=== PATIENT | male | born 1995 | race Hispanic/Latino ===

== ENCOUNTER 2017-12-13 07:13 | Emergency (ER) | payer SELFPAY ==
[2017-12-13] MEDS ORDERED: MEPERIDINE HCL 25 MG/0.5 ML ONE (08:32)
[2017-12-13] MEDS ORDERED: NA CHLORIDE 0.9% 1,000 ML ONE (08:33)
[2017-12-13] MEDS ORDERED: HYDROCODONE/APAP 10/325 TAB ONE (08:33)
--- NOTE | 2017-12-13 09:06 | EDPHYS ---
Physician Documentation [facility] Name: Jimenez Patrick Age: 22 yrs Sex: Male : 1995 Arrival Date: 12/13/2017 Time: 07:16 Bed 14 Private MD: ED Physician Dontrell Dunlap HPI: 12/13 07:51 This 22 yrs old Male presents to ER via Ambulatory with complaints of rn Abdominal Pain. 07:51 The patient presents with abdominal pain in the epigastric area. Onset: The rn symptoms/episode began/occurred last night. The symptoms do not radiate. Associated signs and symptoms: Pertinent negatives: anorexia, blood in stools, chest pain, constipation, diarrhea, dysuria, fever, headache, hematuria, nausea, palpitations, shortness of breath, vomiting, vomiting blood. Modifying factors: The symptoms are alleviated by nothing, the symptoms are aggravated by touching the area. Severity of pain: At its worst the pain was moderate in the emergency department the pain is unchanged. The patient has experienced similar episodes in the past. Reports hx of chronic pancreatitis, has had gallbladder removed in past, + epigastric abd pain since last night, identical to previous episodes. . Historical: - Allergies: 07:33 NKA; iw - Home Meds: 07:33 Humulin 70/30 100 unit/mL (70-30) Sub-Q susp [Active]; iw - PMHx: 07:33 Diabetes - IDDM; Pancreatitis; iw - PSHx: 07:33 Cholecystectomy; stents in pancreas; iw - Immunization history:: Adult Immunizations not up to date. - Social history:: Smoking status: Patient/guardian denies using tobacco. - Family history:: not pertinent. - Hospitalizations: : No recent hospitalization is reported. ROS: 07:51 Constitutional: Negative for fever, chills, and weight loss, Eyes: Negative for injury, rn pain, redness, and discharge, Cardiovascular: Negative for chest pain, palpitations, and edema, Respiratory: Negative for shortness of breath, cough, wheezing, and pleuritic chest pain, Abdomen/GI: Negative for nausea, vomiting, diarrhea, and constipation, MS/Extremity: Negative for injury and deformity, Skin: Negative for injury, rash, and discoloration, Neuro: Negative for headache, weakness, numbness, tingling, and seizure. Exam: 07:51 Constitutional: This is a well developed, well nourished patient who is awake, alert, rn and in no acute distress. Head/Face: Normocephalic, atraumatic. Eyes: Pupils equal round and reactive to light, extra-ocular motions intact. Lids and lashes normal. Conjunctiva and sclera are non-icteric and not injected. Cornea within normal limits. Periorbital areas with no swelling, redness, or edema. Cardiovascular: Regular rate and rhythm with a normal S1 and S2. No gallops, murmurs, or rubs. Normal PMI, no JVD. No pulse deficits. Respiratory: Lungs have equal breath sounds bilaterally, clear to auscultation and percussion. No rales, rhonchi or wheezes noted. No increased work of breathing, no retractions or nasal flaring. Abdomen/GI: soft, mild epigastric abd tenderness, no rebound, no masses, no peritoneal signs MS/ Extremity: Pulses equal, no cyanosis. Neurovascular intact. Full, normal range of motion. Equal circumference. Neuro: Awake and alert, GCS 15, oriented to person, place, time, and situation. Cranial nerves II-XII grossly intact. Motor strength 5/5 in all extremities. Sensory grossly intact. Cerebellar exam normal. Normal gait. Vital Signs: 07:33 BP 136 / 100; Pulse 85; Resp 16; Temp 98.2; Pulse Ox 99% on R/A; Weight 104.33 kg; iw Height 5 ft. 9 in. (175.26 cm); Pain 7/10; 08:52 BP 134 / 98; Pulse 61; Resp 16; Pulse Ox 98% on R/A; ae1 09:14 BP 134 / 76; Pulse 49; Resp 15; Pulse Ox 99% on R/A; mh5 10:00 BP 127 / 82; Pulse 70; Pulse Ox 99% on R/A; ap3 07:33 Body Mass Index 33.96 (104.33 kg, 175.26 cm) iw MDM: 07:29 Patient medically screened. rn 09:04 Differential diagnosis: pancreatitis. Data reviewed: vital signs, nurses notes, and as rn a result, I will discharge patient. Counseling: I had a detailed discussion with the patient and/or guardian regarding: the historical points, exam findings, and any diagnostic results supporting the discharge/admit diagnosis, the need for outpatient follow up, to return to the emergency department if symptoms worsen or persist or if there are any questions or concerns that arise at home. Response to treatment: the patient's symptoms have markedly improved after treatment, sleeping comfortably. Special discussion: I discussed with the patient/guardian in detail that at this point there is no indication for admission to the hospital. It is understood, however, that if the symptoms persist or worsen the patient needs to return immediately for re-evaluation. Based on the history and exam findings, there is no indication for further emergent testing or inpatient evaluation. I discussed with the patient/guardian the need to see the channeling machine runner for further evaluation of the symptoms. 12/13 07:35 Order name: IV Start; Complete Time: 08:39 rn Administered Medications: 08:36 Drug: [place] 10 mg-325 mg 1 tabs Route: PO; ae1 10:07 Follow up: Response: Pain is decreased ae1 08:36 Drug: NS 0.9% 1000 ml Route: IV; Rate: 1000 ml; Site: right antecubital; ae1 10:07 Follow up: IV Status: Completed infusion ae1 08:38 Drug: Demerol 25 mg Route: IVP; Site: right antecubital; ae1 10:07 Follow up: Response: Pain is decreased ae1 Disposition: 12/13/17 09:05 Discharged to Home. Impression: Other chronic pancreatitis. - Condition is Stable. - Discharge Instructions: Acute Pancreatitis. - Prescriptions for Zofran ODT 4 mg Oral tablet,disintegrating - place 1 tablet by TRANSLINGUAL route every 8-10 hours As needed; 20 tablet. Tylenol- Codeine #3 300-30 mg Oral Tablet - take 1 tablet by ORAL route every 6 hours As needed; 15 tablet. - Medication Reconciliation Form, Thank You Letter, Antibiotic Education, Prescription Opioid Use, Work release form form. - Follow up: Private Physician; When: As needed; Reason: Recheck today's complaints, Re-evaluation by your physician. - Problem is an acute exacerbation. - Symptoms have improved. Signatures: Renee Holly RN RN iw Nieto, Roman, MD MD rn Elliott, Andrea, RN RN ae1
--- NOTE | 2017-12-13 09:06 | ER ---
Nurse's Notes [facility] Name: Jimenez Patrick Age: 22 yrs Sex: Male : 1995 Arrival Date: 12/13/2017 Time: 07:16 Bed 14 Private MD: Diagnosis: Other chronic pancreatitis Presentation: 12/13 07:31 Presenting complaint: Patient states: has hx of pancreatitis, started having RUQ pain iw yesterday, denies n/v/d. Transition of care: patient was not received from another setting of care. Onset of symptoms was December 12, 2017. Care prior to arrival: None. 07:31 Method Of Arrival: Ambulatory iw 07:31 Acuity: MOSES 3 iw Historical: - Allergies: 07:33 NKA; iw - Home Meds: 07:33 Humulin 70/30 100 unit/mL (70-30) Sub-Q susp [Active]; iw - PMHx: 07:33 Diabetes - IDDM; Pancreatitis; iw - PSHx: 07:33 Cholecystectomy; stents in pancreas; iw - Immunization history:: Adult Immunizations not up to date. - Social history:: Smoking status: Patient/guardian denies using tobacco. - Family history:: not pertinent. - Hospitalizations: : No recent hospitalization is reported. Screenin:04 Abuse screen: Denies threats or abuse. Nutritional screening: No deficits noted. ap3 Tuberculosis screening: No symptoms or risk factors identified. Fall Risk None identified. Assessment: 08:02 General: Appears uncomfortable, Behavior is calm, cooperative. Pain: Complains of pain ap3 in right upper quadrant Pain currently is 7 out of 10 on a pain scale. Aggravated by lifting heavy objects at work. Neuro: Level of Consciousness is awake, alert, obeys commands, Oriented to person, place, time, situation. Cardiovascular: Heart tones S1 S2 present Patient's skin is warm and dry. Respiratory: Airway is patent Breath sounds are clear bilaterally. GI: Bowel sounds present X 4 quads. Abd is soft X 4 quads Abdomen is tender to palpation in right upper quadrant. : No signs and/or symptoms were reported regarding the genitourinary system. EENT: No signs and/or symptoms were reported regarding the EENT system. Derm: Skin is normal. Musculoskeletal: Reports pain in right upper quadrant. 08:55 Reassessment: Patient appears in no apparent distress at this time. Patient is resting ae1 with eyes closed, respirations even and unlabored, friend at bedside. Vital Signs: 07:33 BP 136 / 100; Pulse 85; Resp 16; Temp 98.2; Pulse Ox 99% on R/A; Weight 104.33 kg; iw Height 5 ft. 9 in. (175.26 cm); Pain 7/10; 08:52 BP 134 / 98; Pulse 61; Resp 16; Pulse Ox 98% on R/A; ae1 09:14 BP 134 / 76; Pulse 49; Resp 15; Pulse Ox 99% on R/A; mh5 10:00 BP 127 / 82; Pulse 70; Pulse Ox 99% on R/A; ap3 07:33 Body Mass Index 33.96 (104.33 kg, 175.26 cm) iw ED Course: 07:16 Patient arrived in ED. mr 07:29 Dontrell Dunlap MD is Attending Physician. rn 07:31 Dirk Hernandez RN is Primary Nurse. ae1 07:32 Triage completed. iw 07:33 Arm band placed on. iw 08:04 Patient has correct armband on for positive identification. Bed in low position. Call ap3 light in reach. Side rails up X 1. Adult w/ patient. 08:12 Inserted saline lock: 20 gauge in right antecubital area, using aseptic technique. ap3 10:01 No provider procedures requiring assistance completed. IV discontinued, intact, ap3 bleeding controlled, No redness/swelling at site. Pressure dressing applied. Administered Medications: 08:36 Drug: [place] 10 mg-325 mg 1 tabs Route: PO; ae1 10:07 Follow up: Response: Pain is decreased ae1 08:36 Drug: NS 0.9% 1000 ml Route: IV; Rate: 1000 ml; Site: right antecubital; ae1 10:07 Follow up: IV Status: Completed infusion ae1 08:38 Drug: Demerol 25 mg Route: IVP; Site: right antecubital; ae1 10:07 Follow up: Response: Pain is decreased ae1 Outcome: 09:05 Discharge ordered by . rn 10:01 Discharged to home ambulatory, with friend. ap3 10:01 Condition: stable 10:01 Discharge instructions given to patient, Instructed on discharge instructions, follow up and referral plans. medication usage, Demonstrated understanding of instructions, Prescriptions given X 2. 10:07 Attestation : I agree with the charting done by Dorie Cates, nursing resident. . ae1 10:08 Patient left the ED. ae1 Signatures: Flor Cherry Irene RN Dontrell Samuel MD MD rn Elliott, Andrea, RN RN ae1 Flor [facility] Dorie Cates3 Corrections: (The following items were deleted from the chart) 09:27 08:55 Reassessment: Patient appears in no apparent distress at this time. Patient is ae1 resting with eyes closed, respirations even and unlabored, friend at bedside. Patient states feeling better. ae1
[2017-12-13 10:13] VITALS: TEMP 98.2
[2017-12-13 10:19] VITALS: BP 127/82; O2SAT 99
== END 2017-12-13 10:08 | disposition home or self-care (01) ==
LOC: ER 07:13
DX: K86.1 Other chronic pancreatitis (principal); E11.8 Type 2 diabetes mellitus with unspecified complications
CPT/HCPCS: 96361; 96374; 99283; J2175; J7030

== ENCOUNTER 2018-12-02 11:10 | Emergency (ER) | payer SELFPAY ==
[2018-12-02] MEDS ORDERED: HYDROCODONE/APAP 5/325 MG TAB ONE (11:52)
[2018-12-02 11:55] LABS: Absolute Monocytes 0.5 K/uL (0.1-1.3); Absolute Neutrophil 6.5 K/uL (1.8-8.0); Eosinophils % 2.1 % (0-4.4); Hematocrit 45.8 % (39.6-49.0); Lymphocytes % 21.2 % (15.3-44.8); MPV 9.4 fL (7.6-11.3); Monocytes % 5.4 % (3.3-12.3)
[2018-12-02 12:08] LABS: BUN Blood Urea Nitrogen 12 mg/dL (7-18); Bicarbonate 26 mmol/L (21-32); Glucose Level 381 mg/dL (74-106); Potassium 4.2 mmol/L (3.5-5.1); Sodium Level 138 mmol/L (136-145)
--- NOTE | 2018-12-02 12:48 | RAD REPORT ---
EXAM DESCRIPTION: CT - Soft Tissue Neck W/Contr CLINICAL HISTORY: left submandibular swelling Pain and swelling COMPARISON: No comparisons TECHNIQUE All CT scans are performed using dose optimization technique as appropriate and may includ e automated exposure control or mA/KV adjustment according to patient size. FINDINGS: Cystic mass is identified along the lateral left aspect of the neck measuring 4.6 x 3.0 x 5.7 cm (T x AP x CC). This cyst seen to be located anterior to the left sternocleidomastoid muscle po sterior to the left submandibular gland. Few mildly prominent lymph nodes are present along the right jugular chain, largest measuring 12 mm. No additional neck mass seen. No prevertebral soft tissue swelling. IMPRESSION: Large cystic mass left neck is seen measuring 4.6 x 5.7 mm. Differential consideration i ncludes cystic metastatic lymph node from EBV related head and neck carcinoma and branchial cleft cys t.
--- NOTE | 2018-12-02 13:04 | EDPHYS ---
Physician Documentation [facility] Name: Jimenez Patrick Age: 23 yrs Sex: Male : 1995 Arrival Date: 12/02/2018 Time: 11:14 Bed 20 Private MD: Tayla Diaz H ED Physician Dontrell Dunlap HPI: 12/02 11:53 This 23 yrs old Male presents to ER via Ambulatory with complaints of Neck rn Swelling. 11:53 The patient or guardian complains of pain, swelling. The symptoms are located on the rn left submandibular neck. Onset: The symptoms/episode began/occurred 5 day(s) ago. Associated signs and symptoms: Pertinent negatives: fever. Modifying factors: The symptoms are alleviated by nothing. the symptoms are aggravated by pressure. Severity of symptoms: At their worst the symptoms were mild, in the emergency department the symptoms are unchanged. The patient has not experienced similar symptoms in the past. The patient has been recently seen by a physician:. Reports left neck swelling for 5 days, put on abx by pcp, not sure what abx, reports not worse but not better either, no trouble breathing or swallowing, no trauma. . Historical: - Allergies: 11:42 NKA; iw - PMHx: 11:42 Diabetes - IDDM; Pancreatitis; iw - PSHx: 11:42 Cholecystectomy; stents in pancreas; iw - Family history:: not pertinent. - Hospitalizations: : No recent hospitalization is reported. ROS: 11:53 Constitutional: Negative for fever, chills, and weight loss, Eyes: Negative for injury, rn pain, redness, and discharge, ENT: + left submandibular swelling Neck: Negative for injury Cardiovascular: Negative for chest pain, palpitations, and edema, Respiratory: Negative for shortness of breath, cough, wheezing, and pleuritic chest pain, Skin: Negative for injury, rash, and discoloration, Neuro: Negative for headache, weakness, numbness, tingling, and seizure. Exam: 11:53 Constitutional: This is a well developed, well nourished patient who is awake, alert, rn and in no acute distress. Head/Face: Normocephalic, atraumatic. Eyes: Pupils equal round and reactive to light, extra-ocular motions intact. Lids and lashes normal. Conjunctiva and sclera are non-icteric and not injected. Cornea within normal limits. Periorbital areas with no swelling, redness, or edema. ENT: MMM, no stridor Neck: Trachea midline, + left submandibular swelling, mobile, non-tender Vital Signs: 11:45 BP 133 / 91; Pulse 87; Resp 16 S; Temp 98.0(O); Pulse Ox 99% on R/A; Pain 5/10; em MDM: 11:31 Patient medically screened. rn 13:01 Differential diagnosis: lymphadenitis, cyst, head and neck cancer, salivary stone. Data rn reviewed: vital signs, nurses notes. 13:02 Counseling: I had a detailed discussion with the patient and/or guardian regarding: the rn historical points, exam findings, and any diagnostic results supporting the discharge/admit diagnosis, lab results, radiology results, the need for outpatient follow up, to return to the emergency department if symptoms worsen or persist or if there are any questions or concerns that arise at home. Special discussion: I discussed with the patient/guardian in detail that at this point there is no indication for admission to the hospital. It is understood, however, that if the symptoms persist or worsen the patient needs to return immediately for re-evaluation. 13:04 ED course: Advised patient to complete abx, and if does not improve with abx, to make rn appt with ENT for further diagnostic w/u. States already planning on making appt with Dr. Castro on Tuesday. Told him if does not improve, needs workup for head and neck cancer, also smokes and drinks ETOH.. 12/02 11:38 Order name: CBC with Diff; Complete Time: 12:16 rn 12/02 11:38 Order name: Basic Metabolic Panel; Complete Time: 12:16 rn 12/02 11:38 Order name: IV Start; Complete Time: 12:13 rn 12/02 11:38 Order name: CT Soft Tissue Neck W/contr; Complete Time: 12:55 rn Administered Medications: 12:15 Drug: [place] 5 mg-325 mg 1 tabs Route: PO; em 13:10 Follow up: Response: No adverse reaction; Pain is decreased em Disposition: 12/02/18 13:03 Discharged to Home. Impression: Cystic mass of neck, unspecified. - Condition is Stable. - Medication Reconciliation Form, Thank You Letter, Antibiotic Education, Prescription Opioid Use form. - Follow up: Brittani Castro MD; When: 5 - 6 days; Reason: Recheck today's complaints, Re-evaluation by your physician. - Problem is new. - Symptoms are unchanged. Signatures: Dispatcher [employer] EDGA Jules Lee, CYBER REVERSE ENGINEER CYBER REVERSE ENGINEER em Renee Holly RN RN iw Dontrell Dunlap MD MD open hearth furnace laborer: (The following items were deleted from the chart) 13:13 13:03 12/02/2018 13:03 Discharged to Home. Impression: Cystic mass of neck, em unspecified. Condition is Stable. Forms are Medication Reconciliation Form, Thank You Letter, Antibiotic Education, Prescription Opioid Use. Follow up: Brittani Castro; When: 5 - 6 days; Reason: Recheck today's complaints, Re-evaluation by your physician. Problem is new. Symptoms are unchanged. rn
--- NOTE | 2018-12-02 13:04 | ER ---
Nurse's Notes [facility] Name: Jimenez Patrick Age: 23 yrs Sex: Male : 1995 Arrival Date: 12/02/2018 Time: 11:14 Bed 20 Private MD: Tayla Diaz H Diagnosis: Cystic mass of neck, unspecified Presentation: 12/02 11:39 Presenting complaint: Patient states: enlarged lymph node on left side of neck, was iw seen by Dr. Diaz on Tuesday, was prescribed abx, states it's painful now, denies fever. Transition of care: patient was not received from another setting of care. Onset of symptoms was November 25, 2018. Risk Assessment: Do you want to hurt yourself or someone else? Patient reports no desire to harm self or others. Initial Sepsis Screen: Does the patient meet any 2 criteria? No. Patient's initial sepsis screen is negative. Does the patient have a suspected source of infection? No. Patient's initial sepsis screen is negative. Care prior to arrival: None. 11:39 Method Of Arrival: Ambulatory iw 11:39 Acuity: MOSES 3 iw Historical: - Allergies: 11:42 NKA; iw - PMHx: 11:42 Diabetes - IDDM; Pancreatitis; iw - PSHx: 11:42 Cholecystectomy; stents in pancreas; iw - Family history:: not pertinent. - Hospitalizations: : No recent hospitalization is reported. Screenin:53 Abuse screen: Denies threats or abuse. Nutritional screening: No deficits noted. em Tuberculosis screening: No symptoms or risk factors identified. Fall Risk None identified. Assessment: 12:01 General: Appears in no apparent distress. comfortable, Behavior is calm, cooperative, em Denies fever. Pain: Complains of pain in left sternocleidomastoid Pain currently is 5 out of 10 on a pain scale. Neuro: Level of Consciousness is awake, alert, obeys commands, Oriented to person, place, time, situation. Cardiovascular: Capillary refill < 3 seconds Patient's skin is warm and dry. Respiratory: Airway is patent Respiratory effort is even, unlabored, Respiratory pattern is regular, symmetrical. GI: Abdomen is flat. : No signs and/or symptoms were reported regarding the genitourinary system. EENT: Nares are clear Oral mucosa is moist. Throat is clear is pink Denies difficulty swallowing. Derm: Skin is intact, is healthy with good turgor, Skin is pink, warm \T\ dry. Musculoskeletal: Capillary refill < 3 seconds, Range of motion: intact in all extremities. Vital Signs: 11:45 BP 133 / 91; Pulse 87; Resp 16 S; Temp 98.0(O); Pulse Ox 99% on R/A; Pain 5/10; em ED Course: 11:14 Patient arrived in ED. mr 11:14 Tayla Diaz DO is Private Physician. mr 11:31 Dontrell Dunlap MD is Attending Physician. rn 11:33 Jules Lee LVN is Primary Nurse. em 11:42 Triage completed. iw 11:45 Arm band placed on. iw 11:50 Initial lab(s) drawn, by me, sent to lab. Inserted saline lock: 20 gauge in right em antecubital area, using aseptic technique. Blood collected. 11:53 Patient has correct armband on for positive identification. Bed in low position. Call em light in reach. Adult w/ patient. Pulse ox on. NIBP on. 12:07 Note: DIABETIC, CT PENDING LABS. vr 12:28 CT completed. Patient tolerated procedure well. Patient moved back from CT. vr 12:29 CT Soft Tissue Neck W/contr In Process Unspecified. EDOR 13:03 Brittani Castro MD is Referral Physician. rn 13:12 No provider procedures requiring assistance completed. IV discontinued, intact, em bleeding controlled, No redness/swelling at site. Pressure dressing applied. Administered Medications: 12:15 Drug: [place] 5 mg-325 mg 1 tabs Route: PO; em 13:10 Follow up: Response: No adverse reaction; Pain is decreased em Outcome: 13:03 Discharge ordered by MD. rn 13:12 Discharged to home ambulatory, with family. em 13:12 Condition: good 13:12 Discharge instructions given to patient, Instructed on discharge instructions, follow up and referral plans. Demonstrated understanding of instructions, follow-up care. 13:13 Patient left the ED. em Signatures: Dispatcher [employer] [facility] CherrySofía kyle mr Jules Lee LVN LVN em Renee Holly RN RN iw Dontrell Dunlap MD MD rn Davis, Victoria vr Corrections: (The following items were deleted from the chart) 11:52 11:45 BP 133 / 91; Pulse 87bpm; Resp 16bpm; Spontaneous; Pulse Ox 99% RA; iw em
[2018-12-02 15:15] VITALS: BP 133/91; TEMP 98; O2SAT 99
== END 2018-12-02 13:13 | disposition home or self-care (01) ==
LOC: ER 11:10
DX: R22.1 Localized swelling, mass and lump, neck (principal); E11.9 Type 2 diabetes mellitus without complications
CPT/HCPCS: 36415; 70491; 80048; 85025; 99284; Q9967

== ENCOUNTER 2019-03-05 03:20 | Emergency (ER) | payer SELFPAY ==
--- OUTSIDE RECORDS SUMMARY | 2019-03-05 03:22 | XMS REPORT ---
:1995 Author Organization [facility] Address [address] [place] [address] [address] [place] [id number] Care Team Providers Name Role Phone Unavailable Unavailable Unavailable Problems This patient has no known problems. Allergies, Adverse Reactions, Alerts This patient has no known allergies or adverse reactions. Medications This patient has no known medications.
[2019-03-05] MEDS ORDERED: FENTANYL CITR 100 MCG/2 ML ONE (04:29)
[2019-03-05] MEDS ORDERED: NA CHLORIDE 0.9% 1,000 ML ONE (04:29)
[2019-03-05 04:34] LABS: Absolute Lymphocytes (CBC) 3.4 K/uL (0.7-4.9); Basophils % 1.2 % (0-1.3); Eosinophils % 2.7 % (0-4.4); Lymphocytes % 33.6 % (15.3-44.8); Monocytes % 5.4 % (3.3-12.3); RBC Red Blood Cell Count 5.76 M/uL (4.33-5.43)
[2019-03-05 04:52] LABS: ALT/SGPT 88 U/L (12-78); AST/SGOT 47 U/L (15-37); Albumin 4.1 g/dL (3.4-5.0); Alkaline Phosphatase 150 U/L (45-117); BUN Blood Urea Nitrogen 12 mg/dL (7-18); Bicarbonate 25 mmol/L (21-32); Bilirubin Direct < 0.1 mg/dL (0-0.2); Bilirubin Total 0.8 mg/dL (0.2-1.0); Lipase 339 U/L (73-393); Potassium 4.1 mmol/L (3.5-5.1); Protein, Total 7.7 g/dL (6.4-8.2); Sodium Level 135 mmol/L (136-145)
[2019-03-05 04:53] LABS: Glucose Level 422 mg/dL (74-106)
--- NOTE | 2019-03-05 05:16 | EDPHYS ---
Physician Documentation [facility] Name: Jimenez Patrick Age: 23 yrs Sex: Male : 1995 Arrival Date: 03/05/2019 Time: 03:24 Bed 19 Private MD: Tayla Diaz H ED Physician Vincent Ahumada HPI: 03/05 05:09 This 23 yrs old Male presents to ER via Ambulatory with complaints of gs Abdominal Pain. 05:09 The patient presents with abdominal pain in the upper abdomen. Onset: The gs symptoms/episode began/occurred gradually. Associated signs and symptoms: Pertinent negatives: nausea and vomiting, chest pain, diarrhea. The symptoms are described as crampy. Modifying factors: The symptoms are alleviated by nothing, the symptoms are aggravated by nothing. Severity of pain: At its worst the pain was moderate in the emergency department the pain is unchanged. The patient has experienced similar episodes in the past, chronically. Historical: - Allergies: 03:42 NKA; jd3 - Home Meds: 03:42 Humulin 70/30 100 unit/mL (70-30) Sub-Q susp [Active]; jd3 - PMHx: 03:42 Pancreatitis; Diabetes - IDDM; jd3 - PSHx: 03:42 Cholecystectomy; stents in pancreas; jd3 - Immunization history:: Adult Immunizations up to date. - Social history:: Smoking status: Patient uses tobacco products, denies chronic smoking, but will smoke occasionally. - Ebola Screening: : Patient negative for fever greater than or equal to 101.5 degrees Fahrenheit, and additional compatible Ebola Virus Disease symptoms. ROS: 05:09 All other systems are negative. gs Exam: 05:09 Head/Face: Normocephalic, atraumatic. Eyes: Pupils equal round and reactive to light, gs extra-ocular motions intact. Lids and lashes normal. Conjunctiva and sclera are non-icteric and not injected. Cornea within normal limits. Periorbital areas with no swelling, redness, or edema. ENT: Nares patent. No nasal discharge, no septal abnormalities noted. Tympanic membranes are normal and external auditory canals are clear. Oropharynx with no redness, swelling, or masses, exudates, or evidence of obstruction, uvula midline. Mucous membranes moist. Neck: Trachea midline, no thyromegaly or masses palpated, and no cervical lymphadenopathy. Supple, full range of motion without nuchal rigidity, or vertebral point tenderness. No Meningismus. Chest/axilla: Normal chest wall appearance and motion. Nontender with no deformity. No lesions are appreciated. Cardiovascular: Regular rate and rhythm with a normal S1 and S2. No gallops, murmurs, or rubs. Normal PMI, no JVD. No pulse deficits. Respiratory: Lungs have equal breath sounds bilaterally, clear to auscultation and percussion. No rales, rhonchi or wheezes noted. No increased work of breathing, no retractions or nasal flaring. Back: No spinal tenderness. No costovertebral tenderness. Full range of motion. Skin: Warm, dry with normal turgor. Normal color with no rashes, no lesions, and no evidence of cellulitis. MS/ Extremity: Pulses equal, no cyanosis. Neurovascular intact. Full, normal range of motion. Neuro: Awake and alert, GCS 15, oriented to person, place, time, and situation. Cranial nerves II-XII grossly intact. Motor strength 5/5 in all extremities. Sensory grossly intact. Cerebellar exam normal. Normal gait. 05:09 Constitutional: The patient appears alert, awake. 05:09 Abdomen/GI: Palpation: mild abdominal tenderness, in all quadrants. Vital Signs: 03:42 BP 130 / 89; Pulse 85; Resp 17 S; Temp 98.2(O); Pulse Ox 97% on R/A; Weight 102.06 kg jd3 (R); Height 5 ft. 9 in. (175.26 cm) (R); Pain 6/10; 05:13 BP 134 / 89; Pulse 71; Resp 16 S; Pulse Ox 98% on R/A; Pain 2/10; jd3 03:42 Body Mass Index 33.23 (102.06 kg, 175.26 cm) jd3 MDM: 03:58 Patient medically screened. gs 05:09 Differential diagnosis: non-specific abd pain, pancreatitis. Data reviewed: vital gs signs, nurses notes, lab test result(s). Counseling: I had a detailed discussion with the patient and/or guardian regarding: the historical points, exam findings, and any diagnostic results supporting the discharge/admit diagnosis, lab results, the need for outpatient follow up. Response to treatment: the patient's symptoms have markedly improved after treatment, and as a result, I will discharge patient. 03/05 03:58 Order name: Basic Metabolic Panel 03/05 03:58 Order name: CBC with Diff; Complete Time: 04:47 03/05 03:58 Order name: Hepatic Function; Complete Time: 04:56 03/05 03:58 Order name: Lipase; Complete Time: 04:56 03/05 03:59 Order name: Basic Metabolic Panel; Complete Time: 04:56 EDMS 03/05 05:45 Order name: Glucose, Ancillary Testing EDMS 03/05 03:58 Order name: IV Saline Lock; Complete Time: 04:17 03/05 03:58 Order name: Labs collected and sent; Complete Time: 04:17 03/05 05:45 Order name: Glucose, Ancillary Testing EDMS Administered Medications: 04:16 Drug: NS 0.9% 1000 ml Route: IV; Rate: 1 bolus; Site: right forearm; jd3 05:20 Follow up: Response: No adverse reaction; IV Status: Completed infusion; IV Intake: jd3 1000ml 04:17 Drug: fentaNYL (PF) 25 mcg Route: IVP; Site: right forearm; jd3 05:15 Follow up: Response: No adverse reaction; Pain is decreased jd3 05:11 Drug: Insulin Regular Human 5 units {Co-Signature: [email or web address] (Zeynep Patrick RN).} Route: IVP; jd3 Site: right forearm; 05:44 Follow up: Response: No adverse reaction jd3 Point of Care Testing: Blood Glucose: 04:17 Blood Glucose: 400 mg/dL; jd3 05:46 Blood Glucose: 268 mg/dL; jd3 04:17 provider notified of blood sugar. jd3 Ranges: Critical Glucose Levels:Adult <50 mg/dl or >400 mg/dl <40 mg/dl or >180 mg/dl Disposition: 03/05/19 05:15 Discharged to Home. Impression: Abdominal and pelvic pain, Hyperglycemia, unspecified. - Condition is Stable. - Discharge Instructions: Hyperglycemia, Abdominal Pain, Adult, [id number]-[id number]. - Medication Reconciliation Form, Thank You Letter, Antibiotic Education, Prescription Opioid Use form. - Follow up: Private Physician; When: 2 - 3 days; Reason: Re-evaluation by your physician. Signatures: Dispatcher [employer] Vincent Virgen MD MD gs Davies, Jonathon RN RN jd3 Zeynep Patrick RN lp1 Corrections: (The following items were deleted from the chart) 05:47 05:15 03/05/2019 05:15 Discharged to Home. Impression: Abdominal and pelvic pain; jd3 Hyperglycemia, unspecified. Condition is Stable. Forms are Medication Reconciliation Form, Thank You Letter, Antibiotic Education, Prescription Opioid Use. Follow up: Private Physician; When: 2 - 3 days; Reason: Re-evaluation by your physician. gs
--- NOTE | 2019-03-05 05:16 | ER ---
Nurse's Notes [facility] Name: Jimenez Patrick Age: 23 yrs Sex: Male : 1995 Arrival Date: 03/05/2019 Time: 03:24 Bed 19 Private MD: Tayla Diaz H Diagnosis: Abdominal and pelvic pain;Hyperglycemia, unspecified Presentation: 03/05 03:39 Presenting complaint: Patient states: "I have chronic pancreatitis and I am having a jd3 similar pain today in my stomach. I also misplaced my insulin so my blood sugar is probably high.". Transition of care: patient was not received from another setting of care. Onset of symptoms was March 03, 2019. Risk Assessment: Do you want to hurt yourself or someone else? Patient reports no desire to harm self or others. Initial Sepsis Screen: Does the patient meet any 2 criteria? No. Patient's initial sepsis screen is negative. Does the patient have a suspected source of infection? No. Patient's initial sepsis screen is negative. Care prior to arrival: None. 03:39 Method Of Arrival: Ambulatory jd3 03:39 Acuity: MOSES 3 jd3 Historical: - Allergies: 03:42 NKA; jd3 - Home Meds: 03:42 Humulin 70/30 100 unit/mL (70-30) Sub-Q susp [Active]; jd3 - PMHx: 03:42 Pancreatitis; Diabetes - IDDM; jd3 - PSHx: 03:42 Cholecystectomy; stents in pancreas; jd3 - Immunization history:: Adult Immunizations up to date. - Social history:: Smoking status: Patient uses tobacco products, denies chronic smoking, but will smoke occasionally. - Ebola Screening: : Patient negative for fever greater than or equal to 101.5 degrees Fahrenheit, and additional compatible Ebola Virus Disease symptoms. Screenin:45 Abuse screen: Denies threats or abuse. Nutritional screening: No deficits noted. jd3 Tuberculosis screening: No symptoms or risk factors identified. Fall Risk Ambulatory Aid- None/Bed Rest/Nurse Assist (0 pts). Gait- Normal/Bed Rest/Wheelchair (0 pts) Mental Status- Oriented to own ability (0 pts). Total Dominguez Fall Scale indicates No Risk (0-24 pts). Assessment: 03:43 General: Appears in no apparent distress. uncomfortable, Behavior is calm, cooperative, jd3 appropriate for age. Pain: Complains of pain in right upper quadrant and left upper quadrant Pain does not radiate. Quality of pain is described as sharp, tender, Is continuous. Neuro: Level of Consciousness is awake, alert, obeys commands, Oriented to person, place, time, situation, Appropriate for age. Cardiovascular: Denies chest pain, Capillary refill < 3 seconds Patient's skin is warm and dry. Respiratory: Airway is patent Respiratory effort is even, unlabored, Respiratory pattern is regular, symmetrical, Denies cough, shortness of breath. GI: Abdomen is round non-distended, Bowel sounds present X 4 quads. Abd is soft X 4 quads Abdomen is tender to palpation in right upper quadrant and left upper quadrant Reports upper abdominal pain, Patient currently denies constipation, diarrhea, nausea, vomiting. : No signs and/or symptoms were reported regarding the genitourinary system. EENT: No signs and/or symptoms were reported regarding the EENT system. Derm: Skin is intact, Skin is dry, Skin is normal, Skin temperature is warm. Musculoskeletal: Circulation, motion, and sensation intact. Range of motion: intact in all extremities. 05:13 Reassessment: Patient appears in no apparent distress at this time. Patient and/or jd3 family updated on plan of care and expected duration. Pain level reassessed. Patient is alert, oriented x 3, equal unlabored respirations, skin warm/dry/pink. Patient states feeling better. 05:26 Reassessment: awaiting glucose recheck before discharge. jd3 Vital Signs: 03:42 BP 130 / 89; Pulse 85; Resp 17 S; Temp 98.2(O); Pulse Ox 97% on R/A; Weight 102.06 kg jd3 (R); Height 5 ft. 9 in. (175.26 cm) (R); Pain 6/10; 05:13 BP 134 / 89; Pulse 71; Resp 16 S; Pulse Ox 98% on R/A; Pain 2/10; jd3 03:42 Body Mass Index 33.23 (102.06 kg, 175.26 cm) jd3 ED Course: 03:24 Patient arrived in ED. do 03:24 Tayla Diaz, is Private Physician. do 03:38 Prosper Lowe, RN is Primary Nurse. jd3 03:41 Triage completed. jd3 03:43 Arm band placed on. jd3 03:45 Patient has correct armband on for positive identification. Bed in low position. Call jd3 light in reach. Side rails up X 1. Adult w/ patient. 03:58 Vincent Ahumada MD is Attending Physician. 04:12 Inserted saline lock: 20 gauge in right forearm, using aseptic technique. Blood jd3 collected. 05:32 No provider procedures requiring assistance completed. jd3 05:47 IV discontinued, intact, bleeding controlled, No redness/swelling at site. Pressure jd3 dressing applied. Administered Medications: 04:16 Drug: NS 0.9% 1000 ml Route: IV; Rate: 1 bolus; Site: right forearm; jd3 05:20 Follow up: Response: No adverse reaction; IV Status: Completed infusion; IV Intake: jd3 1000ml 04:17 Drug: fentaNYL (PF) 25 mcg Route: IVP; Site: right forearm; jd3 05:15 Follow up: Response: No adverse reaction; Pain is decreased jd3 05:11 Drug: Insulin Regular Human 5 units {Co-Signature: lp1 (Zeynep Patrick RN).} Route: IVP; jd3 Site: right forearm; 05:44 Follow up: Response: No adverse reaction jd3 Point of Care Testing: Blood Glucose: 04:17 Blood Glucose: 400 mg/dL; jd3 05:46 Blood Glucose: 268 mg/dL; jd3 04:17 provider notified of blood sugar. jd3 Ranges: Intake: 05:20 IV: 1000ml; Total: 1000ml. jd3 Outcome: 05:15 Discharge ordered by . 05:46 Discharged to home ambulatory, with family. jd3 05:46 Condition: stable 05:46 Discharge instructions given to patient, family, Instructed on discharge instructions, follow up and referral plans. Demonstrated understanding of instructions, follow-up care. 05:47 Patient left the ED. jd3 Signatures: Annmarie Fam Gregory, MD MD gs Davies, Jonathon, RN RN jd3 Zeynep Patrick RN lp1 Corrections: (The following items were deleted from the chart) 04:18 03:51 Blood Glucose: Blood Glucose Xxazfyu=540 mg/dL. jd3 jd3
[2019-03-05] MEDS ORDERED: INSULIN -REGULAR HUMAN 50 UNIT/0.5 ML ML ONE ×2 (05:22→05:24)
[2019-03-07 16:33] VITALS: BP 134/89; TEMP 98.2; O2SAT 98
== END 2019-03-05 05:47 | disposition home or self-care (01) ==
LOC: ER 03:20
DX: E11.65 Type 2 diabetes mellitus with hyperglycemia (principal); K85.90 Acute pancreatitis without necrosis or infection, unspecified; Z72.0 Tobacco use; Z79.4 Long term (current) use of insulin
CPT/HCPCS: 36415; 80048; 80076; 82962; 83690; 85025; 96361; 96374; 96375; 99284; J3010; J7030

== ENCOUNTER 2019-06-15 06:56 | Inpatient (IN) | payer SELFPAY ==
[2019-06-15] MEDS ORDERED: HALOPERIDOL LACT 5 MG/ML INJ ONE (07:27)
[2019-06-15] MEDS ORDERED: NA CHLORIDE 0.9% 1,000 ML ONE (07:27)
[2019-06-15 07:44] LABS: Absolute Lymphocytes (CBC) 2.7 K/uL (0.7-4.9); Basophils % 0.8 % (0-1.3); Hematocrit 53.7 % (39.6-49.0); Lymphocytes % 19.3 % (15.3-44.8); MPV 9.8 fL (7.6-11.3); RBC Red Blood Cell Count 6.19 M/uL (4.33-5.43)
[2019-06-15 08:38] LABS: Albumin 4.9 g/dL (3.4-5.0); Bilirubin Direct 0.3 mg/dL (0-0.2); Bilirubin Total 1.9 mg/dL (0.2-1.0); Potassium 4.1 mmol/L (3.5-5.1)
[2019-06-15] MEDS ORDERED: D5 0.9 NS 1,000 ML IV ONE (08:49)
[2019-06-15] MEDS ORDERED: INSULIN -REGULAR HUMAN 100 UNIT in NA CHLORIDE 0.9% 100 ML IV SCH (09:00)
--- NOTE | 2019-06-15 09:17 | ER ---
Nurse's Notes [facility] Name: Jimenez Patrick Age: 23 yrs Sex: Male : 1995 Arrival Date: 06/15/2019 Time: 06:58 Bed 13 Private MD: Diagnosis: Diabetes mellitus due to underlying condition with ketoacidosis without coma Presentation: 06/15 07:18 Presenting complaint: Patient states: upper abd pain, vomiting since 0300 today, hx of iw pancreatitis and diabetes. Transition of care: patient was not received from another setting of care. Onset of symptoms was June 15, 2019. Risk Assessment: Do you want to hurt yourself or someone else? Patient reports no desire to harm self or others. Initial Sepsis Screen: Does the patient meet any 2 criteria? No. Patient's initial sepsis screen is negative. Does the patient have a suspected source of infection? No. Patient's initial sepsis screen is negative. Care prior to arrival: None. 07:18 Method Of Arrival: Ambulatory 07:18 Acuity: MOSES 3 iw Historical: - Allergies: 07:17 NKA; iw - Home Meds: 07:17 Humulin 70/30 100 unit/mL (70-30) Sub-Q susp [Active]; iw - PMHx: 07:17 Diabetes - IDDM; Pancreatitis; iw - PSHx: 07:17 Cholecystectomy; pancreatic stents X 2; iw - Immunization history:: Adult Immunizations not up to date. - Social history:: Smoking status: Patient/guardian denies using tobacco, Patient uses alcohol, occasionally. Patient/guardian denies using street drugs. - Ebola Screening: : Patient negative for fever greater than or equal to 101.5 degrees Fahrenheit, and additional compatible Ebola Virus Disease symptoms Patient denies exposure to infectious person Patient denies travel to an Ebola-affected area in the 21 days before illness onset No symptoms or risks identified at this time. Screenin:30 Abuse screen: Denies threats or abuse. Nutritional screening: No deficits noted. em Tuberculosis screening: No symptoms or risk factors identified. Fall Risk None identified. Assessment: 07:31 General: Appears in no apparent distress. comfortable, Behavior is calm, cooperative, em Denies fever. Pain: Complains of pain in epigastric area Pain currently is 8 out of 10 on a pain scale. Quality of pain is described as burning, Pain began 0300 this morning. Neuro: Level of Consciousness is awake, alert, obeys commands, Oriented to person, place, time, situation, Appropriate for age. Cardiovascular: Capillary refill < 3 seconds Patient's skin is warm and dry. Respiratory: Airway is patent Respiratory effort is even, unlabored, Respiratory pattern is regular, symmetrical. GI: Abdomen is flat, Bowel sounds present X 4 quads. Abd is soft X 4 quads Abdomen is tender to palpation in right upper quadrant and left upper quadrant Reports upper abdominal pain, nausea, vomiting, Patient currently denies diarrhea. Derm: Skin is intact, is healthy with good turgor, Skin is pink, warm \T\ dry. Musculoskeletal: Capillary refill < 3 seconds, Range of motion: intact in all extremities. 07:38 Reassessment: I agree with the above assessment. tw2 08:30 Reassessment: Patient and/or family updated on plan of care and expected duration. Pain tw2 level reassessed. Patient is alert, oriented x 3, equal unlabored respirations, skin warm/dry/pink. 09:27 Reassessment: Patient appears in no apparent distress at this time. No changes from tw2 previously documented assessment. Patient and/or family updated on plan of care and expected duration. Pain level reassessed. Patient is alert, oriented x 3, equal unlabored respirations, skin warm/dry/pink. 10:28 Reassessment: Patient appears in no apparent distress at this time. No changes from tw2 previously documented assessment. Patient and/or family updated on plan of care and expected duration. Pain level reassessed. Patient is alert, oriented x 3, equal unlabored respirations, skin warm/dry/pink. Vital Signs: 07:16 BP 130 / 98; Pulse 109; Resp 18 S; Temp 97.0(TE); Pulse Ox 97% on R/A; Weight 98.88 kg; iw Height 5 ft. 9 in. (175.26 cm); Pain 8/10; 07:48 BP 120 / 83; Pulse 114; Resp 19; Pulse Ox 96% on R/A; tw2 08:30 BP 113 / 70; Pulse 83; Resp 17; Pulse Ox 96% on R/A; tw2 09:27 BP 100 / 68; Pulse 92; Resp 17; Pulse Ox 96% on R/A; tw2 10:20 BP 128 / 88; Pulse 83; Resp 17; Pulse Ox 98% on R/A; tw2 07:16 Body Mass Index 32.19 (98.88 kg, 175.26 cm) iw ED Course: 06:58 Patient arrived in ED. ds1 07:12 Vincent Ahumada MD is Attending Physician. gs 07:18 Triage completed. iw 07:18 Arm band placed on. iw 07:26 Stacy Li RN is Primary Nurse. tw2 07:30 Patient has correct armband on for positive identification. Placed in gown. Bed in low em position. Call light in reach. Pulse ox on. NIBP on. 07:30 Initial lab(s) drawn, by me, sent to lab. Inserted saline lock: 20 gauge in right em antecubital area, using aseptic technique. Blood collected. 09:01 Inserted saline lock: 22 gauge in right forearm, using aseptic technique. tw2 09:15 Rogelio Baca is Hospitalizing Provider. gs 11:35 No provider procedures requiring assistance completed. Patient admitted, IV remains in tw2 place. Administered Medications: 07:32 Drug: NS 0.9% 1000 ml Route: IV; Rate: 1 bolus; Site: right antecubital; tw2 08:45 Follow up: Response: No adverse reaction; IV Status: Completed infusion; IV Intake: tw2 1000ml 07:32 Drug: HALdol 2.5 mg Route: IVP; Site: right antecubital; tw2 09:26 Follow up: Response: No adverse reaction; Nausea is decreased tw2 09:23 Drug: Insulin Drip - (Insulin Regular Human 100 units, NS 0.9% 100 ml) {Co-Signature: tw2 em (Jules Lee [employer]YNAM[employer] AX DEVELOPER).} Route: IV; Rate: 0.05 units/kg; Site: right antecubital; 09:26 Drug: D5-NS 1000 ml Route: IV; Rate: 125 ml/hr; Site: right forearm; tw2 11:14 Follow up: IV Status: Infusion continued upon admission tw2 11:15 Follow up: IV Status: Infusion continued upon admission tw2 11:17 CANCELLED (Duplicate Order): morphine 2 mg IVP once; RASS on ADMIN: Combtv4, Very tw2 Agttd3, Agttd2, Rstlss1, AlertClm0, Drwsy-1, Lt Sdtn-2, Mod Sdtn-3, Dp Sdtn-4, UnArsble-5 11:20 Drug: morphine 2 mg Route: IVP; Site: right forearm; tw2 11:22 Follow up: Response: No adverse reaction; RASS: Alert and Calm (0) tw2 Point of Care Testing: Blood Glucose: 07:16 Blood Glucose: 371 mg/dL; iw 10:18 Blood Glucose: 285 mg/dL; tw2 11:13 Blood Glucose: 216 mg/dL; tw2 Ranges: Intake: 08:45 IV: 1000ml; Total: 1000ml. tw2 Outcome: 09:16 Decision to Hospitalize by Provider. 11:35 Patient left the ED. 11:35 Admitted to tw2 11:35 Admitted to ICU accompanied by nurse, via stretcher, room 8, on monitor, with chart, Report called to ERIC Smalls 11:35 Condition: stable 11:35 Instructed on the need for admit. Signatures: Jules Lee LVN LVN em [place], Demi ds1 Renee Holly, RN RN iw Stacy Li RN RN tw2 Vincent Ahumada MD MD Jules Lee LVN em
--- NOTE | 2019-06-15 09:17 | EDPHYS ---
Physician Documentation [facility] Name: Jimenez Patrick Age: 23 yrs Sex: Male : 1995 Arrival Date: 06/15/2019 Time: 06:58 Bed 13 Private MD: ED Physician Vincent Ahumada HPI: 06/15 09:04 This 23 yrs old Male presents to ER via Ambulatory with complaints of gs Abdominal Pain. 09:04 The patient presents with abdominal pain that is diffuse. Onset: The symptoms/episode gs began/occurred gradually. The symptoms do not radiate. Associated signs and symptoms: Pertinent positives: vomiting. The symptoms are described as crampy. Modifying factors: The symptoms are alleviated by nothing, the symptoms are aggravated by nothing. Severity of pain: At its worst the pain was severe in the emergency department the pain is unchanged. The patient has experienced similar episodes in the past, chronically. Historical: - Allergies: 07:17 NKA; iw - Home Meds: 07:17 Humulin 70/30 100 unit/mL (70-30) Sub-Q susp [Active]; iw - PMHx: 07:17 Diabetes - IDDM; Pancreatitis; iw - PSHx: 07:17 Cholecystectomy; pancreatic stents X 2; iw - Immunization history:: Adult Immunizations not up to date. - Social history:: Smoking status: Patient/guardian denies using tobacco, Patient uses alcohol, occasionally. Patient/guardian denies using street drugs. - Ebola Screening: : Patient negative for fever greater than or equal to 101.5 degrees Fahrenheit, and additional compatible Ebola Virus Disease symptoms Patient denies exposure to infectious person Patient denies travel to an Ebola-affected area in the 21 days before illness onset No symptoms or risks identified at this time. ROS: 09:13 All other systems are negative. gs Exam: 09:13 Head/Face: Normocephalic, atraumatic. Eyes: Pupils equal round and reactive to light, gs extra-ocular motions intact. Lids and lashes normal. Conjunctiva and sclera are non-icteric and not injected. Cornea within normal limits. Periorbital areas with no swelling, redness, or edema. ENT: Nares patent. No nasal discharge, no septal abnormalities noted. Tympanic membranes are normal and external auditory canals are clear. Oropharynx with no redness, swelling, or masses, exudates, or evidence of obstruction, uvula midline. Mucous membranes moist. Neck: Trachea midline, no thyromegaly or masses palpated, and no cervical lymphadenopathy. Supple, full range of motion without nuchal rigidity, or vertebral point tenderness. No Meningismus. Chest/axilla: Normal chest wall appearance and motion. Nontender with no deformity. No lesions are appreciated. Cardiovascular: Regular rate and rhythm with a normal S1 and S2. No gallops, murmurs, or rubs. Normal PMI, no JVD. No pulse deficits. Respiratory: Lungs have equal breath sounds bilaterally, clear to auscultation and percussion. No rales, rhonchi or wheezes noted. No increased work of breathing, no retractions or nasal flaring. Back: No spinal tenderness. No costovertebral tenderness. Full range of motion. Skin: Warm, dry with normal turgor. Normal color with no rashes, no lesions, and no evidence of cellulitis. MS/ Extremity: Pulses equal, no cyanosis. Neurovascular intact. Full, normal range of motion. Neuro: Awake and alert, GCS 15, oriented to person, place, time, and situation. Cranial nerves II-XII grossly intact. Motor strength 5/5 in all extremities. Sensory grossly intact. Cerebellar exam normal. Normal gait. 09:13 Constitutional: The patient appears alert, awake, uncomfortable. 09:13 Abdomen/GI: Palpation: mild abdominal tenderness, in all quadrants, rebound tenderness, is not appreciated. Vital Signs: 07:16 BP 130 / 98; Pulse 109; Resp 18 S; Temp 97.0(TE); Pulse Ox 97% on R/A; Weight 98.88 kg; iw Height 5 ft. 9 in. (175.26 cm); Pain 8/10; 07:48 BP 120 / 83; Pulse 114; Resp 19; Pulse Ox 96% on R/A; tw2 08:30 BP 113 / 70; Pulse 83; Resp 17; Pulse Ox 96% on R/A; tw2 09:27 BP 100 / 68; Pulse 92; Resp 17; Pulse Ox 96% on R/A; tw2 10:20 BP 128 / 88; Pulse 83; Resp 17; Pulse Ox 98% on R/A; tw2 07:16 Body Mass Index 32.19 (98.88 kg, 175.26 cm) MDM: 08:00 Patient medically screened. 09:13 Differential diagnosis: non-specific abd pain, pancreatitis, dka, dehydration. Data gs reviewed: vital signs, nurses notes, lab test result(s). Counseling: I had a detailed discussion with the patient and/or guardian regarding: the historical points, exam findings, and any diagnostic results supporting the discharge/admit diagnosis, the need for further work-up and treatment in the hospital. 06/15 07:19 Order name: NOVA; Complete Time: 08:40 iw 06/15 07:22 Order name: Basic Metabolic Panel; Complete Time: 08:42 06/15 07:22 Order name: CBC with Diff; Complete Time: 08:40 06/15 07:22 Order name: Hepatic Function; Complete Time: 08:42 06/15 07:22 Order name: Lipase; Complete Time: 08:42 06/15 08:42 Order name: Magnesium 06/15 08:42 Order name: Phosphorus 06/15 08:42 Order name: Urine Microscopic Only 06/15 08:44 Order name: ABG 06/15 09:23 Order name: Glucometer Result [facility] 06/15 10:20 [facility]: [facility] 06/[facility] 11:14 Order name: Glucometer Result [facility] 06/15 11:19 Order name: Glucose, Ancillary Testing EDME 06/15 11:23 Order name: Urine Dipstick--Ancillary (enter results) 06/15 07:22 Order name: IV Saline Lock; Complete Time: 07:30 06/15 07:22 Order name: Labs collected and sent; Complete Time: 07:29 gs Administered Medications: 07:32 Drug: NS 0.9% 1000 ml Route: IV; Rate: 1 bolus; Site: right antecubital; tw2 08:45 Follow up: Response: No adverse reaction; IV Status: Completed infusion; IV Intake: tw2 1000ml 07:32 Drug: HALdol 2.5 mg Route: IVP; Site: right antecubital; tw2 09:26 Follow up: Response: No adverse reaction; Nausea is decreased tw2 09:23 Drug: Insulin Drip - (Insulin Regular Human 100 units, NS 0.9% 100 ml) {Co-Signature: tw2 em (Jules Lee FORENSIC TOXICOLOGIST).} Route: IV; Rate: 0.05 units/kg; Site: right antecubital; 09:26 Drug: D5-NS 1000 ml Route: IV; Rate: 125 ml/hr; Site: right forearm; tw2 11:14 Follow up: IV Status: Infusion continued upon admission tw2 11:15 Follow up: IV Status: Infusion continued upon admission tw2 11:17 CANCELLED (Duplicate Order): morphine 2 mg IVP once; RASS on ADMIN: Combtv4, Very tw2 Agttd3, Agttd2, Rstlss1, AlertClm0, Drwsy-1, Lt Sdtn-2, Mod Sdtn-3, Dp Sdtn-4, UnArsble-5 11:20 Drug: morphine 2 mg Route: IVP; Site: right forearm; tw2 11:22 Follow up: Response: No adverse reaction; RASS: Alert and Calm (0) tw2 Point of Care Testing: Blood Glucose: 07:16 Blood Glucose: 371 mg/dL; iw 10:18 Blood Glucose: 285 mg/dL; tw2 11:13 Blood Glucose: 216 mg/dL; tw2 Ranges: Critical Glucose Levels:Adult <50 mg/dl or >400 mg/dl <40 mg/dl or >180 mg/dl Disposition: 06/15/19 09:16 Hospitalization ordered by Rogelio Baca for Inpatient Admission. Preliminary diagnosis is Diabetes mellitus due to underlying condition with ketoacidosis without coma. - Bed requested for Intensive Care Unit. - Status is Inpatient Admission. iw - Condition is Stable. - Problem is new. - Symptoms have improved. UTI on Admission? No Signatures: Dispatcher [employer] Renee Bradley RN RN iw Stacy Li RN RN tw2 Vincent Ahumada MD MD Kimmy Giles FORENSIC TOXICOLOGIST em Corrections: (The following items were deleted from the chart) 09:19 09:16 Hospitalization Ordered by Rogelio Baca for Inpatient Admission. Preliminary gs diagnosis is Diabetes mellitus due to underlying condition with ketoacidosis without coma. Bed requested for Telemetry/MedSurg (Inpatient). Status is Inpatient Admission. Condition is Stable. Problem is new. Symptoms have improved. UTI on Admission? No. gs 10:59 09:19 06/15/2019 09:16 Hospitalization Ordered by Rogelio Baca for Inpatient eb Admission. Preliminary diagnosis is Diabetes mellitus due to underlying condition with ketoacidosis without coma. Bed requested for Intensive Care Unit. Status is Inpatient Admission. Condition is Stable. Problem is new. Symptoms have improved. UTI on Admission? No. gs 11:17 11:16 morphine 2 mg IVP once; RASS on ADMIN: Combtv4, Very Agttd3, Agttd2, Rstlss1, tw2 AlertClm0, Drwsy-1, Lt Sdtn-2, Mod Sdtn-3, Dp Sdtn-4, UnArsble-5 ordered. tw2 11:35 10:59 06/15/2019 09:16 Hospitalization Ordered by Rogelio Baca for Inpatient iw Admission. Preliminary diagnosis is Diabetes mellitus due to underlying condition with ketoacidosis without coma. Bed requested for Intensive Care Unit. Status is Inpatient Admission. Condition is Stable. Problem is new. Symptoms have improved. UTI on Admission? No. eb
[2019-06-15 09:18] LABS: Arterial Blood Carboxyhemoglob 1.2 % (0-1.5); Blood Gas Oxyhemoglobin 95.5 % (94-97); Blood O2 Saturation 97.4 % (92-98.5)
[2019-06-15 09:24] LABS: Magnesium 2.1 mg/dL (1.8-2.4); Phosphorus 3.1 mg/dL (2.5-4.9)
--- NOTE | 2019-06-15 10:24 | P.HP ---
Certification for Inpatient With expected LOS: >2 Midnights Patient will require the following post-hospital care: None Practitioner: I am a practitioner with admitting privileges, knowledge of patient current condition, hospital course, and medical plan of care. Services: Services provided to patient in accordance with Admission requirements found in Title 42 Section 412.3 of the Code of Federal Regulations Patient History Date of Service: 06/15/19 Reason for admission: Nausea and vomiting and abdominal pain History of Present Illness: 23-year-old gentleman with a history of type 1 diabetes, history of chronic pancreatitis status post pancreatic stents presented to the emergency department with a complaint of nausea and vomiting of onset last night. He also developed abdominal pain after 3 bouts of vomiting. He denied any fever. He takes Novolin 70/34 diabetes and reports compliance with his insulin therapy. Patient was still nauseous in the ED. Blood work suggested metabolic acidosis and elevated glucose consistent with diabetic ketoacidosis. The pH 7.2, bicarb 13, glucose 321. Lipase was 34. Patient started on insulin drip and admitted for further management. Allergies No Known Drug Allergies Allergy (Verified 01/28/15 19:37) Unknown No Known Allergies Allergy (Uncoded 04/09/16 01:16) Unknown Home Medications: Esomeprazole Mag Trihydrate [Nexium] 40 mg PO DAILY 03/23/13 Insulin Lispro [Humalog*] 35 units SQ BID 11/17/13 Lisinopril 1 tab PO DAILY 11/17/13 Ondansetron HCl 1 tab PO Q6H PRN 11/17/13 Tramadol HCl [Ultram] 50 mg PO PRN PRN 01/28/15 Hydrocodone 10/APAP 325 [Hatch 10/325*] 1 tab PO Q6HP PRN #40 tab 01/30/15 Promethazine Tab [Phenergan -Tab] 25 mg PO Q6HP PRN #30 tab 01/30/15 Lipase/Protease/Amylase [Merry Wang 36,000 Units Capsule] 2 cap PO AC #90 capsule. 01/31/15 - Past Medical/Surgical History Diabetic: Yes -: IDDM -: CHRONIC PANCREATITIS -: GERD -: shaun -: stents in pancrease - Family History Mother -: Diabetes - Social History Smoking Status: Current some day smoker Alcohol use: No CD- Drugs: No Caffeine use: No Review of Systems Other: General: No fever, no malaise, no unintentional weight loss. Eyes: No eye discharge, Respiratory: No cough, no shortness of breath. CVS: No chest pain, no palpitation, no lightheadedness. GI: No constipation, no diarrhea. Genitourinary: No dysuria, no urinary frequency, no incontinence, no hematuria. Musculoskeletal: No joint pains, or joint swelling, no gait instability. Neurology: No headache, no asymmetric, weakness, no problem with swallowing. Except as documented, all other systems reviewed and negative. Physical Examination - Physical Exam General: Alert, In no apparent distress, Oriented x3 HEENT: Atraumatic, Normocephalic, Mucous membr. moist/pink Neck: Supple, JVD not distended, No Thyromegaly Respiratory: Clear to auscultation bilaterally, Normal air movement Cardiovascular: No edema, Normal pulses, Regular rate/rhythm, Normal S1 S2, No murmurs Capillary refill: <2 Seconds Gastrointestinal: Normal bowel sounds, Soft and benign, Non-distended, No tenderness Musculoskeletal: No swelling Integumentary: No rashes, No erythema Neurological: Normal gait, Normal speech, Normal strength at 5/5 x4 extr, Cranial nerves 3-12 intact - Studies Laboratory Data (last 24 hrs) 06/15/19 07:30: Phosphorus 3.1, Magnesium 2.1 06/15/19 07:30: WBC 14.0 H, Hgb 18.4 H, Hct 53.7 H, Plt Count 289 06/15/19 07:30: Sodium 135 L, Potassium 4.1, BUN 10, Creatinine 1.09, Glucose 321 H, Total Bilirubin 1.9 H, AST 31, ALT 63, Alkaline Phosphatase 134 H, Lipase 34 L Assessment and Plan - Problems (Diagnosis) (1) Diabetic ketoacidosis Current Visit: Yes Status: Acute Qualifiers: Diabetes mellitus complication detail: without coma (2) LFT elevation Current Visit: Yes Status: Acute (3) Chronic pancreatitis Onset Date: 01/28/15 Current Visit: No Status: Acute (4) GERD (gastroesophageal reflux disease) Current Visit: Yes Status: Acute - Plan Admit to ICU DKA protocol initiated with insulin drip and IV normal saline hydration. Accu-Cheks per DKA protocol Obtain liver ultrasound further evaluate elevated LFT. Protonix Monitor BMP per DKA protocol. Mild leukocytosis probably secondary. Follow UA result - Advance Directives Does patient have a Living Will: No Does patient have a Durable POA for Healthcare: No
[2019-06-15] MEDS ORDERED: ONDANSETRON 4 MG/2 ML VIAL IV PRN (11:02)
[2019-06-15] MEDS ORDERED: NACHLORIDE 0.45% 1,000 ML with POTASSIUM CL 20 MEQ IV SCH ×2 (11:02)
[2019-06-15] MEDS: D5.45NS W/KCL 20MEQ 1,000 ML IV SCH ×2 (11:02→13:43)
[2019-06-15] MEDS ORDERED: MORPHINE 2 MG/ML SYR ONE (11:20)
[2019-06-15 11:37] LABS: Urine Blood NEGATIVE (NEG); Urine Glucose 2+ (NEG); Urine Protein 1+ (NEG)
[2019-06-15] MEDS: NA CHLORIDE 0.9% 1,000 ML IV SCH ×2 (11:55→18:53)
[2019-06-15] MEDS: ENOXAPARIN 40 MG/0.4 ML SQ SCH (11:55)
[2019-06-15] MEDS ORDERED: NA CHLORIDE 0.9% 1,000 ML IV SCH (12:00)
[2019-06-15] MEDS ORDERED: SODIUM CHLORIDE 0.9% 10ML INJ IV PRN (12:02)
[2019-06-15] MEDS ORDERED: PANTOPRAZOLE 40 MG INJ ONE (12:07)
[2019-06-15 12:15] LABS: BUN Blood Urea Nitrogen 9 mg/dL (7-18); Bicarbonate 16 mmol/L (21-32); Glucose Level 238 mg/dL (74-106); Potassium 4.2 mmol/L (3.5-5.1); Sodium Level 139 mmol/L (136-145)
[2019-06-15 12:35] VITALS: O2SAT 100; BMI 29.1
[2019-06-15] MEDS: MORPHINE 2 MG/ML SYR IV PRN ×2 (13:43→18:31)
[2019-06-15 15:31] LABS: BUN Blood Urea Nitrogen 8 mg/dL (7-18); Bicarbonate 22 mmol/L (21-32); Glucose Level 118 mg/dL (74-106); Potassium 4.2 mmol/L (3.5-5.1); Sodium Level 140 mmol/L (136-145)
[2019-06-15] MEDS ORDERED: D50W 25 GM/50 ML SYRINGE IV PRN (15:45)
[2019-06-15] MEDS ORDERED: GLUCAGON 1 MG/VIAL IM PRN (15:45)
[2019-06-15] MEDS: INSULIN -REGULAR HUMAN 50 UNIT/0.5 ML ML SQ SCH ×2 (16:30→21:22)
--- NOTE | 2019-06-15 16:47 | RAD REPORT ---
EXAM DESCRIPTION: US - Liver Only - 06/15/2019 4:27 pm CLINICAL HISTORY: Abnormal liver function studies COMPARISON: CT imaging November 2016 TECHNIQUE: Sonographic evaluation of the right upper quadrant was performed as a dedicated liver ult rasound study. FINDINGS: Liver parenchyma shows a coarsened increased in echogenicity typical for fatty infiltratio n. This was present in 2017. Doppler evaluation shows no portal vein abnormality. Liver size is rahat l. Spleen is normal size. Pancreas is too obscured by bowel gas. Gallbladder is absent. No biliary tr ee dilatation. IMPRESSION: Fatty infiltration of the liver. No focal liver lesion. Pancreas is too obscured by bowel for assessment.
[2019-06-15 19:34] LABS: Potassium 5.3 mmol/L (3.5-5.1)
[2019-06-15] MEDS: PANTOPRAZOLE 40 MG INJ IVP SCH (21:22)
[2019-06-16] MEDS: NA CHLORIDE 0.9% 1,000 ML IV SCH (03:00)
[2019-06-16] MEDS: MORPHINE 2 MG/ML SYR IV PRN ×2 (03:00→07:38)
[2019-06-16 05:11] LABS: HDL Cholesterol 22 mg/dL (40-60); LDL Cholesterol, Calculated 56 (<130); Magnesium 1.8 mg/dL (1.8-2.4); Phosphorus 2.4 mg/dL (2.5-4.9)
[2019-06-16 05:12] LABS: Absolute Lymphocytes (CBC) 2.4 K/uL (0.7-4.9); Basophils % 0.7 % (0-1.3); Hematocrit 44.3 % (39.6-49.0); Lymphocytes % 27.4 % (15.3-44.8); MPV 9.8 fL (7.6-11.3); RBC Red Blood Cell Count 5.08 M/uL (4.33-5.43)
[2019-06-16 05:51] LABS: BUN Blood Urea Nitrogen 7 mg/dL (7-18); Bicarbonate 19 mmol/L (21-32); Glucose Level 215 mg/dL (74-106); Potassium 3.5 mmol/L (3.5-5.1); Sodium Level 142 mmol/L (136-145)
[2019-06-16] MEDS ORDERED: POTASSIUM 25 MEQ EFFERV TAB PO ONE (06:06)
[2019-06-16] MEDS: POTASS/SODIUM PHOSPHATE 1 PKT POWD.PACK PO SCH ×3 (06:19→08:17)
[2019-06-16] MEDS ORDERED: MAGNESIUM SULFATE 1 gm IVPB 1 GM/100 ML BAG IV ONE (06:32)
[2019-06-16] MEDS: PANTOPRAZOLE 40 MG INJ IVP SCH (07:37)
[2019-06-16] MEDS: ENOXAPARIN 40 MG/0.4 ML SQ SCH (07:37)
[2019-06-16] MEDS: INSULIN -REGULAR HUMAN 50 UNIT/0.5 ML ML SQ SCH ×2 (07:56→11:30)
--- NOTE | 2019-06-16 12:03 | P.DS ---
Admission Date: 06/15/19 Discharge Date: 06/19/19 Disposition: ROUTINE DISCHARGE Discharge Condition: GOOD Reason for Admission: Nausea and vomiting and abdominal pain Consultations: None Procedures: None - Problems (1) Diabetic ketoacidosis Status: Acute Qualifiers: Diabetes mellitus complication detail: without coma (2) LFT elevation Status: Acute (3) Chronic pancreatitis Onset Date: 01/28/15 Status: Acute (4) GERD (gastroesophageal reflux disease) Status: Acute Brief History of Present Illness: 23-year-old gentleman with a history of type 1 diabetes, history of chronic pancreatitis status post pancreatic stents presented to the emergency department with a complaint of nausea and vomiting of onset last night. He also developed abdominal pain after 3 bouts of vomiting. He denied any fever. He takes Novolin 70/34 diabetes and reported compliance with his insulin therapy. Patient was still nauseous in the ED. Blood work suggested metabolic acidosis and elevated glucose consistent with diabetic ketoacidosis. His pH was 7.2, bicarb 13, glucose 321. Lipase was 34. Patient was started on insulin drip and admitted for further management. Hospital Course: Patient was admitted to the ICU, treated with DKA protocol with insulin drip and IV normal saline. DKA resolved within 24 hrs, patient was transitioned to subcutaneous insulin. He also tolerated his meals without nausea vomiting. Abdominal ultrasound was performed to evaluate his abdominal pain and it reported fatty liver infiltrate, no focal lesions. He has DKA resolved. His blood sugar readings have improved. His blood sugar was 91 after 30 units of Novolin 70/30. Patient is advised to start Novolin 70/30, 30 units twice a day and titrate up to his usual home dose of 50 units twice a day according to his blood sugar readings. Vital Signs/Physical Exam: Temp Pulse Resp BP Pulse Ox 97.4 F 61 14 99/63 99 06/16/19 08:00 06/16/19 11:00 06/16/19 11:00 06/16/19 11:00 06/16/19 11:00 General: Alert, In no apparent distress, Oriented x3 HEENT: Mucous membr. moist/pink Neck: Supple, JVD not distended Respiratory: Clear to auscultation bilaterally, Normal air movement Cardiovascular: No edema, Regular rate/rhythm Gastrointestinal: Normal bowel sounds, Soft and benign, Non-distended, No tenderness Musculoskeletal: No swelling Integumentary: No rashes Laboratory Data at Discharge: WBC 8.6 K/uL (4.3-10.9) D 06/16/19 04:30 Hgb 15.4 g/dL (13.6-17.9) D 06/16/19 04:30 Hct 44.3 % (39.6-49.0) D 06/16/19 04:30 Plt Count 225 K/uL (152-406) D 06/16/19 04:30 Sodium 142 mmol/L (136-145) 06/16/19 04:30 Potassium 3.5 mmol/L (3.5-5.1) 06/16/19 04:30 BUN 7 mg/dL (7-18) 06/16/19 04:30 Creatinine 0.94 mg/dL (0.55-1.3) 06/16/19 04:30 Glucose 215 mg/dL (74-106) H 06/16/19 04:30 Phosphorus 2.4 mg/dL (2.5-4.9) L 06/16/19 04:30 Magnesium 1.8 mg/dL (1.8-2.4) 06/16/19 04:30 Total Bilirubin 1.9 mg/dL (0.2-1.0) H 06/15/19 07:30 AST 31 U/L (15-37) 06/15/19 07:30 ALT 63 U/L (12-78) 06/15/19 07:30 Alkaline Phosphatase 134 U/L (45-117) H 06/15/19 07:30 Triglycerides 113 mg/dL (<150) 06/16/19 04:30 Cholesterol 101 mg/dL (<200) 06/16/19 04:30 HDL Cholesterol 22 mg/dL (40-60) L 06/16/19 04:30 Cholesterol/HDL Ratio 4.59 06/16/19 04:30 Lipase 34 U/L (73-393) L 06/15/19 07:30 Home Medications: Insulin 70/30 NPH/Reg Human [Novolin 70/30*] 50 unit SQ BID 06/15/19 Pantoprazole [Protonix Tab] 40 mg PO DAILY 30 Days #30 tab 06/16/19 New Medications: Pantoprazole [Protonix Tab] 40 mg PO DAILY 30 Days #30 tab
[2019-06-16 12:33] LABS: BUN Blood Urea Nitrogen 8 mg/dL (7-18); Bicarbonate 21 mmol/L (21-32); Glucose Level 82 mg/dL (74-106); Magnesium 1.9 mg/dL (1.8-2.4); Phosphorus 2.9 mg/dL (2.5-4.9); Potassium 3.4 mmol/L (3.5-5.1); Sodium Level 145 mmol/L (136-145)
[2019-06-16 13:11] VITALS: BP 104/65
[2019-06-16 13:38] VITALS: TEMP 97.8
[2019-06-16] MEDS ORDERED: INSULIN 70/30 100 UNITS/ML SQ SCH (16:30)
== END 2019-06-16 13:07 | disposition home or self-care (01) | DRG 638 ==
LOC: ER 06:56 → ERHOLD 10:30 → 3RD-ICU 11:08
PROVIDERS: ADMIT Internal Medicine; ATTEND Internal Medicine
DX: E10.10 Type 1 diabetes mellitus with ketoacidosis without coma (principal); K86.1 Other chronic pancreatitis; K21.9 Gastro-esophageal reflux disease without esophagitis; R79.89 Other specified abnormal findings of blood chemistry
CPT/HCPCS: 36415; 76705; 80048; 80061; 80076; 81003; 82010; 82805; 82962; 83690; 83735; 84100; 85025; 96361; 96365; 96375; 99285; C9113; J1630; J1650; J1815; J2270; J3475; J7030; J7042

== ENCOUNTER 2019-08-04 07:29 | Emergency (ER) | payer SELFPAY ==
--- OUTSIDE RECORDS SUMMARY | 2019-08-04 07:31 | XMS REPORT ---
:1995 [facility] Address [address] [place] [address] [address] [place] [id number] Care Team Providers Name Role Phone Unavailable Unavailable Unavailable Problems This patient has no known problems. Allergies, Adverse Reactions, Alerts This patient has no known allergies or adverse reactions. Medications This patient has no known medications.
--- NOTE | 2019-08-04 07:49 | ER ---
Nurse's Notes [facility] Name: Jimenez Patrick Age: 24 yrs Sex: Male : 1995 Arrival Date: 08/04/2019 Time: 07:31 Bed 6 Private MD: Diagnosis: Unspecified sexually transmitted disease Presentation: 08/04 07:42 Presenting complaint: Patient states: bump to R groin x 2 weeks. Pt also reports ss discharge from penis x 1 month. Denies fever. Transition of care: patient was not received from another setting of care. Onset of symptoms was June 2019. Risk Assessment: Do you want to hurt yourself or someone else? Patient reports no desire to harm self or others. Initial Sepsis Screen: Does the patient meet any 2 criteria? No. Patient's initial sepsis screen is negative. Does the patient have a suspected source of infection? Yes: Other: possible STI. Care prior to arrival: None. 07:42 Method Of Arrival: Ambulatory ss 07:42 Acuity: MOSES 4 ss Triage Assessment: 07:45 General: Appears in no apparent distress. comfortable, Behavior is calm, cooperative, bp appropriate for age. Pain: Complains of pain in pelvis. EENT: No deficits noted. Neuro: No deficits noted. Cardiovascular: No deficits noted. Respiratory: No deficits noted. GI: No signs and/or symptoms were reported involving the gastrointestinal system. : Reports discharge, from penis that is. Derm: No deficits noted. Musculoskeletal: No deficits noted. Historical: - Allergies: 07:44 NKA; ss - Home Meds: 07:44 Humulin 70/30 100 unit/mL (70-30) Sub-Q susp [Active]; ss - PMHx: 07:44 Diabetes - IDDM; Chronic pancreatitis; ss - PSHx: 07:44 Cholecystectomy; pancreatic stent; ss - Immunization history:: Adult Immunizations unknown. - Social history:: Smoking status: Patient uses tobacco products, denies chronic smoking, but will smoke occasionally. - Family history:: not pertinent. - Ebola Screening: : Patient denies exposure to infectious person Patient denies travel to an Ebola-affected area in the 21 days before illness onset. - Hospitalizations: : No recent hospitalization is reported. Screenin:45 Abuse screen: Denies threats or abuse. Denies injuries from another. Nutritional bp screening: No deficits noted. Tuberculosis screening: No symptoms or risk factors identified. Fall Risk None identified. Assessment: 07:42 General: Appears in no apparent distress. comfortable, Behavior is calm, cooperative. ss Pain: Complains of pain in right femoral area Pain currently is 6 out of 10 on a pain scale. Quality of pain is described as tender, Pain began "2-3 weeks ago" Is continuous, Aggravated by palpation. Neuro: Level of Consciousness is awake, alert, obeys commands, Oriented to person, place, time, Speech is normal. Cardiovascular: Capillary refill < 3 seconds is brisk in bilateral fingers Patient's skin is warm and dry. Respiratory: Airway is patent Respiratory effort is even, unlabored, Respiratory pattern is regular, symmetrical. GI: Patient currently denies diarrhea, nausea, vomiting. GI: No signs and/or symptoms were reported involving the gastrointestinal system. : Reports discharge, white, since x 1 month Denies burning with urination. EENT: Nares are clear. Derm: Skin is intact, is healthy with good turgor, Skin is Skin is pink, warm \\T\\ dry. normal. Musculoskeletal: Circulation, motion, and sensation intact. Range of motion: intact in all extremities. 07:45 General: SEE TRIAGE NOTE. bp 08:00 GI: Bowel sounds present X 4 quads. Abd is soft X 4 quads. bp 08:13 Reassessment: PT DECLINED TO WAIT FOR SHOT TIME. PT D/C HOME AMBULATORY, DX WITH STD. bp Vital Signs: 07:44 BP 138 / 85; Pulse 77; Resp 16; Temp 98.4(TE); Pulse Ox 97% on R/A; Weight 97.52 kg; ss Height 5 ft. 9 in. (175.26 cm); Pain 6/10; 07:44 Body Mass Index 31.75 (97.52 kg, 175.26 cm) ED Course: 07:31 Patient arrived in ED. as 07:33 Dontrell Dunlap MD is Attending Physician. rn 07:44 Triage completed. ss 07:44 Arm band placed on right wrist. ss 07:45 Patient has correct armband on for positive identification. Bed in low position. Call bp light in reach. Side rails up X2. 07:57 Charlie Jonas, RN is Primary Nurse. bp 08:14 No provider procedures requiring assistance completed. Patient did not have IV access bp during this emergency room visit. Administered Medications: 08:00 Drug: Rocephin (cefTRIAXone) 250 mg Route: IM; Site: right gluteus; bp 08:13 Follow up: Response: No adverse reaction bp 08:00 Drug: Zithromax 1 grams Route: PO; bp 08:13 Follow up: Response: No adverse reaction bp Outcome: 07:49 Discharge ordered by . rn 08:14 Discharged to home ambulatory. bp 08:14 Condition: stable 08:14 Discharge instructions given to patient, Instructed on discharge instructions, follow up and referral plans. medication usage, Demonstrated understanding of instructions, follow-up care, medications, Prescriptions given X 1. 08:15 Patient left the ED. bp Signatures: Aminta Woodward Roman, MD MD rn Smirch, Shelby, RN RN ss Charlie Jonas RN RN bp
--- NOTE | 2019-08-04 07:49 | EDPHYS ---
Physician Documentation [facility] Name: Jimenez Patrick Age: 24 yrs Sex: Male : 1995 Arrival Date: 08/04/2019 Time: 07:31 Bed 6 Private MD: ED Physician Dontrell Dunlap HPI: 08/04 07:42 This 24 yrs old Male presents to ER via Unassigned with complaints of groin rn swelling/pain. 07:42 The patient presents with swelling, of the right inguinal area, tenderness. Onset: The rn symptoms/episode began/occurred 2 week(s) ago. Modifying factors: The symptoms are alleviated by nothing, the symptoms are aggravated by pressure. Severity of symptoms: At their worst the symptoms were mild, in the emergency department the symptoms are unchanged. The patient has not experienced similar symptoms in the past. Reports 2 weeks of swelling right groin, no recent procedure there or trauma, denies previous hernia, slowly getting larger and more painful, reports 4 weeks of "creamy" penile drainage. No fever. No rash.. Historical: - Allergies: 07:44 NKA; ss - Home Meds: 07:44 Humulin 70/30 100 unit/mL (70-30) Sub-Q susp [Active]; ss - PMHx: 07:44 Diabetes - IDDM; Chronic pancreatitis; ss - PSHx: 07:44 Cholecystectomy; pancreatic stent; ss - Immunization history:: Adult Immunizations unknown. - Social history:: Smoking status: Patient uses tobacco products, denies chronic smoking, but will smoke occasionally. - Family history:: not pertinent. - Ebola Screening: : Patient denies exposure to infectious person Patient denies travel to an Ebola-affected area in the 21 days before illness onset. - Hospitalizations: : No recent hospitalization is reported. ROS: 07:42 Constitutional: Negative for fever, chills, and weight loss, Cardiovascular: Negative rn for chest pain, palpitations, and edema, Respiratory: Negative for shortness of breath, cough, wheezing, and pleuritic chest pain, Abdomen/GI: Negative for abdominal pain, nausea, vomiting, diarrhea, and constipation, Back: Negative for injury and pain, : Negative for injury, bleeding MS/Extremity: Negative for injury and deformity, Skin: Negative for injury, rash, and discoloration, Neuro: Negative for headache, weakness, numbness, tingling, and seizure. Exam: 07:42 Constitutional: This is a well developed, well nourished patient who is awake, alert, rn and in no acute distress. Ambulatory to room without difficulty or assistance. ENT: MMM Cardiovascular: Regular rate and rhythm. No pulse deficits. Respiratory: No increased work of breathing, no retractions or nasal flaring. Abdomen/GI: Soft, non-tender, no guarding or rebound. Male : Normal genitalia with no discharge or lesions. + Bilateral inguinal lymphadenopathy, R>L with mild tenderness, mobile, no streaking. Skin: Warm, dry with normal turgor. Normal color with no rashes, no lesions, and no evidence of cellulitis. MS/ Extremity: Pulses equal, no cyanosis. Neurovascular intact. Full, normal range of motion. Equal circumference. Vital Signs: 07:44 BP 138 / 85; Pulse 77; Resp 16; Temp 98.4(TE); Pulse Ox 97% on R/A; Weight 97.52 kg; ss Height 5 ft. 9 in. (175.26 cm); Pain 6/10; 07:44 Body Mass Index 31.75 (97.52 kg, 175.26 cm) ss MDM: 07:34 Patient medically screened. rn 07:47 Differential diagnosis: STI, lymphadenopathy, hernia. Data reviewed: vital signs, rn nurses notes, and as a result, I will discharge patient. Counseling: I had a detailed discussion with the patient and/or guardian regarding: the historical points, exam findings, and any diagnostic results supporting the discharge/admit diagnosis, the need for outpatient follow up, to return to the emergency department if symptoms worsen or persist or if there are any questions or concerns that arise at home. Special discussion: I discussed with the patient/guardian in detail that at this point there is no indication for admission to the hospital. It is understood, however, that if the symptoms persist or worsen the patient needs to return immediately for re-evaluation. ED course: Will treat for suspected STI, given discharge, bilateral LAD, and exam consistent. No scrotal pain or tenderness. Return precautions given and understood. . Administered Medications: 08:00 Drug: Rocephin (cefTRIAXone) 250 mg Route: IM; Site: right gluteus; bp 08:13 Follow up: Response: No adverse reaction bp 08:00 Drug: Zithromax 1 grams Route: PO; bp 08:13 Follow up: Response: No adverse reaction bp Disposition: 08/04/19 07:49 Discharged to Home. Impression: Unspecified sexually transmitted disease. - Condition is Stable. - Discharge Instructions: Sexually Transmitted Disease, Lymphadenopathy. - Prescriptions for Doxycycline Monohydrate 100 mg Oral Tablet - take 1 tablet by ORAL route every 12 hours for 10 days; 20 tablet. - Medication Reconciliation Form, Thank You Letter, Antibiotic Education, Prescription Opioid Use form. - Follow up: Private Physician; When: As needed; Reason: Recheck today's complaints, Re-evaluation by your physician. - Problem is new. - Symptoms are unchanged. Signatures: Dontrell Dunlap MD MD rn Smirch, Shelby, RN RN Charlie Jonas RN RN bp Corrections: (The following items were deleted from the chart) 08:15 07:49 08/04/2019 07:49 Discharged to Home. Impression: Unspecified sexually transmitted bp disease. Condition is Stable. Forms are Medication Reconciliation Form, Thank You Letter, Antibiotic Education, Prescription Opioid Use. Follow up: Private Physician; When: As needed; Reason: Recheck today's complaints, Re-evaluation by your physician. Problem is new. Symptoms are unchanged. rn
[2019-08-04] MEDS ORDERED: CEFTRIAXONE 250 MG/VIAL ONE (08:02)
[2019-08-04] MEDS ORDERED: AZITHROMYCIN 250 MG TAB ONE (08:02)
[2019-08-04] MEDS ORDERED: WATER FOR INJ,STERILE 10 ML ONE (08:03)
[2019-08-04 12:12] VITALS: BP 138/85; TEMP 98.4; O2SAT 97
== END 2019-08-04 08:15 | disposition home or self-care (01) ==
LOC: ER 07:29
DX: A64 Unspecified sexually transmitted disease (principal); E11.9 Type 2 diabetes mellitus without complications; Z79.4 Long term (current) use of insulin; Z72.0 Tobacco use
CPT/HCPCS: 96372; 99283; J0696

== ENCOUNTER 2019-12-09 08:15 | Emergency (ER) | payer OTHER, SELFPAY ==
--- OUTSIDE RECORDS SUMMARY | 2019-12-09 08:18 | XMS REPORT ---
:1995 [facility] Address [address] [place] [address] [address] [place] [id number] Care Team Providers Name Role Phone Unavailable Unavailable Unavailable Problems This patient has no known problems. Allergies, Adverse Reactions, Alerts This patient has no known allergies or adverse reactions. Medications This patient has no known medications.
[2019-12-09] MEDS ORDERED: ONDANSETRON 4 MG/2 ML VIAL ONE (08:48)
[2019-12-09] MEDS ORDERED: NA CHLORIDE 0.9% 1,000 ML ONE (08:48)
[2019-12-09 08:52] LABS: Absolute Lymphocytes (CBC) 3.4 K/uL (0.7-4.9); Basophils % 1.3 % (0-1.3); Hematocrit 45.2 % (39.6-49.0); Lymphocytes % 39.6 % (15.3-44.8); MPV 9.6 fL (7.6-11.3); RBC Red Blood Cell Count 5.28 M/uL (4.33-5.43)
[2019-12-09] MEDS ORDERED: INSULIN -REGULAR HUMAN 50 UNIT/0.5 ML ML ONE (09:04)
[2019-12-09 09:08] LABS: BUN Blood Urea Nitrogen 11 mg/dL (7-18); Bicarbonate 25 mmol/L (21-32); Glucose Level 341 mg/dL (74-106); Lipase 45 U/L (73-393); Potassium 3.8 mmol/L (3.5-5.1); Sodium Level 137 mmol/L (136-145)
--- NOTE | 2019-12-09 09:14 | EDPHYS ---
Physician Documentation [facility] Name: Jimenez Patrick Age: 24 yrs Sex: Male : 1995 Arrival Date: 12/09/2019 Time: 08:17 Bed 13 Private MD: ED Physician Dontrell Dunlap HPI: 12/08 08:29 This 24 yrs old Male presents to ER via Unassigned with complaints of General rn Weakness, Nausea. 08:29 The patient presents to the emergency department with nausea. Onset: The rn symptoms/episode began/occurred yesterday. Possible causes: high blood sugar. The symptoms are aggravated by not taking insulin. Severity of symptoms: At their worst the symptoms were mild in the emergency department the symptoms are unchanged. The patient has experienced similar episodes in the past. The patient has not recently seen a physician. Stopped taking his insulin 1 week ago without good reason. No fever. + nausea. + polydipsia. . Historical: - Allergies: 08:45 NKA; iw - Home Meds: 08:45 Humulin 70/30 100 unit/mL (70-30) Sub-Q susp [Active]; iw - PMHx: 08:45 Chronic Pancreatitis; Diabetes - IDDM; Pancreatitis; iw - PSHx: 08:45 pancreatic stent; Cholecystectomy; iw - Immunization history:: Adult Immunizations not up to date. - Social history:: Smoking status: Patient reports the use of cigarette tobacco products, denies chronic smoking, but will smoke occasionally. - Family history:: not pertinent. - Hospitalizations: : No recent hospitalization is reported. ROS: 08:29 Constitutional: Negative for fever, chills, and weight loss, Eyes: Negative for injury, rn pain, redness, and discharge, Neck: Negative for injury, pain, and swelling, Cardiovascular: Negative for chest pain, palpitations, and edema, Respiratory: Negative for shortness of breath, cough, wheezing, and pleuritic chest pain, Abdomen/GI: Negative for abdominal pain, vomiting, and constipation, MS/Extremity: Negative for injury and deformity, Skin: Negative for injury, rash, and discoloration, Neuro: Negative for headache, numbness, tingling, and seizure. Exam: 08:29 Constitutional: This is a well developed, well nourished patient who is awake, alert, rn and in no acute distress. Head/Face: Normocephalic, atraumatic. ENT: dry MM Cardiovascular: Regular rate and rhythm. No pulse deficits. Respiratory: No increased work of breathing, no retractions or nasal flaring. Abdomen/GI: soft, mild epigastric tenderness Skin: Warm, dry MS/ Extremity: Pulses equal, no cyanosis. Neuro: Awake and alert, GCS 15, oriented to person, place, time, and situation. Cranial nerves II-XII grossly intact. Motor strength 5/5 in all extremities. Sensory grossly intact. Cerebellar exam normal. Normal gait. 09:09 ECG was reviewed by the Attending Physician. rn Vital Signs: 08:30 BP 123 / 80; Pulse 80; Resp 16 S; Temp 97.6; Pulse Ox 100% on R/A; iw 09:22 BP 105 / 69; Pulse 64; Resp 16; Pulse Ox 100% ; bp 09:47 BP 114 / 76; Pulse 60; Resp 16; Temp 97.5; Pulse Ox 100% ; bp MDM: 08:21 Patient medically screened. rn 09:12 Differential diagnosis: DKA, hyperglycemia, dehydration. Data reviewed: vital signs, rn nurses notes, lab test result(s), EKG, and as a result, I will discharge patient. Counseling: I had a detailed discussion with the patient and/or guardian regarding: the historical points, exam findings, and any diagnostic results supporting the discharge/admit diagnosis, lab results, the need for outpatient follow up, to return to the emergency department if symptoms worsen or persist or if there are any questions or concerns that arise at home. Special discussion: I discussed with the patient/guardian in detail that at this point there is no indication for admission to the hospital. It is understood, however, that if the symptoms persist or worsen the patient needs to return immediately for re-evaluation. ED course: Discussed need to take insulin, and just "not wanting to" is not a good excuse. . 12/08 08:29 Order name: CBC with Diff; Complete Time: 09:12 rn 12/08 08:29 Order name: Basic Metabolic Panel; Complete Time: 09:12 rn 12/08 08:29 Order name: Ketone, Serum; Complete Time: 09:12 rn 12/08 08:29 Order name: Lipase; Complete Time: 09:12 rn 12/08 08:46 Order name: Glucose, Ancillary Testing; Complete Time: 08:52 EDMS 12/08 08:29 Order name: IV Start; Complete Time: 08:46 rn 12/08 08:29 Order name: Glucose Level; Complete Time: 08:36 rn 12/08 08:29 Order name: EKG; Complete Time: 08:30 rn 12/08 08:29 Order name: EKG - Nurse/Tech; Complete Time: 08:52 rn EC:09 Rate is 65 beats/min. Rhythm is regular. QRS Hamilton is Normal. MA interval is normal. QRS rn interval is normal. QT interval is normal. No Q waves. T waves are Normal. No ST changes noted. Clinical impression: Normal ECG. Interpreted by me. Reviewed by me. Administered Medications: 08:45 Drug: NS 0.9% 1000 ml Route: IV; Rate: 1000 ml; Site: right antecubital; bp 09:56 Follow up: IV Status: Completed infusion; IV Intake: 1000ml bp 08:45 Drug: Zofran (Ondansetron) 4 mg Route: IVP; Site: right antecubital; bp 08:55 Follow up: Response: No adverse reaction bp 09:05 Drug: Insulin Regular Human 10 units {Co-Signature: jyothi (Renee Holly RN).} Route: bp Sub-Q; Site: right upper arm; 09:56 Follow up: Response: No adverse reaction bp Disposition: 12/09/19 09:13 Discharged to Home. Impression: Hyperglycemia, unspecified, Dehydration. - Condition is Stable. - Discharge Instructions: Dehydration, Adult, Hyperglycemia, Blood Glucose Monitoring, Adult. - Medication Reconciliation Form, Thank You Letter, Antibiotic Education, Prescription Opioid Use, Work release form form. - Follow up: Private Physician; When: As needed; Reason: Recheck today's complaints, Re-evaluation by your physician. - Problem is new. - Symptoms have improved. Signatures: Dispatcher [employer] Renee Bradley, Dontrell Samuel RN, MD MD rn Peltier, Brian, RN RN bp Irene Williams RN iw Corrections: (The following items were deleted from the chart) 09:57 09:13 12/09/2019 09:13 Discharged to Home. Impression: Hyperglycemia, unspecified; bp Dehydration. Condition is Stable. Forms are Medication Reconciliation Form, Thank You Letter, Antibiotic Education, Prescription Opioid Use. Follow up: Private Physician; When: As needed; Reason: Recheck today's complaints, Re-evaluation by your physician. Problem is new. Symptoms have improved. rn
--- NOTE | 2019-12-09 09:14 | ER ---
Nurse's Notes [facility] Name: Jimenez Patrick Age: 24 yrs Sex: Male : 1995 Arrival Date: 12/09/2019 Time: 08:17 Bed 13 Private MD: Diagnosis: Hyperglycemia, unspecified;Dehydration Presentation: 12/08 08:30 Chief complaint: Patient states: stopped taking his insulin one week ago, states he iw just didn't feel like taking it, has done this in the past, has not checked his blood sugar either, has felt weak, thirsty and has a dry mouth. Coronavirus screen: Proceed with normal triage. Ebola Screen: Patient negative for fever greater than or equal to 101.5 degrees Fahrenheit, and additional compatible Ebola Virus Disease symptoms Patient denies exposure to infectious person. Patient denies travel to an Ebola-affected area in the 21 days before illness onset. No symptoms or risks identified at this time. Initial Sepsis Screen: Does the patient meet any 2 criteria? No. Patient's initial sepsis screen is negative. Does the patient have a suspected source of infection? No. Patient's initial sepsis screen is negative. Risk Assessment: Do you want to hurt yourself or someone else? Patient reports no desire to harm self or others. Onset of symptoms was December 06, 2019. 08:30 Method Of Arrival: Ambulatory iw 08:30 Acuity: MOSES 3 iw Triage Assessment: 08:30 General: Appears in no apparent distress. comfortable, Behavior is calm, cooperative, bp appropriate for age. Pain: Denies pain. EENT: No deficits noted. Neuro: No deficits noted. Cardiovascular: No deficits noted. Respiratory: No deficits noted. GI: Reports nausea. : No signs and/or symptoms were reported regarding the genitourinary system. Derm: No deficits noted. Musculoskeletal: No deficits noted. Historical: - Allergies: 08:45 NKA; iw - Home Meds: 08:45 Humulin 70/30 100 unit/mL (70-30) Sub-Q susp [Active]; iw - PMHx: 08:45 Chronic Pancreatitis; Diabetes - IDDM; Pancreatitis; iw - PSHx: 08:45 pancreatic stent; Cholecystectomy; iw - Immunization history:: Adult Immunizations not up to date. - Social history:: Smoking status: Patient reports the use of cigarette tobacco products, denies chronic smoking, but will smoke occasionally. - Family history:: not pertinent. - Hospitalizations: : No recent hospitalization is reported. Screenin:30 Abuse screen: Denies threats or abuse. Denies injuries from another. Nutritional bp screening: No deficits noted. Tuberculosis screening: No symptoms or risk factors identified. Fall Risk None identified. Assessment: 08:30 General: SEE TRIAGE NOTE. GI: Abdomen is non-distended. bp 09:22 Reassessment: D/C ON HOLD FOR IVF COMPLETION. bp 09:54 Reassessment: IVF COMPLETE. PT D/C HOME AMBULATORY, DX WITH HYPERGLYCEMIA. bp Vital Signs: 08:30 BP 123 / 80; Pulse 80; Resp 16 S; Temp 97.6; Pulse Ox 100% on R/A; iw 09:22 BP 105 / 69; Pulse 64; Resp 16; Pulse Ox 100% ; bp 09:47 BP 114 / 76; Pulse 60; Resp 16; Temp 97.5; Pulse Ox 100% ; bp ED Course: 08:17 Patient arrived in ED. ag5 08:21 Dontrell Dunlap MD is Attending Physician. rn 08:24 Charlie Jonas RN is Primary Nurse. bp 08:30 Patient has correct armband on for positive identification. Bed in low position. Call bp light in reach. Side rails up X2. 08:40 Inserted saline lock: 20 gauge in right antecubital area, using aseptic technique. bp Blood collected. 08:45 Triage completed. iw 08:45 Arm band placed on. iw 09:55 No provider procedures requiring assistance completed. IV discontinued, intact, bp bleeding controlled, No redness/swelling at site. Pressure dressing applied. Administered Medications: 08:45 Drug: NS 0.9% 1000 ml Route: IV; Rate: 1000 ml; Site: right antecubital; bp 09:56 Follow up: IV Status: Completed infusion; IV Intake: 1000ml bp 08:45 Drug: Zofran (Ondansetron) 4 mg Route: IVP; Site: right antecubital; bp 08:55 Follow up: Response: No adverse reaction bp 09:05 Drug: Insulin Regular Human 10 units {Co-Signature: iw (Renee Holly RN).} Route: bp Sub-Q; Site: right upper arm; 09:56 Follow up: Response: No adverse reaction bp Intake: 09:56 IV: 1000ml; Total: 1000ml. bp Outcome: 09:13 Discharge ordered by . rn 09:55 Discharged to home ambulatory. bp 09:55 Condition: stable 09:55 Discharge instructions given to patient, Instructed on discharge instructions, follow up and referral plans. Demonstrated understanding of instructions, follow-up care. 09:57 Patient left the ED. bp Signatures: Renee Holyl RN RN iw Dontrell Dunlap MD MD rn Peltier, Brian, RN RN bp Noé Matthew ag5 Renee Holly RN iw
[2019-12-09 10:17] VITALS: O2SAT 100
[2019-12-09 10:31] VITALS: BP 114/76; TEMP 97.5
--- NOTE | 2019-12-10 16:51 | EKG ---
Test Date: 2019-12-09 Test Time: 08:52:43 Data Processing Clerk: VIN MEASUREMENT RESULTS: Intervals: Rate: 65 NC: 152 QRSD: 102 QT: 388 QTc: 403 [place]ton: P: 20 NC: 152 QRS: 46 T: 41 INTERPRETIVE STATEMENTS: Normal sinus rhythm Normal ECG Compared to ECG 06/10/2015 22:47:27 No significant changes Electronically Signed On 12-10-19 16:48:34 CDT by Jose Jesus
== END 2019-12-09 09:57 | disposition home or self-care (01) ==
LOC: ER 08:15
DX: E86.0 Dehydration (principal); E11.65 Type 2 diabetes mellitus with hyperglycemia; Z79.4 Long term (current) use of insulin; F17.210 Nicotine dependence, cigarettes, uncomplicated
CPT/HCPCS: 36415; 80048; 82010; 82947; 83690; 85025; 93005; 96361; 96372; 96374; 99283; J2405; J7030

== ENCOUNTER 2020-01-25 22:12 | Emergency (ER) | payer SELFPAY ==
--- OUTSIDE RECORDS SUMMARY | 2020-01-25 22:14 | XMS REPORT ---
:1995 Author Organization [facility] t Address [address] [place] [address] [address] [place] [id number] Care Team Providers Name Role Phone Unavailable Unavailable Unavailable Problems This patient has no known problems. Allergies, Adverse Reactions, Alerts This patient has no known allergies or adverse reactions. Medications This patient has no known medications. Procedures This patient has no known procedures. Results This patient has no known results.
[2020-01-25] MEDS ORDERED: NA CHLORIDE 0.9% 1,000 ML ONE (23:25)
[2020-01-25] MEDS ORDERED: MORPHINE 4 MG/ML SYR ONE (23:25)
[2020-01-25] MEDS ORDERED: ONDANSETRON 4 MG/2 ML VIAL ONE (23:25)
[2020-01-25 23:41] LABS: Absolute Lymphocytes (CBC) 3.4 K/uL (0.7-4.9); Basophils % 1.1 % (0-1.3); Hematocrit 45.3 % (39.6-49.0); Lymphocytes % 28.3 % (15.3-44.8); MPV 9.9 fL (7.6-11.3); RBC Red Blood Cell Count 5.32 M/uL (4.33-5.43)
[2020-01-25 23:48] LABS: ALT/SGPT 41 U/L (12-78); AST/SGOT 19 U/L (15-37); Alkaline Phosphatase 126 U/L (45-117); BUN Blood Urea Nitrogen 10 mg/dL (7-18); Bicarbonate 27 mmol/L (21-32); Bilirubin Direct < 0.1 mg/dL (0-0.2); Bilirubin Total 0.5 mg/dL (0.2-1.0); Glucose Level 318 mg/dL (74-106); Lipase 99 U/L (73-393); Potassium 3.7 mmol/L (3.5-5.1); Protein, Total 7.6 g/dL (6.4-8.2); Sodium Level 137 mmol/L (136-145)
--- NOTE | 2020-01-26 00:10 | EDPHYS ---
Physician Documentation [facility] Name: Jimenez Patrick Age: 24 yrs Sex: Male : 1995 Arrival Date: 01/25/2020 Time: 22:15 Bed 7 Private MD: ARMIDA Physician Luis Laura HPI: 01/24 23:26 This 24 yrs old Male presents to ER via Ambulatory with complaints of jr8 Abdominal Pain. 23:26 The patient presents with abdominal pain in the upper abdomen. Onset: The jr8 symptoms/episode began/occurred acutely, today. The symptoms do not radiate. Associated signs and symptoms: Pertinent positives: nausea. The symptoms are described as stabbing. Modifying factors: The symptoms are alleviated by nothing, the symptoms are aggravated by food. Severity of pain: At its worst the pain was moderate in the emergency department the pain is unchanged. The patient has experienced similar episodes in the past, several times. The patient has not recently seen a physician. Patient with history of chronic pancreatitis. Stated that he feels that he is having a flare up again. Pain same as he always has. Denies fevers, vomiting, diarrhea. Historical: - Allergies: 22:33 NKA; lp1 - Home Meds: 22:33 Humulin 70/30 100 unit/mL (70-30) Sub-Q susp [Active]; lp1 - PMHx: 22:33 Chronic Pancreatitis; Diabetes - IDDM; lp1 - PSHx: 22:33 Cholecystectomy; lp1 22:33 stents in pancreas; lp1 - Immunization history:: Adult Immunizations up to date. - Social history:: Smoking status: Patient reports the use of cigarette tobacco products, denies chronic smoking, but will smoke occasionally. ROS: 23:26 Eyes: Negative for injury, pain, redness, and discharge, ENT: Negative for injury, jr8 pain, and discharge, Neck: Negative for injury, pain, and swelling, Cardiovascular: Negative for chest pain, palpitations, and edema, Respiratory: Negative for shortness of breath, cough, wheezing, and pleuritic chest pain, Back: Negative for injury and pain, MS/Extremity: Negative for injury and deformity, Skin: Negative for injury, rash, and discoloration, Neuro: Negative for headache, weakness, numbness, tingling, and seizure. 23:26 Abdomen/GI: Positive for abdominal pain, nausea, Negative for vomiting, diarrhea, constipation, abdominal cramps, abdominal distension, anorexia, dysphagia, hematemesis, black/tarry stool, rectal pain, rectal bleeding, bowel incontinence, flatulence. Exam: 23:26 Eyes: Pupils equal round and reactive to light, extra-ocular motions intact. Lids and jr8 lashes normal. Conjunctiva and sclera are non-icteric and not injected. Cornea within normal limits. Periorbital areas with no swelling, redness, or edema. ENT: Nares patent. No nasal discharge, no septal abnormalities noted. Tympanic membranes are normal and external auditory canals are clear. Oropharynx with no redness, swelling, or masses, exudates, or evidence of obstruction, uvula midline. Mucous membranes moist. Neck: Trachea midline, no thyromegaly or masses palpated, and no cervical lymphadenopathy. Supple, full range of motion without nuchal rigidity, or vertebral point tenderness. No Meningismus. Cardiovascular: Regular rate and rhythm with a normal S1 and S2. No gallops, murmurs, or rubs. Normal PMI, no JVD. No pulse deficits. Respiratory: Lungs have equal breath sounds bilaterally, clear to auscultation and percussion. No rales, rhonchi or wheezes noted. No increased work of breathing, no retractions or nasal flaring. Back: No spinal tenderness. No costovertebral tenderness. Full range of motion. Skin: Warm, dry with normal turgor. Normal color with no rashes, no lesions, and no evidence of cellulitis. MS/ Extremity: Pulses equal, no cyanosis. Neurovascular intact. Full, normal range of motion. Neuro: Awake and alert, GCS 15, oriented to person, place, time, and situation. Cranial nerves II-XII grossly intact. Motor strength 5/5 in all extremities. Sensory grossly intact. Cerebellar exam normal. Normal gait. 23:26 Abdomen/GI: Inspection: obese Bowel sounds: active, all quadrants, Palpation: soft, in all quadrants, mild abdominal tenderness, in the epigastric area, right upper quadrant and left upper quadrant, mass, is not appreciated, rebound tenderness, is not appreciated, voluntary guarding, is not appreciated, involuntary guarding, is not appreciated, no appreciated organomegaly, Indicators: McBurney's point is not tender, Locke's sign is negative, Rovsing's sign is negative, Liver: tenderness, is not appreciated. Vital Signs: 22:34 BP 140 / 100; Pulse 110; Resp 18; Temp 98.2(O); Pulse Ox 98% on R/A; Weight 99.79 kg lp1 (R); Height 5 ft. 9 in. (175.26 cm); Pain 7/10; 01/25 00:15 BP 121 / 70; Pulse 95; Resp 16; Pulse Ox 99% ; rr5 01/24 22:34 Body Mass Index 32.49 (99.79 kg, 175.26 cm) lp1 MDM: 01/24 23:17 Patient medically screened. [facility] 01/25 00:08 Data reviewed: vital signs, nurses notes, lab test result(s). Data interpreted: Pulse jr8 oximetry: on room air is 98 %. Interpretation: normal. Counseling: I had a detailed discussion with the patient and/or guardian regarding: the historical points, exam findings, and any diagnostic results supporting the discharge/admit diagnosis, lab results, the need for outpatient follow up, a family practitioner, a chemical unit operator, to return to the emergency department if symptoms worsen or persist or if there are any questions or concerns that arise at home. Response to treatment: the patient's symptoms have markedly improved after treatment, patient is well hydrated. and as a result, I will discharge patient. 00:08 Special discussion: Based on the patient's Hx, exam, and Dx evaluation, there is no jr8 indication for emergent surgery or inpatient Tx. It is understood by the patient/guardian that if the Sx's persist or worsen they need to return immediately for re-evaluation. 01/24 23:00 Order name: Basic Metabolic Panel; Complete Time: 23:52 rv 01/24 23:00 Order name: CBC with Diff; Complete Time: 23:49 rv 01/24 23:00 Order name: Hepatic Function; Complete Time: 23:52 rv 01/24 23:00 Order name: Lipase; Complete Time: 23:52 rv 01/24 23:00 Order name: IV Saline Lock; Complete Time: 23:05 rv 01/24 23:00 Order name: Labs collected and sent; Complete Time: 23:05 rv 01/24 23:15 Order name: Glucose Level; Complete Time: 23:59 jr8 Administered Medications: 01/24 23:20 Drug: NS 0.9% 1000 ml Route: IV; Rate: 1000 ml; Site: right forearm; rv 01/25 00:10 Follow up: Response: No adverse reaction; IV Status: Completed infusion; IV Intake: rr5 1000ml 01/24 23:20 Drug: morphine 4 mg {Note: rass 0.} Route: IVP; Site: right forearm; rv 01/25 00:15 Follow up: Response: No adverse reaction; RASS: Alert and Calm (0) rr5 01/24 23:20 Drug: Zofran (Ondansetron) 4 mg Route: IVP; Site: right forearm; rv 01/25 00:15 Follow up: Response: No adverse reaction rr5 Disposition: 07:19 Co-signature as Attending Physician, Luis Laura MD I agree with the assessment and salbador plan of care. Disposition: 01/26/20 00:09 Discharged to Home. Impression: Other chronic pancreatitis. - Condition is Stable. - Discharge Instructions: Chronic Pancreatitis. - Medication Reconciliation Form, Thank You Letter, Antibiotic Education, Prescription Opioid Use, Work release form form. - Follow up: Private Physician; When: 5 - 6 days; Reason: Recheck today's complaints, Continuance of care, Re-evaluation by your physician. - Problem is new. - Symptoms have improved. Signatures: Dispatcher [employer] EDLuis Gonzales MD MD cha Pena, Laura, RN RN lp1 Jose Pugh PA PA jr8 Jairon Dennis RN RN rv Fabian Jordan RN RN rr5 Corrections: (The following items were deleted from the chart) 00:28 00:09 01/26/2020 00:09 Discharged to Home. Impression: Other chronic pancreatitis. rr5 Condition is Stable. Forms are Medication Reconciliation Form, Thank You Letter, Antibiotic Education, Prescription Opioid Use. Follow up: Private Physician; When: 5 - 6 days; Reason: Recheck today's complaints, Continuance of care, Re-evaluation by your physician. Problem is new. Symptoms have improved. jr8
--- NOTE | 2020-01-26 00:10 | ER ---
Nurse's Notes [facility] Name: Jimenez Patrick Age: 24 yrs Sex: Male : 1995 Arrival Date: 01/25/2020 Time: 22:15 Bed 7 Private MD: Diagnosis: Other chronic pancreatitis Presentation: 01/24 22:31 Chief complaint: Patient states: "I'm having a flare up, I have chronic pancreatitis"; lp1 States pain began yesterday with nausea; Denies fever. Coronavirus screen: Proceed with normal triage. Patient denies a cough. Patient denies shortness of breath or difficulty breathing. Patient denies measured and/or subjective temperature greater than 100.4F prior to today's visit. Patient denies travel on a cruise ship or to a country the [facility] currently lists as an affected area. Ebola Screen: No symptoms or risks identified at this time. Risk Assessment: Do you want to hurt yourself or someone else? Patient reports no desire to harm self or others. Onset of symptoms was January 24, 2020. 22:31 Method Of Arrival: Ambulatory lp1 22:31 Acuity: MOSES 3 lp1 22:34 Initial Sepsis Screen: Does the patient meet any 2 criteria? HR > 90 bpm. Does the lp1 patient have a suspected source of infection? No. Patient's initial sepsis screen is negative. Historical: - Allergies: 22:33 NKA; lp1 - Home Meds: 22:33 Humulin 70/30 100 unit/mL (70-30) Sub-Q susp [Active]; lp1 - PMHx: 22:33 Chronic Pancreatitis; Diabetes - IDDM; lp1 - PSHx: 22:33 Cholecystectomy; lp1 22:33 stents in pancreas; lp1 - Immunization history:: Adult Immunizations up to date. - Social history:: Smoking status: Patient reports the use of cigarette tobacco products, denies chronic smoking, but will smoke occasionally. Screenin:33 Abuse screen: Denies threats or abuse. Denies injuries from another. Nutritional lp1 screening: No deficits noted. Tuberculosis screening: No symptoms or risk factors identified. Fall Risk None identified. Assessment: 23:05 General: Appears comfortable, Behavior is calm, cooperative. Pain: Complains of pain in rv abdomen Pain currently is 7 out of 10 on a pain scale. Neuro: Level of Consciousness is awake, alert, obeys commands, Oriented to person, place, time, situation. Cardiovascular: Patient's skin is warm and dry. Respiratory: Airway is patent Breath sounds are clear bilaterally. GI: Abdomen is flat, non-distended, Bowel sounds present X 4 quads. Abd is soft and non tender X 4 quads. Reports upper abdominal pain, nausea. Derm: Skin is healthy with good turgor. 01/25 00:15 Reassessment: Patient appears in no apparent distress at this time. Patient is alert, rr5 oriented x 3, equal unlabored respirations, skin warm/dry/pink. discharge instruction given and explained without complaints made. Vital Signs: 01/24 22:34 BP 140 / 100; Pulse 110; Resp 18; Temp 98.2(O); Pulse Ox 98% on R/A; Weight 99.79 kg lp1 (R); Height 5 ft. 9 in. (175.26 cm); Pain 7/10; 01/25 00:15 BP 121 / 70; Pulse 95; Resp 16; Pulse Ox 99% ; rr5 01/24 22:34 Body Mass Index 32.49 (99.79 kg, 175.26 cm) lp1 ED Course: 01/24 22:15 Patient arrived in ED. cl3 22:32 Triage completed. lp1 22:32 Arm band placed on right wrist. lp1 22:54 Jairon Dennis, RN is Primary Nurse. rv 23:05 Initial lab(s) drawn, by mn, sent to lab. Inserted saline lock: 18 gauge in right rv forearm, using aseptic technique. Blood collected. 23:06 Patient has correct armband on for positive identification. Pulse ox on. NIBP on. rv 23:14 Jose Pugh PA is PHCP. jr8 23:14 Luis Laura MD is Attending Physician. jr8 01/25 00:15 No provider procedures requiring assistance completed. IV discontinued, intact, rr5 bleeding controlled, No redness/swelling at site. Pressure dressing applied. Administered Medications: 01/24 23:20 Drug: NS 0.9% 1000 ml Route: IV; Rate: 1000 ml; Site: right forearm; rv 01/25 00:10 Follow up: Response: No adverse reaction; IV Status: Completed infusion; IV Intake: rr5 1000ml 01/24 23:20 Drug: morphine 4 mg {Note: rass 0.} Route: IVP; Site: right forearm; rv 01/25 00:15 Follow up: Response: No adverse reaction; RASS: Alert and Calm (0) rr5 01/24 23:20 Drug: Zofran (Ondansetron) 4 mg Route: IVP; Site: right forearm; rv 01/25 00:15 Follow up: Response: No adverse reaction rr5 Intake: 00:10 IV: 1000ml; Total: 1000ml. rr5 Outcome: 00:09 Discharge ordered by MD. perdomo 00:15 Discharged to home ambulatory. rr5 00:15 Condition: stable 00:15 Discharge instructions given to patient, Instructed on discharge instructions, follow up and referral plans. Demonstrated understanding of instructions, follow-up care. 00:28 Patient left the ED. rr5 Signatures: Zeynep Patrick RN RN lp1 Jose Pugh PA PA jr8 Jairon Dennis RN RN rv Fabian Jordan RN RN rr5 Mckenna Gregory cl3
[2020-01-26 01:08] VITALS: TEMP 98.2
[2020-01-26 01:10] VITALS: BP 121/70; O2SAT 99
== END 2020-01-26 00:28 | disposition home or self-care (01) ==
LOC: ER 22:12
DX: K86.1 Other chronic pancreatitis (principal); E11.9 Type 2 diabetes mellitus without complications; Z79.4 Long term (current) use of insulin; F17.210 Nicotine dependence, cigarettes, uncomplicated
CPT/HCPCS: 36415; 80048; 80076; 83690; 85025; 96361; 96374; 96375; 99284; J2405; J7030

== ENCOUNTER 2020-01-27 08:05 | Emergency (ER) | payer SELFPAY ==
--- OUTSIDE RECORDS SUMMARY | 2020-01-27 08:08 | XMS REPORT ---
:1995 Author Organization [facility] t Address [address] [place] [address] [address] [place] [id number] Care Team Providers Name Role Phone Unavailable Unavailable Unavailable Problems This patient has no known problems. Allergies, Adverse Reactions, Alerts This patient has no known allergies or adverse reactions. Medications This patient has no known medications. Procedures This patient has no known procedures. Results This patient has no known results.
[2020-01-27] MEDS ORDERED: NA CHLORIDE 0.9% 1,000 ML ONE (08:28)
[2020-01-27] MEDS ORDERED: MORPHINE 4 MG/ML SYR ONE (08:28)
[2020-01-27] MEDS ORDERED: ONDANSETRON 4 MG/2 ML VIAL ONE (08:29)
[2020-01-27 08:47] LABS: Absolute Lymphocytes (CBC) 3.1 K/uL (0.7-4.9); Basophils % 0.5 % (0-1.3); Hematocrit 44.1 % (39.6-49.0); Lymphocytes % 36.2 % (15.3-44.8); MPV 9.7 fL (7.6-11.3); RBC Red Blood Cell Count 5.13 M/uL (4.33-5.43)
[2020-01-27 09:05] LABS: ALT/SGPT 40 U/L (12-78); AST/SGOT 22 U/L (15-37); Albumin 3.5 g/dL (3.4-5.0); Alkaline Phosphatase 133 U/L (45-117); BUN Blood Urea Nitrogen 9 mg/dL (7-18); Bicarbonate 27 mmol/L (21-32); Bilirubin Direct < 0.1 mg/dL (0-0.2); Bilirubin Total 0.4 mg/dL (0.2-1.0); Glucose Level 290 mg/dL (74-106); Lipase 60 U/L (73-393); Potassium 3.8 mmol/L (3.5-5.1); Sodium Level 139 mmol/L (136-145)
--- NOTE | 2020-01-27 09:37 | EDPHYS ---
Physician Documentation [facility] Name: Jimenez Patrick Age: 24 yrs Sex: Male : 1995 Arrival Date: 01/27/2020 Time: 08:06 Bed 5 Private MD: ED Physician Herve Mejia HPI: 01/26 08:18 This 24 yrs old Male presents to ER via Unassigned with complaints of pm1 Abdominal Pain. 08:18 The patient presents with abdominal pain in the upper abdomen. Onset: The pm1 symptoms/episode began/occurred 2 day(s) ago. The symptoms do not radiate. Associated signs and symptoms: Pertinent positives: nausea, Pertinent negatives: chest pain, diarrhea, fever, shortness of breath, vomiting. The symptoms are described as stabbing. Modifying factors: the symptoms are aggravated by food, Has been eating subway sandwiches for the past two days. Severity of pain: At its worst the pain was moderate in the emergency department the pain is unchanged. The patient has experienced similar episodes in the past, multiple times, and the symptoms today are exactly the same, Says pain is the same as his typical chronic pancreatitis flare ups. The patient has been recently seen at the [facility] Emergency Department, for similar complaints labs were performed. Historical: - Allergies: 08:22 NKA; hb - Home Meds: 08:22 Humulin 70/30 100 unit/mL (70-30) Sub-Q susp [Active]; hb - PMHx: 08:22 Chronic Pancreatitis; Diabetes - IDDM; hb - PSHx: 08:22 Cholecystectomy; stents in pancreas; hb - Immunization history:: Adult Immunizations up to date. - Social history:: Smoking status: Patient reports the use of cigarette tobacco products, denies chronic smoking, but will smoke occasionally. ROS: 08:29 Constitutional: Negative for fever, chills, and weight loss, Cardiovascular: Negative pm1 for chest pain, palpitations, and edema, Respiratory: Negative for shortness of breath, cough, wheezing, and pleuritic chest pain. 08:29 Back: Negative for injury and pain, : Negative for injury, bleeding, discharge, and swelling, MS/Extremity: Negative for injury and deformity, Skin: Negative for injury, rash, and discoloration, Neuro: Negative for headache, weakness, numbness, tingling, and seizure. 08:29 Abdomen/GI: Positive for abdominal pain, nausea, Negative for vomiting, diarrhea, constipation. Exam: 08:29 Constitutional: This is a well developed, well nourished patient who is awake, alert, pm1 and in no acute distress. Head/Face: Normocephalic, atraumatic. Chest/axilla: Normal chest wall appearance and motion. Nontender with no deformity. No lesions are appreciated. 08:29 Back: No spinal tenderness. No costovertebral tenderness. Full range of motion. Skin: Warm, dry with normal turgor. Normal color with no rashes, no lesions, and no evidence of cellulitis. MS/ Extremity: Pulses equal, no cyanosis. Neurovascular intact. Full, normal range of motion. 08:29 Cardiovascular: Exam negative for acute changes, Rate: normal, Rhythm: regular, Pulses: no pulse deficits are appreciated. 08:29 Respiratory: Exam negative for acute changes, respiratory distress, shortness of breath. 08:29 Abdomen/GI: Exam negative for acute changes, Inspection: abdomen appears normal, Palpation: abdomen is soft and non-tender, in all quadrants, mass, is not appreciated, rebound tenderness, is not appreciated, Indicators: McBurney's point is not tender, Locke's sign is negative, Rovsing's sign is negative. 08:29 Neuro: Exam negative for acute changes, Orientation: is normal, Mentation: is normal, Motor: moves all fours. 09:34 Abdomen/GI: Exam negative for acute changes, Inspection: abdomen appears normal, pm1 Palpation: abdomen is soft and non-tender, in all quadrants, mass, is not appreciated, rebound tenderness, is not appreciated. Vital Signs: 08:10 BP 142 / 92; Pulse 88; Resp 16; Temp 97.8; Pulse Ox 99% on R/A; Weight 99.79 kg; Height hb 5 ft. 9 in. (175.26 cm); Pain 7/10; 09:13 BP 129 / 86; Pulse 79; Resp 16; Pulse Ox 98% ; sv 08:10 Body Mass Index 32.49 (99.79 kg, 175.26 cm) hb MDM: 08:09 Patient medically screened. pm1 09:34 Data reviewed: vital signs. Data interpreted: Pulse oximetry: on room air is 98 %. pm1 Interpretation: normal. 09:35 Counseling: I had a detailed discussion with the patient and/or guardian regarding: the pm1 historical points, exam findings, and any diagnostic results supporting the discharge/admit diagnosis, lab results, the need for outpatient follow up, a family practitioner, a flight tower dispatcher, to return to the emergency department if symptoms worsen or persist or if there are any questions or concerns that arise at home. 09:35 Special discussion: Based on the patient's Hx, exam, and Dx evaluation, there is no pm1 indication for emergent surgery or inpatient Tx. It is understood by the patient/guardian that if the Sx's persist or worsen they need to return immediately for re-evaluation. 09:40 ED course: THERAPEUTIC ASSISTANT aware reviewed. pm1 01/26 08:14 Order name: Basic Metabolic Panel; Complete Time: 09:10 pm01/26 08:14 Order name: CBC with Diff; Complete Time: 09:10 pm01/26 08:14 Order name: Hepatic Function; Complete Time: 09:10 pm01/26 08:14 Order name: Lipase; Complete Time: 09:10 pm01/26 08:14 Order name: IV Saline Lock; Complete Time: 08:41 pm01/26 08:14 Order name: Labs collected and sent; Complete Time: 08:41 pm1 Administered Medications: 08:35 Drug: NS 0.9% 1000 ml Route: IV; Rate: 1000 ml; Site: right forearm; em 08:35 Drug: Zofran (Ondansetron) 4 mg Route: IVP; Site: right forearm; em 08:37 Drug: morphine 4 mg Route: IVP; Site: right forearm; em Disposition: 01/27/20 09:36 Discharged to Home. Impression: Other chronic pancreatitis. - Condition is Stable. - Discharge Instructions: Chronic Pancreatitis. - Prescriptions for Tylenol- Codeine #3 300-30 mg Oral Tablet - take 2 tablets by ORAL route every 6 hours As needed; 20 tablet. Zofran 4 mg Oral Tablet - take 1 tablet by ORAL route every 12 hours As needed; 20 tablet. - Medication Reconciliation Form, Thank You Letter, Antibiotic Education, Prescription Opioid Use form. - Follow up: Emergency Department; When: As needed; Reason: Worsening of condition. Follow up: Char Levi MD; When: 2 - 3 days; Reason: Recheck today's complaints, Continuance of care, Re-evaluation by your physician. - Problem is new. - Symptoms have improved. Signatures: Dispatcher [employer] Brittani Bonilla, RN Jules Stein RN Singh Fernando, ACCESS ASSOC ACCESS ASSOC pm1 Nivia Langford RN RN Corrections: (The following items were deleted from the chart) 09:51 09:36 01/27/2020 09:36 Discharged to Home. Impression: Other chronic pancreatitis. sv Condition is Stable. Forms are Medication Reconciliation Form, Thank You Letter, Antibiotic Education, Prescription Opioid Use. Follow up: Emergency Department; When: As needed; Reason: Worsening of condition. Follow up: Char Levi; When: 2 - 3 days; Reason: Recheck today's complaints, Continuance of care, Re-evaluation by your physician. Problem is new. Symptoms have improved. pm1
--- NOTE | 2020-01-27 09:37 | ER ---
Nurse's Notes [facility] Name: Jimenez Patrick Age: 24 yrs Sex: Male : 1995 Arrival Date: 01/27/2020 Time: 08:06 Bed 5 Private MD: Diagnosis: Other chronic pancreatitis Presentation: 01/26 08:10 Chief complaint: Patient states: RUQ pain x 2 days. Coronavirus screen: grandmother hb recently tested for COVID, test results pending, mask placed on patient, instructed to keep mask on during ED visit, pt verbalized understanding of instructions. Ebola Screen: No symptoms or risks identified at this time. Initial Sepsis Screen: Does the patient meet any 2 criteria? No. Patient's initial sepsis screen is negative. Does the patient have a suspected source of infection? No. Patient's initial sepsis screen is negative. Risk Assessment: Do you want to hurt yourself or someone else? Patient reports no desire to harm self or others. Onset of symptoms was January 26, 2020. 08:10 Method Of Arrival: Ambulatory hb 08:10 Acuity: MOSES 3 hb Historical: - Allergies: 08:22 NKA; hb - Home Meds: 08:22 Humulin 70/30 100 unit/mL (70-30) Sub-Q susp [Active]; hb - PMHx: 08:22 Chronic Pancreatitis; Diabetes - IDDM; hb - PSHx: 08:22 Cholecystectomy; stents in pancreas; hb - Immunization history:: Adult Immunizations up to date. - Social history:: Smoking status: Patient reports the use of cigarette tobacco products, denies chronic smoking, but will smoke occasionally. Screenin:25 Abuse screen: Denies threats or abuse. Nutritional screening: No deficits noted. em Tuberculosis screening: No symptoms or risk factors identified. Fall Risk None identified. Assessment: 09:11 Reassessment: Patient appears in no apparent distress at this time. Patient and/or em family updated on plan of care and expected duration. Pain level reassessed. Patient is alert, oriented x 3, equal unlabored respirations, skin warm/dry/pink. Patient states feeling better. Patient states symptoms have improved. 09:51 Reassessment: Patient appears in no apparent distress at this time. Patient and/or sv family updated on plan of care and expected duration. Pain level reassessed. Patient is alert, oriented x 3, equal unlabored respirations, skin warm/dry/pink. Patient states feeling better. Patient states symptoms have improved. Vital Signs: 08:10 BP 142 / 92; Pulse 88; Resp 16; Temp 97.8; Pulse Ox 99% on R/A; Weight 99.79 kg; Height hb 5 ft. 9 in. (175.26 cm); Pain 7/10; 09:13 BP 129 / 86; Pulse 79; Resp 16; Pulse Ox 98% ; sv 08:10 Body Mass Index 32.49 (99.79 kg, 175.26 cm) hb ED Course: 08:06 Patient arrived in ED. am2 08:08 [facility] pm1 08:08 Herve Mejia MD is Attending Physician. pm1 08:11 Jules Lee, RN is Primary Nurse. em 08:21 Triage completed. hb 08:22 Arm band placed on. hb 08:30 Patient has correct armband on for positive identification. Bed in low position. Call em light in reach. Pulse ox on. NIBP on. 09:36 Char Levi MD is Referral Physician. pm1 09:51 No provider procedures requiring assistance completed. IV discontinued, intact, sv bleeding controlled, No redness/swelling at site. Pressure dressing applied. Administered Medications: 08:35 Drug: NS 0.9% 1000 ml Route: IV; Rate: 1000 ml; Site: right forearm; em 08:35 Drug: Zofran (Ondansetron) 4 mg Route: IVP; Site: right forearm; em 08:37 Drug: morphine 4 mg Route: IVP; Site: right forearm; em Outcome: 09:36 Discharge ordered by . pm1 09:51 Discharged to home ambulatory, with family. sv 09:51 Condition: stable 09:51 Discharge instructions given to patient, Instructed on discharge instructions, follow up and referral plans. no drinking with medication, no driving heavy equipment, medication usage, Demonstrated understanding of instructions, follow-up care, medications, Prescriptions given X 2. 09:51 Patient left the ED. sv Signatures: Brittani Berkowitz RN RN sv Jules Lee RN RN em Singh Harris NP UNDERWRITING MANAGER pm1 Nivia Langford RN RN Zapata, Dorie am2
[2020-01-27 10:01] VITALS: TEMP 97.8
[2020-01-27 10:03] VITALS: BP 129/86; O2SAT 98
== END 2020-01-27 09:51 | disposition home or self-care (01) ==
LOC: ER 08:05
DX: K86.1 Other chronic pancreatitis (principal); E11.9 Type 2 diabetes mellitus without complications; Z79.4 Long term (current) use of insulin
CPT/HCPCS: 36415; 80048; 80076; 83690; 85025; 96374; 96375; 99283; J2405; J7030

== ENCOUNTER 2020-02-25 17:26 | Emergency (ER) | payer SELFPAY ==
--- OUTSIDE RECORDS SUMMARY | 2020-02-25 17:28 | XMS REPORT | Continuity of Care Document ---
:1995 Author Organization [facility] t Address [address] [place] [address] [address] [place] [id number] Care Team Providers Name Role Phone Unavailable Unavailable Unavailable Problems This patient has no known problems. Allergies, Adverse Reactions, Alerts This patient has no known allergies or adverse reactions. Medications This patient has no known medications. Procedures This patient has no known procedures. Results This patient has no known results.
[2020-02-25] MEDS ORDERED: IBUPROFEN 400 MG TAB ONE (18:55)
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
[2020-02-25 19:19] VITALS: BP 142/91; TEMP 97.6; O2SAT 100
== END 2020-02-25 19:13 | disposition home or self-care (01) ==
LOC: ER 17:26
DX: R07.1 Chest pain on breathing (principal); V49.9XXA Car occupant (driver) (passenger) injured in unspecified traffic accident, initial encounter; E11.9 Type 2 diabetes mellitus without complications; Z79.4 Long term (current) use of insulin
CPT/HCPCS: 71045; 99283

== ENCOUNTER 2020-06-09 11:57 | Emergency (ER) | payer SELFPAY ==
--- NOTE | 2020-06-09 12:19 | ER ---
Nurse's Notes [facility] Name: Jimenez Patrick Age: 24 yrs Sex: Male : 1995 Arrival Date: 06/09/2020 Time: 12:00 Bed 23 Private MD: Diagnosis: Localized swelling, mass and lump, neck Presentation: 06/09 12:07 Chief complaint: Patient states: Left sided neck pain and swelling for 3 weeks. ll1 Happened once before 1.5 years ago. No fever. Coronavirus screen: Client denies travel out of the [place] in the last 14 days. At this time, the client does not indicate any symptoms associated with coronavirus-19. Ebola Screen: Patient denies travel to an Ebola-affected area in the 21 days before illness onset. Acute neurological deficit: none identified. Initial Sepsis Screen: Does the patient meet any 2 criteria? No. Patient's initial sepsis screen is negative. Risk Assessment: Do you want to hurt yourself or someone else? Patient reports no desire to harm self or others. Onset of symptoms was May 15, 2020. 12:07 Method Of Arrival: Ambulatory ll1 12:07 Acuity: MOSES 3 ll1 12:14 Initial Sepsis Screen: Does the patient have a suspected source of infection? No. ca1 Patient's initial sepsis screen is negative. Historical: - Allergies: 12:09 NKA; ll1 - PMHx: 12:09 Diabetes - IDDM; Chronic Pancreatitis; ll1 - PSHx: 12:09 stents in pancreas; Cholecystectomy; ll1 - Immunization history:: Flu vaccine is not up to date. - Social history:: Smoking status: Patient reports the use of cigarette tobacco products, denies chronic smoking, but will smoke occasionally, cigars. - Family history:: not pertinent. - Hospitalizations: : No recent hospitalization is reported. Screenin:13 Abuse screen: Denies threats or abuse. Denies injuries from another. Nutritional ca1 screening: No deficits noted. Tuberculosis screening: No symptoms or risk factors identified. Fall Risk None identified. Assessment: 12:13 General: Appears in no apparent distress. comfortable, Behavior is calm, cooperative, ca1 appropriate for age. General: Denies fever. Pain: Complains of pain in left submandibular area and left sternocleidomastoid Pain began 3 weeks. Neuro: Level of Consciousness is awake, alert, obeys commands, Oriented to person, place, time, situation. EENT: Throat is clear. Derm: Skin is intact, is healthy with good turgor, Skin is pink, warm \T\ dry. Musculoskeletal: Circulation, motion, and sensation intact. Capillary refill < 3 seconds. Vital Signs: 12:07 BP 147 / 94; Pulse 68; Resp 17; Temp 98.3; Pulse Ox 96% ; Weight 99.79 kg; Height 5 ft. ll1 9 in. (175.26 cm); Pain 5/10; 12:07 Body Mass Index 32.49 (99.79 kg, 175.26 cm) ll1 ED Course: 12:00 Patient arrived in ED. mr 12:08 Triage completed. ll1 12:09 Dontrell Dunlap MD is Attending Physician. rn 12:09 Arm band placed on Patient placed in an exam room, on a stretcher. ll1 12:13 Kellee Bartlett RN is Primary Nurse. ca1 12:13 Patient has correct armband on for positive identification. Bed in low position. Call ca1 light in reach. Side rails up X 1. Pulse ox on. NIBP on. 12:13 No provider procedures requiring assistance completed. Patient did not have IV access ca1 during this emergency room visit. 12:19 Brittani Castro MD is Referral Physician. rn Administered Medications: No medications were administered Outcome: 12:19 Discharge ordered by . rn 12:24 Discharged to home ambulatory. hb 12:24 Condition: stable 12:24 Discharge instructions given to patient, Instructed on discharge instructions, follow up and referral plans. medication usage, Demonstrated understanding of instructions, follow-up care, medications, Prescriptions given X 2. 12:25 Patient left the ED. hb Signatures: Sofía Cherry Dontrell Dunlap MD MD rn Baxter, Heather, RN RN hb Kellee Bartlett RN RN ca1 Lewis, Lynsay, RN RN ll1
--- NOTE | 2020-06-09 12:20 | EDPHYS ---
Physician Documentation [facility] Name: Jimenez Patrick Age: 24 yrs Sex: Male : 1995 Arrival Date: 06/09/2020 Time: 12:00 Bed 23 Private MD: ED Physician Dontrell Dunlap HPI: 06/09 12:14 This 24 yrs old Male presents to ER via Ambulatory with complaints of Neck rn Problem. 12:14 The patient or guardian complains of swelling. The symptoms are located on the left rn submandibular area. Onset: The symptoms/episode began/occurred 3 week(s) ago. The pain does not radiate. Modifying factors: The symptoms are alleviated by nothing. the symptoms are aggravated by nothing. Severity of symptoms: At their worst the symptoms were mild, in the emergency department the symptoms are unchanged. The patient has experienced a previous episode. Reports left neck swelling for about 3 weeks, has had before, seen by ENT, drained with needle told to see if happens again he needs to return. No fever or trauma. No sore throat or infectious symptoms. No lymphoma in family. . Historical: - Allergies: 12:09 NKA; ll1 - PMHx: 12:09 Diabetes - IDDM; Chronic Pancreatitis; ll1 - PSHx: 12:09 stents in pancreas; Cholecystectomy; ll1 - Immunization history:: Flu vaccine is not up to date. - Social history:: Smoking status: Patient reports the use of cigarette tobacco products, denies chronic smoking, but will smoke occasionally, cigars. - Family history:: not pertinent. - Hospitalizations: : No recent hospitalization is reported. ROS: 12:14 Constitutional: Negative for fever, chills, and weight loss, Eyes: Negative for injury, rn pain, redness, and discharge, ENT: Negative for injury, pain, and discharge, Neck: + left neck swelling Cardiovascular: Negative for chest pain, palpitations, and edema, Respiratory: Negative for shortness of breath, cough, wheezing, and pleuritic chest pain, Abdomen/GI: Negative for abdominal pain, nausea, vomiting, diarrhea, and constipation, MS/Extremity: Negative for injury and deformity, Skin: Negative for injury, rash, and discoloration, Neuro: Negative for headache, weakness, numbness, tingling, and seizure. Exam: 12:14 Constitutional: This is a well developed, well nourished patient who is awake, alert, rn and in no acute distress. Head/Face: Normocephalic, atraumatic. Eyes: Pupils equal round and reactive to light, extra-ocular motions intact. Lids and lashes normal. Conjunctiva and sclera are non-icteric and not injected. Cornea within normal limits. Periorbital areas with no swelling, redness, or edema. ENT: MMM, no stridor Neck: Trachea midline, + left submandibular swelling at angle of mandible, soft, mobile, no overlying skin changes. Supple neck. Skin: Warm, dry with normal turgor. Normal color with no rashes, no lesions, and no evidence of cellulitis. MS/ Extremity: Pulses equal, no cyanosis. Neurovascular intact. Full, normal range of motion. Equal circumference. Neuro: Awake and alert, GCS 15, oriented to person, place, time, and situation. Cranial nerves II-XII grossly intact. Motor strength 5/5 in all extremities. Sensory grossly intact. Cerebellar exam normal. Normal gait. Vital Signs: 12:07 BP 147 / 94; Pulse 68; Resp 17; Temp 98.3; Pulse Ox 96% ; Weight 99.79 kg; Height 5 ft. ll1 9 in. (175.26 cm); Pain 5/10; 12:07 Body Mass Index 32.49 (99.79 kg, 175.26 cm) ll1 MDM: 12:09 Patient medically screened. rn 12:14 Differential diagnosis: lymphadenitis, cyst, lymphadenopathy. Data reviewed: vital rn signs, nurses notes, and as a result, I will discharge patient. Counseling: I had a detailed discussion with the patient and/or guardian regarding: the historical points, exam findings, and any diagnostic results supporting the discharge/admit diagnosis, the need for outpatient follow up, to return to the emergency department if symptoms worsen or persist or if there are any questions or concerns that arise at home. Special discussion: I discussed with the patient/guardian in detail that at this point there is no indication for admission to the hospital. It is understood, however, that if the symptoms persist or worsen the patient needs to return immediately for re-evaluation. Based on the history and exam findings, there is no indication for further emergent testing or inpatient evaluation. I discussed with the patient/guardian the need to see the ENT specialist for further evaluation of the symptoms. ED course: 3 weeks of symptoms, no fever, stable, no indication for emergent drainage, will refer to ENT for further care as that is how he took care of other time 1.5 years ago. Will cover with abx and steroids in case infectious/lymphadenitis, but most likely not. . Administered Medications: No medications were administered Disposition: 06/09/20 12:19 Discharged to Home. Impression: Localized swelling, mass and lump, neck. - Condition is Stable. - Prescriptions for Clindamycin HCl 300 mg Oral Capsule - take 1 capsule by ORAL route every 6 hours for 10 days; 40 capsule. Medrol (Toy) 4 mg Oral Tablets, Dose Pack - take 1 tablet by ORAL route as directed - follow package instructions; 1 packet. - Medication Reconciliation Form, Thank You Letter, Antibiotic Education, Prescription Opioid Use form. - Follow up: Brittani Castro MD; When: As needed; Reason: Recheck today's complaints, Re-evaluation by your physician. - Problem is new. - Symptoms are unchanged. Signatures: Dontrell Dunlap MD MD rn Baxter, Heather, RN RN hb Lewis, Lynsay, RN RN ll1 Corrections: (The following items were deleted from the chart) 12:25 12:19 06/09/2020 12:19 Discharged to Home. Impression: Localized swelling, mass and hb lump, neck. Condition is Stable. Forms are Medication Reconciliation Form, Thank You Letter, Antibiotic Education, Prescription Opioid Use. Follow up: Brittani Castro; When: As needed; Reason: Recheck today's complaints, Re-evaluation by your physician. Problem is new. Symptoms are unchanged. rn
[2020-06-09 12:40] VITALS: BP 147/94; TEMP 98.3; O2SAT 96
--- OUTSIDE RECORDS SUMMARY | 2020-06-12 06:47 | XMS REPORT | Continuity of Care Document ---
:1995 Author Organization [facility] Address [address] [place] [address] [address] [place] [id number] Care Team Providers Name Role Phone Unavailable Unavailable Unavailable Problems This patient has no known problems. Allergies, Adverse Reactions, Alerts This patient has no known allergies or adverse reactions. Medications This patient has no known medications. Procedures This patient has no known procedures. Results This patient has no known results.
== END 2020-06-09 12:25 | disposition home or self-care (01) ==
LOC: ER 11:57
DX: R22.1 Localized swelling, mass and lump, neck (principal); E11.9 Type 2 diabetes mellitus without complications; F17.290 Nicotine dependence, other tobacco product, uncomplicated
CPT/HCPCS: 99283

== ENCOUNTER 2020-06-23 06:54 | Emergency (ER) | payer OTHER, SELFPAY ==
--- OUTSIDE RECORDS SUMMARY | 2020-06-23 06:57 | XMS REPORT | Continuity of Care Document ---
:1995 Author Organization [facility] t Address [address] [place] [address] [address] [place] [id number] Care Team Providers Name Role Phone Unavailable Unavailable Unavailable Problems This patient has no known problems. Allergies, Adverse Reactions, Alerts This patient has no known allergies or adverse reactions. Medications This patient has no known medications. Procedures This patient has no known procedures. Results This patient has no known results.
[2020-06-23] MEDS ORDERED: MORPHINE 4 MG/ML SYR ONE (07:47)
[2020-06-23] MEDS ORDERED: ONDANSETRON 4 MG/2 ML VIAL ONE (07:47)
[2020-06-23] MEDS ORDERED: FAMOTIDINE 20 MG/2 ML VIAL IV ONE (07:47)
[2020-06-23] MEDS ORDERED: NA CHLORIDE 0.9% 1,000 ML ONE (07:47)
[2020-06-23 08:01] LABS: Absolute Lymphocytes (CBC) 3.1 K/uL (0.7-4.9); Basophils % 1.1 % (0-1.3); Hematocrit 46.5 % (39.6-49.0); Lymphocytes % 41.4 % (15.3-44.8); MPV 9.7 fL (7.6-11.3); RBC Red Blood Cell Count 5.49 M/uL (4.33-5.43)
[2020-06-23 08:19] LABS: ALT/SGPT 100 U/L (12-78); AST/SGOT 45 U/L (15-37); Albumin 3.7 g/dL (3.4-5.0); Alkaline Phosphatase 129 U/L (45-117); BUN Blood Urea Nitrogen 7 mg/dL (7-18); Bicarbonate 25 mmol/L (21-32); Bilirubin Direct 0.2 mg/dL (0-0.2); Bilirubin Total 0.8 mg/dL (0.2-1.0); Glucose Level 194 mg/dL (74-106); Lipase 53 U/L (73-393); Potassium 3.3 mmol/L (3.5-5.1); Protein, Total 7.1 g/dL (6.4-8.2); Sodium Level 138 mmol/L (136-145)
--- NOTE | 2020-06-23 09:19 | ER ---
Nurse's Notes [facility] Name: Jimenez Patrick Age: 24 yrs Sex: Male : 1995 Arrival Date: 06/23/2020 Time: 06:59 Bed 5 Private MD: Diagnosis: Abdominal and pelvic pain Presentation: 06/23 07:08 Chief complaint: Patient states: stabbing epigastric pain that began at 0300 this morning. Pt reports that he has chronic pancreatitis and is having a flare up. Coronavirus screen: Client denies travel out of the [place] in the last 14 days. Ebola Screen: Patient denies exposure to infectious person. Patient denies travel to an Ebola-affected area in the 21 days before illness onset. Initial Sepsis Screen: Does the patient meet any 2 criteria? No. Patient's initial sepsis screen is negative. Does the patient have a suspected source of infection? No. Patient's initial sepsis screen is negative. Risk Assessment: Do you want to hurt yourself or someone else? Patient reports no desire to harm self or others. Onset of symptoms was June 23, 2020. 07:08 Method Of Arrival: Ambulatory ss 07:08 Acuity: MOSES 3 ss Triage Assessment: 07:19 General: Behavior is calm, cooperative. vg1 Historical: - Allergies: 07:12 NKA; ss - PMHx: 07:12 Chronic Pancreatitis; Diabetes - IDDM; ss - PSHx: 07:12 pancreatic stents; Cholecystectomy; ss - Immunization history:: Adult Immunizations up to date. - Social history:: Smoking status: Patient reports the use of cigarette tobacco products, denies chronic smoking, but will smoke occasionally, Patient uses alcohol, occasionally. Last use was Tuesday. Screenin:13 Abuse screen: Denies threats or abuse. Denies injuries from another. Nutritional ss screening: No deficits noted. Tuberculosis screening: Never had TB. Fall Risk None identified. Assessment: 07:19 General: Appears in no apparent distress. comfortable. Pain: Complains of pain in right vg1 upper quadrant Pain currently is 6 out of 10 on a pain scale. Pain began 4 hours ago. Neuro: Level of Consciousness is awake, alert, obeys commands, confused, Oriented to person, place, time, situation. Cardiovascular: Patient's skin is warm and dry. Respiratory: Airway is patent Respiratory effort is even, unlabored, Respiratory pattern is regular, symmetrical. GI: patient guarding LUQ. : No signs and/or symptoms were reported regarding the genitourinary system. EENT: No signs and/or symptoms were reported regarding the EENT system. Derm: Skin is pink, warm \\T\\ dry. Musculoskeletal: Range of motion: intact in all extremities. 07:19 General: Denies nausea and vomiting. vg1 08:18 Reassessment: Patient appears in no apparent distress at this time. Patient and/or vg1 family updated on plan of care and expected duration. Pain level reassessed. Patient is alert, oriented x 3, equal unlabored respirations, skin warm/dry/pink. Patient states pain level is 4/10. 09:20 Reassessment: Patient appears in no apparent distress at this time. Patient and/or vg1 family updated on plan of care and expected duration. Pain level reassessed. Patient is alert, oriented x 3, equal unlabored respirations, skin warm/dry/pink. Patient states "feels better" and rates pain 2/10. Vital Signs: 07:08 BP 122 / 88; Pulse 83; Resp 15; Temp 97.5(TE); Pulse Ox 99% on R/A; Weight 99.79 kg; ss Height 5 ft. 9 in. (175.26 cm); Pain 6/10; 07:25 BP 117 / 86; Pulse 79; Resp 14; Pulse Ox 98% on R/A; Pain 6/10; vg1 07:45 BP 130 / 94; Pulse 72; Resp 14; Pulse Ox 98% on R/A; vg1 08:30 BP 136 / 86; Pulse 61; Resp 14; Pulse Ox 97% on R/A; vg1 09:00 BP 127 / 81; Pulse 58; Resp 12; Pulse Ox 99% on R/A; Pain 2/10; vg1 07:08 Body Mass Index 32.49 (99.79 kg, 175.26 cm) ED Course: 06:59 Patient arrived in ED. as 07:05 Jules Lee, ERIC is Primary Nurse. em 07:08 Raulito Thompson MD is Attending Physician. kdr 07:11 Triage completed. ss 07:12 Arm band placed on right wrist. ss 07:13 Patient has correct armband on for positive identification. Bed in low position. Call light in reach. 07:13 Patient maintains SpO2 saturation greater than 95% on room air. 07:14 Primary Nurse role handed off by Jules Lee RN vg1 07:14 Rosie Jordan, RN is Primary Nurse. vg1 07:26 Dr Thompson at bedside. vg1 07:40 Inserted saline lock: 20 gauge in right antecubital area, using aseptic technique. vg1 Blood collected. IV is patent, is intact, Flushed right antecubital with 5 ml normal saline. 09:21 Basic Metabolic Panel Sent. vg1 09:21 CBC with Diff Sent. vg1 09:25 No provider procedures requiring assistance completed. IV discontinued, intact, vg1 bleeding controlled, No redness/swelling at site. Pressure dressing applied. Administered Medications: 07:45 Drug: NS 0.9% 1000 ml Route: IV; Rate: 1 bolus; Site: right antecubital; vg1 08:22 Follow up: Response: No adverse reaction; Rate change 1000 bolus vg1 07:45 Drug: Pepcid 20 mg Route: IVP; Site: right antecubital; vg1 08:22 Follow up: Response: No adverse reaction vg1 07:45 Drug: morphine 4 mg {Note: RASS 0.} Route: IVP; Site: right antecubital; vg1 08:21 Follow up: Response: No adverse reaction; Pain is decreased vg1 08:23 Follow up: Response: RASS: Alert and Calm (0) vg1 07:45 Drug: Zofran (Ondansetron) 4 mg Route: IVP; Site: right antecubital; vg1 08:21 Follow up: Response: No adverse reaction; Nausea is decreased vg1 Outcome: 09:18 Discharge ordered by . kdr 09:27 Discharged to home ambulatory. vg1 09:27 Condition: stable 09:27 Discharge instructions given to patient, Instructed on discharge instructions, follow up and referral plans. medication usage, Demonstrated understanding of instructions, follow-up care, medications, Prescriptions given X 3. 09:30 Patient left the ED. vg1 Signatures: Raulito Thompson MD MD kdr Munoz, Edgar, RN RN Aminta Mayes Shelby, RN RN Rosie Jordan, ERIC RN vg1 Corrections: (The following items were deleted from the chart) 08:29 07:19 Pain: Complains of pain in left upper quadrant Pain currently is 6 out of 10 on a vg1 pain scale. Pain began 4 hours ago. vg1
--- NOTE | 2020-06-23 09:19 | EDPHYS ---
Physician Documentation [facility] Name: Jimenez Patrick Age: 24 yrs Sex: Male : 1995 Arrival Date: 06/23/2020 Time: 06:59 Bed 5 Private MD: ED Physician Raulito Thompson HPI: 06/23 07:38 This 24 yrs old Male presents to ER via Ambulatory with complaints of kdr Abdominal Pain. 07:38 The patient presents with abdominal pain in the epigastric area, in the upper abdomen. kdr Onset: The symptoms/episode began/occurred suddenly, this morning. The symptoms radiate to mid back area, left mid back, right mid back, right upper quadrant and left upper quadrant. Associated signs and symptoms: Pertinent positives: diarrhea, nausea, Pertinent negatives: anorexia, blood in stools, chest pain, constipation, dysuria, fever, headache, hematuria, palpitations, shortness of breath, testicular pain. The symptoms are described as achy, burning. Modifying factors: The symptoms are alleviated by nothing, the symptoms are aggravated by food, touching the area. Severity of pain: At its worst the pain was mild moderate just prior to arrival. The patient has experienced similar episodes in the past, multiple times, and the symptoms today are exactly the same. The patient has not recently seen a physician. Historical: - Allergies: 07:12 NKA; ss - PMHx: 07:12 Chronic Pancreatitis; Diabetes - IDDM; ss - PSHx: 07:12 pancreatic stents; Cholecystectomy; ss - Immunization history:: Adult Immunizations up to date. - Social history:: Smoking status: Patient reports the use of cigarette tobacco products, denies chronic smoking, but will smoke occasionally, Patient uses alcohol, occasionally. Last use was Tuesday. ROS: 07:38 Constitutional: Negative for fever, chills, and weight loss, Eyes: Negative for injury, kdr pain, redness, and discharge, ENT: Negative for injury, pain, and discharge, Neck: Negative for injury, pain, and swelling, Cardiovascular: Negative for chest pain, palpitations, and edema, Respiratory: Negative for shortness of breath, cough, wheezing, and pleuritic chest pain, Back: Negative for injury and pain, : Negative for injury, bleeding, discharge, and swelling, MS/Extremity: Negative for injury and deformity, Skin: Negative for injury, rash, and discoloration, Neuro: Negative for headache, weakness, numbness, tingling, and seizure activity. Psych: Negative for depression, anxiety, suicide ideation, homicidal ideation, and hallucinations, Allergy/Immunology: Negative for hives, rash, and allergies, Endocrine: Negative for neck swelling, polydipsia, polyuria, polyphagia, and marked weight changes, Hematologic/Lymphatic: Negative for swollen nodes, abnormal bleeding, and unusual bruising. 07:38 Abdomen/GI: Positive for abdominal pain, nausea, Negative for constipation, abdominal cramps, abdominal distension, anorexia, dysphagia, hematemesis, black/tarry stool, rectal pain, rectal bleeding, bowel incontinence. Exam: 07:38 Constitutional: This is a well developed, well nourished patient who is awake, alert, kdr and in no acute distress. Head/Face: Normocephalic, atraumatic. Eyes: Pupils equal round and reactive to light, extra-ocular motions intact. Lids and lashes normal. Conjunctiva and sclera are non-icteric and not injected. Cornea within normal limits. Periorbital areas with no swelling, redness, or edema. Neck: Trachea midline, no thyromegaly or masses palpated, and no cervical lymphadenopathy. Supple, full range of motion without nuchal rigidity, or vertebral point tenderness. No Meningismus. Chest/axilla: Normal chest wall appearance and motion. Nontender with no deformity. No lesions are appreciated. Cardiovascular: Regular rate and rhythm with a normal S1 and S2. No gallops, murmurs, or rubs. Normal PMI, no JVD. No pulse deficits. Respiratory: Lungs have equal breath sounds bilaterally, clear to auscultation and percussion. No rales, rhonchi or wheezes noted. No increased work of breathing, no retractions or nasal flaring. Back: No spinal tenderness. No costovertebral tenderness. Full range of motion. Skin: Warm, dry with normal turgor. Normal color with no rashes, no lesions, and no evidence of cellulitis. MS/ Extremity: Pulses equal, no cyanosis. Neurovascular intact. Full, normal range of motion. Neuro: Awake and alert, GCS 15, oriented to person, place, time, and situation. Cranial nerves II-XII grossly intact. Motor strength 5/5 in all extremities. Sensory grossly intact. Cerebellar exam normal. Normal gait. Psych: Awake, alert, with orientation to person, place and time. Behavior, mood, and affect are within normal limits. 07:38 Abdomen/GI: Inspection: abdomen appears normal, Bowel sounds: diminished, in all quadrants, Palpation: soft, mild abdominal tenderness, in the epigastric area and left upper quadrant, mass, is not appreciated, rebound tenderness, is not appreciated, voluntary guarding, is not appreciated. Vital Signs: 07:08 BP 122 / 88; Pulse 83; Resp 15; Temp 97.5(TE); Pulse Ox 99% on R/A; Weight 99.79 kg; ss Height 5 ft. 9 in. (175.26 cm); Pain 6/10; 07:25 BP 117 / 86; Pulse 79; Resp 14; Pulse Ox 98% on R/A; Pain 6/10; vg1 07:45 BP 130 / 94; Pulse 72; Resp 14; Pulse Ox 98% on R/A; vg1 08:30 BP 136 / 86; Pulse 61; Resp 14; Pulse Ox 97% on R/A; vg1 09:00 BP 127 / 81; Pulse 58; Resp 12; Pulse Ox 99% on R/A; Pain 2/10; vg1 07:08 Body Mass Index 32.49 (99.79 kg, 175.26 cm) ss MDM: 07:38 Data reviewed: vital signs, nurses notes, lab test result(s). Counseling: I had a kdr detailed discussion with the patient and/or guardian regarding: the historical points, exam findings, and any diagnostic results supporting the discharge/admit diagnosis, lab results, the need for outpatient follow up. 09:18 Patient medically screened. kdr 09:20 ED course: The patient was feeling much better with the interventions given and was kdr happy with the plan for discharge and follow-up. 06/23 07:27 Order name: Basic Metabolic Panel kdr 06/23 07:27 Order name: CBC with Diff kdr 06/23 07:27 Order name: Hepatic Function; Complete Time: 09:03 kdr 06/23 07:27 Order name: Lipase; Complete Time: 09:03 kdr 06/23 07:28 Order name: Basic Metabolic Panel; Complete Time: 09:03 EDMS 06/23 07:28 Order name: CBC with Automated Diff; Complete Time: 09:03 EDHI 06/23 07:27 Order name: IV Saline Lock; Complete Time: 07:59 kdr 06/23 07:27 Order name: Labs collected and sent; Complete Time: 07:59 kdr Administered Medications: 07:45 Drug: NS 0.9% 1000 ml Route: IV; Rate: 1 bolus; Site: right antecubital; vg1 08:22 Follow up: Response: No adverse reaction; Rate change 1000 bolus vg1 07:45 Drug: Pepcid 20 mg Route: IVP; Site: right antecubital; vg1 08:22 Follow up: Response: No adverse reaction vg1 07:45 Drug: morphine 4 mg {Note: RASS 0.} Route: IVP; Site: right antecubital; vg1 08:21 Follow up: Response: No adverse reaction; Pain is decreased vg1 08:23 Follow up: Response: RASS: Alert and Calm (0) vg1 07:45 Drug: Zofran (Ondansetron) 4 mg Route: IVP; Site: right antecubital; vg1 08:21 Follow up: Response: No adverse reaction; Nausea is decreased vg1 Disposition: 06/23/20 09:18 Discharged to Home. Impression: Abdominal and pelvic pain. - Condition is Stable. - Discharge Instructions: Abdominal Pain, Adult, [id number], Chronic Pancreatitis. - Prescriptions for Bentyl 20 mg Oral Tablet - take 1 tablet by ORAL route every 6 hours As needed; 20 tablet. Zofran 4 mg Oral Tablet - take 1 tablet by ORAL route every 4-6 hours As needed; 12 tablet. Tramadol 50 mg Oral Tablet - take 1 tablet by ORAL route every 8 hours as needed; 12 tablet. - Medication Reconciliation Form, Thank You Letter, Prescription Opioid Use, Work release form form. - Follow up: Private Physician; When: 2 - 3 days; Reason: If symptoms return, Further diagnostic work-up, Recheck today's complaints, Continuance of care, Re-evaluation by your physician. - Problem is an acute exacerbation. - Symptoms have improved. Signatures: Dispatcher [employer] [facility] Raulito Thompson MD MD kdr Smirch, Shelby, RN RN ss Garcia, Victoria, RN RN vg1 Corrections: (The following items were deleted from the chart) 09:30 09:18 06/23/2020 09:18 Discharged to Home. Impression: Abdominal and pelvic pain. vg1 Condition is Stable. Forms are Medication Reconciliation Form, Thank You Letter, Antibiotic Education, Prescription Opioid Use. Follow up: Private Physician; When: 2 - 3 days; Reason: If symptoms return, Further diagnostic work-up, Recheck today's complaints, Continuance of care, Re-evaluation by your physician. Problem is an acute exacerbation. Symptoms have improved. kdr
[2020-06-23 09:44] VITALS: TEMP 97.5
[2020-06-23 10:09] VITALS: BP 127/81; O2SAT 99
== END 2020-06-23 09:30 | disposition home or self-care (01) ==
LOC: ER 06:54
DX: R10.9 Unspecified abdominal pain (principal); R10.2 Pelvic and perineal pain
CPT/HCPCS: 85025; 80048; 36415; 80076; 83690; 96375; 96374; 99284; J7030; J2405

== ENCOUNTER 2020-10-04 23:18 | Emergency (ER) | payer OTHER ==
[2012-05-22 03:37] VITALS: BP 142/80
--- OUTSIDE RECORDS SUMMARY | 2020-10-04 23:20 | XMS REPORT | Continuity of Care Document ---
:1995 Author Organization [facility] Address [address] [place] [address] [address] [place] [id number] Care Team Providers Name Role Phone Unavailable Unavailable Unavailable Problems This patient has no known problems. Allergies, Adverse Reactions, Alerts This patient has no known allergies or adverse reactions. Medications This patient has no known medications. Procedures This patient has no known procedures. Results This patient has no known results.
--- NOTE | 2020-10-05 00:25 | ER ---
Nurse's Notes [facility] Name: Jimenez Patrick Age: 25 yrs Sex: Male : 1995 Arrival Date: 10/04/2020 Time: 23:37 Bed Waiting Private MD: Diagnosis: ED Course: 10/04 23:37 Patient arrived in ED. cf2 Administered Medications: No medications were administered Outcome: 10/05 00:23 Eloped from waiting room, before seeing physician Time discovered patient gone: September at 00:24 Reported left by Registration staff 00:24 Patient left the ED. lp1 Signatures: Zeynep Patrick RN RN lp1 Mera Gant cf2
== END 2020-10-05 00:24 | disposition left against medical advice (07) ==
LOC: ER 23:18
DX: Z53.21 Procedure and treatment not carried out due to patient leaving prior to being seen by health care provider (principal)

== ENCOUNTER 2020-10-05 11:15 | Emergency (ER) | payer OTHER ==
--- OUTSIDE RECORDS SUMMARY | 2020-10-05 11:16 | XMS REPORT | Continuity of Care Document ---
:1995 Author Organization [facility] t Address [address] [place] [address] [address] [place] [id number] Care Team Providers Name Role Phone Unavailable Unavailable Unavailable Problems This patient has no known problems. Allergies, Adverse Reactions, Alerts This patient has no known allergies or adverse reactions. Medications This patient has no known medications. Procedures This patient has no known procedures. Results This patient has no known results.
[2020-10-05] MEDS ORDERED: FAMOTIDINE 20 MG/2 ML VIAL IV ONE (12:21)
[2020-10-05] MEDS ORDERED: MORPHINE 4 MG/ML SYR ONE (12:21)
[2020-10-05] MEDS ORDERED: ONDANSETRON 4 MG/2 ML VIAL ONE (12:21)
[2020-10-05] MEDS ORDERED: NA CHLORIDE 0.9% 1,000 ML ONE (12:21)
[2020-10-05 12:45] LABS: Absolute Lymphocytes (CBC) 1.6 K/uL (0.7-4.9); Basophils % 1.1 % (0-1.3); Hematocrit 46.5 % (39.6-49.0); Lymphocytes % 18.1 % (15.3-44.8); MPV 9.9 fL (7.6-11.3); RBC Red Blood Cell Count 5.44 M/uL (4.33-5.43)
[2020-10-05 12:50] LABS: ALT/SGPT 46 U/L (12-78); AST/SGOT 22 U/L (15-37); Albumin 3.8 g/dL (3.4-5.0); Alkaline Phosphatase 129 U/L (45-117); BUN Blood Urea Nitrogen 9 mg/dL (7-18); Bicarbonate 27 mmol/L (21-32); Bilirubin Direct 0.3 mg/dL (0-0.2); Bilirubin Total 1.3 mg/dL (0.2-1.0); Glucose Level 331 mg/dL (74-106); Lipase 40 U/L (73-393); Potassium 3.9 mmol/L (3.5-5.1); Sodium Level 139 mmol/L (136-145)
--- NOTE | 2020-10-05 13:04 | EDPHYS ---
Physician Documentation [facility] Name: Jimenez Patrick Age: 25 yrs Sex: Male : 1995 Arrival Date: 10/05/2020 Time: 11:17 Bed 14 Private MD: ED Physician Juany Valle HPI: 10/05 12:03 This 25 yrs old Male presents to ER via Ambulatory with complaints of pm1 Abdominal Pain. 12:03 The patient presents with abdominal pain in the epigastric area. Onset: The pm1 symptoms/episode began/occurred 3 day(s) ago. The symptoms radiate to right upper quadrant. Associated signs and symptoms: none. Pertinent negatives: nausea, vomiting, and diarrhea, chest pain, fever, shortness of breath. The symptoms are described as crampy. Modifying factors: The symptoms are alleviated by NSAIDs, the symptoms are aggravated by Lifting heavy objects at work. Severity of pain: in the emergency department the pain is actually worse. The patient has experienced similar episodes in the past, multiple times, and the symptoms today are exactly the same, to previous chronic pancreatitis flare up. The patient has not recently seen a physician. 12:03 He has been taking ibuprofen prior to work and it has made the pain tolerable . pm1 Historical: - Allergies: 11:25 NKA; ss - PMHx: 11:25 Chronic Pancreatitis; Diabetes - IDDM; ss - PSHx: 11:25 Cholecystectomy; pancreatic stents x 2; ss - Immunization history:: Adult Immunizations up to date. - Social history:: Smoking status: Patient denies any tobacco usage or history of. ROS: 12:03 Constitutional: Negative for fever, chills, and weight loss, Cardiovascular: Negative pm1 for chest pain, palpitations, and edema, Respiratory: Negative for shortness of breath, cough, wheezing, and pleuritic chest pain. 12:03 Back: Negative for injury and pain, : Negative for injury, bleeding, discharge, and swelling, MS/Extremity: Negative for injury and deformity, Skin: Negative for injury, rash, and discoloration, Neuro: Negative for headache, weakness, numbness, tingling, and seizure. 12:03 Abdomen/GI: Positive for abdominal pain, of the epigastric area, Negative for nausea, vomiting, and diarrhea. Exam: 12:03 Constitutional: This is a well developed, well nourished patient who is awake, alert, pm1 and in no acute distress. Head/Face: Normocephalic, atraumatic. 12:03 Back: No spinal tenderness. No costovertebral tenderness. Full range of motion. Skin: Warm, dry with normal turgor. Normal color with no rashes, no lesions, and no evidence of cellulitis. MS/ Extremity: Pulses equal, no cyanosis. Neurovascular intact. Full, normal range of motion. 12:03 Cardiovascular: Exam negative for acute changes, Rate: normal, Rhythm: regular, Pulses: no pulse deficits are appreciated. 12:03 Respiratory: Exam negative for acute changes, respiratory distress, shortness of breath. 12:03 Abdomen/GI: Inspection: abdomen appears normal, Bowel sounds: normal, Palpation: abdomen is soft and non-tender, in all quadrants, mass, is not appreciated, rebound tenderness, is not appreciated. 12:03 Neuro: Exam negative for acute changes, Orientation: is normal, Mentation: is normal, Motor: is normal, moves all fours, Gait: is steady, at a normal pace, without difficulty. Vital Signs: 11:24 BP 129 / 80; Pulse 78; Resp 15; Temp 97.9(TE); Pulse Ox 100% on R/A; Weight 97.52 kg; ss Height 5 ft. 9 in. (175.26 cm); Pain 6/10; 12:31 BP 129 / 94; Pulse 76; Resp 14; Pulse Ox 99% on R/A; vg1 13:26 BP 144 / 88; Pulse 70; Resp 14; Pulse Ox 100% on R/A; vg1 11:24 Body Mass Index 31.75 (97.52 kg, 175.26 cm) ss MDM: 11:51 Patient medically screened. pm1 13:02 Data reviewed: vital signs. Counseling: I had a detailed discussion with the patient pm1 and/or guardian regarding: the historical points, exam findings, and any diagnostic results supporting the discharge/admit diagnosis, lab results, the need for outpatient follow up, to return to the emergency department if symptoms worsen or persist or if there are any questions or concerns that arise at home. 13:02 ED course: Patient's pain is improved with 2/10 pain after giving IV pain medications pm1 and he feels ready to go home. 10/05 11:56 Order name: Basic Metabolic Panel; Complete Time: 12:50 pm1 10/05 11:56 Order name: CBC with Diff; Complete Time: 12:50 pm1 10/05 11:56 Order name: Hepatic Function; Complete Time: 12:50 pm1 10/05 11:56 Order name: Lipase; Complete Time: 12:50 pm1 10/05 11:56 Order name: IV Saline Lock; Complete Time: 12:28 pm1 10/05 11:56 Order name: Labs collected and sent; Complete Time: 12:28 pm1 Administered Medications: 12:28 Drug: morphine 4 mg {Note: rass0.} Route: IVP; Site: right antecubital; vg1 13:27 Follow up: Response: Pain is decreased vg1 12:28 Drug: Pepcid 20 mg Route: IVP; Site: right antecubital; vg1 13:27 Follow up: Response: No adverse reaction vg1 12:28 Drug: Zofran (Ondansetron) 4 mg Route: IVP; Site: right antecubital; vg1 13:27 Follow up: Response: No adverse reaction vg1 12:28 Drug: NS 0.9% 1000 ml Route: IV; Rate: 1000 ml; Site: right antecubital; vg1 13:27 Follow up: IV Status: Completed infusion; IV Intake: 1000ml vg1 Disposition: 10/05/20 13:04 Discharged to Home. Impression: Other chronic pancreatitis. - Condition is Stable. - Discharge Instructions: Abdominal Pain, Adult, Chronic Pancreatitis. - Prescriptions for Zofran ODT 4 mg Oral tablet,disintegrating - place 1 tablet by TRANSLINGUAL route every 8 hours As needed; 20 tablet. Bentyl 20 mg Oral Tablet - take 1 tablet by ORAL route every 6 hours As needed; 20 tablet. Tramadol 50 mg Oral Tablet - take 1 tablet by ORAL route every 8 hours as needed; 12 tablet. - Medication Reconciliation Form, Thank You Letter, Antibiotic Education, Prescription Opioid Use form. - Follow up: Emergency Department; When: As needed; Reason: Worsening of condition. Follow up: Private Physician; When: 2 - 3 days; Reason: Recheck today's complaints, Continuance of care, Re-evaluation by your physician. - Problem is new. - Symptoms have improved. Addendum: 10/06/2020 18:28 Co-signature as Attending Physician, Juany Valle MD. m a2 Signatures: Dispatcher [employer] EDMS Mikaela Vasquez, RN RN ss Singh Harris, PRECISION DYER PRECISION DYER pm1 Juany Valle MD MD ma2 Rosie Jordan, RN RN vg1 Corrections: (The following items were deleted from the chart) 10/05 13:04 13:04 10/05/2020 13:04 Discharged to Home. Impression: Unspecified abdominal pain. pm1 Condition is Stable. Forms are Medication Reconciliation Form, Thank You Letter, Antibiotic Education, Prescription Opioid Use. Follow up: Emergency Department; When: As needed; Reason: Worsening of condition. Follow up: Private Physician; When: 2 - 3 days; Reason: Recheck today's complaints, Continuance of care, Re-evaluation by your physician. Problem is new. Symptoms have improved. pm1 13:05 13:04 10/05/2020 13:04 Discharged to Home. Impression: Unspecified abdominal pain. pm1 Condition is Stable. Forms are Medication Reconciliation Form, Thank You Letter, Antibiotic Education, Prescription Opioid Use. Follow up: Emergency Department; When: As needed; Reason: Worsening of condition. Follow up: Private Physician; When: 2 - 3 days; Reason: Recheck today's complaints, Continuance of care, Re-evaluation by your physician. Problem is new. Symptoms have improved. pm1 13:27 13:05 10/05/2020 13:04 Discharged to Home. Impression: Other chronic pancreatitis. vg1 Condition is Stable. Discharge Instructions: Abdominal Pain, Adult. Forms are Medication Reconciliation Form, Thank You Letter, Antibiotic Education, Prescription Opioid Use. Follow up: Emergency Department; When: As needed; Reason: Worsening of condition. Follow up: Private Physician; When: 2 - 3 days; Reason: Recheck today's complaints, Continuance of care, Re-evaluation by your physician. Problem is new. Symptoms have improved. pm1
--- NOTE | 2020-10-05 13:04 | ER ---
Nurse's Notes [facility] Name: Jimenez Patrick Age: 25 yrs Sex: Male : 1995 Arrival Date: 10/05/2020 Time: 11:17 Bed 14 Private MD: Diagnosis: Other chronic pancreatitis Presentation: 10/05 11:24 Chief complaint: Patient states: epigastric abd pain that radiates towards RUQ that ss began 3 days ago. Pt reports a hx of chronic pancreatitis and believes this is a flare up. Coronavirus screen: Client denies travel out of the [place] in the last 14 days. Ebola Screen: Patient denies exposure to infectious person. Patient denies travel to an Ebola-affected area in the 21 days before illness onset. Initial Sepsis Screen: Does the patient meet any 2 criteria? No. Patient's initial sepsis screen is negative. Does the patient have a suspected source of infection? No. Patient's initial sepsis screen is negative. Risk Assessment: Do you want to hurt yourself or someone else? Patient reports no desire to harm self or others. Onset of symptoms was October 02, 2020. 11:24 Method Of Arrival: Ambulatory ss 11:24 Acuity: MOSES 3 ss Historical: - Allergies: 11:25 NKA; ss - PMHx: 11:25 Chronic Pancreatitis; Diabetes - IDDM; ss - PSHx: 11:25 Cholecystectomy; pancreatic stents x 2; ss - Immunization history:: Adult Immunizations up to date. - Social history:: Smoking status: Patient denies any tobacco usage or history of. Screenin:30 Abuse screen: Denies threats or abuse. Nutritional screening: No deficits noted. vg1 Tuberculosis screening: No symptoms or risk factors identified. Fall Risk IV access (20 points). Ambulatory Aid- None/Bed Rest/Nurse Assist (0 pts). Gait- Normal/Bed Rest/Wheelchair (0 pts) Mental Status- Oriented to own ability (0 pts). Total Dominguez Fall Scale indicates No Risk (0-24 pts). Assessment: 12:10 General: Appears in no apparent distress. comfortable, Behavior is calm, cooperative. vg1 Pain: Complains of pain in epigastric area and right upper quadrant Pain currently is 6 out of 10 on a pain scale. Pain began 2-3 days ago. Neuro: Level of Consciousness is awake, alert, obeys commands, Oriented to person, place, time, situation. Cardiovascular: Patient's skin is warm and dry. Respiratory: Airway is patent Respiratory effort is even, unlabored, Respiratory pattern is regular, symmetrical. GI: Bowel sounds present X 4 quads. Abd is soft X 4 quads Abdomen is tender to palpation in epigastric area and right upper quadrant. : No signs and/or symptoms were reported regarding the genitourinary system. EENT: No signs and/or symptoms were reported regarding the EENT system. Derm: Skin is intact, is healthy with good turgor. Musculoskeletal: Circulation, motion, and sensation intact. 13:25 Reassessment: Patient appears in no apparent distress at this time. Patient and/or vg1 family updated on plan of care and expected duration. Pain level reassessed. Patient is alert, oriented x 3, equal unlabored respirations, skin warm/dry/pink. Stated pain level 3/10 Patient states feeling better. Vital Signs: 11:24 BP 129 / 80; Pulse 78; Resp 15; Temp 97.9(TE); Pulse Ox 100% on R/A; Weight 97.52 kg; ss Height 5 ft. 9 in. (175.26 cm); Pain 6/10; 12:31 BP 129 / 94; Pulse 76; Resp 14; Pulse Ox 99% on R/A; vg1 13:26 BP 144 / 88; Pulse 70; Resp 14; Pulse Ox 100% on R/A; vg1 11:24 Body Mass Index 31.75 (97.52 kg, 175.26 cm) ED Course: 11:17 Patient arrived in ED. mr 11:25 Triage completed. ss 11:25 Arm band placed on right wrist. ss 11:49 Singh Harris NP is PHCP. pm1 11:49 Juany Valle MD is Attending Physician. pm1 11:59 Rosie Jordan, ERIC is Primary Nurse. vg1 12:20 Initial lab(s) drawn, by tx, sent to lab. Inserted saline lock: 20 gauge in right vg1 antecubital area, using aseptic technique. Blood collected. 12:31 Patient has correct armband on for positive identification. Bed in low position. Call 1 light in reach. Side rails up X 1. 13:26 No provider procedures requiring assistance completed. IV discontinued, intact, vg1 bleeding controlled, No redness/swelling at site. Pressure dressing applied. Administered Medications: 12: Drug: morphine 4 mg {Note: rass0.} Route: IVP; Site: right antecubital; vg1 13:27 Follow up: Response: Pain is decreased vg1 12: Drug: Pepcid 20 mg Route: IVP; Site: right antecubital; vg1 13:27 Follow up: Response: No adverse reaction vg1 12: Drug: Zofran (Ondansetron) 4 mg Route: IVP; Site: right antecubital; vg1 13: Follow up: Response: No adverse reaction vg1 : Drug: NS 0.9% 1000 ml Route: IV; Rate: 1000 ml; Site: right antecubital; vg1 13: Follow up: IV Status: Completed infusion; IV Intake: 1000ml vg1 Intake: 13: IV: 1000ml; Total: 1000ml. vg1 Outcome: 13:04 Discharge ordered by . pm1 13: Discharged to home ambulatory. vg1 13: Condition: stable 13: Discharge instructions given to patient, Instructed on discharge instructions, follow up and referral plans. medication usage, Demonstrated understanding of instructions, follow-up care, medications, Prescriptions given X 3. 13:27 Patient left the ED. vg1 Signatures: Sofía Cherry Shelby, RN RN Singh Hernandez NP ADMINISTRATIVE TECHNICIAN pm1 Rosie Jordan RN RN vg1
[2020-10-05 13:33] VITALS: TEMP 97.9
[2020-10-05 13:36] VITALS: BP 144/88; O2SAT 100
== END 2020-10-05 13:27 | disposition home or self-care (01) ==
LOC: ER 11:15
DX: K86.1 Other chronic pancreatitis (principal)
CPT/HCPCS: 96361; 85025; 80048; 36415; 80076; 83690; 96375; 96374; 99284; J7030; J2405

== ENCOUNTER 2020-10-17 07:18 | Day surgery (SDC) | payer OTHER ==
[2020-10-17] MEDS ORDERED: NA CHLORIDE 0.9% 1,000 ML ONE (07:39)
[2020-10-17] MEDS ORDERED: CEFAZOLIN/SWI 1gm 1 GM/10 ML SYR ONE (07:39)
[2020-10-17] MEDS ORDERED: INSULIN -REGULAR HUMAN 50 UNIT/0.5 ML ML ONE ×3 (07:48→10:30)
[2020-10-17] MEDS ORDERED: SUCCINYLCHOLINE 20 MG/ML (10 ML) IV ONE (07:56)
[2020-10-17] MEDS ORDERED: LIDOCAINE 1% W/EPI 1:100,000 MDV 20 ML VIAL ONE (08:21)
[2020-10-17] MEDS ORDERED: BUPIVACA 0.25%/EPI 0.0005% MDV 50 ML VIAL ONE (08:21)
[2020-10-17] MEDS ORDERED: propofoL 200 MG/20 ML VIAL IV ONE (09:36)
[2020-10-17] MEDS ORDERED: FENTANYL CITR 100 MCG/2 ML ONE (09:36)
[2020-10-17] MEDS ORDERED: MIDAZOLAM HCL 2 MG/2 ML INJ ONE (09:36)
[2020-10-17] MEDS ORDERED: LIDOCAINE 1% MPF 30 ML VIAL ONE (09:36)
[2020-10-17] MEDS ORDERED: ROCURONIUM 50 MG/5 ML VIAL IV ONE (09:36)
[2020-10-17] MEDS ORDERED: ONDANSETRON 4 MG/2 ML VIAL ONE ×2 (09:36→10:49)
[2020-10-17] MEDS ORDERED: Phenylephrine HCl 10 MG/ML 1 ML VIAL ONE (09:37)
[2020-10-17] MEDS ORDERED: NS 0.9% VIAL 10 ML ONE ×2 (09:38→11:57)
[2020-10-17] MEDS: HYDROMORPHONE HCL 1 MG/ML INJ ONE ×2 (10:25→10:30)
[2020-10-17] MEDS ORDERED: MEPERIDINE HCL 25 MG/ML SYR ONE (10:49)
--- NOTE | 2020-10-17 11:02 | P.BOP ---
Preoperative diagnosis: left true vocal lesion, history tobacco use Postoperative diagnosis: same Primary procedure: direct laryngoscopy with telescope and biopsy Terrapin Fisher: NONE,NONE Estimated blood loss: <5ml Specimen: left True Vocal Fold lesion Findings: round, pink mass Anesthesia: General Implants: none Fluids & blood products: 550ml crystalloid Transferred to: Recovery Room Condition: Good
[2020-10-17 11:13] VITALS: TEMP 97
[2020-10-17] MEDS ORDERED: TRAMADOL HCL 50 MG TAB ONE (11:37)
[2020-10-17 12:45] VITALS: BP 131/78; O2SAT 98
--- NOTE | 2020-10-17 23:49 | OP ---
Date of Procedure: 10/17/2020 Surgeon: Brittani Castro MD Mineral Economist: None. 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 Postoperative Diagnosis: Left second branchial cleft cyst. Procedure: Open excision of branchial cleft cyst. Indication For Procedure: Mr. Patrick presented with a slowly enlarging left cystic anterior neck mass which was clinically consistent with a branchial cleft cyst. He underwent therapeutic and diagnostic aspiration which was benign and consistent with a cyst without any evidence for malignancy. The pat ient experienced early reaccumulation of the cyst fluid and we discussed surgical options and the pat ient finally elected for therapeutic excision. The risks, benefits, and alternatives to the procedur e were discussed with the patient who agreed to proceed. Description Of Procedure: The patient was brought to the operating room. He was placed under genera l anesthesia via oral endotracheal tube. His taveras and upper neck were shaved with clippers. A shou lder roll was placed. The neck was extended and supported. The neck was examined and findings were consistent with a second branchial cleft cyst, which was approximately 6 to 7 cm in diameter, soft, w ithout any evidence of associated infection. The skin was cleaned with alcohol and the planned incis ion was designed within an existing horizontal neck crease. The planned incision was injected with 4 mL of 0.25% bupivacaine with epinephrine. The neck was then prepped and draped in the standard ster ile fashion. A 5 cm incision was made through the skin and subcutaneous tissues using a 15-blade sca lpel. The Bovie electrocautery was then used to divide the subcutaneous tissues and provide hemostas is. The platysma muscle was encountered, and divided using the ligature. After elevating the platys ma, the cyst wall was easily identified. Blunt dissection was carried out along the cyst wall circum ferentially, elevating it away from the sternocleidomastoid muscle posteriorly, away from the submand ibular gland anteriorly. The cyst was elevated from an inferior to superior dissection and carefully dissected from the underlying tissues. The internal jugular vein was identified and the cyst was ca refully elevated using a blunt dissection and ligature in order to mobilize the mass. The superior a spect was then dissected again with blunt dissection and ligature. The cyst appeared to be tracking somewhat superiorly and posteriorly and tucked underneath the tail of the parotid. Final attachments were then divided and the cyst was removed intact from the surgical field. Photodocumentation of th e specimen was collected for the patient's outpatient medical chart. The surgical bed was then caref ully inspected and irrigated with sterile saline. Small areas of oozing were cauterized or treated w ith the LigaSure to ensure hemostasis. After further evaluation, decision was made to forego placeme nt of a drain and the incision was closed in a layered fashion as follows: The platysma was closed i n an interrupted fashion using 4-0 Vicryl. The skin was closed in a subcuticular fashion using Monoc ryl suture and Dermabond was applied following suture closure of the wound. The remainder of the ski n was cleaned and dried from Betadine. The patient was returned to care of anesthesia for awakening and extubation in the operating room, which proceeded without difficulty. Complications: None. Estimated Blood Loss: Less than 10 mL. Implants: None. Disposition: The patient will be discharged home later today in the care of his family and follow up with Dr. Castro's office in 10 days for evaluation of healing and for discussion of pathology. CATHERINE/YUDY Voice ID: [id number] Report ID: [id number]
== END 2020-10-17 12:10 | disposition home or self-care (01) ==
LOC: OR 07:18
PROVIDERS: ATTEND Otolaryngology
PROC: 0JB50ZZ Excision of Left Neck Subcutaneous Tissue and Fascia, Open Approach (ICD-10-PCS; principal; 2020-10-17 08:30)
DX: Q18.0 Sinus, fistula and cyst of branchial cleft (principal); E66.3 Overweight; Z72.0 Tobacco use; Z20.822 Contact with and (suspected) exposure to COVID-19
CPT/HCPCS: 82947; 88304; 88305; J0330; J0690; J1170; J2175; J2250; J2370; J2405; J2704; J3010; J7030; U0002

== ENCOUNTER 2020-10-22 07:50 | Emergency (ER) | payer SELFPAY ==
--- NOTE | 2020-10-22 12:05 | ER ---
Nurse's Notes [facility] Name: Jmienez Patrick Age: 25 yrs Sex: Male : 1995 Arrival Date: 10/22/2020 Time: 07:52 Bed External Waiting Private MD: Diagnosis: Presentation: 10/22 08:01 Chief complaint: Patient states: "I had neck surgery Tuesday and it still hurts so bad. ss I can't eat.". Coronavirus screen: Client denies travel out of the [place] in the last 14 days. Ebola Screen: Patient denies exposure to infectious person. Patient denies travel to an Ebola-affected area in the 21 days before illness onset. Initial Sepsis Screen: Does the patient meet any 2 criteria? No. Patient's initial sepsis screen is negative. Does the patient have a suspected source of infection? No. Patient's initial sepsis screen is negative. Risk Assessment: Do you want to hurt yourself or someone else? Patient reports no desire to harm self or others. Onset of symptoms was October 16, 2020. 08:01 Method Of Arrival: Ambulatory 08:01 Acuity: MOSES 3 ss Historical: - Allergies: 08:04 NKA; ss - PMHx: 08:04 Chronic Pancreatitis; Diabetes - IDDM; ss - PSHx: 08:04 Cholecystectomy; pancreatic stents x 2; ss - Immunization history:: Adult Immunizations unknown. - Social history:: Smoking status: Patient reports the use of cigarette tobacco products, smokes one-half pack cigarettes per day. Vital Signs: 08:01 BP 131 / 83; Pulse 107; Resp 15; Temp 98.1(TE); Pulse Ox 100% on R/A; Weight 97.52 kg; ss Height 5 ft. 9 in. (175.26 cm); Pain 6/10; 08:01 Body Mass Index 31.75 (97.52 kg, 175.26 cm) ED Course: 07:52 Patient arrived in ED. rg4 08:03 Triage completed. 08:04 Arm band placed on right wrist. Administered Medications: No medications were administered Outcome: 12:04 Eloped from waiting room. 12:06 Patient left the ED. Signatures: Mikaela Vasquez RN RN Nilda Jordan rg4
[2020-10-22 12:09] VITALS: BP 131/83; TEMP 98.1; O2SAT 100
== END 2020-10-22 12:06 | disposition left against medical advice (07) ==
LOC: ER 07:50
DX: M54.2 Cervicalgia (principal); Z98.890 Other specified postprocedural states; Z53.21 Procedure and treatment not carried out due to patient leaving prior to being seen by health care provider
CPT/HCPCS: 99281

== ENCOUNTER 2020-11-02 10:51 | Emergency (ER) | payer OTHER ==
--- OUTSIDE RECORDS SUMMARY | 2020-11-02 10:54 | XMS REPORT | Continuity of Care Document ---
:1995 Author Organization [facility] t Address [address] [place] [address] [address] [place] [id number] Care Team Providers Name Role Phone Unavailable Unavailable Unavailable Problems This patient has no known problems. Allergies, Adverse Reactions, Alerts This patient has no known allergies or adverse reactions. Medications This patient has no known medications. Procedures This patient has no known procedures. Results This patient has no known results.
[2020-11-02 12:12] LABS: Absolute Lymphocytes (CBC) 2.2 K/uL (0.7-4.9); Basophils % 0.9 % (0-1.3); Hematocrit 44.1 % (39.6-49.0); Lymphocytes % 29.3 % (15.3-44.8); MPV 9.3 fL (7.6-11.3); RBC Red Blood Cell Count 5.17 M/uL (4.33-5.43)
[2020-11-02] MEDS ORDERED: MORPHINE 4 MG/ML SYR ONE ×2 (12:23→13:43)
[2020-11-02] MEDS ORDERED: ONDANSETRON 4 MG/2 ML VIAL ONE (12:23)
[2020-11-02] MEDS ORDERED: FAMOTIDINE 20 MG/2 ML VIAL IV ONE (12:23)
[2020-11-02] MEDS ORDERED: NA CHLORIDE 0.9% 1,000 ML ONE ×2 (12:23→13:33)
[2020-11-02 12:31] LABS: ALT/SGPT 46 U/L (12-78); AST/SGOT 19 U/L (15-37); Albumin 3.5 g/dL (3.4-5.0); Alkaline Phosphatase 194 U/L (45-117); BUN Blood Urea Nitrogen 8 mg/dL (7-18); Bicarbonate 25 mmol/L (21-32); Bilirubin Direct 0.1 mg/dL (0-0.2); Bilirubin Total 0.3 mg/dL (0.2-1.0); Lipase 49 U/L (73-393); Potassium 4.5 mmol/L (3.5-5.1); Protein, Total 7.4 g/dL (6.4-8.2); Sodium Level 130 mmol/L (136-145)
[2020-11-02 12:34] LABS: Glucose Level 655 mg/dL (74-106)
[2020-11-02] MEDS ORDERED: INSULIN -REGULAR HUMAN 50 UNIT/0.5 ML ML ONE (13:36)
--- NOTE | 2020-11-02 14:51 | EDPHYS ---
Physician Documentation [facility] Name: Jimenez Patrick Age: 25 yrs Sex: Male : 1995 Arrival Date: 11/02/2020 Time: 10:57 Bed 16 Private MD: ED Physician Luis Laura HPI: 11/02 12:45 This 25 yrs old Male presents to ER via Ambulatory with complaints of pm1 Abdominal Pain - Chronic Pancreatitis Flare Up. 12:45 The patient presents with abdominal pain in the left upper quadrant. Onset: The pm1 symptoms/episode began/occurred today. The symptoms do not radiate. Associated signs and symptoms: Pertinent positives: nausea, Pertinent negatives: chest pain, diarrhea, dysuria, fever, shortness of breath, vomiting. The symptoms are described as achy, sharp. Modifying factors: The symptoms are alleviated by nothing, the symptoms are aggravated by nothing. Severity of pain: in the emergency department the pain is actually worse. The patient has experienced similar episodes in the past, chronically. It is unknown whether or not the patient has recently seen a physician. Historical: - Allergies: 11:08 NKA; sv - PMHx: 11:08 Chronic Pancreatitis; Diabetes - IDDM; sv - PSHx: 11:08 Cholecystectomy; pancreatic stents x 2; sv - Immunization history:: Adult Immunizations up to date. - Social history:: Smoking status: Patient denies any tobacco usage or history of. Patient/guardian denies using alcohol. ROS: 12:45 Constitutional: Negative for fever, chills, and weight loss, Cardiovascular: Negative pm1 for chest pain, palpitations, and edema, Respiratory: Negative for shortness of breath, cough, wheezing, and pleuritic chest pain. 12:45 Back: Negative for injury and pain, : Negative for injury, bleeding, discharge, and swelling, MS/Extremity: Negative for injury and deformity, Skin: Negative for injury, rash, and discoloration, Neuro: Negative for headache, weakness, numbness, tingling, and seizure. 12:45 Abdomen/GI: Positive for abdominal pain, nausea, Negative for vomiting, diarrhea. Exam: 12:45 Constitutional: This is a well developed, well nourished patient who is awake, alert, pm1 and in no acute distress. Head/Face: Normocephalic, atraumatic. 12:45 Back: No spinal tenderness. No costovertebral tenderness. Full range of motion. Skin: Warm, dry with normal turgor. Normal color with no rashes, no lesions, and no evidence of cellulitis. MS/ Extremity: Pulses equal, no cyanosis. Neurovascular intact. Full, normal range of motion. 12:45 Cardiovascular: Rate: normal, Rhythm: regular, Pulses: no pulse deficits are appreciated. 12:45 Respiratory: Exam negative for acute changes, respiratory distress, shortness of breath. 12:45 Abdomen/GI: Inspection: abdomen appears normal, Palpation: soft, in all quadrants, mild abdominal tenderness, in the suprapubic area. 12:45 Neuro: Exam negative for acute changes, Orientation: is normal, Mentation: is normal, Motor: is normal, moves all fours. Vital Signs: 11:08 BP 152 / 108; Pulse 90; Resp 16; Temp 98.2; Pulse Ox 100% ; Weight 97.52 kg; Height 5 sv ft. 9 in. (175.26 cm); Pain 6/10; 11:08 Body Mass Index 31.75 (97.52 kg, 175.26 cm) sv MDM: 11:41 Patient medically screened. [facility] 13:09 Data reviewed: vital signs. Data interpreted: Pulse oximetry: on room air is 100 %. pm1 Interpretation: normal. 13:44 ED course: Patient forgot to take his insulin this AM. pm1 14:50 Counseling: I had a detailed discussion with the patient and/or guardian regarding: the pm1 historical points, exam findings, and any diagnostic results supporting the discharge/admit diagnosis, lab results, radiology results, the need for outpatient follow up, to return to the emergency department if symptoms worsen or persist or if there are any questions or concerns that arise at home. 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 Tramadol prescriptions for 10/19, 10/23, and 10/27 pm1 prescribed with 18 pills each. Will not give the patient a Tramadol prescription. 11/02 11:34 Order name: Basic Metabolic Panel; Complete Time: 12:45 pm1 11/02 11:34 Order name: CBC with Diff; Complete Time: 12:17 pm1 11/02 11:34 Order name: Hepatic Function; Complete Time: 12:45 pm1 11/02 11:34 Order name: Lipase; Complete Time: 12:45 pm1 11/02 15:01 Order name: Glucose, Ancillary Testing; Complete Time: 15:12 EDMS 11/02 11:34 Order name: IV Saline Lock; Complete Time: 12:00 pm1 11/02 11:34 Order name: Labs collected and sent; Complete Time: 12:00 pm1 Administered Medications: 12:10 Drug: Zofran (Ondansetron) 4 mg Route: IVP; Site: right antecubital; dm14 14:57 Follow up: Response: No adverse reaction dm14 12:10 Drug: NS 0.9% 1000 ml Route: IV; Rate: 1000 ml; Site: right antecubital; dm14 14:57 Follow up: IV Status: Completed infusion; IV Intake: 1000ml dm14 12:14 Drug: morphine 4 mg Route: IVP; Site: right antecubital; dm14 14:56 Follow up: Response: No adverse reaction; Pain is decreased dm14 12:16 Drug: Pepcid 20 mg Route: IVP; Site: right antecubital; dm14 14:56 Follow up: Response: No adverse reaction dm14 13:25 Drug: NS 0.9% 1000 ml Route: IV; Rate: 1000 ml; Site: right antecubital; dm14 14:58 Follow up: IV Status: Completed infusion; IV Intake: 1000ml dm14 13:25 Drug: Insulin Regular Human 10 units {Co-Signature: hb (Nivia Langford RN).} Route: dm14 IVP; Site: right antecubital; 14:58 Follow up: Response: No adverse reaction dm14 13:26 Drug: morphine 4 mg Route: IVP; Site: right antecubital; dm14 14:54 Follow up: Response: No adverse reaction; Pain is decreased dm14 Disposition: 11/03 06:19 Co-signature as Attending Physician, Luis Laura MD I agree with the assessment and salbador plan of care. Disposition: 11/02/20 14:51 Discharged to Home. Impression: Other chronic pancreatitis, Hyperglycemia, unspecified. - Condition is Stable. - Discharge Instructions: Abdominal Pain, Adult, Hyperglycemia, Blood Glucose Monitoring, Adult. - Prescriptions for Zofran ODT 4 mg Oral tablet,disintegrating - place 1 tablet by TRANSLINGUAL route every 8 hours As needed; 12 tablet. Bentyl 20 mg Oral Tablet - take 1 tablet by ORAL route every 6 hours As needed; 20 tablet. Tramadol 50 mg Oral Tablet - take 1 tablet by ORAL route every 8 hours as needed; 12 tablet. - Medication Reconciliation Form, Thank You Letter, Antibiotic Education, Prescription Opioid Use form. - Follow up: Emergency Department; When: As needed; Reason: Worsening of condition. Follow up: Private Physician; When: 2 - 3 days; Reason: Recheck today's complaints, Continuance of care, Re-evaluation by your physician. - Problem is new. - Symptoms have improved. Signatures: Dispatcher [employer] EDMS Brittani Berkowitz RN RN Luis Kraus MD MD cha Smirch, Shelby, RN RN ss Singh Harris NP CAGE CASHIER pm1 Elizabeth Shen RN RN dm14 Nivia Langford RN Corrections: (The following items were deleted from the chart) 11/02 14:53 14:51 11/02/2020 14:51 Discharged to Home. Impression: Unspecified abdominal pain; pm1 Hyperglycemia, unspecified. Condition is Stable. Forms are Medication Reconciliation Form, Thank You Letter, Antibiotic Education, Prescription Opioid Use. Follow up: Emergency Department; When: As needed; Reason: Worsening of condition. Follow up: Private Physician; When: 2 - 3 days; Reason: Recheck today's complaints, Continuance of care, Re-evaluation by your physician. Problem is new. Symptoms have improved. pm1 15:24 14:53 11/02/2020 14:51 Discharged to Home. Impression: Other chronic pancreatitis; ss Hyperglycemia, unspecified. Condition is Stable. Discharge Instructions: Abdominal Pain, Adult, Hyperglycemia, Blood Glucose Monitoring, Adult. Prescriptions for Zofran ODT 4 mg Oral tablet,disintegrating - place 1 tablet by TRANSLINGUAL route every 8 hours As needed; 12 tablet, Bentyl 20 mg Oral Tablet - take 1 tablet by ORAL route every 6 hours As needed; 20 tablet, Tramadol 50 mg Oral Tablet - take 1 tablet by ORAL route every 8 hours as needed; 12 tablet. and Forms are Medication Reconciliation Form, Thank You Letter, Antibiotic Education, Prescription Opioid Use. Follow up: Emergency Department; When: As needed; Reason: Worsening of condition. Follow up: Private Physician; When: 2 - 3 days; Reason: Recheck today's complaints, Continuance of care, Re-evaluation by your physician. Problem is new. Symptoms have improved. pm1
--- NOTE | 2020-11-02 14:51 | ER ---
Nurse's Notes [facility] Name: Jimenez Patrick Age: 25 yrs Sex: Male : 1995 Arrival Date: 11/02/2020 Time: 10:57 Bed 16 Private MD: Diagnosis: Hyperglycemia, unspecified;Other chronic pancreatitis Presentation: 11/02 11:07 Chief complaint: Patient states: "I have chronic pancreatitis and I'm having a flare sv up. Started this morning." Ibuprofen taken this morning. Coronavirus screen: Client denies travel out of the [place] in the last 14 days. At this time, the client does not indicate any symptoms associated with coronavirus-19. Ebola Screen: No symptoms or risks identified at this time. Risk Assessment: Do you want to hurt yourself or someone else? Patient reports no desire to harm self or others. Onset of symptoms was November 02, 2020. 11:07 Method Of Arrival: Ambulatory sv 11:07 Acuity: MOSES 3 sv 11:08 Initial Sepsis Screen: Does the patient meet any 2 criteria? No. Patient's initial sv sepsis screen is negative. Does the patient have a suspected source of infection? No. Patient's initial sepsis screen is negative. Historical: - Allergies: 11:08 NKA; sv - PMHx: 11:08 Chronic Pancreatitis; Diabetes - IDDM; sv - PSHx: 11:08 Cholecystectomy; pancreatic stents x 2; sv - Immunization history:: Adult Immunizations up to date. - Social history:: Smoking status: Patient denies any tobacco usage or history of. Patient/guardian denies using alcohol. Screenin:54 Abuse screen: Denies threats or abuse. Denies injuries from another. Nutritional dm14 screening: No deficits noted. Tuberculosis screening: No symptoms or risk factors identified. Fall Risk None identified. Vital Signs: 11:08 BP 152 / 108; Pulse 90; Resp 16; Temp 98.2; Pulse Ox 100% ; Weight 97.52 kg; Height 5 sv ft. 9 in. (175.26 cm); Pain 6/10; 11:08 Body Mass Index 31.75 (97.52 kg, 175.26 cm) sv ED Course: 10:57 Patient arrived in ED. ds1 11:07 Arm band placed on. sv 11:08 Triage completed. sv 11:33 Marinas, Singh, MANAGEMENT TECH is PHCP. pm1 11:33 Luis Laura MD is Attending Physician. pm1 11:45 Elizabeth Shen RN is Primary Nurse. dm14 14:54 Patient has correct armband on for positive identification. Bed in low position. Call dm14 light in reach. 14:54 No provider procedures requiring assistance completed. dm14 Administered Medications: 12:10 Drug: Zofran (Ondansetron) 4 mg Route: IVP; Site: right antecubital; dm14 14:57 Follow up: Response: No adverse reaction dm14 12:10 Drug: NS 0.9% 1000 ml Route: IV; Rate: 1000 ml; Site: right antecubital; dm14 14:57 Follow up: IV Status: Completed infusion; IV Intake: 1000ml dm14 12:14 Drug: morphine 4 mg Route: IVP; Site: right antecubital; dm14 14:56 Follow up: Response: No adverse reaction; Pain is decreased dm14 12:16 Drug: Pepcid 20 mg Route: IVP; Site: right antecubital; dm14 14:56 Follow up: Response: No adverse reaction dm14 13:25 Drug: NS 0.9% 1000 ml Route: IV; Rate: 1000 ml; Site: right antecubital; dm14 14:58 Follow up: IV Status: Completed infusion; IV Intake: 1000ml dm14 13:25 Drug: Insulin Regular Human 10 units {Co-Signature: hb (Nivia Langford RN).} Route: dm14 IVP; Site: right antecubital; 14:58 Follow up: Response: No adverse reaction dm14 13:26 Drug: morphine 4 mg Route: IVP; Site: right antecubital; dm14 14:54 Follow up: Response: No adverse reaction; Pain is decreased dm14 Intake: 14:57 IV: 1000ml; Total: 1000ml. dm14 14:58 IV: 1000ml; Total: 2000ml. dm14 Outcome: 14:51 Discharge ordered by . pm1 15:24 Patient left the ED. Signatures: Brittani Berkowitz RN RN sv Sanford, Demi ds1 Mikaela Vasquez RN RN Singh Harris NP MANAGEMENT TECH pm1 Elizabeth Shen RN RN dm14 Nivia Langford RN hb Corrections: (The following items were deleted from the chart) 11:10 11:07 Chief complaint: Patient states: "I have chronic pancreatitis and I'm having a sv flare up. Started this morning." sv
[2020-11-02 15:37] VITALS: BP 152/108; TEMP 98.2; O2SAT 100
== END 2020-11-02 15:24 | disposition home or self-care (01) ==
LOC: ER 10:51
DX: K86.1 Other chronic pancreatitis (principal); E11.65 Type 2 diabetes mellitus with hyperglycemia
CPT/HCPCS: 96361; 85025; 80048; 36415; 82947; 80076; 83690; 96375; 96374; 99282; J7030 ×2; J2405

== ENCOUNTER 2021-06-01 19:11 | Emergency (ER) | payer OTHER ==
[2021-06-01 20:14] LABS: Basophils % 0.8 % (0-1.3); Hematocrit 42.4 % (39.6-49.0); Lymphocytes % 24.9 % (15.3-44.8); RBC Red Blood Cell Count 4.96 M/uL (4.33-5.43)
[2021-06-01 20:29] LABS: Urine Blood Negative (Negative); Urine Glucose 2+ (Negative); Urine Protein Negative (Negative); Urine Specific Gravity 1.025 (1.005-1.030)
[2021-06-01 20:32] LABS: Albumin 3.9 g/dL (3.4-5.0); Bilirubin Direct 0.2 mg/dL (0-0.2); Bilirubin Total 0.8 mg/dL (0.2-1.0); Potassium 3.5 mmol/L (3.5-5.1); Protein, Total 6.9 g/dL (6.4-8.2)
--- NOTE | 2021-06-01 20:38 | RAD REPORT ---
EXAM DESCRIPTION: CT - Stone Protocol - 06/01/2021 8:31 pm CLINICAL HISTORY: Flank pain. FLANK PAIN COMPARISON: <Comparisons> TECHNIQUE: Axial images were obtained without oral or IV contrast. Lack of contrast limits solid org an and vascular assessment. The [id number] spans the entirety of the system partially obscuring uppermost abdomen and lung bases. Coronal reformatted images were obtained and reviewed. All CT scans are performed using dose optimization technique as appropriate and may include automated exposure control or mA/KV adjustment according to patient size. FINDINGS: The lower lung rand are clear. Cholecystectomy clips. Imaged portions of the liver and spleen show no suspicious findings on non-contrast imaging. The panc reas demonstrates multiple calcifications compatible with chronic pancreatitis. The Adrenal glands ar e normal. No pathologic lymphadenopathy in the abdomen or pelvis. No urinary tract stones or obstructive uropathy. No bowel obstruction, free air, free fluid or abscess. Normal appendix noted. No significant bony abnormality. IMPRESSION: No urinary tract stones or obstructive uropathy. Chronic pancreatitis.
[2021-06-01] MEDS ORDERED: NA CHLORIDE 0.9% 1,000 ML ONE ×2 (20:52→21:13)
[2021-06-01 21:02] LABS: Urine Mucus 3+ /HPF (NONE SEEN)
[2021-06-01 21:03] LABS: Urine Bacteria <20 /HPF (NONE SEEN); Urine RBC <5 /HPF (NONE SEEN)
[2021-06-01] MEDS ORDERED: INSULIN -REGULAR HUMAN 50 UNIT/0.5 ML ML ONE (21:13)
[2021-06-01] MEDS ORDERED: KETOROLAC 30 MG/ML INJ ONE (21:13)
[2021-06-01] MEDS ORDERED: D50W 25 GM/50 ML SYRINGE IV ONE (22:54)
--- NOTE | 2021-06-02 00:22 | ER ---
Nurse's Notes [facility] Name: Jimenez Patrick Age: 25 yrs Sex: Male : 1995 Arrival Date: 06/01/2021 Time: 19:12 Bed 15 Private MD: Diagnosis: Low back pain;Diabetes mellitus due to underlying condition with hyperglycemia Presentation: 06/01 19:30 Chief complaint: Patient states: Pt states he has been having right flank pain for 2 wg weeks. States the pain hasn't changed and decided to come get checked out. Pt initially thought it was from drinking too much soda. Pt admits to having a hx of pancreatitis but states this doesn't feel like that. Pt states he occasionally gets SOB on exertion. Not SOB at this time. Pt denies any other symptoms. Coronavirus screen: Vaccine status: Patient reports being unvaccinated. Client denies travel out of the [place] in the last 14 days. At this time, the client does not indicate any symptoms associated with coronavirus-19. Ebola Screen: Patient negative for fever greater than or equal to 101.5 degrees Fahrenheit, and additional compatible Ebola Virus Disease symptoms Patient denies exposure to infectious person. Patient denies travel to an Ebola-affected area in the 21 days before illness onset. Initial Sepsis Screen: Does the patient meet any 2 criteria? No. Patient's initial sepsis screen is negative. Does the patient have a suspected source of infection? No. Patient's initial sepsis screen is negative. Risk Assessment: Do you want to hurt yourself or someone else? Patient reports no desire to harm self or others. 19:30 Method Of Arrival: Ambulatory 19:30 Acuity: MOSES 3 19:32 Onset of symptoms was May 10, 2021. wg 22:01 Note POC glucose 68. Pt denies any symptoms. Pt given sandwich and juice. df1 22:30 Note POC glucose 46. Pt states feeling jack. Provider notified. Orders received. Pt ate df1 entire sandwich and juice. 22:30 Note Pt states feeling better. Up to restroom with steady gait. df1 23:12 Note POC glucose 126. Pt given another sandwich and juice as per provider. Pt to be df1 observed in ER. 06/02 00:07 Note POC glucose 177. Pt states no pain/N/V. Provider notified. df1 Triage Assessment: 06/01 19:33 General: Appears comfortable, well groomed, well developed, Behavior is calm, wg cooperative, appropriate for age. Pain: Complains of pain in Right flank. Historical: - Allergies: 19:33 NKA; wg - Home Meds: 20:58 Insulin: Novolin R Sub-Q 60 units twice a day [Active]; df1 - PMHx: 19:33 Diabetes - IDDM; Chronic Pancreatitis; wg - PSHx: 20:58 Cholecystectomy; stents x 2 in pancreas; df1 - Immunization history:: Client reports having NOT received the Covid vaccine. - Social history:: Smoking status: Patient reports the use of cigarette tobacco products, denies chronic smoking, but will smoke occasionally, Patient uses alcohol, occasionally. Screenin:58 Abuse screen: Denies threats or abuse. Nutritional screening: No deficits noted. df1 Tuberculosis screening: No symptoms or risk factors identified. Fall Risk None identified. Vital Signs: 19:30 BP 137 / 85; Pulse 114; Resp 18; Temp 99.5; Pulse Ox 100% on R/A; Weight 88.45 kg; wg Height 5 ft. 9 in. (175.26 cm); Pain 6/10; 20:57 BP 133 / 88; Pulse 75; Resp 18; Pulse Ox 100% on R/A; df1 22:00 BP 135 / 82; Pulse 74; Resp 18; Pulse Ox 100% on R/A; df1 22:44 BP 137 / 83; Pulse 72; Resp 18; Pulse Ox 100% on R/A; df1 19:30 Body Mass Index 28.80 (88.45 kg, 175.26 cm) ED Course: 19:12 Patient arrived in ED. am2 19:32 Triage completed. wg 19:34 Arm band placed on left wrist. wg 19:44 Luis Ramirez PA is PHCP. cp 19:44 Juany Valle MD is Attending Physician. cp 19:57 Inserted saline lock: 20 gauge in right antecubital area, using aseptic technique. dh4 Blood collected. 20:30 Bri Bray is Primary Nurse. df1 20:32 CT Stone Protocol In Process Unspecified. EDMS 20:58 Patient has correct armband on for positive identification. Placed in gown. Bed in low df1 position. Call light in reach. Side rails up X 1. 20:58 No provider procedures requiring assistance completed. df1 06/02 00:32 IV discontinued, intact. df1 Administered Medications: 06/01 20:41 Drug: NS 0.9% 1000 ml Route: IV; Rate: 1 bolus; Site: right antecubital; df1 22:32 Follow up: IV Status: Completed infusion; IV Intake: 1000ml df1 22:33 Follow up: IV Status: Completed infusion; IV Intake: 1000ml df1 20:55 Drug: Insulin Regular Human 10 units {Co-Signature: ms4 (Jasmyne Samuel RN).} Route: df1 IVP; Site: right antecubital; 22:33 Follow up: Response: No adverse reaction df1 20:55 Drug: Ketorolac 15 mg Route: IVP; Site: right antecubital; df1 22:34 Follow up: Response: Pain is decreased df1 20:57 Drug: NS 0.9% 1000 ml Route: IV; Rate: 1 bolus; Site: right antecubital; df1 22:32 Drug: D50W 50 ml Route: IVP; Site: right antecubital; df1 22:34 Follow up: Response: No adverse reaction df1 Intake: 22:32 IV: 1000ml; Total: 1000ml. df1 22:33 IV: 1000ml; Total: 2000ml. df1 Outcome: 06/02 00:22 Discharge ordered by . juvenal 00:33 Patient left the ED. df1 00:37 Discharged to home ambulatory. df1 00:37 Condition: good 00:37 Condition: good 00:37 Discharge instructions given to patient, Instructed on discharge instructions, follow up and referral plans. medication usage, Demonstrated understanding of instructions, follow-up care, medications, Prescriptions given X 3. Signatures: Dispatcher [employer] EDMS Gerber Laguna PA PA jmm Page, Corey, PA PA cp Moreno, Amanda am2 Huhn, Donald 4 Jt Casarez RN wg Furlich, Dawn df1 Jasmyne Samuel RN ms4 Corrections: (The following items were deleted from the chart) 06/01 19:35 19:30 Chief complaint: Patient states: Pt states he has been having right flank pain wg for 2 weeks. States the pain hasn't changed and decided to come get checked out. Pt initially thought it was from drinking too much soda. Pt admits to having a hx of pancreatitis but states this doesn't feel like that. Pt denies any other symptoms. wg 19:38 19:30 BP 137 / 85; Pulse 114bpm; Resp 18bpm; Pulse Ox 100% RA; Temp 99.1F; 88.45 kg; wg Height 5 ft. 9 in.; BMI: 28.8; Pain 6/10; wg 21:01 19:33 Home Meds: Insulin: Humulin 70/30 Sub-Q; wg df1 06/02 00:37 00:32 Discharged to home via wheelchair, df1 df1 00:37 00:32 Condition: stable df1 df1 00:37 00:32 Discharge instructions given to patient, family, Instructed on discharge df1 instructions, follow up and referral plans. medication usage, Demonstrated understanding of instructions, follow-up care, medications, Prescriptions given X 1, df1
--- NOTE | 2021-06-02 00:23 | EDPHYS ---
Physician Documentation [facility] Name: Jimenez Patrick Age: 25 yrs Sex: Male : 1995 Arrival Date: 06/01/2021 Time: 19:12 Bed 15 Private MD: ED Physician Juany Valle HPI: 06/01 19:40 This 25 yrs old Male presents to ER via Ambulatory with complaints of Flank cp Pain. 19:40 The patient presents with pain that is acute, with no known mechanism of injury. cp 19:40 The symptoms are located in the right mid back. Onset: The symptoms/episode cp began/occurred 2 week(s) ago. The pain does not radiate. Associated signs and symptoms: Pertinent negatives: abdominal pain, constipation, dysuria, fever, hematuria, incontinence, numbness, urinary retention, weakness. The problem was sustained from unknown cause. Modifying factors: the patient symptoms are aggravated by movement. Severity of symptoms: in the emergency department the symptoms are unchanged, despite home interventions. Patient reports history of pancreatitis but reports this pain feels different. Historical: - Allergies: 19:33 NKA; wg - Home Meds: 20:58 Insulin: Novolin R Sub-Q 60 units twice a day [Active]; df1 - PMHx: 19:33 Diabetes - IDDM; Chronic Pancreatitis; wg - PSHx: 20:58 Cholecystectomy; stents x 2 in pancreas; df1 - Immunization history:: Client reports having NOT received the Covid vaccine. - Social history:: Smoking status: Patient reports the use of cigarette tobacco products, denies chronic smoking, but will smoke occasionally, Patient uses alcohol, occasionally. ROS: 19:50 Constitutional: Negative for body aches, chills, fever, poor PO intake. cp 19:50 Eyes: Negative for injury, pain, redness, and discharge. cp 19:50 Neck: Negative for pain with movement, pain at rest, stiffness. 19:50 Cardiovascular: Negative for chest pain, palpitations. 19:50 Respiratory: Negative for cough, shortness of breath, wheezing. 19:50 Abdomen/GI: Negative for abdominal pain, nausea, vomiting, and diarrhea, constipation, anorexia, bowel incontinence. 19:50 Back: Positive for pain at rest, pain with movement, of the right mid back, Negative for injury or acute deformity, decreased range of motion. 19:50 : Negative for urinary symptoms, burning with urination, difficulty urinating, testicular pain 19:50 Neuro: Negative for altered mental status, headache, numbness, tingling, weakness. 19:50 All other systems are negative. Exam: 19:55 Constitutional: The patient appears in no acute distress, alert, awake, non-toxic, well cp developed, well nourished. 19:55 Head/Face: Normocephalic, atraumatic. cp 19:55 Eyes: Periorbital structures: appear normal, Conjunctiva: normal, no exudate, no injection, Sclera: no appreciated abnormality, Lids and lashes: appear normal, bilaterally. 19:55 ENT: External ear(s): are unremarkable, Nose: is normal, Mouth: Lips: moist, Oral mucosa: moist, Posterior pharynx: Airway: no evidence of obstruction, patent. 19:55 Neck: ROM/movement: is normal, is supple, without pain, no range of motions limitations. 19:55 Chest/axilla: Inspection: normal. 19:55 Cardiovascular: Rate: tachycardic, Rhythm: regular. 19:55 Respiratory: the patient does not display signs of respiratory distress, Respirations: normal, no use of accessory muscles, no retractions, labored breathing, is not present, Breath sounds: are clear throughout, no decreased breath sounds, no stridor, no wheezing. 19:55 Abdomen/GI: Inspection: abdomen appears normal, Bowel sounds: active, all quadrants, Palpation: abdomen is soft and non-tender, in all quadrants. 19:55 Back: pain, that is mild, of the right mid back, ROM is painful, with flexion. 19:55 Skin: cellulitis, is not appreciated, no rash present. 19:55 Neuro: Orientation: to person, place \T\ time. Mentation: is normal, Motor: moves all fours, strength is normal, Sensation: is normal. Vital Signs: 19:30 BP 137 / 85; Pulse 114; Resp 18; Temp 99.5; Pulse Ox 100% on R/A; Weight 88.45 kg; wg Height 5 ft. 9 in. (175.26 cm); Pain 6/10; 20:57 BP 133 / 88; Pulse 75; Resp 18; Pulse Ox 100% on R/A; df1 22:00 BP 135 / 82; Pulse 74; Resp 18; Pulse Ox 100% on R/A; df1 22:44 BP 137 / 83; Pulse 72; Resp 18; Pulse Ox 100% on R/A; df1 19:30 Body Mass Index 28.80 (88.45 kg, 175.26 cm) wg MDM: 19:55 Patient medically screened. cp 20:00 Differential diagnosis: Basilar Pneumonia Cholelithiasis Pyelonephritis spinal injury, cp Ureterolithiasis vertebral fracture. 22:07 Data reviewed: vital signs, nurses notes, lab test result(s), radiologic studies, CT cp scan, and as a result, I will discharge patient. 06/01 19:37 Order name: Basic Metabolic Panel; Complete Time: 20:41 06/01 20:41 Interpretation: Normal except: GLUC 310; GFR 83. 06/01 19:37 Order name: CBC with Diff; Complete Time: 20:41 06/01 19:37 Order name: Hepatic Function; Complete Time: 20:41 06/01 19:37 Order name: Lipase; Complete Time: 20:41 06/01 20:41 Interpretation: LIP 43; Reviewed. 06/01 20:03 Order name: Urine Microscopic Only; Complete Time: 21:22 06/01 21:22 Interpretation: Normal except: MUCUS 3+. 06/01 20:03 Order name: CT Stone Protocol; Complete Time: 20:41 06/01 20:29 Order name: Urine Dipstick-Ancillary; Complete Time: 20:41 EDWY 06/01 20:42 Interpretation: Normal except: UGLUC 2+; UKET 1+. 06/01 21:10 Order name: SARS-COV-2 RT PCR; Complete Time: 21:22 EDWY 06/01 22:09 Order name: Glucose, Ancillary Testing; Complete Time: 22:10 EDWY 06/01 19:37 Order name: IV Saline Lock; Complete Time: 19:57 06/01 19:37 Order name: Labs collected and sent; Complete Time: 19:57 06/01 19:37 Order name: Urine Dipstick-Ancillary (obtain specimen); Complete Time: 20:32 06/01 21:43 Order name: Accucheck Blood Glucose; Complete Time: 22:29 cp Administered Medications: 20:41 Drug: NS 0.9% 1000 ml Route: IV; Rate: 1 bolus; Site: right antecubital; df1 22:32 Follow up: IV Status: Completed infusion; IV Intake: 1000ml df1 22:33 Follow up: IV Status: Completed infusion; IV Intake: 1000ml df1 20:55 Drug: Insulin Regular Human 10 units {Co-Signature: ms4 (Jasmyne Samuel RN).} Route: df1 IVP; Site: right antecubital; 22:33 Follow up: Response: No adverse reaction df1 20:55 Drug: Ketorolac 15 mg Route: IVP; Site: right antecubital; df1 22:34 Follow up: Response: Pain is decreased df1 20:57 Drug: NS 0.9% 1000 ml Route: IV; Rate: 1 bolus; Site: right antecubital; df1 22:32 Drug: D50W 50 ml Route: IVP; Site: right antecubital; df1 22:34 Follow up: Response: No adverse reaction df1 Disposition Summary: 06/02/21 00:22 Discharge Ordered Location: Home jm Problem: new jmm Symptoms: have improved jmm Condition: Stable jmm Diagnosis - Low back pain jmm - Diabetes mellitus due to underlying condition with hyperglycemia jmm Followup: cp - With: Private Physician - When: 2 - 3 days - Reason: Recheck today's complaints Discharge Instructions: - Discharge Summary Sheet cp - Acute Back Pain, Adult cp - Blood Glucose Monitoring, Adult cp - Diabetes Mellitus and Nutrition, Adult cp - Heat Therapy cp - Back Exercises cp Forms: - Medication Reconciliation Form [facility] - Thank You Letter [facility] - Antibiotic Education [facility] - Prescription Opioid Use [facility] Prescriptions: - Lidoderm 5 % Topical adhesive patch,medicated - apply 1 patch by TOPICAL route once daily As needed; 1 box; Refills: 0, Product cp Selection Permitted - Cyclobenzaprine 10 mg Oral Tablet - take 1 tablet by ORAL route every 8 hours As needed; 20 tablet; Refills: 0, cp Product Selection Permitted - Diclofenac Sodium 75 mg Oral tablet,delayed release (DR/EC) - take 1 tablet by ORAL route 2 times per day; 20 tablet; Refills: 0, Product cp Selection Permitted Addendum: 06/05/2021 04:34 Co-signature as Attending Physician, Juany garcia a2 Signatures: Dispatcher [employer] EDMS Gerber Laguna PA PA jmm Page, Corey, PA PA cp Alzahri, Mohammad, MD MD ma2 Jt Casarez RN wg Furlich, Dawn df1 Jasmyne Samuel RN ms4 Corrections: (The following items were deleted from the chart) 06/01 20:17 19:37 CORONAVIRUS+MR.LAB.BRZ ordered. EDMS EDMS 21:01 19:33 Home Meds: Insulin: Humulin 70/30 Sub-Q; debbie df1
[2021-06-02 10:41] VITALS: TEMP 99.5; O2SAT 100
[2021-06-02 10:52] VITALS: BP 137/83
== END 2021-06-02 00:33 | disposition home or self-care (01) ==
LOC: ER 19:11
DX: E11.65 Type 2 diabetes mellitus with hyperglycemia (principal); K86.1 Other chronic pancreatitis; F17.210 Nicotine dependence, cigarettes, uncomplicated; Z79.4 Long term (current) use of insulin; Z20.822 Contact with and (suspected) exposure to COVID-19
CPT/HCPCS: 96361; 85025; 80048; 36415; 82947 ×4; 80076; 83690; 76377; 74176; 96375; 96374; 99284; U0003; J7030 ×2; 81003; 81015

== ENCOUNTER 2021-09-14 14:43 | Emergency (ER) | payer OTHER ==
--- OUTSIDE RECORDS SUMMARY | 2021-09-14 14:46 | XMS REPORT | Continuity of Care Document ---
:1995 Author Organization [facility] t Address [address] [place] [address] Care Team Providers Name Role Phone Hung ANNP Attending Clinician HUNG Attending Clinician Unavailable Doctor Unassigned, Name Attending Clinician Unavailable Payers Payer Name Policy Type Policy Number Effective Date Expiration Date S ource Problems Condition Condition Condition Status Onset Resolution Last Treating Co mments Source Name Details Category Date Date Treatment Clinician Date Obesity Obesity Disease Active Univers (BMI (BMI 8-12 ity of 30-39.9) 30-39.9) 00:00: [place] 00 Medical Branch 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 U nivers adenitis adenitis 2-31 ity of 00:00: [place] 00 Medical Branch Pancreatit Pancreatit Disease Active 2009-09 U nivers is is 2-31 ity of 00:00: [place] 00 Medical Branch Abdominal Abdominal Disease Active 2009-09 Uni vers pain pain 2-30 ity of 00:00: [place] 00 Medical Branch Other acne Other acne Disease Active U nivers 8-09 ity of 00:00: [place] 00 Medical Branch Viral Viral Disease Active Overview: Univer s warts warts 8-09 Right ity of 00:00: [id number] [place] 00 Diagnosis 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 Smoking Status Start Date Stop Date Source Unknown if ever smoked Universit y [facility] Medications Ordered Filled Start Stop Current Ordering Indication Dosage Frequency Signature Comments Components Source Medication Medication Date Date Medication? Clinician (SIG) Name Name maalox:diph 2020- No 15mL 15 mL, Uni vers enhydrAMINE 11-08 Oral, ity of :lidocaine 20:45: 20:39 ONCE, 1 Stu as 2 % viscous 00 :00 dose, Sat Med ical 1:1:1 11/08/20 at [facility] (FIRST-MOUT 1445, MARITA HWASH BLM) oral suspension 15 mL insulin 2020- No 9U 9 Units, [facility] rs regular 11-08 Slow IV ity of human 20:30: 19:39 Push, [place] (HUMULIN R) 00 :00 ONCE, 1 Medic al injection 9 dose, Sat Bra [facility] Units 11/08/20 at 1430, STAT ondansetron 2020- No 4mg 4 mg, Slow Univers (ZOFRAN 11-08 IV Push, ity of (PF)) 19:45: 18:49 ONCE, 1 [place] injection 4 00 :00 dose, Sat Med ical mg 11/08/20 at [facility] 1345, MARITA morpHINE 2020- No 4mg 4 mg, Slow Un brendan injection 4 11-08 IV Push, ity of mg 19:45: 18:49 ONCE, 1 [place] 00 :00 dose, Sat Medical 11/08/20 at [facility] 1345, STAT NaCl 0.9% 2020- No 1000mL at 999 Uni vers (NS) bolus 11-08-06 mL/hr, ity of infusion 19:30: 20:37 1,000 mL, Stu as 1,000 mL 00 :00 IV Medical Infusion, [place] ONCE, 1 dose, 11/08/20 at 1330, MARITA NaCl 0.9% 2020- No 1000mL at 999 Uni vers (NS) bolus 11-08-06 mL/hr, ity of infusion 18:30: 19:39 1,000 mL, Stu as 1,000 mL 00 :00 IV Medical Infusion, [place] ONCE, 1 dose, 11/08/20 at 1230, MARITA ondansetron Yes [id number] 4mg Take 1 Univers (ZOFRAN 3-06 tablet by ity of ODT) 4 mg 00:00: mouth [place] disintegrat 00 every 8 Medic al ing tablet (eight) Branch hours as needed for Nausea and Vomiting (N/V). dicyclomine Yes [id number] 20mg Take 1 Univers 20 mg 3-06 tablet by ity of tablet 00:00: mouth 4 [place] 00 (four) Medical times Branch daily as needed for Abdominal pain. No known No Univers medications [facility] Vital Signs Vital Name Observation Time Observation Value Comments Source Systolic blood 2020-11-08 21:00:00 136 mm[Hg] [facility] Diastolic blood 2020-11-08 21:00:00 95 mm[Hg] [facility] Heart rate 2020-11-08 21:00:00 93 /min [facility] Respiratory rate 2020-11-08 21:00:00 16 /min [facility] Oxygen saturation in 2020-11-08 21:00:00 98 /min [facility] Arterial blood by [facility] Pulse oximetry [facility] Body temperature 2020-11-08 18:12:00 36.44 Zenaida [facility] Body height 2020-11-08 18:12:00 175.3 cm [facility] Body weight 2020-11-08 18:12:00 92.987 kg [facility] BMI 2020-11-08 18:12:00 30.27 kg/m2 [facility] Procedures Procedure Date / Time Performed Performing Clinician Sour e POCT GLUCOSE 2020-11-08 20:26:00 Pearce, Silvia [facility] (AUTOMATED) [facility] LIPASE 2020-11-08 18:29:00 [facility] HEPATIC FUNCTION PANEL 2020-11-08 18:29:00 PearceSilvia parsons [facility] ([id number]) [facility] (ALB,T.PRO,BILI T,BU/BC,ALT,AST,ALK PHOS) BASIC METABOLIC PANEL 2020-11-08 18:29:00 PearceSilvia parsons [facility] (NA, K, CL, CO2, Medical Branch GLUCOSE, BUN, CREATININE, CA) CBC WITH DIFF 2020-11-08 18:29:00 Silvia Pearce [facility] URINALYSIS 2020-11-08 18:29:00 Silvia Pearce [facility] NOTICE OF PRIVACY 2020-11-08 18:06:16 Doctor Unassigned, No Univ [facility] PRACTICES Name [facility] CONSENT/REFUSAL FOR 2020-11-08 18:06:04 Doctor Unassigned, No [facility] AND Name [facility] TREATMENT Encounters Start End Encounter Admission Attending Care Care Encounter Source Date/Time Date/Time Type Type Clinicians Facility Department ID 2020-11-08 2020-11-08 [id number] Univers 12:16:00 15:38:00 Silvia Laurent [id number] i [facility] [id number] [facility] [id number] [facility] 084 Branch 2020-11-08 2020-11-08 Emergency [facility] [id number] Univers 12:06:00 12:06:00 SILVIA ity [facility] 2020-11-08 2020-11-08 Orders Doctor GONZALEZ [id number] Univers 00:00:00 00:00:00 Only Unassigned, JOSE [id number] ity of [place] [facility] [id number] [facility] [id number] [facility] 009 Branch Results Test Description Test Time Test Comments Results Result Comments Source POCT GLUCOSE (AUTOMATED) 2020-11-08 20:30:00 Test Item Value Reference Range Interpretation Comme nts POCT GLU (test code = 5187707379) 181 mg/dL 70-110 H Lab Interpretation (test code = 81015-4) Abnormal [facility] (NA, K, CL, CO2, GLUCOSE, BUN, CREATININE, CA)2020-11-08 18:48:00 Test Item Value Reference Range Interpretation Comments NA (test code = 134 mmol/L 135-145 L 6793358688) K (test code = 4.0 mmol/L 3.5-5 5331873583) CL (test code = 96 mmol/L 98-108 L 7797162299) CO2 TOTAL (test code = 29 mmol/L 23-31 9308836560) AGAP (test code = 2-16 9772251104) BUN (test code = 10 mg/dL 7-23 6903305939) GLUCOSE (test code = 368 mg/dL 70-110 H 6106968309) CREATININE (test code = 0.58 mg/dL 0.6-1.25 L 8186845315) CALCIUM (test code = 9.1 mg/dL 8.6-10.6 2829255829) eGFR Calculation mL/min/1.73m2 (Non-) (test code = 2088933110) eGFR Calculation mL/min/1.73m2 () (test code = 8533128395) RAFAEL (test code = RAFAEL) Association of Glomerular Filtration Rate (GFR) and Staging of Kidney Disease* + --+ --+ ------+| GFR (mL/min/1.73 m2) ?| With Kidney Damage ?| ?Without Kidney Damage+ --------+ --------+ +| ?>90 ?| ?Stage one ?| ? Normal ?+ ---+ ---+ -------+| ?60-89 ?| ?Stage two ?| ? Decreased GFR ? + --+ --+ ------+| ?30-59 ?| ?Stage three ?| ? Stage three ? + --+ --+ ------+| ?15-29 ?| ?Stage four ? | ? Stage four ?+ ---+ ---+ -------+| ?<15 (or dialysis) ? ?| ?Stage five ? | ? Stage five ?+ ---+ ---+ -------+ *Each stage assumes the associated GFR level has been in effect for at least three months. ?Stages 1 to 5, with or without kidney disease, indicate chronic kidney disease. Notes: Determination of stages one and two (with eGFR >59mL/min/1.73 m2) requires estimation of kidney damage for at least three months as defined by structural or functional abnormalities of the kidney, manifested by either:Pathological abnormalities or Markers of kidney damage (including abnormalities in the composition of the blood or urine or abnormalities in imaging tests). Lab Interpretation Abnormal (test code = 57733-0) [facility] (ALB, T.PRO, BILI T, BU/BC, ALT, AST, ALK PHOS)2020-11-08 18:48:00 Test Item Value Reference Range Interpretation Comments TOTAL BILI (test code = 1202748414) 0.8 mg/dL 0.1-1.1 BILI UNCON (test code = 3817834665) 0.8 mg/dL 0.1-1.1 BILI CONJ (test code = 7188940863) 0.0 mg/dL 0-0.3 T PROTEIN (test code = 4773994773) 7.8 g/dL 6.3-8.2 ALBUMIN (test code = 9547338306) 4.7 g/dL 3.5-5 ALK PHOS (test code = 1620628285) 147 U/L 34-122 H ALTv (test code = 1742-6) 48 U/L 5-50 AST(SGOT) (test code = 1975227416) 42 U/L 13-40 H Lab Interpretation (test code = Abnormal 24370-9) [facility] Center[facility] [id number] 18:48:00 Test Item Value Reference Range Interpretation Comments LIPASE (test code = 8572862936) 27 U/L 0-220 Lab Interpretation (test code = Normal 85699-0) [facility]ysis2021-[facility]-06 18:39:00 Test Item Value Reference Range Interpretation Comments APPEARANCE (test code = Clear Clear 7808066682) COLOR (test code = Yellow Yellow 7796225158) PH (test code = 4.8-8.0 5964244886) SP GRAVITY (test code = 1.003-1.030 H 5111496925) GLU U QUAL (test code = 500 mg/dL Normal A 2788778929) BLOOD (test code = Negative Negative 4697988450) KETONES (test code = 5 mg/dL Negative A 7930675681) PROTEIN (test code = Negative Negative 2887-8) UROBILIN (test code = Normal Normal 0386638234) BILIRUBIN (test code = Negative Negative 9973426449) NITRITE (test code = Negative Negative 0818324022) LEUK ALYSHA (test code = Negative Negative 7533583019) RBC/HPF (test code = See_Comment [Autom ated message] 8317345684) The system [employer] generated this result transmit patricio reference range : 0 - 3 HPF. The refe rence range was not u sed to interpret th is result as normal/abnormal . WBC/HPF (test code = See_Comment [Autom ated message] 2406715542) The system [employer] h generated this result transmit patricio reference range : 0 - 5 HPF. The refe rence range was not u sed to interpret th is result as normal/abnormal . BACTERIA (test code = Negative Negative 2995394010) Lab Interpretation (test Abnormal code = 18637-3) [facility] with [id number] 18:36:00 Test Item Value Reference Range Interpretation Comments WBC (test code = See_Comment [Automated 7690-2) message] The sy stem which generated this result transmitted reference range : 4.20 - 10.70 10*3/?L. The reference range was not used to interpret this result as normal/abnormal . RBC (test code = See_Comment H [Automated 789-8) message] The sy stem which generated this result transmitted reference range : 4.26 - 5.52 10*6/?L. The reference range was not used to interpret this result as normal/abnormal . HGB (test code = 17.7 g/dL 12.2-16.4 H 718-7) HCT (test code = 49.1 % 38.4-49.3 4544-3) MCV (test code = 82.1 fL 81.7-95.6 787-2) MCH (test code = 29.6 pg 26.1-32.7 785-6) MCHC (test code = 36.0 g/dL 31.2-35 H 786-4) RDW-SD (test code = 33.7 fL 38.5-51.6 L 56565-1) RDW-CV (test code = 11.5 % 12.1-15.4 L 788-0) PLT (test code = See_Comment H [Automated 777-3) message] The sy stem which generated this result transmitted reference range : 150 - 328 10*3/ ?L. The reference r teresita was not used to interpret this result as normal/abnormal . MPV (test code = 10.2 fL 9.8-13 31385-3) NRBC/100 WBC (test See_Comment [Automat ed code = 6141570319) message] The system which generated this result transmitted reference range : 0.0 - 10.0 /100 WBCs. The refer ence range was not u sed to interpret th is result as normal/abnormal . NRBC x10^3 (test code <0.01 See_Comment [Auto mated = 2103223464) message] The s ystem which generated this result transmitted reference range : 10*3/?L. The reference range was not used to interpret this result as normal/abnormal . GRAN MAT (NEUT) % 60.3 % (test code = 770-8) IMM GRAN % (test code 0.70 % = 0276412527) LYMPH % (test code = 29.2 % 736-9) MONO % (test code = 4.7 % 5905-5) EOS % (test code = 3.9 % 713-8) BASO % (test code = 1.2 % 706-2) GRAN MAT x10^3(ANC) 6.44 10*3/uL 1.99-6.95 (test code = 9039639625) IMM GRAN x10^3 (test 0.07 10*3/uL 0-0.06 H code = 1433089364) LYMPH x10^3 (test code 3.12 10*3/uL 1.09-3.23 = 731-0) MONO x10^3 (test code 0.50 10*3/uL 0.36-1.02 = 742-7) EOS x10^3 (test code = 0.42 10*3/uL 0.06-0.53 711-2) BASO x10^3 (test code 0.13 10*3/uL 0.01-0.09 H = 704-7) Lab Interpretation Abnormal (test code = 14445-6) [facility]"
[2021-09-14] MEDS ORDERED: ONDANSETRON 4 MG/2 ML VIAL ONE (15:24)
[2021-09-14] MEDS ORDERED: MORPHINE 4 MG/ML SYR ONE (15:24)
[2021-09-14] MEDS ORDERED: NA CHLORIDE 0.9% 1,000 ML ONE (15:24)
[2021-09-14 15:30] LABS: Absolute Lymphocytes (CBC) 2.4 K/uL (0.7-4.9); Hematocrit 47.8 % (39.6-49.0); MPV 9.2 fL (7.6-11.3); RBC Red Blood Cell Count 5.65 M/uL (4.33-5.43)
[2021-09-14 15:49] LABS: ALT/SGPT 42 U/L (12-78); AST/SGOT 15 U/L (15-37); Albumin 3.7 g/dL (3.4-5.0); Alkaline Phosphatase 128 U/L (45-117); BUN Blood Urea Nitrogen 7 mg/dL (7-18); Bicarbonate 25 mmol/L (21-32); Bilirubin Direct 0.2 mg/dL (0-0.2); Bilirubin Total 0.7 mg/dL (0.2-1.0); Glucose Level 348 mg/dL (74-106); Lipase 36 U/L (73-393); Potassium 3.7 mmol/L (3.5-5.1); Protein, Total 7.3 g/dL (6.4-8.2); Sodium Level 137 mmol/L (136-145)
[2021-09-14] MEDS ORDERED: INSULIN -REGULAR HUMAN 50 UNIT/0.5 ML ML ONE (16:05)
--- NOTE | 2021-09-14 16:26 | ER ---
Nurse's Notes [facility] Name: Jimenez Patrick Age: 26 yrs Sex: Male : 1995 Arrival Date: 09/14/2021 Time: 14:45 Bed 12 Private MD: Diagnosis: Other chronic pancreatitis;Hyperglycemia, unspecified Presentation: 09/14 14:57 Chief complaint: Patient states: Abd pain for 1 day. Believes its another pancreatitis ll1 flare-up. Coronavirus screen: Vaccine status: Patient reports being unvaccinated. Client denies travel out of the [place] in the last 14 days. At this time, the client does not indicate any symptoms associated with coronavirus-19. Ebola Screen: Patient denies travel to an Ebola-affected area in the 21 days before illness onset. Initial Sepsis Screen: Does the patient meet any 2 criteria? HR > 90 bpm. No. Patient's initial sepsis screen is negative. Does the patient have a suspected source of infection? Yes: Acute abdominal pain. Risk Assessment: Do you want to hurt yourself or someone else? Patient reports no desire to harm self or others. Onset of symptoms was September 14, 2021. 14:57 Method Of Arrival: Ambulatory ll1 14:57 Acuity: MOSES 3 ll1 Historical: - Allergies: 14:58 NKA; ll1 - PMHx: 14:58 Chronic Pancreatitis; Diabetes - IDDM; ll1 - PSHx: 14:58 Cholecystectomy; stents x 2 in pancreas; I\T\D; ll1 - Immunization history:: Client reports having NOT received the Covid vaccine. - Social history:: Smoking status: Patient reports the use of cigarette tobacco products, denies chronic smoking, but will smoke occasionally. Screenin:35 Abuse screen: Denies threats or abuse. Nutritional screening: No deficits noted. ll3 Tuberculosis screening: No symptoms or risk factors identified. Fall Risk IV access (20 points). Total Dominguez Fall Scale indicates No Risk (0-24 pts). Assessment: 15:35 General: Appears in no apparent distress. uncomfortable, Behavior is calm, cooperative, ll3 appropriate for age. Pain: Complains of pain in epigastric area Pain radiates to back Pain currently is 6 out of 10 on a pain scale. Neuro: Level of Consciousness is awake, alert, obeys commands, Oriented to person, place, time, situation. Cardiovascular: Patient's skin is warm and dry. Respiratory: Respiratory effort is even, unlabored, Respiratory pattern is regular, symmetrical. GI: Bowel sounds present X 4 quads. Abd is soft X 4 quads Abdomen is tender to palpation in right upper quadrant and left upper quadrant. Derm: Skin is pink, warm \T\ dry. 16:17 Reassessment: Patient appears in no apparent distress at this time. No changes from ll3 previously documented assessment. Patient and/or family updated on plan of care and expected duration. Pain level reassessed. Patient is alert, oriented x 3, equal unlabored respirations, skin warm/dry/pink. Vital Signs: 14:57 Pulse 97; Resp 18; Temp 98.2; Pulse Ox 100% ; Weight 95.25 kg; Height 5 ft. 9 in. ll1 (175.26 cm); Pain 6/10; 16:18 BP 136 / 84; Pulse 81; Resp 17; Pulse Ox 100% on R/A; ll3 14:57 Body Mass Index 31.01 (95.25 kg, 175.26 cm) ll1 ED Course: 14:45 Patient arrived in ED. ds1 14:58 Triage completed. ll1 14:59 Arm band placed on. ll1 15:04 Marianela Moyer FNP-C is [facility]. kb 15:04 Dontrell Dunlap MD is Attending Physician. kb 15:14 Kike Hand, ERIC is Primary Nurse. ll3 15:35 Patient has correct armband on for positive identification. Bed in low position. Call ll3 light in reach. Side rails up X 1. 15:35 Inserted saline lock: 22 gauge in right antecubital area, using aseptic technique. ll3 16:33 No provider procedures requiring assistance completed. IV discontinued, intact, jh5 bleeding controlled, No redness/swelling at site. Pressure dressing applied. Administered Medications: 15:30 Drug: NS 0.9% 1000 ml Route: IV; Rate: 1000 ml; Site: right antecubital; ll3 15:32 Drug: Zofran (Ondansetron) 4 mg Route: IVP; Site: right antecubital; ll3 15:58 Follow up: Response: No adverse reaction ll3 15:35 Drug: morphine 4 mg Route: IVP; Site: right antecubital; ll3 15:58 Follow up: Response: No adverse reaction 3 16:10 Drug: Insulin Regular Human 5 units {Co-Signature: jose f5 (Cathy Mchugh RN).} Route: IVP; ll3 Site: right antecubital; Outcome: 16:26 Discharge ordered by . catrachito 16:33 Discharged to home ambulatory. [facility] 16:33 Condition: good 16:33 Discharge instructions given to patient, Instructed on discharge instructions, follow up and referral plans. safety practices, Demonstrated understanding of instructions, follow-up care. 16:36 Patient left the ED. [facility] Signatures: Marianela Moyer, DEXTERC MALA-Leslie Jimenze ds1 Ramiro Gregory RN RN 1 Cathy Mchugh RN RN 5 Kike Hand RN RN 3 Cathy Mchugh RN 5
--- NOTE | 2021-09-14 16:27 | EDPHYS ---
Physician Documentation [facility] Name: Jimenez Patrick Age: 26 yrs Sex: Male : 1995 Arrival Date: 09/14/2021 Time: 14:45 Bed 12 Private MD: ED Physician Dontrell Dunlap HPI: 09/14 15:43 This 26 yrs old Male presents to ER via Ambulatory with complaints of kb Abdominal Pain. 15:43 The patient presents with abdominal pain in the upper abdomen. Onset: The kb symptoms/episode began/occurred this morning. The symptoms do not radiate. Associated signs and symptoms: Pertinent positives: nausea, Pertinent negatives: fever, vomiting. The symptoms are described as constant. Modifying factors: The symptoms are alleviated by nothing, the symptoms are aggravated by nothing. Severity of pain: At its worst the pain was moderate in the emergency department the pain is unchanged. The patient has not experienced similar symptoms in the past. The patient has not recently seen a physician. Historical: - Allergies: 14:58 NKA; ll1 - PMHx: 14:58 Chronic Pancreatitis; Diabetes - IDDM; ll1 - PSHx: 14:58 Cholecystectomy; stents x 2 in pancreas; I\T\D; ll1 - Immunization history:: Client reports having NOT received the Covid vaccine. - Social history:: Smoking status: Patient reports the use of cigarette tobacco products, denies chronic smoking, but will smoke occasionally. ROS: 15:42 Constitutional: Negative for fever, chills, and weight loss. kb 15:42 Abdomen/GI: Positive for abdominal pain, nausea, Negative for vomiting, diarrhea. 15:42 All other systems are negative. Exam: 15:42 Constitutional: This is a well developed, well nourished patient who is awake, alert, kb and in no acute distress. Head/Face: Normocephalic, atraumatic. ENT: Moist Mucous membranes Cardiovascular: Regular rate and rhythm with a normal S1 and S2. No gallops, murmurs, or rubs. No pulse deficits. Respiratory: Respirations even and unlabored. No increased work of breathing. Talking in full sentences Skin: Warm, dry with normal turgor. Normal color. MS/ Extremity: Pulses equal, no cyanosis. Neurovascular intact. Full, normal range of motion. Neuro: Awake and alert, GCS 15, oriented to person, place, time, and situation. Moves all extremities. Normal gait. Psych: Awake, alert, with orientation to person, place and time. Behavior, mood, and affect are within normal limits. 15:42 Abdomen/GI: Inspection: abdomen appears normal, Bowel sounds: normal, Palpation: soft, in all quadrants, mild abdominal tenderness, in the right upper quadrant, moderate abdominal tenderness, in the left upper quadrant. Vital Signs: 14:57 Pulse 97; Resp 18; Temp 98.2; Pulse Ox 100% ; Weight 95.25 kg; Height 5 ft. 9 in. ll1 (175.26 cm); Pain 6/10; 16:18 BP 136 / 84; Pulse 81; Resp 17; Pulse Ox 100% on R/A; ll3 14:57 Body Mass Index 31.01 (95.25 kg, 175.26 cm) ll1 MDM: 15:04 Patient medically screened. kb 15:42 Data reviewed: vital signs, nurses notes. Data interpreted: Pulse oximetry: on room air kb is 100 %. Interpretation: normal. 16:22 Counseling: I had a detailed discussion with the patient and/or guardian regarding: the kb historical points, exam findings, and any diagnostic results supporting the discharge/admit diagnosis, lab results, the need for outpatient follow up, a family practitioner, a field cashier, to return to the emergency department if symptoms worsen or persist or if there are any questions or concerns that arise at home. 16:25 ED course: Pain has improved after treatment. . kb 09/14 15:04 Order name: Basic Metabolic Panel kb 09/14 15:04 Order name: CBC with Diff; Complete Time: 15:33 kb 09/14 15:04 Order name: Hepatic Function kb 09/14 15:04 Order name: Lipase; Complete Time: 15:56 kb 09/14 15:05 Order name: Basic Metabolic Panel; Complete Time: 15:56 EDMS 09/14 15:05 Order name: Liver (Hepatic) Function; Complete Time: 15:56 EDMS 09/14 15:04 Order name: IV Saline Lock; Complete Time: 15:37 kb 09/14 15:04 Order name: Labs collected and sent; Complete Time: 15:37 kb Administered Medications: 15:30 Drug: NS 0.9% 1000 ml Route: IV; Rate: 1000 ml; Site: right antecubital; ll3 15:32 Drug: Zofran (Ondansetron) 4 mg Route: IVP; Site: right antecubital; ll3 15:58 Follow up: Response: No adverse reaction ll3 15:35 Drug: morphine 4 mg Route: IVP; Site: right antecubital; ll3 15:58 Follow up: Response: No adverse reaction ll3 16:10 Drug: Insulin Regular Human 5 units {Co-Signature: 5 (Cathy Mchugh RN).} Route: IVP; ll3 Site: right antecubital; Disposition: 17:50 Co-signature as Attending Physician, Dontrell Dunlap MD I agree with the assessment and rn plan of care. Attestation: The patient's history, exam findings, diagnostics, and a summary of any interventions or procedures was reviewed in detail with Marianela TUBBS. Disposition Summary: 09/14/21 16:26 Discharge Ordered Location: Home kb Condition: Stable kb Diagnosis - Other chronic pancreatitis kb - Hyperglycemia, unspecified kb Followup: kb - With: Emergency Department - When: As needed - Reason: Worsening of condition Followup: kb - With: Private Physician - When: 2 - 3 days - Reason: Recheck today's complaints, Continuance of care, Re-evaluation by your physician Discharge Instructions: - Discharge Summary Sheet kb - Hyperglycemia, [id number] kb - Chronic Pancreatitis kb Forms: - Medication Reconciliation Form kb - Thank You Letter kb - Antibiotic Education kb - Prescription Opioid Use kb Prescriptions: - Zofran 4 mg Oral Tablet - take 1 tablet by ORAL route every 6 hours As needed; 20 tablet; Refills: 0, kb Product Selection Permitted - dicyclomine 20 mg Oral Tablet - take 1 tablet by ORAL route 4 times per day As needed; 20 tablet; Refills: 0, kb Product Selection Permitted Signatures: Dispatcher [employer] Marianela Bullock FNP-C FNP-Dontrell Fernández MD MD rn Lewis, Lynsay, RN RN ll1 Cathy Mchugh RN RN 5 Kike Hand RN RN 3 Cathy Mchugh RN 5
[2021-09-14 17:30] VITALS: TEMP 98.2; O2SAT 100
[2021-09-14 17:32] VITALS: BP 136/84
== END 2021-09-14 16:36 | disposition home or self-care (01) ==
LOC: ER 14:43
DX: K86.1 Other chronic pancreatitis (principal); E11.65 Type 2 diabetes mellitus with hyperglycemia
CPT/HCPCS: 85025; 80048; 36415; 82947; 80076; 83690; 96375; 96374; 99283; J7030; J2405

== ENCOUNTER 2021-10-30 15:35 | Emergency (ER) | payer SELFPAY ==
--- OUTSIDE RECORDS SUMMARY | 2021-10-30 15:39 | XMS REPORT | Continuity of Care Document ---
:1995 Author Organization [facility] t Address [address] [place] [address] Care Team Providers Name Role Phone Hung MEDEIROS Attending Clinician HUNG Attending Clinician Unavailable Doctor [...] Disease Active Overview: Univer s warts warts 8 Right ity of 00:00: [id number] [place] 00 Diagnosis Medical Term Branch Site Director Utility Allergies, Adverse Reactions, Alerts Allergy Allergy Status Severity Reaction(s) Onset Inactive Treating Comm ents Source Name Type Date Date Clinician NO KNOWN Drug Active Univers ALLERGIE Class ity of S [facility] Social History Social Habit Start Date Stop Date Quantity Comments Source Sex Assigned At Uni versity [facility] Exposure to SARS-CoV-2 Not sure [facility] Smoking Status Start Date Stop Date Source Unknown if ever smoked Universit y [facility] Medications Ordered Filled Start Stop Current Ordering Indication Dosage Frequency Signature Comments Components Source Medication Medication Date Date Medication? Clinician (SIG) Name Name maalox:diph 2020- No 15mL 15 mL, Uni vers enhydrAMINE 11-08 Oral, ity of :lidocaine 20:45: 20:39 ONCE, 1 Stu as 2 % viscous 00 :00 dose, Sat Med ical 1:1:1 11/08/20 at [place] (FIRST-MOUT 1445, MARITA HWASH BLM) oral suspension 15 mL insulin 2020- No 9U 9 Units, [facility] rs regular 11-08 Slow IV ity of human 20:30: 19:39 Push, [place] (HUMULIN R) 00 :00 ONCE, 1 Medic al injection 9 dose, Sat Bra community [facility] Units 11/08/20 at 1430, STAT ondansetron 2020- No 4mg 4 mg, Slow Univers (ZOFRAN 11-08 IV Push, ity of (PF)) 19:45: 18:49 ONCE, 1 [place] injection 4 00 :00 dose, Sat Med ical mg 11/08/20 at [place] 1345, MARITA morpHINE 2020- No 4mg 4 mg, Slow Un brendan injection 4 11-08 IV Push, ity of mg 19:45: 18:49 ONCE, 1 [place] 00 :00 dose, Sat Medical 11/08/20 at [place] 1345, STAT NaCl 0.9% 2020- No 1000mL at 999 Uni vers (NS) bolus 11-08-06 mL/hr, ity of infusion 19:30: 20:37 1,000 mL, Stu as 1,000 mL 00 :00 IV Medical Infusion, [place] ONCE, 1 dose, 11/08/20 at 1330, MARITA NaCl 0.9% 2020- No 1000mL at 999 Uni vers (NS) bolus 3 03-06 mL/hr, ity of infusion 18:30: 19:39 1,000 mL, Stu as 1,000 mL 00 :00 IV Medical Infusion, [place] ONCE, 1 dose, 11/08/20 at 1230, MARITA ondansetron Yes [id number] 4mg Take 1 Univers (ZOFRAN 3-06 tablet by ity of ODT) 4 mg 00:00: mouth [place] disintegrat 00 every 8 Medic al ing tablet (eight) Branch hours as needed for Nausea and Vomiting (N/V). dicyclomine Yes [id number] 20mg Take 1 Univers 20 mg 3-06 tablet by ity of tablet 00:00: mouth 4 [place] 00 (four) Medical times Branch daily as needed for Abdominal pain. No known No Univers medications [facility] Vital Signs Vital Name Observation Time Observation Value Comments Source Systolic blood 2020-11-08 21:00:00 136 mm[Hg] [facility] Diastolic blood 2020-11-08 21:00:00 95 mm[Hg] [facility] Heart rate 2020-11-08 21:00:00 93 /min [facility] Respiratory rate 2020-11-08 21:00:00 16 /min [facility] Oxygen saturation in 2020-11-08 21:00:00 98 /min [facility] Arterial blood by [facility] Pulse oximetry [place] Body temperature 2020-11-08 18:12:00 36.44 Zenaida [facility] Body height 2020-11-08 18:12:00 175.3 cm [facility] Body weight 2020-11-08 18:12:00 92.987 kg [facility] BMI 2020-11-08 18:12:00 30.27 kg/m2 [facility] Procedures Procedure Date / Time Performed Performing Clinician Sour e POCT GLUCOSE 2020-11-08 20:26:00 Pearce, [facility] (AUTOMATED) [facility] LIPASE 2020-11-08 18:29:00 [facility] HEPATIC FUNCTION PANEL 2020-11-08 18:29:00 PearceSilvia parsons [facility] ([id number]) [facility] (ALB,T.PRO,BILI T,BU/BC,ALT,AST,ALK PHOS) BASIC METABOLIC PANEL 2020-11-08 18:29:00 Silvia Pearce [facility] (NA, K, CL, CO2, Medical Branch GLUCOSE, BUN, CREATININE, CA) CBC WITH DIFF 2020-11-08 18:29:00 Silvia Pearce [facility] URINALYSIS 2020-11-08 18:29:00 Silvia Paerce [facility] NOTICE OF PRIVACY 2020-11-08 18:06:16 Doctor Unassigned, No Univ [facility] PRACTICES Name [facility] CONSENT/REFUSAL FOR 2020-11-08 18:06:04 Doctor Unassigned, No [facility] DIAGNOSIS AND Name [facility] TREATMENT Encounters Start End Encounter Admission Attending Care Care Encounter Source Date/Time Date/Time Type Type Clinicians Facility Department ID 2021-09-30 Outpatient STLMLC STLMLC [id number] [address] 12:34:38 [id number] Deisi siegel Outpat[facility] ent Clinics 2020-11-08 2020-11-08 [facility] [id number] Univers 12:16:00 15:38:00 Silvia Laurent [id number] i ty [facility] [id number] [facility] [id number] [facility] 084 Branch 2020-11-08 2020-11-08 Emergency X [facility] ERT [id number] Univers 12:06:00 12:06:[address] [facility] 2020-11-08 2020-11-08 Orders Doctor GONZALEZ [id number] Univers 00:00:00 00:00:00 Only Unassigned, JOSE [id number] ity of [place] [facility] [id number] [facility] [id number] [facility] 009 [place] Results Test Description Test Time Test Comments Results Result Comments Source POCT GLUCOSE (AUTOMATED) 2020-11-08 20:30:00 Test Item Value Reference Range Interpretation Comme nts POCT GLU (test code = 5590022955) 181 mg/dL 70-110 H Lab Interpretation (test code = 87819-4) [facility]normal [facility] (NA, K, CL, CO2, GLUCOSE, BUN, CREATININE, CA)2020-11-08 18:48:00 Test Item Value Reference Range Interpretation Comments NA (test code = 134 mmol/L 135-145 L 7561339255) K (test code = 4.0 mmol/L 3.5-5 3578832975) CL (test code = 96 mmol/L 98-108 L 0541230249) CO2 TOTAL (test code = 29 mmol/L 23-31 2934523661) AGAP (test code = 2-16 6874570900) BUN (test code = 10 mg/dL 7-23 4470558730) GLUCOSE (test code = 368 mg/dL 70-110 H 0768009792) CREATININE (test code = 0.58 mg/dL 0.6-1.25 L 6611626460) CALCIUM (test code = 9.1 mg/dL 8.6-10.6 0248616971) eGFR Calculation mL/min/1.73m2 (Non-) (test code = 7908241369) eGFR Calculation mL/min/1.73m2 () (test code = 5861697770) RAFAEL (test code = RAFAEL) Association of [...] tests). Lab Interpretation Abnormal (test code = 24461-5) [facility] (ALB, T.PRO, BILI T, BU/BC, ALT, AST, ALK PHOS)2020-11-08 18:48:00 Test Item Value Reference Range Interpretation Comments TOTAL BILI (test code = 9942293522) 0.8 mg/dL 0.1-1.1 BILI UNCON (test code = 8820885905) 0.8 mg/dL 0.1-1.1 BILI CONJ (test code = 4978820483) 0.0 mg/dL 0-0.3 T PROTEIN (test code = 3611403030) 7.8 g/dL 6.3-8.2 ALBUMIN (test code = 3773602253) 4.7 g/dL 3.5-5 ALK PHOS (test code = 4328812856) 147 U/L 34-122 H ALTv (test code = 1742-6) 48 U/L 5-50 AST(SGOT) (test code = 4020935413) 42 U/L 13-40 H Lab Interpretation (test code = Abnormal 96683-9) [facility] [id number] 18:48:00 Test Item Value Reference Range Interpretation Comments LIPASE (test code = 2991384084) 27 U/L 0-220 Lab Interpretation (test code = Normal 02081-9) [facility]2021-[facility]-06 18:39:00 Test Item Value Reference Range Interpretation Comments APPEARANCE (test code = Clear Clear 8638226982) COLOR (test code = Yellow Yellow 7643500909) PH (test code = 4.8-8.0 5275026658) SP GRAVITY (test code = 1.003-1.030 H 6197812794) GLU U QUAL (test code = 500 mg/dL Normal A 3781533799) BLOOD (test code = Negative Negative 6022982824) KETONES (test code = 5 mg/dL Negative A 8801089417) PROTEIN (test code = Negative Negative 2887-8) UROBILIN (test code = Normal Normal 1886817087) BILIRUBIN (test code = Negative Negative 8616450687) NITRITE (test code = Negative Negative 1761644879) LEUK ALYSHA (test code = Negative Negative 6406982532) RBC/HPF (test code = See_Comment [Autom ated message] 5059020839) The system W-21 generated this result transmit patricio reference range : 0 - 3 HPF. The refe rence range was not u sed to interpret th is result as normal/abnormal . WBC/HPF (test code = See_Comment [Autom ated message] 8971865259) The system W-21 generated this result transmit patricio reference range : 0 - 5 HPF. The refe rence range was not u sed to interpret th is result as normal/abnormal . BACTERIA (test code = Negative Negative 2764434651) Lab Interpretation (test Abnormal code = 57135-7) [facility] with [id number] 18:36:00 Test Item Value Reference Range Interpretation Comments WBC (test code = See_Comment [Automated 6690-2) message] The sy stem which generated this [...] (test code = 33.7 fL 38.5-51.6 L 57877-7) RDW-CV (test code = 11.5 % 12.1-15.4 L 788-0) PLT (test code = See_Comment H [Automated 777-3) message] The sy stem which generated this result transmitted reference range : 150 - 328 10*3/ ?L. The reference r teresita was not used to interpret this result as normal/abnormal . MPV (test code = 10.2 fL 9.8-13 47445-4) NRBC/100 WBC (test See_Comment [Automat ed code = 8552569604) message] The system which generated this result transmitted reference range : 0.0 - 10.0 /100 WBCs. The refer ence range was not u sed to interpret th is result as normal/abnormal . NRBC x10^3 (test code <0.01 See_Comment [Auto mated = 7165006526) message] The s ystem which generated this result transmitted reference range : 10*3/?L. The reference range was not used to interpret this result as normal/abnormal . GRAN MAT (NEUT) % 60.3 % (test code = 770-8) IMM GRAN % (test code 0.70 % = 1750809104) LYMPH % (test code = 29.2 % 736-9) MONO % (test code = 4.7 % 5905-5) EOS % (test code = 3.9 % 713-8) BASO % (test code = 1.2 % 706-2) GRAN MAT x10^3(ANC) 6.44 10*3/uL 1.99-6.95 (test code = 1692934352) IMM GRAN x10^3 (test 0.07 10*3/uL 0-0.06 H code = 4294153893) LYMPH x10^3 (test code 3.12 10*3/uL 1.09-3.23 = 731-0) MONO x10^3 (test code 0.50 10*3/uL 0.36-1.02 = 742-7) EOS x10^3 (test code = 0.42 10*3/uL 0.06-0.53 711-2) BASO x10^3 (test code 0.13 10*3/uL 0.01-0.09 H = 704-7) Lab Interpretation Abnormal (test code = 79874-4) [facility]"
[2021-10-30] MEDS ORDERED: NA CHLORIDE 0.9% 1,000 ML ONE (15:55)
[2021-10-30] MEDS ORDERED: ONDANSETRON 4 MG/2 ML VIAL ONE (15:55)
[2021-10-30] MEDS ORDERED: MORPHINE 4 MG/ML SYR ONE (15:55)
[2021-10-30 16:03] LABS: Absolute Lymphocytes (CBC) 2.2 K/uL (0.7-4.9); Hematocrit 50.9 % (39.6-49.0); Lymphocytes % 30.4 % (15.3-44.8); MPV 9.5 fL (7.6-11.3); RBC Red Blood Cell Count 5.93 M/uL (4.33-5.43)
[2021-10-30 16:21] LABS: ALT/SGPT 54 U/L (12-78); AST/SGOT 26 U/L (15-37); Albumin 4.1 g/dL (3.4-5.0); Alkaline Phosphatase 139 U/L (45-117); BUN Blood Urea Nitrogen 7 mg/dL (7-18); Bicarbonate 26 mmol/L (21-32); Bilirubin Direct 0.3 mg/dL (0-0.2); Bilirubin Total 1.6 mg/dL (0.2-1.0); Lipase 22 U/L (73-393); Potassium 3.5 mmol/L (3.5-5.1); Protein, Total 7.6 g/dL (6.4-8.2); Sodium Level 133 mmol/L (136-145)
[2021-10-30 16:22] LABS: Glucose Level 493 mg/dL (74-106)
[2021-10-30] MEDS ORDERED: INSULIN -REGULAR HUMAN 50 UNIT/0.5 ML ML ONE (16:36)
--- NOTE | 2021-10-30 17:47 | ER ---
Nurse's Notes [facility] Name: Jimenez Patrick Age: 26 yrs Sex: Male : 1995 Arrival Date: 10/30/2021 Time: 15:37 Bed 24 Private MD: Diagnosis: Other chronic pancreatitis;Diabetes mellitus due to underlying condition with hyperglycemia Presentation: 10/30 15:40 Chief complaint: Patient states: "Adrianna got chronic pancreatitis and I think im having a ab2 flare up. It hurts on the right side all the way to my back." Pt c/o n/d. Coronavirus screen: Vaccine status: Patient reports being unvaccinated. Client denies travel out of the [place] in the last 14 days. At this time, the client does not indicate any symptoms associated with coronavirus-19. Ebola Screen: Patient negative for fever greater than or equal to 101.5 degrees Fahrenheit, and additional compatible Ebola Virus Disease symptoms Patient denies exposure to infectious person. Patient denies travel to an Ebola-affected area in the 21 days before illness onset. No symptoms or risks identified at this time. Initial Sepsis Screen: Does the patient meet any 2 criteria? No. Patient's initial sepsis screen is negative. Does the patient have a suspected source of infection? No. Patient's initial sepsis screen is negative. Risk Assessment: Do you want to hurt yourself or someone else? Patient reports no desire to harm self or others. Onset of symptoms is unknown. 15:40 Method Of Arrival: Ambulatory ab2 15:40 Acuity: MOSES 3 ab2 Triage Assessment: 15:43 General: Appears in no apparent distress. uncomfortable, Behavior is calm, cooperative, ab2 appropriate for age. Pain: Complains of pain in right upper quadrant Pain currently is 7 out of 10 on a pain scale. Quality of pain is described as sharp. GI: Reports diarrhea, nausea. Historical: - Allergies: 15:42 NKA; ab2 - PMHx: 15:42 Chronic Pancreatitis; Diabetes - IDDM; ab2 - PSHx: 15:42 Cholecystectomy; I\\T\\D; stents x 2 in pancreas; ab2 - Immunization history:: Adult Immunizations up to date. - Social history:: Smoking status: Patient/guardian denies using tobacco, Stopped _ months ago 1. Screenin:59 Abuse screen: Denies threats or abuse. Nutritional screening: No deficits noted. lr4 Tuberculosis screening: No symptoms or risk factors identified. Fall Risk None identified. Assessment: 15:57 General: Appears in no apparent distress. comfortable, Behavior is calm, cooperative. lr4 Pain: Complains of pain in abdomen and right upper quadrant Pain radiates to back Pain currently is 7 out of 10 on a pain scale. Pain began 1 day ago. Neuro: No deficits noted. Cardiovascular: No deficits noted. Respiratory: No deficits noted. GI: Bowel sounds present X 4 quads. Abd is soft Abdomen has rebound tenderness in abdomen diffusely and right upper quadrant. 18:03 Reassessment: Patient states feeling better. Patient states symptoms have improved. Pt lr4 departed ed ambulatory with all personal effects. Vital Signs: 15:40 BP 147 / 101; Pulse 115; Resp 16; Temp 97.7(TE); Pulse Ox 100% on R/A; Weight 92.99 kg; ab2 Height 5 ft. 9 in. (175.26 cm); Pain 7/10; 15:57 BP 140 / 90; Pulse 99; Resp 16; Pulse Ox 100% ; lr4 17:42 BP 131 / 93; Pulse 89; Resp 18; Pulse Ox 100% on R/A; lr4 15:40 Body Mass Index 30.27 (92.99 kg, 175.26 cm) ab2 ED Course: 15:37 Patient arrived in ED. mr 15:42 Triage completed. ab2 15:43 [facility]oyer [facility]C [facility]. kb 15:43 Juany Valle MD is Attending Physician. kb 15:43 Arm band placed on right wrist. ab2 15:47 Angeline Hinds, ERIC is Primary Nurse. lr4 15:57 Basic Metabolic Panel Sent. lr4 15:57 CBC with Diff Sent. lr4 15:57 Hepatic Function Sent. lr4 15:57 Lipase Sent. lr4 15:59 Patient has correct armband on for positive identification. Bed in low position. Call lr4 light in reach. Side rails up X 1. Pulse ox on. NIBP on. Door closed. Warm blanket given. Head of bed. 15:59 No provider procedures requiring assistance completed. lr4 18:04 IV discontinued, intact, bleeding controlled, No redness/swelling at site. Pressure lr4 dressing applied. Administered Medications: 15:56 Drug: morphine 4 mg Route: IVP; Site: right antecubital; lr4 16:30 Follow up: Response: Pain is decreased lr4 15:56 Drug: Zofran (Ondansetron) 4 mg Route: IVP; Site: right antecubital; lr4 16:30 Follow up: Response: Nausea is decreased lr4 15:57 Drug: NS 0.9% 1000 ml Route: IV; Rate: 1000 ml; Site: right antecubital; lr4 16:29 Follow up: IV Status: Infusion continued lr4 16:33 Drug: Insulin Regular Human 10 units {Co-Signature: ss (Mikaela Vasquez RN).} Route: IVP; lr4 Site: left antecubital; 18:04 Follow up: Response: No adverse reaction; Marked relief of symptoms; RASS: Alert and lr4 Calm (0) Outcome: 17:42 Condition: stable lr4 17:46 Discharge ordered by . kb 18:03 Discharged to home ambulatory. lr4 18:03 Discharge instructions given to patient. 18:05 Patient left the ED. lr4 Signatures: Marianela Moyer, CLERICAL PRODUCTION WORKER-C CLERICAL PRODUCTION WORKER-Sofía Johnsondariana, Angeline Cummings, RN RN lr4 Mikaela Vasquez RN ss
--- NOTE | 2021-10-30 17:47 | EDPHYS ---
Physician Documentation [facility] Name: Jimenez Patrick Age: 26 yrs Sex: Male : 1995 Arrival Date: 10/30/2021 Time: 15:37 Bed 24 Private MD: ED Physician Juany Valle HPI: 10/30 15:56 This 26 yrs old Male presents to ER via Ambulatory with complaints of kb Abdominal Pain. 15:56 The patient presents with abdominal pain in the right upper quadrant. Onset: The kb symptoms/episode began/occurred 4 day(s) ago. The symptoms do not radiate. Associated signs and symptoms: Pertinent positives: nausea and vomiting, Pertinent negatives: fever. The symptoms are described as intermittent. Modifying factors: The symptoms are alleviated by nothing, the symptoms are aggravated by pressure. Severity of pain: At its worst the pain was moderate in the emergency department the pain is unchanged. The patient has experienced similar episodes in the past, chronically. The patient has not recently seen a physician. Pt states he has had upper abd pain that has been intermittent for the last 4 days. Today pain became constant. Feels exactly the same as previous pancreatitis flare up. Historical: - Allergies: 15:42 NKA; ab2 - PMHx: 15:42 Chronic Pancreatitis; Diabetes - IDDM; ab2 - PSHx: 15:42 Cholecystectomy; I\T\D; stents x 2 in pancreas; ab2 - Immunization history:: Adult Immunizations up to date. - Social history:: Smoking status: Patient/guardian denies using tobacco, Stopped _ months ago 1. ROS: 15:55 Constitutional: Negative for fever, chills, and weight loss. kb 15:55 Abdomen/GI: Positive for abdominal pain, nausea and vomiting, Negative for diarrhea, constipation. 15:55 All other systems are negative. Exam: 15:55 Constitutional: This is a well developed, well nourished patient who is awake, alert, kb and in no acute distress. Head/Face: Normocephalic, atraumatic. ENT: Moist Mucous membranes Cardiovascular: Regular rate and rhythm with a normal S1 and S2. No gallops, murmurs, or rubs. No pulse deficits. Respiratory: Respirations even and unlabored. No increased work of breathing. Talking in full sentences Skin: Warm, dry with normal turgor. Normal color. MS/ Extremity: Pulses equal, no cyanosis. Neurovascular intact. Full, normal range of motion. Neuro: Awake and alert, GCS 15, oriented to person, place, time, and situation. Moves all extremities. Normal gait. Psych: Awake, alert, with orientation to person, place and time. Behavior, mood, and affect are within normal limits. 15:55 Abdomen/GI: Inspection: abdomen appears normal, Bowel sounds: normal, Palpation: soft, in all quadrants, moderate abdominal tenderness, in the right upper quadrant. Vital Signs: 15:40 BP 147 / 101; Pulse 115; Resp 16; Temp 97.7(TE); Pulse Ox 100% on R/A; Weight 92.99 kg; ab2 Height 5 ft. 9 in. (175.26 cm); Pain 7/10; 15:57 BP 140 / 90; Pulse 99; Resp 16; Pulse Ox 100% ; lr4 17:42 BP 131 / 93; Pulse 89; Resp 18; Pulse Ox 100% on R/A; lr4 15:40 Body Mass Index 30.27 (92.99 kg, 175.26 cm) ab2 MDM: 15:44 Patient medically screened. kb 15:56 Data reviewed: vital signs, nurses notes. Data interpreted: Pulse oximetry: on room air kb is 100 %. Interpretation: normal. 17:45 Counseling: I had a detailed discussion with the patient and/or guardian regarding: the kb historical points, exam findings, and any diagnostic results supporting the discharge/admit diagnosis, lab results, the need for outpatient follow up, a caretaker resort, to return to the emergency department if symptoms worsen or persist or if there are any questions or concerns that arise at home. 10/30 15:44 Order name: Basic Metabolic Panel; Complete Time: 16:23 kb 10/30 15:44 Order name: CBC with Diff; Complete Time: 16:13 kb 10/30 15:44 Order name: Hepatic Function; Complete Time: 16:23 kb 10/30 15:44 Order name: Lipase; Complete Time: 16:23 kb 10/30 17:46 Order name: Glucose, Ancillary Testing; Complete Time: 17:56 EDMS 10/30 15:44 Order name: IV Saline Lock; Complete Time: 15:56 kb 10/30 15:44 Order name: Labs collected and sent; Complete Time: 15:56 kb 10/30 17:19 Order name: Blood Glucose Level; Complete Time: 17:42 kb Administered Medications: 15:56 Drug: morphine 4 mg Route: IVP; Site: right antecubital; lr4 16:30 Follow up: Response: Pain is decreased lr4 15:56 Drug: Zofran (Ondansetron) 4 mg Route: IVP; Site: right antecubital; lr4 16:30 Follow up: Response: Nausea is decreased lr4 15:57 Drug: NS 0.9% 1000 ml Route: IV; Rate: 1000 ml; Site: right antecubital; lr4 16:29 Follow up: IV Status: Infusion continued lr4 16:33 Drug: Insulin Regular Human 10 units {Co-Signature: ss (Mikaela Vasquez RN).} Route: IVP; lr4 Site: left antecubital; 18:04 Follow up: Response: No adverse reaction; Marked relief of symptoms; RASS: Alert and lr4 Calm (0) Disposition Summary: 10/30/21 17:46 Discharge Ordered Location: Home kb Condition: Stable kb Diagnosis - Other chronic pancreatitis kb - Diabetes mellitus due to underlying condition with hyperglycemia kb Followup: kb - With: Emergency Department - When: As needed - Reason: Worsening of condition Followup: kb - With: Private Physician - When: 2 - 3 days - Reason: Recheck today's complaints, Continuance of care, Re-evaluation by your physician Discharge Instructions: - Discharge Summary Sheet kb - Chronic Pancreatitis kb Forms: - Medication Reconciliation Form kb - Thank You Letter kb - Antibiotic Education kb - Prescription Opioid Use kb Prescriptions: - Zofran 4 mg Oral Tablet - take 1 tablet by ORAL route every 6 hours As needed; 20 tablet; Refills: 0, kb Product Selection Permitted Signatures: Dispatcher [employer] Marianela Bullock, Chava Lieberman Lashaunda, RN RN lr4 Mikaela Vasquez RN ss
[2021-10-30 18:09] VITALS: TEMP 97.7; O2SAT 100
[2021-10-30 18:12] VITALS: BP 131/93
== END 2021-10-30 18:05 | disposition home or self-care (01) ==
LOC: ER 15:35
DX: K86.1 Other chronic pancreatitis (principal); E11.65 Type 2 diabetes mellitus with hyperglycemia
CPT/HCPCS: 36415; 80048; 80076; 82947; 83690; 85025; 99284; J2405; J7030

== ENCOUNTER 2022-02-06 12:50 | Emergency (ER) | payer SELFPAY ==
--- OUTSIDE RECORDS SUMMARY | 2022-02-06 13:14 | XMS REPORT | Continuity of Care Document ---
:1995 Author Organization [facility] t Address [address] [place] [address] Care Team Providers Name Role Phone Hung [...] nivers adenitis adenitis 2-31 ity of 00:00: [place] 00 Medical Branch Pancreatit Pancreatit Disease Active 2009-09 U nivers is is 2-31 ity of 00:00: [place] 00 Medical Branch Abdominal Abdominal Disease Active 2009-09 Uni vers pain pain 2-30 ity of 00:00: [place] 00 Medical Branch Other acne Other acne Disease Active U nivers 8-09 ity of 00:00: [place] 00 Medical Branch Viral Viral Disease Active Overview: Univer s warts warts 8- Right ity of 00:00: [id number] [place] 00 Diagnosis 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 Allergies, Adverse Reactions, Alerts Allergy Allergy Status Severity Reaction(s) Onset Inactive Treating Comm ents Source Name Type Date Date Clinician NO KNOWN Drug Active Univers ALLERGIE Class ity of S [facility] Social History Social Habit Start Date Stop Date Quantity Comments Source Sex Assigned At Uni versity [facility] Exposure to SARS-CoV-2 Not sure Un iversity of [place] (event) Medical Branch Smoking Status Start Date Stop Date Source Unknown if ever smoked Universit y [facility] Medications Ordered Filled Start Stop Current Ordering Indication Dosage Frequency Signature Comments Components Source Medication Medication Date Date Medication? Clinician (SIG) Name Name maalox:diph 2020- No 15mL 15 mL, Uni vers enhydrAMINE 11-08 Oral, ity of :lidocaine 20:45: 20:39 ONCE, 1 Stu as 2 % viscous 00 :00 dose, Sat Med ical 1:1:1 11/08/20 at [place] (FIRST-MOUT 1445, MARITA HWASH BLM) oral suspension 15 mL insulin 2020- No 9U 9 Units, [facility] Areae rs regular 11-08 Slow IV ity of human 20:30: 19:39 Push, [place] (HUMULIN R) 00 :00 ONCE, 1 Medic al injection 9 dose, Sat [facility] Units 11/08/20 at 1430, STAT ondansetron 2020- No 4mg 4 mg, Slow Univers (ZOFRAN 11-08 IV Push, ity of (PF)) 19:45: 18:49 ONCE, 1 [place] injection 4 00 :00 dose, Sat Med ical mg 11/08/20 at [place] 1345, MARITA morpHINE 2020- No 4mg 4 mg, Slow Un brendan injection 4 11-08 IV Push, ity of mg 19:45: 18:49 ONCE, 1 [place] 00 :00 dose, Sat Medical 11/08/20 at [place] 1345, STAT NaCl 0.9% 2020- No 1000mL at 999 Uni vers (NS) bolus 11-08-06 mL/hr, ity of infusion 19:30: 20:37 1,000 mL, Stu as 1,000 mL 00 :00 IV Medical Infusion, [place] ONCE, 1 dose, 11/08/20 at 1330, MARITA NaCl 0.9% 2020- No 1000mL at 999 Uni vers (NS) bolus 3 03-06 mL/hr, ity of infusion 18:30: 19:39 1,000 mL, Stu as 1,000 mL 00 :00 IV Medical Infusion, [place] ONCE, 1 dose, 11/08/20 at 1230, MARITA ondansetron Yes [id number] 4mg Take 1 Univers (ZOFRAN 3-06 tablet by ity of ODT) 4 mg 00:00: mouth [place] disintegrat 00 every 8 Medic al ing tablet (eight) Branch hours as needed for Nausea and Vomiting (N/V). dicyclomine Yes [id number] 20mg Take 1 Univers 20 mg 3-06 tablet by ity of tablet 00:00: mouth 4 [place] 00 (four) Medical times Branch daily as needed for Abdominal pain. No known No [facility] medications [facility] Vital Signs Vital Name Observation Time Observation Value Comments Source Systolic blood 2020-11-08 21:00:00 136 mm[Hg] [facility] Diastolic blood 2020-11-08 21:00:00 95 mm[Hg] [facility] Heart rate 2020-11-08 21:00:00 93 /min [facility] Respiratory rate 2020-11-08 21:00:00 16 /min [facility] Oxygen saturation in 2020-11-08 21:00:00 98 /min [facility] Arterial blood by [facility] Pulse oximetry [place] Body temperature 2020-11-08 18:12:00 36.44 Zenaida [facility] Body height 2020-11-08 18:12:00 175.3 cm [facility] Body weight 2020-11-08 18:12:00 92.987 kg [facility] BMI 2020-11-08 18:12:00 30.27 kg/m2 [facility] Procedures Procedure Date / Time Performed Performing Clinician Sour e POCT GLUCOSE 2020-11-08 20:26:00 Pearce, Silvia [facility] (AUTOMATED) [facility] Branch LIPASE 2020-11-08 18:29:00 [facility] HEPATIC FUNCTION PANEL 2020-11-08 18:29:00 PearceSilvia parsons [facility] ([id number]) [facility] (ALB,T.PRO,BILI T,BU/BC,ALT,AST,ALK PHOS) BASIC METABOLIC PANEL 2020-11-08 18:29:00 PearceSilvia parsons [facility] (NA, K, CL, CO2, Medical Branch GLUCOSE, BUN, CREATININE, CA) CBC WITH DIFF 2020-11-08 18:29:00 Silvia Pearce [facility] URINALYSIS 2020-11-08 18:29:00 Silvia Pearce [facility] NOTICE OF PRIVACY 2020-11-08 18:06:16 Doctor Unassigned, No Univ [facility] PRACTICES Name [facility] CONSENT/REFUSAL FOR 2020-11-08 18:06:04 Doctor Unassigned, No [facility] DIAGNOSIS AND Name [facility] TREATMENT Encounters Start End Encounter Admission Attending Care Care Encounter Source Date/Time Date/Time Type Type Clinicians Facility Department ID 2021-09-30 Outpatient STLMLC [facility] [id number] Common 12:34:38 [id number] [facility] 2020-11-08 2020-11-08 [facility] [id number] Univers 12:16:00 15:38:00 Silvia Laurent [id number] i ty [facility] [id number] [facility] [id number] [facility] 084 Branch 2020-11-08 2020-11-08 Emergency X [facility] ERT [id number] Univers 12:06:00 12:06:00 SILVIA laurent [facility] 2020-11-08 2020-11-08 Orders Doctor GONZALEZ [id number] Univers 00:00:00 00:00:00 Only Unassigned, JOSE [id number] ity of [place] [facility] [id number] [facility] [id number] [facility] 009 Branch Results Test Description Test Time Test Comments Results Result Comments Source POCT GLUCOSE (AUTOMATED) 2020-11-08 20:30:00 Test Item Value Reference Range Interpretation Comme nts POCT GLU (test code = 1903209044) 181 mg/dL 70-110 H Lab Interpretation (test code = 74531-1) Abnormal [facility] (NA, K, CL, CO2, GLUCOSE, BUN, CREATININE, CA)2020-11-08 18:48:00 Test Item Value Reference Range Interpretation Comments NA (test code = 134 mmol/L 135-145 L 2500256473) K (test code = 4.0 mmol/L 3.5-5 8761718458) CL (test code = 96 mmol/L 98-108 L 0047946275) CO2 TOTAL (test code = 29 mmol/L 23-31 0631289944) AGAP (test code = 2-16 8046810962) BUN (test code = 10 mg/dL 7-23 9022217128) GLUCOSE (test code = 368 mg/dL 70-110 H 3066384600) CREATININE (test code = 0.58 mg/dL 0.6-1.25 L 6554948049) CALCIUM (test code = 9.1 mg/dL 8.6-10.6 8889465884) eGFR Calculation mL/min/1.73m2 (Non-) (test code = 6093886047) eGFR Calculation mL/min/1.73m2 () (test code = 6990648982) RAFAEL (test code = RAFAEL) Association of [...] tests). Lab Interpretation Abnormal (test code = 95568-3) [facility] (ALB, T.PRO, BILI T, BU/BC, ALT, AST, ALK PHOS)2020-11-08 18:48:00 Test Item Value Reference Range Interpretation Comments TOTAL BILI (test code = 1612476017) 0.8 mg/dL 0.1-1.1 BILI UNCON (test code = 3299381731) 0.8 mg/dL 0.1-1.1 BILI CONJ (test code = 9899908060) 0.0 mg/dL 0-0.3 T PROTEIN (test code = 8687942023) 7.8 g/dL 6.3-8.2 ALBUMIN (test code = 7206014849) 4.7 g/dL 3.5-5 ALK PHOS (test code = 5492699992) 147 U/L 34-122 H ALTv (test code = 1742-6) 48 U/L 5-50 AST(SGOT) (test code = 1907784408) 42 U/L 13-40 H Lab Interpretation (test code = Abnormal 22436-4) [facility] Center[facility] Orthf8716-46-30 18:48:00 Test Item Value Reference Range Interpretation Comments LIPASE (test code = 4940338241) 27 U/L 0-220 Lab Interpretation (test code = Normal 80679-0) [facility]2021-[facility]-06 18:39:00 Test Item Value Reference Range Interpretation Comments APPEARANCE (test code = Clear Clear 6719578591) COLOR (test code = Yellow Yellow 5797890725) PH (test code = 4.8-8.0 4724532223) SP GRAVITY (test code = 1.003-1.030 H 5573132369) GLU U QUAL (test code = 500 mg/dL Normal A 4894769141) BLOOD (test code = Negative Negative 5973803956) KETONES (test code = 5 mg/dL Negative A 7880578781) PROTEIN (test code = Negative Negative 2887-8) UROBILIN (test code = Normal Normal 1038652542) BILIRUBIN (test code = Negative Negative 9122775628) NITRITE (test code = Negative Negative 6461972521) LEUK ALYSHA (test code = Negative Negative 6658747570) RBC/HPF (test code = See_Comment [Autom ated message] 7407356512) The system [employer]) generated this result transmit patricio reference range : 0 - 3 HPF. The refe rence range was not u sed to interpret th is result as normal/abnormal . WBC/HPF (test code = See_Comment [Autom ated message] 2308732381) The system [employer] ([employer]) generated this result transmit patricio reference range : 0 - 5 HPF. The refe rence range was not u sed to interpret th is result as normal/abnormal . BACTERIA (test code = Negative Negative 0010728664) Lab Interpretation (test Abnormal code = 60370-8) [facility] with Hgrkmhjetjnj1331-06-99 18:36:00 Test Item Value Reference Range Interpretation [...] (test code = 33.7 fL 38.5-51.6 L 82829-7) RDW-CV (test code = 11.5 % 12.1-15.4 L 788-0) PLT (test code = See_Comment H [Automated 777-3) message] The sy stem which generated this result transmitted reference range : 150 - 328 10*3/ ?L. The reference r teresita was not used to interpret this result as normal/abnormal . MPV (test code = 10.2 fL 9.8-13 93289-6) NRBC/100 WBC (test See_Comment [Automat ed code = 3291916952) message] The system which generated this result transmitted reference range : 0.0 - 10.0 /100 WBCs. The refer ence range was not u sed to interpret th is result as normal/abnormal . NRBC x10^3 (test code <0.01 See_Comment [Auto mated = 2350523698) message] The s ystem which generated this result transmitted reference range : 10*3/?L. The reference range was not used to interpret this result as normal/abnormal . GRAN MAT (NEUT) % 60.3 % (test code = 770-8) IMM GRAN % (test code 0.70 % = 6610549655) LYMPH % (test code = 29.2 % 736-9) MONO % (test code = 4.7 % 5905-5) EOS % (test code = 3.9 % 713-8) BASO % (test code = 1.2 % 706-2) GRAN MAT x10^3(ANC) 6.44 10*3/uL 1.99-6.95 (test code = 2339778248) IMM GRAN x10^3 (test 0.07 10*3/uL 0-0.06 H code = 1015186877) LYMPH x10^3 (test code 3.12 10*3/uL 1.09-3.23 = 731-0) MONO x10^3 (test code 0.50 10*3/uL 0.36-1.02 = 742-7) EOS x10^3 (test code = 0.42 10*3/uL 0.06-0.53 711-2) BASO x10^3 (test code 0.13 10*3/uL 0.01-0.09 H = 704-7) Lab Interpretation Abnormal (test code = 18438-2) [facility]"
[2022-02-06 13:35] LABS: Absolute Lymphocytes (CBC) 2.9 K/uL (0.7-4.9); Hematocrit 49.3 % (39.6-49.0); MPV 8.7 fL (7.6-11.3); RBC Red Blood Cell Count 5.78 M/uL (4.33-5.43)
[2022-02-06 13:44] LABS: Albumin 4.1 g/dL (3.4-5.0); Bilirubin Total 0.9 mg/dL (0.2-1.0); Potassium 3.9 mmol/L (3.5-5.1); Protein, Total 7.6 g/dL (6.4-8.2)
[2022-02-06] MEDS ORDERED: PANTOPRAZOLE 40 MG INJ ONE (14:10)
[2022-02-06] MEDS ORDERED: MORPHINE 4 MG/ML SYR ONE (14:10)
[2022-02-06] MEDS ORDERED: NA CHLORIDE 0.9% 2,000 ML ONE (14:10)
[2022-02-06] MEDS ORDERED: ONDANSETRON 4 MG/2 ML VIAL ONE (14:10)
--- NOTE | 2022-02-06 14:53 | RAD REPORT ---
EXAM DESCRIPTION: CT - Abdomen Pelvis W Contrast - 02/06/2022 2:30 pm CLINICAL HISTORY: Abdominal pain COMPARISON: 2020 TECHNIQUE: Computed axial tomography of the abdomen pelvis was obtained. 100 cc Isovue-300 was admin istered intravenously. Oral contrast was not requested which limits evaluation of bowel and appendix All CT scans are performed using dose optimization technique as appropriate and may include automated exposure control or mA/KV adjustment according to patient size. FINDINGS: Coarse calcifications are present within the pancreas. The pancreas is atrophic. No pseudo cyst. These findings are compatible with chronic pancreatitis. Fatty liver. Spleen, adrenals kidneys unremarkable. There is no evidence of diverticulitis. Normal appendix Moderate amount of stool within the colon IMPRESSION: Chronic pancreatitis
--- NOTE | 2022-02-06 15:01 | RAD REPORT ---
EXAM DESCRIPTION: Rama Single View02/06/2022 2:42 pm CLINICAL HISTORY: Abdominal pain COMPARISON: 2019 FINDINGS: The lungs appear clear of acute infiltrate. The heart is normal size IMPRESSION: No acute abnormalities displayed
--- NOTE | 2022-02-06 15:02 | EDPHYS ---
Physician Documentation [facility] Name: Jimenez Patrick Age: 26 yrs Sex: Male : 1995 Arrival Date: 02/06/2022 Time: 12:52 Bed 17 Private MD: ARMIDA Physician Luis Laura HPI: 02/06 14:01 This 26 yrs old Male presents to ER via Ambulatory with complaints of salbador Abdominal Cramping. Historical: - Allergies: 12:58 NKA; ll1 - PMHx: 12:58 Chronic Pancreatitis; Diabetes - IDDM; ll1 - PSHx: 12:58 Cholecystectomy; I\T\D; stents x 2 in pancreas; ll1 - Immunization history:: Client reports receiving the 1st dose of the Covid vaccine. - Social history:: Smoking status: Patient denies any tobacco usage or history of. ROS: 14:02 Constitutional: Negative for fever, chills, and weight loss, Eyes: Negative for injury, salbador pain, redness, and discharge, ENT: Negative for injury, pain, and discharge, Neck: Negative for injury, pain, and swelling, Cardiovascular: Negative for chest pain, palpitations, and edema, Respiratory: Negative for shortness of breath, cough, wheezing, and pleuritic chest pain, Back: Negative for injury and pain, : Negative for injury, bleeding, discharge, and swelling, MS/Extremity: Negative for injury and deformity, Skin: Negative for injury, rash, and discoloration, Neuro: Negative for headache, weakness, numbness, tingling, and seizure, Psych: Negative for depression, anxiety, suicide ideation, homicidal ideation, and hallucinations, Allergy/Immunology: Negative for hives, rash, and allergies, Endocrine: Negative for neck swelling, polydipsia, polyuria, polyphagia, and marked weight changes, Hematologic/Lymphatic: Negative for swollen nodes, abnormal bleeding, and unusual bruising. 14:02 Abdomen/GI: Positive for abdominal pain, nausea and vomiting, of the right upper quadrant and left upper quadrant. Exam: 14:02 Constitutional: This is a well developed, well nourished patient who is awake, alert, salbador and in no acute distress. Head/Face: Normocephalic, atraumatic. Eyes: Pupils equal round and reactive to light, extra-ocular motions intact. Lids and lashes normal. Conjunctiva and sclera are non-icteric and not injected. Cornea within normal limits. Periorbital areas with no swelling, redness, or edema. ENT: Nares patent. No nasal discharge, no septal abnormalities noted. Tympanic membranes are normal and external auditory canals are clear. Oropharynx with no redness, swelling, or masses, exudates, or evidence of obstruction, uvula midline. Mucous membranes moist. Neck: Trachea midline, no thyromegaly or masses palpated, and no cervical lymphadenopathy. Supple, full range of motion without nuchal rigidity, or vertebral point tenderness. No Meningismus. Chest/axilla: Normal chest wall appearance and motion. Nontender with no deformity. No lesions are appreciated. Cardiovascular: Regular rate and rhythm with a normal S1 and S2. No gallops, murmurs, or rubs. Normal PMI, no JVD. No pulse deficits. Respiratory: Lungs have equal breath sounds bilaterally, clear to auscultation and percussion. No rales, rhonchi or wheezes noted. No increased work of breathing, no retractions or nasal flaring. Back: No spinal tenderness. No costovertebral tenderness. Full range of motion. Male : Normal genitalia with no discharge or lesions. Skin: Warm, dry with normal turgor. Normal color with no rashes, no lesions, and no evidence of cellulitis. MS/ Extremity: Pulses equal, no cyanosis. Neurovascular intact. Full, normal range of motion. Neuro: Awake and alert, GCS 15, oriented to person, place, time, and situation. Cranial nerves II-XII grossly intact. Motor strength 5/5 in all extremities. Sensory grossly intact. Cerebellar exam normal. Normal gait. Psych: Awake, alert, with orientation to person, place and time. Behavior, mood, and affect are within normal limits. 14:02 Abdomen/GI: Inspection: abdomen appears normal, Bowel sounds: normal, Palpation: mild abdominal tenderness, in the epigastric area, right upper quadrant and left upper quadrant, Liver: no appreciated palpable abnormalities, Hernia: not appreciated. Vital Signs: 12:58 BP 136 / 89; Pulse 69; Resp 16; Temp 98.6; Pulse Ox 99% ; Weight 90.72 kg; Height 5 ft. ll1 9 in. (175.26 cm); Pain 6/10; 13:45 BP 120 / 82; Pulse 88; Resp 20; Pulse Ox 99% ; ww 14:45 BP 127 / 91; Pulse 76; Resp 19; Pulse Ox 100% ; ww 15:45 BP 137 / 89; Pulse 70; Resp 16; Pulse Ox 100% ; ww 16:58 BP 134 / 91; Pulse 69; Resp 18; Pulse Ox 100% ; ww 12:58 Body Mass Index 29.54 (90.72 kg, 175.26 cm) ll1 MDM: 12:58 Patient medically screened. [facility] 14:04 Differential diagnosis: bowel obstruction, Cholelithiasis, gastritis, non-specific abd salbador pain, pancreatitis. Data reviewed: vital signs, nurses notes, lab test result(s), radiologic studies, CT scan. 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 Counseling: I had a detailed discussion with the patient and/or guardian regarding: the historical points, exam findings, and any diagnostic results supporting the discharge/admit diagnosis, lab results, radiology results. 02/06 13:31 Order name: Comprehensive Metabolic Panel; Complete Time: 13:52 [facility]NY 02/06 13:31 Order name: Lipase; Complete Time: 13:52 [facility] 02/06 13:31 Order name: CBC with Automated Diff; Complete Time: 13:52 [facility] 02/06 14:01 Order name: CT Abd/Pelvis - IV Contrast Only; Complete Time: 15:00 [facility] 02/06 14:06 Order name: Chest Single View XRAY [facility] 02/06 13:10 Order name: IV Saline Lock; Complete Time: 13:14 [facility] 02/06 13:10 Order name: Labs collected and sent; Complete Time: 13:14 [facility] Administered Medications: 14:05 Drug: Zofran (Ondansetron) 4 mg Route: IVP; Site: right forearm; ww 14:05 Drug: NS 0.9% 1000 ml Route: IV; Rate: 1 bolus; Site: right forearm; ww 14:06 Drug: ProTONIX (pantoprazole) 40 mg Route: IVP; Site: right forearm; ww 14:08 Drug: morphine 4 mg Route: IVP; Infused Over: 4 mins; Site: right forearm; ww 14:13 Not Given (Other Intervention Used): Pepcid (famotidine) 20 mg IVP once; dilute with 10 ww mL 0.9% NaCl; give over 2 minutes 15:04 CANCELLED (Duplicate Order): NS 0.9% 1000 ml IV at 1 bolus Per protocol; 1000 mL bolus salbador 15:04 CANCELLED (Duplicate Order): NS 0.9% 1000 ml IV at 1 bolus Per protocol; 1000 mL bolus salbador 15:24 Drug: Insulin Regular Human 8 units {Co-Signature: ph (Laine Alvarez RN).} Route: IVP; ww Site: right forearm; 15:39 Drug: NS 0.9% 1000 ml Route: IV; Rate: 1 bolus; Site: right forearm; ww Disposition Summary: 02/06/22 15:01 Discharge Ordered Location: Home salbador Problem: new salbador Symptoms: have improved salbador Condition: Stable salbador Diagnosis - Abdominal pain, unspecified salbador - Type 2 diabetes mellitus with hyperglycemia salbador - Other chronic pancreatitis salbador Followup: salbador - With: Private Physician - When: 2 - 3 days - Reason: Recheck today's complaints, Continuance of care, Re-evaluation by your physician Followup: salbador - With: Phil Jeffers MD - When: 2 - 3 days - Reason: Recheck today's complaints, Re-evaluation by your physician Discharge Instructions: - Discharge Summary Sheet salbador - Abdominal Pain, Adult salbador - Hyperglycemia salbador - Hyperglycemic Hyperosmolar State salbador - Chronic Pancreatitis salbador - Diabetes Mellitus and Nutrition, Adult salbador - Pancreatitis Eating Plan salbador Forms: - Medication Reconciliation Form salbador - Thank You Letter salbador - Antibiotic Education salbador - Prescription Opioid Use salbador Prescriptions: - Protonix 40 mg Oral Tablet - take 1 tablet by ORAL route once daily; 30 tablet; Refills: 0, Product salbador Selection Permitted - Zofran 4 mg Oral Tablet - take 1 tablet by ORAL route 3 times per day As needed; 20 tablet; Refills: 0, salbador Product Selection Permitted - dicyclomine 20 mg Oral Tablet - take 1 tablet by ORAL route 4 times per day; 26 tablet; Refills: 0, Product salbador Selection Permitted Signatures: Dispatcher [employer] Luis Reynoso MD MD cha Lewis, Lynsay, RN RN ll1 Elda Jaimes RN RN ww Laine Alvarez RN ph Corrections: (The following items were deleted from the chart) 15:04 14:01 NS 0.9% 1000 ml IV at 1 bolus Per protocol; 1000 mL bolus ordered. salbador salbador 15:04 15:01 NS 0.9% 1000 ml IV at 1 bolus Per protocol; 1000 mL bolus ordered. salbador siu
--- NOTE | 2022-02-06 15:02 | ER ---
Nurse's Notes [facility] Name: Jimenez Patrick Age: 26 yrs Sex: Male : 1995 Arrival Date: 02/06/2022 Time: 12:52 Bed 17 Private MD: Diagnosis: Abdominal pain, unspecified;Type 2 diabetes mellitus with hyperglycemia;Other chronic pancreatitis Presentation: 02/06 12:58 Chief complaint: Patient states: Upper abd pain started today with nausea. Coronavirus ll1 screen: Vaccine status: Patient reports receiving the 1st dose of the Covid vaccine. Client denies travel out of the [place] in the last 14 days. At this time, the client does not indicate any symptoms associated with coronavirus-19. Ebola Screen: Patient denies travel to an Ebola-affected area in the 21 days before illness onset. Initial Sepsis Screen: Does the patient meet any 2 criteria? No. Patient's initial sepsis screen is negative. Does the patient have a suspected source of infection? Yes: Acute abdominal pain. Risk Assessment: Do you want to hurt yourself or someone else? Patient reports no desire to harm self or others. Onset of symptoms was February 06, 2022. 12:58 Method Of Arrival: Ambulatory ll1 12:58 Acuity: MOSES 3 ll1 Triage Assessment: 13:00 General: Appears in no apparent distress. Behavior is calm, cooperative, appropriate ll1 for age. Pain: Complains of pain in abdomen Quality of pain is described as aching, crampy. GI: Reports upper abdominal pain, nausea. Historical: - Allergies: 12:58 NKA; ll1 - PMHx: 12:58 Chronic Pancreatitis; Diabetes - IDDM; ll1 - PSHx: 12:58 Cholecystectomy; I\T\D; stents x 2 in pancreas; ll1 - Immunization history:: Client reports receiving the 1st dose of the Covid vaccine. - Social history:: Smoking status: Patient denies any tobacco usage or history of. Screenin:08 Abuse screen: Denies threats or abuse. Denies injuries from another. Nutritional ww screening: No deficits noted. Tuberculosis screening: No symptoms or risk factors identified. Fall Risk None identified. Assessment: 13:30 General: Appears uncomfortable, Behavior is cooperative. Pain: Complains of pain in ww right upper quadrant and left upper quadrant. Neuro: Level of Consciousness is awake, alert, obeys commands, Oriented to person, place, time, situation, [employer] Consultant are equal bilaterally Moves all extremities. Gait is steady. Cardiovascular: Capillary refill < 3 seconds Patient's skin is warm and dry. Respiratory: Airway is patent Respiratory effort is even, unlabored, Respiratory pattern is regular, symmetrical. GI: Abdomen is non-distended, Abd is soft X 4 quads Abdomen is tender to palpation in right upper quadrant and left upper quadrant. Derm: Skin is intact, is healthy with good turgor. 15:53 Reassessment: Patient appears in no apparent distress at this time. No changes from previously documented assessment. Patient and/or family updated on plan of care and expected duration. Pain level reassessed. Patient is alert, oriented x 3, equal unlabored respirations, skin warm/dry/pink. Patient states feeling better. 16:25 Reassessment: Patient appears in no apparent distress at this time. No changes from ww previously documented assessment. Patient and/or family updated on plan of care and expected duration. Pain level reassessed. Patient is alert, oriented x 3, equal unlabored respirations, skin warm/dry/pink. Vital Signs: 12:58 BP 136 / 89; Pulse 69; Resp 16; Temp 98.6; Pulse Ox 99% ; Weight 90.72 kg; Height 5 ft. ll1 9 in. (175.26 cm); Pain 6/10; 13:45 BP 120 / 82; Pulse 88; Resp 20; Pulse Ox 99% ; ww 14:45 BP 127 / 91; Pulse 76; Resp 19; Pulse Ox 100% ; ww 15:45 BP 137 / 89; Pulse 70; Resp 16; Pulse Ox 100% ; ww 16:58 BP 134 / 91; Pulse 69; Resp 18; Pulse Ox 100% ; ww 12:58 Body Mass Index 29.54 (90.72 kg, 175.26 cm) ll1 ED Course: 12:52 Patient arrived in ED. jj6 12:54 Gerber Laguna PA is PHCP. jmm 12:54 Luis Laura MD is Attending Physician. jmm 12:58 Luis Laura MD is Attending Physician. salbador 12:59 Triage completed. ll1 12:59 Arm band placed on Patient placed in an exam room, on a stretcher. ll1 13:08 Elda Jaimes, RN is Primary Nurse. ww 13:08 Patient has correct armband on for positive identification. Bed in low position. Call ww light in reach. Side rails up X 1. Pulse ox on. NIBP on. Warm blanket given. 13:08 Inserted saline lock: 20 gauge in right forearm, using aseptic technique. Blood ww collected. 13:30 No provider procedures requiring assistance completed. ww 14:31 CT Abd/Pelvis - IV Contrast Only In Process Unspecified. EDMS 14:44 Chest Single View XRAY In Process Unspecified. EDMS 15:02 Phil Jeffers MD is Referral Physician. [facility] 17:00 IV discontinued, bleeding controlled, No redness/swelling at site. Pressure dressing ww applied. Administered Medications: 14:05 Drug: Zofran (Ondansetron) 4 mg Route: IVP; Site: right forearm; ww 14:05 Drug: NS 0.9% 1000 ml Route: IV; Rate: 1 bolus; Site: right forearm; ww 14:06 Drug: ProTONIX (pantoprazole) 40 mg Route: IVP; Site: right forearm; ww 14:08 Drug: morphine 4 mg Route: IVP; Infused Over: 4 mins; Site: right forearm; ww 14:13 Not Given (Other Intervention Used): Pepcid (famotidine) 20 mg IVP once; dilute with 10 ww mL 0.9% NaCl; give over 2 minutes 15:04 CANCELLED (Duplicate Order): NS 0.9% 1000 ml IV at 1 bolus Per protocol; 1000 mL bolus salbador 15:04 CANCELLED (Duplicate Order): NS 0.9% 1000 ml IV at 1 bolus Per protocol; 1000 mL bolus [facility] 15:24 Drug: Insulin Regular Human 8 units {Co-Signature: ph (Laine Alvarez RN).} Route: IVP; ww Site: right forearm; 15:39 Drug: NS 0.9% 1000 ml Route: IV; Rate: 1 bolus; Site: right forearm; ww Medication: 13:30 VIS not applicable for this client. ww Outcome: 15:01 Discharge ordered by . [facility] 17:00 Discharged to home ambulatory. ww 17:00 Condition: stable 17:00 Discharge instructions given to patient, Instructed on discharge instructions, follow up and referral plans. medication usage, safety practices, Demonstrated understanding of instructions, follow-up care, medications, Prescriptions given X 3. 17:00 Patient left the ED. ww Signatures: Dispatcher [employer] EDLuis Gonzales MD MD cha Mickail, Joel, PA PA jmm Lewis, Lynsay, RN RN ll1 Kaye Sanders Whitney, RN RN ww Laine Alvarez RN ph Corrections: (The following items were deleted from the chart) 13:00 12:58 BP 136 / 89; Pulse 69bpm; Resp 16bpm; Pulse Ox 99%; 90.72 kg; Height 5 ft. 9 in.; ll1 BMI: 29.5; Pain 6/10; ll1
[2022-02-06] MEDS ORDERED: INSULIN -REGULAR HUMAN 50 UNIT/0.5 ML ML ONE (15:27)
[2022-02-06 17:18] VITALS: TEMP 98.6
[2022-02-06 17:22] VITALS: O2SAT 100
[2022-02-06 17:30] VITALS: BP 134/91
== END 2022-02-06 17:00 | disposition home or self-care (01) ==
LOC: ER 12:50
DX: R10.10 Upper abdominal pain, unspecified (principal); E11.65 Type 2 diabetes mellitus with hyperglycemia; K86.1 Other chronic pancreatitis
CPT/HCPCS: 36415; 71045; 74177; 80053; 82947; 83690; 85025; 96374; 96375; 99284; C9113; J1815; J2405; J7030; Q9967

== ENCOUNTER 2022-02-08 13:03 | Emergency (ER) | payer SELFPAY ==
--- OUTSIDE RECORDS SUMMARY | 2022-02-08 13:05 | XMS REPORT | Continuity of Care Document ---
:[address] [facility] t Address [address] [place] [address] Care Team Providers Name Role Phone Hung [...] nivers adenitis adenitis 2-31 ity of 00:00: [place] 00 Medical Branch Pancreatit Pancreatit Disease Active 2009-09 U nivers is is 2-31 ity of 00:00: [place] 00 Medical Branch Abdominal Abdominal Disease Active 2009-09 Uni vers pain pain 2-30 ity of 00:00: [place] 00 Medical Branch Other acne Other acne Disease Active U nivers 8-09 ity of 00:00: [place] 00 Medical Branch Viral Viral Disease Active Overview: Univer s warts warts 8-09 Right ity of 00:00: [id number] [place] 00 Diagnosis Medical Term Branch [employer] Utility Allergies, Adverse Reactions, Alerts Allergy Allergy Status Severity Reaction(s) Onset Inactive Treating Comm ents Source Name Type Date Date Clinician NO KNOWN Drug Active Univers ALLERGIE Class ity of [facility] Social History Social Habit Start Date Stop Date Quantity Comments Source Sex Assigned At Uni versity [facility] Exposure to SARS-CoV-2 Not sure Un [facility]versity [facility] [place] (event) Medical Branch Smoking Status Start Date Stop Date Source Unknown if ever smoked Universit y [facility] Medications Ordered Filled Start Stop Current Ordering Indication Dosage Frequency Signature Comments Components Source Medication Medication Date Date Medication? Clinician (SIG) Name Name maalox:diph 2020- No 15mL 15 mL, Uni vers enhydrAMINE 11-08 Oral, ity of :lidocaine 20:45: 20:39 ONCE, 1 Stu as 2 % viscous 00 :00 dose, Sat Med ical 1:1:1 11/08/20 at [place] (FIRST-MOUT 1445, MARITA HWASH BLM) oral suspension 15 mL insulin 2020- No [facility]U [facility] Slow IV ity of human 20:30: 19:39 Push, [place] (HUMULIN R) 00 :00 ONCE, 1 Medic al injection 9 dose, Sat Bra [facility] Units 11/08/20 at 1430, STAT ondansetron 2020- No 4mg 4 mg, Slow Univers (ZOFRAN 11-08 IV Push, ity of (PF)) 19:45: 18:49 ONCE, 1 [place] injection 4 00 :00 dose, Sat Med ical mg 11/08/20 at [place] 1345, MARITA morpHINE 2020- No 4mg 4 mg, Slow Un brendan injection 4 11-08 IV Push, ity of mg 19:45: 18:49 ONCE, 1 [place] 00 :00 dose, Sat Medical 11/08/20 at [place] 1345, STAT NaCl 0.9% 2020- No 1000mL at 999 Uni vers (NS) bolus 11-08-06 mL/hr, ity of infusion 19:30: 20:37 1,000 mL, Stu as 1,000 mL 00 :00 IV Medical Infusion, [place] ONCE, 1 dose, 11/08/20 at 1330, MARITA NaCl 0.9% 2020- No 1000mL at 999 Uni vers (NS) bolus 3 03-06 mL/hr, ity of infusion 18:30: 19:39 1,000 mL, Stu as 1,000 mL 00 :00 IV Medical Infusion, [place] ONCE, 1 dose, 11/08/20 at 1230, MARITA ondansetron Yes [id number] 4mg Take 1 Univers (ZOFRAN 3-06 tablet by ity of ODT) 4 mg 00:00: mouth [place] disintegrat 00 every 8 Medic al ing tablet (eight) Branch hours as needed for Nausea and Vomiting (N/V). dicyclomine Yes [id number] 20mg Take 1 Univers 20 mg 3-06 tablet by ity of tablet 00:00: mouth 4 [place] 00 (four) Medical times Branch daily as needed for Abdominal pain. No known No [facility] medications [facility] Vital Signs Vital Name Observation Time Observation Value Comments Source Systolic blood 2020-11-08 21:00:00 136 mm[Hg] [facility] Diastolic blood 2020-11-08 21:00:00 95 mm[Hg] [facility] Heart rate 2020-11-08 21:00:00 93 /min [facility] Respiratory rate 2020-11-08 21:00:00 16 /min [facility] Oxygen saturation in 2020-11-08 21:00:00 98 /min [facility] Arterial blood by [facility] Pulse oximetry [place] Body temperature 2020-11-08 18:12:00 36.44 Zenaida [facility] Body height 2020-11-08 18:12:00 175.3 cm [facility] Body weight 2020-11-08 18:12:00 92.987 kg [facility] BMI 2020-11-08 18:12:00 30.27 kg/m2 [facility] Procedures Procedure Date / Time Performed Performing Clinician Sour e POCT GLUCOSE 2020-11-08 20:26:00 Pearce, Silvia [facility] (AUTOMATED) [facility] Branch LIPASE 2020-11-08 18:29:00 [facility] HEPATIC FUNCTION PANEL 2020-11-08 18:29:00 PearceSilvia parsons [facility] ([id number]) [facility] (ALB,T.PRO,BILI T,BU/BC,ALT,AST,ALK PHOS) BASIC METABOLIC PANEL 2020-11-08 18:29:00 PearceSilvia parsons [facility] (NA, K, CL, CO2, Medical Branch GLUCOSE, BUN, CREATININE, CA) CBC WITH DIFF 2020-11-08 18:29:00 Silvia Pearce [facility] URINALYSIS 2020-11-08 18:29:00 Silvia Pearce [facility] NOTICE OF PRIVACY 2020-11-08 18:06:16 Doctor Unassigned, No Univ [facility] PRACTICES Name [facility] CONSENT/REFUSAL FOR 2020-11-08 18:06:04 Doctor Unassigned, No [facility] DIAGNOSIS AND Name [facility] TREATMENT Encounters Start End Encounter Admission Attending Care Care Encounter Source Date/Time Date/Time Type Type Clinicians Facility Department ID 2021-09-30 Outpatient [facility] [id number] Common 12:34:38 [id number] [facility] 2020-11-08 2020-11-08 [facility] [id number] Univers 12:16:00 15:38:00 Silvia Laurent [id number] i ty [facility] [id number] [facility] [id number] [facility] 084 Branch 2020-11-08 2020-11-08 Emergency X [facility] ERT [id number] Univers 12:06:00 12:06:00 SILVIA laurent [facility] 2020-11-08 2020-11-08 Orders Doctor GONZALEZ [id number] Univers 00:00:00 00:00:00 Only Unassigned, JOSE [id number] [facility] [id number] [facility] [place] [facility] [id number] [facility] 009 Branch Results Test Description Test Time Test Comments Results Result Comments Source POCT GLUCOSE (AUTOMATED) 2020-11-08 20:30:00 Test Item Value Reference Range Interpretation Comme nts POCT GLU (test code = 0681524980) 181 mg/dL 70-110 H Lab Interpretation (test code = 49578-7) Abnormal [facility] (NA, K, CL, CO2, GLUCOSE, BUN, CREATININE, CA)2020-11-08 18:48:00 Test Item Value Reference Range Interpretation Comments NA (test code = 134 mmol/L 135-145 L 5735632750) K (test code = 4.0 mmol/L 3.5-5 7141405501) CL (test code = 96 mmol/L 98-108 L 4275326564) CO2 TOTAL (test code = 29 mmol/L 23-31 0545233657) AGAP (test code = 2-16 2144567366) BUN (test code = 10 mg/dL 7-23 7953840275) GLUCOSE (test code = 368 mg/dL 70-110 H 0002684488) CREATININE (test code = 0.58 mg/dL 0.6-1.25 L 4609352715) CALCIUM (test code = 9.1 mg/dL 8.6-10.6 1869524999) eGFR Calculation mL/min/1.73m2 (Non-) (test code = 8186307929) eGFR Calculation mL/min/1.73m2 () (test code = 3235574913) RAFAEL (test code = RAFAEL) Association of [...] tests). Lab Interpretation Abnormal (test code = 83151-9) [facility] (ALB, T.PRO, BILI T, BU/BC, ALT, AST, ALK PHOS)2020-11-08 18:48:00 Test Item Value Reference Range Interpretation Comments TOTAL BILI (test code = 3291431705) 0.8 mg/dL 0.1-1.1 BILI UNCON (test code = 8511704482) 0.8 mg/dL 0.1-1.1 BILI CONJ (test code = 0435616512) 0.0 mg/dL 0-0.3 T PROTEIN (test code = 6245453669) 7.8 g/dL 6.3-8.2 ALBUMIN (test code = 2567478135) 4.7 g/dL 3.5-5 ALK PHOS (test code = 2245492862) 147 U/L 34-122 H ALTv (test code = 1742-6) 48 U/L 5-50 AST(SGOT) (test code = 5541057675) 42 U/L 13-40 H Lab Interpretation (test code = Abnormal 98300-4) [facility] [id number] 18:48:00 Test Item Value Reference Range Interpretation Comments LIPASE (test code = 8956961322) 27 U/L 0-220 Lab Interpretation (test code = Normal 90223-4) [facility]21-[facility]-06 18:39:00 Test Item Value Reference Range Interpretation Comments APPEARANCE (test code = Clear Clear 0005986111) COLOR (test code = Yellow Yellow 0921521068) PH (test code = 4.8-8.0 8554963145) SP GRAVITY (test code = 1.003-1.030 H 1552484270) GLU U QUAL (test code = 500 mg/dL Normal A 3269760906) BLOOD (test code = Negative Negative 8443154253) KETONES (test code = 5 mg/dL Negative A 8057540604) PROTEIN (test code = Negative Negative 2887-8) UROBILIN (test code = Normal Normal 4915429823) BILIRUBIN (test code = Negative Negative 6170096561) NITRITE (test code = Negative Negative 3223266945) LEUK ALYSHA (test code = Negative Negative 7858657315) RBC/HPF (test code = See_Comment [Autom ated message] 9701595107) The system [employer] generated this result transmit patricio reference range : 0 - 3 HPF. The refe rence range was not u sed to interpret th is result as normal/abnormal . WBC/HPF (test code = See_Comment [Autom ated message] 2176223934) The system [employer] generated this result transmit patricio reference range : 0 - 5 HPF. The refe rence range was not u sed to interpret th is result as normal/abnormal . BACTERIA (test code = Negative Negative 6765599225) Lab Interpretation (test Abnormal code = 76273-1) [facility] with [id number] 18:36:00 Test Item Value Reference Range Interpretation [...] (test code = 33.7 fL 38.5-51.6 L 10198-3) RDW-CV (test code = 11.5 % 12.1-15.4 L 788-0) PLT (test code = See_Comment H [Automated 777-3) message] The sy stem which generated this result transmitted reference range : 150 - 328 10*3/ ?L. The reference r teresita was not used to interpret this result as normal/abnormal . MPV (test code = 10.2 fL 9.8-13 50314-2) NRBC/100 WBC (test See_Comment [Automat ed code = 2480074949) message] The system which generated this result transmitted reference range : 0.0 - 10.0 /100 WBCs. The refer ence range was not u sed to interpret th is result as normal/abnormal . NRBC x10^3 (test code <0.01 See_Comment [Auto mated = 8341450890) message] The s ystem which generated this result transmitted reference range : 10*3/?L. The reference range was not used to interpret this result as normal/abnormal . GRAN MAT (NEUT) % 60.3 % (test code = 770-8) IMM GRAN % (test code 0.70 % = 2030495502) LYMPH % (test code = 29.2 % 736-9) MONO % (test code = 4.7 % 5905-5) EOS % (test code = 3.9 % 713-8) BASO % (test code = 1.2 % 706-2) GRAN MAT x10^3(ANC) 6.44 10*3/uL 1.99-6.95 (test code = 8185960017) IMM GRAN x10^3 (test 0.07 10*3/uL 0-0.06 H code = 8512500517) LYMPH x10^3 (test code 3.12 10*3/uL 1.09-3.23 = 731-0) MONO x10^3 (test code 0.50 10*3/uL 0.36-1.02 = 742-7) EOS x10^3 (test code = 0.42 10*3/uL 0.06-0.53 711-2) BASO x10^3 (test code 0.13 10*3/uL 0.01-0.09 H = 704-7) Lab Interpretation Abnormal (test code = 78023-9) [facility]"
[2022-02-08 14:24] LABS: Absolute Lymphocytes (CBC) 1.7 K/uL (0.7-4.9); Hematocrit 52.5 % (39.6-49.0); Lymphocytes % 13.9 % (15.3-44.8); MPV 8.8 fL (7.6-11.3); RBC Red Blood Cell Count 6.18 M/uL (4.33-5.43)
[2022-02-08] MEDS ORDERED: ONDANSETRON 4 MG/2 ML VIAL ONE (14:35)
[2022-02-08] MEDS ORDERED: NA CHLORIDE 0.9% 1,000 ML ONE (14:35)
[2022-02-08 15:16] LABS: ALT/SGPT 69 U/L (12-78); AST/SGOT 36 U/L (15-37); Albumin 4.6 g/dL (3.4-5.0); Alkaline Phosphatase 133 U/L (45-117); BUN Blood Urea Nitrogen 9 mg/dL (7-18); Bicarbonate 23 mmol/L (21-32); Bilirubin Total 1.3 mg/dL (0.2-1.0); Glomerular Filtration Rate 120 ml/min (=/>90); Glucose Level 353 mg/dL (74-106); Lipase 25 U/L (73-393); Potassium 3.6 mmol/L (3.5-5.1); Protein, Total 8.6 g/dL (6.4-8.2); Sodium Level 134 mmol/L (136-145)
[2022-02-08] MEDS ORDERED: INSULIN -REGULAR HUMAN 50 UNIT/0.5 ML ML ONE (15:57)
[2022-02-08] MEDS ORDERED: MORPHINE 2 MG/ML SYR ONE (15:58)
[2022-02-08] MEDS ORDERED: ONDANSETRON 4 MG (ODT) TAB ONE (15:58)
--- NOTE | 2022-02-08 16:57 | EDPHYS ---
Physician Documentation [facility] Name: Jimenez Patrick Age: 26 yrs Sex: Male : 1995 Arrival Date: 02/08/2022 Time: 13:06 Bed 9 Private MD: ED Physician Dontrell Dunlap HPI: 02/08 13:31 This 26 yrs old Male presents to ER via Ambulatory with complaints of Vomiting.en 13:31 Male insulin-dependent diabetic presents to ED with nausea, vomiting, diarrhea onset 2 en hours ago after taking energy supplements. Patient did not take his insulin today has a previous history of DKA. Most recently seen in the ED over the weekend for hyperglycemia glucose in the 300s. Reports compliance over the weekend but increased nausea and vomiting today. He reports abdominal cramping with nonbloody nonbilious emesis and nonbloody diarrhea. No chest pain, shortness of breath, dyspnea exertion. No fevers, chills.. Historical: - Allergies: 13:24 NKA; ww - PMHx: 13:24 Chronic Pancreatitis; Diabetes - IDDM; ww - PSHx: 13:24 Cholecystectomy; stents x 2 in pancreas; I\T\D; ww - Immunization history:: Adult Immunizations Client reports receiving the 2nd dose of the Covid vaccine. - Social history:: Smoking status: Patient denies any tobacco usage or history of. ROS: 13:31 Constitutional: Negative for fever, chills, and weight loss. en 13:31 Cardiovascular: Negative for chest pain, edema, orthopnea. 13:31 Respiratory: Negative for cough, shortness of breath. 13:31 Abdomen/GI: Positive for nausea, vomiting, and diarrhea, abdominal cramps. 13:31 Back: 13:31 : Negative for urinary symptoms. 13:31 Skin: Negative for rash. 13:31 Neuro: Negative for dizziness, headache, tingling, weakness. 13:31 Endocrine: Negative for polydipsia, polyuria. 13:31 All other systems are negative. Exam: 13:31 Constitutional: This is a well developed, well nourished patient who is awake, alert, en and in no acute distress. 13:31 Eyes: Conjunctiva: normal, no exudate, no injection. 13:31 ENT: Mouth: Oral mucosa: pink and intact, moist, Posterior pharynx: Airway: patent. 13:31 Neck: ROM/movement: is normal. 13:31 Cardiovascular: Rate: tachycardic, actual rate is 129 bpm, Rhythm: regular, Pulses: no pulse deficits are appreciated, Heart sounds: normal, no murmur, no rub, no gallop. 13:31 Respiratory: the patient does not display signs of respiratory distress, Respirations: normal, Breath sounds: are clear throughout, no rales, rhonchi, no stridor, no acute changes. 13:31 Abdomen/GI: Inspection: abdomen appears normal, Bowel sounds: normal, in all quadrants, Palpation: abdomen is soft and non-tender, in all quadrants. 13:31 Back: CVA tenderness, is absent. 13:31 Musculoskeletal/extremity: ROM: intact in all extremities, full active range of motion, in all extremities. 13:31 Skin: no rash present. 13:31 Skin: Diaphoretic. 13:31 Neuro: Orientation: appropriate for stated age, no acute changes, to person, place \T\ time. 13:31 Psych: Behavior/mood is pleasant, cooperative, Affect is calm. Vital Signs: 13:23 BP 153 / 119; Pulse 129; Resp 20; Temp 96.9; Pulse Ox 97% on R/A; Weight 90.72 kg; ww Height 5 ft. 9 in. (175.26 cm); Pain 0/10; 15:06 BP 141 / 86; Pulse 107; Resp 16; Pulse Ox 100% on R/A; iw 16:05 BP 138 / 90; Pulse 88; Resp 16; Pulse Ox 100% on R/A; iw 13:23 Body Mass Index 29.53 (90.72 kg, 175.26 cm) ww MDM: 13:31 Differential diagnosis: gastritis, cholecystitis, pancreatitis, appendicitis, en diverticulitis, viral gastroenteritis, gastroenteritis, DKA, side effect of energy supplement. Data reviewed: vital signs, nurses notes, old medical records, lab test result(s), and as a result, I will administer IV fluids, Will check labs, place IV for hydration, give antiemetics.. 14:24 ED course: IV placed. Pending medications. No change in symptoms.. en 14:36 Patient medically screened. en 15:31 ED course: Patient with hyperglycemia, glucose of 353 without evidence of DKA. No en acidosis. Will give second liter of NS and 10 units insulin repeat glucose afterwards. 16:54 ED course: Feels better and is tolerating p.o. Glucose is 214 after insulin and IV en fluids. Will DC home with Zofran and ER return precautions.. 02/08 13:31 Order name: CBC with Diff; Complete Time: 14:52 en 02/08 13:31 Order name: CMP; Complete Time: 15:24 en 02/08 13:31 Order name: Lipase; Complete Time: 15:24 en 02/08 13:31 Order name: Ketone, Serum; Complete Time: 15:24 en 02/08 13:31 Order name: IV Saline Lock; Complete Time: 14:55 en 02/08 13:31 Order name: Labs collected and sent; Complete Time: 14:55 en 02/08 14:28 Order name: Labs - recollect needed: recollect green top; Complete Time: 14:55 bd Administered Medications: 14:30 Drug: NS 0.9% 1000 ml Route: IV; Rate: 1 bolus; Site: right antecubital; iw 15:30 Follow up: IV Status: Completed infusion iw 14:30 Drug: Zofran (Ondansetron) 4 mg Route: IVP; Site: right antecubital; iw 14:50 Follow up: Response: No adverse reaction iw 16:00 Drug: NS 0.45 % 1000 ml Route: IV; Rate: bolus; Site: right antecubital; iw 16:30 Follow up: IV Status: IV converted to saline lock iw 16:00 Drug: Ondansetron 4 mg Route: PO; iw 16:30 Follow up: Response: No adverse reaction iw 16:00 Drug: morphine 2 mg Route: IVP; Infused Over: 4 mins; Site: right antecubital; iw 16:30 Follow up: Response: No adverse reaction; Pain is decreased iw Disposition: 17:41 Co-signature as Attending Physician, Dontrell Dunlap MD. rn Disposition Summary: 02/08/22 16:56 Discharge Ordered Location: Home en Problem: an acute exacerbation en Symptoms: have improved en Condition: Stable en Diagnosis - Vomiting en - Diarrhea, unspecified en - Diabetes mellitus due to underlying condition with hyperglycemia en Followup: en - With: Omar Gallegos MD - When: 1 - 2 days - Reason: Discharge Instructions: - Discharge Summary Sheet en - Diarrhea, Adult en - Hyperglycemia, Inro-px-Onui en - Vomiting, Adult en Forms: - Medication Reconciliation Form en - Thank You Letter en - Antibiotic Education en - Prescription Opioid Use en Prescriptions: - Zofran 4 mg Oral Tablet - take 1 tablet by ORAL route every 12 hours As needed; 20 tablet; Refills: 0, en Product Selection Permitted Signatures: Dispatcher [employer] Sonja Earl Irene RN Dontrell Samuel MD MD rn Wood, Whitney, RN RN ww Newkirk, Elizabeth, PA PA en
--- NOTE | 2022-02-08 16:57 | ER ---
Nurse's Notes [facility] Name: Jimenez Patrick Age: 26 yrs Sex: Male : 1995 Arrival Date: 02/08/2022 Time: 13:06 Bed 9 Private MD: Diagnosis: Vomiting;Diarrhea, unspecified;Diabetes mellitus due to underlying condition with hyperglycemia Presentation: 02/08 13:23 Chief complaint: Patient states: Took 2 "Yellow Hornets" energy pills about 2 hours ago ww and has been vomiting ever since then. Coronavirus screen: Client denies travel out of the [place] in the last 14 days. Ebola Screen: Patient denies travel to an Ebola-affected area in the 21 days before illness onset. Initial Sepsis Screen: Does the patient meet any 2 criteria? No. Patient's initial sepsis screen is negative. Does the patient have a suspected source of infection? No. Patient's initial sepsis screen is negative. Risk Assessment: Do you want to hurt yourself or someone else? Patient reports no desire to harm self or others. Onset of symptoms was February 08, 2022. 13:23 Method Of Arrival: Ambulatory ww 13:23 Acuity: MOSES 3 ww Triage Assessment: 13:24 General: Appears uncomfortable, Behavior is cooperative. Pain: Denies pain. Neuro: ww Boyer Agitation-Sedation Scale (RASS): 0 - Alert and Calm Level of Consciousness is awake, alert, obeys commands, Oriented to person, place, time, situation, Speech is normal. Cardiovascular: Capillary refill < 3 seconds Patient's skin is warm and dry. Respiratory: Airway is patent Respiratory effort is even, unlabored, Respiratory pattern is regular, symmetrical. GI: Reports vomiting. Historical: - Allergies: 13:24 NKA; ww - PMHx: 13:24 Chronic Pancreatitis; Diabetes - IDDM; ww - PSHx: 13:24 Cholecystectomy; stents x 2 in pancreas; I\\T\\D; ww - Immunization history:: Adult Immunizations Client reports receiving the 2nd dose of the Covid vaccine. - Social history:: Smoking status: Patient denies any tobacco usage or history of. Screenin:37 Abuse screen: Denies threats or abuse. Denies injuries from another. Nutritional iw screening: No deficits noted. Tuberculosis screening: No symptoms or risk factors identified. Fall Risk None identified. Assessment: 14:00 General: Appears uncomfortable, Behavior is cooperative. Pain: Complains of pain in iw abdomen. Neuro: Level of Consciousness is awake, alert, obeys commands, Oriented to person, place, time, situation, Moves all extremities. Full function. Respiratory: Respiratory effort is even, labored, Respiratory pattern is regular, symmetrical. GI: Abdomen is non-distended, Reports upper abdominal pain, nausea, vomiting. Derm: Skin is intact, is healthy with good turgor. Musculoskeletal: Range of motion: intact in all extremities. 16:05 Reassessment: Patient appears in no apparent distress at this time. Patient and/or iw family updated on plan of care and expected duration. Pain level reassessed. Patient is alert, oriented x 3, equal unlabored respirations, skin warm/dry/pink. Patient states symptoms have improved. 17:06 Reassessment: Patient appears in no apparent distress at this time. Patient and/or iw family updated on plan of care and expected duration. Pain level reassessed. Patient is alert, oriented x 3, equal unlabored respirations, skin warm/dry/pink. BS down to 214, no more episodes of vomiting , nausea has improved Patient states feeling better. Patient states symptoms have improved. Vital Signs: 13:23 BP 153 / 119; Pulse 129; Resp 20; Temp 96.9; Pulse Ox 97% on R/A; Weight 90.72 kg; ww Height 5 ft. 9 in. (175.26 cm); Pain 0/10; 15:06 BP 141 / 86; Pulse 107; Resp 16; Pulse Ox 100% on R/A; iw 16:05 BP 138 / 90; Pulse 88; Resp 16; Pulse Ox 100% on R/A; iw 13:23 Body Mass Index 29.53 (90.72 kg, 175.26 cm) ww ED Course: 13:06 Patient arrived in ED. as 13:12 Kimmy Lerner PA is PHCP. en 13:12 Dontrell Dunlap MD is Attending Physician. en 13:24 Triage completed. ww 13:24 Arm band placed on. ww 13:27 Renee Holly, ERIC is Primary Nurse. iw 14:14 Initial lab(s) drawn, by me, sent to lab. Inserted saline lock: 20 gauge in right iw antecubital area, using aseptic technique. Blood collected. 16:55 Omar Gallegos MD is Referral Physician. en 17:06 No provider procedures requiring assistance completed. IV discontinued, intact, iw bleeding controlled, No redness/swelling at site. Pressure dressing applied. 17:07 Patient has correct armband on for positive identification. iw Administered Medications: 14:30 Drug: NS 0.9% 1000 ml Route: IV; Rate: 1 bolus; Site: right antecubital; iw 15:30 Follow up: IV Status: Completed infusion iw 14:30 Drug: Zofran (Ondansetron) 4 mg Route: IVP; Site: right antecubital; iw 14:50 Follow up: Response: No adverse reaction iw 16:00 Drug: NS 0.45 % 1000 ml Route: IV; Rate: bolus; Site: right antecubital; iw 16:30 Follow up: IV Status: IV converted to saline lock iw 16:00 Drug: Ondansetron 4 mg Route: PO; iw 16:30 Follow up: Response: No adverse reaction iw 16:00 Drug: morphine 2 mg Route: IVP; Infused Over: 4 mins; Site: right antecubital; iw 16:30 Follow up: Response: No adverse reaction; Pain is decreased iw Outcome: 16:56 Discharge ordered by . en 17:07 Discharged to home ambulatory, with friend. iw 17:07 Condition: good 17:07 Discharge instructions given to patient, Instructed on discharge instructions, follow up and referral plans. medication usage, Demonstrated understanding of instructions, follow-up care, medications, Prescriptions given X 1. 17:07 Patient left the ED. iw Signatures: Aminta Woodward Irene, RN RN iw Elda Jaimes RN RN ww [place], Elizabeth, PA PA en
[2022-02-08 17:12] VITALS: TEMP 96.9
[2022-02-08 17:14] VITALS: O2SAT 100
[2022-02-08 17:15] VITALS: BP 138/90
== END 2022-02-08 17:07 | disposition home or self-care (01) ==
LOC: ER 13:03
DX: E11.65 Type 2 diabetes mellitus with hyperglycemia (principal); R19.7 Diarrhea, unspecified; K86.1 Other chronic pancreatitis
CPT/HCPCS: 36415; 80053; 82010; 82947; 83690; 85025; 96361; 96374; 96375; 99284; J1815; J2270; J2405; J7030

== ENCOUNTER 2022-06-25 12:21 | Emergency (ER) | payer SELFPAY ==
--- OUTSIDE RECORDS SUMMARY | 2022-06-25 12:24 | XMS REPORT | Continuity of Care Document ---
:1995 Author Organization [facility] t Address [address] [place] [address] Care Team Providers Name Role Phone Syeda Alberts Attending Clinician SYEDA PERSAUD Attending Clinician Unavailable Doctor Unassigned, [place] Attending Clinician Unavailable Payers Payer Name Policy Type Policy Number Effective Date Expiration Date S ource Problems Condition Condition Condition Status Onset Resolution Last Treating Co mments Source Name Details Category Date Date Treatment Clinician Date Obesity Obesity Disease Active Univers (BMI (BMI 8-12 ity of 30-39.9) 30-39.9) 00:00: [place] 00 [facility] 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 U use adenitis adenitis 2-31 ity of 00:00: [address] Branch Pancreatit Pancreatit Disease Active 2009-09 U clinters is is 2-31 ity of 00:00: 00 [facility] Abdominal Abdominal Disease Active 2009-09 Uni vers pain pain 2-30 ity of 00:00: 00 Medical [place] Other acne Other acne Disease Active U nivers 8-09 ity of 00:00: [place] 00 [facility] Viral Viral Disease Active Overview: [facility] s warts warts 8 Right ity of 00:00: [id number] Diagnosis Medical Term Branch Balancer Utility Allergies, Adverse Reactions, Alerts Allergy Allergy Status Severity Reaction(s) Onset Inactive Treating Comm ents Source Name Type Date Date Clinician NO KNOWN Drug Active Univers ALLERGIE Class ity of S [facility] Social History Social Habit Start Date Stop Date Quantity Comments Source Sex Assigned At Uni versity [facility] Exposure to SARS-CoV-2 Not sure Un [facility] [place] (event) [facility] Smoking Status Start Date Stop Date Source Unknown if ever smoked Universit y of [facility] Medications Ordered Filled Start Stop Current Ordering Indication Dosage Frequency Signature Comments Components Source Medication Medication Date Date Medication? Clinician (SIG) Name Name maalox:diph 2020- No 15mL 15 mL, Uni vers enhydrAMINE 11-08 Oral, ity of :lidocaine 20:45: 20:39 ONCE, 1 Stu as 2 % viscous 00 :00 dose, Sat Med ical 1:1:1 11/08/20 at [place] (FIRST-MOUT 1445, MARITA HWASH BLM) oral suspension 15 mL insulin 2020- No 9U 9 Units, [facility] rs regular 11-08- Slow IV ity of human 20:30: 19:39 Push, [place] (HUMULIN R) 00 :00 ONCE, 1 Medic al injection 9 dose, Sat Bra nch Units 11/08/20 at 1430, STAT ondansetron 2020- No 4mg 4 mg, Slow Univers (ZOFRAN 11-08 IV Push, ity of (PF)) 19:45: 18:49 ONCE, 1 [place] injection 4 00 :00 dose, Sat Med ical mg 11/08/20 at [place] 1345, MARITA morpHINE 2020- No 4mg 4 mg, Slow Un brendan injection 4 11-08 IV Push, ity of mg 19:45: 18:49 ONCE, 1 [place] 00 :00 dose, Sat Medical 11/08/20 at [place] 1345, STAT NaCl 0.9% 2020- No 1000mL at 999 Uni vers (NS) bolus 11-08-06 mL/hr, ity of infusion 19:30: 20:37 1,000 mL, Stu as 1,000 mL 00 :00 IV Medical Infusion, [place] ONCE, 1 dose, 11/08/20 at 1330, MARITA NaCl 0.9% 2020- No 1000mL at 999 Uni vers (NS) bolus 3 03-06 mL/hr, ity of infusion 18:30: 19:39 1,000 mL, Stu as 1,000 mL 00 :00 IV Medical Infusion, [place] ONCE, 1 dose, 11/08/20 at 1230, MARITA ondansetron Yes [id number] 4mg Take 1 Univers (ZOFRAN 3-06 tablet by ity of ODT) 4 mg 00:00: mouth [place] disintegrat 00 every 8 Medic al ing tablet (eight) Branch hours as needed for Nausea and Vomiting (N/V). dicyclomine Yes [id number] 20mg Take 1 Univers 20 mg 3-06 tablet by ity of tablet 00:00: mouth 4 [place] 00 (four) Medical times Branch daily as needed for Abdominal pain. No known No [facility] medications [facility] Vital Signs Vital Name Observation Time Observation Value Comments Source Systolic blood 2020-11-08 21:00:00 136 mm[Hg] [facility] Diastolic blood 2020-11-08 21:00:00 95 mm[Hg] [facility] Heart rate 2020-11-08 21:00:00 93 /min [facility] Respiratory rate 2020-11-08 21:00:00 16 /min [facility] Oxygen saturation in 2020-11-08 21:00:00 98 /min [facility] Arterial blood by [facility] Pulse oximetry [place] Body temperature 2020-11-08 18:12:00 36.44 [facility] Body height 2020-11-08 18:12:00 175.3 cm [facility] Body weight 2020-11-08 18:12:00 92.987 kg [facility] BMI 2020-11-08 18:12:00 30.27 kg/m2 [facility] Procedures Procedure Date / Time Performed Performing Clinician Sourc e POCT GLUCOSE 2020-11-08 20:26:00 Persaud, Syeda [facility] (AUTOMATED) [facility] LIPASE 2020-11-08 18:29:00 [facility] HEPATIC FUNCTION PANEL 2020-11-08 18:29:00 PersaudSyeda parsons [facility] ([id number]) [facility] (ALB,T.PRO,BILI T,BU/BC,ALT,AST,ALK PHOS) BASIC METABOLIC PANEL 2020-11-08 18:29:00 PersaudSyeda parsons [facility] (NA, K, CL, CO2, Medical Branch GLUCOSE, BUN, CREATININE, CA) CBC WITH DIFF 2020-11-08 18:29:00 Syeda Persaud [facility] URINALYSIS 2020-11-08 18:29:00 Syeda Persaud [facility] NOTICE OF PRIVACY 2020-11-08 18:06:16 Doctor Unassigned, No Univ [facility] PRACTICES Name [facility] CONSENT/REFUSAL FOR 2020-11-08 18:06:04 Doctor Unassigned, No Un [facility] DIAGNOSIS AND Name [facility] TREATMENT Encounters Start End Encounter Admission Attending Care Care Encounter Source Date/Time Date/Time Type Type Clinicians Facility Department ID 2021-09-30 Outpatient [facility] [id number] Common 12:34:38 [id number] [facility] 2020-11-08 2020-11-08 [facility] [id number] Univers 12:16:00 15:38:00 Syeda Laurent [id number] i ty [facility] [id number] [facility] [id number] [facility] 084 Branch 2020-11-08 2020-11-08 Emergency X [facility] ERT [id number] Univers 12:06:00 12:06:00 SYEDA laurent [facility] 2020-11-08 2020-11-08 Orders Doctor GONZALEZ [id number] Univers 00:00:00 00:00:00 Only Unassigned, JOSE [id number] ity of [place] [facility] [id number] [facility] [id number] [facility] 009 Branch Results Test Description Test Time Test Comments Results Result Comments Source POCT GLUCOSE (AUTOMATED) 2020-11-08 20:30:00 Test Item Value Reference Range Interpretation Comme nts POCT GLU (test code = 7498926832) 181 mg/dL 70-110 H Lab Interpretation (test code = 79537-5) [facility]normal [facility] (NA, K, CL, CO2, GLUCOSE, BUN, CREATININE, CA)2020-11-08 18:48:00 Test Item Value Reference Range Interpretation Comments NA (test code = 134 mmol/L 135-145 L 8933009771) K (test code = 4.0 mmol/L 3.5-5 2029565464) CL (test code = 96 mmol/L 98-108 L 6608614520) CO2 TOTAL (test code = 29 mmol/L 23-31 0006791757) AGAP (test code = 2-16 5495877272) BUN (test code = 10 mg/dL 7-23 4999206180) GLUCOSE (test code = 368 mg/dL 70-110 H 0168689889) CREATININE (test code = 0.58 mg/dL 0.6-1.25 L 3077491484) CALCIUM (test code = 9.1 mg/dL 8.6-10.6 9075799564) eGFR Calculation mL/min/1.73m2 (Non-) (test code = 3655177976) eGFR Calculation mL/min/1.73m2 () (test code = 7442767272) RAFAEL (test code = RAFAEL) Association of [...] tests). Lab Interpretation Abnormal (test code = 62037-4) [facility] (ALB, T.PRO, BILI T, BU/BC, ALT, AST, ALK PHOS)2020-11-08 18:48:00 Test Item Value Reference Range Interpretation Comments TOTAL BILI (test code = 6897228523) 0.8 mg/dL 0.1-1.1 BILI UNCON (test code = 3427129292) 0.8 mg/dL 0.1-1.1 BILI CONJ (test code = 7938110975) 0.0 mg/dL 0-0.3 T PROTEIN (test code = 1911950217) 7.8 g/dL 6.3-8.2 ALBUMIN (test code = 0531962152) 4.7 g/dL 3.5-5 ALK PHOS (test code = 1871762337) 147 U/L 34-122 H ALTv (test code = 1742-6) 48 U/L 5-50 AST(SGOT) (test code = 3747023697) 42 U/L 13-40 H Lab Interpretation (test code = Abnormal 59217-6) [facility] [id number] 18:48:00 Test Item Value Reference Range Interpretation Comments LIPASE (test code = 2061506506) 27 U/L 0-220 Lab Interpretation (test code = Normal 60962-1) [facility]21-[facility] 18:39:00 Test Item Value Reference Range Interpretation Comments APPEARANCE (test code = Clear Clear 6850833524) COLOR (test code = Yellow Yellow 8465695609) PH (test code = 4.8-8.0 3398626125) SP GRAVITY (test code = 1.003-1.030 H 3328221467) GLU U QUAL (test code = 500 mg/dL Normal A 6528897059) BLOOD (test code = Negative Negative 5815561969) KETONES (test code = 5 mg/dL Negative A 8054493395) PROTEIN (test code = Negative Negative 2887-8) UROBILIN (test code = Normal Normal 8342317657) BILIRUBIN (test code = Negative Negative 6155380197) NITRITE (test code = Negative Negative 1663133483) LEUK ALYSHA (test code = Negative Negative 6801822276) RBC/HPF (test code = See_Comment [Autom ated message] 3835304399) The system [place] generated this result transmit patricio reference range : 0 - 3 HPF. The refe rence range was not u sed to interpret th is result as normal/abnormal . WBC/HPF (test code = See_Comment [Autom ated message] 9856922370) The system [employer] generated this result transmit patricio reference range : 0 - 5 HPF. The refe rence range was not u sed to interpret th is result as normal/abnormal . BACTERIA (test code = Negative Negative 8873664272) Lab Interpretation (test Abnormal code = 87427-1) [facility] with Qdikzopkrkfl1980-04-11 18:36:00 Test Item Value Reference Range Interpretation [...] (test code = 33.7 fL 38.5-51.6 L 08321-8) RDW-CV (test code = 11.5 % 12.1-15.4 L 788-0) PLT (test code = See_Comment H [Automated 777-3) message] The sy stem which generated this result transmitted reference range : 150 - 328 10*3/ ?L. The reference r teresita was not used to interpret this result as normal/abnormal . MPV (test code = 10.2 fL 9.8-13 73978-5) NRBC/100 WBC (test See_Comment [Automat ed code = 3373304242) message] The system which generated this result transmitted reference range : 0.0 - 10.0 /100 WBCs. The refer ence range was not u sed to interpret th is result as normal/abnormal . NRBC x10^3 (test code <0.01 See_Comment [Auto mated = 6276921660) message] The s ystem which generated this result transmitted reference range : 10*3/?L. The reference range was not used to interpret this result as normal/abnormal . GRAN MAT (NEUT) % 60.3 % (test code = 770-8) IMM GRAN % (test code 0.70 % = 6002805389) LYMPH % (test code = 29.2 % 736-9) MONO % (test code = 4.7 % 5905-5) EOS % (test code = 3.9 % 713-8) BASO % (test code = 1.2 % 706-2) GRAN MAT x10^3(ANC) 6.44 10*3/uL 1.99-6.95 (test code = 6245188361) IMM GRAN x10^3 (test 0.07 10*3/uL 0-0.06 H code = 6142444869) LYMPH x10^3 (test code 3.12 10*3/uL 1.09-3.23 = 731-0) MONO x10^3 (test code 0.50 10*3/uL 0.36-1.02 = 742-7) EOS x10^3 (test code = 0.42 10*3/uL 0.06-0.53 711-2) BASO x10^3 (test code 0.13 10*3/uL 0.01-0.09 H = 704-7) Lab Interpretation Abnormal (test code = 32775-4) [facility]"
[2022-06-25 12:54] LABS: Absolute Lymphocytes (CBC) 2.2 K/uL (0.7-4.9); Hematocrit 44.2 % (39.6-49.0); MCV 84.6 fL (80-100); MPV 8.4 fL (7.6-11.3); RBC Red Blood Cell Count 5.22 M/uL (4.33-5.43)
[2022-06-25] MEDS ORDERED: FAMOTIDINE 20 MG/2 ML VIAL IV ONE (13:02)
[2022-06-25] MEDS ORDERED: ONDANSETRON 4 MG/2 ML VIAL ONE (13:02)
[2022-06-25] MEDS ORDERED: MORPHINE 4 MG/ML SYR ONE (13:02)
[2022-06-25] MEDS ORDERED: NA CHLORIDE 0.9% 2,000 ML ONE (13:02)
[2022-06-25 13:12] LABS: Albumin 3.6 g/dL (3.4-5.0); Bilirubin Total 0.7 mg/dL (0.2-1.0); Potassium 3.6 mmol/L (3.5-5.1); Protein, Total 7.1 g/dL (6.4-8.2)
[2022-06-25 13:43] LABS: Urine Blood Negative (Negative); Urine Glucose 3+ (Negative); Urine Protein Negative (Negative); Urine pH 6.5 (5.0-7.0)
--- NOTE | 2022-06-25 13:45 | RAD REPORT ---
EXAM DESCRIPTION: CT - Abdomen Pelvis W Contrast - 06/25/2022 1:31 pm CLINICAL HISTORY: Abdominal pain, acute, nonlocalized, history of pancreatitis COMPARISON: <Comparisons>CT study 02/06/2022 TECHNIQUE: Biphasic, helical CT imaging of the abdomen and pelvis was performed following 100 ml non -ionic IV contrast. No oral contrast administered. All CT scans are performed using dose optimization technique as appropriate and may include automated exposure control or mA/KV adjustment according to patient size. FINDINGS: No suspicious findings in the lung bases. Liver and spleen show no suspicious findings. Cholecystectomy clips are present. No abnormal biliary tree dilatation. Numerous calcifications are present throughout the volume reduced pancreas. No peripancreatic fluid or stranding. No change to the pancreas identifiable since the February comparison study. Symmetric renal function is seen with no hydronephrosis or suspicious renal mass. No pyelonephritis o r acute parenchymal process. No bladder abnormalities. No adrenal abnormalities. No dilated bowel loops or bowel wall thickening. Appendix is normal. No free air, free fluid or infla mmatory stranding. No hernia, mass or bulky lymphadenopathy. No suspicious bony findings. IMPRESSION: Chronic pancreatitis findings. No acute pancreatitis. No acute abdominal or pelvic process identifiable. No significant change from February 2022 study.
[2022-06-25 13:54] LABS: Urine RBC <5 /HPF (None Seen)
[2022-06-25 14:04] LABS: Barbiturates NEGATIVE (NEGATIVE); Benzodiazepines NEGATIVE (NEGATIVE); Cocaine NEGATIVE (NEGATIVE); METHAMPHETAM NEGATIVE (NEGATIVE); Methadone NEGATIVE (NEGATIVE); Opiates POSITIVE (NEGATIVE); Phencyclidine NEGATIVE (NEGATIVE); THC Cannibis NEGATIVE (NEGATIVE)
--- NOTE | 2022-06-25 15:56 | EDPHYS ---
Physician Documentation [facility] Name: Jimenez Patrick Age: 26 yrs Sex: Male : 1995 Arrival Date: 06/25/2022 Time: 12:25 Bed 18 Private MD: ED Physician Luis Laura HPI: 06/25 15:50 This 26 yrs old Male presents to ER via Ambulatory with complaints of salbador Abdominal Pain. 15:50 The patient presents with abdominal pain in the epigastric area, in the upper abdomen. salbador Onset: The symptoms/episode began/occurred 1 day(s) ago. The symptoms do not radiate. Associated signs and symptoms: Pertinent positives: nausea and vomiting. The symptoms are described as crampy. Modifying factors: The symptoms are alleviated by nothing, the symptoms are aggravated by food, movement, nothing. pressure. Severity of pain: At its worst the pain was mild in the emergency department the pain is unchanged. The patient has experienced similar episodes in the past, multiple times. Historical: - Allergies: 12:32 NKA; kb3 - Home Meds: 12:32 Humulin 70/30 U-100 Insulin 100 unit/mL (70-30) Sub-Q crtg [Active]; kb3 - PMHx: 12:32 Chronic Pancreatitis; Diabetes - IDDM; kb3 - PSHx: 12:32 Cholecystectomy; I\T\D; stents x 2 in pancreas; kb3 - Immunization history:: Adult Immunizations up to date, Client reports receiving the 1st dose of the Covid vaccine, Last tetanus immunization: unknown. - Social history:: Smoking status: Patient/guardian denies using tobacco, Stopped _ months ago 1. - Family history:: not pertinent. ROS: 15:50 Constitutional: Negative for fever, chills, and weight loss, Eyes: Negative for injury, salbador pain, redness, and discharge, ENT: Negative for injury, pain, and discharge, Neck: Negative for injury, pain, and swelling, Cardiovascular: Negative for chest pain, palpitations, and edema, Respiratory: Negative for shortness of breath, cough, wheezing, and pleuritic chest pain, Back: Negative for injury and pain, : Negative for injury, bleeding, discharge, and swelling, MS/Extremity: Negative for injury and deformity, Skin: Negative for injury, rash, and discoloration, Neuro: Negative for headache, weakness, numbness, tingling, and seizure, Psych: Negative for depression, anxiety, suicide ideation, homicidal ideation, and hallucinations, Allergy/Immunology: Negative for hives, rash, and allergies, Endocrine: Negative for neck swelling, polydipsia, polyuria, polyphagia, and marked weight changes, Hematologic/Lymphatic: Negative for swollen nodes, abnormal bleeding, and unusual bruising. 15:50 Abdomen/GI: Positive for abdominal pain, nausea and vomiting. Exam: 15:50 Constitutional: This is a well developed, well nourished patient who is awake, alert, salbador and in no acute distress. Head/Face: Normocephalic, atraumatic. Eyes: Pupils equal round and reactive to light, extra-ocular motions intact. Lids and lashes normal. Conjunctiva and sclera are non-icteric and not injected. Cornea within normal limits. Periorbital areas with no swelling, redness, or edema. ENT: Nares patent. No nasal discharge, no septal abnormalities noted. Tympanic membranes are normal and external auditory canals are clear. Oropharynx with no redness, swelling, or masses, exudates, or evidence of obstruction, uvula midline. Mucous membranes moist. Neck: Trachea midline, no thyromegaly or masses palpated, and no cervical lymphadenopathy. Supple, full range of motion without nuchal rigidity, or vertebral point tenderness. No Meningismus. Chest/axilla: Normal chest wall appearance and motion. Nontender with no deformity. No lesions are appreciated. Cardiovascular: Regular rate and rhythm with a normal S1 and S2. No gallops, murmurs, or rubs. Normal PMI, no JVD. No pulse deficits. Respiratory: Lungs have equal breath sounds bilaterally, clear to auscultation and percussion. No rales, rhonchi or wheezes noted. No increased work of breathing, no retractions or nasal flaring. Back: No spinal tenderness. No costovertebral tenderness. Full range of motion. Male : Normal genitalia with no discharge or lesions. Skin: Warm, dry with normal turgor. Normal color with no rashes, no lesions, and no evidence of cellulitis. MS/ Extremity: Pulses equal, no cyanosis. Neurovascular intact. Full, normal range of motion. Neuro: Awake and alert, GCS 15, oriented to person, place, time, and situation. Cranial nerves II-XII grossly intact. Motor strength 5/5 in all extremities. Sensory grossly intact. Cerebellar exam normal. Normal gait. Psych: Awake, alert, with orientation to person, place and time. Behavior, mood, and affect are within normal limits. 15:50 Abdomen/GI: Inspection: abdomen appears normal, Bowel sounds: normal, Palpation: mild abdominal tenderness, moderate abdominal tenderness, in the epigastric area, right upper quadrant and left upper quadrant, Liver: no appreciated palpable abnormalities, Hernia: not appreciated. Vital Signs: 12:31 BP 127 / 86; Pulse 88; Resp 20; Temp 98.2; Pulse Ox 100% ; Weight 90.72 kg; Height 5 kb3 ft. 9 in. (175.26 cm); Pain 6/10; 13:15 BP 115 / 78; Pulse 74; Resp 16; Pulse Ox 100% ; Pain 8/10; mb8 13:59 BP 116 / 69; Pulse 58; Resp 14; Pulse Ox 98% on R/A; Pain 3/10; mb8 14:37 BP 119 / 77; Pulse 65; Resp 18; Temp 98.7; Pulse Ox 100% on R/A; Pain 1/10; mb8 15:44 BP 168 / 86; Pulse 70; Resp 18; Pulse Ox 99% ; Pain 2/10; mb8 12:31 Body Mass Index 29.53 (90.72 kg, 175.26 cm) kb3 MDM: 12:30 Patient medically screened. salbador 15:52 Differential diagnosis: bowel obstruction, Cholelithiasis, diverticulitis, gastritis, salbador gastroesophageal reflux disease, Hepatitis, sympomatic leaking abdominal aortic aneurysm, non-specific abd pain, pancreatitis, Peptic Ulcer Disease, Pyelonephritis, urinary tract infection. Data reviewed: vital signs, nurses notes, lab test result(s), radiologic studies, CT scan. Data interpreted: potline monitor: rate is 70 beats/min, rhythm is regular, Pulse oximetry: on room air is 99 %. Test interpretation: by ED physician or midlevel provider:. Counseling: I had a detailed discussion with the patient and/or guardian regarding: the historical points, exam findings, and any diagnostic results supporting the discharge/admit diagnosis, lab results, radiology results, the need for outpatient follow up, for definitive care, a family practitioner, a inspector materials and processes. 06/25 12:44 Order name: CBC with Diff [facility] 06/25 12:44 Order name: CMP [facility] 06/25 12:44 Order name: Lipase [facility] 06/25 12:44 Order name: UDS; Complete Time: 15:47 [facility] 06/25 12:56 Order name: CBC with Automated Diff; Complete Time: 13:51 EDMS 06/25 12:44 Order name: CT Abd/Pelvis - IV Contrast Only [facility] 06/25 13:12 Order name: Comprehensive Metabolic Panel; Complete Time: 13:51 EDMS 06/25 13:12 Order name: Lipase; Complete Time: 13:51 EDGA 06/25 13:43 Order name: Urine Dipstick-Ancillary; Complete Time: 13:51 EDGA 06/25 13:46 Order name: CT; Complete Time: 13:51 EDGA 06/25 12:44 Order name: IV Saline Lock; Complete Time: 13:14 [facility] 06/25 12:44 Order name: Labs collected and sent; Complete Time: 13:14 [facility] 06/25 12:44 Order name: Urine Dipstick-Ancillary (obtain specimen); Complete Time: 13:45 [facility] Administered Medications: 13:05 Drug: NS 0.9% 1000 ml Route: IV; Rate: 1 bolus; Site: right forearm; mb8 13:30 Follow up: IV Status: Completed infusion mb8 13:05 Drug: Pepcid (famotidine) 20 mg Route: IVP; Site: right forearm; mb8 13:57 Follow up: Response: No adverse reaction; Pain is decreased mb8 13:05 Drug: NS 0.9% 1000 ml Route: IV; Rate: 1 bolus; Site: right forearm; mb8 13:30 Follow up: IV Status: Completed infusion mb8 13:07 Drug: Zofran (Ondansetron) 4 mg Route: IVP; Site: right forearm; mb8 13:58 Follow up: Response: No adverse reaction; Nausea is decreased mb8 13:09 Drug: morphine 4 mg Route: IVP; Infused Over: 4 mins; Site: right forearm; mb8 13:58 Follow up: Response: No adverse reaction; Pain is decreased; RASS: Alert and Calm (0) mb8 16:04 Not Given (BG 167 MD barton): Insulin Regular Human 7 units IVP once mb8 16:04 Not Given (BG 1677): Semglee 100 unit/mL 25 units Sub-Q once mb8 Disposition Summary: 06/25/22 15:55 Discharge Ordered Location: Home salbador Problem: new salbador Symptoms: have improved salbador Condition: Stable salbador Diagnosis - Epigastric abdominal tenderness salbador - Type 1 diabetes mellitus with hyperglycemia salbador - Other chronic pancreatitis salbador Followup: salbador - With: Private Physician - When: 2 - 3 days - Reason: Recheck today's complaints, Re-evaluation by your physician Followup: salbador - With: Char Levi MD - When: 2 - 3 days - Reason: Recheck today's complaints, Re-evaluation by your physician Discharge Instructions: - Discharge Summary Sheet salbador - Abdominal Pain, Adult salbador - Hyperglycemia salbador - Abdominal Pain, Adult, [id number] salbador - Hyperglycemia, [id number] salbador - Chronic Pancreatitis salbador Forms: - Medication Reconciliation Form salbador - Thank You Letter salbador - Antibiotic Education salbador - Prescription Opioid Use salbador - Work release form mb8 Prescriptions: - Pepcid 20 mg Oral Tablet - take 1 tablet by ORAL route every 12 hours for 10 days; 20 tablet; Refills: 0, [facility] Product Selection Permitted - Zofran 4 mg Oral Tablet - take 1 tablet by ORAL route every 12 hours As needed; 20 tablet; Refills: 0, [facility] Product Selection Permitted - dicyclomine 20 mg Oral Tablet - take 1 tablet by ORAL route 4 times per day; 28 tablet; Refills: 0, Product [facility] Selection Permitted Signatures: Dispatcher [employer] Luis Reynoso MD MD cha Bradberry, Kelly RN RN kb3 Jono Montilla RN RN mb8 Corrections: (The following items were deleted from the chart) 14:53 12:45 UA MICROSCOPIC+U.LAB.BRZ ordered. EDMS EDMS
--- NOTE | 2022-06-25 15:56 | ER ---
Nurse's Notes [facility] Name: Jimenez Patrick Age: 26 yrs Sex: Male : 1995 Arrival Date: 06/25/2022 Time: 12:25 Bed 18 Private MD: Diagnosis: Epigastric abdominal tenderness;Type 1 diabetes mellitus with hyperglycemia;Other chronic pancreatitis Presentation: 06/25 12:31 Chief complaint: Patient states: Pt reports hx chronic pancreatitis, thinks he is kb3 having an acute flare up. Reports epigastric pain with N/V/D since last night. Coronavirus screen: Vaccine status: Patient reports receiving the 1st dose of the Covid vaccine. Client denies travel out of the [place] in the last 14 days. Ebola Screen: Patient negative for fever greater than or equal to 101.5 degrees Fahrenheit, and additional compatible Ebola Virus Disease symptoms Patient denies exposure to infectious person. Patient denies travel to an Ebola-affected area in the 21 days before illness onset. No symptoms or risks identified at this time. Initial Sepsis Screen: Does the patient meet any 2 criteria? No. Patient's initial sepsis screen is negative. Does the patient have a suspected source of infection? No. Patient's initial sepsis screen is negative. Risk Assessment: Do you want to hurt yourself or someone else? Patient reports no desire to harm self or others. Onset of symptoms was June 24, 2022 at 18:00. 12:31 Method Of Arrival: Ambulatory 3 12:31 Acuity: MOSES 3 kb3 Triage Assessment: 12:32 General: Appears in no apparent distress. Behavior is calm, cooperative. Pain: kb3 Complains of pain in epigastric area Pain does not radiate. Pain currently is 6 out of 10 on a pain scale. Quality of pain is described as burning, sharp. GI: Reports epigastric pain. Historical: - Allergies: 12:32 NKA; kb3 - Home Meds: 12:32 Humulin 70/30 U-100 Insulin 100 unit/mL (70-30) Sub-Q crtg [Active]; kb3 - PMHx: 12:32 Chronic Pancreatitis; Diabetes - IDDM; kb3 - PSHx: 12:32 Cholecystectomy; I\T\D; stents x 2 in pancreas; kb3 - Immunization history:: Adult Immunizations up to date, Client reports receiving the 1st dose of the Covid vaccine, Last tetanus immunization: unknown. - Social history:: Smoking status: Patient/guardian denies using tobacco, Stopped _ months ago 1. - Family history:: not pertinent. Screenin:45 Abuse screen: Denies threats or abuse. Denies injuries from another. Nutritional mb8 screening: No deficits noted. Tuberculosis screening: No symptoms or risk factors identified. Fall Risk None identified. Assessment: 12:40 GI: Bowel sounds present X 4 quads. Abd is soft Abdomen is tender to palpation in mb8 epigastric area Reports upper abdominal pain, Patient currently denies diarrhea, nausea, vomiting. : No deficits noted. 13:15 Reassessment: Patient and/or family updated on plan of care and expected duration. Pain mb8 level reassessed. Patient is alert, oriented x 3, equal unlabored respirations, skin warm/dry/pink. 13:59 Reassessment: Patient and/or family updated on plan of care and expected duration. Pain mb8 level reassessed. Patient is alert, oriented x 3, equal unlabored respirations, skin warm/dry/pink. Patient states feeling better. Patient states symptoms have improved. 15:44 Reassessment: Patient and/or family updated on plan of care and expected duration. Pain mb8 level reassessed. Patient is alert, oriented x 3, equal unlabored respirations, skin warm/dry/pink. Vital Signs: 12:31 BP 127 / 86; Pulse 88; Resp 20; Temp 98.2; Pulse Ox 100% ; Weight 90.72 kg; Height 5 kb3 ft. 9 in. (175.26 cm); Pain 6/10; 13:15 BP 115 / 78; Pulse 74; Resp 16; Pulse Ox 100% ; Pain 8/10; mb8 13:59 BP 116 / 69; Pulse 58; Resp 14; Pulse Ox 98% on R/A; Pain 3/10; mb8 14:37 BP 119 / 77; Pulse 65; Resp 18; Temp 98.7; Pulse Ox 100% on R/A; Pain 1/10; mb8 15:44 BP 168 / 86; Pulse 70; Resp 18; Pulse Ox 99% ; Pain 2/10; mb8 12:31 Body Mass Index 29.53 (90.72 kg, 175.26 cm) kb3 ED Course: 12:25 Patient arrived in ED. mr 12:30 Luis Laura MD is Attending Physician. salbador 12:32 Triage completed. kb3 12:32 Arm band placed on right wrist. kb3 12:37 Jono Montilla RN is Primary Nurse. mb8 12:40 Inserted saline lock: 18 gauge in right forearm, using aseptic technique. Blood mb8 collected. 12:45 Patient has correct armband on for positive identification. Placed in gown. Bed in low mb8 position. Side rails up X2. Client placed on continuous cardiac and pulse oximetry monitoring. NIBP monitoring applied. 12:45 No provider procedures requiring assistance completed. mb8 13:[address] via wheelchair. mb8 13:[address] from [address]. mb8 13:45 CT Abd/Pelvis - IV Contrast Only Sent. mb8 15:54 Char Levi MD is Referral Physician. salbador 16:04 IV discontinued, intact, bleeding controlled, No redness/swelling at site. Pressure mb8 dressing applied. Administered Medications: 13:05 Drug: NS 0.9% 1000 ml Route: IV; Rate: 1 bolus; Site: right forearm; mb8 13:30 Follow up: IV Status: Completed infusion mb8 13:05 Drug: Pepcid (famotidine) 20 mg Route: IVP; Site: right forearm; mb8 13:57 Follow up: Response: No adverse reaction; Pain is decreased mb8 13:05 Drug: NS 0.9% 1000 ml Route: IV; Rate: 1 bolus; Site: right forearm; mb8 13:30 Follow up: IV Status: Completed infusion mb8 13:07 Drug: Zofran (Ondansetron) 4 mg Route: IVP; Site: right forearm; mb8 13:58 Follow up: Response: No adverse reaction; Nausea is decreased mb8 13:09 Drug: morphine 4 mg Route: IVP; Infused Over: 4 mins; Site: right forearm; mb8 13:58 Follow up: Response: No adverse reaction; Pain is decreased; RASS: Alert and Calm (0) mb8 16:04 Not Given (BG 167 MD awaree): Insulin Regular Human 7 units IVP once mb8 16:04 Not Given (BG 1677): Semglee 100 unit/mL 25 units Sub-Q once mb8 Medication: 12:45 VIS not applicable for this client. mb8 Outcome: 15:55 Discharge ordered by . salbador 16:04 Discharged to home ambulatory, with friend. [email or web address] 16:04 Discharged to home ambulatory, with friend. 16:04 Condition: stable 16:04 Discharge instructions given to patient, Instructed on discharge instructions, follow up and referral plans. medication usage, Demonstrated understanding of instructions, follow-up care, medications, Prescriptions given X 3. 16:08 Patient left the ED. mb8 Signatures: Luis Laura MD MD cha Rivera, Mary mr Elina Hendrix, RN RN kb3 Jono Montilla, RN RN mb8 Corrections: (The following items were deleted from the chart) 12:45 12:44 GI: Bowel sounds present X 4 quads. Abd is soft Abdomen is tender to palpation in mb8 epigastric area Reports upper abdominal pain, Patient currently denies diarrhea, nausea, vomiting, mb8 12:45 12:44 : No deficits noted. mb8 mb8 13:13 01:05 NS 0.9% 1000 ml IV at 1 bolus in right forearm mb8 mb8
[2022-06-25 16:34] VITALS: TEMP 98.7
[2022-06-25 16:35] VITALS: BP 168/86; O2SAT 99
== END 2022-06-25 16:08 | disposition home or self-care (01) ==
LOC: ER 12:21
DX: R10.816 Epigastric abdominal tenderness (principal); E10.65 Type 1 diabetes mellitus with hyperglycemia; K86.1 Other chronic pancreatitis
CPT/HCPCS: 36415; 74177; 80053; 80307; 81003; 81015; 82947; 83690; 85025; 96374; 96375; 99284; J2405; J7030; Q9967

== ENCOUNTER 2022-09-15 13:35 | Emergency (ER) | payer SELFPAY ==
--- OUTSIDE RECORDS SUMMARY | 2022-09-15 13:41 | XMS REPORT | Continuity of Care Document ---
:1995 Author Organization [facility] t Address [address] [place] [address] [place] [address] Care Team Providers Name Role Phone Pcp, Patient Does Not Have A Primary Care Physician [id number] LAZARO HUNTER Attending Clinician Unavailable Augustin Kincaid Attending Clinician Esa Ko DO Attending Clinician Lazaro Hunter MD Attending Clinician Syeda Alberts Attending Clinician SYEDA PERSAUD Attending Clinician Unavailable Doctor Unassigned, [place] Attending Clinician Unavailable LAZARO HUNTER Admitting Clinician Unavailable Lazaro Hunter MD Admitting Clinician Payers Payer Name Policy Type Policy Number Effective Date Expiration Date S [employer] [id number] 2022 NON-CONTRACT 00:00:00 GENERIC Problems Condition Condition Condition Status Onset Resolution Last Treating Co mments Source Name Details Category Date Date Treatment Clinician Date Acute on Acute on Disease Active Unive rs chronic chronic 1-08 ity of pancreatit [place]it [place] [address] [place] [address] Branch Epigastric Epigastric Disease Active U nivers pain pain 1-07 ity of 00:00: [address] Branch Obesity Obesity Disease Active Univers (BMI (BMI 8-12 ity of 30-39.9) 30-39.9) 00:00: [place] 00 Medical Branch 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 U sue adenitis adenitis 2-31 ity of 00:00: [place] 00 Medical Branch Pancreatit Pancreatit Disease Active 2009-09 U sue is is 2-31 ity of 00:00: [place] 00 Medical Branch Abdominal Abdominal Disease Active 2009-09 Uni vers pain pain 2-30 ity of 00:00: [place] 00 Medical Branch Other acne Other acne Disease Active U sue 04-13 ity of 00:00: Medical Branch Viral Viral Disease Active Overview: Univer s warelvi warts 04-13 Formattin ity of 00:00: g of this [place] 00 note Medical might be Branch different from the original. 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 Allergies, Adverse Reactions, Alerts Allergy Allergy Status Severity Reaction(s) Onset Inactive Treating Comm ents Source Name Type Date Date Clinician NO KNOWN Drug Active Univers ALLERGIE Class ity of [facility] [place] [facility] Social History Social Habit Start Date Stop Date Quantity Comments Source History of tobacco Passive smoker Un iversity of use [place] [facility] History SDOH Social Unive rsity of [facility] Med ical Together Branch History SDOH Social Unive rsity of Connections [facility] History SDOH Social Unive rsity of [facility] Medical Membership Branch History SDIA Social Unive rsity of [facility] Medical Meetings Branch History SDOH 2022-09-13 2022-09-13 3 University o f Physical Activity 00:00:00 00:00:00 [place] M edical MPS Branch History SDOH 2022-09-13 2022-09-13 5 University o f Financial 00:00:00 00:00:00 [place] [facility] History SDOH Food 2022-09-13 2022-09-13 1 Univers ity of Worry 00:00:00 00:00:00 [place] [facility] History SDOH Food 2022-09-13 2022-09-13 1 Univers ity of Scarcity 00:00:00 00:00:00 [place] [facility] History SDOH 2022-09-13 2022-09-13 2 University o f Transport Med 00:00:00 00:00:00 [place] Medic al Branch History SDOH 2022-09-13 2022-09-13 2 University o f Transport Non-Med 00:00:00 00:00:00 [place] M edical Branch History SDOH 2022-09-13 2022-09-13 1 University o f Alcohol Frequency 00:00:00 00:00:00 [place] M edical Branch History SDOH 2022-09-13 2022-09-13 0 University o f Alcohol Std Drinks 00:00:00 00:00:00 [place] [facility] History SDIA 2022-09-13 2022-09-13 1 University o f Alcohol Binge 00:00:00 00:00:00 [place] [facility] History SDIA Social 2022-09-13 2022-09-13 5 Unive rsity of Connections Phone 00:00:00 00:00:00 [facility] edical Branch History [facility] Social 2022-09-13 2022-09-13 5 Unive rsity of Connections Living 00:00:00 00:00:00 [place] [facility] History [facility] 2022-09-13 2022-09-13 4 University o f Physical Activity 00:00:00 00:00:00 [facility] DPW Branch Tobacco use and 2022-09-12 2022-09-12 Smokeless Universit y of exposure 00:00:00 00:00:00 tobacco non-user [facility] dical Branch Alcohol intake 2022-09-12 2022-09-12 Ex-drinker [facility] 00:00:00 00:00:00 (finding) [facility] Exposure to 2022-09-01 2022-09-11 Not sure University SARS-CoV-2 (event) 00:00:00 13:58:00 [facility] Education 2022-09-11 2022-09-11 13 [facility] 00:00:00 00:00:00 [facility] Sex Assigned At [birth year] Universit y of 00:00:00 00:00:00 [facility] Smoking Status Start Date Stop Date Source Ex-smoker 2022-09-12 00:00:00 2022-09-12 00:00:00 Universi ty of [facility] Unknown if ever smoked [facility] Medications Ordered Filled Start Stop Current Ordering Indication Dosage Frequency Signature Comments Components Source Medication Medication Date Date Medication? Clinician (SIG) Name Name insulin NPH 2022- No 60U inject 60 Univers and regular 1-10 01-10 Units ity of human 70-30 12:13: 00:00 under the [place] (NOVOLIN 02 :00 skin 2 Medical 70/30 U-100 (two) Branch INSULIN) times 100 unit/mL daily (70-30) before injection breakfast and dinner. insulin NPH Yes [id number] 60U inject 60 Univers and regular 1-10 Units ity of human 70-30 00:00: under the [facility] (NOVOLIN 00 skin 2 Medical 70/30 U-100 (two) Branch INSULIN) times 100 unit/mL daily (70-30) before injection breakfast and dinner. atorvastati 2022- Yes [id number] 40mg Take 1 Univers n 40 mg -10 -10 tablet by ity of tablet 00:00: 05:59 mouth at [place] 00 :00 bedtime [facility] for 30 Branch days. lisinopriL 2022- Yes [id number] 10mg Take 1 Univers 10 mg -10 -10 tablet by ity of tablet 00:00: 05:59 mouth in [place] 00 :00 the Medical morning Branch and 1 tablet in the evening. Do all this for 30 days. morpHINE (4 Yes 4mg 4 mg, Slow Univers mg/mL) 1-09 IV Push, ity of injection 4 09:53: Q4HPRN, Stu as mg 10 Starting Medical on Tue Branch 09/13/22 at 0353, Until Discontinu ed, Routine, Pain (scale 7-10) atorvastati Yes 40mg 40 mg, Univ ers n (LIPITOR) 1-09 Oral, QHS, it y of tablet 40 03:00: [place] dose [place] mg 00 on [place] Medical 09/12/22 at Branch 2100, Until Discontinu ed, Routine lisinopriL Yes 10mg 10 mg, Unive rs (PRINIVIL,Z -08 Oral, BID, it y of ESTRIL) 14:45: First dose [place] tablet 10 00 (after Medical mg last Branch modificati on) on Merna 09/12/22 at 0845, Until Discontinu ed, Routine KCL 2022- No 40meq 40 mEq, Univers (KLOR-CON 09-12 01-08 Oral, ity of M20) tablet 13:45: 14:15 ONCE, 1 [place] 40 mEq 00 :00 dose, On Medical 09/12/22 Branch at 0745, Routine potassium 3-0 2022- No 10meq 10 mEq, IV Univers chloride in 09-12 Piggyback, i ty of water 10 13:00: 16:20 Q1H, 2 [place] mEq/100 mL 00 :00 doses, Medical RTU 10 mEq First dose Bra nch on 09/12/22 at 0700, Last dose on 09/12/22 at 0800, Administer over 60 Minutes, 100 mL lisinopriL 2022-0 2022- No 5mg 5 mg, Unive rs (PRINIVIL,Z 09-12 Oral, BID, i ty of ESTRIL) 05:00: 14:35 First dose Stu as tablet 5 mg 00 :46 on Sat Medica l 09/11/22 at Branch 2300, Until Discontinu ed, Routine lactated 2022-0 Yes 1000mL at 150 Unive rs ringers IV 1-08 mL/hr, ity of infusion 03:15: 1,000 mL, [place] 1,000 mL 00 IV Medical Infusion, Branch CONTINUOUS , Starting on 09/11/22 at 2115, Until Discontinu ed, Routine Sliding 2022-0 Yes Subcutaneo Univ ers Scale 1-07 us, TID ity of Insulin - 23:00: MEALS+HS, Stu as Lispro 00 First dose Medical (HumaLOG) + on Sat Branch Fsbg 09/11/22 at Testing 1700, Until Discontinu ed, Routine enoxaparin 2022-0 Yes 40mg 40 mg, Unive rs (LOVENOX) - Subcutaneo ity of injection 23:00: us, DAILY, [place] 40 mg 00 First dose Medical on Sat Branch 09/11/22 at 1700, Until Discontinu ed, Routine lactated 2022-0 2022- No 1000mL at 125 Univ ers ringers IV 09-11 01-08 mL/hr, ity of infusion 19:15: 03:05 1,000 mL, Stu as 1,000 mL 00 :27 IV Medical Infusion, Branch CONTINUOUS , Starting on 09/11/22 at 1315, Until 09/11/22 at 2105, Routine lactated 2023-0 2023- No 1000mL at 999 Univ ers ringers IV 09-11 mL/hr, ity of infusion 19:00: 19:56 1,000 mL, Stu as 1,000 mL 00 :58 Intravenou Medic al s, ONCE, 1 Branch dose, On 09/11/22 at 1300, Routine NaCl 0.9% 2022- No 1000mL at 999 Uni vers (NS) IV 09-11 mL/hr, ity of infusion 18:15: 19:00 Intravenou [place] 1,000 mL 00 :00 s, ONCE, 1 Medic al dose, On Branch 09/11/22 at 1215, MARITA FENTanyl PF 2022- No 50ug 50 mcg, Un brendan (SUBLIMAZE 09-11 Slow IV ity o f (PF)) 18:05: 18:10 Push, [place] injection 00 :00 ONCE, 1 Medical 50 mcg dose, On Branch 09/11/22 at 1215, MARITA ondansetron 2022- No 4mg 4 mg, Slow Univers (ZOFRAN 09-11 IV Push, ity of (PF)) 18:05: 18:09 ONCE, 1 [place] injection 4 00 :00 dose, On Medi meenu mg 09/11/22 Branch at 1215, MARITA glucagon Yes 1mg 1 mg, Univers (GLUCAGEN 09-11 Intramuscu ity of DIAGNOSTIC 18:04: lar, PRN, [place] KIT) 12 Starting Medical injection 1 on Sat Branch mg 09/11/22 at 1204, Until Discontinu ed, MARITA, Blood Glucose < or = 70 mg/dL and patient is unable to swallow or has mental changes. dextrose 50 2022-0 Yes 25mL 25 mL, Univ ers % in water 09-11 Slow IV ity of (D50W) 18:04: Push, PRN, [place] injection 12 Starting Medica l 25 mL on Sat Branch 09/11/22 at 1204, Until Discontinu ed, MARITA, Blood Glucose < or = 70 mg/dL and patient is unable to swallow or has mental status changes. ondansetron 2022-0 Yes 4mg 4 mg, Slow Univers (ZOFRAN 09-11 IV Push, ity of (PF)) 18:04: Q6HPRN, [place] injection 4 03 Starting Medi meenu mg on [facility] Branch 09/11/22 at 1204, Until Discontinu ed, Routine, Nausea and Vomiting (N/V) morpHINE (2 2022- No 2mg 2 mg, Slow Univers mg/mL) 09-11 IV Push, ity of injection 2 18:03: 18:02 Q4HPRN, [place] mg 52 :52 Starting Medical on [facility] Branch 09/11/22 at 1203, Until 09/12/22 at 1202, Routine, Pain (scale 7-10) HYDROcodone 2022- No 1{tbl} 1 tablet, Univers -acetaminop 09-11 Oral, ity of hen (NORCO 18:03: 18:02 Q6HPRN, Stu as 5) 5-325 mg 48 :48 Starting Medi meenu tablet 1 on [facility] tablet 09/11/22 at 1203, Until 09/13/22 at 1202, Routine, Pain (scale 4-6) acetaminoph Yes 650mg 650 mg, Un brendan en 09-11 Oral, ity of (TYLENOL) 18:03: Q6HPRN, [place] tablet 650 39 Starting Medic al mg on [facility] Branch 09/11/22 at 1203, Until Discontinu ed, Routine, Pain (scale 1-3) insulin NPH 2022- No 60U 60 Units, Univers and regular 09-11 Subcutaneo i ty of human 70-30 18:03: 18:54 us, ONCE, [place] (70-30 00 :00 1 dose, On Medical U-100 [facility] 09/11/22 Branch INSULIN) at 1215, 100 unit/mL MARITA (70-30) injection 60 Units FENTanyl PF 2022- No 50ug 50 mcg, Un brendan (SUBLIMAZE 09-11 Slow IV ity o f (PF)) 16:38: 16:41 Push, [place] injection 00 :00 ONCE, 1 Medical 50 mcg dose, On Branch 09/11/22 at 1045, MARITA iopamidol 2022- No [id number] 78mL 78 mL, U nivers (ISOVUE 09-11 Intravenou ity o f 370-500 mL) 16:35: 16:45 s, ONCE, 1 [place] injection 00 :00 dose, On Medica l 78 mL 09/11/22 Branch at 1045, Routine ondansetron 2022- No [id number] 4mg 4 mg, Slow Univers (ZOFRAN 09-11 IV Push, ity of (PF)) 15:45: 15:50 ONCE, 1 [place] injection 4 00 :00 dose, On Medi meenu mg 09/11/22 Branch at 0945, MARITA famotidine 2022- No [id number] 20mg 20 mg, Univers (PEPCID 09-11 Slow IV ity of (PF)) 15:45: 15:50 Push, [place] injection 00 :00 ONCE, 1 Medical 20 mg dose, On Branch 09/11/22 at 0945, MARITA NaCl 0.9% No [id number] 1000mL at 999 Univers (NS) IV 09-11 mL/hr, ity of infusion 15:33: 17:00 Intravenou [place] 1,000 mL 00 :00 s, ONCE, 1 Medic al dose, On Branch 09/11/22 at 0945, MARITA sodium Yes [id number] 5mL 5 mL, Univer s chloride 09-11 Intravenou ity o f (NS) 15:32: s, PRN, [place] injection 5 59 Starting Medi meenu mL on Sat Branch 09/11/22 at 0932, Until Discontinu ed, Routine, IV line flushing maalox:diph 2020- No 15mL 15 mL, Uni vers enhydrAMINE 11-08 Oral, ity of :lidocaine 20:45: 20:39 ONCE, 1 Stu as 2 % viscous 00 :00 dose, Sat Med ical 1:1:1 11/08/20 at Branch (FIRST-MOUT 1445, MARITA HWASH BLM) oral suspension 15 mL insulin 2020- No 9U 9 Units, Unive rs regular 11-08 Slow IV ity of human 20:30: 19:39 Push, [place] (HUMULIN R) 00 :00 ONCE, 1 Medic al injection 9 dose, Sat Bra [facility] Units 11/08/20 at 1430, STAT ondansetron 2020- No 4mg 4 mg, Slow Univers (ZOFRAN -02 05-06 IV Push, ity of (PF)) 19:45: 18:49 ONCE, 1 [place] injection 4 00 :00 dose, Sat Med ical mg 11/08/20 at Branch 1345, MARITA morpHINE 2020- No 4mg 4 mg, Slow Un brendan injection 4 11-08-06 IV Push, ity of mg 19:45: 18:49 ONCE, 1 [place] 00 :00 dose, Sat Medical 11/08/20 at Branch 1345, STAT NaCl 0.9% 2020- No 1000mL at 999 Uni vers (NS) bolus 3-06 03-06 mL/hr, ity of infusion 19:30: 20:37 1,000 mL, Stu as 1,000 mL 00 :00 IV Medical Infusion, Branch ONCE, 1 dose, 11/08/20 at 1330, MARITA NaCl 0.9% 2020- No 1000mL at 999 Uni vers (NS) bolus 3-06 03-06 mL/hr, ity of infusion 18:30: 19:39 1,000 mL, Stu as 1,000 mL 00 :00 IV Medical Infusion, Branch ONCE, 1 dose, 11/08/20 at 1230, MARITA ondansetron Yes [id number] 4mg Take 1 Univers (ZOFRAN 3-06 tablet by ity of ODT) 4 mg 00:00: mouth [place] disintegrat 00 every 8 Medic al ing tablet (eight) Branch hours as needed for Nausea and Vomiting (N/V). dicyclomine Yes [id number] 20mg Take 1 Univers 20 mg 3-06 tablet by ity of tablet 00:00: mouth 4 [place] 00 (four) Medical times Branch daily as needed for Abdominal pain. ondansetron 2020-0 2022- No [id number] 4mg Take 1 Univers (ZOFRAN 3-06 -07 tablet by ity of ODT) 4 mg 00:00: 00:00 mouth [place] disintegrat 00 :00 every 8 Medic al ing tablet (eight) Branch hours as needed for Nausea and Vomiting (N/V). dicyclomine 2022- No [id number] 20mg Take 1 Univers 20 mg 11-08 tablet by ity of tablet 00:00: 00:00 mouth 4 [place] 00 :00 (four) Medical times Branch daily as needed for Abdominal pain. No known No Univers medications ity of [facility] Vital Signs Vital Name Observation Time Observation Value Comments Source Systolic blood 2022-09-14 17:21:00 130 mm[Hg] Univer sity of [facility] Diastolic blood 2022-09-14 17:21:00 93 mm[Hg] [facility] Heart rate 2022-09-14 17:21:00 87 /min [facility] Body temperature 2022-09-14 17:21:00 35.56 [facility] rate 2022-09-14 17:21:00 18 /min [facility] Oxygen saturation in 2022-09-14 17:21:00 98 /min University of Arterial blood by [place] [employer] Pulse oximetry Branch Body weight 2022-09-14 09:02:00 98.476 kg [facility] BMI 2022-09-14 09:02:00 32.06 kg/m2 [facility] Body height 2022-09-11 19:14:00 175.3 cm [facility] Systolic blood 2020-11-08 21:00:00 136 mm[Hg] Univer sity of [facility] Diastolic blood 2020-11-08 21:00:00 95 mm[Hg] Unive rsity of [facility] Heart rate 2020-11-08 21:00:00 93 /min [facility] Respiratory rate 2020-11-08 21:00:00 16 /min Univ ersity [facility] Oxygen saturation in 2020-11-08 21:00:00 98 /min University of Arterial blood by [facility] Pulse oximetry Branch Body temperature 2020-11-08 18:12:00 36.44 Zenaida [facility] Body height 2020-11-08 18:12:00 175.3 cm [facility] Body weight 2020-11-08 18:12:00 92.987 kg [facility] BMI 2020-11-08 18:12:00 30.27 kg/m2 [facility] Procedures Procedure Date / Time Performing Clinician Source Performed POCT GLUCOSE 2022-09-14 17:22:00 Elsa [facility] (AUTOMATED) Medical Branch LIPASE 2022-09-14 11:57:00 Erich [facility] BASIC METABOLIC PANEL 2022-09-14 11:57:00 [facility] (NA, K, CL, CO2, Medical Branch GLUCOSE, BUN, CREATININE, CA) LIPID PANEL 2022-09-14 11:57:00 neela [facility] ([id number])(TOTAL Medical [place] CHOLESTEROL, TRIGLYCERIDES, HDL) CBC WITH DIFF 2022-09-14 11:57:00 Erich [facility] POCT GLUCOSE 2022-09-14 02:35:00 Elsa [facility] (AUTOMATED) Medical Branch POCT GLUCOSE 2022-09-13 22:59:00 Elsa [facility] (AUTOMATED) Medical Branch POCT GLUCOSE 2022-09-13 17:43:00 Elsa [facility] (AUTOMATED) Medical Branch POCT GLUCOSE 2022-09-13 13:30:00 Elsa [facility] (AUTOMATED) Medical Branch BASIC METABOLIC PANEL 2022-09-13 09:26:00 Emy Hyde [facility] (NA, K, CL, CO2, Medical Branch GLUCOSE, BUN, CREATININE, CA) POCT GLUCOSE 2022-09-12 22:34:00 Elsa [facility] (AUTOMATED) Medical Branch POCT GLUCOSE 2022-09-12 17:15:00 Elsa [facility] (AUTOMATED) Medical Branch POCT GLUCOSE 2022-09-12 13:44:00 Elsa [facility] (AUTOMATED) Medical Branch MAGNESIUM 2022-09-12 09:07:00 [facility] 2022-09-12 09:07:00 [id number] (ALB,T.PRO,BILI Medical Branch T,BU/BC,ALT,AST,ALK PHOS) BASIC METABOLIC PANEL 2022-09-12 09:07:00 Emy Hyde [facility] (NA, K, CL, CO2, Medical Branch GLUCOSE, BUN, CREATININE, CA) LIPID PANEL 2022-09-12 09:07:[address] [facility] ([id number])(TOTAL Medical Branch CHOLESTEROL, TRIGLYCERIDES, HDL) CBC WITH DIFF 2022-09-12 09:07:00 Barrett Emy Cris [facility] POCT GLUCOSE 2022-09-12 09:01:00 Maikel [facility] (AUTOMATED) Medical Branch POCT GLUCOSE 2022-09-12 02:38:00 Maikel [facility] (AUTOMATED) Medical Branch POCT GLUCOSE 2022-09-11 22:42:00 Maikel [facility] (AUTOMATED) Medical Branch POCT GLUCOSE 2022-09-11 18:57:00 Mateus [facility] (AUTOMATED) [facility] Branch POCT GLUCOSE(AGE 2022-09-11 17:22:00 Mateus [facility] >30DAYS) Medical Branch POCT GLUCOSE 2022-09-11 17:21:00 Mateus [facility] (AUTOMATED) [facility] Branch CT ABDOMEN PELVIS W 2022-09-11 16:38:00 Mateus [facility] CONTRAST [facility] Branch POCT GLUCOSE 2022-09-11 15:59:00 Mateus [facility] (AUTOMATED) Medical Branch LIPASE 2022-09-11 15:48:00 Mateus [facility] COMP. METABOLIC PANEL 2022-09-11 15:48:00 Mateus [facility] ([id number]) Medical Branch CBC WITH DIFF 2022-09-11 15:48:00 Mateus [facility] GLYCOSYLATED HEMOGLOBIN 2022-09-11 15:48:00 Esa Ko [facility] (A1C) Medical Branch URINALYSIS 2022-09-11 15:46:00 [facility] [place] [facility] f [facility] CONSENT/REFUSAL FOR 2022-09-11 15:16:37 Doctor Unassigned, No [facility] Name [facility] Branch POCT GLUCOSE 2020-11-08 20:26:00 [facility] (AUTOMATED) Medical Branch LIPASE 2020-11-08 18:29:00 [facility] HEPATIC FUNCTION PANEL 2020-11-08 18:29:00 [facility] ([id number]) (ALB,T.PRO,BILI Medical Branch T,BU/BC,ALT,AST,ALK PHOS) BASIC METABOLIC PANEL 2020-11-08 18:29:00 [facility] (NA, K, CL, CO2, Medical Branch GLUCOSE, BUN, CREATININE, CA) CBC WITH DIFF 2020-11-08 18:29:00 [facility] URINALYSIS 2020-11-08 18:29:00 [facility] NOTICE OF PRIVACY 2020-11-08 18:06:16 Doctor Unassigned, No [facility] PRACTICES Name [facility] CONSENT/REFUSAL FOR 2020-11-08 18:06:04 Doctor Unassigned, No [facility] Name [facility] Encounters Start End Encounter Admission Attending Care Care Encounter Source Date/Time Date/Time Type Type Clinicians Facility Department ID 2021-09-30 [facility] [id number] Common 12:34:38 [id number] [facility] 2022-09-11 2022-09-14 Inpatient X ELSA [facility] [id number] Univers 09:26:00 13:00:00 LAZARO laurent [facility] 2022-09-11 2022-09-14 [facility] Libiabrittany Frankvenita [facility] [id number] Univers 09:26:00 13:00:00 Encounter Esa Ko [id number] mehran Lazaro Hunter [id number] [facility] [id number] [facility] 081 Branch 2020-11-08 2020-11-08 Emergency [facility] [id number] Univers 12:16:00 15:38:00 Syeda Laurent [id number] i ty of [place] 4.2.7.2.686 [facility] [id number] [facility] 084 Branch 2020-11-08 2020-11-08 Emergency X [facility] ERT [id number] Univers 12:06:00 12:06:00 SYEDA itissac of [facility] 2020-11-08 2020-11-08 Orders Doctor CARLOS [id number] Univers 00:00:00 00:00:00 Only Unassigned, JOSE [id number] ity of [place] [facility] [id number] [facility] [id number] [facility] 009 Branch Results Test Description Test Time Test Comments Results Result Comments Source POCT GLUCOSE (AUTOMATED) 2022-09-14 18:35:20 Test Item Value Reference Range Interpretation Comme nts POCT GLU (test code = 3731338807) 283 mg/dL 70-110 H Lab Interpretation (test code = 84785-5) Abnormal [facility] GLUCOSE (AUTOMATED)2022-09-14 02:40:24 Test Item Value Reference Range Interpretation Comments POCT GLU (test code = 8202370952) 191 mg/dL 70-110 H Lab Interpretation (test code = Abnormal 70822-7) [facility] GLUCOSE (AUTOMATED)2022-09-13 23:13:20 Test Item Value Reference Range Interpretation Comments POCT GLU (test code = 9868642329) 126 mg/dL 70-110 H Lab Interpretation (test code = Abnormal 77292-3) [facility] GLUCOSE (AUTOMATED)2022-09-13 17:51:10 Test Item Value Reference Range Interpretation Comments POCT GLU (test code = 9350192585) 270 mg/dL 70-110 H Lab Interpretation (test code = Abnormal 47563-6) [facility] GLUCOSE (AUTOMATED)2022-09-13 14:08:01 Test Item Value Reference Range Interpretation Comments POCT GLU (test code = 7757078428) 177 mg/dL 70-110 H Lab Interpretation (test code = Abnormal 83158-1) [facility] GLUCOSE (AUTOMATED)2022-09-12 22:53:55 Test Item Value Reference Range Interpretation Comments POCT GLU (test code = 6990764104) 207 mg/dL 70-110 H Lab Interpretation (test code = Abnormal 27649-6) [facility] GLUCOSE (AUTOMATED)2022-09-12 18:09:02 Test Item Value Reference Range Interpretation Comments POCT GLU (test code = 8675994624) 92 mg/dL 70-110 Lab Interpretation (test code = Normal 91039-3) [id number]TOTAL CHOLESTEROL, TRIGLYCERIDES, HDL)2022-09-12 14:58:08 Test Item Value Reference Range Interpretation Comments CHOL (test code = 138 mg/dL 120-200 [id number]) HDL (test code = 23 mg/dL See_Comment L [Automated message] [id number]) The system [employer] generated this result transmit patricio reference range : >=40. The refer ence range was not u sed to interpret th is result as normal/abnormal . HDLC RATIO (test code = See_Comment H [Au tomated message] [id number]) The system [employer] generated this result transmit patricio reference range : <=5.0. The refe rence range was not u sed to interpret th is result as normal/abnormal . TRIG (test code = 171 mg/dL 30-170 H [id number]) LDL CHOL (test code = 81 mg/dL See_Comment [Auto mated message] 70488-1) The system [employer]gen[employer] generated this result transmit patricio reference range : <=160. The refe rence range was not u sed to interpret th is result as normal/abnormal . VLDL (test code = 34 mg/dL 5-60 1638529024) Lab Interpretation (test Abnormal code = 81103-3) [facility] GLUCOSE (AUTOMATED)2022-09-12 13:54:38 Test Item Value Reference Range Interpretation Comments POCT GLU (test code = 4081924355) 84 mg/dL 70-110 Lab Interpretation (test code = Normal 07037-7) [facility] (ALB,T.PRO,BILI T,BU/BC,ALT,AST,ALK PHOS)2022-09-12 13:03:03 Test Item Value Reference Range Interpretation Comments TOTAL BILI (test code = 0961258020) 1.0 mg/dL 0.1-1.1 BILI UNCON (test code = 8503973699) 0.8 mg/dL 0.1-1.1 BILI CONJ (test code = 4660151372) 0.0 mg/dL 0.0-0.3 T PROTEIN (test code = 2041593826) 6.7 g/dL 6.3-8.2 ALBUMIN (test code = 7041847234) 4.0 g/dL 3.5-5.0 ALK PHOS (test code = 9801663470) 106 U/L 34-122 ALTv (test code = 1742-6) 146 U/L 5-50 H AST(SGOT) (test code = 6373198075) 81 U/L 13-40 H Lab Interpretation (test code = Abnormal 57003-4) [facility] 13:02:43 Test Item Value Reference Range Interpretation Comments MAGNESIUM (test code = 2740241464) 1.8 mg/dL 1.7-2.4 Lab Interpretation (test code = Normal 96278-9) [facility] (NA, K, CL, CO2, GLUCOSE, BUN, CREATININE, CA)2022-09-12 12:10:26 Test Item Value Reference Range Interpretation Comments NA (test code = 142 mmol/L 135-145 2531703904) K (test code = 3.1 mmol/L 3.5-5.0 L 6810102724) CL (test code = 106 mmol/L 98-108 2854261791) CO2 TOTAL (test code = 24 mmol/L 23-31 3252220653) AGAP (test code = 2-16 0682978411) BUN (test code = 8 mg/dL 7-23 9448733721) GLUCOSE (test code = 73 mg/dL 70-110 2056523215) CREATININE (test code = 0.72 mg/dL 0.60-1.25 4532035374) CALCIUM (test code = 8.1 mg/dL 8.6-10.6 L 3028730521) eGFR (test code = mL/min/1.73m2 3474681060) RAFAEL (test code = RAFAEL) Association of [...] tests). Lab Interpretation Abnormal (test code = 17262-7) [facility] WITH [id number] 11:46:12 Test Item Value Reference Range Interpretation Comments WBC (test code = See_Comment [Automated 6267-2) message] The sy stem which generated this result transmitted reference range : 4.20 - 10.70 10*3/?L. The reference range was not used to interpret this result as normal/abnormal . RBC (test code = See_Comment [Automated 309-5) message] The sy stem which generated this result transmitted reference range : 4.26 - 5.52 10*6/?L. The reference range was not used to interpret this result as normal/abnormal . HGB (test code = 14.6 g/dL 12.2-16.4 718-7) HCT (test code = 41.7 % 38.4-49.3 4544-3) MCV (test code = 85.1 fL 81.7-95.6 787-2) MCH (test code = 29.8 pg 26.1-32.7 785-6) MCHC (test code = 35.0 g/dL 31.2-35.0 786-4) RDW-SD (test code = 36.0 fL 38.5-51.6 L 52589-1) RDW-CV (test code = 11.9 % 12.1-15.4 L 788-0) PLT (test code = See_Comment [Automated 777-3) message] The sy stem which generated this result transmitted reference range : 150 - 328 10*3/ ?L. The reference r teresita was not used to interpret this result as normal/abnormal . MPV (test code = 10.7 fL 9.8-13.0 19646-5) NRBC/100 WBC (test See_Comment [Automat ed code = 9776618969) message] The system which generated this result transmitted reference range : 0.0 - 10.0 /100 WBCs. The refer ence range was not u sed to interpret th is result as normal/abnormal . NRBC x10^3 (test code See_Comment [Auto mated = 9652348910) message] The s ystem which generated this result transmitted reference range : 10*3/?L. The reference range was not used to interpret this result as normal/abnormal . GRAN MAT (NEUT) % 50.2 % (test code = 770-8) IMM GRAN % (test code 0.40 % = 4792459183) LYMPH % (test code = 37.0 % 736-9) MONO % (test code = 8.3 % 5905-5) EOS % (test code = 3.6 % 713-8) BASO % (test code = 0.5 % 706-2) GRAN MAT x10^3(ANC) 4.81 10*3/uL 1.99-6.95 (test code = 2581235415) IMM GRAN x10^3 (test 0.04 10*3/uL 0.00-0.06 code = 1295392068) LYMPH x10^3 (test code 3.56 10*3/uL 1.09-3.23 H = 731-0) MONO x10^3 (test code 0.80 10*3/uL 0.36-1.02 = 742-7) EOS x10^3 (test code = 0.35 10*3/uL 0.06-0.53 711-2) BASO x10^3 (test code 0.05 10*3/uL 0.01-0.09 = 704-7) Lab Interpretation Abnormal (test code = 19789-9) [facility] GLUCOSE (AUTOMATED)2022-09-12 11:19:34 Test Item Value Reference Range Interpretation Comments POCT GLU (test code = 5917712735) 70 mg/dL 70-110 Lab Interpretation (test code = Normal 41489-2) [facility] GLUCOSE (AUTOMATED)2022-09-12 02:46:59 Test Item Value Reference Range Interpretation Comments POCT GLU (test code = 1511335054) 90 mg/dL 70-110 Lab Interpretation (test code = Normal 69386-5) [facility] GLUCOSE (AUTOMATED)2022-09-11 23:13:35 Test Item Value Reference Range Interpretation Comments POCT GLU (test code = 4194569122) 120 mg/dL 70-110 H Lab Interpretation (test code = Abnormal 66581-9) [facility] (A1C)2022-09-11 20:41:39 Test Item Value Reference Range Interpretation Comments HGB A1C (test code = 10.1 % 4.0-5.7 H 4548-4) RAFAEL (test code = RAFAEL) Reference RangesNormal: <5.7%Prediabetes: 5.7 - 6.4%Diabetes: > 6.5% Lab Interpretation (test Abnormal code = 85191-0) [facility] GLUCOSE (AUTOMATED)2022-09-11 19:01:23 Test Item Value Reference Range Interpretation Comments POCT GLU (test code = 7004688819) 302 mg/dL 70-110 H Lab Interpretation (test code = Abnormal 29541-3) [facility] GLUCOSE (AUTOMATED)2022-09-11 19:01:23 Test Item Value Reference Range Interpretation Comments POCT GLU (test code = 9702425605) 277 mg/dL 70-110 H Lab Interpretation (test code = Abnormal 17807-0) [facility] GLUCOSE (AUTOMATED)2022-09-11 19:01:23 Test Item Value Reference Range Interpretation Comments POCT GLU (test code = 3648499803) 283 mg/dL 70-110 H Lab Interpretation (test code = Abnormal 22812-1) [facility] GLUCOSE(AGE >30DAYS)2022-09-11 17:22:00 Test Item Value Reference Range Interpretation Comments POCT Glu (age>30days) (test code = 277 mg/dL 70-110 A 3342) Lab Interpretation (test code = Abnormal 16108-5) [facility] Met[facility] [id number] 16:11:48 Test Item Value Reference Range Interpretation Comments NA (test code = 137 mmol/L 135-145 0798073214) K (test code = 4.5 mmol/L 3.5-5.0 5460720248) CL (test code = 102 mmol/L 98-108 7406276160) CO2 TOTAL (test code = 22 mmol/L 23-31 L 8188882357) AGAP (test code = 2-16 5265548401) BUN (test code = 15 mg/dL 7-23 2044900548) GLUCOSE (test code = 318 mg/dL 70-110 H 2548618837) CREATININE (test code = 0.76 mg/dL 0.60-1.25 3382031107) TOTAL BILI (test code = 1.5 mg/dL 0.1-1.1 H 8955864387) CALCIUM (test code = 9.1 mg/dL 8.6-10.6 7545365365) T PROTEIN (test code = 7.7 g/dL 6.3-8.2 4654632482) ALBUMIN (test code = 5.0 g/dL 3.5-5.0 9176109416) ALK PHOS (test code = 124 U/L 34-122 H 9056321764) ALTv (test code = 173 U/L 5-50 H 1742-6) AST(SGOT) (test code = 76 U/L 13-40 H 1656170781) eGFR (test code = mL/min/1.73m2 6497332177) RAFAEL (test code = RAFAEL) Association of [...] tests). Lab Interpretation Abnormal (test code = 64945-1) [facility]enton[facility], [id number] 16:11:22 Test Item Value Reference Range Interpretation Comments LIPASE (test code = 9777029279) 22 U/L 0-220 Lab Interpretation (test code = Normal 95114-3) [facility] with [id number] 15:57:05 Test Item Value Reference Range Interpretation Comments WBC (test code = See_Comment H [Automated 3932-2) message] The sy stem which generated this result transmitted reference range : 4.20 - 10.70 10*3/?L. The reference range was not used to interpret this result as normal/abnormal . RBC (test code = See_Comment [Automated 699-8) message] The sy stem which generated this result transmitted reference range : 4.26 - 5.52 10*6/?L. The reference range was not used to interpret this result as normal/abnormal . HGB (test code = 16.2 g/dL 12.2-16.4 718-7) HCT (test code = 46.2 % 38.4-49.3 4544-3) MCV (test code = 83.8 fL 81.7-95.6 787-2) MCH (test code = 29.4 pg 26.1-32.7 785-6) MCHC (test code = 35.1 g/dL 31.2-35.0 H 786-4) RDW-SD (test code = 35.5 fL 38.5-51.6 L 76027-2) RDW-CV (test code = 11.8 % 12.1-15.4 L 788-0) PLT (test code = See_Comment [Automated 777-3) message] The sy stem which generated this result transmitted reference range : 150 - 328 10*3/ ?L. The reference r teresita was not used to interpret this result as normal/abnormal . MPV (test code = 10.3 fL 9.8-13.0 72259-5) NRBC/100 WBC (test See_Comment [Automat ed code = 5226503463) message] The system which generated this result transmitted reference range : 0.0 - 10.0 /100 WBCs. The refer ence range was not u sed to interpret th is result as normal/abnormal . NRBC x10^3 (test code See_Comment [Auto mated = 9718902370) message] The s ystem which generated this result transmitted reference range : 10*3/?L. The reference range was not used to interpret this result as normal/abnormal . GRAN MAT (NEUT) % 64.6 % (test code = 770-8) IMM GRAN % (test code 0.50 % = 7668685054) LYMPH % (test code = 25.3 % 736-9) MONO % (test code = 7.3 % 5905-5) EOS % (test code = 1.9 % 713-8) BASO % (test code = 0.4 % 706-2) GRAN MAT x10^3(ANC) 7.62 10*3/uL 1.99-6.95 H (test code = 8354018572) IMM GRAN x10^3 (test 0.06 10*3/uL 0.00-0.06 code = 1504175303) LYMPH x10^3 (test code 2.98 10*3/uL 1.09-3.23 = 731-0) MONO x10^3 (test code 0.86 10*3/uL 0.36-1.02 = 742-7) EOS x10^3 (test code = 0.22 10*3/uL 0.06-0.53 711-2) BASO x10^3 (test code 0.05 10*3/uL 0.01-0.09 = 704-7) Lab Interpretation Abnormal (test code = 32110-0) [facility]2020-[facility] 20:30:00 Test Item Value Reference Range Interpretation Comments POCT GLU (test code = 6903785276) 181 mg/dL 70-110 H Lab Interpretation (test code = Abnormal 33164-4) [facility] (ALB, T.PRO, BILI T, BU/BC, ALT, AST, ALK PHOS)2020-11-08 18:48:00 Test Item Value Reference Range Interpretation Comments TOTAL BILI (test code = 8580566309) 0.8 mg/dL 0.1-1.1 BILI UNCON (test code = 5486222418) 0.8 mg/dL 0.1-1.1 BILI CONJ (test code = 2429027929) 0.0 mg/dL 0-0.3 T PROTEIN (test code = 6811193424) 7.8 g/dL 6.3-8.2 ALBUMIN (test code = 6332150837) 4.7 g/dL 3.5-5 ALK PHOS (test code = 6542866815) 147 U/L 34-122 H ALTv (test code = 1742-6) 48 U/L 5-50 AST(SGOT) (test code = 4657212439) 42 U/L 13-40 H Lab Interpretation (test code = Abnormal 87105-6) [facility]entonLip[facility] [id number] 18:48:00 Test Item Value Reference Range Interpretation Comments LIPASE (test code = 2053423263) 27 U/L 0-220 Lab Interpretation (test code = Normal 59900-5) [facility] Metabolic Panel (NA, K, CL, CO2, GLUCOSE, BUN, CREATININE, CA)2020-11-08 18:48:00 Test Item Value Reference Range Interpretation Comments NA (test code = 134 mmol/L 135-145 L 1738891878) K (test code = 4.0 mmol/L 3.5-5 4280674460) CL (test code = 96 mmol/L 98-108 L 7815746907) CO2 TOTAL (test code = 29 mmol/L 23-31 2984208210) AGAP (test code = 2-16 7203998039) BUN (test code = 10 mg/dL 7-23 3543850022) GLUCOSE (test code = 368 mg/dL 70-110 H 6156646615) CREATININE (test code = 0.58 mg/dL 0.6-1.25 L 0343297749) CALCIUM (test code = 9.1 mg/dL 8.6-10.6 1614595367) eGFR Calculation mL/min/1.73m2 (Non-) (test code = 0175334377) eGFR Calculation mL/min/1.73m2 () (test code = 1753755489) RAFAEL (test code = RAFAEL) Association of [...] tests). Lab Interpretation Abnormal (test code = 74123-1) [facility]inalysis20[facility] 18:39:00 Test Item Value Reference Range Interpretation Comments APPEARANCE (test code = Clear Clear 2432176005) COLOR (test code = Yellow Yellow 7694884977) PH (test code = 4.8-8.0 4178534731) SP GRAVITY (test code = 1.003-1.030 H 9623965159) GLU U QUAL (test code = 500 mg/dL Normal A 2302095218) BLOOD (test code = Negative Negative 5295633050) KETONES (test code = 5 mg/dL Negative A 4771483263) PROTEIN (test code = Negative Negative 2887-8) UROBILIN (test code = Normal Normal 7755630324) BILIRUBIN (test code = Negative Negative 1593265328) NITRITE (test code = Negative Negative 7611115624) LEUK ALYSHA (test code = Negative Negative 2307663007) RBC/HPF (test code = See_Comment [Autom ated message] 5669753473) The system [employer] generated this result transmit patricio reference range : 0 - 3 HPF. The refe rence range was not u sed to interpret th is result as normal/abnormal . WBC/HPF (test code = See_Comment [Autom ated message] 8937492757) The system [employer] generated this result transmit patricio reference range : 0 - 5 HPF. The refe rence range was not u sed to interpret th is result as normal/abnormal . BACTERIA (test code = Negative Negative 7442053194) Lab Interpretation (test Abnormal code = 36434-7) [facility] with [id number] 18:36:00 Test Item Value Reference Range Interpretation [...] (test code = 33.7 fL 38.5-51.6 L 22414-9) RDW-CV (test code = 11.5 % 12.1-15.4 L 788-0) PLT (test code = See_Comment H [Automated 777-3) message] The sy stem which generated this result transmitted reference range : 150 - 328 10*3/ ?L. The reference r teresita was not used to interpret this result as normal/abnormal . MPV (test code = 10.2 fL 9.8-13 89518-6) NRBC/100 WBC (test See_Comment [Automat ed code = 9463806279) message] The system which generated this result transmitted reference range : 0.0 - 10.0 /100 WBCs. The refer ence range was not u sed to interpret th is result as normal/abnormal . NRBC x10^3 (test code <0.01 See_Comment [Auto mated = 3887818423) message] The s ystem which generated this result transmitted reference range : 10*3/?L. The reference range was not used to interpret this result as normal/abnormal . GRAN MAT (NEUT) % 60.3 % (test code = 770-8) IMM GRAN % (test code 0.70 % = 5510045867) LYMPH % (test code = 29.2 % 736-9) MONO % (test code = 4.7 % 5905-5) EOS % (test code = 3.9 % 713-8) BASO % (test code = 1.2 % 706-2) GRAN MAT x10^3(ANC) 6.44 10*3/uL 1.99-6.95 (test code = 6071809974) IMM GRAN x10^3 (test 0.07 10*3/uL 0-0.06 H code = 2153625255) LYMPH x10^3 (test code 3.12 10*3/uL 1.09-3.23 = 731-0) MONO x10^3 (test code 0.50 10*3/uL 0.36-1.02 = 742-7) EOS x10^3 (test code = 0.42 10*3/uL 0.06-0.53 711-2) BASO x10^3 (test code 0.13 10*3/uL 0.01-0.09 H = 704-7) Lab Interpretation Abnormal (test code = 56444-9) [facility]"
[2022-09-15 14:12] LABS: Absolute Lymphocytes (CBC) 2.3 K/uL (0.7-4.9); Hematocrit 43.7 % (39.6-49.0); Lymphocytes % 27.8 % (15.3-44.8); MCV 83.4 fL (80-100); MPV 8.4 fL (7.6-11.3); RBC Red Blood Cell Count 5.24 M/uL (4.33-5.43)
[2022-09-15] MEDS ORDERED: FAMOTIDINE 20 MG/2 ML VIAL IV ONE (14:25)
[2022-09-15 15:05] LABS: Albumin 4.2 g/dL (3.4-5.0); Potassium 3.3 mmol/L (3.5-5.1); Protein, Total 7.7 g/dL (6.4-8.2)
[2022-09-15] MEDS ORDERED: POTASSIUM CL SA 10 MEQ TAB PO ONE (15:25)
--- NOTE | 2022-09-15 16:51 | ER ---
Nurse's Notes [facility] Name: Jimenez Patrick Age: 27 yrs Sex: Male : 1995 Arrival Date: 09/15/2022 Time: 13:36 Bed 11 Private MD: Diagnosis: Other chronic pancreatitis Presentation: 09/15 13:39 Chief complaint: Patient states: "I was admitted to [facility] for chronic pancreatitis and I aa5 was released yesterday but the pain hasn't gone away". pt also reports nausea/vomiting. Coronavirus screen: nausea, vomiting. Ebola Screen: Patient denies travel to an Ebola-affected area in the 21 days before illness onset. Initial Sepsis Screen: Does the patient meet any 2 criteria? HR > 90 bpm. Does the patient have a suspected source of infection? No. Patient's initial sepsis screen is negative. Risk Assessment: Do you want to hurt yourself or someone else? Patient reports no desire to harm self or others. Onset of symptoms was 2022. 13:39 Method Of Arrival: Ambulatory aa5 13:39 Acuity: MOSES 3 aa5 Historical: - Allergies: 13:39 NKA; aa5 - Home Meds: 13:39 Humulin 70/30 U-100 Insulin 100 unit/mL (70-30) Sub-Q crtg [Active]; aa5 - PMHx: 13:39 Chronic Pancreatitis; Diabetes - IDDM; aa5 - PSHx: 13:39 Cholecystectomy; I\\T\\D; stents x 2 in pancreas; aa5 - Immunization history:: Adult Immunizations unknown. - Social history:: Smoking status: Patient denies any tobacco usage or history of. Vital Signs: 13:39 BP 138 / 108; Pulse 102; Resp 18 S; Temp 98.0(TE); Pulse Ox 99% on R/A; Weight 92.99 kg aa5 (R); Height 5 ft. 9 in. (175.26 cm) (R); 13:39 Body Mass Index 30.27 (92.99 kg, 175.26 cm) aa5 ED Course: 13:36 Patient arrived in ED. am2 13:38 Marian[facility] Moyer FNP-C [facility]. kb 13:38 Belinda Jackson MD is Attending Physician. kb 13:39 Arm band placed on. aa5 13:40 Triage completed. aa5 13:58 Initial lab(s) drawn, by ny, sent to lab. Inserted saline lock: 20 gauge in right aa5 antecubital area, using aseptic technique. Blood collected. 17:00 IV discontinued, intact, bleeding controlled, No redness/swelling at site. Pressure 5 dressing applied. Administered Medications: 14:32 Drug: NS 0.9% 1000 ml Route: IV; Rate: 1 bolus; Site: right antecubital; 5 14:32 Drug: Pepcid (famotidine) 20 mg Route: IVP; Site: right antecubital; 5 14:32 Drug: TORadol - (ketorolac) 15 mg Route: IVP; Site: right antecubital; 5 14:32 Drug: morphine 4 mg Route: IVP; Infused Over: 4 mins; Site: right antecubital; [facility] 15:24 Drug: Potassium Chloride 20 mEq Route: PO; [facility] Outcome: 16:51 Discharge ordered by . catrachito 17:00 Discharged to home ambulatory. [facility] 17:00 Condition: good 17:00 Discharge instructions given to patient, Instructed on discharge instructions, follow up and referral plans. medication usage, safety practices, Demonstrated understanding of instructions, follow-up care, medications. 17:01 Patient left the ED. [facility] Signatures: Marianela Moyer, SULY MEDEIROS-Tamara Carlson, RN RN 5 Dorie Zapata Jessica RN RN 5
--- NOTE | 2022-09-15 16:51 | EDPHYS ---
Physician Documentation [facility] Name: Jimenez Patrick Age: 27 yrs Sex: Male : 1995 Arrival Date: 09/15/2022 Time: 13:36 Bed 11 Private MD: ED Physician Belinda Jackson HPI: 09/15 13:57 This 27 yrs old Male presents to ER via Ambulatory with complaints of kb Abdominal Pain. 13:55 Patient reports upper abdominal pain since Tuesday that is the same as his normal kb pancreatitis. Was admitted to [facility] on Tuesday and discharged yesterday but symptoms are still the same as when they started.. 13:57 The patient presents with abdominal pain in the upper abdomen. Onset: The kb symptoms/episode began/occurred 6 day(s) ago. The symptoms do not radiate. Associated signs and symptoms: Pertinent positives: nausea and vomiting. The symptoms are described as constant. Modifying factors: The symptoms are alleviated by nothing, the symptoms are aggravated by nothing. Severity of pain: At its worst the pain was moderate in the emergency department the pain is unchanged. The patient has experienced similar episodes in the past, chronically. The patient has been recently seen by a physician:. Historical: - Allergies: 13:39 NKA; aa5 - Home Meds: 13:39 Humulin 70/30 U-100 Insulin 100 unit/mL (70-30) Sub-Q crtg [Active]; aa5 - PMHx: 13:39 Chronic Pancreatitis; Diabetes - IDDM; aa5 - PSHx: 13:39 Cholecystectomy; I\T\D; stents x 2 in pancreas; aa5 - Immunization history:: Adult Immunizations unknown. - Social history:: Smoking status: Patient denies any tobacco usage or history of. ROS: 13:57 Constitutional: Negative for fever, chills, and weight loss. kb 13:57 Abdomen/GI: Positive for abdominal pain, nausea and vomiting, Negative for diarrhea, constipation. 13:57 All other systems are negative. Exam: 13:57 Constitutional: This is a well developed, well nourished patient who is awake, alert, kb and in no acute distress. Head/Face: Normocephalic, atraumatic. ENT: Moist Mucous membranes Cardiovascular: Regular rate and rhythm with a normal S1 and S2. No gallops, murmurs, or rubs. No pulse deficits. Respiratory: Respirations even and unlabored. No increased work of breathing. Talking in full sentences Skin: Warm, dry with normal turgor. Normal color. MS/ Extremity: Pulses equal, no cyanosis. Neurovascular intact. Full, normal range of motion. Neuro: Awake and alert, GCS 15, oriented to person, place, time, and situation. Moves all extremities. Normal gait. Psych: Awake, alert, with orientation to person, place and time. Behavior, mood, and affect are within normal limits. 13:57 Abdomen/GI: Inspection: abdomen appears normal, Bowel sounds: normal, Palpation: soft, in all quadrants, mild abdominal tenderness, in the right upper quadrant and left upper quadrant, moderate abdominal tenderness, in the epigastric area. Vital Signs: 13:39 BP 138 / 108; Pulse 102; Resp 18 S; Temp 98.0(TE); Pulse Ox 99% on R/A; Weight 92.99 kg aa5 (R); Height 5 ft. 9 in. (175.26 cm) (R); 13:39 Body Mass Index 30.27 (92.99 kg, 175.26 cm) aa5 MDM: 13:50 Patient medically screened. kb 13:57 Data reviewed: vital signs, nurses notes. kb 13:58 Differential diagnosis: gastritis, gastroesophageal reflux disease, pancreatitis, kb Peptic Ulcer Disease. 16:44 Consideration of Admission/Observation Escalation of care including kb admission/observation considered. I considered the following discharge prescriptions or medication management in the emergency department Antibiotics: At this time antibiotics are not recommended, Pain Medications: At this time, prescription pain medications are not recommended. Test considered but Not performed: Other Details CT abd/pelvis considered, but pain is chronic and symptoms have improved after treatment. . 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 09/15 13:50 Order name: CBC with Diff; Complete Time: 14:18 kb 09/15 13:50 Order name: CMP; Complete Time: 15:07 kb 01/11 13:50 Order name: Lipase; Complete Time: 15:07 kb 09/15 13:50 Order name: IV Saline Lock; Complete Time: 14:01 kb 09/15 13:50 Order name: Labs collected and sent; Complete Time: 14:01 kb 09/15 14:17 Order name: Labs - recollect needed: recollect green top; Complete Time: 14:32 bd 09/15 16:12 Order name: PO challenge; Complete Time: 16:40 kb Administered Medications: 14:32 Drug: NS 0.9% 1000 ml Route: IV; Rate: 1 bolus; Site: right antecubital; [facility] 14:32 Drug: Pepcid (famotidine) 20 mg Route: IVP; Site: right antecubital; 5 14:32 Drug: TORadol - (ketorolac) 15 mg Route: IVP; Site: right antecubital; 5 14:32 Drug: morphine 4 mg Route: IVP; Infused Over: 4 mins; Site: right antecubital; [facility] 15:24 Drug: Potassium Chloride 20 mEq Route: PO; 5 Disposition Summary: 09/15/22 16:51 Discharge Ordered Location: Home kb Condition: Stable kb Diagnosis - Other chronic pancreatitis kb Followup: kb - With: Emergency Department - When: As needed - Reason: Worsening of condition Followup: kb - With: Private Physician - When: 2 - 3 days - Reason: Recheck today's complaints, Continuance of care, Re-evaluation by your physician Discharge Instructions: - Discharge Summary Sheet kb - Chronic Pancreatitis kb Forms: - Medication Reconciliation Form kb - Thank You Letter kb - Antibiotic Education kb - Prescription Opioid Use kb Prescriptions: - ondansetron 4 mg Oral - take 4 milligrams by SUBLINGUAL route every 8 hours As needed; 15 tablet; Refills: 0, Product Selection Permitted Signatures: Dispatcher [employer] Marianela Bullock FNP-C FNP-Ckb Dirrim, Barbara bd Calderon, Audri, RN RN aa5 Cathy Mchugh RN RN jh5
[2022-09-15 17:16] VITALS: BP 138/108; TEMP 98; O2SAT 99
== END 2022-09-15 17:01 | disposition home or self-care (01) ==
LOC: ER 13:35
DX: K86.1 Other chronic pancreatitis (principal)
CPT/HCPCS: 36415; 80053; 83690; 85025; 96374; 96375; 99283

== ENCOUNTER 2023-04-22 21:24 | Emergency (ER) | payer SELFPAY ==
--- OUTSIDE RECORDS SUMMARY | 2023-04-22 21:27 | XMS REPORT | Continuity of Care Document ---
:1995 Author Organization [facility] t Address [address] [place] [address] [place] [id number] Care Team Providers Name Role Phone PCP, PATIENT DOES NOT HAVE A Primary Care Physician Lesvia Almanzar RN, Nabil Basurto Attending Clinician Unavailable LAZARO HUNTER Attending Clinician Unavailable Augustin Kincaid Attending Clinician Esa Ko DO Attending Clinician Lazaro Hunter MD Attending Clinician Syeda Alberts Attending Clinician SYEDA PERSAUD Attending Clinician Unavailable Doctor Unassigned, [place] Attending Clinician Unavailable LAZARO HUNTER Admitting Clinician [...] pancreatit pancreatit [place] Epigastric Epigastric Disease Active U nivers pain pain 1-07 ity of 00:00: [address] Branch Obesity Obesity Disease Active Univers (BMI (BMI 8-12 ity of 30-39.9) 30-39.9) 00:00: [address] Branch 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 U nivers adenitis adenitis 2-31 ity of 00:00: [place] 00 Medical Branch Pancreatit Pancreatit Disease Active 2009-09 U sue is is 2-31 ity of 00:00: [place] 00 Medical Branch Abdominal Abdominal Disease Active 2009-09 Uni vers pain pain 2-30 ity of 00:00: [place] 00 Medical Branch Other acne Other acne Disease Active U sue 8 ity of 00:00: [place] 00 Medical Branch Viral Viral Disease Active Overview: Univer s warts warts 04-13 Formattin ity of 00:00: g of this [place] 00 note Medical might be Branch different from the original. 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 Allergies, Adverse Reactions, Alerts Allergy Allergy Status Severity Reaction(s) Onset Inactive Treating Comm ents Source Name Type Date Date Clinician NO KNOWN Drug Active Univers ALLERGIE Class ity of S [place] [facility] Social History Social Habit Start Date Stop Date Quantity Comments Source History of tobacco Passive smoker Un iversity of use [place] [facility] History SDOH Social Unive rsity of [facility] Med ical Together Branch History SDOH Social Unive rsity of Connections [facility] History SDOH Social Unive rsity of miradio.fm [place] [facility] Membership Branch History SDOH Social Unive rsity of Connections [place] Medical Meetings Branch History SDOH 2022-09-13 2022-09-13 3 University o f Physical Activity 00:00:00 00:00:00 [place] M edical MPS Branch History SDOH 2022-09-13 2022-09-13 5 University o f Financial 00:00:00 00:00:00 [place] [facility] History SDOH Food 2022-09-13 2022-09-13 1 Univers ity of Worry 00:00:00 00:00:00 [place] [facility] History SDOH Food 2022-09-13 2022-09-13 1 Univers ity of Scarcity 00:00:00 00:00:00 [place] [facility] History SDOH 2022-09-13 2022-09-13 2 University o f Transport Med 00:00:00 00:00:00 [place] Medic al Branch History SDOH 2022-09-13 2022-09-13 2 University o f Transport Non-Med 00:00:00 00:00:00 [place] M edical Branch History SDOH 2022-09-13 2022-09-13 1 University o f Alcohol Frequency 00:00:00 00:00:00 [facility] edical Branch History SDOH 2022-09-13 2022-09-13 0 University o f Alcohol Std Drinks 00:00:00 00:00:00 [place] [facility] History SDOH 2022-09-13 2022-09-13 1 University o f Alcohol Binge 00:00:00 00:00:00 [place] Medic al Branch History SDOH Social 2022-09-13 2022-09-13 5 Unive rsity of Connections Phone 00:00:00 00:00:00 [facility] edical Branch History SDND Social 2022-09-13 2022-09-13 5 Unive rsity of Connections Living 00:00:00 00:00:00 [place] [facility] History SDOH 2022-09-13 2022-09-13 4 University o f Physical Activity 00:00:00 00:00:00 [facility] DPW Branch Tobacco use and 2022-09-12 2022-09-12 Smokeless Universit y of exposure 00:00:00 00:00:00 tobacco non-user [facility] dical Branch Alcohol intake 2022-09-12 2022-09-12 Ex-drinker [facility] 00:00:00 00:00:00 (finding) [facility] Exposure to 2022-09-01 2022-09-11 Not sure University SARS-CoV-2 (event) 00:00:00 13:58:00 [facility] Education 2022-09-11 2022-09-11 13 University 00:00:00 00:00:00 [facility] Sex [birth year] At [birth year] Universit y of 00:00:00 00:00:00 [facility] Smoking Status Start Date Stop Date Source Ex-smoker 2022-09-12 00:00:00 2022-09-12 00:00:00 Universi ty [facility] Unknown if ever smoked [facility] y [facility] Medications Ordered Filled Start Stop Current Ordering Indication Dosage Frequency Signature Comments Components Source Medication Medication Date Date Medication? Clinician (SIG) Name Name insulin NPH 2022- No 60U inject 60 Univers and regular 1-10 01-10 Units ity of human 70-30 12:13: 00:00 under the [place] (NOVOLIN 02 :00 skin 2 Medical 70/30 U-100 (two) Branch INSULIN) times 100 unit/mL daily (70-30) before injection breakfast and dinner. insulin NPH Yes [id number] 60U inject 60 Univers and regular 1-10 Units ity of human 70-30 00:00: [place] the [place] (NOVOLIN 00 skin 2 Medical 70/30 U-100 (two) Branch INSULIN) times 100 unit/mL daily (70-30) before injection breakfast and dinner. insulin NPH Yes [id number] 60U inject 60 Univers and regular 1-10 Units ity of human 70-30 00:00: [place] the [place] (NOVOLIN 00 skin 2 Medical 70/30 U-100 (two) Branch INSULIN) times 100 unit/mL daily (70-30) before injection breakfast and dinner. atorvastati 2022- No [id number] 40mg Take 1 Univers n 40 mg 1-10 02-10 tablet by ity of tablet 00:00: 05:59 mouth at [place] 00 :00 bedtime Medical for 30 Branch days. lisinopriL No [id number] 10mg Take 1 Univers 10 mg 1-10 02-10 tablet by ity of tablet 00:00: 05:59 mouth in [place] 00 :00 the Medical morning Branch and 1 tablet in the evening. Do all this for 30 days. atorvastati No [id number] 40mg Take 1 Univers n 40 mg 1-10 02-10 tablet by ity of tablet 00:00: 05:59 mouth at [place] 00 :00 bedtime Medical for 30 Branch days. lisinopriL No [id number] 10mg Take 1 Univers 10 mg 1-10 02-10 tablet by ity of tablet 00:00: 05:59 mouth in [place] 00 :00 the Medical morning Branch and 1 tablet in the evening. Do all this for 30 days. morpHINE (4 Yes 4mg 4 mg, Slow Univers mg/mL) 1-09 IV Push, ity of injection 4 09:53: Q4HPRN, Stu as mg 10 Starting Medical on Tue Branch 09/13/22 at 0353, Until Discontinu ed, Routine, Pain (scale 7-10) atorvastati 2022-0 Yes 40mg 40 mg, Univ ers n (LIPITOR) 1-09 Oral, QHS, it y of tablet 40 03:00: [place] mg 00 on Sun Medical 09/12/22 at Branch 2100, Until Discontinu ed, Routine lisinopriL 2023-0 Yes 10mg 10 mg, Unive rs (PRINIVIL,Z 09-12 Oral, BID, it y of ESTRIL) 14:45: [place] tablet 10 00 (after Medical mg last Branch modificati on) on 09/12/22 at 0845, Until Discontinu ed, Routine KCL 3-0 202- No 40meq 40 mEq, Univers (KLOR-CON 09-12 Oral, ity of M20) tablet 13:45: 14:15 [...] Administer over 60 Minutes, 100 mL lisinopriL 3-0 3- No 5mg 5 mg, Unive rs (PRINIVIL,Z 09-12 Oral, BID, i ty of ESTRIL) 05:00: 14:35 First dose Stu as tablet 5 mg 00 :46 on Sat Medica l 09/11/22 at Branch 2300, Until Discontinu ed, Routine lactated 2023-0 Yes 1000mL at 150 Unive rs ringers IV 1-08 mL/hr, ity of infusion 03:15: 1,000 mL, [place] 1,000 mL 00 IV Medical Infusion, Branch CONTINUOUS , Starting on 09/11/22 at 2115, Until Discontinu ed, Routine Sliding 2023-0 Yes Subcutaneo Univ ers Scale 1-07 us, TID ity of Insulin - 23:00: MEALS+HS, Stu as Lispro 00 First dose Medical (HumaLOG) + on Sat Branch Fsbg 09/11/22 at Testing 1700, Until Discontinu ed, Routine enoxaparin Yes 40mg 40 mg, Unive rs (LOVENOX) 09-11 Subcutaneo ity of injection 23:00: [place], DAILY, [place] 40 mg 00 First dose Medical on Sat Branch 09/11/22 at 1700, Until Discontinu ed, Routine lactated 2022- No 1000mL at 125 Univ ers ringers IV 09-1108 mL/hr, ity of infusion 19:15: 03:05 1,000 mL, Stu as 1,000 mL 00 :27 IV Medical Infusion, Branch CONTINUOUS , Starting on 09/11/22 at 1315, Until 09/11/22 at 2105, Routine lactated 2022- No 1000mL at 999 Univ ers ringers [...] swallow or has mental status changes. ondansetron 0 Yes 4mg 4 mg, Slow Univers (ZOFRAN 09-11 IV Push, ity of (PF)) 18:04: Q6HPRN, [place] injection 4 03 Starting Medi meenu mg on Sat Branch 09/11/22 at 1204, Until Discontinu ed, Routine, Nausea and Vomiting (N/V) morpHINE (2 2022-0 2022- No 2mg 2 mg, Slow Univers mg/mL) 09-11 IV Push, ity of injection 2 18:03: 18:02 Q4HPRN, [place] mg 52 :52 Starting Medical on Sat Branch 09/11/22 at 1203, Until 09/12/22 at 1202, Routine, Pain (scale 7-10) HYDROcodone 2022-0 2022- No 1{tbl} 1 tablet, Univers -acetaminop 09-11 Oral, ity of hen (NORCO 18:03: 18:02 Q6HPRN, Stu as 5) 5-325 mg 48 :48 Starting Medi meenu tablet 1 on [facility] Branch tablet 09/11/22 at 1203, Until 09/13/22 at 1202, Routine, Pain (scale 4-6) acetaminoph 2022-0 Yes 650mg 650 mg, Un brendan en 09-11 Oral, ity of (TYLENOL) 18:03: Q6HPRN, [place] tablet 650 39 Starting Medic al mg on Sat Branch 09/11/22 at 1203, Until Discontinu ed, Routine, Pain (scale 1-3) insulin NPH 2022- No 60U 60 Units, Univers and regular 09-11 Subcutaneo i ty of human 70-30 18:03: 18:54 us, ONCE, [place] (70-30 00 :00 1 dose, On Medical U-100 09/11/22 Branch INSULIN) at 1215, 100 unit/mL MARITA (70-30) injection 60 Units FENTanyl PF 2022- No 50ug 50 mcg, Un brendan (SUBLIMAZE 09-11 Slow IV ity o f (PF)) 16:38: 16:41 Push, [place] injection 00 :00 ONCE, 1 Medical 50 mcg dose, On Branch 09/11/22 at 1045, MARITA iopamidol 2022- No [id number] 78mL 78 mL, U nivers (ISOVUE 09-11 Intravenou ity o f 370-500 mL) 16:35: 16:45 s, ONCE, 1 [place] injection 00 :00 dose, On Medica l 78 mL 09/11/22 Branch at 1045, Routine ondansetron 2022- No [id number] 4mg 4 mg, Slow Univers (ZOFRAN 09-11 IV Push, ity of (PF)) 15:45: 15:50 ONCE, 1 [place] injection 4 00 :00 dose, On Medi meenu mg 09/11/22 Branch at 0945, MARITA famotidine 2022- No [id number] 20mg 20 mg, Univers (PEPCID 09-11 Slow IV ity of (PF)) 15:45: 15:50 Push, [place] injection 00 :00 ONCE, 1 Medical 20 mg dose, On Branch 09/11/22 at 0945, MARITA NaCl 0.9% 2022- No [id number] 1000mL at 999 Univers (NS) IV 09-11 mL/hr, ity of infusion 15:33: 17:00 Intravenou [place] 1,000 mL 00 :00 s, ONCE, 1 Medic al dose, On Branch 09/11/22 at 0945, MARITA sodium Yes [id number] 5mL 5 mL, Univer s chloride 1-07 Intravenou ity o f (NS) 15:32: s, PRN, [place] injection 5 59 Starting Medi meenu mL on Sat Branch 09/11/22 at 0932, Until Discontinu ed, Routine, IV line flushing maalox:diph 2020- No 15mL 15 mL, Uni vers enhydrAMINE 11-08- Oral, ity of :lidocaine 20:45: 20:39 ONCE, 1 Stu as 2 % viscous 00 :00 dose, Sat Med ical 1:1:1 11/08/20 at [place] (FIRST-MOUT 1445, MARITA HWASH BLM) oral suspension 15 mL insulin 2020- No 9U 9 Units[facility] regular 11-08 Slow IV ity of human 20:30: 19:39 Push, [place] (HUMULIN R) 00 :00 ONCE, 1 Medic [...] 4 mg, Slow Un brendan injection 4 11-0806 IV Push, ity of mg 19:45: 18:49 ONCE, 1 [place] 00 :00 dose, Sat Medical 11/08/20 at Branch 1345, STAT NaCl 0.9% 2020- No 1000mL at 999 Uni vers (NS) bolus 3 03-06 mL/hr, ity of infusion 19:30: 20:37 1,000 mL, Stu as 1,000 mL 00 :00 IV Medical Infusion, [place] ONCE, 1 dose, 11/08/20 at 1330, MARITA NaCl 0.9% 2020- No 1000mL at 999 Uni vers (NS) bolus 3-06 03-06 mL/hr, ity of infusion 18:30: 19:39 1,000 mL, Stu as 1,000 mL 00 :00 IV Medical Infusion, Branch ONCE, 1 dose, 11/08/20 at 1230, MARITA ondansetron Yes [id number] 4mg Take 1 Univers (ZOFRAN 3-06 tablet by ity of ODT) 4 mg 00:00: mouth [place] disintegrat 00 every 8 Medic al ing tablet (eight) Branch hours as needed for Nausea and Vomiting (N/V). dicyclomine Yes [id number] 20mg Take 1 Univers 20 mg 3-06 tablet by ity of tablet 00:00: mouth 4 [place] 00 (four) Medical times Branch daily as needed for Abdominal pain. ondansetron 2022- No [id number] 4mg Take 1 Univers (ZOFRAN 3-06 01-07 tablet by ity of ODT) 4 mg 00:00: 00:00 mouth [place] disintegrat 00 :00 every 8 Medic al ing tablet (eight) Branch hours as needed for Nausea and Vomiting (N/V). dicyclomine 2022- No [id number] 20mg Take 1 Univers 20 mg 3-06 -07 tablet by ity of tablet 00:00: 00:00 mouth 4 [place] 00 :00 (four) Medical times [place] daily as needed for Abdominal pain. No known No Univers medications [facility] Vital Signs Vital Name Observation Time Observation Value Comments Source Systolic blood 2022-09-14 17:21:00 130 mm[Hg] Univer [facility] Diastolic blood 2022-09-14 17:21:00 93 mm[facility]Hg[facility] rate 2022-09-14 17:21:00 87 /min [facility] Body temperature 2022-09-14 17:21:00 35.56 Zenaida [facility] Respiratory rate 2022-09-14 17:21:00 18 /min [facility] Oxygen saturation in 2022-09-14 17:21:00 98 /min [facility] Arterial blood by [facility] Pulse oximetry [place] Body weight 2022-09-14 09:02:00 98.476 kg [facility] BMI 2022-09-14 09:02:00 32.06 kg/m2 [facility] Body height 2022-09-11 19:14:00 175.3 cm [facility] Systolic blood 2020-11-08 21:00:00 136 mm[Hg] Univer sity of pressure [facility] Diastolic blood 2020-11-08 21:00:00 95 mm[Hg] Unive rsity of [facility] Heart rate 2020-11-08 21:00:00 93 /min [facility] Respiratory rate 2020-11-08 21:00:00 16 /min [facility] Oxygen saturation in 2020-11-08 21:00:00 98 /min [facility] Arterial blood by [facility] Pulse oximetry [place] Body temperature 2020-11-08 18:12:00 36.44 Zenaida [facility] Body height 2020-11-08 18:12:00 175.3 cm [facility] Body weight 2020-11-08 18:12:00 92.987 kg [facility] BMI 2020-11-08 18:12:00 30.27 kg/m2 [facility] Procedures Procedure Date / Time Performing Clinician Source Performed POCT GLUCOSE 2022-09-14 17:22:00 Elsa [facility] (AUTOMATED) [facility] LIPASE 2022-09-14 11:57:00 [facility] BASIC METABOLIC PANEL 2022-09-14 11:57:00 [facility] (NA, K, CL, CO2, Medical Branch GLUCOSE, BUN, CREATININE, CA) LIPID PANEL 2022-09-14 11:57:00 neela [facility] ([id number])(TOTAL [facility] CHOLESTEROL, TRIGLYCERIDES, HDL) CBC WITH DIFF 2022-09-14 11:57:00 neela [facility] POCT GLUCOSE 2022-09-14 02:35:00 Elsa [facility] (AUTOMATED) Medical [place] POCT GLUCOSE 2022-09-13 22:59:00 Elsa [facility] (AUTOMATED) [facility] POCT GLUCOSE 2022-09-13 17:43:00 Elsa [facility] (AUTOMATED) Medical Branch POCT GLUCOSE 2022-09-13 13:30:00 [facility] (AUTOMATED) Medical Branch BASIC METABOLIC PANEL 2022-09-13 09:26:00 Emy Hyde [facility] (NA, K, CL, CO2, Medical Branch GLUCOSE, BUN, CREATININE, CA) POCT GLUCOSE 2022-09-12 22:34:00 Elsa [facility] (AUTOMATED) Medical Branch POCT GLUCOSE 2022-09-12 17:15:00 Elsa [facility] (AUTOMATED) Medical Branch POCT GLUCOSE 2022-09-12 13:44:00 [facility] (AUTOMATED) Medical Branch MAGNESIUM 2022-09-12 09:07:00 [facility] [place] [facility] HEPATIC FUNCTION PANEL 2022-09-12 09:07:00 [id number] (ALB,T.PRO,BILI Medical Branch T,BU/BC,ALT,AST,ALK PHOS) BASIC METABOLIC PANEL 2022-09-12 09:07:00 Emy Hyde [facility] (NA, K, CL, CO2, Medical Branch GLUCOSE, BUN, CREATININE, CA) LIPID PANEL 2022-09-12 09:07:00 [facility] ([id number])(TOTAL Medical Branch CHOLESTEROL, TRIGLYCERIDES, HDL) CBC WITH DIFF 2022-09-12 09:07:00 Emy Hyde [facility] Medical Branch POCT GLUCOSE 2022-09-12 09:01:00 Esa Ko [facility] (AUTOMATED) Medical Branch POCT GLUCOSE 2022-09-12 02:38:00 Esa Ko [facility] (AUTOMATED) Medical Branch POCT GLUCOSE 2022-09-11 22:42:00 Esa Ko [facility] (AUTOMATED) Medical Branch POCT GLUCOSE 2022-09-11 18:57:00 Mateus [facility] (AUTOMATED) Medical Branch POCT GLUCOSE(AGE 2022-09-11 17:22:[address] [facility] >30DAYS) Medical Branch POCT GLUCOSE 2022-09-11 17:21:00 Mateus [facility] (AUTOMATED) Medical Branch CT ABDOMEN PELVIS W 2022-09-11 16:38:00 Augustin Ignacio [facility] CONTRAST Medical Branch POCT GLUCOSE 2022-09-11 15:59:00 Mateus [facility] (AUTOMATED) Medical Branch LIPASE 2022-09-11 15:48:00 Mateus [facility] COMP. METABOLIC PANEL 2022-09-11 15:48:00 Mateus [facility] ([id number]) Medical Branch CBC WITH DIFF 2022-09-11 15:48:00 Mateus [facility] GLYCOSYLATED HEMOGLOBIN 2022-09-11 15:48:00 Esa Ko [facility] (A1C) [facility] Branch URINALYSIS 2022-09-11 15:46:00 Mateus [facility] CONSENT/REFUSAL FOR 2022-09-11 15:16:37 Doctor Unassigned, No [facility] DIAGNOSIS AND TREATMENT Name Medical Branch POCT GLUCOSE 2020-11-08 20:26:00 [facility] (AUTOMATED) Medical Branch LIPASE 2020-11-08 18:29:00 [facility] HEPATIC FUNCTION PANEL 2020-11-08 18:29:00 [facility] ([id number]) (ALB,T.PRO,BILI Medical Branch T,BU/BC,ALT,AST,ALK PHOS) BASIC METABOLIC PANEL 2020-11-08 18:29:00 [facility] (NA, K, CL, CO2, Medical Branch GLUCOSE, BUN, CREATININE, CA) CBC WITH DIFF 2020-11-08 18:29:00 [facility] URINALYSIS 2020-11-08 18:29:00 [facility] NOTICE OF PRIVACY 2020-11-08 18:06:16 Doctor Unassigned, No [facility] PRACTICES Name Medical Branch CONSENT/REFUSAL FOR 2020-11-08 18:06:04 [facility] Name Medical Branch Encounters Start End Encounter Admission Attending Care Care Encounter Source Date/Time Date/Time Type Type Clinicians Facility Department ID 2021-09-30 [facility] [id number] Common 12:34:38 [id number] [facility] 2022-09-15 2022-09-15 Transition LOR Almanzar [id number] Univers 00:00:00 00:00:00 of Care Nabil COUCHY [id number] ity of [place] [id number] [facility] 403 Branch 2022-09-11 2022-09-14 Inpatient X ELSA [facility] [id number] Univers 09:26:00 13:00:00 LAZARO ity [facility] 2022-09-11 2022-09-14 [facility] LibiabrittanyAugustin [facility] [id number] Univers 09:26:00 13:00:00 Encounter Esa Ko 350.1.13.10 ity of Lazaro Hunter 4.2.7.2.686 [facility] [id number] [facility] 081 Branch 2020-11-08 2020-11-08 Emergency [facility] [id number] Univers 12:16:00 15:38:00 Syedagregg Laurent 350.1.13.10 i ty of [place] 4[place]2.7.2.686 [place] [id number] [facility] 084 Branch 2020-11-08 2020-11-08 Emergency X [facility] ERT [id number] Univers 12:06:00 12:06:00 SYEDA ity [facility] 2020-11-08 2020-11-08 Orders Doctor CARLOS [id number] Univers 00:00:00 00:00:00 Only Unassigned, JOSE 350.1.13.10 ity of [place] [facility] 4.2.7.2.686 Stu as [id number] [facility] 009 Branch Results Test Description Test Time Test Comments Results Result Comments Source POCT GLUCOSE (AUTOMATED) 2022-09-14 18:35:20 Test Item Value Reference Range Interpretation Comme nts POCT GLU (test code = 1318158949) 283 mg/dL 70-110 H Lab Interpretation (test code = 83850-7) Abnormal [facility] GLUCOSE (AUTOMATED)2022-09-14 02:40:24 Test Item Value Reference Range Interpretation Comments POCT GLU (test code = 8386442075) 191 mg/dL 70-110 H Lab Interpretation (test code = Abnormal 84672-0) [facility] GLUCOSE (AUTOMATED)2022-09-13 23:13:20 Test Item Value Reference Range Interpretation Comments POCT GLU (test code = 6285129311) 126 mg/dL 70-110 H Lab Interpretation (test code = Abnormal 19420-3) [facility] GLUCOSE (AUTOMATED)2022-09-13 17:51:10 Test Item Value Reference Range Interpretation Comments POCT GLU (test code = 5454163835) 270 mg/dL 70-110 H Lab Interpretation (test code = Abnormal 91516-2) [facility] GLUCOSE (AUTOMATED)2022-09-13 14:08:01 Test Item Value Reference Range Interpretation Comments POCT GLU (test code = 5523921053) 177 mg/dL 70-110 H Lab Interpretation (test code = Abnormal 68852-3) [facility] GLUCOSE (AUTOMATED)2022-09-12 22:53:55 Test Item Value Reference Range Interpretation Comments POCT GLU (test code = 3830524670) 207 mg/dL 70-110 H Lab Interpretation (test code = Abnormal 55925-8) [facility] GLUCOSE (AUTOMATED)2022-09-12 18:09:02 Test Item Value Reference Range Interpretation Comments POCT GLU (test code = 5173375678) 92 mg/dL 70-110 Lab Interpretation (test code = Normal 88863-5) [id number])(TOTAL CHOLESTEROL, TRIGLYCERIDES, HDL)2022-09-12 14:58:08 Test Item Value Reference Range Interpretation Comments CHOL (test code = 138 mg/dL 120-200 1430572825) HDL (test code = 23 mg/dL See_Comment L [Automated message] 1672045931) The system [employer] generated this result transmit patricio reference range : >=40. The refer ence range was not u sed to interpret th is result as normal/abnormal . HDLC RATIO (test code = See_Comment H [Au tomated message] 6297605568) The system [employer] generated this result transmit patricio reference range : <=5.0. The refe rence range was not u sed to interpret th is result as normal/abnormal . TRIG (test code = 171 mg/dL 30-170 H 8560838295) LDL CHOL (test code = 81 mg/dL See_Comment [Auto mated message] 36201-4) The system [employer] generated this result transmit patricio reference range : <=160. The refe rence range was not u sed to interpret th is result as normal/abnormal . VLDL (test code = 34 mg/dL 5-60 2048617140) Lab Interpretation (test Abnormal code = 56816-8) [facility]2022-09-12 13:54:38 Test Item Value Reference Range Interpretation Comments POCT GLU (test code = 0782853262) 84 mg/dL 70-110 Lab Interpretation (test code = Normal 26907-2) [facility] (27413) (ALB,T.PRO,BILI T,BU/BC,ALT,AST,ALK PHOS)2022-09-12 13:03:03 Test Item Value Reference Range Interpretation Comments TOTAL BILI (test code = 9758930998) 1.0 mg/dL 0.1-1.1 BILI UNCON (test code = 0146194377) 0.8 mg/dL 0.1-1.1 BILI CONJ (test code = 6441580472) 0.0 mg/dL 0.0-0.3 T PROTEIN (test code = 7366651610) 6.7 g/dL 6.3-8.2 ALBUMIN (test code = 9329369669) 4.0 g/dL 3.5-5.0 ALK PHOS (test code = 7437509096) 106 U/L 34-122 ALTv (test code = 1742-6) 146 U/L 5-50 H AST(SGOT) (test code = 8585702086) 81 U/L 13-40 H Lab Interpretation (test code = Abnormal 93148-5) [facility] 13:02:43 Test Item Value Reference Range Interpretation Comments MAGNESIUM (test code = 9874022490) 1.8 mg/dL 1.7-2.4 Lab Interpretation (test code = Normal 26340-1) [facility] (NA, K, CL, CO2, GLUCOSE, BUN, CREATININE, [place])2022-09-12 12:10:26 Test Item Value Reference Range Interpretation Comments NA (test code = 142 mmol/L 135-145 7136876507) K (test code = 3.1 mmol/L 3.5-5.0 L 0606622732) CL (test code = 106 mmol/L 98-108 6931189951) CO2 TOTAL (test code = 24 mmol/L 23-31 5594442481) AGAP (test code = 2-16 0396984268) BUN (test code = 8 mg/dL 7-23 8775314641) GLUCOSE (test code = 73 mg/dL 70-110 4417679030) CREATININE (test code = 0.72 mg/dL 0.60-1.25 8644428757) CALCIUM (test code = 8.1 mg/dL 8.6-10.6 L 7131244018) eGFR (test code = mL/min/1.73m2 1418790563) RAFAEL (test code = RAFAEL) Association of [...] tests). Lab Interpretation Abnormal (test code = 84117-2) [facility] WITH [id number] 11:46:12 Test Item Value Reference Range Interpretation Comments WBC (test code = See_Comment [Automated 6690-2) message] The sy stem which generated this result transmitted reference range : 4.20 - 10.70 10*3/?L. The reference range was not used to interpret this result as normal/abnormal . RBC (test code = See_Comment [Automated 789-8) message] The sy stem which [...] (test code = 36.0 fL 38.5-51.6 L 70029-9) RDW-CV (test code = 11.9 % 12.1-15.4 L 788-0) PLT (test code = See_Comment [Automated 777-3) message] The sy stem which generated this result transmitted reference range : 150 - 328 10*3/ ?L. The reference r teresita was not used to interpret this result as normal/abnormal . MPV (test code = 10.7 fL 9.8-13.0 38695-9) NRBC/100 WBC (test See_Comment [Automat ed code = 0043757268) message] The system which generated this result transmitted reference range : 0.0 - 10.0 /100 WBCs. The refer ence range was not u sed to interpret th is result as normal/abnormal . NRBC x10^3 (test code See_Comment [Auto mated = 8292903972) message] The s ystem which generated this result transmitted reference range : 10*3/?L. The reference range was not used to interpret this result as normal/abnormal . GRAN MAT (NEUT) % 50.2 % (test code = 770-8) IMM GRAN % (test code 0.40 % = 9349298119) LYMPH % (test code = 37.0 % 736-9) MONO % (test code = 8.3 % 5905-5) EOS % (test code = 3.6 % 713-8) BASO % (test code = 0.5 % 706-2) GRAN MAT x10^3(ANC) 4.81 10*3/uL 1.99-6.95 (test code = 0632669311) IMM GRAN x10^3 (test 0.04 10*3/uL 0.00-0.06 code = 4870946847) LYMPH x10^3 (test code 3.56 10*3/uL 1.09-3.23 H = 731-0) MONO x10^3 (test code 0.80 10*3/uL 0.36-1.02 = 742-7) EOS x10^3 (test code = 0.35 10*3/uL 0.06-0.53 711-2) BASO x10^3 (test code 0.05 10*3/uL 0.01-0.09 = 704-7) Lab Interpretation Abnormal (test code = 95300-8) [facility] GLUCOSE (AUTOMATED)2022-09-12 11:19:34 Test Item Value Reference Range Interpretation Comments POCT GLU (test code = 8439087861) 70 mg/dL 70-110 Lab Interpretation (test code = Normal 01031-6) [facility] GLUCOSE (AUTOMATED)2022-09-12 02:46:59 Test Item Value Reference Range Interpretation Comments POCT GLU (test code = 5538292846) 90 mg/dL 70-110 Lab Interpretation (test code = Normal 12290-7) [facility] GLUCOSE (AUTOMATED)2022-09-11 23:13:35 Test Item Value Reference Range Interpretation Comments POCT GLU (test code = 9555735594) 120 mg/dL 70-110 H Lab Interpretation (test code = Abnormal 35462-1) [facility]-11 20:41:39 Test Item Value Reference Range Interpretation Comments HGB A1C (test code = 10.1 % 4.0-5.7 H 4548-4) RAFAEL (test code = RAFAEL) Reference RangesNormal: <5.7%Prediabetes: 5.7 - 6.4%Diabetes: > 6.5% Lab Interpretation (test Abnormal code = 89938-1) [facility] GLUCOSE (AUTOMATED)2022-09-11 19:01:23 Test Item Value Reference Range Interpretation Comments POCT GLU (test code = 4426943896) 302 mg/dL 70-110 H Lab Interpretation (test code = Abnormal 04108-1) [facility] GLUCOSE (AUTOMATED)2022-09-11 19:01:23 Test Item Value Reference Range Interpretation Comments POCT GLU (test code = 2258085110) 277 mg/dL 70-110 H Lab Interpretation (test code = Abnormal 32076-6) [facility] GLUCOSE (AUTOMATED)2022-09-11 19:01:23 Test Item Value Reference Range Interpretation Comments POCT GLU (test code = 8635894452) 283 mg/dL 70-110 H Lab Interpretation (test code = Abnormal 79866-0) [facility] GLUCOSE(AGE >30DAYS)2022-09-11 17:22:00 Test Item Value Reference Range Interpretation Comments POCT Glu (age>30days) (test code = 277 mg/dL 70-110 A 3342) Lab Interpretation (test code = Abnormal 77911-5) [facility] Metabolic [id number] 16:11:48 Test Item Value Reference Range Interpretation Comments NA (test code = 137 mmol/L 135-145 6373344057) K (test code = 4.5 mmol/L 3.5-5.0 8050506135) CL (test code = 102 mmol/L 98-108 5806911009) CO2 TOTAL (test code = 22 mmol/L 23-31 L 0105135207) AGAP (test code = 2-16 0986190586) BUN (test code = 15 mg/dL 7-23 1437845604) GLUCOSE (test code = 318 mg/dL 70-110 H 1774341933) CREATININE (test code = 0.76 mg/dL 0.60-1.25 8220369030) TOTAL BILI (test code = 1.5 mg/dL 0.1-1.1 H 8178555170) CALCIUM (test code = 9.1 mg/dL 8.6-10.6 2313398022) T PROTEIN (test code = 7.7 g/dL 6.3-8.2 6708094983) ALBUMIN (test code = 5.0 g/dL 3.5-5.0 8317677331) ALK PHOS (test code = 124 U/L 34-122 H 4998781109) ALTv (test code = 173 U/L 5-50 H 1742-6) AST(SGOT) (test code = 76 U/L 13-40 H 5542802161) eGFR (test code = mL/min/1.73m2 4286135220) RAFAEL (test code = RAFAEL) Association of [...] tests). Lab Interpretation Abnormal (test code = 66221-8) [facility] Center[facility], [id number] 16:11:22 Test Item Value Reference Range Interpretation Comments LIPASE (test code = 1739397151) 22 U/L 0-220 Lab Interpretation (test code = Normal 19908-0) [facility] CenterCBC with [id number] 15:57:05 Test Item Value Reference Range Interpretation Comments WBC (test code = See_Comment H [Automated 6790-2) message] The sy stem which generated this result transmitted reference range : 4.20 - 10.70 10*3/?L. The reference range was not used to interpret this result as normal/abnormal . RBC (test code = See_Comment [Automated 589-8) message] The sy stem which generated this [...] (test code = 35.5 fL 38.5-51.6 L 73338-6) RDW-CV (test code = 11.8 % 12.1-15.4 L 788-0) PLT (test code = See_Comment [Automated 777-3) message] The sy stem which generated this result transmitted reference range : 150 - 328 10*3/ ?L. The reference r teresita was not used to interpret this result as normal/abnormal . MPV (test code = 10.3 fL 9.8-13.0 81138-8) NRBC/100 WBC (test See_Comment [Automat ed code = 4274434326) message] The system which generated this result transmitted reference range : 0.0 - 10.0 /100 WBCs. The refer ence range was not u sed to interpret th is result as normal/abnormal . NRBC x10^3 (test code See_Comment [Auto mated = 9188303487) message] The s ystem which generated this result transmitted reference range : 10*3/?L. The reference range was not used to interpret this result as normal/abnormal . GRAN MAT (NEUT) % 64.6 % (test code = 770-8) IMM GRAN % (test code 0.50 % = 9081346140) LYMPH % (test code = 25.3 % 736-9) MONO % (test code = 7.3 % 5905-5) EOS % (test code = 1.9 % 713-8) BASO % (test code = 0.4 % 706-2) GRAN MAT x10^3(ANC) 7.62 10*3/uL 1.99-6.95 H (test code = 0740579683) IMM GRAN x10^3 (test 0.06 10*3/uL 0.00-0.06 code = 5061415930) LYMPH x10^3 (test code 2.98 10*3/uL 1.09-3.23 = 731-0) MONO x10^3 (test code 0.86 10*3/uL 0.36-1.02 = 742-7) EOS x10^3 (test code = 0.22 10*3/uL 0.06-0.53 711-2) BASO x10^3 (test code 0.05 10*3/uL 0.01-0.09 = 704-7) Lab Interpretation Abnormal (test code = 75223-0) [facility] GLUCOSE (AUTOMATED)2020-11-08 20:30:00 Test Item Value Reference Range Interpretation Comments POCT GLU (test code = 8530934559) 181 mg/dL 70-110 H Lab Interpretation (test code = Abnormal 24038-9) [facility] (NA, K, CL, CO2, GLUCOSE, BUN, CREATININE, CA)2020-11-08 18:48:00 Test Item Value Reference Range Interpretation Comments NA (test code = 134 mmol/L 135-145 L 0955303940) K (test code = 4.0 mmol/L 3.5-5 0742788274) CL (test code = 96 mmol/L 98-108 L 9564543290) CO2 TOTAL (test code = 29 mmol/L 23-31 6761939453) AGAP (test code = 2-16 5922628681) BUN (test code = 10 mg/dL 7-23 1711335163) GLUCOSE (test code = 368 mg/dL 70-110 H 8801216269) CREATININE (test code = 0.58 mg/dL 0.6-1.25 L 6273568108) CALCIUM (test code = 9.1 mg/dL 8.6-10.6 3815287988) eGFR Calculation mL/min/1.73m2 (Non-) (test code = 7794286380) eGFR Calculation mL/min/1.73m2 () (test code = 1375816075) RAFAEL (test code = ARFAEL) Association of Glomerular Filtration Rate (GFR) and [...] tests). Lab Interpretation Abnormal (test code = 86371-3) [facility] Center[facility] Function Panel (ALB, T.PRO, BILI T, BU/BC, ALT, AST, ALK PHOS)2020-11-08 18:48:00 Test Item Value Reference Range Interpretation Comments TOTAL BILI (test code = 2117142392) 0.8 mg/dL 0.1-1.1 BILI UNCON (test code = 8967817761) 0.8 mg/dL 0.1-1.1 BILI CONJ (test code = 3192464459) 0.0 mg/dL 0-0.3 T PROTEIN (test code = 4029191082) 7.8 g/dL 6.3-8.2 ALBUMIN (test code = 4447573014) 4.7 g/dL 3.5-5 ALK PHOS (test code = 9080280210) 147 U/L 34-122 H ALTv (test code = 1742-6) 48 U/L 5-50 AST(SGOT) (test code = 1517148549) 42 U/L 13-40 H Lab Interpretation (test code = Abnormal 28704-2) [facility] CenterLipase [id number] 18:48:00 Test Item Value Reference Range Interpretation Comments LIPASE (test code = 8284243831) 27 U/L 0-220 Lab Interpretation (test code = Normal 37861-4) [facility] CenterUrinalysis2021-03-06 18:39:00 Test Item Value Reference Range Interpretation Comments APPEARANCE (test code = Clear Clear 9080245839) COLOR (test code = Yellow Yellow 7227075036) PH (test code = 4.8-8.0 3027451499) SP GRAVITY (test code = 1.003-1.030 H 3003142410) GLU U QUAL (test code = 500 mg/dL Normal A 6648729569) BLOOD (test code = Negative Negative 5618305499) KETONES (test code = 5 mg/dL Negative A 8462092180) PROTEIN (test code = Negative Negative 2887-8) UROBILIN (test code = Normal Normal 3599085591) BILIRUBIN (test code = Negative Negative 8820942579) NITRITE (test code = Negative Negative 6130359999) LEUK ALYSHA (test code = Negative Negative 2685326752) RBC/HPF (test code = See_Comment [Autom ated message] 1058196255) The system [employer] generated this result transmit patricio reference range : 0 - 3 HPF. The refe rence range was not u sed to interpret th is result as normal/abnormal . WBC/HPF (test code = See_Comment [Autom ated message] 0500474548) The system [employer] generated this result transmit patricio reference range : 0 - 5 HPF. The refe rence range was not u sed to interpret th is result as normal/abnormal . BACTERIA (test code = Negative Negative 5917065657) Lab Interpretation (test Abnormal code = 74225-6) [facility] with [id number] 18:36:00 Test Item Value Reference Range Interpretation [...] (test code = 33.7 fL 38.5-51.6 L 45248-9) RDW-CV (test code = 11.5 % 12.1-15.4 L 788-0) PLT (test code = See_Comment H [Automated 777-3) message] The sy stem which generated this result transmitted reference range : 150 - 328 10*3/ ?L. The reference r teresita was not used to interpret this result as normal/abnormal . MPV (test code = 10.2 fL 9.8-13 44266-1) NRBC/100 WBC (test See_Comment [Automat ed code = 7701573907) message] The system which generated this result transmitted reference range : 0.0 - 10.0 /100 WBCs. The refer ence range was not u sed to interpret th is result as normal/abnormal . NRBC x10^3 (test code <0.01 See_Comment [Auto mated = 8263640886) message] The s ystem which generated this result transmitted reference range : 10*3/?L. The reference range was not used to interpret this result as normal/abnormal . GRAN MAT (NEUT) % 60.3 % (test code = 770-8) IMM GRAN % (test code 0.70 % = 6822627420) LYMPH % (test code = 29.2 % 736-9) MONO % (test code = 4.7 % 5905-5) EOS % (test code = 3.9 % 713-8) BASO % (test code = 1.2 % 706-2) GRAN MAT x10^3(ANC) 6.44 10*3/uL 1.99-6.95 (test code = 4543233701) IMM GRAN x10^3 (test 0.07 10*3/uL 0-0.06 H code = 8400917448) LYMPH x10^3 (test code 3.12 10*3/uL 1.09-3.23 = 731-0) MONO x10^3 (test code 0.50 10*3/uL 0.36-1.02 = 742-7) EOS x10^3 (test code = 0.42 10*3/uL 0.06-0.53 711-2) BASO x10^3 (test code 0.13 10*3/uL 0.01-0.09 H = 704-7) Lab Interpretation Abnormal (test code = 69318-1) [facility]"
[2023-04-22 22:35] LABS: Absolute Lymphocytes (CBC) 2.8 K/uL (0.7-4.9); Hematocrit 47.7 % (39.6-49.0); MCV 85.6 fL (80-100); MPV 9.1 fL (7.6-11.3); Platelets 294 thou/uL (152-406); RBC Red Blood Cell Count 5.57 M/uL (4.33-5.43)
[2023-04-22 22:59] LABS: Albumin 3.9 g/dL (3.4-5.0); Bilirubin Total 0.9 mg/dL (0.2-1.0); Potassium 4.2 mEq/L (3.5-5.1); Protein, Total 7.7 g/dL (6.4-8.2)
[2023-04-22] MEDS ORDERED: ONDANSETRON 4 MG/2 ML VIAL ONE (23:05)
[2023-04-22] MEDS ORDERED: NA CHLORIDE 0.9% 1,000 ML ONE (23:05)
[2023-04-22] MEDS ORDERED: MORPHINE 4 MG/ML SYR ONE (23:05)
[2023-04-23] MEDS ORDERED: INSULIN -REGULAR HUMAN 50 UNIT/0.5 ML ML ONE (00:31)
[2023-04-23] MEDS ORDERED: MORPHINE 4 MG/ML SYR ONE (00:45)
[2023-04-23] MEDS ORDERED: ONDANSETRON 4 MG/2 ML VIAL ONE (00:45)
[2023-04-23] MEDS ORDERED: NA CHLORIDE 0.9% 1,000 ML ONE (01:02)
--- NOTE | 2023-04-23 01:04 | ER ---
Nurse's Notes [facility] Name: Jimenez Patrick Age: 27 yrs Sex: Male : 1995 Arrival Date: 04/22/2023 Time: 21:24 Bed 19 Private MD: Diagnosis: Other chronic pancreatitis;Diabetes mellitus due to underlying condition with hyperglycemia Presentation: 04/22 21:38 Chief complaint: Patient states: epigastric pain that radiates to his right back. Pt cm10 states that he feels like he has pancreatitis again. No nausea or vomiting. Coronavirus screen: Vaccine status: Patient reports being unvaccinated. Client denies travel out of the [place] in the last 14 days. Ebola Screen: Patient denies travel to an Ebola-affected area in the 21 days before illness onset. No symptoms or risks identified at this time. Initial Sepsis Screen: Does the patient meet any 2 criteria? No. Patient's initial sepsis screen is negative. Does the patient have a suspected source of infection? No. Patient's initial sepsis screen is negative. Risk Assessment: Do you want to hurt yourself or someone else? Patient reports no desire to harm self or others. Onset of symptoms was April 22, 2023. 21:38 Method Of Arrival: Ambulatory cm10 21:38 Acuity: MOSES 3 cm10 Triage Assessment: 21:40 General: Appears in no apparent distress. comfortable, Behavior is calm, cooperative. cm10 Historical: - Allergies: 21:40 NKA; cm10 - PMHx: 21:40 Chronic Pancreatitis; Diabetes - IDDM; cm10 - PSHx: 21:40 Cholecystectomy; I\T\D; stents x 2 in pancreas; cm10 - Immunization history:: Adult Immunizations unknown. - Social history:: Smoking status: Patient reports the use of cigarette tobacco products, denies chronic smoking, but will smoke occasionally. Screenin:30 [facility] ED Fall Risk Assessment (Adult) History of falling in the last 3 months, vc1 including since admission No falls in past 3 months (0 pts) Confusion or Disorientation No (0 pts) Intoxicated or Sedated No (0 pts) Impaired Gait No (0 pts) Mobility Assist Device Used No (0 pt) Altered Elimination No (0 pt) Score/Fall Risk Level 0 - 2 = Low Risk Oriented to surroundings, Maintained a safe environment, Educated pt \T\ family on fall prevention, incl call for assistance when getting out of bed. 23:01 Abuse screen: Denies threats or abuse. Nutritional screening: No deficits noted. vc1 Tuberculosis screening: No symptoms or risk factors identified. Assessment: 23:01 Reassessment: Patient and/or family updated on plan of care and expected duration. Pain vc1 level reassessed. Patient is alert, oriented x 3, equal unlabored respirations, skin warm/dry/pink. Pain: Complains of pain in abdomen. GI: Bowel sounds present X 4 quads. Abd is soft Abdomen is tender to palpation. 04/23 01:12 Reassessment: Patient and/or family updated on plan of care and expected duration. Pain vc1 level reassessed. Patient is alert, oriented x 3, equal unlabored respirations, skin warm/dry/pink. Patient states symptoms have improved. Vital Signs: 04/22 21:38 BP 146 / 105; Pulse 99; Resp 18; Temp 97.4; Pulse Ox 99% ; Weight 95.25 kg; Height 5 cm10 ft. 9 in. ; Pain 6/10; 23:01 BP 153 / 103; Pulse 89; Resp 18; Pulse Ox 99% ; vc1 04/23 00:21 BP 139 / 84; Pulse 76; Resp 18; Pulse Ox 100% ; vc1 04/22 21:38 Body Mass Index 31.01 (95.25 kg, 175.26 cm) cm10 04/22 21:38 Pain Scale: Adult cm10 ED Course: 04/22 21:27 Patient arrived in ED. im 21:31 Luis Ramirez PA is PHCP. cp 21:31 Brittani Medellin MD is Attending Physician. cp 21:40 Triage completed. cm10 21:40 Arm band placed on Patient placed in an exam room. cm10 22:48 CMP Sent. vc1 22:48 Lipase Sent. vc1 23:00 Fadia Syed, ERIC is Primary Nurse. vc1 23:01 Patient has correct armband on for positive identification. Bed in low position. Call vc1 light in reach. Pulse ox on. NIBP on. 23:56 CT Abd/Pelvis - IV Contrast Only In Process Unspecified. EDMS 04/23 01:11 No provider procedures requiring assistance completed. IV discontinued, intact, No vc1 redness/swelling at site. Pressure dressing applied. Administered Medications: 04/22 23:02 Drug: Ondansetron IVP 4 mg Route: IVP; Site: left antecubital; vc1 23:30 Follow up: Response: No adverse reaction; Marked relief of symptoms vc1 23:02 Drug: morphine IVP or IV 4 mg Route: IVP; Infused Over: 4 mins; Site: left antecubital; vc1 23:30 Follow up: Response: Marked relief of symptoms vc1 23:02 Drug: NS 0.9% IV 1000 ml Route: IV; Rate: 1 bolus; Site: left antecubital; vc1 23:50 Follow up: IV Status: Completed infusion; IV Intake: 1000ml vc1 04/23 00:26 Drug: Insulin Regular Human IVP 10 units {Co-Signature: vc1 (Fadia Syed RN).} cm10 Route: IVP; Site: left antecubital; 01:13 Follow up: Response: Blood sugar is lowered vc1 00:39 Drug: morphine IVP or IV 4 mg Route: IVP; Infused Over: 4 mins; Site: left antecubital; vc1 01:13 Follow up: Response: No adverse reaction; Marked relief of symptoms; Pain is decreased vc1 00:39 Drug: Ondansetron IVP 4 mg Route: IVP; Site: left antecubital; vc1 01:14 Follow up: Response: No adverse reaction; Marked relief of symptoms vc1 00:53 Drug: NS 0.9% IV 1000 ml Route: IV; Rate: 1 bolus; Site: left antecubital; vc1 01:13 Follow up: IV Status: Completed infusion; IV Intake: 500ml vc1 Medication: 04/22 23:01 VIS not applicable for this client. vc1 Intake: 23:50 IV: 1000ml; Total: 1000ml. vc1 04/23 01:13 IV: 500ml; Total: 1500ml. vc1 Outcome: 01:04 Discharge ordered by . cp 01:11 Discharged to home ambulatory. vc1 01:11 Condition: good 01:11 Discharge instructions given to patient, Instructed on discharge instructions, follow up and referral plans. medication usage, Demonstrated understanding of instructions, follow-up care, medications, Prescriptions given X 2. 01:14 Patient left the ED. vc1 Signatures: Dispatcher [employer] Luis Sifuentes PA PA cp Calcote, Vanessa, RN RN vc1 Sangeetha Pollack Clarissa, RN RN cm10 Fadia Syed RN vc1
--- NOTE | 2023-04-23 01:04 | EDPHYS ---
Physician Documentation [facility] Name: Jimenez Patrick Age: 27 yrs Sex: Male : 1995 Arrival Date: 04/22/2023 Time: 21:24 Bed 19 Private MD: ED Physician Brittani Medellin HPI: 04/22 22:00 This 27 yrs old Male presents to ER via Ambulatory with complaints of cp Abdominal Pain. 22:00 The patient presents with abdominal pain in the epigastric area. cp 22:00 Onset: The symptoms/episode began/occurred this morning. cp 22:00 The symptoms radiate to back. Associated signs and symptoms: Pertinent negatives: cp constipation, diarrhea, vomiting. The symptoms are described as constant. Severity of pain: in the emergency department the pain is unchanged despite home interventions. Historical: - Allergies: 21:40 NKA; cm10 - PMHx: 21:40 Chronic Pancreatitis; Diabetes - IDDM; cm10 - PSHx: 21:40 Cholecystectomy; I\T\D; stents x 2 in pancreas; cm10 - Immunization history:: Adult Immunizations unknown. - Social history:: Smoking status: Patient reports the use of cigarette tobacco products, denies chronic smoking, but will smoke occasionally. ROS: 22:05 Constitutional: Negative for body aches, chills, fever, poor PO intake. cp 22:05 Eyes: Negative for injury, pain, redness, and discharge. cp 22:05 ENT: Negative for drainage from ear(s), ear pain, sore throat, difficulty swallowing, difficulty handling secretions. 22:05 Cardiovascular: Negative for chest pain, edema, palpitations. 22:05 Respiratory: Negative for cough, shortness of breath, wheezing. 22:05 Abdomen/GI: Positive for abdominal pain, nausea, of the epigastric area, Negative for diarrhea, constipation, active vomiting. 22:05 Neuro: Negative for altered mental status, dizziness, headache, numbness, weakness. 22:05 All other systems are negative. Exam: 22:05 Head/Face: Normocephalic, atraumatic. cp 22:05 Constitutional: The patient appears in no acute distress, alert, awake, non-diaphoretic, non-toxic, well developed, well nourished. 22:05 Eyes: Periorbital structures: appear normal, Conjunctiva: normal, no exudate, no injection, Sclera: no appreciated abnormality, Lids and lashes: appear normal, bilaterally. 22:05 ENT: External ear(s): are unremarkable, Nose: is normal, Mouth: Lips: moist, Oral mucosa: pink and intact, moist, Posterior pharynx: is normal, airway is patent, no erythema, no exudate. 22:05 Chest/axilla: Inspection: normal, Palpation: is normal, no crepitus, no tenderness. 22:05 Cardiovascular: Rate: normal, Rhythm: regular. 22:05 Respiratory: the patient does not display signs of respiratory distress, Respirations: normal, no use of accessory muscles, no retractions, labored breathing, is not present, Breath sounds: are clear throughout, no decreased breath sounds, no stridor, no wheezing. 22:05 Abdomen/GI: Inspection: abdomen appears normal, Bowel sounds: active, all quadrants, Palpation: soft, in all quadrants, moderate abdominal tenderness, in the epigastric area, rebound tenderness, is not appreciated, involuntary guarding, is not appreciated. 22:05 Back: CVA tenderness, is absent. 22:05 Neuro: Orientation: to person, place \T\ time. Mentation: is normal, Motor: moves all fours, strength is normal. Vital Signs: 21:38 BP 146 / 105; Pulse 99; Resp 18; Temp 97.4; Pulse Ox 99% ; Weight 95.25 kg; Height 5 cm10 ft. 9 in. ; Pain 6/10; 23:01 BP 153 / 103; Pulse 89; Resp 18; Pulse Ox 99% ; vc1 04/23 00:21 BP 139 / 84; Pulse 76; Resp 18; Pulse Ox 100% ; vc1 04/22 21:38 Body Mass Index 31.01 (95.25 kg, 175.26 cm) cm10 04/22 21:38 Pain Scale: Adult cm10 MDM: 04/22 21:43 Patient medically screened. cp 22:00 Differential diagnosis: appendicitis, bowel obstruction, non-specific abd pain, cp pancreatitis, Peptic Ulcer Disease, Perf. Duodenal Ulcer, Perf. Gastric Ulcer. 04/23 01:02 Data reviewed: vital signs, nurses notes, lab test result(s), radiologic studies, CT cp scan. 01:02 Consideration of Admission/Observation Escalation of care including cp admission/observation considered. I considered the following discharge prescriptions or medication management in the emergency department Medications were administered in the Emergency Department. See MAR. Counseling: I had a detailed discussion with the patient and/or guardian regarding the historical points, exam findings, and any diagnostic results supporting the discharge/admit diagnosis, lab results, radiology results, to return to the emergency department if symptoms worsen or persist or if there are any questions or concerns that arise at home. Response to treatment: the patient's symptoms have markedly improved after treatment, and as a result, I will discharge patient. Special discussion: Based on the patient's Hx, exam, and Dx evaluation, there is no indication for emergent surgery or inpatient Tx. It is understood by the patient/guardian that if the Sx's persist or worsen they need to return immediately for re-evaluation. 04/22 21:46 Order name: CBC with Diff; Complete Time: 22:47 cp 04/22 21:46 Order name: CMP; Complete Time: 00:11 cp 04/22 21:46 Order name: Lipase; Complete Time: 00:11 cp 04/23 01:13 Order name: Glucose, Ancillary Testing EDMS 04/22 22:48 Order name: CT Abd/Pelvis - IV Contrast Only cp 04/22 21:46 Order name: IV Saline Lock; Complete Time: 22:48 cp 04/22 21:46 Order name: Labs collected and sent; Complete Time: 22:48 cp 04/23 00:56 Order name: PO challenge; Complete Time: 01:01 cp 04/23 00:57 Order name: Accucheck Blood Glucose; Complete Time: 01:01 cp Administered Medications: 04/22 23:02 Drug: Ondansetron IVP 4 mg Route: IVP; Site: left antecubital; vc1 23:30 Follow up: Response: No adverse reaction; Marked relief of symptoms vc1 23:02 Drug: morphine IVP or IV 4 mg Route: IVP; Infused Over: 4 mins; Site: left antecubital; vc1 23:30 Follow up: Response: Marked relief of symptoms vc1 23:02 Drug: NS 0.9% IV 1000 ml Route: IV; Rate: 1 bolus; Site: left antecubital; vc1 23:50 Follow up: IV Status: Completed infusion; IV Intake: 1000ml vc1 04/23 00:26 Drug: Insulin Regular Human IVP 10 units {Co-Signature: vc1 (Fadia Syed RN).} cm10 Route: IVP; Site: left antecubital; 01:13 Follow up: Response: Blood sugar is lowered vc1 00:39 Drug: morphine IVP or IV 4 mg Route: IVP; Infused Over: 4 mins; Site: left antecubital; vc1 01:13 Follow up: Response: No adverse reaction; Marked relief of symptoms; Pain is decreased vc1 00:39 Drug: Ondansetron IVP 4 mg Route: IVP; Site: left antecubital; vc1 01:14 Follow up: Response: No adverse reaction; Marked relief of symptoms vc1 00:53 Drug: NS 0.9% IV 1000 ml Route: IV; Rate: 1 bolus; Site: left antecubital; vc1 01:13 Follow up: IV Status: Completed infusion; IV Intake: 500ml vc1 Disposition Summary: 04/23/23 01:04 Discharge Ordered Location: Home cp Problem: chronic cp Symptoms: have improved cp Condition: Stable cp Diagnosis - Other chronic pancreatitis cp - Diabetes mellitus due to underlying condition with hyperglycemia cp Followup: cp - With: Private Physician - When: 2 - 3 days - Reason: Recheck today's complaints Discharge Instructions: - Discharge Summary Sheet cp - Hyperglycemia cp - Blood Glucose Monitoring, Adult cp - Diabetes Mellitus and Nutrition, Adult cp - Chronic Pancreatitis cp Forms: - Medication Reconciliation Form cp - Thank You Letter cp - Antibiotic Education cp - Prescription Opioid Use cp - Patient Portal Instructions cp - Leadership Thank You Letter cp Prescriptions: - Zofran 4 mg Oral Tablet - take 1 tablet by ORAL route every 12 hours As needed; 20 tablet; Refills: 0, cp Product Selection Permitted - dicyclomine 20 mg Oral Tablet - take 1 tablet by ORAL route 4 times per day; 20 tablet; Refills: 0, Product cp Selection Permitted Addendum: 04/24/2023 06:41 STAFF ATTESTATION STATEMENT: I was immediately available onsite in the emergency s d2 department for consultation in the care of this patient. I did not see or examine this patient. Brittani Medellin MD. Signatures: Dispatcher [employer] EDMS Luis Ramirez PA PA cp Fadia Syed RN RN vc1 Brittani Medellin MD MD sd2 Rachel Woodward, RN RN cm10 Fadia Syed RN vc1
[2023-04-23 01:33] VITALS: TEMP 97.4
[2023-04-23 01:36] VITALS: BP 139/84; O2SAT 100
--- NOTE | 2023-04-23 11:06 | RAD REPORT ---
EXAM DESCRIPTION: CT - Abdomen Pelvis W Contrast - 04/23/2023 6:11 am CLINICAL HISTORY: EPIGASTRIC PAIN. COMPARISON: CT of the abdomen and pelvis from December 16, 2022. TECHNIQUE: CT of the abdomen and pelvis was performed following intravenous administration of iodina patricio contrast. Oral contrast was not administered. Axial, coronal, and sagittal soft tissue window rec onstructions were created and sent to PACS. This exam was performed according to our departmental dose-optimization program, which includes autom ated exposure control, adjustment of the mA and/or kV according to patient size and/or use of iterati ve reconstruction technique. FINDINGS: Thoracic: No significant abnormality. Hepatobiliary: Diffuse hepatic steatosis. Hepatomegaly, measuring 20.2 cm in length. No concerning he patic lesion identified. The portal veins are patent. The gallbladder is unremarkable. No biliary cat lynda dilatation. Pancreas: Sequela of chronic pancreatitis, with severe pancreatic atrophy and multifocal coarse calci fications as well as prominence of the main pancreatic duct. No peripancreatic inflammatory changes o r fluid collections.. Spleen: Unremarkable. Gastrointestinal: No evidence of bowel obstruction or perienteric inflammation. The appendix is rahat l. Moderate amount of fecal material throughout the colon and rectum. Nondilated scattered fluid-fill ed loops of small bowel in a nonobstructive pattern. Adrenals: No abnormality identified in either adrenal gland. Renal: No concerning parenchymal abnormality in either kidney. No hydronephrosis or urolithiasis. Bladder/Reproductive: Unremarkable appearance of the urinary bladder by CT technique. Vascular/Lymphatics: No lymphadenopathy identified by CT size criteria. Abdominal aorta is normal in caliber. Musculoskeletal: No concerning osseous lesion identified. Fluid / peritoneum: No significant free fluid. No free intraperitoneal air identified. IMPRESSION 1. Nonobstructive fluid-filled small bowel loops, nonspecific. Differential includes en teritis versus physiologic appearance. 2. Moderate stool burden. Correlate for potential mild constipation. 3. Sequela of chronic pancreatitis. 4. Diffuse hepatic steatosis and hepatomegaly. Electronically signed by: Alma Lugo MD 04/23/2023 12:30 AM CDT Due to temporary technical issues with the PACS/Fluency reporting system, reports are being signed by the in house radiologists without review as a courtesy to insure prompt reporting. The interpreting radiologist is fully responsible for the content of the report.
== END 2023-04-23 01:14 | disposition home or self-care (01) ==
LOC: ER 21:24
DX: K86.1 Other chronic pancreatitis (principal); E11.65 Type 2 diabetes mellitus with hyperglycemia; F17.210 Nicotine dependence, cigarettes, uncomplicated
CPT/HCPCS: 36415; 74177; 80053; 82947; 83690; 85025; 96361; 96374; 96375; 99284; J1815; J2405; J7030; Q9967

== ENCOUNTER 2023-06-21 21:36 | Emergency (ER) | payer SELFPAY ==
--- OUTSIDE RECORDS SUMMARY | 2023-06-21 21:40 | XMS REPORT | Continuity of Care Document ---
:1995 Author Organization [facility] t Address [address] [place] [address] [place] [id number] Care Team Providers Name Role Phone PCP, PATIENT DOES NOT HAVE A Primary Care Physician Lesvia Almanzar RN, Nabil Basurto Attending Clinician Unavailable LAZARO HUNTER Attending Clinician Unavailable Augustin Kincaid Attending Clinician Esa Ko DO Attending Clinician Lazaro Hunter MD Attending Clinician Syeda Alberts Attending Clinician SYEDA PERSAUD Attending Clinician Unavailable Doctor Unassigned, [place] Attending Clinician Unavailable LAZARO HUNTER Admitting Clinician [...] nivers pain pain 1-07 ity of 00:00: [address] Branch Obesity Obesity Disease Active Univers (BMI (BMI 8-12 ity of 30-39.9) 30-39.9) 00:00: [address] Branch 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 [...] be Branch different from the original. 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 Utility Allergies, Adverse Reactions, Alerts Allergy Allergy Status Severity Reaction(s) Onset Inactive Treating Comm ents Source Name Type Date Date Clinician NO KNOWN Drug Active Univers ALLERGIE Class ity of S [place] [facility] Social History Social Habit Start Date Stop Date Quantity Comments Source History of tobacco Passive smoker Un iversity of use [place] [facility] History SDOH Social Unive rsity of [facility] Med ical Together Branch History SDOH Social Unive rsity of Connections [facility] Medical Branch History SDOH Social Unive rsity of [place] [facility] Membership Branch History SDOH Social Unive rsity of Connections [place] [facility] Meetings Branch History SDOH 2022-09-13 2022-09-13 3 University o f Physical Activity 00:00:00 00:00:00 [place] [facility] MPS Branch History SDOH 2022-09-13 2022-09-13 5 University o f Financial 00:00:00 00:00:00 [place] [facility] History SDOH Food 2022-09-13 2022-09-13 1 Univers ity of Worry 00:00:00 00:00:00 [place] [facility] History SDOH Food 2022-09-13 2022-09-13 1 Univers ity of Scarcity 00:00:00 00:00:00 [place] [facility] History SDOH 2022-09-13 2022-09-13 2 University o f Transport Med 00:00:00 00:00:00 [place] [facility] History SDOH 2022-09-13 2022-09-13 2 University o f Transport Non-Med 00:00:00 00:00:00 [place] [facility] History SDOH 2022-09-13 2022-09-13 1 University o f Alcohol Frequency 00:00:00 00:00:00 [facility] edical Branch History SDOH 2022-09-13 2022-09-13 0 University o f Alcohol Std Drinks 00:00:00 00:00:00 [place] [facility] History SDOH 2022-09-13 2022-09-13 1 University o f Alcohol Binge 00:00:00 00:00:00 [place] [facility] History SDOH Social 2022-09-13 2022-09-13 5 Unive rsity of Connections Phone 00:00:00 00:00:00 [facility] edical Branch History SDNC Social 2022-09-13 2022-09-13 5 Unive rsity of Connections Living 00:00:00 00:00:00 [place] [facility] History SDOH 2022-09-13 2022-09-13 4 University o f Physical Activity 00:00:00 00:00:00 [facility] Branch Tobacco use and 2022-09-12 2022-09-12 Smokeless Universit y of exposure 00:00:00 00:00:00 tobacco non-user [facility] dical Branch Alcohol intake 2022-09-12 2022-09-12 Ex-drinker [facility] 00:00:00 00:00:00 (finding) [facility] Exposure to 2022-09-01 2022-09-11 Not sure University SARS-CoV-2 (event) 00:00:00 13:58:00 [facility] Education 2022-09-11 2022-09-11 13 University 00:00:00 00:00:00 [facility] Sex Ass[birth year] At [birth year] Universit y of 00:00:00 00:00:00 [facility] Smoking Status Start Date Stop Date Source Ex-smoker 2022-09-12 00:00:00 2022-09-12 00:00:00 Universi ty [facility] Unknown if ever smoked [facility] Medications Ordered Filled Start Stop [...] injection breakfast and dinner. insulin NPH Yes [id number] 60U inject 60 Univers and regular 1-10 Units ity of human 70-30 00:00: [place] (NOVOLIN 00 skin 2 Medical 70/30 U-100 (two) Branch INSULIN) times 100 unit/mL daily (70-30) before injection breakfast and dinner. insulin NPH Yes [id number] 60U inject 60 Univers and regular 1-10 Units ity of human 70-30 00:00: [place] (NOVOLIN 00 skin 2 Medical 70/30 U-100 (two) Branch INSULIN) times 100 unit/mL daily (70-30) before injection breakfast and dinner. atorvastati 2022- No [id number] 40mg Take 1 Univers n 40 mg 1-10 02-10 tablet by ity of tablet 00:00: 05:59 mouth at [place] 00 :00 bedtime Medical for 30 Branch days. lisinopriL No [id number] 10mg Take 1 Univers 10 mg 1-10 02-10 tablet by ity of tablet 00:00: 05:59 mouth in [place] 00 :00 the Medical morning Branch and 1 tablet in the evening. Do all this for 30 days. atorvastati No [id number] 40mg Take 1 Univers n 40 mg 1-10 02-10 tablet by ity of tablet 00:00: 05:59 mouth at [place] 00 :00 bedtime Medical for 30 Branch days. lisinopriL No [id number] 10mg Take 1 Univers 10 mg 1-10 02-10 tablet by ity of tablet 00:00: 05:59 mouth in [place] 00 :00 the Medical morning Branch and [...] IV Push, ity of (PF)) 18:04: Q6HPRN, [place] injection 4 03 Starting Medi meenu mg [...] :48 Starting Medi meenu tablet 1 on [facility] Branch tablet 09/11/22 at 1203, Until 09/13/22 at 1202, Routine, Pain (scale 4-6) acetaminoph 2022-0 Yes 650mg 650 mg, Un brendan en 09-11 Oral, ity of (TYLENOL) 18:03: Q6HPRN, [place] tablet 650 39 Starting Medic al mg on Sat Branch 09/11/22 at 1203, Until Discontinu ed, Routine, Pain (scale 1-3) insulin NPH 2022- No 60U 60 Units, Univers and regular 09-11 Subcutaneo i ty of human 70-30 18:03: 18:54 us, ONCE, [place] (70-30 00 :00 1 dose, On Medical U-100 09/11/22 Branch INSULIN) at 1215, 100 unit/mL MARITA (70-30) injection 60 Units FENTanyl PF 2022- No 50ug 50 mcg, Un brendan (SUBLIMAZE 09-11 Slow IV ity o f (PF)) 16:38: 16:41 Push, [place] injection 00 :00 ONCE, 1 Medical 50 mcg dose, On Branch 09/11/22 at 1045, MARITA iopamidol 2022- No [id number] 78mL 78 mL, U nivers (ISOVUE 09-11 Intravenou ity o f 370-500 mL) 16:35: 16:45 s, ONCE, 1 [place] injection 00 :00 dose, On Medica l 78 mL 09/11/22 Branch at 1045, Routine ondansetron 2022- No [id number] 4mg 4 mg, Slow Univers (ZOFRAN 09-11 IV Push, ity of (PF)) 15:45: 15:50 ONCE, 1 [place] injection 4 00 :00 dose, On Medi meenu mg 09/11/22 Branch at 0945, MARITA famotidine 2022- No [id number] 20mg 20 mg, Univers (PEPCID 09-11 Slow IV ity of (PF)) 15:45: 15:50 Push, [place] injection 00 :00 ONCE, 1 Medical 20 mg dose, On Branch 09/11/22 at 0945, MARITA NaCl 0.9% 2022- No [id number] 1000mL at 999 Univers (NS) IV 09-11 mL/hr, ity of infusion 15:33: 17:00 Intravenou [place] 1,000 mL 00 :00 s, ONCE, 1 Medic al dose, On Branch 09/11/22 at 0945, MARITA sodium Yes [id number] 5mL 5 mL, Univer s chloride 1-07 Intravenou ity o f (NS) 15:32: s, PRN, [place] injection 5 59 Starting Medi meenu mL on Sat Branch 09/11/22 at 0932, Until Discontinu ed, Routine, IV line flushing maalox:diph 2020- No 15mL 15 mL, Uni vers enhydrAMINE 11-08- Oral, ity of :lidocaine 20:45: 20:39 ONCE, 1 Stu as 2 % viscous 00 :00 dose, Sat Med ical 1:1:1 11/08/20 at [place] (FIRST-MOUT 1445, MARITA HWASH BLM) oral suspension 15 mL insulin 2020- No 9U 9 Units, [facility] 11-08 Slow IV ity of human 20:30: 19:39 Push, [place] (HUMULIN R) 00 :00 ONCE, 1 Medic [...] 1,000 mL 00 :00 IV Medical Infusion, [place] ONCE, 1 dose, 11/08/20 at 1330, MARITA NaCl 0.9% 2020- No 1000mL at 999 Uni vers (NS) bolus 3-06 03-06 mL/hr, ity of infusion 18:30: 19:39 1,000 mL, Stu as 1,000 mL 00 :00 IV Medical Infusion, Branch ONCE, 1 dose, 11/08/20 at 1230, MARITA ondansetron Yes [id number] 4mg Take 1 Univers (ZOFRAN 3-06 tablet by ity of ODT) 4 mg 00:00: mouth [place] disintegrat 00 every 8 Medic al ing tablet (eight) Branch hours as needed for Nausea and Vomiting (N/V). dicyclomine Yes [id number] 20mg Take 1 Univers 20 mg 3-06 tablet by ity of tablet 00:00: mouth 4 [place] 00 (four) Medical times Branch daily as needed for Abdominal pain. ondansetron 2022- No [id number] 4mg Take 1 Univers (ZOFRAN 3-06 01-07 tablet by ity of ODT) 4 mg 00:00: 00:00 mouth [place] disintegrat 00 :00 every 8 Medic al ing tablet (eight) Branch hours as needed for Nausea and Vomiting (N/V). dicyclomine 2022- No [id number] 20mg Take 1 Univers 20 mg 3-06 -07 tablet by ity of tablet 00:00: 00:00 mouth 4 [place] 00 :00 (four) Medical times [place] daily as needed for Abdominal pain. No known No Univers medications [facility] Vital Signs Vital Name Observation Time Observation Value Comments Source Systolic blood 2022-09-14 17:21:00 130 mm[Hg] Univer [facility] Diastolic blood 2022-09-14 17:21:00 93 [facility]Hg[facility] 2022-09-14 17:21:00 87 /min [facility] Body temperature 2022-09-14 17:21:00 35.56 [facility] Respiratory rate 2022-09-14 17:21:00 18 /min [facility] Oxygen saturation in 2022-09-14 17:21:00 98 /min [facility] Arterial blood by [facility] Pulse oximetry [place] Body weight 2022-09-14 09:02:00 98.476 kg [facility] BMI 2022-09-14 09:02:00 32.06 kg/m2 [facility] Body height 2022-09-11 19:14:00 175.3 cm [facility] Systolic blood 2020-11-08 21:00:00 136 mm[Hg] Univer sity of pressure [facility] Diastolic blood 2020-11-08 21:00:00 95 mm[Hg] Unive rsity of [facility] Heart rate 2020-11-08 21:00:00 93 /min [facility] Respiratory rate 2020-11-08 21:00:00 16 /min [facility] Oxygen saturation in 2020-11-08 21:00:00 98 /min [facility] Arterial blood by [facility] Pulse oximetry [place] Body temperature 2020-11-08 18:12:00 36.44 [facility]enaida [facility] Body height 2020-11-08 18:12:00 175.3 cm [facility] Body weight 2020-11-08 18:12:00 92.987 kg [facility] BMI 2020-11-08 18:12:00 30.27 kg/m2 [facility] Procedures Procedure Date / Time Performing Clinician Source Performed POCT GLUCOSE 2022-09-14 17:22:00 Elsa [facility] (AUTOMATED) [facility] LIPASE 2022-09-14 11:57[facility] BASIC METABOLIC PANEL 2022-09-14 11:57:[facility] (NA, K, CL, CO2, Medical Branch GLUCOSE, BUN, CREATININE, CA) LIPID PANEL 2022-09-14 11:57:00 neela [facility] ([id number])(TOTAL [facility] CHOLESTEROL, TRIGLYCERIDES, HDL) CBC WITH DIFF 2022-09-14 11:57:00 neela [facility] POCT GLUCOSE 2022-09-14 02:35:00 Elsa [facility] (AUTOMATED) Medical [place] POCT GLUCOSE 2022-09-13 22:59:00 Elsa [facility] (AUTOMATED) [facility] POCT GLUCOSE 2022-09-13 17:43:00 Elsa [facility] (AUTOMATED) Medical Branch POCT GLUCOSE 2022-09-13 13:30:00 [facility] (AUTOMATED) Medical Branch BASIC METABOLIC PANEL 2022-09-13 09:26:00 Emy Hyde [facility] (NA, K, CL, CO2, Medical Branch GLUCOSE, BUN, CREATININE, CA) POCT GLUCOSE 2022-09-12 22:34:00 Elsa [facility] (AUTOMATED) Medical Branch POCT GLUCOSE 2022-09-12 17:15:00 Elsa [facility] (AUTOMATED) Medical Branch POCT GLUCOSE 2022-09-12 13:44:00 [facility] (AUTOMATED) Medical Branch MAGNESIUM 2022-09-12 09:07:00 [facility] HEPATIC FUNCTION PANEL 2022-09-12 09:07:00 [id number] (ALB,T.PRO,BILI Medical Branch T,BU/BC,ALT,AST,ALK PHOS) BASIC METABOLIC PANEL 2022-09-12 09:07:00 Emy Hyde [facility] (NA, K, CL, CO2, Medical Branch GLUCOSE, BUN, CREATININE, CA) LIPID PANEL 2022-09-12 09:07:00 [facility] ([id number])(TOTAL Medical Branch CHOLESTEROL, TRIGLYCERIDES, HDL) CBC WITH DIFF 2022-09-12 09:07:00 Emy Hyde [facility] Medical Branch POCT GLUCOSE 2022-09-12 09:01:00 Esa Ko [facility] (AUTOMATED) Medical Branch POCT GLUCOSE 2022-09-12 02:38:00 Esa Ko [facility] (AUTOMATED) Medical Branch POCT GLUCOSE 2022-09-11 22:42:00 Esa Ko [facility] (AUTOMATED) Medical Branch POCT GLUCOSE 2022-09-11 18:57:00 Mateus [facility] (AUTOMATED) Medical Branch POCT GLUCOSE(AGE 2022-09-11 17:22:00 Mateus [facility] >30DAYS) Medical Branch POCT GLUCOSE 2022-09-11 17:21:00 Mateus [facility] (AUTOMATED) Medical Branch CT ABDOMEN PELVIS W 2022-09-11 16:38:00 Augustin Ignacio [facility] CONTRAST Medical Branch POCT GLUCOSE 2022-09-11 15:59:00 Mateus [facility] (AUTOMATED) Medical Branch LIPASE 2022-09-11 15:48:00 Mateus [facility] COMP. METABOLIC PANEL 2022-09-11 15:48:00 Mateus [facility] ([id number]) Medical Branch CBC WITH DIFF 2022-09-11 15:48:00 Mateus [facility] GLYCOSYLATED HEMOGLOBIN 2022-09-11 15:48:00 Esa Ko [facility] (A1C) [facility] Branch URINALYSIS 2022-09-11 15:46:00 Mateus [facility] CONSENT/REFUSAL FOR 2022-09-11 15:16:37 Doctor Unassigned, No [facility] DIAGNOSIS AND TREATMENT Name Medical Branch POCT GLUCOSE 2020-11-08 20:26:00 [facility] (AUTOMATED) Medical Branch LIPASE 2020-11-08 18:29:00 [facility] HEPATIC FUNCTION PANEL 2020-11-08 18:29:00 [facility] ([id number]) (ALB,T.PRO,BILI Medical Branch T,BU/BC,ALT,AST,ALK PHOS) BASIC METABOLIC PANEL 2020-11-08 18:29:00 [facility] (NA, K, CL, CO2, Medical Branch GLUCOSE, BUN, CREATININE, CA) CBC WITH DIFF 2020-11-08 18:29:00 [facility] URINALYSIS 2020-11-08 18:29:[facility]ACY 2020-11-08 18:06:16 Doctor Unassigned, No [facility] PRACTICES Name Medical Branch CONSENT/REFUSAL FOR 2020-11-08 18:06:04 [facility] Name Medical Branch Encounters Start End Encounter Admission Attending Care Care Encounter Source Date/Time Date/Time Type Type Clinicians Facility Department ID 2021-09-30 [id number] Common 12:34:38 [id number] [facility] 2022-09-15 2022-09-15 Transition LOR Almanzar [id number] Univers 00:00:00 00:00:00 of Care Nabil COUCHY [id number] ity of [place] [id number] [facility] 403 Branch 2022-09-11 2022-09-14 Inpatient X ELSA [facility] [id number] Univers 09:26:00 13:00:00 LAZARO ity [facility] 2022-09-11 2022-09-14 [facility] LibiabrittanyAugustin [facility] [id number] Univers 09:26:00 13:00:00 Encounter Esa Ko 350.1.13.10 ity of Lazaro Hunter 4.2.7.2.686 [facility] [id number] [facility] 081 Branch 2020-11-08 2020-11-08 Emergency [facility] [id number] Univers 12:16:00 15:38:00 Syedagregg Laurent 350.1.13.10 i [place] [id number] [facility] 084 Branch 2020-11-08 2020-11-08 Emergency X [facility] ERT [id number] Univers 12:06:00 12:06:00 SYEDA ity [facility] 2020-11-08 2020-11-08 Orders Doctor CARLOS [id number] Univers 00:00:00 00:00:00 Only Unassigned, JOSE 350.1.13.10 ity of [place] [facility] 4.2.7.2.686 Stu as [id number] [facility] 009 Branch Results Test Description Test Time Test Comments Results Result Comments Source POCT GLUCOSE (AUTOMATED) 2022-09-14 18:35:20 Test Item Value Reference Range Interpretation Comme nts POCT GLU (test code = 3409064483) 283 mg/dL 70-110 H Lab Interpretation (test code = 19455-5) Abnormal [facility] GLUCOSE (AUTOMATED)2022-09-14 02:40:24 Test Item Value Reference Range Interpretation Comments POCT GLU (test code = 8418688206) 191 mg/dL 70-110 H Lab Interpretation (test code = Abnormal 23311-8) [facility] GLUCOSE (AUTOMATED)2022-09-13 23:13:20 Test Item Value Reference Range Interpretation Comments POCT GLU (test code = 2575211549) 126 mg/dL 70-110 H Lab Interpretation (test code = Abnormal 16374-1) [facility] GLUCOSE (AUTOMATED)2022-09-13 17:51:10 Test Item Value Reference Range Interpretation Comments POCT GLU (test code = 4390373524) 270 mg/dL 70-110 H Lab Interpretation (test code = Abnormal 37194-8) [facility] GLUCOSE (AUTOMATED)2022-09-13 14:08:01 Test Item Value Reference Range Interpretation Comments POCT GLU (test code = 4926213750) 177 mg/dL 70-110 H Lab Interpretation (test code = Abnormal 50248-7) [facility] GLUCOSE (AUTOMATED)2022-09-12 22:53:55 Test Item Value Reference Range Interpretation Comments POCT GLU (test code = 6209691955) 207 mg/dL 70-110 H Lab Interpretation (test code = Abnormal 52458-5) [facility] GLUCOSE (AUTOMATED)2022-09-12 18:09:02 Test Item Value Reference Range Interpretation Comments POCT GLU (test code = 2980426734) 92 mg/dL 70-110 Lab Interpretation (test code = Normal 85608-5) [id number]TOTAL CHOLESTEROL, TRIGLYCERIDES, HDL)2022-09-12 14:58:08 Test Item Value Reference Range Interpretation Comments CHOL (test code = 138 mg/dL 120-200 3056356026) HDL (test code = 23 mg/dL See_Comment L [Automated message] 1675040525) The system [employer] generated this result transmit patricio reference range : >=40. The refer ence range was not u sed to interpret th is result as normal/abnormal . HDLC RATIO (test code = See_Comment H [Au tomated message] 6576770399) The system [employer] generated this result transmit patricio reference range : <=5.0. The refe rence range was not u sed to interpret th is result as normal/abnormal . TRIG (test code = 171 mg/dL 30-170 H 7594156395) LDL CHOL (test code = 81 mg/dL See_Comment [Auto mated message] 11182-9) The system [employer] generated this result transmit patricio reference range : <=160. The refe rence range was not u sed to interpret th is result as normal/abnormal . VLDL (test code = 34 mg/dL 5-60 1149613692) Lab Interpretation (test Abnormal code = 69826-2) [facility]2022-09-12 13:54:38 Test Item Value Reference Range Interpretation Comments POCT GLU (test code = 2781830793) 84 mg/dL 70-110 Lab Interpretation (test code = Normal 39933-2) [facility] (74833[facility] (ALB,T.PRO,BILI T,BU/BC,ALT,AST,ALK PHOS)2022-09-12 13:03:03 Test Item Value Reference Range Interpretation Comments TOTAL BILI (test code = 3007225053) 1.0 mg/dL 0.1-1.1 BILI UNCON (test code = 8627832252) 0.8 mg/dL 0.1-1.1 BILI CONJ (test code = 7148067920) 0.0 mg/dL 0.0-0.3 T PROTEIN (test code = 4120678157) 6.7 g/dL 6.3-8.2 ALBUMIN (test code = 7425624966) 4.0 g/dL 3.5-5.0 ALK PHOS (test code = 4334794067) 106 U/L 34-122 ALTv (test code = 1742-6) 146 U/L 5-50 H AST(SGOT) (test code = 5445200253) 81 U/L 13-40 H Lab Interpretation (test code = Abnormal 43369-4) [facility] 13:02:43 Test Item Value Reference Range Interpretation Comments MAGNESIUM (test code = 8923973664) 1.8 mg/dL 1.7-2.4 Lab Interpretation (test code = Normal 76545-8) [facility] (NA, K, CL, CO2, GLUCOSE, BUN, CREATININE, CA)2022-09-12 12:10:26 Test Item Value Reference Range Interpretation Comments NA (test code = 142 mmol/L 135-145 4584853083) K (test code = 3.1 mmol/L 3.5-5.0 L 8856291756) CL (test code = 106 mmol/L 98-108 0924110937) CO2 TOTAL (test code = 24 mmol/L 23-31 2299849121) AGAP (test code = 2-16 9550961643) BUN (test code = 8 mg/dL 7-23 9330069914) GLUCOSE (test code = 73 mg/dL 70-110 7978427562) CREATININE (test code = 0.72 mg/dL 0.60-1.25 1570155976) CALCIUM (test code = 8.1 mg/dL 8.6-10.6 L 4817710111) eGFR (test code = mL/min/1.73m2 7096519120) RAFAEL (test code = RAFAEL) Association of [...] tests). Lab Interpretation Abnormal (test code = 41397-2) General acute hospital WITH LVUF1221-02-05 11:46:12 Test Item Value Reference Range Interpretation [...] (test code = 36.0 fL 38.5-51.6 L 58598-1) RDW-CV (test code = 11.9 % 12.1-15.4 L 788-0) PLT (test code = See_Comment [Automated 777-3) message] The sy stem which generated this result transmitted reference range : 150 - 328 10*3/ ?L. The reference r teresita was not used to interpret this result as normal/abnormal . MPV (test code = 10.7 fL 9.8-13.0 32209-0) NRBC/100 WBC (test See_Comment [Automat ed code = 8353970075) message] The system which generated this result transmitted reference range : 0.0 - 10.0 /100 WBCs. The refer ence range was not u sed to interpret th is result as normal/abnormal . NRBC x10^3 (test code See_Comment [Auto mated = 2234120846) message] The s ystem which generated this result transmitted reference range : 10*3/?L. The reference range was not used to interpret this result as normal/abnormal . GRAN MAT (NEUT) % 50.2 % (test code = 770-8) IMM GRAN % (test code 0.40 % = 9928177866) LYMPH % (test code = 37.0 % 736-9) MONO % (test code = 8.3 % 5905-5) EOS % (test code = 3.6 % 713-8) BASO % (test code = 0.5 % 706-2) GRAN MAT x10^3(ANC) 4.81 10*3/uL 1.99-6.95 (test code = 7792976454) IMM GRAN x10^3 (test 0.04 10*3/uL 0.00-0.06 code = 7471430284) LYMPH x10^3 (test code 3.56 10*3/uL 1.09-3.23 H = 731-0) MONO x10^3 (test code 0.80 10*3/uL 0.36-1.02 = 742-7) EOS x10^3 (test code = 0.35 10*3/uL 0.06-0.53 711-2) BASO x10^3 (test code 0.05 10*3/uL 0.01-0.09 = 704-7) Lab Interpretation Abnormal (test code = 79383-1) [facility] GLUCOSE (AUTOMATED)2022-09-12 11:19:34 Test Item Value Reference Range Interpretation Comments POCT GLU (test code = 7704569150) 70 mg/dL 70-110 Lab Interpretation (test code = Normal 00898-6) [facility] GLUCOSE (AUTOMATED)2022-09-12 02:46:59 Test Item Value Reference Range Interpretation Comments POCT GLU (test code = 7350522405) 90 mg/dL 70-110 Lab Interpretation (test code = Normal 36788-7) [facility] GLUCOSE (AUTOMATED)2022-09-11 23:13:35 Test Item Value Reference Range Interpretation Comments POCT GLU (test code = 7193750465) 120 mg/dL 70-110 H Lab Interpretation (test code = Abnormal 41960-2) [facility] Hem[facility] (A1C)2022-09-11 20:41:39 Test Item Value Reference Range Interpretation Comments HGB A1C (test code = 10.1 % 4.0-5.7 H 4548-4) RAFAEL (test code = RAFAEL) Reference RangesNormal: <5.7%Prediabetes: 5.7 - 6.4%Diabetes: > 6.5% Lab Interpretation (test Abnormal code = 81986-2) [facility] GLUCOSE (AUTOMATED)2022-09-11 19:01:23 Test Item Value Reference Range Interpretation Comments POCT GLU (test code = 8611469598) 302 mg/dL 70-110 H Lab Interpretation (test code = Abnormal 83921-2) [facility] GLUCOSE (AUTOMATED)2022-09-11 19:01:23 Test Item Value Reference Range Interpretation Comments POCT GLU (test code = 3419003334) 277 mg/dL 70-110 H Lab Interpretation (test code = Abnormal 71995-5) [facility] GLUCOSE (AUTOMATED)2022-09-11 19:01:23 Test Item Value Reference Range Interpretation Comments POCT GLU (test code = 3053075197) 283 mg/dL 70-110 H Lab Interpretation (test code = Abnormal 23095-3) [facility] GLUCOSE(AGE >30DAYS)2022-09-11 17:22:00 Test Item Value Reference Range Interpretation Comments POCT Glu (age>30days) (test code = 277 mg/dL 70-110 A 3342) Lab Interpretation (test code = Abnormal 79648-5) [facility] [id number] 16:11:48 Test Item Value Reference Range Interpretation Comments NA (test code = 137 mmol/L 135-145 4941832159) K (test code = 4.5 mmol/L 3.5-5.0 4757625442) CL (test code = 102 mmol/L 98-108 1234789317) CO2 TOTAL (test code = 22 mmol/L 23-31 L 6865799459) AGAP (test code = 2-16 4615448371) BUN (test code = 15 mg/dL 7-23 4595053406) GLUCOSE (test code = 318 mg/dL 70-110 H 6934570874) CREATININE (test code = 0.76 mg/dL 0.60-1.25 8015658508) TOTAL BILI (test code = 1.5 mg/dL 0.1-1.1 H 1968824248) CALCIUM (test code = 9.1 mg/dL 8.6-10.6 0521236398) T PROTEIN (test code = 7.7 g/dL 6.3-8.2 3116022117) ALBUMIN (test code = 5.0 g/dL 3.5-5.0 8769470000) ALK PHOS (test code = 124 U/L 34-122 H 8913939132) ALTv (test code = 173 U/L 5-50 H 1742-6) AST(SGOT) (test code = 76 U/L 13-40 H 0703083421) eGFR (test code = mL/min/1.73m2 7771168694) RAFAEL (test code = RAFAEL) Association of [...] tests). Lab Interpretation Abnormal (test code = 27799-0) [facility], [id number] 16:11:22 Test Item Value Reference Range Interpretation Comments LIPASE (test code = 0497259833) 22 U/L 0-220 Lab Interpretation (test code = Normal 19340-3) [facility] with [id number] 15:57:05 Test Item Value Reference Range Interpretation Comments WBC (test code = See_Comment H [Automated 4490-2) message] The sy stem which generated this result transmitted reference range : 4.20 - 10.70 10*3/?L. The reference range was not used to interpret this result as normal/abnormal . RBC (test code = See_Comment [Automated 769-8) message] The sy stem which generated this [...] (test code = 35.5 fL 38.5-51.6 L 90230-2) RDW-CV (test code = 11.8 % 12.1-15.4 L 788-0) PLT (test code = See_Comment [Automated 777-3) message] The sy stem which generated this result transmitted reference range : 150 - 328 10*3/ ?L. The reference r teresita was not used to interpret this result as normal/abnormal . MPV (test code = 10.3 fL 9.8-13.0 29461-9) NRBC/100 WBC (test See_Comment [Automat ed code = 3603181037) message] The system which generated this result transmitted reference range : 0.0 - 10.0 /100 WBCs. The refer ence range was not u sed to interpret th is result as normal/abnormal . NRBC x10^3 (test code See_Comment [Auto mated = 9741308808) message] The s ystem which generated this result transmitted reference range : 10*3/?L. The reference range was not used to interpret this result as normal/abnormal . GRAN MAT (NEUT) % 64.6 % (test code = 770-8) IMM GRAN % (test code 0.50 % = 9944131342) LYMPH % (test code = 25.3 % 736-9) MONO % (test code = 7.3 % 5905-5) EOS % (test code = 1.9 % 713-8) BASO % (test code = 0.4 % 706-2) GRAN MAT x10^3(ANC) 7.62 10*3/uL 1.99-6.95 H (test code = 4020565650) IMM GRAN x10^3 (test 0.06 10*3/uL 0.00-0.06 code = 2807324516) LYMPH x10^3 (test code 2.98 10*3/uL 1.09-3.23 = 731-0) MONO x10^3 (test code 0.86 10*3/uL 0.36-1.02 = 742-7) EOS x10^3 (test code = 0.22 10*3/uL 0.06-0.53 711-2) BASO x10^3 (test code 0.05 10*3/uL 0.01-0.09 = 704-7) Lab Interpretation Abnormal (test code = 66699-6) [facility] GLUCOSE (AUTOMATED)2020-11-08 20:30:00 Test Item Value Reference Range Interpretation Comments POCT GLU (test code = 2234709091) 181 mg/dL 70-110 H Lab Interpretation (test code = Abnormal 23924-9) [facility] (NA, K, CL, CO2, GLUCOSE, BUN, CREATININE, CA)2020-11-08 18:48:00 Test Item Value Reference Range Interpretation Comments NA (test code = 134 mmol/L 135-145 L 3160734218) K (test code = 4.0 mmol/L 3.5-5 6348294114) CL (test code = 96 mmol/L 98-108 L 6521125547) CO2 TOTAL (test code = 29 mmol/L 23-31 1817207890) AGAP (test code = 2-16 0027693846) BUN (test code = 10 mg/dL 7-23 7159699021) GLUCOSE (test code = 368 mg/dL 70-110 H 4833900045) CREATININE (test code = 0.58 mg/dL 0.6-1.25 L 9294307952) CALCIUM (test code = 9.1 mg/dL 8.6-10.6 7543007876) eGFR Calculation mL/min/1.73m2 (Non-) (test code = 3423373078) eGFR Calculation mL/min/1.73m2 () (test code = 4159368756) RAFAEL (test code = RAFAEL) Association of [...] tests). Lab Interpretation Abnormal (test code = 89645-1) [facility] (ALB, T.PRO, BILI T, BU/BC, ALT, AST, ALK PHOS)2020-11-08 18:48:00 Test Item Value Reference Range Interpretation Comments TOTAL BILI (test code = 7604883215) 0.8 mg/dL 0.1-1.1 BILI UNCON (test code = 9674253449) 0.8 mg/dL 0.1-1.1 BILI CONJ (test code = 9415226712) 0.0 mg/dL 0-0.3 T PROTEIN (test code = 5612786186) 7.8 g/dL 6.3-8.2 ALBUMIN (test code = 0575544831) 4.7 g/dL 3.5-5 ALK PHOS (test code = 0455975604) 147 U/L 34-122 H ALTv (test code = 1742-6) 48 U/L 5-50 AST(SGOT) (test code = 8934291396) 42 U/L 13-40 H Lab Interpretation (test code = Abnormal 71752-0) [facility] [id number] 18:48:00 Test Item Value Reference Range Interpretation Comments LIPASE (test code = 8663930470) 27 U/L 0-220 Lab Interpretation (test code = Normal 19034-1) [facility]21[facility]06 18:39:00 Test Item Value Reference Range Interpretation Comments APPEARANCE (test code = Clear Clear 8547154889) COLOR (test code = Yellow Yellow 3551349885) PH (test code = 4.8-8.0 1583254419) SP GRAVITY (test code = 1.003-1.030 H 0387075021) GLU U QUAL (test code = 500 mg/dL Normal A 8588185676) BLOOD (test code = Negative Negative 9304285301) KETONES (test code = 5 mg/dL Negative A 1097050854) PROTEIN (test code = Negative Negative 2887-8) UROBILIN (test code = Normal Normal 0624767480) BILIRUBIN (test code = Negative Negative 3283118456) NITRITE (test code = Negative Negative 7559625776) LEUK ALYSHA (test code = Negative Negative 2341294861) RBC/HPF (test code = See_Comment [Autom ated message] 6706614500) The system [employer] generated this result transmit patricio reference range : 0 - 3 HPF. The refe rence range was not u sed to interpret th is result as normal/abnormal . WBC/HPF (test code = See_Comment [Autom ated message] 8290837092) The system [employer] generated this result transmit patricio reference range : 0 - 5 HPF. The refe rence range was not u sed to interpret th is result as normal/abnormal . BACTERIA (test code = Negative Negative 7056868093) Lab Interpretation (test Abnormal code = 16846-1) [facility] [id number] 18:36:00 Test Item Value Reference Range Interpretation [...] (test code = 33.7 fL 38.5-51.6 L 88458-3) RDW-CV (test code = 11.5 % 12.1-15.4 L 788-0) PLT (test code = See_Comment H [Automated 777-3) message] The sy stem which generated this result transmitted reference range : 150 - 328 10*3/ ?L. The reference r teresita was not used to interpret this result as normal/abnormal . MPV (test code = 10.2 fL 9.8-13 23380-2) NRBC/100 WBC (test See_Comment [Automat ed code = 4149980092) message] The system which generated this result transmitted reference range : 0.0 - 10.0 /100 WBCs. The refer ence range was not u sed to interpret th is result as normal/abnormal . NRBC x10^3 (test code <0.01 See_Comment [Auto mated = 5691004346) message] The s ystem which generated this result transmitted reference range : 10*3/?L. The reference range was not used to interpret this result as normal/abnormal . GRAN MAT (NEUT) % 60.3 % (test code = 770-8) IMM GRAN % (test code 0.70 % = 8197401597) LYMPH % (test code = 29.2 % 736-9) MONO % (test code = 4.7 % 5905-5) EOS % (test code = 3.9 % 713-8) BASO % (test code = 1.2 % 706-2) GRAN MAT x10^3(ANC) 6.44 10*3/uL 1.99-6.95 (test code = 5752485324) IMM GRAN x10^3 (test 0.07 10*3/uL 0-0.06 H code = 0795128026) LYMPH x10^3 (test code 3.12 10*3/uL 1.09-3.23 = 731-0) MONO x10^3 (test code 0.50 10*3/uL 0.36-1.02 = 742-7) EOS x10^3 (test code = 0.42 10*3/uL 0.06-0.53 711-2) BASO x10^3 (test code 0.13 10*3/uL 0.01-0.09 H = 704-7) Lab Interpretation Abnormal (test code = 99570-6) [facility]"
[2023-06-21 22:06] LABS: Absolute Lymphocytes (CBC) 2.4 K/uL (0.7-4.9); Hematocrit 47.8 % (39.6-49.0); Lymphocytes % 25.3 % (15.3-44.8); MCV 86.1 fL (80-100); MPV 9.5 fL (7.6-11.3); Platelets 306 thou/uL (152-406); RBC Red Blood Cell Count 5.55 M/uL (4.33-5.43)
[2023-06-21] MEDS ORDERED: NA CHLORIDE 0.9% 1,000 ML ONE ×2 (22:15→23:14)
[2023-06-21] MEDS ORDERED: FAMOTIDINE 20 MG/2 ML VIAL IV ONE (22:15)
[2023-06-21] MEDS ORDERED: ONDANSETRON 4 MG/2 ML VIAL ONE (22:15)
[2023-06-21] MEDS ORDERED: KETOROLAC 30 MG/ML INJ ONE (22:15)
[2023-06-21 22:24] LABS: Specific Gravity > 1.030 (1.005-1.030); Urine Bilirubin NEGATIVE (Negative); Urine Blood Negative (Negative); Urine Clarity Clear (Clear); Urine Color Colorless (Yellow); Urine Glucose 4+ (Over) (Negative); Urine Protein NEGATIVE (Negative); Urine Urobilinogen Normal (Normal); Urine pH 5.5 (5.0-7.0)
[2023-06-21 22:25] LABS: Albumin 3.9 g/dL (3.4-5.0); Bilirubin Total 1.3 mg/dL (0.2-1.0); Potassium 4.3 mEq/L (3.5-5.1); Protein, Total 7.9 g/dL (6.4-8.2)
[2023-06-21] MEDS ORDERED: INSULIN REGULAR (HUMAN) 100 UNIT/ML ONE (23:14)
[2023-06-21] MEDS ORDERED: DICYCLOMINE HCL 20 MG/2 ML AMP IM ONE (23:14)
[2023-06-21] MEDS ORDERED: METOCLOPRAMIDE 10 MG/2mL INJ ONE (23:14)
[2023-06-22] MEDS ORDERED: NA CHLORIDE 0.9% 1,000 ML ONE (00:51)
[2023-06-22] MEDS ORDERED: INSULIN REGULAR (HUMAN) 100 UNIT/ML ONE (00:51)
--- NOTE | 2023-06-22 02:32 | ER ---
Nurse's Notes [facility] Name: Jimenez Patrick Age: 27 yrs Sex: Male : 1995 Arrival Date: 06/21/2023 Time: 21:36 Bed 12 Private MD: Diagnosis: Other chronic pancreatitis;Diabetes mellitus due to underlying condition with hyperglycemia Presentation: 06/21 21:53 Chief complaint: Patient states: he has been out of insulin for approx one week. ap3 patient also complains of abdominal pain 02/12. patient denies nausea and vomiting at this time. Coronavirus screen: At this time, the client does not indicate any symptoms associated with coronavirus-19. Ebola Screen: No symptoms or risks identified at this time. Initial Sepsis Screen: Does the patient meet any 2 criteria? Yes Does the patient have a suspected source of infection? Yes: Acute abdominal pain. Risk Assessment: Do you want to hurt yourself or someone else? Patient reports no desire to harm self or others. Onset of symptoms was June 14, 2023. 21:53 Method Of Arrival: Ambulatory ap3 21:53 Acuity: MOSES 3 ap3 Triage Assessment: 21:55 General: Appears in no apparent distress. Behavior is calm, cooperative, appropriate ap3 for age. Pain: Complains of pain in abdomen Pain currently is 5 out of 10 on a pain scale. Neuro: Level of Consciousness is awake, alert, obeys commands. Cardiovascular: Patient's skin is warm and dry. Respiratory: Airway is patent Respiratory effort is even, unlabored, Respiratory pattern is regular, symmetrical. GI: Reports lower abdominal pain, upper abdominal pain. Historical: - Allergies: 21:55 NKA; ap3 - PMHx: 21:55 Chronic Pancreatitis; Diabetes - IDDM; ap3 - PSHx: 21:55 Cholecystectomy; stents x 2 in pancreas; I\T\D; ap3 - Immunization history:: Client reports receiving the 2nd dose of the Covid vaccine. - Social history:: Smoking status: Patient denies any tobacco usage or history of. Screenin:55 [facility] ED Fall Risk Assessment (Adult) History of falling in the last 3 months, ap3 including since admission No falls in past 3 months (0 pts). Abuse screen: Denies threats or abuse. Nutritional screening: No deficits noted. Tuberculosis screening: No symptoms or risk factors identified. Assessment: 06/22 00:42 Reassessment: Patient appears in no apparent distress at this time. Patient and/or as6 family updated on plan of care and expected duration. Pain level reassessed. Patient is alert, oriented x 3, equal unlabored respirations, skin warm/dry/pink. no complaints or concerns at this time. 02:06 Reassessment: Patient appears in no apparent distress at this time. Patient and/or as6 family updated on plan of care and expected duration. Pain level reassessed. Patient is alert, oriented x 3, equal unlabored respirations, skin warm/dry/pink. Vital Signs: 06/21 21:53 BP 128 / 93; Pulse 113; Resp 18; Temp 98.4(O); Pulse Ox 99% ; Weight 95.25 kg; Pain ap3 02/12; 06/22 00:41 BP 117 / 89; Pulse 79; Resp 16 S; Pulse Ox 100% on R/A; as6 02:05 BP 113 / 85; Pulse 72; Resp 18 S; Pulse Ox 100% on R/A; as6 06/21 21:53 Pain Scale: Adult ap3 ED Course: 06/21 21:40 Patient arrived in ED. jj6 21:41 Luis Ramirez PA is PHCP. cp 21:41 Nas Tovar MD is Attending Physician. cp 21:55 Triage completed. ap3 21:56 Arm band placed on right wrist. ap3 21:56 Patient has correct armband on for positive identification. Placed in gown. Bed in low ap3 position. Call light in reach. Side rails up X2. Pulse ox on. NIBP on. 21:56 Initial lab(s) drawn, by me, sent to lab. Inserted saline lock: 20 gauge in left cm10 forearm, using aseptic technique. Blood collected. 22:10 Urinalysis w/ reflexes Sent. cm10 23:[address] back [address]. cm10 23:25 Abdomen In Process Unspecified. EDMS 06/22 02:36 No provider procedures requiring assistance completed. IV discontinued, intact, as6 bleeding controlled, No redness/swelling at site. Pressure dressing applied. 02:37 Provided Education on: follow up. as6 Administered Medications: 06/21 22:09 Drug: Ondansetron IVP 4 mg IVP once; over 2 minutes Route: IVP; Site: left forearm; cm10 23:11 Follow up: Response: No adverse reaction cm10 22:09 Drug: Famotidine IVP 20 mg IVP once; dilute with 10 mL 0.9% NaCl; give over 2 minutes cm10 Route: IVP; Site: left forearm; 23:11 Follow up: Response: No adverse reaction cm10 22:09 Drug: NS 0.9% IV 1000 ml IV at 1 bolus Per protocol; 1000 mL bolus Route: IV; Rate: 1 cm10 bolus; Site: left forearm; 23:11 Follow up: Response: No adverse reaction; IV Status: Completed infusion; IV Intake: cm10 1000ml 22:09 Drug: Ketorolac IVP 15 mg IVP once Route: IVP; Site: left forearm; cm10 23:11 Follow up: Response: No adverse reaction cm10 23:10 Drug: Insulin Regular Human IVP 10 units IVP once {Co-Signature: ap3 (Dorie Cates cm10 RN).} Route: IVP; Site: left forearm; 06/22 00:12 Follow up: Response: No adverse reaction; Blood sugar is lowered cm10 06/21 23:11 Drug: NS 0.9% IV 1000 ml IV at 1 bolus Per protocol; 1000 mL bolus Route: IV; Rate: 1 cm10 bolus; Site: left forearm; 06/22 02:32 Follow up: Response: No adverse reaction; IV Status: Completed infusion; IV Intake: as6 1000ml 06/21 23:11 Drug: Dicyclomine IM 20 mg IM once Route: IM; Site: left vastus lateralis; cm10 06/22 00:12 Follow up: Response: No adverse reaction cm10 06/21 23:12 Drug: metoCLOPramide IVP 10 mg IVP once; over 1 to 2 minutes Route: IVP; Site: left cm10 forearm; 06/22 00:12 Follow up: Response: No adverse reaction cm10 00:42 Drug: Insulin Regular Human IVP 10 units IVP once {Co-Signature: rv (Jairon Dennis as6 RN).} Route: IVP; Site: left antecubital; 02:32 Follow up: Response: No adverse reaction; Blood sugar is lowered as6 00:42 Drug: NS 0.9% IV 1000 ml IV at 1 bolus Per protocol; 1000 mL bolus Route: IV; Rate: 1 as6 bolus; Site: left antecubital; 02:32 Follow up: Response: No adverse reaction; IV Status: Completed infusion; IV Intake: as6 1000ml Medication: 00:42 VIS not applicable for this client. as6 Point of Care Testing: Blood Glucose: 02:05 Blood Glucose: 171 mg/dL; as6 Ranges: Intake: 06/21 23:11 IV: 1000ml; Total: 1000ml. cm10 06/22 02:32 IV: 1000ml; Total: 2000ml. as6 02:32 IV: 1000ml; Total: 3000ml. as6 Outcome: 02:31 Discharge ordered by MD. cp 02:37 Discharged to home ambulatory, with significant other, as6 02:37 Condition: stable 02:37 Discharge instructions given to patient, Instructed on discharge instructions, follow up and referral plans. medication usage, Demonstrated understanding of instructions, follow-up care, medications, Prescriptions given X 1, 02:37 Patient left the ED. as6 Signatures: Dispatcher [employer] EDMS Luis Ramirez PA PA cp Prokisch, Amanda, RN RN ap3 Kaye Sanders6 Po Frazier RN RN as6 Rachel Woodward RN RN cm10 Dorie Cates RN ap3 Jairon Dennis RN rv
--- NOTE | 2023-06-22 02:32 | EDPHYS ---
Physician Documentation [facility] Name: Jimenez Patrick Age: 27 yrs Sex: Male : 1995 Arrival Date: 06/21/2023 Time: 21:36 Bed 12 Private MD: ED Physician Nas Tovar HPI: 06/21 22:00 This 27 yrs old Male presents to ER via Ambulatory with complaints of cp Abdominal Pain, H/O Pancreatitis. 22:00 The patient presents with abdominal pain. Associated signs and symptoms: Pertinent cp positives: abdominal pain, Pertinent negatives: blood in stools, chest pain, constipation, diarrhea, fever, vomiting blood. Severity of pain: in the emergency department the pain is unchanged despite home interventions. The patient has experienced similar episodes in the past, chronically, patient with PMHX significant for chronic pancreatitis. 22:00 Patient reports running out of prescribed insulin about 1 week ago. cp Historical: - Allergies: 21:55 NKA; ap3 - PMHx: 21:55 Chronic Pancreatitis; Diabetes - IDDM; ap3 - PSHx: 21:55 Cholecystectomy; stents x 2 in pancreas; I\T\D; ap3 - Immunization history:: Client reports receiving the 2nd dose of the Covid vaccine. - Social history:: Smoking status: Patient denies any tobacco usage or history of. ROS: 22:05 Constitutional: Negative for body aches, chills, fever, poor PO intake, cp 22:05 Eyes: Negative for injury, pain, redness, and discharge, cp 22:05 ENT: Negative for drainage from ear(s), ear pain, sore throat, difficulty swallowing, difficulty handling secretions, 22:05 Cardiovascular: Negative for chest pain, edema, palpitations, 22:05 Respiratory: Negative for cough, shortness of breath, wheezing, 22:05 Abdomen/GI: Positive for abdominal pain, nausea and vomiting, Negative for hematemesis, black/tarry stool, rectal bleeding, 22:05 Neuro: Negative for altered mental status, dizziness, headache, syncope, weakness, 22:05 All other systems are negative, Exam: 22:10 Constitutional: The patient appears in no acute distress, alert, awake, cp non-diaphoretic, non-toxic, well developed, well nourished, uncomfortable, 22:10 Head/Face: Normocephalic, atraumatic. cp 22:10 Eyes: Periorbital structures: appear normal, Conjunctiva: normal, no exudate, no injection, Sclera: no appreciated abnormality, Lids and lashes: appear normal, bilaterally, 22:10 ENT: External ear(s): are unremarkable, Nose: is normal, Mouth: Lips: moist, Oral mucosa: pink and intact, moist, Posterior pharynx: is normal, airway is patent, no erythema, no exudate, 22:10 Chest/axilla: Inspection: normal, 22:10 Cardiovascular: Rate: tachycardic, Rhythm: regular, 22:10 Respiratory: the patient does not display signs of respiratory distress, Respirations: normal, no use of accessory muscles, no retractions, labored breathing, is not present, Breath sounds: are clear throughout, no decreased breath sounds, no stridor, no wheezing, 22:10 Abdomen/GI: Inspection: abdomen appears normal, Bowel sounds: active, all quadrants, Palpation: soft, in all quadrants, moderate abdominal tenderness, in the epigastric area, right upper quadrant and left upper quadrant, rebound tenderness, is not appreciated, 22:10 Back: CVA tenderness, is absent, 22:10 Neuro: Orientation: to person, place \T\ time. Mentation: is normal, Motor: moves all fours, strength is normal, Sensation: is normal, Vital Signs: 21:53 BP 128 / 93; Pulse 113; Resp 18; Temp 98.4(O); Pulse Ox 99% ; Weight 95.25 kg; Pain ap3 02/12; 06/22 00:41 BP 117 / 89; Pulse 79; Resp 16 S; Pulse Ox 100% on R/A; as6 02:05 BP 113 / 85; Pulse 72; Resp 18 S; Pulse Ox 100% on R/A; as6 06/21 21:53 Pain Scale: Adult ap3 MDM: 06/21 21:49 Patient medically screened. cp 22:00 Differential diagnosis: appendicitis, gastritis, Peptic Ulcer Disease, Perf. Duodenal cp Ulcer, Ureterolithiasis, urinary tract infection, acute on chronic pancreatitis, sepsis, DKA. 06/22 02:30 Data reviewed: vital signs, nurses notes, lab test result(s), radiologic studies, CT cp scan. 02:30 Consideration of Admission/Observation Escalation of care including cp admission/observation considered. I considered the following discharge prescriptions or medication management in the emergency department Medications were administered in the Emergency Department. See MAR. Care significantly affected by the following chronic conditions: Diabetes. Care significantly affected by the following Social Determinants of Health: Poor access to healthcare and/or lack of insurance. Counseling: I had a detailed discussion with the patient and/or guardian regarding the historical points, exam findings, and any diagnostic results supporting the discharge/admit diagnosis, lab results, radiology results, to return to the emergency department if symptoms worsen or persist or if there are any questions or concerns that arise at home. Response to treatment: the patient's symptoms have markedly improved after treatment, and as a result, I will discharge patient. Special discussion: Based on the patient's Hx, exam, and Dx evaluation, there is no indication for emergent surgery or inpatient Tx. It is understood by the patient/guardian that if the Sx's persist or worsen they need to return immediately for re-evaluation. 06/21 21:54 Order name: CBC with Diff; Complete Time: 22:26 06/21 22:31 Interpretation: Normal except: RBC 5.55. 06/21 21:54 Order name: CMP; Complete Time: 22:29 cp 06/21 22:29 Interpretation: Normal except: NA 121; CL 86; ANION GAP 15.3; GLUC 940; BUN 19; CRE cp 1.54; GFR 63; ALK 192; BILIT 1.3; GLOB 4.0; A/G 1.0. 06/21 21:54 Order name: Lipase; Complete Time: 22:29 cp 06/21 21:54 Order name: Urinalysis w/ reflexes; Complete Time: 22:26 06/21 22:36 Interpretation: Normal except: Urine SG > 1.030; UGLUC 4+ (Over); UKET 1+. 06/21 22:06 Order name: Glucose, Ancillary Testing; Complete Time: 22:26 EDMS 06/21 23:18 Order name: Glucose, Ancillary Testing; Complete Time: 23:25 EDMS 06/22 00:23 Order name: Glucose, Ancillary Testing; Complete Time: 00:29 EDMS 06/22 00:29 Interpretation: Reviewed. 06/22 02:14 Order name: Glucose, Ancillary Testing EDMS 06/21 22:58 Order name: Abdomen EDMS 06/21 21:54 Order name: IV Saline Lock; Complete Time: 21:57 cp 06/21 21:54 Order name: Labs collected and sent; Complete Time: 21:57 cp Administered Medications: 06/21 22:09 Drug: Ondansetron IVP 4 mg IVP once; over 2 minutes Route: IVP; Site: left forearm; cm10 23:11 Follow up: Response: No adverse reaction cm10 22:09 Drug: Famotidine IVP 20 mg IVP once; dilute with 10 mL 0.9% NaCl; give over 2 minutes cm10 Route: IVP; Site: left forearm; 23:11 Follow up: Response: No adverse reaction cm10 22:09 Drug: NS 0.9% IV 1000 ml IV at 1 bolus Per protocol; 1000 mL bolus Route: IV; Rate: 1 cm10 bolus; Site: left forearm; 23:11 Follow up: Response: No adverse reaction; IV Status: Completed infusion; IV Intake: cm10 1000ml 22:09 Drug: Ketorolac IVP 15 mg IVP once Route: IVP; Site: left forearm; cm10 23:11 Follow up: Response: No adverse reaction cm10 23:10 Drug: Insulin Regular Human IVP 10 units IVP once {Co-Signature: [email or web address] (Dorie Cates cm10 RN).} Route: IVP; Site: left forearm; 06/22 00:12 Follow up: Response: No adverse reaction; Blood sugar is lowered cm10 06/21 23:11 Drug: NS 0.9% IV 1000 ml IV at 1 bolus Per protocol; 1000 mL bolus Route: IV; Rate: 1 cm10 bolus; Site: left forearm; 06/22 02:32 Follow up: Response: No adverse reaction; IV Status: Completed infusion; IV Intake: as6 1000ml 06/21 23:11 Drug: Dicyclomine IM 20 mg IM once Route: IM; Site: left vastus lateralis; cm10 06/22 00:12 Follow up: Response: No adverse reaction cm10 06/21 23:12 Drug: metoCLOPramide IVP 10 mg IVP once; over 1 to 2 minutes Route: IVP; Site: left cm10 forearm; 06/22 00:12 Follow up: Response: No adverse reaction cm10 00:42 Drug: Insulin Regular Human IVP 10 units IVP once {Co-Signature: rv (Jairon Dennis as6 RN).} Route: IVP; Site: left antecubital; 02:32 Follow up: Response: No adverse reaction; Blood sugar is lowered as6 00:42 Drug: NS 0.9% IV 1000 ml IV at 1 bolus Per protocol; 1000 mL bolus Route: IV; Rate: 1 as6 bolus; Site: left antecubital; 02:32 Follow up: Response: No adverse reaction; IV Status: Completed infusion; IV Intake: as6 1000ml Point of Care Testing: Blood Glucose: 02:05 Blood Glucose: 171 mg/dL; as6 Ranges: Critical Glucose Levels:Adult <50 mg/dl or >400 mg/dl <40 mg/dl or >180 mg/dl Disposition Summary: 06/22/23 02:31 Discharge Ordered Notes: Location: Home cp Problem: chronic cp Symptoms: have improved cp Condition: Stable cp Diagnosis - Other chronic pancreatitis cp - Diabetes mellitus due to underlying condition with hyperglycemia cp Followup: cp - With: Private Physician - When: 1 - 2 days - Reason: Recheck today's complaints Discharge Instructions: - Discharge Summary Sheet cp - Hyperglycemia cp - Daily Diabetes Mellitus Record cp - Blood Glucose Monitoring, Adult cp - Diabetes Mellitus and Nutrition, Adult cp - Chronic Pancreatitis cp Forms: - Medication Reconciliation Form cp - Thank You Letter cp - Antibiotic Education cp - Prescription Opioid Use cp - Patient Portal Instructions cp - Leadership Thank You Letter cp Prescriptions: - Reglan 10 mg Oral Tablet - take 1 tablet ORAL route every 6 hours take 30 minutes before meals and at cp bedtime; 20 tablet; Refills: 0, Product Selection Permitted Addendum: 06/23/2023 03:03 Co-signature as Attending Physician, Nas Tovar MD. e c2 Signatures: Dispatcher [employer] EDMS Luis Ramirez PA PA cp Dorie Cates RN RN ap3 Po Frazier RN RN as6 Rachel Woodward RN RN cm10 Nas Tovar MD MD ec2 Dorie Cates RN ap3 Jairon Dennis RN rv Corrections: (The following items were deleted from the chart) 06/21 22:58 22:31 Abdomen Pelvis W Con+[id number].[email or web address] ordered. EDIA EDMS 06/22 17:22 06/21 22:00 Associated signs and symptoms: Pertinent positives: nausea and vomiting, cp Pertinent negatives: constipation, diarrhea, fever, vomiting blood, cp
[2023-06-22 03:58] LABS: Potassium 3.9 mEq/L (3.5-5.1)
[2023-06-22 05:36] VITALS: TEMP 98.4
[2023-06-22 06:23] VITALS: BP 113/85; O2SAT 100
--- NOTE | 2023-06-22 14:43 | RAD REPORT ---
EXAM DESCRIPTION: CT Abdomen and Pelvis Without Intravenous Contrast CLINICAL HISTORY: The patient is 27 years old and is Male; ABD PAIN TECHNIQUE: Axial computed tomography images of the abdomen and pelvis without intravenous contrast. Sagittal and coronal reformatted images were created and reviewed. This CT exam was performed usi ng one or more of the following dose reduction techniques: automated exposure control, adjustment o f the mA and/or kV according to patient size, and/or use of iterative reconstruction technique. COMPARISON: No relevant prior studies available. FINDINGS: Lung bases: Unremarkable. No mass. No consolidation. ABDOMEN: Liver: Hepatomegaly with diffuse hepatic steatosis. Gallbladder and bile ducts: Gallbladder is surgically absent. No ductal dilation. Pancreas: Coarse calcification in the pancreas suggestive of chronic pancreatitis. No ductal dilation. Spleen: Unremarkable. No splenomegaly. Adrenals: Unremarkable. No mass. Kidneys and ureters: Unremarkable. No obstructing stones. No hydronephrosis. Stomach and bowel: Unremarkable. No obstruction. No mucosal thickening. PELVIS: Appendix: No findings to suggest acute appendicitis. Bladder: Bladder is distended. Reproductive: Unremarkable as visualized. ABDOMEN and PELVIS: Intraperitoneal space: Unremarkable. No free air. No significant fluid collection. Bones/joints: No acute fracture. No dislocation. Soft tissues: Unremarkable. Vasculature: Unremarkable. No abdominal aortic aneurysm. Lymph nodes: Unremarkable. No enlarged lymph nodes. IMPRESSION: 1. Coarse calcification in the pancreas suggestive of chronic pancreatitis. 2. Gallbladder is surgically absent. 3. Hepatomegaly with diffuse hepatic steatosis. Electronically signed by: Jono Ashley MD 06/22/2023 12:35 AM CDT Due to temporary technical issues with the PACS/Fluency reporting system, reports are being signed by the in house radiologists without review as a courtesy to insure prompt reporting. The interpreting radiologist is fully responsible for the content of the report.
== END 2023-06-22 02:37 | disposition home or self-care (01) ==
LOC: ER 21:36
DX: K86.1 Other chronic pancreatitis (principal); E08.65 Diabetes mellitus due to underlying condition with hyperglycemia
CPT/HCPCS: 36415; 74176; 80048; 80053; 81003; 82947; 83690; 85025; J0500; J1815; J2405; J2765; J7030

== ENCOUNTER → 2023-09-14 | Emergency (ER) | payer OTHER, SELFPAY ==
[~2023-09-14] MED LIST: FAMOTIDINE 20 MG/2 ML VIAL IV ONE; MORPHINE 4 MG/ML SYR ONE; NA CHLORIDE 0.9% 1,000 ML ONE; ONDANSETRON 4 MG/2 ML VIAL ONE
--- OUTSIDE RECORDS SUMMARY | 2023-09-14 23:48 | XMS REPORT | Continuity of Care Document ---
Author Name Unknown Address [address] 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 Name Role Phone PCP, PATIENT DOES NOT HAVE A Primary Care Physic adry Unavailable MICHAEL BRAVO Attending Clinician Unavailable Nabil Almanzar RN Attending Clinician Unavail able LAZARO HUNTER Attending Clinician Unavailable Augustin Kincaid Attending Clinician [phone] Esa Ko DO Attending Clinician [phone] Lazaro Hunter MD Attending Clinician [phone] Syeda Alberts Attending Clinician [phone] SYEDA PEARCE Attending Clinician Unavailable Doctor Unassigned, [place] Attending Clinician U navailable LAZARO HUNTER Admitting Clinician Unavailable Lazaro Hunter MD Admitting Clinician [phone] Payers Payer Name Policy Type Policy Number Effective Date Expirati on Date Source MICHELET SAENZ [employer]: [employer] 94 ON STAND 9 [id number] 2023 00:00:00 Problems Condition Name Condition Details Condition Category Status Onset Date Resolution Date Last Treatment Date Treating Clinician Comments Source Acute on chronic pancreatit is Acute on chronic pancreatit is Disease Active 09-12 00:00: 00 [facility] Epigastric pain Epigastric pain Disease Active 09-11 00:00: 00 [facility] Obesity (BMI 30-39.9) Obesity (BMI 30-39.9) Disease Active 04-16 00:00: 00 [facility] Mesenteric adenitis Mesenteric adenitis Disease Active 2009-09 00:00: 00 [facility] Pancreatit is Pancreatit is Disease Active 2009-09 00:00: 00 [facility] Abdominal pain Abdominal pain Disease Active 2009-09 00:00: 00 [facility] Other acne Other acne Disease Active 04-13 00:00: 00 [facility] Viral warts Viral warts Disease Active 04-13 00:00: 00 Overview: Formattin g of this note might be different from the original. 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 [facility] Allergies, Adverse Reactions, Alerts Allergy Name Allergy Type Status Severity Reaction(s) Onset Date Inactive Date Treating Clinician Comments Source NO KNOWN ALLERGIE S Drug Class Active [facility] Social History Social Habit Start Date Stop Date Quantity Comments Source History of tobacco use Passive smoker [facility] History SDOH Social Connections Get Together [facility] History SDOH Social Connections [facility] History SDOH Social Connections Membership [facility] History SDOH Social Connections Meetings [facility] History SDOH Physical Activity MPS 2022-09-13 00:00:00 2022-09-13 00:00:00 3 [facility] History SDOH Financial 2022-09-13 00:00:00 2022-09-13 00:00:00 5 [facility] History SDOH Food Worry 2022-09-13 00:00:00 2022-09-13 00:00:00 1 [facility] History SDOH Food Scarcity 2022-09-13 00:00:00 2022-09-13 00:00:00 1 [facility] History SDOH Transport Med 2022-09-13 00:00:00 2022-09-13 00:00:00 2 [facility] History SDOH Transport Non-Med 2022-09-13 00:00:00 2022-09-13 00:00:00 2 [facility] History SDOH Alcohol Frequency 2022-09-13 00:00:00 2022-09-13 00:00:00 1 [facility] History SDOH Alcohol Std Drinks 2022-09-13 00:00:00 2022-09-13 00:00:00 0 [facility] History SDOH Alcohol Binge 2022-09-13 00:00:00 2022-09-13 00:00:00 1 [facility] History SDOH Social Connections Phone 2022-09-13 00:00:00 2022-09-13 00:00:00 5 [facility] History SDOH Social Connections Living 2022-09-13 00:00:00 2022-09-13 00:00:00 5 [facility] History SDOH Physical Activity DPW 2022-09-13 00:00:00 2022-09-13 00:00:00 4 [facility] Tobacco use and exposure 2022-09-12 00:00:00 2022-09-12 00:00:00 Smokeless tobacco non-user [facility] Alcohol intake 2022-09-12 00:00:00 2022-09-12 00:00:00 Ex-drinker (finding) [facility] Exposure to SARS-CoV-2 (event) 2022-09-01 00:00:00 2022-09-11 13:58:00 Not sure [facility] Education 2022-09-11 00:00:00 2022-09-11 00:00:00 13 [facility] Sex Assigned At 1995 00:00:00 1995 00:00:00 [facility] Smoking Status Start Date Stop Date Source Ex-smoker 2022-09-12 00:00:00 2022-09-12 [facility] Medications Ordered Medication Name Filled Medication Name Start Date Stop Date Current Medication? Ordering Clinician Indication Dosage Frequency Signature (SIG) Comments Components Source insulin NPH and regular human 70-30 (NOVOLIN 70/30 U-100 INSULIN) 100 unit/mL (70-30) injection - 12:13: 02 09-14 00:00 :00 No 60U inject 60 Units under the skin 2 (two) times daily before breakfast and dinner. [facility] insulin NPH and regular human 70-30 (NOVOLIN 70/30 U-100 INSULIN) 100 unit/mL (70-30) injection 09-14 00:00: 00 Yes [id number] 60U inject 60 Units under the skin 2 (two) times daily before breakfast and dinner. [facility] insulin NPH and regular human 70-30 (NOVOLIN 70/30 U-100 INSULIN) 100 unit/mL (70-30) injection 09-14 00:00: 00 Yes [id number] 60U inject 60 Units under the skin 2 (two) times daily before breakfast and dinner. [facility] atorvastati n 40 mg tablet 09-14 00:00: 00 10-15 05:59 :00 No [id number] 40mg Take 1 tablet by mouth at bedtime for 30 days. [facility] lisinopriL 10 mg tablet 09-14 00:00: 00 10-15 05:59 :00 No [id number] 10mg Take 1 tablet by mouth in the morning and 1 tablet in the evening. Do all this for 30 days. [facility] atorvastati n 40 mg tablet 09-14 00:00: 00 10-15 05:59 :00 No [id number] 40mg Take 1 tablet by mouth at bedtime for 30 days. [facility] lisinopriL 10 mg tablet 09-14 00:00: 00 10-15 05:59 :00 No [id number] 10mg Take 1 tablet by mouth in the morning and 1 tablet in the evening. Do all this for 30 days. [facility] morpHINE (4 mg/mL) injection 4 mg 09-13 09:53: 10 Yes 4mg 4 mg, Slow IV Push, Q4HPRN, Starting on Tue09/13/22 at 0353, Until Discontinu ed, Routine, Pain (scale 7-10) [facility] atorvastati n (LIPITOR) tablet 40 mg 09-13 03:00: 00 Yes 40mg 40 mg, Oral, QHS, First dose on 09/12/22 at 2100, Until Discontinu ed, Routine [facility] lisinopriL (PRINIVIL,Z ESTRIL) tablet 10 mg 09-12 14:45: 00 Yes 10mg 10 mg, Oral, BID, First dose (after last modificati on) on 09/12/22 at 0845, Until Discontinu ed, Routine [facility] KCL (KLOR-CON M20) tablet 40 mEq 09-12 13:45: 00 09-12 14:15 :00 No 40meq 40 mEq, Oral, ONCE, 1 dose, On 09/12/22 at 0745, Routine [facility] potassium chloride in water 10 mEq/100 mL RTU 10 mEq 09-12 13:00: 00 09-12 16:20 :00 No 10meq 10 mEq, IV Piggyback, Q1H, 2 doses, First dose on 09/12/22 at 0700, Last dose on 09/12/22 at 0800, Administer over 60 Minutes, [facility] (PRINIVIL,Z ESTRIL) tablet 5 mg 09-12 05:00: 00 09-12 14:35 :46 No 5mg 5 mg, Oral, BID, First dose on 09/11/22 at 2300, Until Discontinu ed, [facility] lact[facility] 1,000 mL 09-12 03:15: 00 Yes 1000mL at 150 mL/hr, 1,000 mL, IV Infusion, CONTINUOUS , Starting on 09/11/22 at 2115, Until Discontinu ed, Routine [facility] Sliding Scale Insulin - Lispro (HumaLOG) + Fsbg Testing 09-11 23:00: 00 Yes Subcutaneo us, TID MEALS+HS, First dose on 09/11/22 at 1700, Until Discontinu ed, Routine [facility] enoxaparin (LOVENOX) injection 40 mg 09-11 23:00: 00 Yes 40mg 40 mg, Subcutaneo us, DAILY, First dose on 09/11/22 at 1700, Until Discontinu ed, Routine [facility] lactated ringers IV infusion 1,000 mL 09-11 19:15: 00 09-12 03:05 :27 No 1000mL at 125 mL/hr, 1,000 mL, IV Infusion, CONTINUOUS , Starting on 09/11/22 at 1315, Until 09/11/22 at 2105, [facility] lactated ringers IV infusion 1,000 mL 09-11 19:00: 00 09-11 19:56 :58 No 1000mL at 999 mL/hr, 1,000 mL, Intravenou s, ONCE, 1 dose, On 09/11/22 at 1300, [facility] NaCl 0.9% (NS) IV infusion 1,000 mL 09-11 18:15: 00 09-11 19:00 :00 No 1000mL at 999 mL/hr, Intravenou s, ONCE, 1 dose, On 09/11/22 at 1215, [facility] FENTanyl PF (SUBLIMAZE (PF)) injection 50 mcg 09-11 18:05: 00 09-11 18:10 :00 No 50ug 50 mcg, Slow IV Push, ONCE, 1 dose, On 09/11/22 at 1215, [facility] ondansetron (ZOFRAN (PF)) injection 4 mg 09-11 18:05: 00 09-11 18:09 :00 No 4mg 4 mg, Slow IV Push, ONCE, 1 dose, On 09/11/22 at 1215, [facility] glucagon (GLUCAGEN DIAGNOSTIC KIT) injection 1 mg 09-11 18:04: 12 Yes 1mg 1 mg, Intramuscu lar, PRN, Starting on 09/11/22 at 1204, Until Discontinu ed, MARITA, Blood Glucose < or = 70 mg/dL and patient is unable to swallow or has mental changes. [facility] dextrose 50 % in water (D50W) injection 25 mL 09-11 18:04: 12 Yes 25mL 25 mL, Slow IV Push, PRN, Starting on 09/11/22 at 1204, Until Discontinu ed, MARITA, Blood Glucose < or = 70 mg/dL and patient is unable to swallow or has mental status changes. [facility] ondansetron (ZOFRAN (PF)) injection 4 mg 09-11 18:04: 03 Yes 4mg 4 mg, Slow IV Push, Q6HPRN, Starting on 09/11/22 at 1204, Until Discontinu ed, Routine, Nausea and Vomiting (N/V) [facility] morpHINE (2 mg/mL) injection 2 mg 09-11 18:03: 52 09-12 18:02 :52 No 2mg 2 mg, Slow IV Push, Q4HPRN, Starting on 09/11/22 at 1203, Until 09/12/22 at 1202, Routine, Pain (scale 7-10) [facility] HYDROcodone -acetaminop hen (NORCO 5) 5-325 mg tablet 1 tablet 09-11 18:03: 48 09-13 18:02 :48 No 1{tbl} 1 tablet, Oral, Q6HPRN, Starting on 09/11/22 at 1203, Until 09/13/22 at 1202, Routine, Pain (scale 4-6) [facility] acetaminoph en (TYLENOL) tablet 650 mg 09-11 18:03: 39 Yes 650mg 650 mg, Oral, Q6HPRN, Starting on 09/11/22 at 1203, Until Discontinu ed, Routine, Pain (scale 1-3) [facility] insulin NPH and regular human 70-30 (70-30 U-100 INSULIN) 100 unit/mL (70-30) injection 60 Units 09-11 18:03: 00 09-11 18:54 :00 No 60U 60 Units, Subcutaneo us, ONCE, 1 dose, On 09/11/22 at 1215, [facility] FENTanyl PF (SUBLIMAZE (PF)) injection 50 mcg 09-11 16:38: 00 09-11 16:41 :00 No 50ug 50 mcg, Slow IV Push, ONCE, 1 dose, On 09/11/22 at 1045, [facility] iopamidol (ISOVUE 370-500 mL) injection 78 mL 09-11 16:35: 00 09-11 16:45 :00 No [id number] 78mL 78 mL, Intravenou s, ONCE, 1 dose, On 09/11/22 at 1045, Routine [facility] ondansetron (ZOFRAN (PF)) injection 4 mg 09-11 15:45: 00 09-11 15:50 :00 No [id number] 4mg 4 mg, Slow IV Push, ONCE, 1 dose, On 09/11/22 at 0945, [facility] famotidine (PEPCID (PF)) injection 20 mg 09-11 15:45: 00 09-11 15:50 :00 No [id number] 20mg 20 mg, Slow IV Push, ONCE, 1 dose, On 09/11/22 at 0945, [facility] NaCl 0.9% (NS) IV infusion 1,000 mL 09-11 15:33: 00 09-11 17:00 :00 No [id number] 1000mL at 999 mL/hr, Intravenou s, ONCE, 1 dose, On 09/11/22 at 0945, [facility] sodium chloride (NS) injection 5 mL 09-11 15:32: 59 Yes [id number] 5mL 5 mL, Intravenou s, PRN, Starting on 09/11/22 at 0932, Until Discontinu ed, Routine, IV line flushing [facility] maalox:diph enhydrAMINE :lidocaine 2 % viscous 1:1:1 (FIRST-MOUT HWASH BLM) oral suspension 15 mL 11-08 20:45: 00 11-08 20:39 :00 No 15mL 15 mL, Oral, ONCE, 1 dose, 11/08/20 at 1445, [facility] insulin regular human (HUMULIN R) injection 9 Units 11-08 20:30: 00 11-08 19:39 :00 No 9U 9 Units, Slow IV Push, ONCE, 1 dose, 11/08/20 at 1430, STAT [facility] ondansetron (ZOFRAN (PF)) injection 4 mg 11-08 19:45: 00 11-08 18:49 :00 No 4mg 4 mg, Slow IV Push, ONCE, 1 dose, 11/08/20 at 1345, [facility] morpHINE injection 4 mg 11-08 19:45: 00 11-08 18:49 :00 No 4mg 4 mg, Slow IV Push, ONCE, 1 dose, 11/08/20 at 1345, [facility] NaCl 0.9% (NS) bolus infusion 1,000 mL 11-08 19:30: 00 11-08 20:37 :00 No 1000mL at 999 mL/hr, 1,000 mL, IV Infusion, ONCE, 1 dose, 11/08/20 at 1330, [facility] NaCl 0.9% (NS) bolus infusion 1,000 mL 11-08 18:30: 00 11-08 19:39 :00 No 1000mL at 999 mL/hr, 1,000 mL, IV Infusion, ONCE, 1 dose, 11/08/20 at 1230, [facility] ondansetron (ZOFRAN ODT) 4 mg disintegrat ing tablet 11-08 00:00: 00 Yes [id number] 4mg Take 1 tablet by mouth every 8 (eight) hours as needed for Nausea and Vomiting (N/V). [facility] dicyclomine 20 mg tablet 11-08 00:00: 00 Yes [id number] 20mg Take 1 tablet by mouth 4 (four) times daily as needed for Abdominal pain. [facility] ondansetron (ZOFRAN ODT) 4 mg disintegrat ing tablet 11-08 00:00: 00 09-11 00:00 :00 No [id number] 4mg Take 1 tablet by mouth every 8 (eight) hours as needed for Nausea and Vomiting (N/V). [facility] dicyclomine 20 mg tablet 11-08 00:00: 00 09-11 00:00 :00 No [id number] 20mg Take 1 tablet by mouth 4 (four) times daily as needed for Abdominal pain. [facility] No known medications No Un brendan [facility] Vital Signs Vital Name Observation Time Observation Value Comments S ource Systolic blood pressure 2022-09-14 17:21:00 130 mm[Hg] [facility] Diastolic blood pressure 2022-09-14 17:21:00 93 mm[Hg] [facility] Heart rate 2022-09-14 17:21:00 87 /min [facility] Body temperature 2022-09-14 17:21:00 35.56 Zenaida [facility] Respiratory rate 2022-09-14 17:21:00 18 /min [facility] Oxygen saturation in Arterial blood by Pulse oximetry 2022-09-14 17:21:00 98 /min [facility] Body weight 2022-09-14 09:02:00 98.476 kg [facility] BMI 2022-09-14 09:02:00 32.06 kg/m2 [facility] Body height 2022-09-11 19:14:00 175.3 cm [facility] Systolic blood pressure 2020-11-08 21:00:00 136 mm[Hg] [facility] Diastolic blood pressure 2020-11-08 21:00:00 95 mm[Hg] [facility] Heart rate 2020-11-08 21:00:00 93 /min [facility] Respiratory rate 2020-11-08 21:00:00 16 /min [facility] Oxygen saturation in Arterial blood by Pulse oximetry 2020-11-08 21:00:00 98 /min [place] [facility] Body temperature 2020-11-08 18:12:00 36.44 Zenaida [facility] Body height 2020-11-08 18:12:00 175.3 cm [facility] Body weight 2020-11-08 18:12:00 92.987 kg [facility] BMI 2020-11-08 18:12:00 30.27 kg/m2 [facility] Procedures Procedure Date / Time Performed Performing Clinician Source POCT GLUCOSE (AUTOMATED) 2022-09-14 17:22:00 Lazaro Hunter [facility] LIPASE 2022-09-14 11:57:00 Michael Jung [facility] BASIC METABOLIC PANEL (NA, K, CL, CO2, GLUCOSE, BUN, CREATININE, CA) 2022-09-14 11:57:00 Michael Jung [facility] LIPID PANEL ([id number])(TOTAL CHOLESTEROL, TRIGLYCERIDES, HDL) 2022-09-14 11:57:00 Michael Jung [facility] CBC WITH DIFF 2022-09-14 11:57:00 Michael Jung [facility] POCT GLUCOSE (AUTOMATED) 2022-09-14 02:35:00 [facility] 2022-09-13 22:59:00 [facility] 2022-09-13 17:43[facility] 2022-09-13 13:30:00 Elsa [facility] BASIC METABOLIC PANEL (NA, K, CL, CO2, GLUCOSE, BUN, CREATININE, CA) 2022-09-13 09:26:00 Emy Hyde [facility] POCT GLUCOSE (AUTOMATED) 2022-09-12 22:34:00 [facility]) 2022-09-12 17:15:00 Elsa [facility] POCT GLUCOSE (AUTOMATED) 2022-09-12 13:44:00 Elsa [facility] MAGNESIUM 2022-09-12 09:07:00 [facility] HEPATIC FUNCTION PANEL ([id number]) (ALB,T.PRO,BILI T,BU/BC,ALT,AST,ALK PHOS) 2022-09-12 09:07:00 Elsa [facility] BASIC METABOLIC PANEL (NA, K, CL, CO2, GLUCOSE, BUN, CREATININE, CA) 2022-09-12 09:07:00 Emy Hyde [facility] LIPID PANEL ([id number])(TOTAL CHOLESTEROL, TRIGLYCERIDES, HDL) 2022-09-12 09:07:00 Elsa [facility] CBC WITH DIFF 2022-09-12 09:07:00 Emy Hyde [facility] POCT GLUCOSE (AUTOMATED) 2022-09-12 09:01:00 Eas Ko [facility] POCT GLUCOSE (AUTOMATED) 2022-09-12 02:38:00 Esa Ko [facility] POCT GLUCOSE (AUTOMATED) 2022-09-11 22:42:00 Esa Ko [facility] POCT GLUCOSE (AUTOMATED) 2022-09-11 18:57:00 Mateus [facility] POCT GLUCOSE(AGE >30DAYS) 2022-09-11 17:22:00 Mateus [facility] POCT GLUCOSE (AUTOMATED) 2022-09-11 17:21:[address] [facility] CT ABDOMEN PELVIS W CONTRAST 2022-09-11 16:38:00 Mateus [facility] POCT GLUCOSE (AUTOMATED) 2022-09-11 15:59:00 Mateus [facility] LIPASE 2022-09-11 15:48:00 Augustin Ignacio [facility] COMP. METABOLIC PANEL ([id number]) 2022-09-11 15:48:00 Mateus [facility] CBC WITH DIFF 2022-09-11 15:48:00 Augustin Ignacio [facility] GLYCOSYLATED HEMOGLOBIN (A1C) 2022-09-11 15:48:00 Esa Ko [facility] URINALYSIS 2022-09-11 15:46:00 Augustin Ignacio [facility] CONSENT/REFUSAL FOR DIAGNOSIS AND TREATMENT 2022-09-11 15:16:37 Doctor Unassigned, [place] [facility] POCT GLUCOSE (AUTOMATED) 2020-11-08 20:26:00 [facility] 2020-11-08 18:29:00 [facility] HEPATIC FUNCTION PANEL ([id number]) (ALB,T.PRO,BILI T,BU/BC,ALT,AST,ALK PHOS) 2020-11-08 18:29:00 [facility] BASIC METABOLIC PANEL (NA, K, CL, CO2, GLUCOSE, BUN, CREATININE, CA) 2020-11-08 18:29:00 [facility] CBC WITH DIFF 2020-11-08 18:29:00 [facility] 2020-11-08 18:29:00 [facility] NOTICE OF PRIVACY PRACTICES 2020-11-08 18:06:16 Doctor Unassigned, [place] [facility] CONSENT/REFUSAL FOR DIAGNOSIS AND TREATMENT 2020-11-08 18:06:04 Doctor Unassigned, [place] [facility] Encounters Start Date/Time End Date/Time Encounter Type Admission Type Attending [facility] Care Facility Care Department Encounter ID Source 2021-09-30 12:34:38 Outpatient [facility] [id number] [facility] 2023-10-06 09:30:00 2023-10-06 09:30:00 Outpatient MICHAEL BRAVO [id number] Parvin Knowles 2023-08-24 10:15:00 2023-08-24 10:15:00 Outpatient MICHAEL BRAVO [id number] Parvin Knowles 2022-09-15 00:00:00 2022-09-15 00:00:00 Transition of Care Ant Almanzarele Sherine CAYDENCarlito LISA ROUSE [id number] [facility] 2022-09-11 09:26:00 2022-09-14 13:00:00 Inpatient X TYREEMELINDA LAZARO [facility] ROMEO [id number] [facility] 2022-09-11 09:26:00 2022-09-14 13:00:00 Hospital En[facility] Ignacio [facility] [id number] [facility] 2020-11-08 12:16:00 2020-11-08 15:38:00 Emergency [facility] [id number] [facility] 2020-11-08 12:06:00 2020-11-08 12:06:00 [facility] [id number] [facility] 2020-11-08 00:00:00 2020-11-08 00:00:00 Orders Only Doctor Unassigned, [place] [facility] [id number] [facility] Results Test Description Test Time Test Comments Results Result Co mments Source [facility] GLUCOSE (AUTOMATED)2022-09-14 02:40:24* Test Item Value Reference Range Interpretation Comme nts POCT GLU (test code = 5930637966) 191 mg/dL 70-110 H Lab Interpretation (test cod e = 94127-1) Abnormal [facility] GLUCOSE (AUTOMATED)2022-09-13 23:13:20* Test Item Value Reference Range Interpretation Comme nts POCT GLU (test code = 9571479589) 126 mg/dL 70-110 H Lab Interpretation (test cod e = 47323-8) Abnormal [facility] GLUCOSE (AUTOMATED)2022-09-13 17:51:10* Test Item Value Reference Range Interpretation Comme nts POCT GLU (test code = 1251199409) 270 mg/dL 70-110 H Lab Interpretation (test cod e = 44997-1) Abnormal [facility] GLUCOSE (AUTOMATED)2022-09-13 14:08:01* Test Item Value Reference Range Interpretation Comme nts POCT GLU (test code = 1641410566) 177 mg/dL 70-110 H Lab Interpretation (test cod e = 86601-0) Abnormal [facility] GLUCOSE (AUTOMATED)2022-09-12 22:53:55* Test Item Value Reference Range Interpretation Comme nts POCT GLU (test code = 0517384167) 207 mg/dL 70-110 H Lab Interpretation (test cod e = 75476-6) Abnormal [facility] GLUCOSE (AUTOMATED)2022-09-12 18:09:02* Test Item Value Reference Range Interpretation Comme nts POCT GLU (test code = 7622687538) 92 mg/dL 70-110 Lab Interpretation (test cod e = 23051-4) Normal [facility] (71239)(TOTAL CHOLESTEROL, TRIGLYCERIDES, HDL)2022-09-12 14:58:08* Test Item Value Reference Range Interpretation Comme nts CHOL (test code = 8893211149) 138 mg/dL 120-200 HDL (test code = 6820920580) 23 mg/dL See_Comment L [Automated messa ge] The system which generated this result transmitted reference range: >=40. The reference range was not used to interpret this result as normal/abnormal. HDLC RATIO (test code = 2735827191) See_Comment H [Automated messa ge] The system which generated this result transmitted reference range: <=5.0. The reference range was not used to interpret this result as normal/abnormal. TRIG (test code = 4204115850) 171 mg/dL 30-170 H LDL CHOL (test code = 82179-7) 81 mg/dL See_Comment [Automated [employer] ge] The system which generated this result transmitted reference range: <=160. The reference range was not used to interpret this result as normal/abnormal. VLDL (test code = 2602619463) 34 mg/dL 5-60 Lab Interpretation (test code = 01776-4) [facility]normal [facility]2022-09-12 13:54:38* Test Item Value Reference Range Interpretation Comme nts POCT GLU (test code = 8644697735) 84 mg/dL 70-110 Lab Interpretation (test cod e = 68713-3) Normal [facility] ([id number]) (ALB,T.PRO,BILI T,BU/BC,ALT,AST,ALK PHOS)2022-09-12 13:03:03* Test Item Value Reference Range Interpretation Comme nts TOTAL BILI (test code = 6674453675) 1.0 mg/dL 0.1-1.1 BILI UNCON (test code = 6326205466) 0.8 mg/dL 0.1-1.1 BILI CONJ (test code = 4717952963) 0.0 mg/dL 0.0-0.3 T PROTEIN (test code = 1733556448) 6.7 g/dL 6.3-8.2 ALBUMIN (test code = 9351497002) 4.0 g/dL 3.5-5.0 ALK PHOS (test code = 5430073766) 106 U/L 34-122 ALTv (test code = 1742-6) 146 U/L 5-50 H AST(SGOT) (test code = 9147049082) 81 U/L 13-40 H Lab Interpretation (test cod e = 40669-5) [facility] 13:02:43* Test Item Value Reference Range Interpretation Comme nts MAGNESIUM (test code = 7347496569) 1.8 mg/dL 1.7-2.4 Lab Interpretation (test cod e = 86441-7) Normal [facility] (NA, K, CL, CO2, GLUCOSE, BUN, CREATININE, CA)2022-09-12 12:10:26* Test Item Value Reference Range Interpretation Comme nts NA (test code = 0341337004) 142 mmol/L 135-145 K (test code = 7410979313) 3.1 mmol/L 3.5-5.0 L CL (test code = 0094984899) 106 mmol/L 98-108 CO2 TOTAL (test code = 5169760941) 24 mmol/L 23-31 AGAP (test code = 7819144952) 2-16 BUN (test code = 8409855239) 8 mg/dL 7-23 GLUCOSE (test code = 6111002884) 73 mg/dL 70-110 CREATININE (test code = 0044309054) 0.72 mg/dL 0.60-1.25 CALCIUM (test code = 3577935906) 8.1 mg/dL 8.6-10.6 L eGFR (test code = 8443818180) mL/min/1.73m2 RAFAEL (test code = RAFAEL) Association of [...] or abnormalities in imaging tests). Lab Interpretation (test code = 11228-2) Abnormal [facility] WITH [id number] 11:46:12* Test Item Value Reference Range Interpretation Comme nts WBC (test code = 6690-2) See_Comment [Automated messa ge] The system which generated this result transmitted reference range: 4.20 - 10.70 10*3/?L. The reference range was not used to interpret this result as normal/abnormal. RBC (test code = 789-8) See_Comment [Automated messa ge] The system which generated this result transmitted reference range: 4.26 - 5.52 10*6/?L. The reference range was not used to interpret this result as normal/abnormal. HGB (test code = 718-7) 14.6 g/dL 12.2-16.4 HCT (test code = 4544-3) 41.7 % 38.4-49.3 MCV (test code = 787-2) 85.1 fL 81.7-95.6 MCH (test code = 785-6) 29.8 pg 26.1-32.7 MCHC (test code = 786-4) 35.0 g/dL 31.2-35.0 RDW-SD (test code = 70124-1) 36.0 fL 38.5-51.6 L RDW-CV (test code = 788-0) 11.9 % 12.1-15.4 L PLT (test code = 777-3) See_Comment [Automated messa ge] The system which generated this result transmitted reference range: 150 - 328 10*3/?L. The reference range was not used to interpret this result as normal/abnormal. MPV (test code = 08279-3) 10.7 fL 9.8-13.0 NRBC/100 WBC (test code = 0611952636) See_Comment [Automated [employer] ssage] The system which generated this result transmitted reference range: 0.0 - 10.0 /100 WBCs. The reference range was not used to interpret this result as normal/abnormal. NRBC x10^3 (test code = 8200787798) See_Comment [Automated messa ge] The system which generated this result transmitted reference range: 10*3/?L. The reference range was not used to interpret this result as normal/abnormal. GRAN MAT (NEUT) % (test code = 770-8) 50.2 % IMM GRAN % (test code = 2600635844) 0.40 % LYMPH % (test code = 736-9) 37.0 % MONO % (test code = 5905-5) 8.3 % EOS % (test code = 713-8) 3.6 % BASO % (test code = 706-2) 0.5 % GRAN MAT x10^3(ANC) (test code = 5919814821) 4.81 10*3/uL 1.99-6.95 IMM GRAN x10^3 (test code = 6335401269) 0.04 10*3/uL 0.00-0.06 LYMPH x10^3 (test code = 731-0) 3.56 10*3/uL 1.09-3.23 H MONO x10^3 (test code = 742-7) 0.80 10*3/uL 0.36-1.02 EOS x10^3 (test code = 711-2) 0.35 10*3/uL 0.06-0.53 BASO x10^3 (test code = 704-7) 0.05 10*3/uL 0.01-0.09 Lab Interpretation (test code = 67716-1) Abnormal [facility] GLUCOSE (AUTOMATED)2022-09-12 11:19:34* Test Item Value Reference Range Interpretation Comme nts POCT GLU (test code = 5193133068) 70 mg/dL 70-110 Lab Interpretation (test cod e = 82464-7) Normal [facility] GLUCOSE (AUTOMATED)2022-09-12 02:46:59* Test Item Value Reference Range Interpretation Comme nts POCT GLU (test code = 6862214367) 90 mg/dL 70-110 Lab Interpretation (test cod e = 11853-1) Normal [facility] GLUCOSE (AUTOMATED)2022-09-11 23:13:35* Test Item Value Reference Range Interpretation Comme nts POCT GLU (test code = 9598021636) 120 mg/dL 70-110 H Lab Interpretation (test cod e = 21614-4) [facility]normal [facility] HospitalGlycosylated Hemoglobin (A1C)2022-09-11 20:41:39* Test Item Value Reference Range Interpretation Comme nts HGB A1C (test code = 4548-4) 10.1 % 4.0-5.7 H RAFAEL (test code = RAFAEL) Reference RangesNormal: <5.7%Prediabetes: 5.7 - 6.4%Diabetes: > 6.5% Lab Interpretation (test code = 44732-9) Abnormal [facility] GLUCOSE (AUTOMATED)2022-09-11 19:01:23* Test Item Value Reference Range Interpretation Comme nts POCT GLU (test code = 8853156725) 283 mg/dL 70-110 H Lab Interpretation (test cod e = 57900-0) Abnormal [facility] GLUCOSE (AUTOMATED)2022-09-11 19:01:23* Test Item Value Reference Range Interpretation Comme nts POCT GLU (test code = 6487350273) 302 mg/dL 70-110 H Lab Interpretation (test cod e = 22771-8) Abnormal [facility] GLUCOSE (AUTOMATED)2022-09-11 19:01:23* Test Item Value Reference Range Interpretation Comme nts POCT GLU (test code = 0335317536) 277 mg/dL 70-110 H Lab Interpretation (test cod e = 19672-4) Abnormal [facility] GLUCOSE(AGE >30DAYS)2022-09-11 17:22:00* Test Item Value Reference Range Interpretation Comme nts POCT Glu (age>30days) (test code = 3342) 277 mg/dL 70-110 A Lab Interpretation (test cod e = 73545-5) [facility]normal [facility] HospitalComplete Metabolic [id number] 16:11:48* Test Item Value Reference Range Interpretation Comme nts NA (test code = 2013305749) 137 mmol/L 135-145 K (test code = 2113087762) 4.5 mmol/L 3.5-5.0 CL (test code = 1092765689) 102 mmol/L 98-108 CO2 TOTAL (test code = 9065530538) 22 mmol/L 23-31 L AGAP (test code = 4287799739) 2-16 BUN (test code = 9849590548) 15 mg/dL 7-23 GLUCOSE (test code = 7680272445) 318 mg/dL 70-110 H CREATININE (test code = 3921070820) 0.76 mg/dL 0.60-1.25 TOTAL BILI (test code = 3043357303) 1.5 mg/dL 0.1-1.1 H CALCIUM (test code = 0455342544) 9.1 mg/dL 8.6-10.6 T PROTEIN (test code = 2300392310) 7.7 g/dL 6.3-8.2 ALBUMIN (test code = 2594016784) 5.0 g/dL 3.5-5.0 ALK PHOS (test code = 0319533595) 124 U/L 34-122 H ALTv (test code = 1742-6) 173 U/L 5-50 H AST(SGOT) (test code = 2355285750) 76 U/L 13-40 H eGFR (test code = 1465026079) mL/min/1.73m2 RAFAEL (test code = RAFAEL) Association of [...] or abnormalities in imaging tests). Lab Interpretation (test code = 36118-3) [facility]normal [facility] HospitalLipase, [id number] 16:11:22* Test Item Value Reference Range Interpretation Comme nts LIPASE (test code = 5593704045) 22 U/L 0-220 Lab Interpretation (test cod e = 57022-1) Normal [facility] HospitalCB with Dwkltopqjpoh1578-58-56 15:57:05* Test Item Value Reference Range Interpretation Comme nts WBC (test code = 6690-2) See_Comment H [Automated messa ge] The system which generated this result transmitted reference range: 4.20 - 10.70 10*3/?L. The reference range was not used to interpret this result as normal/abnormal. RBC (test code = 789-8) See_Comment [Automated messa ge] The system which generated this result transmitted reference range: 4.26 - 5.52 10*6/?L. The reference range was not used to interpret this result as normal/abnormal. HGB (test code = 718-7) 16.2 g/dL 12.2-16.4 HCT (test code = 4544-3) 46.2 % 38.4-49.3 MCV (test code = 787-2) 83.8 fL 81.7-95.6 MCH (test code = 785-6) 29.4 pg 26.1-32.7 MCHC (test code = 786-4) 35.1 g/dL 31.2-35.0 H RDW-SD (test code = 23114-2) 35.5 fL 38.5-51.6 L RDW-CV (test code = 788-0) 11.8 % 12.1-15.4 L PLT (test code = 777-3) See_Comment [Automated messa ge] The system which generated this result transmitted reference range: 150 - 328 10*3/?L. The reference range was not used to interpret this result as normal/abnormal. MPV (test code = 97234-7) 10.3 fL 9.8-13.0 NRBC/100 WBC (test code = 6345269550) See_Comment [Automated [employer] ssage] The system which generated this result transmitted reference range: 0.0 - 10.0 /100 WBCs. The reference range was not used to interpret this result as normal/abnormal. NRBC x10^3 (test code = 0259478257) See_Comment [Automated messa ge] The system which generated this result transmitted reference range: 10*3/?L. The reference range was not used to interpret this result as normal/abnormal. GRAN MAT (NEUT) % (test code = 770-8) 64.6 % IMM GRAN % (test code = 8416761748) 0.50 % LYMPH % (test code = 736-9) 25.3 % MONO % (test code = 5905-5) 7.3 % EOS % (test code = 713-8) 1.9 % BASO % (test code = 706-2) 0.4 % GRAN MAT x10^3(ANC) (test code = 0852539003) 7.62 10*3/uL 1.99-6.95 H IMM GRAN x10^3 (test code = 6022059266) 0.06 10*3/uL 0.00-0.06 LYMPH x10^3 (test code = 731-0) 2.98 10*3/uL 1.09-3.23 MONO x10^3 (test code = 742-7) 0.86 10*3/uL 0.36-1.02 EOS x10^3 (test code = 711-2) 0.22 10*3/uL 0.06-0.53 BASO x10^3 (test code = 704-7) 0.05 10*3/uL 0.01-0.09 Lab Interpretation (test code = 81754-4) Abnormal [facility] GLUCOSE (AUTOMATED)2020-11-08 20:30:00* Test Item Value Reference Range Interpretation Comme nts POCT GLU (test code = 5452039139) 181 mg/dL 70-110 H Lab Interpretation (test cod e = 25712-6) Abnormal [facility] Metabolic Panel (NA, K, CL, CO2, GLUCOSE, BUN, CREATININE, CA)2020-11-08 18:48:00* Test Item Value Reference Range Interpretation Comme nts NA (test code = 0415122809) 134 mmol/L 135-145 L K (test code = 5951627055) 4.0 mmol/L 3.5-5 CL (test code = 3464691498) 96 mmol/L 98-108 L CO2 TOTAL (test code = 7643610718) 29 mmol/L 23-31 AGAP (test code = 1356672632) 2-16 BUN (test code = 2350066188) 10 mg/dL 7-23 GLUCOSE (test code = 7986698092) 368 mg/dL 70-110 H CREATININE (test code = 7367364249) 0.58 mg/dL 0.6-1.25 L CALCIUM (test code = 1066683605) 9.1 mg/dL 8.6-10.6 eGFR Calculation (Non-) (test code = 9741258056) mL/min/1.73m2 eGFR Calculation () (test code = 0864785646) mL/min/1.73m2 RAFAEL (test code = RAFAEL) Association of [...] or abnormalities in imaging tests). Lab Interpretation (test code = 13518-3) [facility]normal [facility] HospitalHepatic Function Panel (ALB, T.PRO, BILI T, BU/BC, ALT, AST, ALK PHOS)2020-11-08 18:48:00* Test Item Value Reference Range Interpretation Comme nts TOTAL BILI (test code = 8273849143) 0.8 mg/dL 0.1-1.1 BILI UNCON (test code = 4427969595) 0.8 mg/dL 0.1-1.1 BILI CONJ (test code = 2961679672) 0.0 mg/dL 0-0.3 T PROTEIN (test code = 4505493827) 7.8 g/dL 6.3-8.2 ALBUMIN (test code = 8766088286) 4.7 g/dL 3.5-5 ALK PHOS (test code = 8870857571) 147 U/L 34-122 H ALTv (test code = 1742-6) 48 U/L 5-50 AST(SGOT) (test code = 7427360335) 42 U/L 13-40 H Lab Interpretation (test cod e = 72425-3) [facility]normal [facility] HospitalLipase [id number] 18:48:00* Test Item Value Reference Range Interpretation Comme nts LIPASE (test code = 1885461423) 27 U/L 0-220 Lab Interpretation (test cod e = 73426-8) Normal [facility] HospitalUrinalysis2021-03-06 18:39:00* Test Item Value Reference Range Interpretation Comme nts APPEARANCE (test code = 0315759281) Clear Clear COLOR (test code = 9569449305) Yellow Yellow PH (test code = 1445007685) 4.8-8.0 SP GRAVITY (test code = 1711412803) 1.003-1.030 H GLU U QUAL (test code = 2734533139) 500 mg/dL Normal A BLOOD (test code = 4214797596) Negative Negative KETONES (test code = 6121575787) 5 mg/dL Negative A PROTEIN (test code = 2887-8) Negative Negative UROBILIN (test code = 3054074196) Normal Normal BILIRUBIN (test code = 6083077400) Negative Negative NITRITE (test code = 7722138714) Negative Negative LEUK ALYSHA (test code = 2492640420) Negative Negative RBC/HPF (test code = 3592628417) See_Comment [Automated messa ge] The system which generated this result transmitted reference range: 0 - 3 HPF. The reference range was not used to interpret this result as normal/abnormal. WBC/HPF (test code = 0899244744) See_Comment [Automated messa ge] The system which generated this result transmitted reference range: 0 - 5 HPF. The reference range was not used to interpret this result as normal/abnormal. BACTERIA (test code = 3966851395) Negative Negative Lab Interpretation (test code = 60744-5) Abnormal [facility] with Ssthuppdbdwc3587-15-77 18:36:00* Test Item Value Reference Range Interpretation Comme nts WBC (test code = 6690-2) See_Comment [Automated messa ge] The system which generated this result transmitted reference range: 4.20 - 10.70 10*3/?L. The reference range was not used to interpret this result as normal/abnormal. RBC (test code = 789-8) See_Comment H [Automated messa ge] The system which generated this result transmitted reference range: 4.26 - 5.52 10*6/?L. The reference range was not used to interpret this result as normal/abnormal. HGB (test code = 718-7) 17.7 g/dL 12.2-16.4 H HCT (test code = 4544-3) 49.1 % 38.4-49.3 MCV (test code = 787-2) 82.1 fL 81.7-95.6 MCH (test code = 785-6) 29.6 pg 26.1-32.7 MCHC (test code = 786-4) 36.0 g/dL 31.2-35 H RDW-SD (test code = 79194-1) 33.7 fL 38.5-51.6 L RDW-CV (test code = 788-0) 11.5 % 12.1-15.4 L PLT (test code = 777-3) See_Comment H [Automated messa ge] The system which generated this result transmitted reference range: 150 - 328 10*3/?L. The reference range was not used to interpret this result as normal/abnormal. MPV (test code = 19858-5) 10.2 fL 9.8-13 NRBC/100 WBC (test code = 1211919596) See_Comment [Automated me ssage] The system which generated this result transmitted reference range: 0.0 - 10.0 /100 WBCs. The reference range was not used to interpret this result as normal/abnormal. NRBC x10^3 (test code = 7167155152) <0.01 See_Comment [Automated messa ge] The system which generated this result transmitted reference range: 10*3/?L. The reference range was not used to interpret this result as normal/abnormal. GRAN MAT (NEUT) % (test code = 770-8) 60.3 % IMM GRAN % (test code = 5778495464) 0.70 % LYMPH % (test code = 736-9) 29.2 % MONO % (test code = 5905-5) 4.7 % EOS % (test code = 713-8) 3.9 % BASO % (test code = 706-2) 1.2 % GRAN MAT x10^3(ANC) (test code = 8381915765) 6.44 10*3/uL 1.99-6.95 IMM GRAN x10^3 (test code = 2226699304) 0.07 10*3/uL 0-0.06 H LYMPH x10^3 (test code = 731-0) 3.12 10*3/uL 1.09-3.23 MONO x10^3 (test code = 742-7) 0.50 10*3/uL 0.36-1.02 EOS x10^3 (test code = 711-2) 0.42 10*3/uL 0.06-0.53 BASO x10^3 (test code = 704-7) 0.13 10*3/uL 0.01-0.09 H Lab Interpretation (test code = 62306-9) Abnormal [facility]"
[2023-09-15 00:43] LABS: Absolute Lymphocytes (CBC) 2.5 K/uL (0.7-4.9); Hematocrit 44.5 % (39.6-49.0); Lymphocytes % 20.7 % (15.3-44.8); MCV 85.1 fL (80-100); MPV 8.9 fL (7.6-11.3); Platelets 252 thou/uL (152-406); RBC Red Blood Cell Count 5.23 M/uL (4.33-5.43)
[2023-09-15 00:52] LABS: Albumin 3.5 g/dL (3.4-5.0); Bilirubin Total 0.6 mg/dL (0.2-1.0); Potassium 4.1 mEq/L (3.5-5.1)
--- NOTE | 2023-09-15 01:42 | EDPHYS ---
Physician Documentation [facility] Name: Jimenez Patrick Age: 28 yrs Sex: Male : 1995 Arrival Date: 09/14/2023 Time: 23:43 Bed 19 Private MD: ED Physician Millie Chaudhry HPI: 09/15 00:18 This 28 yrs old Male presents to ER via Ambulatory with complaints of kb Abdominal Pain. 00:18 Pt is a 28 year old male with a history of chronic pancreatitis and diabetes who gb1 presents for upper abd pain for 3 days. States he has been taking ibuprofen but it hasn't been relieving the pain. Denies n/v/d, fever. Feels similar to previous episodes of pancreatitis. Historical: - Allergies: 00:08 NKA; jj7 - PMHx: 00:08 Chronic Pancreatitis; Diabetes - IDDM; jj7 - PSHx: 00:08 Cholecystectomy; stents x 2 in pancreas; I\T\D; jj7 - Immunization history:: Adult Immunizations not immunized. - Social history:: Smoking status: Patient denies any tobacco usage or history of. Patient/guardian denies using alcohol, street drugs. ROS: 00:16 Constitutional: Negative for fever, chills, and weight loss, kb 00:16 Abdomen/GI: Positive for abdominal pain, Negative for nausea and vomiting, 00:16 All other systems are negative, Exam: 00:16 Constitutional: This is a well developed, well nourished patient who is awake, alert, kb and in no acute distress. Head/Face: Normocephalic, atraumatic. ENT: Moist Mucous membranes Cardiovascular: Regular rate Respiratory: Respirations even and unlabored. No increased work of breathing. Talking in full sentences Skin: Warm, dry with normal turgor. Normal color. MS/ Extremity: Pulses equal, no cyanosis. Neurovascular intact. Full, normal range of motion. Neuro: Awake and alert, GCS 15, oriented to person, place, time, and situation. Moves all extremities. Normal gait. 00:16 Abdomen/GI: Inspection: abdomen appears normal, Bowel sounds: normal, in all quadrants, Palpation: soft, in all quadrants, mild abdominal tenderness, in the right upper quadrant and left upper quadrant, Vital Signs: 00:06 Pulse 98; Resp 19; Temp 97.7; Pulse Ox 100% ; Weight 96.16 kg; Height 5 ft. 9 in. ; jj7 Pain 02/12; 00:44 BP 143 / 94; Pulse 84; Pulse Ox 100% on R/A; ap3 01:25 BP 137 / 88; Pulse 73; Pulse Ox 99% on R/A; ap3 00:06 Body Mass Index 31.31 (96.16 kg, 175.26 cm) jj7 00:06 Pain Scale: Adult jj7 MDM: 09/14 23:58 Patient medically screened. kb 09/15 00:16 Differential diagnosis: gastroesophageal reflux disease, non-specific abd pain, kb pancreatitis. Data reviewed: vital signs, nurses notes. 00:20 Care significantly affected by the following chronic conditions: Diabetes. kb 00:37 Transition of care: After a detail discussion of the patient's case, care is kb transferred to Millie Chaudhry MD. 09/14 23:58 Order name: CBC with Diff; Complete Time: 01:01 kb 09/14 23:58 Order name: CMP; Complete Time: 01: kb 09/14 23:58 Order name: Lipase; Complete Time: 01: kb 09/14 23:58 Order name: IV Saline Lock; Complete Time: 00:14 kb 09/14 23:58 Order name: Labs collected and sent; Complete Time: 00:14 kb Administered Medications: 00:28 Drug: NS 0.9% IV 1000 ml IV at 1000 ml once Route: IV; Rate: 1000 ml; Site: right as6 antecubital; 01:55 Follow up: IV Status: Completed infusion; IV Intake: 1000ml ap3 00:28 Drug: Famotidine IVP 20 mg IVP once; dilute with 10 mL 0.9% NaCl; give over 2 minutes as6 Route: IVP; Site: right antecubital; 00:43 Follow up: Response: No adverse reaction ap3 00:28 Drug: morphine IVP or IV 4 mg IVP once over 4 mins Route: IVP; Infused Over: 4 mins; as6 Site: right antecubital; 00:43 Follow up: Response: No adverse reaction; Pain is decreased ap3 00:43 Follow up: Response: No adverse reaction ap3 00:28 Drug: Ondansetron IVP 4 mg IVP once; over 2 minutes Route: IVP; Site: right antecubital;as6 01:54 Follow up: Response: No adverse reaction ap3 Disposition: 01:40 Co-signature as Attending Physician, Millie Chaudhry MD I agree with the assessment and gb1 plan of care. I reviewed the patient's care provided by Advanced Practice Provider \T\ agree w/ the diagnosis \T\ care plan. I personally saw the pt \T\ performed a substantive portion of the visit, incldng all aspects of the (History/Exam/Medical Decision Making). 01:42 28-year-old male with history of chronic pancreatitis has normal blood work today. gb1 Lipase is not elevated. Patient is clinically improved and given this was a return precautions which is compliant with prior discharge home today. I doubt acute appendicitis, small bowel obstruction or acute pyelonephritis.. Disposition Summary: 09/15/23 01:41 Discharge Ordered Notes: Location: Home gb1 Problem: new gb1 Symptoms: have improved gb1 Condition: Stable gb1 Diagnosis - Abdominal pain, Generalized gb1 Followup: gb1 - With: Private Physician - When: As needed - Reason: Recheck today's complaints Discharge Instructions: - Discharge Summary Sheet gb1 - Abdominal Pain, Adult, Ybck-rg-Buun gb1 Forms: - Medication Reconciliation Form gb1 - Thank You Letter gb1 - Antibiotic Education gb1 - Prescription Opioid Use gb1 - Patient Portal Instructions gb1 - Leadership Thank You Letter gb1 Signatures: Dispatcher [employer] Marianela Bullock, SOLE TIER-C SOLE TIER-Po Saunders RN RN as6 Dagmar Deleon RN RN jj7 Millie Chaudhry MD MD gb1 Dorie Cates RN ap3 Corrections: (The following items were deleted from the chart) 01:39 00:18 Pt is a 28 year old male with a history of chronic pancreatitis and diabetes who gb1 presents for upper abd pain for 3 days. States he has been taking ibuprofen but it hasn't been relieving the pain. Denies n/v/d, fever. Feels similar to previous episodes of pancreatitis. kb
--- NOTE | 2023-09-15 01:42 | ER ---
Nurse's Notes [facility] Name: Jimenez Patrick Age: 28 yrs Sex: Male : 1995 Arrival Date: 09/14/2023 Time: 23:43 Bed 19 Private MD: Diagnosis: Abdominal pain, Generalized Presentation: 09/15 00:06 Chief complaint: Patient states: PANCREATITIS FLARE UP. ABD PAIN X3 DAYS. NO N/V/D. jj7 Coronavirus screen: At this time, the client does not indicate any symptoms associated with coronavirus-19. Ebola Screen: No symptoms or risks identified at this time. Initial Sepsis Screen: Does the patient meet any 2 criteria? No. Patient's initial sepsis screen is negative. Does the patient have a suspected source of infection? No. Patient's initial sepsis screen is negative. Risk Assessment: Do you want to hurt yourself or someone else? Patient reports no desire to harm self or others. Onset of symptoms was September 11, 2023. 00:06 Method Of Arrival: Ambulatory [facility] 00:06 Acuity: MOSES 3 jj7 Triage Assessment: 00:08 General: Appears in no apparent distress. uncomfortable, Behavior is calm, cooperative, jj7 appropriate for age. Pain: Complains of pain in epigastric area Pain radiates to right upper quadrant. GI: Reports upper abdominal pain, epigastric pain. Historical: - Allergies: 00:08 NKA; jj7 - PMHx: 00:08 Chronic Pancreatitis; Diabetes - IDDM; jj7 - PSHx: 00:08 Cholecystectomy; stents x 2 in pancreas; I\T\D; jj7 - Immunization history:: Adult Immunizations not immunized. - Social history:: Smoking status: Patient denies any tobacco usage or history of. Patient/guardian denies using alcohol, street drugs. Screenin:10 [facility] ED Fall Risk Assessment (Adult) History of falling in the last 3 months, jj7 including since admission No falls in past 3 months (0 pts) Confusion or Disorientation No (0 pts) Intoxicated or Sedated No (0 pts) Impaired Gait No (0 pts) Mobility Assist Device Used No (0 pt) Altered Elimination No (0 pt) Score/Fall Risk Level 0 - 2 = Low Risk Oriented to surroundings, Maintained a safe environment, Educated pt \T\ family on fall prevention, incl call for assistance when getting out of bed. Abuse screen: Denies threats or abuse. Nutritional screening: No deficits noted. Tuberculosis screening: No symptoms or risk factors identified. Assessment: 00:43 General: Appears in no apparent distress. Behavior is calm, cooperative, appropriate ap3 for age. Pain: Complains of pain in abdomen Pain began 2-3 days ago. Neuro: Level of Consciousness is awake, alert, obeys commands, Oriented to person, place, time, situation. Cardiovascular: Patient's skin is warm and dry. Respiratory: Airway is patent Respiratory effort is even, unlabored, Respiratory pattern is regular, symmetrical. GI: Bowel sounds present X 4 quads. Abd is soft Reports lower abdominal pain, upper abdominal pain. Vital Signs: 00:06 Pulse 98; Resp 19; Temp 97.7; Pulse Ox 100% ; Weight 96.16 kg; Height 5 ft. 9 in. ; jj7 Pain 6/10; 00:44 BP 143 / 94; Pulse 84; Pulse Ox 100% on R/A; ap3 01:25 BP 137 / 88; Pulse 73; Pulse Ox 99% on R/A; ap3 00:06 Body Mass Index 31.31 (96.16 kg, 175.26 cm) jj7 00:06 Pain Scale: Adult jj7 ED Course: 09/14 23:48 Patient arrived in ED. gm2 23:58 [facility]C [facility] kb 23:58 Millie Chaudhry MD is Attending Physician. kb 09/15 00:08 Triage completed. jj7 00:08 Arm band placed on right wrist. jj7 00:10 No provider procedures requiring assistance completed. jj7 00:15 CBC with Diff Sent. bc6 00:15 CMP Sent. bc6 00:15 Lipase Sent. bc6 00:15 Inserted saline lock: 20 gauge in right antecubital area, using aseptic technique. bc6 Blood collected. 00:41 Dorie Cates, RN is Primary Nurse. ap3 00:44 Patient has correct armband on for positive identification. Bed in low position. Call ap3 light in reach. Side rails up X2. Pulse ox on. NIBP on. 01:54 Provided Education on: discharge instructions. ap3 01:54 IV discontinued, intact, bleeding controlled, No redness/swelling at site. Pressure ap3 dressing applied. Administered Medications: 00:28 Drug: NS 0.9% IV 1000 ml IV at 1000 ml once Route: IV; Rate: 1000 ml; Site: right as6 antecubital; 01:55 Follow up: IV Status: Completed infusion; IV Intake: 1000ml ap3 00:28 Drug: Famotidine IVP 20 mg IVP once; dilute with 10 mL 0.9% NaCl; give over 2 minutes as6 Route: IVP; Site: right antecubital; 00:43 Follow up: Response: No adverse reaction ap3 00:28 Drug: morphine IVP or IV 4 mg IVP once over 4 mins Route: IVP; Infused Over: 4 mins; as6 Site: right antecubital; 00:43 Follow up: Response: No adverse reaction; Pain is decreased ap3 00:43 Follow up: Response: No adverse reaction ap3 00:28 Drug: Ondansetron IVP 4 mg IVP once; over 2 minutes Route: IVP; Site: right antecubital;as6 01:54 Follow up: Response: No adverse reaction ap3 Medication: 00:44 VIS not applicable for this client. ap3 Intake: 01:55 IV: 1000ml; Total: 1000ml. ap3 Outcome: 01:41 Discharge ordered by gb1 01:54 Discharged to home ambulatory, ap3 01:54 Condition: good 01:54 Discharge instructions given to patient, Instructed on discharge instructions, follow up and referral plans. Demonstrated understanding of instructions, follow-up care, 01:54 Patient left the ED. ap3 Signatures: Marianela Moyer, SULY ANNP-Dorie Carmichael RN RN ap3 Po Frazier RN RN as6 Dagmar Deleon RN RN jj7 Melanie Montesinos Gina, MD MD gb1 Kat Ortega gm2
[2023-09-15 08:40] VITALS: TEMP 97.7
[2023-09-15 08:52] VITALS: BP 137/88
[2023-09-15 08:53] VITALS: O2SAT 99
== END ==
LOC: ER 23:43
DX: R10.84 Generalized abdominal pain (principal); E11.9 Type 2 diabetes mellitus without complications
CPT/HCPCS: 36415; 96361; 96374; 96375; 99284

== ENCOUNTER → 2023-09-16 | Emergency (ER) | payer OTHER ==
[~2023-09-16] MED LIST changes: -FAMOTIDINE 20 MG/2 ML VIAL IV ONE; +MAGNES/ALUMIN/SIMET 30ML UCUP ONE
--- OUTSIDE RECORDS SUMMARY | 2023-09-16 01:19 | XMS REPORT | Continuity of Care Document ---
Author Name Unknown Address [address] 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 Name Role Phone PCP, PATIENT DOES NOT HAVE A Primary Care Physic adry Unavailable MICHAEL BRAVO Attending Clinician Unavailable Nabil Almanzar RN Attending Clinician Unavail able LAZARO HUNTER Attending Clinician Unavailable Augustin Kincaid Attending Clinician [phone] Esa Ko DO Attending Clinician [phone] Lazaro Hunter MD Attending Clinician [phone] Syeda Alberts Attending Clinician [phone] SYEDA PEARCE Attending Clinician Unavailable Doctor Unassigned, [place] Attending Clinician U navailable LAZARO HUNTER Admitting Clinician Unavailable Lazaro Hunter MD Admitting Clinician [phone] Payers Payer Name Policy Type Policy Number Effective Date Expirati on Date Source MICHELET SAENZ [employer]: 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 94 ON STAND 9 [id number] 2023-07-06 00:00:00 Problems Condition Name Condition Details Condition Category Status Onset Date Resolution Date Last Treatment Date Treating Clinician Comments Source Acute on chronic pancreatit is Acute on chronic pancreatit is Disease Active 09-12 00:00: 00 [facility] Epigastric pain Epigastric pain Disease Active 09-11 00:00: 00 [facility] Obesity (BMI 30-39.9) Obesity (BMI 30-39.9) Disease Active 04-16 00:00: 00 [facility] Mesenteric adenitis Mesenteric adenitis Disease Active 2009-09 00:00: 00 [facility] Pancreatit is Pancreatit is Disease Active 2009-09 00:00: 00 [facility] Abdominal pain Abdominal pain Disease Active 2009-09 00:00: 00 [facility] Other acne Other acne Disease Active 04-13 00:00: 00 [facility] Viral warts Viral warts Disease Active 04-13 00:00: 00 Overview: Formattin g of this note might be different from the original. Right [id number] Diagnosis Term Diabetes Territory Manager Utility [facility] Allergies, Adverse Reactions, Alerts Allergy Name Allergy Type Status Severity Reaction(s) Onset Date Inactive Date Treating Clinician Comments Source NO KNOWN ALLERGIE S Drug Class Active [facility] Social History Social Habit Start Date Stop Date Quantity Comments Source History of tobacco use Passive smoker [facility] History SDOH Social Connections Get Together [facility] History SDOH Social Connections [facility] History SDOH Social Connections Membership [facility] History SDOH Social Connections Meetings [facility] History SDOH Physical Activity MPS 2022-09-13 00:00:00 2022-09-13 00:00:00 3 [facility] History SDOH Financial 2022-09-13 00:00:00 2022-09-13 00:00:00 5 [facility] History SDOH Food Worry 2022-09-13 00:00:00 2022-09-13 00:00:00 1 [facility] History SDOH Food Scarcity 2022-09-13 00:00:00 2022-09-13 00:00:00 1 [facility] History SDOH Transport Med 2022-09-13 00:00:00 2022-09-13 00:00:00 2 [facility] History SDOH Transport Non-Med 2022-09-13 00:00:00 2022-09-13 00:00:00 2 [facility] History SDOH Alcohol Frequency 2022-09-13 00:00:00 2022-09-13 00:00:00 1 [facility] History SDOH Alcohol Std Drinks 2022-09-13 00:00:00 2022-09-13 00:00:00 0 [facility] History SDOH Alcohol Binge 2022-09-13 00:00:00 2022-09-13 00:00:00 1 [facility] History SDOH Social Connections Phone 2022-09-13 00:00:00 2022-09-13 00:00:00 5 [facility] History SDOH Social Connections Living 2022-09-13 00:00:00 2022-09-13 00:00:00 5 [facility] History SDOH Physical Activity DPW 2022-09-13 00:00:00 2022-09-13 00:00:00 4 [facility] Tobacco use and exposure 2022-09-12 00:00:00 2022-09-12 00:00:00 Smokeless tobacco non-user [facility] Alcohol intake 2022-09-12 00:00:00 2022-09-12 00:00:00 Ex-drinker (finding) [facility] Exposure to SARS-CoV-2 (event) 2022-09-01 00:00:00 2022-09-11 13:58:00 Not sure [facility] Education 2022-09-11 00:00:00 2022-09-11 00:00:00 13 [facility] Sex Assigned At 1995 00:00:00 1995 00:00:00 [facility] Smoking Status Start Date Stop Date Source Ex-smoker 2022-09-12 00:00:00 2022-09-12 [facility] Medications Ordered Medication Name Filled Medication Name Start Date Stop Date Current Medication? Ordering Clinician Indication Dosage Frequency Signature (SIG) Comments Components Source insulin NPH and regular human 70-30 (NOVOLIN 70/30 U-100 INSULIN) 100 unit/mL (70-30) injection - 12:13: 02 09-14 00:00 :00 No 60U inject 60 Units under the skin 2 (two) times daily before breakfast and dinner. [facility] insulin NPH and regular human 70-30 (NOVOLIN 70/30 U-100 INSULIN) 100 unit/mL (70-30) injection 09-14 00:00: 00 Yes [id number] 60U inject 60 Units under the skin 2 (two) times daily before breakfast and dinner. [facility] insulin NPH and regular human 70-30 (NOVOLIN 70/30 U-100 INSULIN) 100 unit/mL (70-30) injection 09-14 00:00: 00 Yes [id number] 60U inject 60 Units under the skin 2 (two) times daily before breakfast and dinner. [facility] atorvastati n 40 mg tablet 09-14 00:00: 00 10-15 05:59 :00 No [id number] 40mg Take 1 tablet by mouth at bedtime for 30 days. [facility] lisinopriL 10 mg tablet 09-14 00:00: 00 10-15 05:59 :00 No [id number] 10mg Take 1 tablet by mouth in the morning and 1 tablet in the evening. Do all this for 30 days. [facility] atorvastati n 40 mg tablet 09-14 00:00: 00 10-15 05:59 :00 No [id number] 40mg Take 1 tablet by mouth at bedtime for 30 days. [facility] lisinopriL 10 mg tablet 09-14 00:00: 00 10-15 05:59 :00 No [id number] 10mg Take 1 tablet by mouth in the morning and 1 tablet in the evening. Do all this for 30 days. [facility] morpHINE (4 mg/mL) injection 4 mg 09-13 09:53: 10 Yes 4mg 4 mg, Slow IV Push, Q4HPRN, Starting on Tue09/13/22 at 0353, Until Discontinu ed, Routine, Pain (scale 7-10) [facility] atorvastati n (LIPITOR) tablet 40 mg 09-13 03:00: 00 Yes 40mg 40 mg, Oral, QHS, First dose on 09/12/22 at 2100, Until Discontinu ed, Routine [facility] lisinopriL (PRINIVIL,Z ESTRIL) tablet 10 mg 09-12 14:45: 00 Yes 10mg 10 mg, Oral, BID, First dose (after last modificati on) on 09/12/22 at 0845, Until Discontinu ed, Routine [facility] KCL (KLOR-CON M20) tablet 40 mEq 09-12 13:45: 00 09-12 14:15 :00 No 40meq 40 mEq, Oral, ONCE, 1 dose, On 09/12/22 at 0745, Routine [facility] potassium chloride in water 10 mEq/100 mL RTU 10 mEq 09-12 13:00: 00 09-12 16:20 :00 No 10meq 10 mEq, IV Piggyback, Q1H, 2 doses, First dose on 09/12/22 at 0700, Last dose on 09/12/22 at 0800, Administer over 60 Minutes, 100 mL [facility] lisin[facility] (PRINIVIL,Z ESTRIL) tablet 5 mg 09-12 05:00: 00 09-12 14:35 :46 No 5mg 5 mg, Oral, BID, First dose on 09/11/22 at 2300, Until Discontinu ed, [facility] lactated ringers [facility] 1,000 mL 09-12 03:15: 00 Yes 1000mL at 150 mL/hr, 1,000 mL, IV Infusion, CONTINUOUS , Starting on 09/11/22 at 2115, Until Discontinu ed, Routine [facility] Sliding Scale Insulin - Lispro (HumaLOG) + Fsbg Testing 09-11 23:00: 00 Yes Subcutaneo us, TID MEALS+HS, First dose on 09/11/22 at 1700, Until Discontinu ed, Routine [facility] enoxaparin (LOVENOX) injection 40 mg 09-11 23:00: 00 Yes 40mg 40 mg, Subcutaneo us, DAILY, First dose on 09/11/22 at 1700, Until Discontinu ed, Routine [facility] lactated ringers IV infusion 1,000 mL 09-11 19:15: 00 09-12 03:05 :27 No 1000mL at 125 mL/hr, 1,000 mL, IV Infusion, CONTINUOUS , Starting on 09/11/22 at 1315, Until 09/11/22 at 2105, [facility] lactated ringers IV infusion 1,000 mL 09-11 19:00: 00 09-11 19:56 :58 No 1000mL at 999 mL/hr, 1,000 mL, Intravenou s, ONCE, 1 dose, On 09/11/22 at 1300, [facility] NaCl 0.9% (NS) IV infusion 1,000 mL 09-11 18:15: 00 09-11 19:00 :00 No 1000mL at 999 mL/hr, Intravenou s, ONCE, 1 dose, On 09/11/22 at 1215, [facility] FENTanyl PF (SUBLIMAZE (PF)) injection 50 mcg 09-11 18:05: 00 09-11 18:10 :00 No 50ug 50 mcg, Slow IV Push, ONCE, 1 dose, On 09/11/22 at 1215, [facility] ondansetron (ZOFRAN (PF)) injection 4 mg 09-11 18:05: 00 09-11 18:09 :00 No 4mg 4 mg, Slow IV Push, ONCE, 1 dose, On 09/11/22 at 1215, [facility] glucagon (GLUCAGEN DIAGNOSTIC KIT) injection 1 mg 09-11 18:04: 12 Yes 1mg 1 mg, Intramuscu lar, PRN, Starting on 09/11/22 at 1204, Until Discontinu ed, MARITA, Blood Glucose < or = 70 mg/dL and patient is unable to swallow or has mental changes. [facility] dextrose 50 % in water (D50W) injection 25 mL 09-11 18:04: 12 Yes 25mL 25 mL, Slow IV Push, PRN, Starting on 09/11/22 at 1204, Until Discontinu ed, MARITA, Blood Glucose < or = 70 mg/dL and patient is unable to swallow or has mental status changes. [facility] ondansetron (ZOFRAN (PF)) injection 4 mg 09-11 18:04: 03 Yes 4mg 4 mg, Slow IV Push, Q6HPRN, Starting on 09/11/22 at 1204, Until Discontinu ed, Routine, Nausea and Vomiting (N/V) [facility] morpHINE (2 mg/mL) injection 2 mg 09-11 18:03: 52 09-12 18:02 :52 No 2mg 2 mg, Slow IV Push, Q4HPRN, Starting on 09/11/22 at 1203, Until 09/12/22 at 1202, Routine, Pain (scale 7-10) [facility] HYDROcodone -acetaminop hen (NORCO 5) 5-325 mg tablet 1 tablet 09-11 18:03: 48 09-13 18:02 :48 No 1{tbl} 1 tablet, Oral, Q6HPRN, Starting on 09/11/22 at 1203, Until 09/13/22 at 1202, Routine, Pain (scale 4-6) [facility] acetaminoph en (TYLENOL) tablet 650 mg 09-11 18:03: 39 Yes 650mg 650 mg, Oral, Q6HPRN, Starting on 09/11/22 at 1203, Until Discontinu ed, Routine, Pain (scale 1-3) [facility] insulin NPH and regular human 70-30 (70-30 U-100 INSULIN) 100 unit/mL (70-30) injection 60 Units 09-11 18:03: 00 09-11 18:54 :00 No 60U 60 Units, Subcutaneo us, ONCE, 1 dose, On 09/11/22 at 1215, [facility] FENTanyl PF (SUBLIMAZE (PF)) injection 50 mcg 09-11 16:38: 00 09-11 16:41 :00 No 50ug 50 mcg, Slow IV Push, ONCE, 1 dose, On 09/11/22 at 1045, [facility] iopamidol (ISOVUE 370-500 mL) injection 78 mL 09-11 16:35: 00 09-11 16:45 :00 No [id number] 78mL 78 mL, Intravenou s, ONCE, 1 dose, On 09/11/22 at 1045, Routine [facility] ondansetron (ZOFRAN (PF)) injection 4 mg 09-11 15:45: 00 09-11 15:50 :00 No [id number] 4mg 4 mg, Slow IV Push, ONCE, 1 dose, On 09/11/22 at 0945, [facility] famotidine (PEPCID (PF)) injection 20 mg 09-11 15:45: 00 09-11 15:50 :00 No [id number] 20mg 20 mg, Slow IV Push, ONCE, 1 dose, On 09/11/22 at 0945, [facility] NaCl 0.9% (NS) IV infusion 1,000 mL 09-11 15:33: 00 09-11 17:00 :00 No [id number] 1000mL at 999 mL/hr, Intravenou s, ONCE, 1 dose, On 09/11/22 at 0945, [facility] sodium chloride (NS) injection 5 mL 09-11 15:32: 59 Yes [id number] 5mL 5 mL, Intravenou s, PRN, Starting on 09/11/22 at 0932, Until Discontinu ed, Routine, IV line flushing [facility] maalox:diph enhydrAMINE :lidocaine 2 % viscous 1:1:1 (FIRST-MOUT HWASH BLM) oral suspension 15 mL 11-08 20:45: 00 11-08 20:39 :00 No 15mL 15 mL, Oral, ONCE, 1 dose, 11/08/20 at 1445, [facility] insulin regular human (HUMULIN R) injection 9 Units 11-08 20:30: 00 11-08 19:39 :00 No 9U 9 Units, Slow IV Push, ONCE, 1 dose, 11/08/20 at 1430, STAT [facility] ondansetron (ZOFRAN (PF)) injection 4 mg 11-08 19:45: 00 11-08 18:49 :00 No 4mg 4 mg, Slow IV Push, ONCE, 1 dose, 11/08/20 at 1345, [facility] morpHINE injection 4 mg 11-08 19:45: 00 11-08 18:49 :00 No 4mg 4 mg, Slow IV Push, ONCE, 1 dose, 11/08/20 at 1345, [facility] NaCl 0.9% (NS) bolus infusion 1,000 mL 11-08 19:30: 00 11-08 20:37 :00 No 1000mL at 999 mL/hr, 1,000 mL, IV Infusion, ONCE, 1 dose, 11/08/20 at 1330, [facility] NaCl 0.9% (NS) bolus infusion 1,000 mL 11-08 18:30: 00 11-08 19:39 :00 No 1000mL at 999 mL/hr, 1,000 mL, IV Infusion, ONCE, 1 dose, 11/08/20 at 1230, [facility] ondansetron (ZOFRAN ODT) 4 mg disintegrat ing tablet 11-08 00:00: 00 Yes [id number] 4mg Take 1 tablet by mouth every 8 (eight) hours as needed for Nausea and Vomiting (N/V). [facility] dicyclomine 20 mg tablet 11-08 00:00: 00 Yes [id number] 20mg Take 1 tablet by mouth 4 (four) times daily as needed for Abdominal pain. [facility] ondansetron (ZOFRAN ODT) 4 mg disintegrat ing tablet 11-08 00:00: 00 09-11 00:00 :00 No [id number] 4mg Take 1 tablet by mouth every 8 (eight) hours as needed for Nausea and Vomiting (N/V). [facility] dicyclomine 20 mg tablet 11-08 00:00: 00 09-11 00:00 :00 No [id number] 20mg Take 1 tablet by mouth 4 (four) times daily as needed for Abdominal pain. [facility] No known medications No Un brendan [facility] Vital Signs Vital Name Observation Time Observation Value Comments S ource Systolic blood pressure 2022-09-14 17:21:00 130 mm[Hg] [facility] Diastolic blood pressure 2022-09-14 17:21:00 93 mm[Hg] [facility] Heart rate 2022-09-14 17:21:00 87 /min [facility] Body temperature 2022-09-14 17:21:00 35.56 Zenaida [facility] Respiratory rate 2022-09-14 17:21:00 18 /min [facility] Oxygen saturation in Arterial blood by Pulse oximetry 2022-09-14 17:21:00 98 /min [facility] Body weight 2022-09-14 09:02:00 98.476 kg [facility] BMI 2022-09-14 09:02:00 32.06 kg/m2 [facility] Body height 2022-09-11 19:14:00 175.3 cm [facility] Systolic blood pressure 2020-11-08 21:00:00 136 mm[Hg] [facility] Diastolic blood pressure 2020-11-08 21:00:00 95 mm[Hg] [facility] Heart rate 2020-11-08 21:00:00 93 /min [facility] Respiratory rate 2020-11-08 21:00:00 16 /min [facility] Oxygen saturation in Arterial blood by Pulse oximetry 2020-11-08 21:00:00 98 /min [facility] Body temperature 2020-11-08 18:12:00 36.44 Zenaida [facility] Body height 2020-11-08 18:12:00 175.3 cm [facility] Body weight 2020-11-08 18:12:00 92.987 kg [facility] BMI 2020-11-08 18:12:00 30.27 kg/m2 [facility] Procedures Procedure Date / Time Performed Performing Clinician Source POCT GLUCOSE (AUTOMATED) 2022-09-14 17:22:00 Lazaro Hunter [facility] LIPASE 2022-09-14 11:57:00 Michael Jung [facility] BASIC METABOLIC PANEL (NA, K, CL, CO2, GLUCOSE, BUN, CREATININE, CA) 2022-09-14 11:57:00 Michael Jung [facility] LIPID PANEL ([id number])(TOTAL CHOLESTEROL, TRIGLYCERIDES, HDL) 2022-09-14 11:57:00 Michael Jung [facility] CBC WITH DIFF 2022-09-14 11:57:00 Michael Jung [facility] POCT GLUCOSE (AUTOMATED) 2022-09-14 02:35[facility] 2022-09-13 22:59[facility] 2022-09-13 17:43[facility] 2022-09-13 13:30:00 Elsa [facility] BASIC METABOLIC PANEL (NA, K, CL, CO2, GLUCOSE, BUN, CREATININE, CA) 2022-09-13 09:26:00 Emy Hyde [facility] POCT GLUCOSE (AUTOMATED) 2022-09-12 22:34:00 [facility]) 2022-09-12 17:15:00 Elsa [facility] POCT GLUCOSE (AUTOMATED) 2022-09-12 13:44:00 Elsa [facility] MAGNESIUM 2022-09-12 09:07:00 [facility] HEPATIC FUNCTION PANEL ([id number]) (ALB,T.PRO,BILI T,BU/BC,ALT,AST,ALK PHOS) 2022-09-12 09:07:00 Elsa [facility] BASIC METABOLIC PANEL (NA, K, CL, CO2, GLUCOSE, BUN, CREATININE, CA) 2022-09-12 09:07:00 Emy Hyde [facility] LIPID PANEL ([id number])(TOTAL CHOLESTEROL, TRIGLYCERIDES, HDL) 2022-09-12 09:07:00 Elsa [facility] CBC WITH DIFF 2022-09-12 09:07:00 Emy Hyde [facility] POCT GLUCOSE (AUTOMATED) 2022-09-12 09:01:00 Esa Ko [facility] POCT GLUCOSE (AUTOMATED) 2022-09-12 02:38:00 Esa Ko [facility] POCT GLUCOSE (AUTOMATED) 2022-09-11 22:42:00 Esa Ko [facility] POCT GLUCOSE (AUTOMATED) 2022-09-11 18:57:00 [facility] POCT GLUCOSE(AGE >30DAYS) 2022-09-11 17:22:00 [facility] POCT GLUCOSE (AUTOMATED) 2022-09-11 17:21:[address] [facility] [address] ABDOMEN PELVIS W CONTRAST 2022-09-11 16:38:00 [facility] POCT GLUCOSE (AUTOMATED) 2022-09-11 15:59:00 [facility] LIPASE 2022-09-11 15:48:00 Augustin Ignacio [facility] COMP. METABOLIC PANEL ([id number]) 2022-09-11 15:48:00 [facility] CBC WITH DIFF 2022-09-11 15:48:00 Augustin Ignacio [facility] GLYCOSYLATED HEMOGLOBIN (A1C) 2022-09-11 15:48:00 Esa Ko [facility] URINALYSIS 2022-09-11 15:46:00 Augustin Ignacio [facility] CONSENT/REFUSAL FOR DIAGNOSIS AND TREATMENT 2022-09-11 15:16:37 Doctor Unassigned, [place] [facility] POCT GLUCOSE (AUTOMATED) 2020-11-08 20:26:00 [facility] 2020-11-[facility] 18:29:00 [facility] HEPATIC FUNCTION PANEL ([id number]) (ALB,T.PRO,BILI T,BU/BC,ALT,AST,ALK PHOS) 2020-11-08 18:29:00 [facility] BASIC METABOLIC PANEL (NA, K, CL, CO2, GLUCOSE, BUN, CREATININE, CA) 2020-11-08 18:29:00 [facility] CBC WITH DIFF 2020-11-08 18:29:00 [facility] URINALYSIS 2020-11-08 18:29:00 [facility] NOTICE OF PRIVACY PRACTICES 2020-11-08 18:06:16 Doctor Unassigned, [place] [facility] CONSENT/REFUSAL FOR DIAGNOSIS AND TREATMENT 2020-11-08 18:06:04 Doctor Unassigned, [place] [facility] Encounters Start Date/Time End Date/Time Encounter Type Admission Type Attending [facility] Care Facility Care Department Encounter ID Source 2021-09-30 12:34:38 Outpatient [facility] [id number] [facility] 2023-10-06 09:30:00 2023-10-06 09:30:00 Outpatient MICHAEL BRAVO [id number] Parvin Knowles 2023-08-24 10:15:00 2023-08-24 10:15:00 Outpatient MICHAEL BRAVO [id number] Parvin Knowles 2022-09-15 00:00:00 2022-09-15 00:00:00 Transition of Care Ant Almanzarele Sherine CAYDENCarlito LISA ROUSE [id number] [facility] 2022-09-11 09:26:00 2022-09-14 13:00:00 Inpatient X TYREEMELINDA LAZARO [facility] [id number] [facility] 2022-09-11 09:26:00 2022-09-14 13:00:00 Hospital Encounter [facility] [place] [id number] [facility] 2020-11-08 12:16:00 2020-11-08 15:38:00 Emergency [facility] [id number] [facility] 2020-11-08 12:06:00 2020-11-08 12:06:00 [facility] [id number] [facility] 2020-11-08 00:00:00 2020-11-08 00:00:00 Orders Only Doctor Unassigned, [place] [facility] [id number] [facility] Results Test Description Test Time Test Comments Results Result Co mments Source [facility] GLUCOSE (AUTOMATED)2022-09-14 02:40:24* Test Item Value Reference Range Interpretation Comme nts POCT GLU (test code = 9384428205) 191 mg/dL 70-110 H Lab Interpretation (test cod e = 12244-0) Abnormal [facility] GLUCOSE (AUTOMATED)2022-09-13 23:13:20* Test Item Value Reference Range Interpretation Comme nts POCT GLU (test code = 1360975954) 126 mg/dL 70-110 H Lab Interpretation (test cod e = 67404-6) Abnormal [facility] GLUCOSE (AUTOMATED)2022-09-13 17:51:10* Test Item Value Reference Range Interpretation Comme nts POCT GLU (test code = 3924015432) 270 mg/dL 70-110 H Lab Interpretation (test cod e = 70474-2) Abnormal [facility] GLUCOSE (AUTOMATED)2022-09-13 14:08:01* Test Item Value Reference Range Interpretation Comme nts POCT GLU (test code = 6687406524) 177 mg/dL 70-110 H Lab Interpretation (test cod e = 66611-0) Abnormal [facility] GLUCOSE (AUTOMATED)2022-09-12 22:53:55* Test Item Value Reference Range Interpretation Comme nts POCT GLU (test code = 4055405002) 207 mg/dL 70-110 H Lab Interpretation (test cod e = 27142-3) Abnormal [facility] GLUCOSE (AUTOMATED)2022-09-12 18:09:02* Test Item Value Reference Range Interpretation Comme nts POCT GLU (test code = 0562675662) 92 mg/dL 70-110 Lab Interpretation (test cod e = 87776-2) Normal [facility]89068[facility]TOTAL CHOLESTEROL, TRIGLYCERIDES, HDL)2022-09-12 14:58:08* Test Item Value Reference Range Interpretation Comme nts CHOL (test code = 0233020800) 138 mg/dL 120-200 HDL (test code = 1545735371) 23 mg/dL See_Comment L [Automated messa ge] The system which generated this result transmitted reference range: >=40. The reference range was not used to interpret this result as normal/abnormal. HDLC RATIO (test code = 7827160795) See_Comment H [Automated messa ge] The system which generated this result transmitted reference range: <=5.0. The reference range was not used to interpret this result as normal/abnormal. TRIG (test code = 6649022706) 171 mg/dL 30-170 H LDL CHOL (test code = 79043-4) 81 mg/dL See_Comment [Automated [employer] ge] The system which generated this result transmitted reference range: <=160. The reference range was not used to interpret this result as normal/abnormal. VLDL (test code = 9982996311) 34 mg/dL 5-60 Lab Interpretation (test code = 66409-3) [facility]2022-09-12 13:54:38* Test Item Value Reference Range Interpretation Comme nts POCT GLU (test code = 6750593848) 84 mg/dL 70-110 Lab Interpretation (test cod e = 87794-9) Normal [facility] (44067[facility] (ALB,T.PRO,BILI T,BU/BC,ALT,AST,ALK PHOS)2022-09-12 13:03:03* Test Item Value Reference Range Interpretation Comme nts TOTAL BILI (test code = 8471948240) 1.0 mg/dL 0.1-1.1 BILI UNCON (test code = 9083523351) 0.8 mg/dL 0.1-1.1 BILI CONJ (test code = 8624103036) 0.0 mg/dL 0.0-0.3 T PROTEIN (test code = 8773738353) 6.7 g/dL 6.3-8.2 ALBUMIN (test code = 9650549623) 4.0 g/dL 3.5-5.0 ALK PHOS (test code = 7763392617) 106 U/L 34-122 ALTv (test code = 1742-6) 146 U/L 5-50 H AST(SGOT) (test code = 9493916930) 81 U/L 13-40 H Lab Interpretation (test cod e = 43222-9) [facility] 13:02:43* Test Item Value Reference Range Interpretation Comme nts MAGNESIUM (test code = 4514831764) 1.8 mg/dL 1.7-2.4 Lab Interpretation (test cod e = 26352-0) Normal [facility] (NA, K, CL, CO2, GLUCOSE, BUN, CREATININE, CA)2022-09-12 12:10:26* Test Item Value Reference Range Interpretation Comme nts NA (test code = 4493498902) 142 mmol/L 135-145 K (test code = 3795702263) 3.1 mmol/L 3.5-5.0 L CL (test code = 3032491839) 106 mmol/L 98-108 CO2 TOTAL (test code = 8890522021) 24 mmol/L 23-31 AGAP (test code = 9839623655) 2-16 BUN (test code = 1291543544) 8 mg/dL 7-23 GLUCOSE (test code = 1030348995) 73 mg/dL 70-110 CREATININE (test code = 3599774213) 0.72 mg/dL 0.60-1.25 CALCIUM (test code = 2286720621) 8.1 mg/dL 8.6-10.6 L eGFR (test code = 6450416013) mL/min/1.73m2 RAFAEL (test code = RAFAEL) Association [...] imaging tests). Lab Interpretation (test code = 22813-7) Abnormal [facility] WITH [id number] 11:46:12* Test Item Value Reference Range Interpretation [...] 35.0 g/dL 31.2-35.0 RDW-SD (test code = 19340-0) 36.0 fL 38.5-51.6 L RDW-CV (test code = 788-0) 11.9 % 12.1-15.4 L PLT (test code = 777-3) See_Comment [Automated messa ge] The system which generated this result transmitted reference range: 150 - 328 10*3/?L. The reference range was not used to interpret this result as normal/abnormal. MPV (test code = 50247-3) 10.7 fL 9.8-13.0 NRBC/100 WBC (test code = 0774004011) See_Comment [Automated uBeam ssage] The system which generated this result transmitted reference range: 0.0 - 10.0 /100 WBCs. The reference range was not used to interpret this result as normal/abnormal. NRBC x10^3 (test code = 2703009480) See_Comment [Automated messa ge] The system which generated this result transmitted reference range: 10*3/?L. The reference range was not used to interpret this result as normal/abnormal. GRAN MAT (NEUT) % (test code = 770-8) 50.2 % IMM GRAN % (test code = 5753479982) 0.40 % LYMPH % (test code = 736-9) 37.0 % MONO % (test code = 5905-5) 8.3 % EOS % (test code = 713-8) 3.6 % BASO % (test code = 706-2) 0.5 % GRAN MAT x10^3(ANC) (test code = 1645838997) 4.81 10*3/uL 1.99-6.95 IMM GRAN x10^3 (test code = 3261599177) 0.04 10*3/uL 0.00-0.06 LYMPH x10^3 (test code = 731-0) 3.56 10*3/uL 1.09-3.23 H MONO x10^3 (test code = 742-7) 0.80 10*3/uL 0.36-1.02 EOS x10^3 (test code = 711-2) 0.35 10*3/uL 0.06-0.53 BASO x10^3 (test code = 704-7) 0.05 10*3/uL 0.01-0.09 Lab Interpretation (test code = 86483-6) Abnormal [facility] GLUCOSE (AUTOMATED)2022-09-12 11:19:34* Test Item Value Reference Range Interpretation Comme nts POCT GLU (test code = 9780898680) 70 mg/dL 70-110 Lab Interpretation (test cod e = 91482-9) Normal [facility] GLUCOSE (AUTOMATED)2022-09-12 02:46:59* Test Item Value Reference Range Interpretation Comme nts POCT GLU (test code = 1491181068) 90 mg/dL 70-110 Lab Interpretation (test cod e = 67281-6) Normal [facility] GLUCOSE (AUTOMATED)2022-09-11 23:13:35* Test Item Value Reference Range Interpretation Comme nts POCT GLU (test code = 8455798366) 120 mg/dL 70-110 H Lab Interpretation (test cod e = 51617-5) [facility] 20:41:39* Test Item Value Reference Range Interpretation Comme nts HGB A1C (test code = 4548-4) 10.1 % 4.0-5.7 H RAFAEL (test code = RAFAEL) Reference RangesNormal: <5.7%Prediabetes: 5.7 - 6.4%Diabetes: > 6.5% Lab Interpretation (test code = 53369-0) Abnormal [facility] GLUCOSE (AUTOMATED)2022-09-11 19:01:23* Test Item Value Reference Range Interpretation Comme nts POCT GLU (test code = 4509289591) 283 mg/dL 70-110 H Lab Interpretation (test cod e = 05327-9) Abnormal [facility] GLUCOSE (AUTOMATED)2022-09-11 19:01:23* Test Item Value Reference Range Interpretation Comme nts POCT GLU (test code = 1714881497) 302 mg/dL 70-110 H Lab Interpretation (test cod e = 49211-3) Abnormal [facility] GLUCOSE (AUTOMATED)2022-09-11 19:01:23* Test Item Value Reference Range Interpretation Comme nts POCT GLU (test code = 8978910406) 277 mg/dL 70-110 H Lab Interpretation (test cod e = 05388-0) Abnormal [facility] GLUCOSE(AGE >30DAYS)2022-09-11 17:22:00* Test Item Value Reference Range Interpretation Comme nts POCT Glu (age>30days) (test code = 3342) 277 mg/dL 70-110 A Lab Interpretation (test cod e = 30604-0) [facility] [id number] 16:11:48* Test Item Value Reference Range Interpretation Comme nts NA (test code = 3195035925) 137 mmol/L 135-145 K (test code = 3197847874) 4.5 mmol/L 3.5-5.0 CL (test code = 1414812127) 102 mmol/L 98-108 CO2 TOTAL (test code = 2009339500) 22 mmol/L 23-31 L AGAP (test code = 9355470068) 2-16 BUN (test code = 8100825362) 15 mg/dL 7-23 GLUCOSE (test code = 6724491493) 318 mg/dL 70-110 H CREATININE (test code = 4796120838) 0.76 mg/dL 0.60-1.25 TOTAL BILI (test code = 6676740748) 1.5 mg/dL 0.1-1.1 H CALCIUM (test code = 9367710899) 9.1 mg/dL 8.6-10.6 T PROTEIN (test code = 3360184674) 7.7 g/dL 6.3-8.2 ALBUMIN (test code = 9505631253) 5.0 g/dL 3.5-5.0 ALK PHOS (test code = 5904527023) 124 U/L 34-122 H ALTv (test code = 1742-6) 173 U/L 5-50 H AST(SGOT) (test code = 0709340037) 76 U/L 13-40 H eGFR (test code = 0240439213) mL/min/1.73m2 RAFAEL (test code = RAFAEL) Association [...] imaging tests). Lab Interpretation (test code = 42721-1) [facility] [id number] 16:11:22* Test Item Value Reference Range Interpretation Comme nts LIPASE (test code = 6790622401) 22 U/L 0-220 Lab Interpretation (test cod e = 22952-0) [facility] Huhrmgvchiva1136-10-05 15:57:05* Test Item Value Reference Range Interpretation [...] g/dL 31.2-35.0 H RDW-SD (test code = 09986-5) 35.5 fL 38.5-51.6 L RDW-CV (test code = 788-0) 11.8 % 12.1-15.4 L PLT (test code = 777-3) See_Comment [Automated messa ge] The system which generated this result transmitted reference range: 150 - 328 10*3/?L. The reference range was not used to interpret this result as normal/abnormal. MPV (test code = 69669-8) 10.3 fL 9.8-13.0 NRBC/100 WBC (test code = 3790282229) See_Comment [Automated uBeam ssage] The system which generated this result transmitted reference range: 0.0 - 10.0 /100 WBCs. The reference range was not used to interpret this result as normal/abnormal. NRBC x10^3 (test code = 7724198888) See_Comment [Automated messa ge] The system which generated this result transmitted reference range: 10*3/?L. The reference range was not used to interpret this result as normal/abnormal. GRAN MAT (NEUT) % (test code = 770-8) 64.6 % IMM GRAN % (test code = 6026887610) 0.50 % LYMPH % (test code = 736-9) 25.3 % MONO % (test code = 5905-5) 7.3 % EOS % (test code = 713-8) 1.9 % BASO % (test code = 706-2) 0.4 % GRAN MAT x10^3(ANC) (test code = 7308187395) 7.62 10*3/uL 1.99-6.95 H IMM GRAN x10^3 (test code = 6738034225) 0.06 10*3/uL 0.00-0.06 LYMPH x10^3 (test code = 731-0) 2.98 10*3/uL 1.09-3.23 MONO x10^3 (test code = 742-7) 0.86 10*3/uL 0.36-1.02 EOS x10^3 (test code = 711-2) 0.22 10*3/uL 0.06-0.53 BASO x10^3 (test code = 704-7) 0.05 10*3/uL 0.01-0.09 Lab Interpretation (test code = 34336-2) Abnormal [facility] GLUCOSE (AUTOMATED)2020-11-08 20:30:00* Test Item Value Reference Range Interpretation Comme nts POCT GLU (test code = 1390707812) 181 mg/dL 70-110 H Lab Interpretation (test cod e = 90166-1) Abnormal [facility] Metabolic Panel (NA, K, CL, CO2, GLUCOSE, BUN, CREATININE, CA)2020-11-08 18:48:00* Test Item Value Reference Range Interpretation Comme nts NA (test code = 9597654734) 134 mmol/L 135-145 L K (test code = 0408744124) 4.0 mmol/L 3.5-5 CL (test code = 7406971618) 96 mmol/L 98-108 L CO2 TOTAL (test code = 1429409263) 29 mmol/L 23-31 AGAP (test code = 4002889325) 2-16 BUN (test code = 8055405225) 10 mg/dL 7-23 GLUCOSE (test code = 4117127207) 368 mg/dL 70-110 H CREATININE (test code = 1474780103) 0.58 mg/dL 0.6-1.25 L CALCIUM (test code = 4975629296) 9.1 mg/dL 8.6-10.6 eGFR Calculation (Non-) (test code = 5532698649) mL/min/1.73m2 eGFR Calculation () (test code = 2055423918) mL/min/1.73m2 RAFAEL (test code = RAFAEL) Association [...] imaging tests). Lab Interpretation (test code = 83854-1) [facility] (ALB, T.PRO, BILI T, BU/BC, ALT, AST, ALK PHOS)2020-11-08 18:48:00* Test Item Value Reference Range Interpretation Comme nts TOTAL BILI (test code = 5877953060) 0.8 mg/dL 0.1-1.1 BILI UNCON (test code = 5090101798) 0.8 mg/dL 0.1-1.1 BILI CONJ (test code = 6425240532) 0.0 mg/dL 0-0.3 T PROTEIN (test code = 1841448023) 7.8 g/dL 6.3-8.2 ALBUMIN (test code = 1041129111) 4.7 g/dL 3.5-5 ALK PHOS (test code = 5190727184) 147 U/L 34-122 H ALTv (test code = 1742-6) 48 U/L 5-50 AST(SGOT) (test code = 0780001014) 42 U/L 13-40 H Lab Interpretation (test cod e = 10597-6) [facility] [id number] 18:48:00* Test Item Value Reference Range Interpretation Comme nts LIPASE (test code = 0083745763) 27 U/L 0-220 Lab Interpretation (test cod e = 03055-4) [facility] 18:39:00* Test Item Value Reference Range Interpretation Comme nts APPEARANCE (test code = 0735180927) Clear Clear COLOR (test code = 8128867064) Yellow Yellow PH (test code = 8371057763) 4.8-8.0 SP GRAVITY (test code = 4211355264) 1.003-1.030 H GLU U QUAL (test code = 3613063043) 500 mg/dL Normal A BLOOD (test code = 9607198029) Negative Negative KETONES (test code = 0022020550) 5 mg/dL Negative A PROTEIN (test code = 2887-8) Negative Negative UROBILIN (test code = 9382451671) Normal Normal BILIRUBIN (test code = 3806326652) Negative Negative NITRITE (test code = 8609434195) Negative Negative LEUK ALYSHA (test code = 8558968393) Negative Negative RBC/HPF (test code = 4960536188) See_Comment [Automated messa ge] The system which generated this result transmitted reference range: 0 - 3 HPF. The reference range was not used to interpret this result as normal/abnormal. WBC/HPF (test code = 8631409627) See_Comment [Automated messa ge] The system which generated this result transmitted reference range: 0 - 5 HPF. The reference range was not used to interpret this result as normal/abnormal. BACTERIA (test code = 5044206619) Negative Negative Lab Interpretation (test code = 70899-9) Abnormal [facility] with Pimgdtwkgwvd1662-16-01 18:36:00* Test Item Value Reference Range Interpretation [...] g/dL 31.2-35 H RDW-SD (test code = 45453-8) 33.7 fL 38.5-51.6 L RDW-CV (test code = 788-0) 11.5 % 12.1-15.4 L PLT (test code = 777-3) See_Comment H [Automated messa ge] The system which generated this result transmitted reference range: 150 - 328 10*3/?L. The reference range was not used to interpret this result as normal/abnormal. MPV (test code = 78961-6) 10.2 fL 9.8-13 NRBC/100 WBC (test code = 5560696494) See_Comment [Automated me ssage] The system which generated this result transmitted reference range: 0.0 - 10.0 /100 WBCs. The reference range was not used to interpret this result as normal/abnormal. NRBC x10^3 (test code = 4051300933) <0.01 See_Comment [Automated messa ge] The system which generated this result transmitted reference range: 10*3/?L. The reference range was not used to interpret this result as normal/abnormal. GRAN MAT (NEUT) % (test code = 770-8) 60.3 % IMM GRAN % (test code = 5872173842) 0.70 % LYMPH % (test code = 736-9) 29.2 % MONO % (test code = 5905-5) 4.7 % EOS % (test code = 713-8) 3.9 % BASO % (test code = 706-2) 1.2 % GRAN MAT x10^3(ANC) (test code = 6661328499) 6.44 10*3/uL 1.99-6.95 IMM GRAN x10^3 (test code = 4527328742) 0.07 10*3/uL 0-0.06 H LYMPH x10^3 (test code = 731-0) 3.12 10*3/uL 1.09-3.23 MONO x10^3 (test code = 742-7) 0.50 10*3/uL 0.36-1.02 EOS x10^3 (test code = 711-2) 0.42 10*3/uL 0.06-0.53 BASO x10^3 (test code = 704-7) 0.13 10*3/uL 0.01-0.09 H Lab Interpretation (test code = 99769-7) [facility]"
[2023-09-16 02:08] LABS: Absolute Lymphocytes (CBC) 2.8 K/uL (0.7-4.9); Lymphocytes % 30.7 % (15.3-44.8); MCV 84.3 fL (80-100); MPV 8.8 fL (7.6-11.3); Platelets 244 thou/uL (152-406); RBC Red Blood Cell Count 5.46 M/uL (4.33-5.43)
[2023-09-16 02:24] LABS: Albumin 3.5 g/dL (3.4-5.0); Bilirubin Total 0.7 mg/dL (0.2-1.0); Potassium 3.8 mEq/L (3.5-5.1)
--- NOTE | 2023-09-16 02:59 | EDPHYS ---
Physician Documentation [facility] Name: Jimenez Patrick Age: 28 yrs Sex: Male : 1995 Arrival Date: 09/16/2023 Time: 01:15 Bed 14 Private MD: ED Physician Vinyaak Sterling HPI: 09/16 04:31 This 28 yrs old Male presents to ER via Ambulatory with complaints of rt Abdominal Pain. 04:31 Patient with history of chronic pancreatitis presents to the ED with epigastric pain, rt nonradiating. Associated nausea without vomiting. Denies diarrhea. Denies other acute complaints at this time, symptoms are moderate severity, no other aggravating elevating factors.. Historical: - Allergies: 01:35 NKA; 8 - Home Meds: 01:35 Humulin 70/30 U-100 Insulin 100 unit/mL (70-30) Sub-Q crtg [Active]; - PMHx: 01:35 Chronic Pancreatitis; Diabetes - IDDM; - PSHx: 01:35 Cholecystectomy; I\T\D; stents x 2 in pancreas; - Immunization history:: Client reports having NOT received the Covid vaccine. Flu vaccine is not up to date. - Social history:: Smoking status: Patient denies any tobacco usage or history of. Patient/guardian denies using alcohol, street drugs. - Family history:: not pertinent. - Code Status:: Full code. ROS: 04:31 Constitutional: Negative for fever, chills, and weight loss, Cardiovascular: Negative rt for chest pain, palpitations, and edema, Respiratory: Negative for shortness of breath, cough, wheezing, and pleuritic chest pain, MS/Extremity: Negative for injury and deformity, Skin: Negative for injury, rash, and discoloration, Neuro: Negative for headache, weakness, numbness, tingling, and seizure, Psych: Negative for depression, anxiety, suicide ideation, homicidal ideation, and hallucinations, 04:31 Abdomen/GI: Positive for abdominal pain, nausea, Exam: 04:31 Constitutional: This is a well developed, well nourished patient who is awake, alert, rt and in no acute distress. Head/Face: Normocephalic, atraumatic. Chest/axilla: Normal chest wall appearance and motion. Nontender with no deformity. No lesions are appreciated. Cardiovascular: Regular rate and rhythm with a normal S1 and S2. No gallops, murmurs, or rubs. Normal PMI, no JVD. No pulse deficits. Respiratory: Lungs have equal breath sounds bilaterally, clear to auscultation and percussion. No rales, rhonchi or wheezes noted. No increased work of breathing, no retractions or nasal flaring. Skin: Warm, dry with normal turgor. Normal color with no rashes, no lesions, and no evidence of cellulitis. MS/ Extremity: Pulses equal, no cyanosis. Neurovascular intact. Full, normal range of motion. Neuro: Awake and alert, GCS 15, oriented to person, place, time, and situation. Cranial nerves II-XII grossly intact. Motor strength 5/5 in all extremities. Sensory grossly intact. Cerebellar exam normal. Normal gait. Psych: Awake, alert, with orientation to person, place and time. Behavior, mood, and affect are within normal limits. 04:31 Abdomen/GI: No focal abdominal tenderness, no distention, rebound, Vital Signs: 01:33 BP 152 / 97; Pulse 81; Resp 18; Temp 98.5(O); Pulse Ox 100% on R/A; Weight 96.16 kg km8 (R); Height 5 ft. 9 in. (R); Pain 6/10; 01:47 BP 152 / 103; Pulse 76; Resp 20; Pulse Ox 100% ; Pain 9/10; la4 03:47 BP 142 / 98; Pulse 71; Resp 18; Temp 98.2(O); Pulse Ox 100% on R/A; la4 01:33 Body Mass Index 31.31 (96.16 kg, 175.26 cm) [facility] 01:33 Pain Scale: Adult km8 01:47 Pain Scale: Adult la4 01:47 epigastric pain la4 [place] Coma Score: 01:47 Eye Response: spontaneous(4). Motor Response: obeys commands(6). Verbal Response: la4 oriented(5). Total: 15. 03:47 Eye Response: spontaneous(4). Motor Response: obeys commands(6). Verbal Response: la4 oriented(5). Total: 15. MDM: 01:47 Patient medically screened. rt 04:31 Differential diagnosis: Pancreatitis, gastritis, acid reflux. Data reviewed: vital rt signs, nurses notes, lab test result(s). I considered the following discharge prescriptions or medication management in the emergency department Medications were administered in the Emergency Department. See MAR. Test considered but Not performed: CT: Patient with any previous abdominal CT scans. He has benign labs, benign abdominal examination. Believe that risk of radiation is greater than risk of missed pathology. I discussed this with the patient is in agreement this plan.. Care significantly affected by the following chronic conditions: Pancreatitis. Counseling: I had a detailed discussion with the patient and/or guardian regarding the historical points, exam findings, and any diagnostic results supporting the discharge/admit diagnosis, lab results, the need for outpatient follow up, to return to the emergency department if symptoms worsen or persist or if there are any questions or concerns that arise at home. Response to treatment: the patient's symptoms have markedly improved after treatment. 09/16 01:51 Order name: CBC with Diff; Complete Time: 02:25 rt 09/16 01:51 Order name: CMP; Complete Time: 02:25 rt 09/16 01:51 Order name: Lipase; Complete Time: 02:25 rt Administered Medications: 02:09 Drug: NS 0.9% IV 1000 ml IV at 1 bolus Per protocol; 1000 mL bolus Route: IV; Rate: 1 la4 bolus; Site: right forearm; 03:36 Follow up: IV Status: Completed infusion; IV Intake: 1000ml la4 02:10 Drug: morphine IVP or IV 4 mg IVP once over 4 mins Route: IVP; Infused Over: 4 mins; la4 Site: right forearm; 03:37 Follow up: Response: No adverse reaction; Pain is decreased la4 02:10 Drug: Ondansetron IVP 4 mg IVP once; over 2 minutes Route: IVP; Site: right forearm; la4 03:37 Follow up: Response: No adverse reaction la4 03:47 Drug: Alum-Mag Hydroxide-Simeth PO Suspension (200 mg-200 mg-20 mg/5 mL) 30 ml PO once la4 Route: PO; Disposition Summary: 09/16/23 02:58 Discharge Ordered Notes: Location: Home rt Problem: an acute exacerbation rt Symptoms: have improved rt Condition: Stable rt Diagnosis - Epigastric pain rt Followup: rt - With: Private Physician - When: 2 - 3 days - Reason: Discharge Instructions: - Discharge Summary Sheet rt - Abdominal Pain, Adult rt Forms: - Medication Reconciliation Form rt - Thank You Letter rt - Antibiotic Education rt - Prescription Opioid Use rt - Patient Portal Instructions rt - Leadership Thank You Letter rt Prescriptions: - acetaminophen-codeine 300-30 mg Oral tablet - take 1 tablet ORAL route every 6 hours as needed for pain; 12 tablet; Refills: rt 0, Product Selection Permitted - Protonix 40 mg Oral Tablet - take 1 tablet ORAL route once daily; 30 tablet; Refills: 0, Product Selection rt Permitted Signatures: Dispatcher [employer] Vinayak Oliveros MD MD rt Alysha Lira RN RN km8 Pancho Tidwell RN RN la4
--- NOTE | 2023-09-16 02:59 | ER ---
Nurse's Notes [facility] Name: Jimenez Patrick Age: 28 yrs Sex: Male : 1995 Arrival Date: 09/16/2023 Time: 01:15 Bed 14 Private MD: Diagnosis: Epigastric pain Presentation: 09/16 01:33 Chief complaint: Patient states: epigastric pain for 5 days; was seen Tuesday for km8 same complaint, no relief since visit; hx of Pancreatitis ; no n/v/d or fever/chills. Coronavirus screen: Client denies travel out of the [place] in the last 14 days. Ebola Screen: No symptoms or risks identified at this time. Initial Sepsis Screen: Does the patient meet any 2 criteria? No. Patient's initial sepsis screen is negative. Does the patient have a suspected source of infection? No. Patient's initial sepsis screen is negative. Risk Assessment: Do you want to hurt yourself or someone else? Patient reports no desire to harm self or others. Onset of symptoms was September 12, 2023. 01:33 Method Of Arrival: Ambulatory km8 01:33 Acuity: MOSES 3 km8 Triage Assessment: 01:35 General: Appears in no apparent distress. comfortable, Behavior is calm, cooperative, km8 appropriate for age. Pain: Complains of pain in epigastric area Pain currently is 6 out of 10 on a pain scale. Quality of pain is described as sharp, stabbing, Is continuous. EENT: No signs and/or symptoms were reported regarding the EENT system. Neuro: Level of Consciousness is awake, alert, obeys commands, Oriented to person, place, time, situation. Cardiovascular: Denies chest pain, shortness of breath, Capillary refill < 3 seconds Patient's skin is warm and dry. Respiratory: Airway is patent Respiratory effort is even, unlabored, Respiratory pattern is regular, symmetrical. GI: Abdomen is flat, Reports upper abdominal pain. : No signs and/or symptoms were reported regarding the genitourinary system. Derm: Skin is intact, is healthy with good turgor, Skin is dry, Skin is pink, warm \T\ dry. normal, Skin temperature is warm. Musculoskeletal: No signs and/or symptoms reported regarding the musculoskeletal system. Circulation, motion, and sensation intact. Range of motion: intact in all extremities. Historical: - Allergies: 01:35 NKA; 8 - Home Meds: 01:35 Humulin 70/30 U-100 Insulin 100 unit/mL (70-30) Sub-Q crtg [Active]; - PMHx: 01:35 Chronic Pancreatitis; Diabetes - IDDM; - PSHx: 01:35 Cholecystectomy; I\T\D; stents x 2 in pancreas; - Immunization history:: Client reports having NOT received the Covid vaccine. Flu vaccine is not up to date. - Social history:: Smoking status: Patient denies any tobacco usage or history of. Patient/guardian denies using alcohol, street drugs. - Family history:: not pertinent. - Code Status:: Full code. Screenin:50 [facility] ED Fall Risk Assessment (Adult) History of falling in the last 3 months, la4 including since admission No falls in past 3 months (0 pts) Confusion or Disorientation No (0 pts) Intoxicated or Sedated No (0 pts) Impaired Gait No (0 pts) Mobility Assist Device Used No (0 pt) Altered Elimination No (0 pt) Score/Fall Risk Level 0 - 2 = Low Risk Maintained a safe environment, Hourly rounding (assess needs \T\ fall precautionary measures) done. Abuse screen: Denies threats or abuse. Denies injuries from another. Abuse screen: Denies threats or abuse. Denies injuries from another. Nutritional screening: No deficits noted. Tuberculosis screening: No symptoms or risk factors identified. Assessment: 01:47 General: Appears in no apparent distress. Behavior is calm, cooperative, appropriate la4 for age. Pain: Complains of pain in epigastric area Pain does not radiate. Pain currently is 9 out of 10 on a pain scale. Quality of pain is described as stabbing, Pain began 7 days. Neuro: No deficits noted. Boyer Agitation-Sedation Scale (RASS): 0 - Alert and Calm Level of Consciousness is awake, alert, confused, Oriented to person, place, time, situation. Cardiovascular: No deficits noted. Respiratory: No deficits noted. Airway is patent Respiratory effort is even, unlabored, Respiratory pattern is regular, symmetrical, Breath sounds are clear bilaterally. GI: Bowel sounds present X 4 quads. Abd is soft Abdomen is tender to palpation in epigastric area. : No deficits noted. No signs and/or symptoms were reported regarding the genitourinary system. Vital Signs: 01:33 BP 152 / 97; Pulse 81; Resp 18; Temp 98.5(O); Pulse Ox 100% on R/A; Weight 96.16 kg km8 (R); Height 5 ft. 9 in. (R); Pain 6/10; 01:47 BP 152 / 103; Pulse 76; Resp 20; Pulse Ox 100% ; Pain 9/10; la4 03:47 BP 142 / 98; Pulse 71; Resp 18; Temp 98.2(O); Pulse Ox 100% on R/A; la4 01:33 Body Mass Index 31.31 (96.16 kg, 175.26 cm) km8 01:33 Pain Scale: Adult km8 01:47 Pain Scale: Adult la4 01:47 epigastric pain la4 Vitals: 01:47 Cardiac Rhythm Assessment. la4 Sadi Coma Score: 01:47 Eye Response: spontaneous(4). Motor Response: obeys commands(6). Verbal Response: la4 oriented(5). Total: 15. 03:47 Eye Response: spontaneous(4). Motor Response: obeys commands(6). Verbal Response: la4 oriented(5). Total: 15. ED Course: 01:28 Patient arrived in ED. gm2 01:35 Triage completed. km8 01:35 Arm band placed on right wrist. km8 01:39 Pancho Tidwell RN is Primary Nurse. la4 01:44 Vinayak Sterling MD is Attending Physician. rt 01:50 No apparent distress. Awaiting ED provider evaluation. la4 01:50 Patient has correct armband on for positive identification. Placed in gown. Bed in low la4 position. Call light in reach. Side rails up X2. Provided Education on: plan of care. 01:50 No provider procedures requiring assistance completed. Initial lab(s) drawn, by me, la4 sent to lab. Inserted saline lock: 18 gauge in right forearm, using aseptic technique. Blood collected. 02:01 Lipase Sent. la4 02:01 CMP Sent. la4 02:01 CBC with Diff Sent. la4 03:47 IV discontinued, intact, bleeding controlled, No redness/swelling at site. Pressure la4 dressing applied. Administered Medications: 02:09 Drug: NS 0.9% IV 1000 ml IV at 1 bolus Per protocol; 1000 mL bolus Route: IV; Rate: 1 la4 bolus; Site: right forearm; 03:36 Follow up: IV Status: Completed infusion; IV Intake: 1000ml la4 02:10 Drug: morphine IVP or IV 4 mg IVP once over 4 mins Route: IVP; Infused Over: 4 mins; la4 Site: right forearm; 03:37 Follow up: Response: No adverse reaction; Pain is decreased la4 02:10 Drug: Ondansetron IVP 4 mg IVP once; over 2 minutes Route: IVP; Site: right forearm; la4 03:37 Follow up: Response: No adverse reaction la4 03:47 Drug: Alum-Mag Hydroxide-Simeth PO Suspension (200 mg-200 mg-20 mg/5 mL) 30 ml PO once la4 Route: PO; Medication: 01:50 VIS not applicable for this client. la4 Intake: 03:36 IV: 1000ml; Total: 1000ml. la4 Outcome: 02:58 Discharge ordered by . rt 03:47 Discharged to home ambulatory, la4 03:47 Condition: stable 03:47 Discharge instructions given to patient, Instructed on discharge instructions, follow up and referral plans. no drinking with medication, medication usage, Demonstrated understanding of instructions, follow-up care, medications, Prescriptions given X 2, 03:48 Patient left the ED. la4 Signatures: Vinayak Sterling MD MD rt Kat Ortega gm2 Alysha Lira RN RN km8 Pancho Tidwell RN RN la4
[2023-09-16 10:42] VITALS: BP 142/98; TEMP 98.2; O2SAT 100
== END ==
LOC: ER 01:15
DX: R10.13 Epigastric pain (principal); E11.9 Type 2 diabetes mellitus without complications; Z79.4 Long term (current) use of insulin; Z28.310 Unvaccinated for COVID-19
CPT/HCPCS: 96361; 85025; 36415; 83690; 80053; 96375; 96374; 99284; J2405; J7030

== ENCOUNTER → 2023-11-10 | Emergency (ER) | payer OTHER ==
[~2023-11-10] MED LIST changes: +DIAZEPAM 10 MG/2 ML INJ SYRINGE ONE; +LORazepam 2 MG/ML VIAL ONE; -MAGNES/ALUMIN/SIMET 30ML UCUP ONE; -MORPHINE 4 MG/ML SYR ONE; -ONDANSETRON 4 MG/2 ML VIAL ONE
--- OUTSIDE RECORDS SUMMARY | 2023-11-10 07:48 | XMS REPORT | Continuity of Care Document ---
Author Name Unknown Address [address] [facility]. 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 Name Role Phone PCP, PATIENT DOES NOT HAVE A Primary Care Physic adry Unavailable BROOKLYNN AGUILAR Attending Clinician Unavailable NANCY WEST Attending Clinician Unavailabl MICHAEL Lopez Attending Clinician Unavailable [id number] Attending Clinician Unavailable Nabil Almanzar RN Attending Clinician Unavail able LAZARO HUNTER Attending Clinician Unavailable Augustin Kincaid Attending Clinician [phone] Esa Ko DO Attending Clinician [phone] Lazaro Hunter MD Attending Clinician [phone] Syeda Alberts Attending Clinician [phone] SYEDA PERSAUD Attending Clinician Unavailable Doctor Unassigned, Chaplin Attending Clinician U navailable LAZARO HUNTER Admitting Clinician Unavailable Lazaro Hunter MD Admitting Clinician [phone] Payers Payer Name Policy Type Policy Number Effective Date Expirati on Date Source AECRESENCIO SAENZ [facility] 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 ON 9 [id number] 2023 00:00:00 Problems Condition Name Condition Details Condition Category Status Onset Date Resolution Date Last Treatment Date Treating Clinician Comments Source DM (diabetes mellitus) (multi HCC) DM (diabetes mellitus) (multi HCC) Disease Active 10-06 00:00: 00 Parvin Seybold - Externa l Type 1 diabetes mellitus with hyperglyce tess (multi HCC) Type 1 diabetes mellitus with hyperglyce tess (multi HCC) Disease Active 10-06 00:00: 00 Parvin Seybold - Externa l Chronic pancreatit is (multi HCC) Chronic pancreatit is (multi HCC) Disease Active 10-06 00:00: 00 Parvin Seybold - Externa l HTN (hypertens ion) HTN (hypertens ion) Disease Active 10-06 00:00: 00 Parvin Seybold - Externa l Elevated liver function tests Elevated liver function tests Disease Active 10-06 00:00: 00 Parvin Seybold - Externa l Acute on chronic pancreatit is Acute on chronic pancreatit is Disease Active 09-12 00:00: 00 [facility] Epigastric pain Epigastric pain Disease Active 09-11 00:00: 00 [facility] Obesity (BMI 30-39.9) Obesity (BMI 30-39.9) Disease Active 04-16 00:00: 00 [facility] Mesenteric adenitis Mesenteric adenitis Disease Active 2009-09 00:00: 00 [facility] Pancreatit is Pancreatit is Disease Active 2009-09 00:00: 00 [facility] Abdominal pain Abdominal pain Disease Active 2009-09 00:00: 00 [facility] Other acne Other acne Disease Active 04-13 00:00: 00 [facility] Viral warts Viral warts Disease Active 04-13 00:00: 00 Overview: Formattin g of this note might be different from the original. 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 [facility] Allergies, Adverse Reactions, Alerts Allergy Name Allergy Type Status Severity Reaction(s) Onset Date Inactive Date Treating Clinician Comments Source NO KNOWN ALLERGIE S Drug Class Active [facility] Social History Social Habit Start Date Stop Date Quantity Comments Source History SDOH Social Connections Get Together [facility] History SDOH Social Connections Cheondoism [facility] History SDOH Social Connections Membership [facility] History SDOH Social Connections Meetings [facility] Sexual orientation Nicolasa Knowles - External History of tobacco use Cigarette Smoker Parvin maravilla - External History of Social function 2023-10-06 00:00:00 2023-10-06 00:00:00 Parvin Knowles - External Education - What is the highest level of school you have completed or the highest degree you have received? 2023-10-06 00:00:00 2023-10-06 00:00:00 High school graduate Parvin Knowles - External Alcohol Comment 2023-10-06 00:00:00 2023-10-06 00:00:00 occasionally Parvin Knowles - External Cigarettes smoked current (pack per day) - Reported 2023-10-06 00:00:00 2023-10-06 00:00:00 Parvin Knowles - External Cigarette pack-years 2023-10-06 00:00:00 2023-10-06 00:00:00 Parvin Knowles - External Tobacco use and exposure 2023-10-06 00:00:00 2023-10-06 00:00:00 Smokeless tobacco non-user Parvin Knowles - External Alcohol intake 2023-10-06 00:00:00 2023-10-06 00:00:00 Current drinker of alcohol (finding) Parvin Knowles - External History SDOH Physical Activity MPS 2022-09-13 00:00:00 2022-09-13 00:00:00 3 [facility] History SDOH Financial 2022-09-13 00:00:00 2022-09-13 00:00:00 5 [facility] History SDOH Food Worry 2022-09-13 00:00:00 2022-09-13 00:00:00 1 [facility] History SDOH Food Scarcity 2022-09-13 00:00:00 2022-09-13 00:00:00 1 [facility] History SDOH Transport Med 2022-09-13 00:00:00 2022-09-13 00:00:00 2 [facility] History SDOH Transport Non-Med 2022-09-13 00:00:00 2022-09-13 00:00:00 2 [facility] History SDOH Alcohol Frequency 2022-09-13 00:00:00 2022-09-13 00:00:00 1 [facility] History SDOH Alcohol Std Drinks 2022-09-13 00:00:00 2022-09-13 00:00:00 0 [facility] History SDOH Alcohol Binge 2022-09-13 00:00:00 2022-09-13 00:00:00 1 [facility] History SDOH Social Connections Phone 2022-09-13 00:00:00 2022-09-13 00:00:00 5 [facility] History SDOH Social Connections Living 2022-09-13 00:00:00 2022-09-13 00:00:00 5 [facility] History SDOH Physical Activity DPW 2022-09-13 00:00:00 2022-09-13 00:00:00 4 [facility] Exposure to SARS-CoV-2 (event) 2022-09-01 00:00:00 2022-09-11 13:58:00 Not sure [facility] Sex Assigned At 1995 00:00:00 1995 00:00:00 Parvin Knowles - External Smoking Status Start Date Stop Date Source Occasional tobacco smoker 2023-10-06 00:00:00 Parvin Knowles - External Ex-smoker 2022-09-12 00:00:00 2022-09-12 00:00:00 [facility] Unknown if ever smoked [facility] Medications Ordered Medication Name Filled Medication Name Start Date Stop Date Current Medication? Ordering Clinician Indication Dosage Frequency Signature (SIG) Comments Components Source Insulin NPH Isophane & Regular (NOVOLIN 70/30 SC) 10-06 10:25: 45 10-06 00:00 :00 No 60U Inject 60 units into the skin daily. Parvin Lee Externa l Metoprolol Tartrate (LOPRESSOR) 25 MG oral Tablet 10-06 00:00: 00 Yes [id number] 25mg Take 1 tablet (25 mg total) by mouth daily. Parvin siegel Insulin Glargine (Basaglar KwikPen) 100 UNIT/ML subcutaneou s Solution Pen-injecto r 10-06 00:00: 00 Yes [id number] 9101 40 units sc daily. Parvin siegel Continuous Blood Gluc Professor Of Geology (Dexcom G6 Professor Of Geology) does not apply Device 10-06 00:00: 00 Yes [id number] Check BS continuous ly. Parvin Gonsales l Continuous Blood Gluc Sensor (Dexcom G6 Sensor) does not apply Misc 10-06 00:00: 00 Yes [id number] Check BS continuous ly. Parvin siegel Continuous Blood Gluc Transmit (Dexcom G6 Transmitter ) does not apply Misc 10-06 00:00: 00 Yes [id number] Check BS continousl y. Parvin siegel Gabapentin 100 MG oral Capsule 10-06 00:00: 00 Yes [id number] 100mg Q.[id number] 3D Take 1 capsule (100 mg total) by mouth 3 times daily as needed (pain). Parvin siegel Acetaminoph en-Codeine 300-30 MG oral Tablet 09-16 00:00: 00 10-06 00:00 :00 No 1{tbl} Q.25D Take 1 tablet by mouth every 6 hours as needed for pain FOR PAIN. Parvin siegel insulin NPH and regular human 70-30 (NOVOLIN 70/30 U-100 INSULIN) 100 unit/mL (70-30) injection 09-14 12:13: 02 09-14 00:00 :00 No 60U inject 60 Units under the skin 2 (two) times daily before breakfast and dinner. [facility] insulin NPH and regular human 70-30 (NOVOLIN 70/30 U-100 INSULIN) 100 unit/mL (70-30) injection 09-14 00:00: 00 Yes [id number] 60U inject 60 Units under the skin 2 (two) times daily before breakfast and dinner. [facility] insulin NPH and regular human 70-30 (NOVOLIN 70/30 U-100 INSULIN) 100 unit/mL (70-30) injection 09-14 00:00: 00 Yes [id number] 60U inject 60 Units under the skin 2 (two) times daily before breakfast and dinner. [facility] atorvastati n 40 mg tablet 09-14 00:00: 00 10-15 05:59 :00 No [id number] 40mg Take 1 tablet by mouth at bedtime for 30 days. [facility] lisinopriL 10 mg tablet 09-14 00:00: 00 10-15 05:59 :00 No [id number] 10mg Take 1 tablet by mouth in the morning and 1 tablet in the evening. Do all this for 30 days. [facility] atorvastati n 40 mg tablet 09-14 00:00: 00 10-15 05:59 :00 No [id number] 40mg Take 1 tablet by mouth at bedtime for 30 days. [facility] lisinopriL 10 mg tablet 09-14 00:00: 00 10-15 05:59 :00 No [id number] 10mg Take 1 tablet by mouth in the morning and 1 tablet in the evening. Do all this for 30 days. [facility] morpHINE (4 mg/mL) injection 4 mg 09-13 09:53: 10 Yes 4mg 4 mg, Slow IV Push, Q4HPRN, Starting on Tue09/13/22 at 0353, Until Discontinu ed, Routine, Pain (scale 7-10) [facility] atorvastati n (LIPITOR) tablet 40 mg 09-13 03:00: 00 Yes 40mg 40 mg, Oral, QHS, First dose on 09/12/22 at 2100, Until Discontinu ed, Routine [facility] lisinopriL (PRINIVIL,Z ESTRIL) tablet 10 mg 09-12 14:45: 00 Yes 10mg 10 mg, Oral, BID, First dose (after last modificati on) on 09/12/22 at 0845, Until Discontinu ed, Routine [facility] KCL (KLOR-CON M20) tablet 40 mEq 09-12 13:45: 00 09-12 14:15 :00 No 40meq 40 mEq, Oral, ONCE, 1 dose, On 09/12/22 at 0745, Routine [facility] potassium chloride in water 10 mEq/100 mL RTU 10 mEq 09-12 13:00: 00 09-12 16:20 :00 No 10meq 10 mEq, IV Piggyback, Q1H, 2 doses, First dose on Tue09/12/22 at 0700, Last dose on Tue09/12/22 at 0800, Administer over 60 Minutes, 100 mL [facility] lisinopriL (PRINIVIL,Z ESTRIL) tablet 5 mg 09-12 05:00: 00 09-12 14:35 :46 No 5mg 5 mg, Oral, BID, First dose on 09/11/22 at 2300, Until Discontinu ed, Routine [facility] lactated ringers IV infusion 1,000 mL 09-12 03:15: 00 Yes 1000mL at 150 mL/hr, 1,000 mL, IV Infusion, CONTINUOUS , Starting on 09/11/22 at 2115, Until Discontinu ed, Routine [facility] Sliding Scale Insulin - Lispro (HumaLOG) + Fsbg Testing 09-11 23:00: 00 Yes Subcutaneo us, TID MEALS+HS, First dose on 09/11/22 at 1700, Until Discontinu ed, Routine [facility] enoxaparin (LOVENOX) injection 40 mg 09-11 23:00: 00 Yes 40mg 40 mg, Subcutaneo us, DAILY, First dose on 09/11/22 at 1700, Until Discontinu ed, Routine [facility] lactated ringers IV infusion 1,000 mL 09-11 19:15: 00 09-12 03:05 :27 No 1000mL at 125 mL/hr, 1,000 mL, IV Infusion, CONTINUOUS , Starting on 09/11/22 at 1315, Until 09/11/22 at 2105, Routine [facility] lactated ringers IV infusion 1,000 mL 09-11 19:00: 00 09-11 19:56 :58 No 1000mL at 999 mL/hr, 1,000 mL, Intravenou s, ONCE, 1 dose, On 09/11/22 at 1300, Routine [facility] NaCl 0.9% (NS) IV infusion 1,000 mL 09-11 18:15: 00 09-11 19:00 :00 No 1000mL at 999 mL/hr, Intravenou s, ONCE, 1 dose, On 09/11/22 at 1215, MARITA [facility] FENTanyl PF (SUBLIMAZE (PF)) injection 50 mcg 09-11 18:05: 00 09-11 18:10 :00 No 50ug 50 mcg, Slow IV Push, ONCE, 1 dose, On 09/11/22 at 1215, MARITA [facility] ondansetron (ZOFRAN (PF)) injection 4 mg 09-11 18:05: 00 09-11 18:09 :00 No 4mg 4 mg, Slow IV Push, ONCE, 1 dose, On 09/11/22 at 1215, MARITA [facility] glucagon (GLUCAGEN DIAGNOSTIC KIT) injection 1 mg 09-11 18:04: 12 Yes 1mg 1 mg, Intramuscu lar, PRN, Starting on 09/11/22 at 1204, Until Discontinu ed, MARITA, Blood Glucose < or = 70 mg/dL and patient is unable to swallow or has mental changes. [facility] dextrose 50 % in water (D50W) injection 25 mL 09-11 18:04: 12 Yes 25mL 25 mL, Slow IV Push, PRN, Starting on 09/11/22 at 1204, Until Discontinu ed, MARITA, Blood Glucose < or = 70 mg/dL and patient is unable to swallow or has mental status changes. [facility] ondansetron (ZOFRAN (PF)) injection 4 mg 09-11 18:04: 03 Yes 4mg 4 mg, Slow IV Push, Q6HPRN, Starting on 09/11/22 at 1204, Until Discontinu ed, Routine, Nausea and Vomiting (N/V) [facility] morpHINE (2 mg/mL) injection 2 mg 09-11 18:03: 52 09-12 18:02 :52 No 2mg 2 mg, Slow IV Push, Q4HPRN, Starting on 09/11/22 at 1203, Until 09/12/22 at 1202, Routine, Pain (scale 7-10) [facility] HYDROcodone -acetaminop hen (NORCO 5) 5-325 mg tablet 1 tablet 09-11 18:03: 48 09-13 18:02 :48 No 1{tbl} 1 tablet, Oral, Q6HPRN, Starting on 09/11/22 at 1203, Until 09/13/22 at 1202, Routine, Pain (scale 4-6) [facility] acetaminoph en (TYLENOL) tablet 650 mg 09-11 18:03: 39 Yes 650mg 650 mg, Oral, Q6HPRN, Starting on 09/11/22 at 1203, Until Discontinu ed, Routine, Pain (scale 1-3) [facility] insulin NPH and regular human 70-30 (70-30 U-100 INSULIN) 100 unit/mL (70-30) injection 60 Units 09-11 18:03: 00 09-11 18:54 :00 No 60U 60 Units, Subcutaneo us, ONCE, 1 dose, On 09/11/22 at 1215, MARITA [facility] FENTanyl PF (SUBLIMAZE (PF)) injection 50 mcg 09-11 16:38: 00 09-11 16:41 :00 No 50ug 50 mcg, Slow IV Push, ONCE, 1 dose, On 09/11/22 at 1045, MARITA [facility] iopamidol (ISOVUE 370-500 mL) injection 78 mL 09-11 16:35: 00 09-11 16:45 :00 No [id number] 78mL 78 mL, Intravenou s, ONCE, 1 dose, On 09/11/22 at 1045, Routine [facility] ondansetron (ZOFRAN (PF)) injection 4 mg 09-11 15:45: 00 09-11 15:50 :00 No [id number] 4mg 4 mg, Slow IV Push, ONCE, 1 dose, On 09/11/22 at 0945, [facility] famotidine (PEPCID (PF)) injection 20 mg 09-11 15:45: 00 09-11 15:50 :00 No [id number] 20mg 20 mg, Slow IV Push, ONCE, 1 dose, On 09/11/22 at 0945, [facility] NaCl 0.9% (NS) IV infusion 1,000 mL 09-11 15:33: 00 09-11 17:00 :00 No [id number] 1000mL at 999 mL/hr, Intravenou s, ONCE, 1 dose, On 09/11/22 at 0945, [facility] sodium chloride (NS) injection 5 mL 09-11 15:32: 59 Yes [id number] 5mL 5 mL, Intravenou s, PRN, Starting on 09/11/22 at 0932, Until Discontinu ed, Routine, IV line flushing [facility] maalox:diph enhydrAMINE :lidocaine 2 % viscous 1:1:1 (FIRST-MOUT HWASH BLM) oral suspension 15 mL 11-08 20:45: 00 11-08 20:39 :00 No 15mL 15 mL, Oral, ONCE, 1 dose, 11/08/20 at 1445, [facility] insulin regular human (HUMULIN R) injection 9 Units 11-08 20:30: 00 11-08 19:39 :00 No 9U 9 Units, Slow IV Push, ONCE, 1 dose, 11/08/20 at 1430, STAT [facility] ondansetron (ZOFRAN (PF)) injection 4 mg 11-08 19:45: 00 11-08 18:49 :00 No 4mg 4 mg, Slow IV Push, ONCE, 1 dose, 11/08/20 at 1345, [facility] morpHINE injection 4 mg 11-08 19:45: 00 11-08 18:49 :00 No 4mg 4 mg, Slow IV Push, ONCE, 1 dose, 11/08/20 at 1345, [facility] NaCl 0.9% (NS) bolus infusion 1,000 mL 11-08 19:30: 00 11-08 20:37 :00 No 1000mL at 999 mL/hr, 1,000 mL, IV Infusion, ONCE, 1 dose, 11/08/20 at 1330, [facility] NaCl 0.9% (NS) bolus infusion 1,000 mL 11-08 18:30: 00 11-08 19:39 :00 No 1000mL at 999 mL/hr, 1,000 mL, IV Infusion, ONCE, 1 dose, 11/08/20 at 1230, [facility] ondansetron (ZOFRAN ODT) 4 mg disintegrat ing tablet 11-08 00:00: 00 Yes [id number] 4mg Take 1 tablet by mouth every 8 (eight) hours as needed for Nausea and Vomiting (N/V). [facility] dicyclomine 20 mg tablet 11-08 00:00: 00 Yes [id number] 20mg Take 1 tablet by mouth 4 (four) times daily as needed for Abdominal pain. [facility] ondansetron (ZOFRAN ODT) 4 mg disintegrat ing tablet 11-08 00:00: 00 09-11 00:00 :00 No [id number] 4mg Take 1 tablet by mouth every 8 (eight) hours as needed for Nausea and Vomiting (N/V). [facility] dicyclomine 20 mg tablet 3-06 00:00: 00 09-11 00:00 :00 No [id number] 20mg Take 1 tablet by mouth 4 (four) times daily as needed for Abdominal pain. [facility] No known medications No Un brendan [facility] Vital Signs Vital Name Observation Time Observation Value Comments S ource Systolic blood pressure 2023-10-06 16:21:00 135 mm[Hg] Parvin Greenybo ld - External Diastolic blood pressure 2023-10-06 16:21:00 90 mm[Hg] Parvin Greenybo ld - External Heart rate 2023-10-06 15:48:00 123 /min Jennifer davenport Seybrenita - External Body temperature 2023-10-06 15:48:00 36.61 Zenaida Parvin Greenybold - External Respiratory rate 2023-10-06 15:48:00 20 /min Parvin Greenybold - External Body height 2023-10-06 15:48:00 177.8 cm Emma gallardo Seybold - External Body weight 2023-10-06 15:48:00 95.255 kg Emma gallardo Seybold - External BMI 2023-10-06 15:48:00 30.13 kg/m2 Emma gallardo Seybold - External Oxygen saturation in Arterial blood by Pulse oximetry 2023-10-06 15:48:00 100 /min Parvin Brunsono ld - External Systolic blood pressure 2022-09-14 17:21:00 130 mm[Hg] [facility] acute hospital Diastolic blood pressure 2022-09-14 17:21:00 93 mm[Hg] [facility] acute hospital Heart rate 2022-09-14 17:21:00 87 /min [facility] Body temperature 2022-09-14 17:21:00 35.56 Zenaida [facility] Respiratory rate 2022-09-14 17:21:00 18 /min [facility] Oxygen saturation in Arterial blood by Pulse oximetry 2022-09-14 17:21:00 98 /min [facility] acute hospital Body weight 2022-09-14 09:02:00 98.476 kg [facility] BMI 2022-09-14 09:02:00 32.06 kg/m2 [facility] Body height 2022-09-11 19:14:00 175.3 cm [facility] Systolic blood pressure 2020-11-08 21:00:00 136 mm[Hg] [facility] acute hospital Diastolic blood pressure 2020-11-08 21:00:00 95 mm[Hg] General acute hospital Heart rate 2020-11-08 21:00:00 93 /min [facility] Respiratory rate 2020-11-08 21:00:00 16 /min [facility] Oxygen saturation in Arterial blood by Pulse oximetry 2020-11-08 21:00:00 98 /min [facility] acute [facility] Body temperature 2020-11-08 18:12:00 36.44 Zenaida [facility] Body height 2020-11-08 18:12:00 175.3 cm [facility] Body weight 2020-11-08 18:12:00 92.987 kg [facility] BMI 2020-11-08 18:12:00 30.27 kg/m2 [facility] Procedures Procedure Date / Time Performed Performing Clinician Source POCT GLUCOSE (AUTOMATED) 2022-09-14 17:22:00 Lazaro Hunter [facility] LIPASE 2022-09-14 11:57:00 Michael Jung [facility] BASIC METABOLIC PANEL (NA, K, CL, CO2, GLUCOSE, BUN, CREATININE, CA) 2022-09-14 11:57:00 Michael Jung [facility] LIPID PANEL ([id number])(TOTAL CHOLESTEROL, TRIGLYCERIDES, HDL) 2022-09-14 11:57:00 Michael Jung [facility] CBC WITH DIFF 2022-09-14 11:57:00 Michael Jung [facility] POCT GLUCOSE (AUTOMATED) 2022-09-14 02:35:00 Lazaro Hunter [facility] POCT GLUCOSE (AUTOMATED) 2022-09-13 22:59:[facility] 2022-09-13 17:43:00 Elsa [facility] POCT GLUCOSE (AUTOMATED) 2022-09-13 13:30:00 Elsa [facility] BASIC METABOLIC PANEL (NA, K, CL, CO2, GLUCOSE, BUN, CREATININE, CA) 2022-09-13 09:26:00 Emy Hyde [facility] POCT GLUCOSE (AUTOMATED) 2022-09-12 22:34:00 Elsa [facility] POCT GLUCOSE (AUTOMATED) 2022-09-12 17:15:00 Elsa [facility] POCT GLUCOSE (AUTOMATED) 2022-09-12 13:44:00 Elsa [facility] MAGNESIUM 2022-09-12 09:07:00 Elsa [facility] HEPATIC FUNCTION PANEL ([id number]) (ALB,T.PRO,BILI T,BU/BC,ALT,AST,ALK PHOS) 2022-09-12 09:07:00 Elsa [facility] BASIC METABOLIC PANEL (NA, K, CL, CO2, GLUCOSE, BUN, CREATININE, CA) 2022-09-12 09:07:00 Emy Hyde [facility] LIPID PANEL ([id number])(TOTAL CHOLESTEROL, TRIGLYCERIDES, HDL) 2022-09-12 09:07:00 Elsa [facility] CBC WITH DIFF 2022-09-12 09:07:00 Emy Hyde [facility] POCT GLUCOSE (AUTOMATED) 2022-09-12 09:01:00 Maikel [facility] POCT GLUCOSE (AUTOMATED) 2022-09-12 02:38:00 Esa Ko [facility] POCT GLUCOSE (AUTOMATED) 2022-09-11 22:42:00 Esa Ko [facility] POCT GLUCOSE (AUTOMATED) 2022-09-11 18:57:00 Augustin Ignacio [facility] POCT GLUCOSE(AGE >30DAYS) 2022-09-11 17:22:00 Augustin Ignacio [facility] POCT GLUCOSE (AUTOMATED) 2022-09-11 17:21:00 Mateus [facility] CT ABDOMEN PELVIS W CONTRAST 2022-09-11 16:38:00 Mateus [facility] POCT GLUCOSE (AUTOMATED) 2022-09-11 15:59:00 Mateus [facility] LIPASE 2022-09-11 15:48:00 Mateus [facility] COMP. METABOLIC PANEL ([id number]) 2022-09-11 15:48:00 Mateus [facility] CBC WITH DIFF 2022-09-11 15:48:00 Mateus [facility] GLYCOSYLATED HEMOGLOBIN (A1C) 2022-09-11 15:48:00 Esa Ko [facility] URINALYSIS 2022-09-11 15:46:00 Mateus [facility] CONSENT/REFUSAL FOR DIAGNOSIS AND TREATMENT 2022-09-11 15:16:37 Doctor Unassigned, Chaplin [facility] POCT GLUCOSE (AUTOMATED) 2020-11-08 20:26:00 [facility] LIPASE 2020-11-08 18:29[facility] ([id number]) (ALB,T.PRO,BILI T,BU/BC,ALT,AST,ALK PHOS) 2020-11-08 18:29[facility]IC [facility] (NA, K, CL, CO2, GLUCOSE, BUN, CREATININE, CA) 2020-11-08 18:29:00 [facility] CBC WITH DIFF 2020-11-08 18:29:00 Syeda Persaud [facility] URINALYSIS 2020-11-08 18:29:00 Ramses [facility] NOTICE OF PRIVACY PRACTICES 2020-11-08 18:06:16 Doctor Unassigned, [place] [facility] CONSENT/REFUSAL FOR DIAGNOSIS AND TREATMENT 2020-11-08 18:06:04 Doctor Unassigned, [place] [facility] Encounters Start Date/Time End Date/Time Encounter Type Admission Type Attending [facility] Care Department Encounter ID Source 2021-09-30 12:34:38 Outpatient [facility] [id number] [facility] 2024-02-21 15:30:00 2024-02-21 15:30:00 Outpatient BROOKLYNN AGUILAR PARVIN HERN[facility]NDEZ [id number] [facility]24-[facility]-23 14:15:00 2024-01-23 14:15:00 Outpatient ERICNANCY Esteban PARVIN HERNÁNDEZ [id number] [facility] 2023-11-29 10:45:00 2023-11-29 10:45:00 Outpatient PREZAS MICHAEL HERNÁNDEZ [id number] [facility] 2023-11-07 00:00:00 2023-11-07 00:00:00 Outpatient PREZAS MICHAEL HERNÁNDEZ [id number] [facility] 2023-10-27 00:00:00 2023-10-27 00:00:00 Outpatient PREZAS MICHAEL HERNÁNDEZ [id number] [facility] 2023-10-26 00:00:00 2023-10-26 00:00:00 Outpatient PREZAS, MICHAEL HERNÁNDEZ [id number] [facility] 2023-10-26 00:00:00 2023-10-26 00:00:00 Outpatient PREZAS MICHAEL HERNÁNDEZ [id number] [facility] 2023-10-19 16:45:00 2023-10-19 16:45:00 Outpatient PREZAS MICHAEL HERNÁNDEZ [id number] [facility] 2023-10-18 14:30:00 2023-10-18 14:30:00 Outpatient PARVIN HERNÁNDEZ [id number] [facility] 2023-10-10 00:00:00 2023-10-10 00:00:00 Outpatient PREZAS, MICHAEL HERNÁNDEZ [id number] [facility] 2023-10-07 00:00:00 2023-10-07 00:00:00 Outpatient PREZAS, MICHAEL HERNÁNDEZ [id number] [facility] 2023-10-06 10:45:00 2023-10-06 10:45:00 Outpatient LAB90 PARVIN HERNÁNDEZ [id number] Parvin [facility] 2023-10-06 09:30:00 2023-10-06 09:30:00 Outpatient MICHAEL BRAVO [id number] [facility] 2023-08-24 10:15:00 2023-08-24 10:15:00 Outpatient MICHAEL BRAVO [id number] Parvin [facility] 2022-09-15 00:00:00 2022-09-15 00:00:00 Transition of Care Nabil Almanzar 1..840.114 350.1.13.10 4.2.7.2.686 [id number] [facility] 2022-09-11 09:26:00 2022-09-14 13:00:00 Inpatient X LAZARO HUNTER [facility] [id number] [facility] 2022-09-11 09:26:00 2022-09-14 13:00:00 Hospital Encounter [facility] [place] 1.840.114 350.1.13.10 4.2.7.2.686 [id number] [facility] 2020-11-08 12:16:00 2020-11-08 15:38:00 Emergency Ramses Syeda [facility] 1..840.114 350.1.13.10 4.2.7.2.686 [id number] [facility] 2020-11-08 12:06:00 2020-11-08 12:06:00 Emergency X PERSAUD SYEDA [facility] ERT [id number] [facility] 2020-11-08 00:00:00 2020-11-08 00:00:00 Orders Only Doctor Unassigned, [place] [facility] 1.840.114 350.1.13.10 4.2.7.2.686 [id number] [facility] Results Test Description Test Time Test Comments Results Result Co mments Source [facility] GLUCOSE (AUTOMATED)2022-09-14 02:40:24* Test Item Value Reference Range Interpretation Comme nts POCT GLU (test code = 8195402926) 191 mg/dL 70-110 H Lab Interpretation (test cod e = 96166-3) Abnormal [facility] GLUCOSE (AUTOMATED)2022-09-13 23:13:20* Test Item Value Reference Range Interpretation Comme nts POCT GLU (test code = 2724991332) 126 mg/dL 70-110 H Lab Interpretation (test cod e = 16339-5) Abnormal [facility] GLUCOSE (AUTOMATED)2022-09-13 17:51:10* Test Item Value Reference Range Interpretation Comme nts POCT GLU (test code = 2439293650) 270 mg/dL 70-110 H Lab Interpretation (test cod e = 30930-7) Abnormal [facility] GLUCOSE (AUTOMATED)2022-09-13 14:08:01* Test Item Value Reference Range Interpretation Comme nts POCT GLU (test code = 4429677348) 177 mg/dL 70-110 H Lab Interpretation (test cod e = 42571-6) Abnormal [facility] GLUCOSE (AUTOMATED)2022-09-12 22:53:55* Test Item Value Reference Range Interpretation Comme nts POCT GLU (test code = 7750981403) 207 mg/dL 70-110 H Lab Interpretation (test cod e = 47261-3) Abnormal [facility] GLUCOSE (AUTOMATED)2022-09-12 18:09:02* Test Item Value Reference Range Interpretation Comme nts POCT GLU (test code = 7892481858) 92 mg/dL 70-110 Lab Interpretation (test cod e = 77819-9) [facility] (22723)(TOTAL CHOLESTEROL, TRIGLYCERIDES, HDL)2022-09-12 14:58:08* Test Item Value Reference Range Interpretation Comme nts CHOL (test code = 7999129581) 138 mg/dL 120-200 HDL (test code = 8793404817) 23 mg/dL See_Comment L [Automated messa ge] The system which generated this result transmitted reference range: >=40. The reference range was not used to interpret this result as normal/abnormal. HDLC RATIO (test code = 5395398859) See_Comment H [Automated messa ge] The system which generated this result transmitted reference range: <=5.0. The reference range was not used to interpret this result as normal/abnormal. TRIG (test code = 1651219499) 171 mg/dL 30-170 H LDL CHOL (test code = 99759-8) 81 mg/dL See_Comment [Automated messa ge] The system which generated this result transmitted reference range: <=160. The reference range was not used to interpret this result as normal/abnormal. VLDL (test code = 8743561461) 34 mg/dL 5-60 Lab Interpretation (test code = 71734-5) [facility]normal [facility]2022-09-12 13:54:38* Test Item Value Reference Range Interpretation Comme [facility] POCT GLU (test code = 5732449691) 84 mg/dL 70-110 Lab Interpretation (test cod e = 91574-3) Normal [facility]AT[facility] FUNCTION PANEL (60568) (ALB,T.PRO,BILI T,BU/BC,ALT,AST,ALK PHOS)2022-09-12 13:03:03* Test Item Value Reference Range Interpretation Comme [facility] TOTAL BILI (test code = 4956917562) 1.0 mg/dL 0.1-1.1 BILI UNCON (test code = 9170365355) 0.8 mg/dL 0.1-1.1 BILI CONJ (test code = 9923518760) 0.0 mg/dL 0.0-0.3 T PROTEIN (test code = 5950870724) 6.7 g/dL 6.3-8.2 ALBUMIN (test code = 8752430247) 4.0 g/dL 3.5-5.0 ALK PHOS (test code = 5436512252) 106 U/L 34-122 ALTv (test code = 1742-6) 146 U/L 5-50 H AST(SGOT) (test code = 0549901348) 81 U/L 13-40 H Lab Interpretation (test cod e = 03036-7) Abnormal [facility]2023-01-08 13:02:43* Test Item Value Reference Range Interpretation Comme nts MAGNESIUM (test code = 6545320683) 1.8 mg/dL 1.7-2.4 Lab Interpretation (test cod e = 66619-0) Normal [facility] (NA, K, CL, CO2, GLUCOSE, BUN, CREATININE, CA)2022-09-12 12:10:26* Test Item Value Reference Range Interpretation Comme nts NA (test code = 0104554266) 142 mmol/L 135-145 K (test code = 9348891058) 3.1 mmol/L 3.5-5.0 L CL (test code = 3395508078) 106 mmol/L 98-108 CO2 TOTAL (test code = 5898798340) 24 mmol/L 23-31 AGAP (test code = 6129862209) 2-16 BUN (test code = 1518136320) 8 mg/dL 7-23 GLUCOSE (test code = 3780522079) 73 mg/dL 70-110 CREATININE (test code = 8553355065) 0.72 mg/dL 0.60-1.25 CALCIUM (test code = 9446855947) 8.1 mg/dL 8.6-10.6 L eGFR (test code = 2898324736) mL/min/1.73m2 RAFAEL (test code = RAFAEL) Association [...] imaging tests). Lab Interpretation (test code = 63615-4) Abnormal [facility] WITH [id number] 11:46:12* Test Item Value Reference Range Interpretation Comme nts WBC (test code = 6690-2) See_Comment [Automated [employer]] The system which generated this result transmitted reference range: 4.20 - 10.70 10*3/?L. The reference range was not used to interpret this result as normal/abnormal. RBC (test code = 789-8) See_Comment [Automated [employer]] The system which generated this result transmitted [...] 35.0 g/dL 31.2-35.0 RDW-SD (test code = 75969-9) 36.0 fL 38.5-51.6 L RDW-CV (test code = 788-0) 11.9 % 12.1-15.4 L PLT (test code = 777-3) See_Comment [Automated [employer]] The system which generated this result transmitted reference range: 150 - 328 10*3/?L. The reference range was not used to interpret this result as normal/abnormal. MPV (test code = 03554-1) 10.7 fL 9.8-13.0 NRBC/100 WBC (test code = 2326445064) See_Comment [Automated me ssage] The system which generated this result transmitted reference range: 0.0 - 10.0 /100 WBCs. The reference range was not used to interpret this result as normal/abnormal. NRBC x10^3 (test code = 6613830938) See_Comment [Automated messa ge] The system which generated this result transmitted reference range: 10*3/?L. The reference range was not used to interpret this result as normal/abnormal. GRAN MAT (NEUT) % (test code = 770-8) 50.2 % IMM GRAN % (test code = 3660403497) 0.40 % LYMPH % (test code = 736-9) 37.0 % MONO % (test code = 5905-5) 8.3 % EOS % (test code = 713-8) 3.6 % BASO % (test code = 706-2) 0.5 % GRAN MAT x10^3(ANC) (test code = 3582025808) 4.81 10*3/uL 1.99-6.95 IMM GRAN x10^3 (test code = 1251902045) 0.04 10*3/uL 0.00-0.06 LYMPH x10^3 (test code = 731-0) 3.56 10*3/uL 1.09-3.23 H MONO x10^3 (test code = 742-7) 0.80 10*3/uL 0.36-1.02 EOS x10^3 (test code = 711-2) 0.35 10*3/uL 0.06-0.53 BASO x10^3 (test code = 704-7) 0.05 10*3/uL 0.01-0.09 Lab Interpretation (test code = 08058-3) Abnormal [facility] GLUCOSE (AUTOMATED)2022-09-12 11:19:34* Test Item Value Reference Range Interpretation Comme nts POCT GLU (test code = 3989117303) 70 mg/dL 70-110 Lab Interpretation (test cod e = 71985-3) Normal [facility] GLUCOSE (AUTOMATED)2022-09-12 02:46:59* Test Item Value Reference Range Interpretation Comme nts POCT GLU (test code = 7882850556) 90 mg/dL 70-110 Lab Interpretation (test cod e = 46168-8) Normal [facility] GLUCOSE (AUTOMATED)2022-09-11 23:13:35* Test Item Value Reference Range Interpretation Comme nts POCT GLU (test code = 9873044284) 120 mg/dL 70-110 H Lab Interpretation (test cod e = 63516-2) Abnormal [facility] ClubGlycosylated Hemoglobin (A1C)2022-09-11 20:41:39* Test Item Value Reference Range Interpretation Comme nts HGB A1C (test code = 4548-4) 10.1 % 4.0-5.7 H RAFAEL (test code = RAFAEL) Reference RangesNormal: <5.7%Prediabetes: 5.7 - 6.4%Diabetes: > 6.5% Lab Interpretation (test code = 68548-9) Abnormal [facility] GLUCOSE (AUTOMATED)2022-09-11 19:01:23* Test Item Value Reference Range Interpretation Comme nts POCT GLU (test code = 0872624705) 302 mg/dL 70-110 H Lab Interpretation (test cod e = 78358-8) Abnormal [facility] GLUCOSE (AUTOMATED)2022-09-11 19:01:23* Test Item Value Reference Range Interpretation Comme nts POCT GLU (test code = 6674954703) 277 mg/dL 70-110 H Lab Interpretation (test cod e = 52992-0) Abnormal [facility] GLUCOSE (AUTOMATED)2022-09-11 19:01:23* Test Item Value Reference Range Interpretation Comme nts POCT GLU (test code = 4777851760) 283 mg/dL 70-110 H Lab Interpretation (test cod e = 75990-1) Abnormal [facility] GLUCOSE(AGE >30DAYS)2022-09-11 17:22:00* Test Item Value Reference Range Interpretation Comme nts POCT Glu (age>30days) (test code = 3342) 277 mg/dL 70-110 A Lab Interpretation (test cod e = 26869-1) Abnormal [facility] ClubComplete Metabolic [id number] 16:11:48* Test Item Value Reference Range Interpretation Comme nts NA (test code = 3588526304) 137 mmol/L 135-145 K (test code = 5486406449) 4.5 mmol/L 3.5-5.0 CL (test code = 1163622241) 102 mmol/L 98-108 CO2 TOTAL (test code = 5615780769) 22 mmol/L 23-31 L AGAP (test code = 6754764885) 2-16 BUN (test code = 1791191045) 15 mg/dL 7-23 GLUCOSE (test code = 5142394876) 318 mg/dL 70-110 H CREATININE (test code = 5182984902) 0.76 mg/dL 0.60-1.25 TOTAL BILI (test code = 1154591256) 1.5 mg/dL 0.1-1.1 H CALCIUM (test code = 3619235084) 9.1 mg/dL 8.6-10.6 T PROTEIN (test code = 5156853364) 7.7 g/dL 6.3-8.2 ALBUMIN (test code = 0578412222) 5.0 g/dL 3.5-5.0 ALK PHOS (test code = 8768387402) 124 U/L 34-122 H ALTv (test code = 1742-6) 173 U/L 5-50 H AST(SGOT) (test code = 8773017761) 76 U/L 13-40 H eGFR (test code = 7088169571) mL/min/1.73m2 RAFAEL (test code = RAFAEL) Association [...] imaging tests). Lab Interpretation (test code = 88710-7) Abnormal [facility] ClubLipase, [id number] 16:11:22* Test Item Value Reference Range Interpretation Comme nts LIPASE (test code = 3984821138) 22 U/L 0-220 Lab Interpretation (test cod e = 12762-7) Normal [facility] ClubCB with [id number] 15:57:05* Test Item Value Reference Range Interpretation Comme nts WBC (test code = 6690-2) See_Comment H [Automated [employer]] The system which generated this result transmitted reference range: 4.20 - 10.70 10*3/?L. The reference range was not used to interpret this result as normal/abnormal. RBC (test code = 789-8) See_Comment [Automated [employer]] The system which generated this result transmitted [...] g/dL 31.2-35.0 H RDW-SD (test code = 47881-6) 35.5 fL 38.5-51.6 L RDW-CV (test code = 788-0) 11.8 % 12.1-15.4 L PLT (test code = 777-3) See_Comment [Automated messa ge] The system which generated this result transmitted reference range: 150 - 328 10*3/?L. The reference range was not used to interpret this result as normal/abnormal. MPV (test code = 12928-3) 10.3 fL 9.8-13.0 NRBC/100 WBC (test code = 2588472602) See_Comment [Automated [employer]] The system which generated this result transmitted reference range: 0.0 - 10.0 /100 WBCs. The reference range was not used to interpret this result as normal/abnormal. NRBC x10^3 (test code = 6468930317) See_Comment [Automated messa ge] The system which generated this result transmitted reference range: 10*3/?L. The reference range was not used to interpret this result as normal/abnormal. GRAN MAT (NEUT) % (test code = 770-8) 64.6 % IMM GRAN % (test code = 6389806332) 0.50 % LYMPH % (test code = 736-9) 25.3 % MONO % (test code = 5905-5) 7.3 % EOS % (test code = 713-8) 1.9 % BASO % (test code = 706-2) 0.4 % GRAN MAT x10^3(ANC) (test code = 5926482654) 7.62 10*3/uL 1.99-6.95 H IMM GRAN x10^3 (test code = 2423626221) 0.06 10*3/uL 0.00-0.06 LYMPH x10^3 (test code = 731-0) 2.98 10*3/uL 1.09-3.23 MONO x10^3 (test code = 742-7) 0.86 10*3/uL 0.36-1.02 EOS x10^3 (test code = 711-2) 0.22 10*3/uL 0.06-0.53 BASO x10^3 (test code = 704-7) 0.05 10*3/uL 0.01-0.09 Lab Interpretation (test code = 89215-2) Abnormal [facility] GLUCOSE (AUTOMATED)2020-11-08 20:30:00* Test Item Value Reference Range Interpretation Comme [facility] POCT GLU (test code = 1430992867) 181 mg/dL 70-110 H Lab Interpretation (test cod e = 80180-7) Abnormal [facility] Metabolic Panel (NA, K, CL, CO2, GLUCOSE, BUN, CREATININE, CA)2020-11-08 18:48:00* Test Item Value Reference Range Interpretation Comme [facility] NA (test code = 4535628075) 134 mmol/L 135-145 L K (test code = 8542567655) 4.0 mmol/L 3.5-5 CL (test code = 2061120488) 96 mmol/L 98-108 L CO2 TOTAL (test code = 4760293165) 29 mmol/L 23-31 AGAP (test code = 7417936132) 2-16 BUN (test code = 5689529395) 10 mg/dL 7-23 GLUCOSE (test code = 7625136226) 368 mg/dL 70-110 H CREATININE (test code = 2953851494) 0.58 mg/dL 0.6-1.25 L CALCIUM (test code = 1918982901) 9.1 mg/dL 8.6-10.6 eGFR Calculation (Non-) (test code = 8819830184) mL/min/1.73m2 eGFR Calculation () (test code = 0801567048) mL/min/1.73m2 RAFAEL (test code = RAFAEL) Association [...] imaging tests). Lab Interpretation (test code = 93117-7) Abnormal [facility] ClubHepatic Function Panel (ALB, T.PRO, BILI T, BU/BC, ALT, AST, ALK PHOS)2020-11-08 18:48:00* Test Item Value Reference Range Interpretation Comme nts TOTAL BILI (test code = 5348239258) 0.8 mg/dL 0.1-1.1 BILI UNCON (test code = 4891277172) 0.8 mg/dL 0.1-1.1 BILI CONJ (test code = 2452725152) 0.0 mg/dL 0-0.3 T PROTEIN (test code = 4174469136) 7.8 g/dL 6.3-8.2 ALBUMIN (test code = 6130545927) 4.7 g/dL 3.5-5 ALK PHOS (test code = 3682107689) 147 U/L 34-122 H ALTv (test code = 1742-6) 48 U/L 5-50 AST(SGOT) (test code = 6912799545) 42 U/L 13-40 H Lab Interpretation (test cod e = 16071-0) Abnormal [facility] ClubLipase [id number] 18:48:00* Test Item Value Reference Range Interpretation Comme nts LIPASE (test code = 3460942250) 27 U/L 0-220 Lab Interpretation (test cod e = 02244-9) Normal [facility] ClubUrinalysis2021-03-06 18:39:00* Test Item Value Reference Range Interpretation Comme nts APPEARANCE (test code = 7274242377) Clear Clear COLOR (test code = 2435183032) Yellow Yellow PH (test code = 4972449795) 4.8-8.0 SP GRAVITY (test code = 2790091046) 1.003-1.030 H GLU U QUAL (test code = 1359735138) 500 mg/dL Normal A BLOOD (test code = 0716550055) Negative Negative KETONES (test code = 7572704572) 5 mg/dL Negative A PROTEIN (test code = 2887-8) Negative Negative UROBILIN (test code = 6061581552) Normal Normal BILIRUBIN (test code = 0319752556) Negative Negative NITRITE (test code = 6199480248) Negative Negative LEUK ALYSHA (test code = 7088241895) Negative Negative RBC/HPF (test code = 0528035974) See_Comment [Automated messa ge] The system which generated this result transmitted reference range: 0 - 3 HPF. The reference range was not used to interpret this result as normal/abnormal. WBC/HPF (test code = 0306418560) See_Comment [Automated messa ge] The system which generated this result transmitted reference range: 0 - 5 HPF. The reference range was not used to interpret this result as normal/abnormal. BACTERIA (test code = 1712232504) Negative Negative Lab Interpretation (test code = 01689-2) Abnormal [facility] with [id number] 18:36:00* Test Item Value Reference Range Interpretation [...] g/dL 31.2-35 H RDW-SD (test code = 52976-2) 33.7 fL 38.5-51.6 L RDW-CV (test code = 788-0) 11.5 % 12.1-15.4 L PLT (test code = 777-3) See_Comment H [Automated [employer]] The system which generated this result transmitted reference range: 150 - 328 10*3/?L. The reference range was not used to interpret this result as normal/abnormal. MPV (test code = 13258-0) 10.2 fL 9.8-13 NRBC/100 WBC (test code = 4873956922) See_Comment [Automated [employer]] The system which generated this result transmitted reference range: 0.0 - 10.0 /100 WBCs. The reference range was not used to interpret this result as normal/abnormal. NRBC x10^3 (test code = 9043328428) <0.01 See_Comment [Automated [employer]] The system which generated this result transmitted reference range: 10*3/?L. The reference range was not used to interpret this result as normal/abnormal. GRAN MAT (NEUT) % (test code = 770-8) 60.3 % IMM GRAN % (test code = 1108054767) 0.70 % LYMPH % (test code = 736-9) 29.2 % MONO % (test code = 5905-5) 4.7 % EOS % (test code = 713-8) 3.9 % BASO % (test code = 706-2) 1.2 % GRAN MAT x10^3(ANC) (test code = 1288083160) 6.44 10*3/uL 1.99-6.95 IMM GRAN x10^3 (test code = 6077093359) 0.07 10*3/uL 0-0.06 H LYMPH x10^3 (test code = 731-0) 3.12 10*3/uL 1.09-3.23 MONO x10^3 (test code = 742-7) 0.50 10*3/uL 0.36-1.02 EOS x10^3 (test code = 711-2) 0.42 10*3/uL 0.06-0.53 BASO x10^3 (test code = 704-7) 0.13 10*3/uL 0.01-0.09 H Lab Interpretation (test code = 60780-0) Abnormal [facility]"
[2023-11-10 08:33] LABS: Absolute Basophils 0.1 K/uL (0-0.5); Absolute Lymphocytes (CBC) 2.4 K/uL (0.7-4.9); Basophils % 0.8 % (0-1.3); Lymphocytes % 22.9 % (15.3-44.8); MCV 82.8 fL (80-100); MPV 8.7 fL (7.6-11.3); Platelets 345 thou/uL (152-406); RBC Red Blood Cell Count 5.68 M/uL (4.33-5.43)
[2023-11-10 08:39] LABS: Protime INR 1.18
[2023-11-10 08:49] LABS: ALT/SGPT 38 U/L (16-61); AST/SGOT 20 U/L (15-37); Albumin 3.9 g/dL (3.4-5.0); Alkaline Phosphatase 139 U/L (45-117); BUN Blood Urea Nitrogen 11 mg/dL (7-18); Bicarbonate 28 mEq/L (21-32); Bilirubin Direct 0.3 mg/dL (0-0.2); Bilirubin Indirect, Calculated 0.7 mg/dL (0.2-0.8); Glomerular Filtration Rate 108 ml/min (=/>90); Glucose Level 336 mg/dL (74-106); Protein, Total 7.9 g/dL (6.4-8.2); Sodium Level 136 mEq/L (136-145)
[2023-11-10 09:01] LABS: Anion Gap 9.7 mEq/L (5.0-15.0); Potassium 2.7 mEq/L (3.5-5.1)
[2023-11-10 09:24] LABS: Platelet Estimate ADEQ; White Blood Cell Scan OK (OK)
[2023-11-10 09:25] LABS: Blood Morphology Comment NOT SEEN (NOT SEEN)
[2023-11-10 09:28] LABS: Barbiturates NEGATIVE (NEGATIVE); Benzodiazepines NEGATIVE (NEGATIVE); Cocaine POSITIVE (NEGATIVE); METHAMPHETAM POSITIVE (NEGATIVE); Methadone NEGATIVE (NEGATIVE); Opiates NEGATIVE (NEGATIVE); Phencyclidine NEGATIVE (NEGATIVE); THC Cannibis NEGATIVE (NEGATIVE)
--- NOTE | 2023-11-10 10:40 | ER ---
Nurse's Notes [facility] Name: Jimenez Patrcik Age: 28 yrs Sex: Male : 1995 Arrival Date: 11/10/2023 Time: 07:45 Bed 6 Private MD: Diagnosis: Methylphenidate ingestion Presentation: 11/09 08:00 Chief complaint: Patient states: he took 10-12 36mg tablets of Concerta this morning at kc6 0300. pt states, "it was just a spur of the moment thing." pt states it was not his medication and denies SI or HI at this time. pts only complaint is nausea. Coronavirus screen: At this time, the client does not indicate any symptoms associated with coronavirus-19. Ebola Screen: No symptoms or risks identified at this time. Initial Sepsis Screen: Does the patient meet any 2 criteria? No. Patient's initial sepsis screen is negative. Does the patient have a suspected source of infection? No. Patient's initial sepsis screen is negative. Risk Assessment: Do you want to hurt yourself or someone else? Patient reports no desire to harm self or others. Onset of symptoms was November 10, 2023. 08:00 Method Of Arrival: Ambulatory 6 08:00 Acuity: MOSES 2 kc6 Triage Assessment: 08:02 General: Appears in no apparent distress. comfortable, well groomed, well developed, kc6 Behavior is calm, cooperative, appropriate for age. Pain: Denies pain. EENT: No signs and/or symptoms were reported regarding the EENT system. Neuro: Level of Consciousness is awake, alert, obeys commands, Oriented to person, place, time, situation, Appropriate for age. Cardiovascular: Denies chest pain, Heart tones S1 S2 present Capillary refill is > 3 seconds Rhythm is sinus tachycardia. Respiratory: Airway is patent Trachea midline Respiratory effort is even, unlabored, Respiratory pattern is regular, symmetrical. GI: Reports nausea, Patient currently denies abdominal pain, diarrhea, vomiting. : No signs and/or symptoms were reported regarding the genitourinary system. Derm: No signs and/or symptoms reported regarding the dermatologic system. Skin is intact, is healthy with good turgor, Skin is pink, warm \\T\\ dry. Musculoskeletal: No signs and/or symptoms reported regarding the musculoskeletal system. Circulation, motion, and sensation intact. Capillary refill < 3 seconds, Range of motion: intact in all extremities. Historical: - Allergies: 08:02 NKA; kc6 - PMHx: 08:02 Chronic Pancreatitis; Diabetes - IDDM; Hypertensive disorder; kc6 - PSHx: 08:02 Cholecystectomy; I\\T\\D; stents x 2 in pancreas; kc6 - Immunization history:: Adult Immunizations not up to date. - Social history:: Smoking status: Patient denies any tobacco usage or history of. Screenin:04 [facility] ED Fall Risk Assessment (Adult) History of falling in the last 3 months, kc6 including since admission No falls in past 3 months (0 pts) Confusion or Disorientation No (0 pts) Intoxicated or Sedated No (0 pts) Impaired Gait No (0 pts) Mobility Assist Device Used No (0 pt) Altered Elimination No (0 pt) Score/Fall Risk Level 0 - 2 = Low Risk. Abuse screen: Denies threats or abuse. Denies injuries from another. Nutritional screening: No deficits noted. Tuberculosis screening: No symptoms or risk factors identified. Assessment: 08:04 Reassessment: please see triage assesment. kc6 08:05 Reassessment: girlfriend remains at bedside. kc6 08:53 Reassessment: Patient appears in no apparent distress at this time. No changes from 6 previously documented assessment. Patient and/or family updated on plan of care and expected duration. Pain level reassessed. Patient is alert, oriented x 3, equal unlabored respirations, skin warm/dry/pink. girlfriend remains at bedside. 09:53 Reassessment: Patient appears in no apparent distress at this time. No changes from kc6 previously documented assessment. Patient and/or family updated on plan of care and expected duration. Pain level reassessed. Patient is alert, oriented x 3, equal unlabored respirations, skin warm/dry/pink. girlfriend remains at bedside. 10:55 Reassessment: Patient appears in no apparent distress at this time. No changes from kc6 previously documented assessment. Patient and/or family updated on plan of care and expected duration. Pain level reassessed. Patient is alert, oriented x 3, equal unlabored respirations, skin warm/dry/pink. girlfriend remains at bedside. Vital Signs: 08:00 BP 148 / 109; Pulse 121; Resp 16 S; Temp 97.4(O); Pulse Ox 100% ; Weight 87.09 kg (R); kc6 Height 5 ft. 9 in. (R); 08:53 BP 128 / 107; Pulse 119; Resp 16 S; Pulse Ox 99% on R/A; kc6 09:42 BP 151 / 107; Pulse 117; ec2 10:34 BP 141 / 93; Pulse 106; ec2 10:56 BP 140 / 99; Pulse 106; Resp 16 S; Pulse Ox 100% on R/A; Pain 0/10; kc6 08:00 Body Mass Index 28.35 (87.09 kg, 175.26 cm) kc6 10:56 Pain Scale: Adult kc6 ED Course: 07:48 Patient arrived in ED. mg5 07:49 Nas Tovar MD is Attending Physician. ec2 08:00 Mariola Farooq RN is Primary Nurse. kc6 08:02 Triage completed. kc6 08:02 Arm band placed on. kc6 08:04 Patient maintains SpO2 saturation greater than 95% on room air. kc6 08:05 Patient has correct armband on for positive identification. Placed in gown. Bed in low kc6 position. Call light in reach. Side rails up X 1. Adult w/ patient. Client placed on continuous cardiac and pulse oximetry monitoring. NIBP monitoring applied. quilt maker on. 08:15 Inserted saline lock: 20 gauge in right antecubital area, using aseptic technique. kc6 Blood collected. 10:57 No provider procedures requiring assistance completed. IV discontinued, intact, kc6 bleeding controlled, No redness/swelling at site. Pressure dressing applied. Administered Medications: 08:21 Drug: NS 0.9% IV 1000 ml IV at 1 bolus Per protocol; 1000 mL bolus Route: IV; Rate: 1 kc6 bolus; Site: right antecubital; 10:56 Follow up: Response: No adverse reaction; IV Status: Completed infusion; IV Intake: kc6 1000ml 08:22 Drug: Ativan IVP 2 mg IVP once Route: IVP; Site: right antecubital; kc6 10:56 Follow up: Response: No adverse reaction; RASS: Alert and Calm (0) kc6 09:52 Drug: Diazepam IVP 10 mg IVP once Route: IVP; Site: right antecubital; nj1 10:57 Follow up: Response: No adverse reaction; RASS: Alert and Calm (0) kc6 09:53 Drug: NS 0.9% IV 1000 ml IV at 1 bolus Per protocol; 1000 mL bolus Route: IV; Rate: 1 nj1 bolus; Site: right antecubital; 10:56 Follow up: Response: No adverse reaction; IV Status: Completed infusion; IV Intake: kc6 1000ml Medication: 10:57 VIS not applicable for this client. kc6 Intake: 10:56 IV: 1000ml; Total: 1000ml. kc6 10:56 IV: 1000ml; Total: 2000ml. kc6 Outcome: 10:39 Discharge ordered by MD. ec2 10:57 Discharged to home ambulatory, with significant other, kc6 10:57 Condition: improved 10:57 Discharge instructions given to patient, significant other, Instructed on discharge instructions, follow up and referral plans. Demonstrated understanding of instructions, follow-up care, 10:57 Patient left the ED. kc6 Signatures: Mariola Farooq RN RN [facility] Kiki Galloway RN RN nj1 Alba Torres 5 Nas Tovar MD MD ec2 Corrections: (The following items were deleted from the chart) 10:56 08:53 Reassessment: Patient appears in no apparent distress at this time. No changes kc6 from previously documented assessment. Patient and/or family updated on plan of care and expected duration. Pain level reassessed. Patient is alert, oriented x 3, equal unlabored respirations, skin warm/dry/pink. kc6
--- NOTE | 2023-11-10 10:40 | EDPHYS ---
Physician Documentation [facility] Name: Jimenez Patrick Age: 28 yrs Sex: Male : 1995 Arrival Date: 11/10/2023 Time: 07:45 Bed 6 Private MD: ED Physician Nas Tovar HPI: 11/09 08:07 This 28 yrs old Male presents to ER via Ambulatory with complaints of Took ec2 10-12 Pills. 08:07 Patient arrives today d/t concern for ingestion for methylphenidate. Patient reportedly ec2 took 10 to 12 tablets of 36 mg of methylphenidate. Patient reports that he was impulsive, states pacifically that he does not have suicidal ideations or thoughts of self-harm. Patient reports no chest pain or difficulty breathing, does report the palpitations. Patient reports otherwise history of diabetes and hypertension.. Historical: - Allergies: 08:02 NKA; kc6 - PMHx: 08:02 Chronic Pancreatitis; Diabetes - IDDM; Hypertensive disorder; kc6 - PSHx: 08:02 Cholecystectomy; I\T\D; stents x 2 in pancreas; kc6 - Immunization history:: Adult Immunizations not up to date. - Social history:: Smoking status: Patient denies any tobacco usage or history of. ROS: 08:07 Constitutional: as per hpi ec2 Exam: 08:07 Constitutional: GEN: NAD Head: atraumatic Eyes: EOMI Ears: External ears are ec2 normal. CV: Tachycardia. LUNGS: no respiratory distress ABD: non-distended SKIN: no evidence of rashes MSK: no evidence of trauma NEURO: moves all extremities equally. Psych: Denies suicidal ideation. Vital Signs: 08:00 BP 148 / 109; Pulse 121; Resp 16 S; Temp 97.4(O); Pulse Ox 100% ; Weight 87.09 kg (R); kc6 Height 5 ft. 9 in. (R); 08:53 BP 128 / 107; Pulse 119; Resp 16 S; Pulse Ox 99% on R/A; kc6 09:42 BP 151 / 107; Pulse 117; ec2 10:34 BP 141 / 93; Pulse 106; ec2 10:56 BP 140 / 99; Pulse 106; Resp 16 S; Pulse Ox 100% on R/A; Pain 0/10; kc6 08:00 Body Mass Index 28.35 (87.09 kg, 175.26 cm) 6 10:56 Pain Scale: Adult kc6 MDM: 07:56 Patient medically screened. ec2 08:07 Data reviewed: vital signs. ED course: Patient arrives today for evaluation of ec2 ingestion of multiple tablets of methylphenidate. Examination will be tachycardic individual is otherwise cooperative with no thoughts of SI. Will obtain lab work, EKG, treat the patient with benzodiazepine and reassess. Evaluating for cardiac disease, electrolyte disturbances, coingestants.. 08:24 ED course: EKG independently reviewed and interpreted by me, shows sinus tachycardia, ec2 rate 120, no acute ST segment elevations, nonconcerning intervals.. 08:39 ED course: CBC reassuring, coagulation profile is unremarkable. . ec2 09:39 ED course: Metabolic profile is pertinent for slight hypokalemia. CBC reassuring. ec2 Hepatic profile unremarkable. Salicylate and Tylenol levels negative. Cocaine and methamphetamine levels positive. Alcohol undetectable. . 10:34 ED course: Patient with improving hemodynamics after benzodiazepine administration. On ec2 reassessment patient is well-appearing in no acute distress, no SI or HI identified. Duration of action for methylphenidate approximately 6 to 12 hours, patient had approximately 10 hours postinjection. Patient without any hyperreflexia or confusion to indicate significant toxicity. Patient with improving hemodynamics. Will discharge home. Return precautions given.. 03 08:05 Order name: Acetaminophen; Complete Time: 09:39 ec2 11/09 08:05 Order name: Basic Metabolic Panel; Complete Time: 09:39 ec2 11/09 08:05 Order name: CBC with Diff; Complete Time: 09:39 ec2 11/09 08:05 Order name: ETOH Level; Complete Time: 09:39 ec2 11/09 08:05 Order name: Hepatic Function; Complete Time: 09:39 ec2 11/09 08:05 Order name: PT-INR; Complete Time: 08:39 ec2 11/09 08:05 Order name: Ptt, Activated; Complete Time: 08:39 ec2 11/09 08:05 Order name: Salicylate; Complete Time: 09:39 ec2 11/09 08:05 Order name: Urine Drug Screen; Complete Time: 09:39 ec2 11/09 08:10 Order name: Troponin HS; Complete Time: 09:39 ec2 11/09 09:25 Order name: CBC Smear Scan; Complete Time: 09:39 EDMS 11/09 09:32 Order name: Glucose, Ancillary Testing; Complete Time: 09:39 EDMS 11/09 08:05 Order name: EKG; Complete Time: 08:06 ec2 11/09 08:05 Order name: EKG - Nurse/Tech; Complete Time: 08:14 ec2 11/09 08:05 Order name: IV Saline Lock; Complete Time: 08:14 ec2 11/09 08:05 Order name: Labs collected and sent; Complete Time: 08:14 ec2 11/09 08:05 Order name: Suicide Screening ([place]); Complete Time: 08:14 ec2 Administered Medications: 08:21 Drug: NS 0.9% IV 1000 ml IV at 1 bolus Per protocol; 1000 mL bolus Route: IV; Rate: 1 kc6 bolus; Site: right antecubital; 10:56 Follow up: Response: No adverse reaction; IV Status: Completed infusion; IV Intake: kc6 1000ml 08:22 Drug: Ativan IVP 2 mg IVP once Route: IVP; Site: right antecubital; kc6 10:56 Follow up: Response: No adverse reaction; RASS: Alert and Calm (0) kc6 09:52 Drug: Diazepam IVP 10 mg IVP once Route: IVP; Site: right antecubital; nj1 10:57 Follow up: Response: No adverse reaction; RASS: Alert and Calm (0) kc6 09:53 Drug: NS 0.9% IV 1000 ml IV at 1 bolus Per protocol; 1000 mL bolus Route: IV; Rate: 1 nj1 bolus; Site: right antecubital; 10:56 Follow up: Response: No adverse reaction; IV Status: Completed infusion; IV Intake: kc6 1000ml Disposition Summary: 11/10/23 10:39 Discharge Ordered Notes: Location: Home ec2 Condition: Stable ec2 Diagnosis - Methylphenidate ingestion ec2 Followup: ec2 - With: Private Physician - When: - Reason: Re-evaluation by your physician Discharge Instructions: - Discharge Summary Sheet ec2 - Nontoxic Ingestion, Adult ec2 Forms: - Work release form eb - Medication Reconciliation Form ec2 - Thank You Letter ec2 - Antibiotic Education ec2 - Prescription Opioid Use ec2 - Patient Portal Instructions ec2 - Leadership Thank You Letter ec2 Signatures: Dispatcher [employer] Mariola Arriaga RN RN kc6 Kiki Galloway RN RN nj1 Nas Tovar MD MD ec2
[2023-11-10 11:24] VITALS: BP 140/99; TEMP 97.4; O2SAT 100
== END ==
LOC: ER 07:45
DX: R00.2 Palpitations (principal); T43.635A Adverse effect of methylphenidate, initial encounter; I10 Essential (primary) hypertension; E11.9 Type 2 diabetes mellitus without complications
CPT/HCPCS: 96361; 93005; 85025; 80048; 36415; 85610; 82947; 80076; 85730; 84484; 80307; 96375; 96374; 99285; 80143; 80179; 82077; J3360; J7030 ×2

== ENCOUNTER → 2023-11-11 | Emergency (ER) | payer OTHER ==
[~2023-11-11] MED LIST changes: +ACTIVATED CHARCOAL 50 GM/240 ML ONE; -DIAZEPAM 10 MG/2 ML INJ SYRINGE ONE; -LORazepam 2 MG/ML VIAL ONE; +POTASSIUM 25 MEQ EFFERV TAB ONE; +activated charcoaL 25 GM/120 ML TUBE ONE
--- OUTSIDE RECORDS SUMMARY | 2023-11-11 15:00 | XMS REPORT | Continuity of Care Document ---
Author Name Unknown Address [address] [facility] [place] [address] [facility] thconnect Address [address] [facility] [place] [address] Care Team Providers Care Education Department Chair Name Role Phone PCP, PATIENT DOES NOT HAVE A Primary Care Physic adry Unavailable BROOKLYNN AGUILAR Attending Clinician Unavailable NANCY WEST Attending Clinician Unavailabl MICHAEL Lopez Attending Clinician Unavailable LAB90 Attending Clinician Unavailable Nabil Almanzar RN Attending Clinician Unavail able LAZARO HUNTER Attending Clinician Unavailable Augustin Kincaid Attending Clinician [phone] Esa Ko DO Attending Clinician [phone] Lazaro Huntre MD Attending Clinician [phone] Syeda Alberts Attending Clinician [phone] SYEDA PERSAUD Attending Clinician Unavailable Doctor Unassigned, [place] Attending Clinician U navailable LAZARO HUNTER Admitting Clinician Unavailable Lazaro Hunter MD Admitting Clinician [phone] Payers Payer Name Policy Type Policy Number Effective Date Expirati on Date Source MICHELET SAENZ [employer] O [employer] 94 ON 9 [id number] 2023 00:00:00 Problems Condition Name Condition Details Condition Category Status Onset Date Resolution Date Last Treatment Date Treating Clinician Comments Source HAZEL (diabetes mellitus) (multi HCC) DM (diabetes mellitus) [...] pancreatit is Disease Active 09-12 00:00: 00 [facility] Epigastric pain Epigastric pain Disease Active 09-11 00:00: 00 [facility] Obesity (BMI 30-39.9) Obesity (BMI 30-39.9) Disease Active 04-16 00:00: 00 [facility] Mesenteric adenitis Mesenteric adenitis Disease Active 2009-09 00:00: 00 [facility] Pancreatit is Pancreatit is Disease Active 2009-09 00:00: 00 [facility] Abdominal pain Abdominal pain Disease Active 2009-09 00:00: 00 [facility] Other acne Other acne Disease Active 04-13 00:00: 00 [facility] Viral warts Viral warts Disease Active 04-13 00:00: 00 Overview: Formattin g of this note might be different from the original. 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 [facility] Allergies, Adverse Reactions, Alerts Allergy Name Allergy Type Status Severity Reaction(s) Onset Date Inactive Date Treating Clinician Comments Source NO KNOWN ALLERGIE S Drug Class Active [facility] Social History Social Habit Start Date Stop Date Quantity Comments Source History SDOH Social Connections Get Together [facility] History SDOH Social Connections Restoration [facility] History SDOH Social Connections Membership [facility] History SDOH Social Connections Meetings [facility] Sexual orientation Nicolasa Knowles - External History [...] Activity MPS 2022-09-13 00:00:00 2022-09-13 00:00:00 3 [facility] History SDOH Financial 2022-09-13 00:00:00 2022-09-13 00:00:00 5 [facility] History SDOH Food Worry 2022-09-13 00:00:00 2022-09-13 00:00:00 1 [facility] History SDOH Food Scarcity 2022-09-13 00:00:00 2022-09-13 00:00:00 1 [facility] History SDOH Transport Med 2022-09-13 00:00:00 2022-09-13 00:00:00 2 [facility] History SDOH Transport Non-Med 2022-09-13 00:00:00 2022-09-13 00:00:00 2 [facility] History SDOH Alcohol Frequency 2022-09-13 00:00:00 2022-09-13 00:00:00 1 [facility] History SDOH Alcohol Std Drinks 2022-09-13 00:00:00 2022-09-13 00:00:00 0 [facility] History SDOH Alcohol Binge 2022-09-13 00:00:00 2022-09-13 00:00:00 1 [facility] History SDOH Social Connections Phone 2022-09-13 00:00:00 2022-09-13 00:00:00 5 [facility] History SDOH Social Connections Living 2022-09-13 00:00:00 2022-09-13 00:00:00 5 [facility] History SDOH Physical Activity DPW 2022-09-13 00:00:00 2022-09-13 00:00:00 4 [facility] Exposure to SARS-CoV-2 (event) 2022-09-01 00:00:00 2022-09-11 13:58:00 Not sure [facility] Sex Assigned At 1995 00:00:00 1995 00:00:00 Parvin Knowles - External Smoking Status Start Date Stop Date Source Occasional tobacco smoker 2023-10-06 00:00:00 Parvin Knowles - External Ex-smoker 2022-09-12 00:00:00 2022-09-12 00:00:00 [facility] Unknown if ever smoked [facility] acute hospital Medications Ordered Medication Name Filled Medication Name Start Date Stop Date Current Medication? Ordering Clinician Indication Dosage Frequency Signature (SIG) Comments Components Source Insulin NPH Isophane & Regular (NOVOLIN 70/30 SC) 10-06 10:25: 45 10-06 00:00 :00 No 60U Inject 60 units into the skin daily. Parvin Knowles - Externa l Metoprolol Tartrate (LOPRESSOR) 25 MG oral Tablet 10-06 00:00: 00 Yes [id number] 25mg Take 1 tablet (25 mg total) by mouth daily. Parvin siegel Insulin Glargine (Basaglar KwikPen) 100 UNIT/ML subcutaneou s Solution Pen-injecto r 10-06 00:00: 00 Yes [id number] 9101 40 units sc daily. Parvin siegel Continuous Blood Gluc Financial Operations Consultant (Dexcom G6 Financial Operations Consultant) does not apply Device 10-06 00:00: 00 Yes [id number] Check BS continuous ly. Parvin Gonsales l Continuous Blood Gluc Sensor (Dexcom G6 Sensor) does not apply Misc 10-06 00:00: 00 Yes [id number] Check BS continuous ly. Parvin siegel Continuous Blood Gluc Transmit (Dexcom G6 Transmitter ) does not apply Misc 10-06 00:00: 00 Yes [id number] Check BS continousl y. Parvin siegel Gabapentin 100 MG oral Capsule 10-06 00:00: 00 Yes [id number] 100mg Q.[id number] 3D Take 1 capsule (100 mg total) [...] (two) times daily before breakfast and dinner. [facility] insulin NPH and regular human 70-30 (NOVOLIN 70/30 U-100 INSULIN) 100 unit/mL (70-30) injection 09-14 00:00: 00 Yes [id number] 60U inject 60 Units under the skin 2 (two) times daily before breakfast and dinner. [facility] insulin NPH and regular human 70-30 (NOVOLIN 70/30 U-100 INSULIN) 100 unit/mL (70-30) injection 09-14 00:00: 00 Yes [id number] 60U inject 60 Units under the skin 2 (two) times daily before breakfast and dinner. [facility] atorvastati n 40 mg tablet 09-14 00:00: 00 10-15 05:59 :00 No [id number] 40mg Take 1 tablet by mouth at bedtime for 30 days. [facility] lisinopriL 10 mg tablet 09-14 00:00: 00 10-15 05:59 :00 No [id number] 10mg Take 1 tablet by mouth in the morning and 1 tablet in the evening. Do all this for 30 days. [facility] atorvastati n 40 mg tablet 09-14 00:00: 00 10-15 05:59 :00 No [id number] 40mg Take 1 tablet by mouth at bedtime for 30 days. [facility] lisinopriL 10 mg tablet 09-14 00:00: 00 10-15 05:59 :00 No [id number] 10mg Take 1 tablet by mouth in the morning and 1 tablet in the evening. Do all this for 30 days. [facility] morpHINE (4 mg/mL) injection 4 mg 09-13 09:53: 10 Yes 4mg 4 mg, Slow IV Push, Q4HPRN, Starting on Tue09/13/22 at 0353, Until Discontinu ed, Routine, Pain (scale 7-10) [facility] atorvastati n (LIPITOR) tablet 40 mg 09-13 03:00: 00 Yes 40mg 40 mg, Oral, QHS, First dose on 09/12/22 at 2100, Until Discontinu ed, Routine [facility] lisinopriL (PRINIVIL,Z ESTRIL) tablet 10 mg 09-12 14:45: 00 Yes 10mg 10 mg, Oral, BID, First dose (after last modificati on) on 09/12/22 at 0845, Until Discontinu ed, Routine [facility] KCL (KLOR-CON M20) tablet 40 mEq 09-12 13:45: 00 09-12 14:15 :00 No 40meq 40 mEq, Oral, ONCE, 1 dose, On 09/12/22 at 0745, Routine [facility] potassium chloride in water 10 mEq/100 mL RTU 10 mEq 09-12 13:00: 00 09-12 16:20 :00 No 10meq 10 mEq, IV Piggyback, Q1H, 2 doses, First dose on 09/12/22 at 0700, Last dose on Tue09/12/22 at 0800, Administer over 60 Minutes, 100 mL [facility] lisinopriL (PRINIVIL,Z ESTRIL) tablet 5 mg 09-12 05:00: 00 09-12 14:35 :46 No 5mg 5 mg, Oral, BID, First dose on [facility] 09/11/22 at 2300, Until Discontinu ed, [facility] lactated [facility]ers [facility] 1,000 mL 09-12 03:15: 00 Yes 1000mL at 150 mL/hr, 1,000 mL, IV Infusion, CONTINUOUS , Starting on 09/11/22 at 2115, Until Discontinu ed, Routine [facility] Sliding Scale Insulin - Lispro (HumaLOG) + Fsbg Testing 09-11 23:00: 00 Yes Subcutaneo us, TID MEALS+HS, First dose on 09/11/22 at 1700, Until Discontinu ed, Routine [facility] enoxaparin (LOVENOX) injection 40 mg 09-11 23:00: 00 Yes 40mg 40 mg, Subcutaneo us, DAILY, First dose on 09/11/22 at 1700, Until Discontinu ed, Routine [facility] lactated ringers IV infusion 1,000 mL 09-11 19:15: 00 09-12 03:05 :27 No 1000mL at 125 mL/hr, 1,000 mL, IV Infusion, CONTINUOUS , Starting on 09/11/22 at 1315, Until 09/11/22 at 2105, Routine [facility] lactated ringers IV infusion 1,000 mL 09-11 19:00: 00 09-11 19:56 :58 No 1000mL at 999 mL/hr, 1,000 mL, Intravenou s, ONCE, 1 dose, On 09/11/22 at 1300, Routine [facility] NaCl 0.9% (NS) IV infusion 1,000 mL 09-11 18:15: 00 09-11 19:00 :00 No 1000mL at 999 mL/hr, Intravenou s, ONCE, 1 dose, On 09/11/22 at 1215, MARITA [facility] FENTanyl PF (SUBLIMAZE (PF)) injection 50 mcg 09-11 18:05: 00 09-11 18:10 :00 No 50ug 50 mcg, Slow IV Push, ONCE, 1 dose, On 09/11/22 at 1215, MARITA [facility] ondansetron (ZOFRAN (PF)) injection 4 mg 09-11 18:05: 00 09-11 18:09 :00 No 4mg 4 mg, Slow IV Push, ONCE, 1 dose, On 09/11/22 at 1215, MARITA [facility] glucagon (GLUCAGEN DIAGNOSTIC KIT) injection 1 mg 09-11 18:04: 12 Yes 1mg 1 mg, Intramuscu lar, PRN, Starting on 09/11/22 at 1204, Until Discontinu ed, MARITA, Blood Glucose < or = 70 mg/dL and patient is unable to swallow or has mental changes. [facility] dextrose 50 % in water (D50W) injection 25 mL 09-11 18:04: 12 Yes 25mL 25 mL, Slow IV Push, PRN, Starting on 09/11/22 at 1204, Until Discontinu ed, MARITA, Blood Glucose < or = 70 mg/dL and patient is unable to swallow or has mental status changes. [facility] ondansetron (ZOFRAN (PF)) injection 4 mg 09-11 18:04: 03 Yes 4mg 4 mg, Slow IV Push, Q6HPRN, Starting on 09/11/22 at 1204, Until Discontinu ed, Routine, Nausea and Vomiting (N/V) [facility] morpHINE (2 mg/mL) injection 2 mg 09-11 18:03: 52 09-12 18:02 :52 No 2mg 2 mg, Slow IV Push, Q4HPRN, Starting on 09/11/22 at 1203, Until 09/12/22 at 1202, Routine, Pain (scale 7-10) [facility] HYDROcodone -acetaminop hen (NORCO 5) 5-325 mg tablet 1 tablet 09-11 18:03: 48 09-13 18:02 :48 No 1{tbl} 1 tablet, Oral, Q6HPRN, Starting on 09/11/22 at 1203, Until 09/13/22 at 1202, Routine, Pain (scale 4-6) [facility] acetaminoph en (TYLENOL) tablet 650 mg 09-11 18:03: 39 Yes 650mg 650 mg, Oral, Q6HPRN, Starting on 09/11/22 at 1203, Until Discontinu ed, Routine, Pain (scale 1-3) [facility] insulin NPH and regular human 70-30 (70-30 U-100 INSULIN) 100 unit/mL (70-30) injection 60 Units 09-11 18:03: 00 09-11 18:54 :00 No 60U 60 Units, Subcutaneo us, ONCE, 1 dose, On 09/11/22 at 1215, MARITA [facility] FENTanyl PF (SUBLIMAZE (PF)) injection 50 mcg 09-11 16:38: 00 09-11 16:41 :00 No 50ug 50 mcg, Slow IV Push, ONCE, 1 dose, On 09/11/22 at 1045, MARITA [facility] iopamidol (ISOVUE 370-500 mL) injection 78 mL 09-11 16:35: 00 09-11 16:45 :00 No [id number] 78mL 78 mL, Intravenou s, ONCE, 1 dose, On 09/11/22 at 1045, Routine [facility] ondansetron (ZOFRAN (PF)) injection 4 mg 09-11 15:45: 00 09-11 15:50 :00 No [id number] 4mg 4 mg, Slow IV Push, ONCE, 1 dose, On 09/11/22 at 0945, [facility] famotidine (PEPCID (PF)) injection 20 mg 09-11 15:45: 00 09-11 15:50 :00 No [id number] 20mg 20 mg, Slow IV Push, ONCE, 1 dose, On 09/11/22 at 0945, [facility] NaCl 0.9% (NS) IV infusion 1,000 mL 09-11 15:33: 00 09-11 17:00 :00 No [id number] 1000mL at 999 mL/hr, Intravenou s, ONCE, 1 dose, On 09/11/22 at 0945, [facility] sodium chloride (NS) injection 5 mL 09-11 15:32: 59 Yes [id number] 5mL 5 mL, Intravenou s, PRN, Starting on 09/11/22 at 0932, Until Discontinu ed, Routine, IV line flushing [facility] maalox:diph enhydrAMINE :lidocaine 2 % viscous 1:1:1 (FIRST-MOUT HWASH BLM) oral suspension 15 mL 11-08 20:45: 00 11-08 20:39 :00 No 15mL 15 mL, Oral, ONCE, 1 dose, 11/08/20 at 1445, [facility] insulin regular human (HUMULIN R) injection 9 Units 11-08 20:30: 00 11-08 19:39 :00 No 9U 9 Units, Slow IV Push, ONCE, 1 dose, 11/08/20 at 1430, STAT [facility] ondansetron (ZOFRAN (PF)) injection 4 mg 11-08 19:45: 00 11-08 18:49 :00 No 4mg 4 mg, Slow IV Push, ONCE, 1 dose, 11/08/20 at 1345, [facility] morpHINE injection 4 mg 11-08 19:45: 00 11-08 18:49 :00 No 4mg 4 mg, Slow IV Push, ONCE, 1 dose, 11/08/20 at 1345, STAT [facility] NaCl 0.9% (NS) bolus infusion 1,000 mL 11-08 19:30: 00 11-08 20:37 :00 No 1000mL at 999 mL/hr, 1,000 mL, IV Infusion, ONCE, 1 dose, 11/08/20 at 1330, [facility] NaCl 0.9% (NS) bolus infusion 1,000 mL 11-08 18:30: 00 11-08 19:39 :00 No 1000mL at 999 mL/hr, 1,000 mL, IV Infusion, ONCE, 1 dose, 11/08/20 at 1230, [facility] ondansetron (ZOFRAN ODT) 4 mg disintegrat ing tablet 11-08 00:00: 00 Yes [id number] 4mg Take 1 tablet by mouth every 8 (eight) hours as needed for Nausea and Vomiting (N/V). [facility] dicyclomine 20 mg tablet 11-08 00:00: 00 Yes [id number] 20mg Take 1 tablet by mouth 4 (four) times daily as needed for Abdominal pain. [facility] ondansetron (ZOFRAN ODT) 4 mg disintegrat ing tablet 11-08 00:00: 00 09-11 00:00 :00 No [id number] 4mg Take 1 tablet by mouth every 8 (eight) hours as needed for Nausea and Vomiting (N/V). [facility] dicyclomine 20 mg tablet 306 00:00: 00 09-11 00:00 :00 No [id number] 20mg Take 1 tablet by mouth 4 (four) times daily as needed for Abdominal pain. [facility] No known medications No Un brendan [facility] Vital Signs Vital Name Observation Time Observation Value Comments S ource Systolic blood pressure 2023-10-06 16:21:00 135 mm[Hg] Parvin Greenybo ld - External Diastolic blood pressure 2023-10-06 16:21:00 90 mm[Hg] Parvin Brunsono ld - External Heart rate 2023-10-06 15:48:00 123 /min Jennifer davenport Seybrenita - External Body temperature 2023-10-06 15:48:00 36.61 Zenaida Parvin Brunsonold - External Respiratory rate 2023-10-06 15:48:00 20 /min Parvin Brunsonold - External Body height 2023-10-06 15:48:00 177.8 cm Emma gallardo Seybold - External Body weight 2023-10-06 15:48:00 95.255 kg Emma gallardo Seybold - External BMI 2023-10-06 15:48:00 30.13 kg/m2 Emma gallardo Seybold - External Oxygen saturation in Arterial blood by Pulse oximetry 2023-10-06 15:48:00 100 /min Parvin Franco ld - External Systolic blood pressure 2022-09-14 17:21:00 130 mm[Hg] [facility] Diastolic blood pressure 2022-09-14 17:21:00 93 mm[Hg] [facility] Heart rate 2022-09-14 17:21:00 87 /min [facility] Body temperature 2022-09-14 17:21:00 35.56 Zenaida [facility] Respiratory rate 2022-09-14 17:21:00 18 /min [facility] Oxygen saturation in Arterial blood by Pulse oximetry 2022-09-14 17:21:00 98 /min [facility] Body weight 2022-09-14 09:02:00 98.476 kg [facility] BMI 2022-09-14 09:02:00 32.06 kg/m2 [facility] Body height 2022-09-11 19:14:00 175.3 cm [facility] Systolic blood pressure 2020-11-08 21:00:00 136 mm[Hg] [facility] Diastolic blood pressure 2020-11-08 21:00:00 95 mm[Hg] [facility] Heart rate 2020-11-08 21:00:00 93 /min [facility] Respiratory rate 2020-11-08 21:00:00 16 /min [facility] Oxygen saturation in Arterial blood by Pulse oximetry 2020-11-08 21:00:00 98 /min [facility] Body temperature 2020-11-08 18:12:00 36.44 Zenaida [facility] Body height 2020-11-08 18:12:00 175.3 cm [facility] Body weight 2020-11-08 18:12:00 92.987 kg [facility] BMI 2020-11-08 18:12:00 30.27 kg/m2 [facility] Procedures Procedure Date / Time Performed Performing Clinician Source POCT GLUCOSE (AUTOMATED) 2022-09-14 17:22:00 Lazaro Hunter [facility] LIPASE 2022-09-14 11:57:00 Michael Jung [facility] BASIC METABOLIC PANEL (NA, K, CL, CO2, GLUCOSE, BUN, CREATININE, CA) 2022-09-14 11:57:00 Michael Jung [facility] LIPID PANEL (25532)(TOTAL CHOLESTEROL, TRIGLYCERIDES, HDL) 2022-09-14 11:57:00 Michael Jung [facility] CBC WITH DIFF 2022-09-14 11:57:00 Michael Jung [facility] POCT GLUCOSE (AUTOMATED) 2022-09-14 02:35:00 Lazaro Hunter [facility] POCT GLUCOSE (AUTOMATED) 2022-09-13 22:59:00 Lazaro Hunter [facility] POCT GLUCOSE (AUTOMATED) 2022-09-13 17:43:00 Elsa [facility] POCT GLUCOSE (AUTOMATED) 2022-09-13 13:30:00 Elsa [facility] BASIC METABOLIC PANEL (NA, K, CL, CO2, GLUCOSE, BUN, CREATININE, CA) 2022-09-13 09:26:00 Emy Hyde [facility] POCT GLUCOSE (AUTOMATED) 2022-09-12 22:34:00 Elsa [facility] POCT GLUCOSE (AUTOMATED) 2022-09-12 17:15:00 Elsa [facility] POCT GLUCOSE (AUTOMATED) 2022-09-12 13:44:00 Elsa [facility] MAGNESIUM 2022-09-12 09:07:00 Elsa [facility] HEPATIC FUNCTION PANEL ([id number]) (ALB,T.PRO,BILI T,BU/BC,ALT,AST,ALK PHOS) 2022-09-12 09:07:00 Elsa [facility] BASIC METABOLIC PANEL (NA, K, CL, CO2, GLUCOSE, BUN, CREATININE, CA) 2022-09-12 09:07:00 Emy Hyde [facility] LIPID PANEL ([id number])(TOTAL CHOLESTEROL, TRIGLYCERIDES, HDL) 2022-09-12 09:07:00 Elsa [facility] CBC WITH DIFF 2022-09-12 09:07:00 Emy Hyde [facility] POCT GLUCOSE (AUTOMATED) 2022-09-12 09:01:00 Esa Ko [facility] POCT GLUCOSE (AUTOMATED) 2022-09-12 02:38:00 Esa Ko [facility] POCT GLUCOSE (AUTOMATED) 2022-09-11 22:42:00 Esa Ko [facility] POCT GLUCOSE (AUTOMATED) 2022-09-11 18:57:00 Augustin Ignacio [facility] POCT GLUCOSE(AGE >30DAYS) 2022-09-11 17:22:00 Augustin Ignacio [facility] POCT GLUCOSE (AUTOMATED) 2022-09-11 17:21:00 Mateus [facility] CT ABDOMEN PELVIS W CONTRAST 2022-09-11 16:38:00 Mateus [facility] POCT GLUCOSE (AUTOMATED) 2022-09-11 15:59:00 [facility] 2022-09-11 15:48:00 [facility] COMP. METABOLIC PANEL (71251) 2022-09-11 15:48:00 Mtaeus [facility] CBC WITH DIFF 2022-09-11 15:48:00 Mateus [facility] GLYCOSYLATED HEMOGLOBIN (A1C) 2022-09-11 15:48:00 Esa oK [facility] URINALYSIS 2022-09-11 15:46:00 Mateus [facility] CONSENT/REFUSAL FOR DIAGNOSIS AND TREATMENT 2022-09-11 15:16:37 Doctor Unassigned, [place] [facility] POCT GLUCOSE (AUTOMATED) 2020-11-08 20:26:00 Ramses [facility] LIPASE 2020-11-08 18:29[facility] ([id number][facility] (ALB,T.PRO,BILI T,BU/BC,ALT,AST,ALK PHOS) 2020-11-08 18:29:00 [facility] (NA, K, CL, CO2, GLUCOSE, BUN, CREATININE, CA) 2020-11-08 18:29:00 Ramses [facility] CBC WITH DIFF 2020-11-08 18:29:00 Syeda Persaud [facility] URINALYSIS 2020-11-08 18:29:00 Ramses [facility] NOTICE OF PRIVACY PRACTICES 2020-11-08 18:06:16 Doctor Unassigned, [place] [facility] CONSENT/REFUSAL FOR DIAGNOSIS AND TREATMENT 2020-11-08 18:06:04 Doctor Unassigned, [place] [facility] Encounters Start Date/Time End Date/Time Encounter Type Admission Type Attending Clinicians Care Facility Care Department Encounter ID Source 2021-09-30 12:34:38 Outpatient [facility] [id number] [facility] 2024-02-21 15:30:00 2024-02-21 15:30:00 Outpatient BROOKLYNN AGUILAR [facility] [id number] [facility] 2024-01-23 14:15:00 2024-01-23 14:15:00 Outpatient ANNCY WEST PARVIN HERNÁNDEZ [id number] [facility] 2023-11-29 10:45:00 2023-11-29 10:45:00 Outpatient PREZAS MICHAEL HERNÁNDEZ [id number] [facility] 2023-11-07 00:00:00 2023-11-07 00:00:00 Outpatient PREZAS MICHAEL HERNÁNDEZ [id number] [facility] 2023-10-27 00:00:00 2023-10-27 00:00:00 Outpatient PREZAS MICHAEL HERNÁNDEZ [id number] [facility] 2023-10-26 00:00:00 2023-10-26 00:00:00 Outpatient PREZAS MICHAEL HERNÁNDEZ [id number] [facility] 2023-10-26 00:00:00 2023-10-26 00:00:00 Outpatient PREZAS MICHAEL HERNÁNDEZ [id number] [facility] 2023-10-19 16:45:00 2023-10-19 16:45:00 Outpatient PREZAS MICHAEL HERNÁNDEZ [id number] [facility] 2023-10-18 14:30:00 2023-10-18 14:30:00 Outpatient PARVIN HERNÁNDEZ [id number] [facility] 2023-10-10 00:00:00 2023-10-10 00:00:00 Outpatient PREZAS MICHAEL HERNÁNDEZ [id number] [facility] 2023-10-07 00:00:00 2023-10-07 00:00:00 Outpatient PREZAS MICHAEL HERNÁNDEZ [id number] Parvin Benson 2023-10-06 10:45:00 2023-10-06 10:45:00 Outpatient LAB90 PARVIN HERNÁNDEZ [id number] Parvin Knowles 2023-10-06 09:30:00 2023-10-06 09:30:00 Outpatient MICHAEL BRAVO [id number] Parvin Knowles 2023-08-24 10:15:00 2023-08-24 10:15:00 Outpatient MICHAEL BRAVO [id number] Parvin Greenrenita 2022-09-15 00:00:00 2022-09-15 00:00:00 Transition of Care Nabil Almanzar [id number] [facility] 2022-09-11 09:26:00 2022-09-14 13:00:00 Inpatient X LAZARO HUNTER [facility] [id number] [facility] 2022-09-11 09:26:00 2022-09-14 13:00:00 Hospital Encounter Augustin Ignacio [place], Jelani [facility] [id number] [facility] 2020-11-08 12:16:00 2020-11-08 15:38:00 Emergency Ramses Syeda [facility] [id number] [facility] 2020-11-08 12:06:00 2020-11-08 12:06:00 Emergency X PERSAUD SYEDA [facility] ERT [id number] [facility] 2020-11-08 00:00:00 2020-11-08 00:00:00 Orders Only Doctor Unassigned, [place] [facility] [id number] [facility] Results Test Description Test Time Test Comments Results Result Co mments Source [facility] GLUCOSE (AUTOMATED)2022-09-14 02:40:24* Test Item Value Reference Range Interpretation Comme nts POCT GLU (test code = 4582763349) 191 mg/dL 70-110 H Lab Interpretation (test cod e = 63136-0) Abnormal [facility] GLUCOSE (AUTOMATED)2022-09-13 23:13:20* Test Item Value Reference Range Interpretation Comme nts POCT GLU (test code = 4043886135) 126 mg/dL 70-110 H Lab Interpretation (test cod e = 70718-9) Abnormal [facility] GLUCOSE (AUTOMATED)2022-09-13 17:51:10* Test Item Value Reference Range Interpretation Comme nts POCT GLU (test code = [id number]) 270 mg/dL 70-110 H Lab Interpretation (test cod e = 57866-9) Abnormal [facility] GLUCOSE (AUTOMATED)2022-09-13 14:08:01* Test Item Value Reference Range Interpretation Comme nts POCT GLU (test code = 1745394414) 177 mg/dL 70-110 H Lab Interpretation (test cod e = 30579-7) Abnormal [facility] GLUCOSE (AUTOMATED)2022-09-12 22:53:55* Test Item Value Reference Range Interpretation Comme nts POCT GLU (test code = 3407639197) 207 mg/dL 70-110 H Lab Interpretation (test cod e = 13311-8) Abnormal [facility] GLUCOSE (AUTOMATED)2022-09-12 18:09:02* Test Item Value Reference Range Interpretation Comme nts POCT GLU (test code = 6212499649) 92 mg/dL 70-110 Lab Interpretation (test cod e = 83438-3) [facility]TOTAL CHOLESTEROL, TRIGLYCERIDES, HDL)2022-09-12 14:58:08* Test Item Value Reference Range Interpretation Comme nts CHOL (test code = 2184035545) 138 mg/dL 120-200 HDL (test code = 2410053130) 23 mg/dL See_Comment L [Automated messa ge] The system which generated this result transmitted reference range: >=40. The reference range was not used to interpret this result as normal/abnormal. HDLC RATIO (test code = 2397877650) See_Comment H [Automated messa ge] The system which generated this result transmitted reference range: <=5.0. The reference range was not used to interpret this result as normal/abnormal. TRIG (test code = 5974607556) 171 mg/dL 30-170 H LDL CHOL (test code = 77353-0) 81 mg/dL See_Comment [Automated messa ge] The system which generated this result transmitted reference range: <=160. The reference range was not used to interpret this result as normal/abnormal. VLDL (test code = 7304403107) 34 mg/dL 5-60 Lab Interpretation (test code = 08561-7) [facility] 13:54:38* Test Item Value Reference Range Interpretation Comme [facility] POCT GLU (test code = 4149537639) 84 mg/dL 70-110 Lab Interpretation (test cod e = 80049-1) [facility]40766[facility] (ALB,T.PRO,BILI T,BU/BC,ALT,AST,ALK PHOS)2022-09-12 13:03:03* Test Item Value Reference Range Interpretation Comme [facility] TOTAL BILI (test code = 7086127783) 1.0 mg/dL 0.1-1.1 BILI UNCON (test code = 3973514734) 0.8 mg/dL 0.1-1.1 BILI CONJ (test code = 1791222322) 0.0 mg/dL 0.0-0.3 T PROTEIN (test code = 0498378478) 6.7 g/dL 6.3-8.2 ALBUMIN (test code = 6492792078) 4.0 g/dL 3.5-5.0 ALK PHOS (test code = 7125257423) 106 U/L 34-122 ALTv (test code = 1742-6) 146 U/L 5-50 H AST(SGOT) (test code = 5892936834) 81 U/L 13-40 H Lab Interpretation (test cod e = 09394-0) [facility] 13:02:43* Test Item Value Reference Range Interpretation Comme nts MAGNESIUM (test code = 6495586035) 1.8 mg/dL 1.7-2.4 Lab Interpretation (test cod e = 44460-9) [facility] (NA, K, CL, CO2, GLUCOSE, BUN, CREATININE, CA)2022-09-12 12:10:26* Test Item Value Reference Range Interpretation Comme nts NA (test code = 9411729110) 142 mmol/L 135-145 K (test code = 5325467731) 3.1 mmol/L 3.5-5.0 L CL (test code = 9209255942) 106 mmol/L 98-108 CO2 TOTAL (test code = 3194063205) 24 mmol/L 23-31 AGAP (test code = 8439146765) 2-16 BUN (test code = 5614798067) 8 mg/dL 7-23 GLUCOSE (test code = 2230824253) 73 mg/dL 70-110 CREATININE (test code = 8921825103) 0.72 mg/dL 0.60-1.25 CALCIUM (test code = 5031620750) 8.1 mg/dL 8.6-10.6 L eGFR (test code = 7585149403) mL/min/1.73m2 RAFAEL (test code = RAFAEL) Association [...] imaging tests). Lab Interpretation (test code = 73884-8) Abnormal [facility] WITH [id number] 11:46:12* Test Item Value Reference Range Interpretation Comme nts WBC (test code = 6690-2) See_Comment [Automated [employer]] The system which generated this result transmitted reference range: 4.20 - 10.70 10*3/?L. The reference range was not used to interpret this result as normal/abnormal. RBC (test code = 789-8) See_Comment [Automated [employer]] The system which generated this result transmitted [...] 35.0 g/dL 31.2-35.0 RDW-SD (test code = 52705-3) 36.0 fL 38.5-51.6 L RDW-CV (test code = 788-0) 11.9 % 12.1-15.4 L PLT (test code = 777-3) See_Comment [Automated [employer]] The system which generated this result transmitted reference range: 150 - 328 10*3/?L. The reference range was not used to interpret this result as normal/abnormal. MPV (test code = 04388-7) 10.7 fL 9.8-13.0 NRBC/100 WBC (test code = 6464061561) See_Comment [Automated me ssage] The system which generated this result transmitted reference range: 0.0 - 10.0 /100 WBCs. The reference range was not used to interpret this result as normal/abnormal. NRBC x10^3 (test code = 2574418711) See_Comment [Automated messa ge] The system which generated this result transmitted reference range: 10*3/?L. The reference range was not used to interpret this result as normal/abnormal. GRAN MAT (NEUT) % (test code = 770-8) 50.2 % IMM GRAN % (test code = 7912489681) 0.40 % LYMPH % (test code = 736-9) 37.0 % MONO % (test code = 5905-5) 8.3 % EOS % (test code = 713-8) 3.6 % BASO % (test code = 706-2) 0.5 % GRAN MAT x10^3(ANC) (test code = 9353147835) 4.81 10*3/uL 1.99-6.95 IMM GRAN x10^3 (test code = 3978661977) 0.04 10*3/uL 0.00-0.06 LYMPH x10^3 (test code = 731-0) 3.56 10*3/uL 1.09-3.23 H MONO x10^3 (test code = 742-7) 0.80 10*3/uL 0.36-1.02 EOS x10^3 (test code = 711-2) 0.35 10*3/uL 0.06-0.53 BASO x10^3 (test code = 704-7) 0.05 10*3/uL 0.01-0.09 Lab Interpretation (test code = 33521-5) Abnormal [facility] GLUCOSE (AUTOMATED)2022-09-12 11:19:34* Test Item Value Reference Range Interpretation Comme nts POCT GLU (test code = 4567878869) 70 mg/dL 70-110 Lab Interpretation (test cod e = 36560-9) Normal [facility] GLUCOSE (AUTOMATED)2022-09-12 02:46:59* Test Item Value Reference Range Interpretation Comme nts POCT GLU (test code = 2198247399) 90 mg/dL 70-110 Lab Interpretation (test cod e = 02188-1) Normal [facility] GLUCOSE (AUTOMATED)2022-09-11 23:13:35* Test Item Value Reference Range Interpretation Comme nts POCT GLU (test code = 0893982244) 120 mg/dL 70-110 H Lab Interpretation (test cod e = 31336-5) [facility] Hem[facility] (A1C)2022-09-11 20:41:39* Test Item Value Reference Range Interpretation Comme nts HGB A1C (test code = 4548-4) 10.1 % 4.0-5.7 H RAFAEL (test code = RAFAEL) Reference RangesNormal: <5.7%Prediabetes: 5.7 - 6.4%Diabetes: > 6.5% Lab Interpretation (test code = 49917-5) Abnormal [facility] GLUCOSE (AUTOMATED)2022-09-11 19:01:23* Test Item Value Reference Range Interpretation Comme nts POCT GLU (test code = 8524479142) 302 mg/dL 70-110 H Lab Interpretation (test cod e = 89886-6) Abnormal [facility] GLUCOSE (AUTOMATED)2022-09-11 19:01:23* Test Item Value Reference Range Interpretation Comme nts POCT GLU (test code = 7004740800) 277 mg/dL 70-110 H Lab Interpretation (test cod e = 43459-4) Abnormal [facility] GLUCOSE (AUTOMATED)2022-09-11 19:01:23* Test Item Value Reference Range Interpretation Comme nts POCT GLU (test code = 7738240516) 283 mg/dL 70-110 H Lab Interpretation (test cod e = 37130-8) Abnormal [facility] GLUCOSE(AGE >30DAYS)2022-09-11 17:22:00* Test Item Value Reference Range Interpretation Comme nts POCT Glu (age>30days) (test code = 3342) 277 mg/dL 70-110 A Lab Interpretation (test cod e = 92182-1) [facility] Metabolic [id number] 16:11:48* Test Item Value Reference Range Interpretation Comme nts NA (test code = 1762328826) 137 mmol/L 135-145 K (test code = 8260079367) 4.5 mmol/L 3.5-5.0 CL (test code = 7206463185) 102 mmol/L 98-108 CO2 TOTAL (test code = 5222153317) 22 mmol/L 23-31 L AGAP (test code = 8852797799) 2-16 BUN (test code = 1367946872) 15 mg/dL 7-23 GLUCOSE (test code = 7239294361) 318 mg/dL 70-110 H CREATININE (test code = 9637057743) 0.76 mg/dL 0.60-1.25 TOTAL BILI (test code = 6173794458) 1.5 mg/dL 0.1-1.1 H CALCIUM (test code = 4472056117) 9.1 mg/dL 8.6-10.6 T PROTEIN (test code = 1437570037) 7.7 g/dL 6.3-8.2 ALBUMIN (test code = 3878601452) 5.0 g/dL 3.5-5.0 ALK PHOS (test code = 9112351369) 124 U/L 34-122 H ALTv (test code = 1742-6) 173 U/L 5-50 H AST(SGOT) (test code = 5165874967) 76 U/L 13-40 H eGFR (test code = 6088276968) mL/min/1.73m2 RAFAEL (test code = RAFAEL) Association [...] imaging tests). Lab Interpretation (test code = 57770-3) [facility]view[facility], [id number] 16:11:22* Test Item Value Reference Range Interpretation Comme nts LIPASE (test code = 2004360660) 22 U/L 0-220 Lab Interpretation (test cod e = 57439-2) [facility] with Dctnmqcekuts0500-15-70 15:57:05* Test Item Value Reference Range Interpretation Comme nts WBC (test code = 6690-2) See_Comment H [Automated [employer]] The system which generated this result transmitted reference range: 4.20 - 10.70 10*3/?L. The reference range was not used to interpret this result as normal/abnormal. RBC (test code = 789-8) See_Comment [Automated [employer]] The system which generated this result transmitted [...] g/dL 31.2-35.0 H RDW-SD (test code = 66387-7) 35.5 fL 38.5-51.6 L RDW-CV (test code = 788-0) 11.8 % 12.1-15.4 L PLT (test code = 777-3) See_Comment [Automated messa ge] The system which generated this result transmitted reference range: 150 - 328 10*3/?L. The reference range was not used to interpret this result as normal/abnormal. MPV (test code = 85503-0) 10.3 fL 9.8-13.0 NRBC/100 WBC (test code = 0376875937) See_Comment [Automated me ssage] The system which generated this result transmitted reference range: 0.0 - 10.0 /100 WBCs. The reference range was not used to interpret this result as normal/abnormal. NRBC x10^3 (test code = 3131162115) See_Comment [Automated messa ge] The system which generated this result transmitted reference range: 10*3/?L. The reference range was not used to interpret this result as normal/abnormal. GRAN MAT (NEUT) % (test code = 770-8) 64.6 % IMM GRAN % (test code = 5640816224) 0.50 % LYMPH % (test code = 736-9) 25.3 % MONO % (test code = 5905-5) 7.3 % EOS % (test code = 713-8) 1.9 % BASO % (test code = 706-2) 0.4 % GRAN MAT x10^3(ANC) (test code = 9609472872) 7.62 10*3/uL 1.99-6.95 H IMM GRAN x10^3 (test code = 9520049271) 0.06 10*3/uL 0.00-0.06 LYMPH x10^3 (test code = 731-0) 2.98 10*3/uL 1.09-3.23 MONO x10^3 (test code = 742-7) 0.86 10*3/uL 0.36-1.02 EOS x10^3 (test code = 711-2) 0.22 10*3/uL 0.06-0.53 BASO x10^3 (test code = 704-7) 0.05 10*3/uL 0.01-0.09 Lab Interpretation (test code = 94337-9) Abnormal [facility] GLUCOSE (AUTOMATED)2020-11-08 20:30:00* Test Item Value Reference Range Interpretation Comme [facility] POCT GLU (test code = 3477117908) 181 mg/dL 70-110 H Lab Interpretation (test cod e = 93204-6) Abnormal [facility] Metabolic Panel (NA, K, CL, CO2, GLUCOSE, BUN, CREATININE, CA)2020-11-08 18:48:00* Test Item Value Reference Range Interpretation Comme [facility] NA (test code = 4519508863) 134 mmol/L 135-145 L K (test code = 6369532450) 4.0 mmol/L 3.5-5 CL (test code = 9365589365) 96 mmol/L 98-108 L CO2 TOTAL (test code = 7228435698) 29 mmol/L 23-31 AGAP (test code = 4884752472) 2-16 BUN (test code = 5795494846) 10 mg/dL 7-23 GLUCOSE (test code = 5153206016) 368 mg/dL 70-110 H CREATININE (test code = 3000605663) 0.58 mg/dL 0.6-1.25 L CALCIUM (test code = 3844231410) 9.1 mg/dL 8.6-10.6 eGFR Calculation (Non-) (test code = 0573390217) mL/min/1.73m2 eGFR Calculation () (test code = 4688816243) mL/min/1.73m2 RAFAEL (test code = RAFAEL) Association [...] imaging tests). Lab Interpretation (test code = 25589-3) [facility] (ALB, T.PRO, BILI T, BU/BC, ALT, AST, ALK PHOS)2020-11-08 18:48:00* Test Item Value Reference Range Interpretation Comme nts TOTAL BILI (test code = 0015984148) 0.8 mg/dL 0.1-1.1 BILI UNCON (test code = 9797453037) 0.8 mg/dL 0.1-1.1 BILI CONJ (test code = 9430946539) 0.0 mg/dL 0-0.3 T PROTEIN (test code = 8033683473) 7.8 g/dL 6.3-8.2 ALBUMIN (test code = 1067817264) 4.7 g/dL 3.5-5 ALK PHOS (test code = 0529397530) 147 U/L 34-122 H ALTv (test code = 1742-6) 48 U/L 5-50 AST(SGOT) (test code = 5436165881) 42 U/L 13-40 H Lab Interpretation (test cod e = 69087-7) [facility]view[facility] Qejfw4903-84-26 18:48:00* Test Item Value Reference Range Interpretation Comme nts LIPASE (test code = 2647913106) 27 U/L 0-220 Lab Interpretation (test cod e = 17095-1) [facility]view[facility]inalysis[facility] 18:39:00* Test Item Value Reference Range Interpretation Comme nts APPEARANCE (test code = 8632316828) Clear Clear COLOR (test code = 8165662105) Yellow Yellow PH (test code = 0059391744) 4.8-8.0 SP GRAVITY (test code = 2102824045) 1.003-1.030 H GLU U QUAL (test code = 7656206163) 500 mg/dL Normal A BLOOD (test code = 1029905553) Negative Negative KETONES (test code = 9131440746) 5 mg/dL Negative A PROTEIN (test code = 2887-8) Negative Negative UROBILIN (test code = 3621661278) Normal Normal BILIRUBIN (test code = 2279791201) Negative Negative NITRITE (test code = 5364856467) Negative Negative LEUK ALYSHA (test code = 1741120092) Negative Negative RBC/HPF (test code = 4081968930) See_Comment [Automated messa ge] The system which generated this result transmitted reference range: 0 - 3 HPF. The reference range was not used to interpret this result as normal/abnormal. WBC/HPF (test code = 6265140210) See_Comment [Automated messa ge] The system which generated this result transmitted reference range: 0 - 5 HPF. The reference range was not used to interpret this result as normal/abnormal. BACTERIA (test code = 1919743736) Negative Negative Lab Interpretation (test code = 36573-7) Abnormal [facility] with Lxuttjvquzuy8576-01-23 18:36:00* Test Item Value Reference Range Interpretation [...] g/dL 31.2-35 H RDW-SD (test code = 37857-9) 33.7 fL 38.5-51.6 L RDW-CV (test code = 788-0) 11.5 % 12.1-15.4 L PLT (test code = 777-3) See_Comment H [Automated [employer]] The system which generated this result transmitted reference range: 150 - 328 10*3/?L. The reference range was not used to interpret this result as normal/abnormal. MPV (test code = 34648-1) 10.2 fL 9.8-13 NRBC/100 WBC (test code = 3042482574) See_Comment [Automated [employer] ssage] The system which generated this result transmitted reference range: 0.0 - 10.0 /100 WBCs. The reference range was not used to interpret this result as normal/abnormal. NRBC x10^3 (test code = 9113763747) <0.01 See_Comment [Automated [employer] ge] The system which generated this result transmitted reference range: 10*3/?L. The reference range was not used to interpret this result as normal/abnormal. GRAN MAT (NEUT) % (test code = 770-8) 60.3 % IMM GRAN % (test code = 7834177947) 0.70 % LYMPH % (test code = 736-9) 29.2 % MONO % (test code = 5905-5) 4.7 % EOS % (test code = 713-8) 3.9 % BASO % (test code = 706-2) 1.2 % GRAN MAT x10^3(ANC) (test code = 8603889030) 6.44 10*3/uL 1.99-6.95 IMM GRAN x10^3 (test code = 8966103518) 0.07 10*3/uL 0-0.06 H LYMPH x10^3 (test code = 731-0) 3.12 10*3/uL 1.09-3.23 MONO x10^3 (test code = 742-7) 0.50 10*3/uL 0.36-1.02 EOS x10^3 (test code = 711-2) 0.42 10*3/uL 0.06-0.53 BASO x10^3 (test code = 704-7) 0.13 10*3/uL 0.01-0.09 H Lab Interpretation (test code = 06557-1) [facility]normal [facility]"
[2023-11-11 15:36] LABS: Absolute Basophils 0.1 K/uL (0-0.5); Absolute Lymphocytes (CBC) 2.5 K/uL (0.7-4.9); Basophils % 1.7 % (0-1.3); Hematocrit 45.1 % (39.6-49.0); Lymphocytes % 31.7 % (15.3-44.8); MCV 83.3 fL (80-100); MPV 8.9 fL (7.6-11.3); Platelets 307 thou/uL (152-406); RBC Red Blood Cell Count 5.42 M/uL (4.33-5.43)
[2023-11-11 15:55] LABS: Protime INR 1.07
[2023-11-11 16:01] LABS: Troponin High Sensitivity 8.4 pg/mL (<58.9)
[2023-11-11 16:12] LABS: ALT/SGPT 36 U/L (16-61); AST/SGOT 18 U/L (15-37); Albumin 3.4 g/dL (3.4-5.0); Alkaline Phosphatase 126 U/L (45-117); Anion Gap 6.2 mEq/L (5.0-15.0); BUN Blood Urea Nitrogen 9 mg/dL (7-18); Bicarbonate 29 mEq/L (21-32); Bilirubin Direct 0.2 mg/dL (0-0.2); Bilirubin Indirect, Calculated 0.4 mg/dL (0.2-0.8); Bilirubin Total 0.6 mg/dL (0.2-1.0); Glomerular Filtration Rate 119 ml/min (=/>90); Glucose Level 205 mg/dL (74-106); Potassium 3.2 mEq/L (3.5-5.1); Protein, Total 6.7 g/dL (6.4-8.2); Sodium Level 140 mEq/L (136-145)
--- NOTE | 2023-11-11 16:15 | ER ---
Nurse's Notes [facility] Name: Jimenez Patrick Age: 28 yrs Sex: Male : 1995 Arrival Date: 11/11/2023 Time: 14:57 Bed 3 Private MD: Diagnosis: Major depressive disorder, single episode, moderate;Suicidal ideations;Suicide attempt Presentation: 11/10 15:00 Chief complaint: Chief complaint: Patient states: reports taking approximately 20 tabs aa5 of Metoprolol Tartrate 25 mg and 10 tabs of Gabapentin 100 mg, ingestion time was 30 minutes [employer]. Pt awake and alert, clear speech noted, accompanied by father. 15:00 Risk Assessment: Do you want to hurt yourself or someone else? Patient reports aa5 desire/thoughts of hurting themselves or someone else. Provider notified. 15:00 Acuity: MOSES 2 aa5 15:00 Method Of Arrival: Ambulatory aa5 15:06 Coronavirus screen: Vaccine status: Patient reports being unvaccinated. Ebola Screen: mb9 No symptoms or risks identified at this time. Initial Sepsis Screen: Does the patient meet any 2 criteria? No. Patient's initial sepsis screen is negative. Does the patient have a suspected source of infection? No. Patient's initial sepsis screen is negative. Onset of symptoms was November 11, 2023. Historical: - Allergies: 15:06 NKA; aa5 - Home Meds: 15:50 Humulin 70/30 U-100 Insulin 100 unit/mL (70-30) Sub-Q crtg [Active]; mb9 - PMHx: 15:06 Chronic Pancreatitis; Diabetes - IDDM; Hypertensive disorder; aa5 - PSHx: 15:06 Cholecystectomy; I\\T\\D; stents x 2 in pancreas; aa5 - Immunization history:: Adult Immunizations up to date. - Social history:: Smoking status: Patient reports the use of cigarette tobacco products. Screenin:24 [facility] ED Fall Risk Assessment (Adult) History of falling in the last 3 months, mb9 including since admission No falls in past 3 months (0 pts) Confusion or Disorientation No (0 pts) Intoxicated or Sedated No (0 pts) Impaired Gait No (0 pts) Mobility Assist Device Used No (0 pt) Altered Elimination No (0 pt) Score/Fall Risk Level 0 - 2 = Low Risk Oriented to surroundings, Maintained a safe environment, Educated pt \\T\\ family on fall prevention, incl call for assistance when getting out of bed. Abuse screen: Denies threats or abuse. Nutritional screening: No deficits noted. Tuberculosis screening: No symptoms or risk factors identified. Assessment: 15:14 Reassessment: Spoke to [employer], case # [id number], spoke to domenica Thomas recommendations are as follow: EKG, cardiac monitoring, obtain OD panel, administer activated charcoal MARITA if pt's airway is protected and if positive bowel sounds in all quadrants, premedicate with Zofran prior to charcoal administration, dose recommended is 1 gram/kg. Beta trey may cause hypotension, bradycardia, hypoglycemia, monitor frequently. Treatment for hypotension is IV fluids, vasopressors, calcium, glucagon, and high dose insulin therapy if hypotension is persistent, contact poison control again for guidance with high dose insulin therapy due to patient being diabetic. Treat bradycardia with atropine as needed for persistent bradycardia. Gabapentin may cause sedation, ataxia, nystagmus, slurred speech, and GI upset. MD was notified of recommendations. . 15:23 General: Appears in no apparent distress. Behavior is calm, cooperative. Pain: Denies mb9 pain. Neuro: Boyer Agitation-Sedation Scale (RASS): 0 - Alert and Calm Level of Consciousness is awake, alert, obeys commands, Oriented to person, place, time, situation, Appropriate for age. Cardiovascular: Heart tones S1 S2 present Patient's skin is warm and dry. Pulses are all present. Rhythm is regular. Respiratory: Airway is patent Respiratory effort is even, unlabored, Respiratory pattern is regular, symmetrical, Breath sounds are clear bilaterally. GI: Abdomen is flat, non-distended, Bowel sounds present X 4 quads. Abd is soft and non tender X 4 quads. : No signs and/or symptoms were reported regarding the genitourinary system. EENT: No signs and/or symptoms were reported regarding the EENT system. Derm: Skin is pink, warm \\T\\ dry. Musculoskeletal: Range of motion: intact in all extremities. 16:01 Reassessment: Dr. Laura at bedside speaking to pt. vamshi 16:08 Reassessment: No changes from previously documented assessment. Patient is alert, mb9 oriented x 3, equal unlabored respirations, skin warm/dry/pink. Sitter at bedside. 16:47 Reassessment: Gave nurse to nurse to Car[facility] at [facility]. mb9 17:08 Reassessment: No changes from previously documented assessment. Patient is alert, mb9 oriented x 3, equal unlabored respirations, skin warm/dry/pink. sitter at bedside. 18:08 Reassessment: No changes from previously documented assessment. Patient is alert, mb9 oriented x 3, equal unlabored respirations, skin warm/dry/pink. sitter at bedside. Overdose: 15:06 [place] Suicide Severity Screening: "In the past month, have you wished you were mb9 or wished you could go to sleep and not wake up?" Patient responds "yes." Based off client's responses, additional C-SSRS screening questions required. "In the past month, have you actually had any thoughts of killing yourself?" Patient responds "yes." Based off client's responses, additional C-SSRS screening questions required. "In your lifetime, have you ever done anything, started to do anything, or prepared to do anything to end your life?" Patient responds "yes." Patient reports suicidal intent within 3 past months. Vital Signs: 15:00 BP 140 / 98; Pulse 65; Resp 18 S; Temp 97.3(TE); Pulse Ox 98% on R/A; aa5 15:14 Weight 87.09 kg; Height 5 ft. 9 in. ; aa5 15:40 BP 136 / 98; Pulse 60; Resp 16; Pulse Ox 100% on R/A; mb9 16:06 BP 129 / 86; Pulse 58; Resp 16; Pulse Ox 100% on R/A; mb9 16:46 BP 129 / 84; Pulse 67; Resp 18; Pulse Ox 100% on R/A; mb9 17:08 BP 128 / 78; Pulse 62; Resp 18; Pulse Ox 100% ; mb9 18:20 BP 132 / 88; Pulse 62; Resp 16; Pulse Ox 100% ; mb9 15:14 Body Mass Index 28.35 (87.09 kg, 175.26 cm) aa5 ED Course: 14:57 Patient arrived in ED. rg4 14:58 Luis Laura MD is Attending Physician. salbador 15:00 Arm band placed on. aa5 15:06 Breneman, Dariela, RN is Primary Nurse. mb9 15:06 Placed in gown. Bed in low position. Call light in reach. Side rails up X 1. Client mb9 placed on continuous cardiac and pulse oximetry monitoring. NIBP monitoring applied. classroom monitor on. Sitter at bedside. 15:08 Safety Checks: Personal items have been removed. The door is open or patient has been mb9 placed in a hallway bed/chair. A family member and/or friend is present and encouraged to stay. Sitter present at this time. 15:08 Warm blanket given. One-on-one care X 15 minutes. mb9 15:10 EKG done, by ED staff, reviewed by Luis Laura MD. aa5 15:12 Inserted saline lock: 18 gauge in left antecubital area, using aseptic technique. aa5 15:20 Initial lab(s) drawn, by ED staff, sent to lab. hb 15:21 Inserted saline lock: 16 gauge in right antecubital area, using aseptic technique. aa5 15:23 Triage completed. mb9 15:50 No provider procedures requiring assistance completed. mb9 16:13 Diet: Patient given snack. Patient given juice. Tolerated well. Assisted with urinal. mb9 Oral care given. 16:13 faxed patient clinical's to [facility] and [facility] as eb requested by the provider. 16:39 connected the nurse from [facility] with Tata for nurse to nurse report. eb 17:04 connected the nurse from [facility] with Tata Rn for patient transfer eb consultation. 17:22 administrative approval given by Jerry Adams / [place] [facility] [place] 18:20 IV discontinued, intact, bleeding controlled, No redness/swelling at site. Pressure mb9 dressing applied. Administered Medications: 15:21 Drug: NS 0.9% IV 1000 ml IV at 1 bolus Per protocol; 1000 mL bolus Route: IV; Rate: 1 aa5 bolus; Site: left antecubital; 16:09 Follow up: Response: No adverse reaction; IV Status: Completed infusion mb9 15:37 Drug: Actidose-Sorbitol PO Suspension 90 grams PO once Route: PO; mb9 16:09 Follow up: Response: No adverse reaction mb9 16:22 Drug: Potassium PO Effervescent Tablet 50 mEq PO once; dissolve in 4 ounces of water or mb9 juice Route: PO; 16:47 Follow up: Response: No adverse reaction mb9 Medication: 15:24 VIS not applicable for this client. 9 Outcome: 16:15 ER care complete, transfer ordered by . salbador 18:20 Transferred by helicopter Transfer form completed. mb9 18:20 Condition: stable 18:20 Instructed on the need for transfer, 18:21 Patient left the ED. mb9 Signatures: Luis Laura MD MD cha Calderon, Audri RN RN aa5 Nivia Langford RN RN Nilda Suazo 4 Kimmy Giles, Sofía Potter, RN RN mb9 Corrections: (The following items were deleted from the chart) 15: 15:00 Chief complaint: aa5 aa5 15: 15:14 Acuity: MOSES 2 mb9 aa 15: 15:06 Risk Assessment: Do you want to hurt yourself or someone else? Patient reports aa5 desire/thoughts of hurting themselves or someone else. Provider notified. 9 15: 15:06 Method Of Arrival: Wheelchair 9 aa5 15:30 15:00 Chief complaint: aa5 aa5
--- NOTE | 2023-11-11 16:15 | EDPHYS ---
Physician Documentation [facility] Name: Jimenez Patrick Age: 28 yrs Sex: Male : 1995 Arrival Date: 11/11/2023 Time: 14:57 Bed 3 Private MD: ED Physician Luis Laura HPI: 11/10 16:07 This 28 yrs old Male presents to ER via Ambulatory with complaints of Overdose.salbador 16:07 The patient presents to the emergency department after a known overdose, that was salbador intentional. Context: Time: this morning, Extent: gabapentin and metroprolol. Associated signs and symptoms: The patient has no apparent associated signs or symptoms. Severity of symptoms: At their worst the symptoms were very mild in the emergency department the symptoms are unchanged. The patient has experienced similar episodes in the past, a few times. Historical: - Allergies: 15:06 NKA; aa5 - Home Meds: 15:50 Humulin 70/30 U-100 Insulin 100 unit/mL (70-30) Sub-Q crtg [Active]; mb9 - PMHx: 15:06 Chronic Pancreatitis; Diabetes - IDDM; Hypertensive disorder; aa5 - PSHx: 15:06 Cholecystectomy; I\T\D; stents x 2 in pancreas; aa5 - Immunization history:: Adult Immunizations up to date. - Social history:: Smoking status: Patient reports the use of cigarette tobacco products. ROS: 16:08 Constitutional: Negative for fever, chills, and weight loss, Eyes: Negative for injury, salbador pain, redness, and discharge, ENT: Negative for injury, pain, and discharge, Neck: Negative for injury, pain, and swelling, Cardiovascular: Negative for chest pain, palpitations, and edema, Respiratory: Negative for shortness of breath, cough, wheezing, and pleuritic chest pain, Abdomen/GI: Negative for abdominal pain, nausea, vomiting, diarrhea, and constipation, Back: Negative for injury and pain, : Negative for injury, bleeding, discharge, and swelling, MS/Extremity: Negative for injury and deformity, Skin: Negative for injury, rash, and discoloration, Neuro: Negative for headache, weakness, numbness, tingling, and seizure, Allergy/Immunology: Negative for hives, rash, and allergies, Endocrine: Negative for neck swelling, polydipsia, polyuria, polyphagia, and marked weight changes, Hematologic/Lymphatic: Negative for swollen nodes, abnormal bleeding, and unusual bruising, 16:08 Psych: Positive for anxiety, depression, suicide gesture, suicidal ideation, Exam: 16:08 Constitutional: This is a well developed, well nourished patient who is awake, alert, salbador and in no acute distress. Head/Face: Normocephalic, atraumatic. Eyes: Pupils equal round and reactive to light, extra-ocular motions intact. Lids and lashes normal. Conjunctiva and sclera are non-icteric and not injected. Cornea within normal limits. Periorbital areas with no swelling, redness, or edema. ENT: Nares patent. No nasal discharge, no septal abnormalities noted. Tympanic membranes are normal and external auditory canals are clear. Oropharynx with no redness, swelling, or masses, exudates, or evidence of obstruction, uvula midline. Mucous membranes moist. Neck: Trachea midline, no thyromegaly or masses palpated, and no cervical lymphadenopathy. Supple, full range of motion without nuchal rigidity, or vertebral point tenderness. No Meningismus. Chest/axilla: Normal chest wall appearance and motion. Nontender with no deformity. No lesions are appreciated. Cardiovascular: Regular rate and rhythm with a normal S1 and S2. No gallops, murmurs, or rubs. Normal PMI, no JVD. No pulse deficits. Respiratory: Lungs have equal breath sounds bilaterally, clear to auscultation and percussion. No rales, rhonchi or wheezes noted. No increased work of breathing, no retractions or nasal flaring. Abdomen/GI: Soft, non-tender, with normal bowel sounds. No distension or tympany. No guarding or rebound. No evidence of tenderness throughout. Back: No spinal tenderness. No costovertebral tenderness. Full range of motion. Male : Normal genitalia with no discharge or lesions. Skin: Warm, dry with normal turgor. Normal color with no rashes, no lesions, and no evidence of cellulitis. MS/ Extremity: Pulses equal, no cyanosis. Neurovascular intact. Full, normal range of motion. Neuro: Awake and alert, GCS 15, oriented to person, place, time, and situation. Cranial nerves II-XII grossly intact. Motor strength 5/5 in all extremities. Sensory grossly intact. Cerebellar exam normal. Normal gait. Psych: Awake, alert, with orientation to person, place and time. Behavior, mood, and affect are within normal limits. 16:08 ECG was reviewed by the Attending Physician. Vital Signs: 15:00 BP 140 / 98; Pulse 65; Resp 18 S; Temp 97.3(TE); Pulse Ox 98% on R/A; aa5 15:14 Weight 87.09 kg; Height 5 ft. 9 in. ; aa5 15:40 BP 136 / 98; Pulse 60; Resp 16; Pulse Ox 100% on R/A; mb9 16:06 BP 129 / 86; Pulse 58; Resp 16; Pulse Ox 100% on R/A; mb9 16:46 BP 129 / 84; Pulse 67; Resp 18; Pulse Ox 100% on R/A; mb9 17:08 BP 128 / 78; Pulse 62; Resp 18; Pulse Ox 100% ; mb9 18:20 BP 132 / 88; Pulse 62; Resp 16; Pulse Ox 100% ; mb9 15:14 Body Mass Index 28.35 (87.09 kg, 175.26 cm) aa5 MDM: 14:58 Patient medically screened. [facility] 16:10 Differential diagnosis: over medication, depression. Data reviewed: vital signs, nurses [facility] notes, lab test result(s), EKG. Consideration of Admission/Observation Escalation of care including admission/observation considered. I considered the following discharge prescriptions or medication management in the emergency department Medications were administered in the Emergency Department. See MAR. Independent interpretation of the following test(s) in the Emergency Department EKG: See my EKG interpretation above. Test considered but Not performed: Ultrasound no 2 d echo. Historians other than the Patient: Family Member: , dad and brother. Care significantly affected by the following chronic conditions: Hypertension, chronic pancreatitis, iddm. Counseling: I had a detailed discussion with the patient and/or guardian regarding the historical points, exam findings, and any diagnostic results supporting the discharge/admit diagnosis, lab results, the need to transfer to another facility, for higher level of care, [facility] does not immediately have the required specialist. 11/10 14:59 Order name: Acetaminophen; Complete Time: 16:15 [facility] 11/10 14:59 Order name: Basic Metabolic Panel; Complete Time: 16:15 [facility] 11/10 14:59 Order name: CBC with Diff; Complete Time: 15:57 [facility] 11/10 14:59 Order name: ETOH Level; Complete Time: 15:57 [facility] 11/10 14:59 Order name: Hepatic Function; Complete Time: 16:15 [facility] 11/10 14:59 Order name: PT-INR; Complete Time: 15:57 [facility] 11/10 14:59 Order name: Ptt, Activated; Complete Time: 15:57 [facility] 11/10 14:59 Order name: Salicylate; Complete Time: 16:15 [facility] 11/10 15:11 Order name: Troponin High Sensitivity; Complete Time: 16:05 [facility] 11/10 15:11 Order name: BNP; Complete Time: 16:05 [facility] 11/10 14:59 Order name: EKG; Complete Time: 15:00 [facility] 11/10 14:59 Order name: EKG - Nurse/Tech; Complete Time: 15:21 [facility] 11/10 14:59 Order name: IV Saline Lock; Complete Time: 15:21 [facility] 11/10 14:59 Order name: Labs collected and sent; Complete Time: 15:21 [facility] 11/10 14:59 Order name: Suicide Screening ([place]); Complete Time: 15:21 [facility] EC:08 Rate is 58 beats/min. Rhythm is regular. QRS [place] is Normal. [place] interval is normal. QRS salb[place] interval is normal. QT interval is normal. No Q waves. T waves are Normal. No ST changes noted. Clinical impression: Sinus bradycardia and No evidence of ischemia. Administered Medications: 15:21 Drug: NS 0.9% IV 1000 ml IV at 1 bolus Per protocol; 1000 mL bolus Route: IV; Rate: 1 aa5 bolus; Site: left antecubital; 16:09 Follow up: Response: No adverse reaction; IV Status: Completed infusion mb9 15:37 Drug: Actidose-Sorbitol PO Suspension 90 grams PO once Route: PO; mb9 16:09 Follow up: Response: No adverse reaction mb9 16:22 Drug: Potassium PO Effervescent Tablet 50 mEq PO once; dissolve in 4 ounces of water or mb9 juice Route: PO; 16:47 Follow up: Response: No adverse reaction mb9 Disposition Summary: 11/11/23 16:15 Transfer Ordered Notes: Transfer Location: [facility] salbador Reason: Higher level of care salbador Condition: Stable salbador Problem: new salbador Symptoms: have improved salbador Accepting Physician: to PSYCH(11/11/23 18:21) mb9 Diagnosis - Major depressive disorder, single episode, moderate salbador - Suicidal ideations salbador - Suicide attempt salbador Forms: - Medication Reconciliation Form salbador - SBAR form salbador Signatures: Dispatcher [employer] EDLuis Gonzales MD MD cha Calderon, Audri, RN RN aa5 Sofía Michelle RN RN mb9 Corrections: (The following items were deleted from the chart) 18:21 16:15 to PSYCH salbador mb9
[2023-11-11 18:48] VITALS: BP 132/88; TEMP 97.3; O2SAT 100
== END ==
LOC: ER 14:57
DX: T42.6X2A Poisoning by other antiepileptic and sedative-hypnotic drugs, intentional self-harm, initial encounter (principal); F32.1 Major depressive disorder, single episode, moderate; E11.9 Type 2 diabetes mellitus without complications; I10 Essential (primary) hypertension; Z79.4 Long term (current) use of insulin; Z72.0 Tobacco use
CPT/HCPCS: 85025; 80048; 36415; 85610; 80076; 85730; 84484; 83880; 96360; 99285; 80143; 80179; 82077; J7030

== ENCOUNTER 2023-12-05 09:52 | Emergency (ER) | payer OTHER ==
--- OUTSIDE RECORDS SUMMARY | 2023-12-05 09:56 | XMS REPORT | Continuity of Care Document ---
Author Name Unknown Address [address] [facility] [id number] [facility] Address [address] [facility] [place] [address] Care Team Providers Care Analytical Tech Name Role Phone PCP, PATIENT DOES NOT HAVE A Primary Care Physic adry Unavailable BROOKLYNN AGUILAR Attending Clinician Unavailable NANCY WEST Attending Clinician UnavailMICHAEL Nogueira Attending Clinician Unavailable GENESIS MONTGOMERY Attending Clinician Unavailab barbara [id number] Attending Clinician Unavailable Jenelle REYES, Nabil Basurto Attending Clinician Unavail able LAZARO HUNTER Attending Clinician Unavailable Augustin Kincaid Attending Clinician [phone] Esa Ko DO Attending Clinician [phone] Lazaro Hunter MD Attending Clinician [phone] Syeda Alberts Attending Clinician [phone] SYEDA PERSAUD Attending Clinician Unavailable Doctor Unassigned, Maeser Attending Clinician U LAZARO Jolly Admitting Clinician Unavailable Lazaro Hunter MD Admitting Clinician [phone] Payers Payer Name Policy Type Policy Number Effective Date Expirati on Date Source AETNA MP [facility] SILVER 5 [facility] LOOP TENDER 94 ON 9 [id number] 2023 00:00:00 Problems Condition Name Condition Details Condition Category Status Onset Date Resolution Date Last Treatment Date Treating Clinician Comments Source Current moderate episode of major depressive disorder Current moderate episode of major depressive disorder Disease Active 3- 00:00: 00 Parvin Brunsonold - Externa l DM (diabetes mellitus) (multi HCC) DM (diabetes mellitus) (multi HCC) Disease Active 10-06 00:00: 00 Parvin Brunsonold - Externa l Type 1 diabetes mellitus with hyperglyce tess (multi HCC) Type 1 diabetes mellitus with hyperglyce tess (multi HCC) Disease Active 10-06 00:00: 00 Parvin Brunsonold - Externa l Chronic pancreatit is (multi HCC) Chronic pancreatit is (multi HCC) Disease Active 10-06 00:00: 00 Parvin Brunsonold - Externa l HTN (hypertens ion) HTN (hypertens ion) Disease Active 10-06 00:00: 00 Parvin Brunsonold - Externa l Elevated liver function tests Elevated liver function tests Disease Active 10-06 00:00: 00 Parvin Brunsonold - Externa l Acute on chronic pancreatit is Acute on chronic pancreatit is Disease Active 09-12 00:00: 00 [facility] Epigastric pain Epigastric pain Disease Active 09-11 00:00: 00 [facility] Obesity (BMI 30-39.9) Obesity (BMI 30-39.9) Disease Active 04-16 00:00: 00 [facility] Mesenteric adenitis Mesenteric adenitis Disease Active 2009-09 00:00: 00 [facility] Pancreatit is Pancreatit is Disease Active 2009-09 00:00: 00 [facility] Abdominal pain Abdominal pain Disease Active 2009-09 00:00: 00 [facility] Other acne Other acne Disease Active 04-13 00:00: 00 [facility] Viral warts Viral warts Disease Active 04-13 00:00: 00 Overview: Formattin g of this note might be different from the original. 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 [facility] Allergies, Adverse Reactions, Alerts Allergy Name Allergy Type Status Severity Reaction(s) Onset Date Inactive Date Treating Clinician Comments Source NO KNOWN ALLERGIE S Drug Class Active [facility] Social History Social Habit Start Date Stop Date Quantity Comments Source History SDOH Social Connections Get Together [facility] History SDOH Social Connections Yazidism [facility] History SDOH Social Connections Membership [facility] History SDOH Social Connections Meetings [facility] Sexual orientation Nicolasa Knowles - External History of tobacco use Cigarette Smoker Parvin maravilla - External Alcohol intake 2023-11-29 00:00:00 2023-11-29 00:00:00 Current drinker of alcohol (finding) Parvin Knowles - External History of Social function 2023-10-06 [...] Smokeless tobacco non-user Parvin Knowles - External History SDOH Physical Activity MPS 2022-09-13 00:00:00 2022-09-13 00:00:00 3 [facility] History SDOH Financial 2022-09-13 00:00:00 2022-09-13 00:00:00 5 [facility] History SDOH Food Worry 2022-09-13 00:00:00 2022-09-13 00:00:00 1 [facility] History SDOH Food Scarcity 2022-09-13 00:00:00 2022-09-13 00:00:00 1 [facility] History SDOH Transport Med 2022-09-13 00:00:00 2022-09-13 00:00:00 2 [facility] History SDOH Transport Non-Med 2022-09-13 00:00:00 2022-09-13 00:00:00 2 [facility] History SDOH Alcohol Frequency 2022-09-13 00:00:00 2022-09-13 00:00:00 1 [facility] History SDOH Alcohol Std Drinks 2022-09-13 00:00:00 2022-09-13 00:00:00 0 [facility] History SDOH Alcohol Binge 2022-09-13 00:00:00 2022-09-13 00:00:00 1 [facility] History SDOH Social Connections Phone 2022-09-13 00:00:00 2022-09-13 00:00:00 5 [facility] History SDOH Social Connections Living 2022-09-13 00:00:00 2022-09-13 00:00:00 5 [facility] History SDOH Physical Activity DPW 2022-09-13 00:00:00 2022-09-13 00:00:00 4 [facility] Exposure to SARS-CoV-2 (event) 2022-09-01 00:00:00 2022-09-11 13:58:00 Not sure [facility] Sex Assigned At 1995 00:00:00 1995 00:00:00 Parvin Chowdhury Smoking Status Start Date Stop Date Source Occasional tobacco smoker 2023-10-06 00:00:00 Parvin Knowles - External Ex-smoker 2022-09-12 00:00:00 2022-09-12 00:00:00 [facility] Unknown if ever smoked Unive [facility] Medications Ordered Medication Name Filled Medication Name Start Date Stop Date Current Medication? Ordering Clinician Indication Dosage Frequency Signature (SIG) Comments Components Source Sertraline HCl 25 MG oral Tablet 11-28 00:00: 00 Yes [id number] 25mg Take 1 tablet (25 mg total) by mouth daily. Parvin Llanosa l Insulin Glargine (Basaglar KwikPen) 100 UNIT/ML subcutaneou s Solution Pen-injecto r 11-28 00:00: 00 Yes [id number] 9101 42U Inject 42 units into the skin daily (with breakfast) 40 units sc daily. Parvin Boyrenita Rosa siegel Continuous Blood Gluc Sensor (Dexcom G6 Sensor) does not apply Misc 11-28 00:00: 00 Yes [id number] Check BS continuous ly. Parvin Greenmichaelrenita Lee Vieta l Continuous Blood Gluc Transmit (Dexcom G6 Transmitter ) does not apply Misc 11-28 00:00: 00 Yes [id number] Check BS continousl y. Parvin Greenmichaelrenita Lee Vieta christal Continuous Blood Gluc Medical Aides Teacher (Dexcom G6 Medical Aides Teacher) does not apply Device 11-28 00:00: 00 Yes [id number] Check BS continuous ly. Parvin siegel Mirtazapine 15 MG oral Tablet 11-17 00:00: 00 11-28 00:00 :00 No 15mg Take 1 tablet (15 mg total) by mouth nightly. Parvin theodore Llanosa christal Insulin Pen Needle (BD Pen Needle Connie 2nd Gen) 32G X 4 MM does not apply Misc 10-28 00:00: 00 Yes [id number] 9101 Use as directed. Parvin Greenmichaelrenita Rosa Llanosa l Insulin Pen Needle (BD Pen Needle Connie 2nd Gen) 32G X 4 MM does not apply Misc 10-28 00:00: 00 Yes [id number] 9101 Use as directed. Parvin Llanosa christal Metoprolol Tartrate (LOPRESSOR) 25 MG oral Tablet 10-27 00:00: 00 Yes [id number] 25mg Take 1 tablet (25 mg total) by mouth daily. Parvin siegel Insulin Glargine (Basaglar KwikPen) 100 UNIT/ML subcutaneou s Solution Pen-injecto r 10-27 00:00: 00 Yes [id number] 9101 40 units sc daily. Parvin Llanosa christal Metoprolol Tartrate (LOPRESSOR) 25 MG oral Tablet 10-27 00:00: 00 11-28 00:00 :00 No [id number] 25mg Take 1 tablet (25 mg total) by mouth daily. Parvin siegel Insulin Glargine (Basaglar KwikPen) 100 UNIT/ML subcutaneou s Solution Pen-injecto r 10-27 00:00: 00 11-28 00:00 :00 No [id number] 9101 40 units sc daily. Parvin siegel Insulin NPH Isophane & Regular (NOVOLIN 70/30 SC) 10-06 10:25: 45 10-06 00:00 :00 No 60U Inject 60 units into the skin daily. Parvin siegel Metoprolol Tartrate (LOPRESSOR) 25 MG oral Tablet 10-06 00:00: 00 Yes [id number] 25mg Take 1 tablet (25 mg total) by mouth daily. Parvin siegel Insulin Glargine (Basaglar KwikPen) 100 UNIT/ML subcutaneou s Solution Pen-injecto r 10-06 00:00: 00 Yes [id number] 9101 40 units sc daily. Parvin siegel Continuous Blood Gluc Medical Aides Teacher (Dexcom G6 Medical Aides Teacher) does not apply Device 10-06 00:00: 00 Yes [id number] Check BS continuous ly. Parvin siegel Continuous Blood Gluc Sensor (Dexcom G6 Sensor) does not apply Misc 10-06 00:00: 00 Yes [id number] Check BS continuous ly. Parvin Llanosa christal Continuous Blood Gluc Transmit (Dexcom G6 Transmitter ) does not apply Misc 10-06 00:00: 00 Yes [id number] Check BS continousl y. Parvin siegel Gabapentin 100 MG oral Capsule 10-06 00:00: 00 Yes [id number] 100mg Q.[id number] 3D Take 1 capsule (100 mg total) by mouth 3 times daily as needed (pain). Parvin Llanosa christal Continuous Blood Gluc Medical Aides Teacher (Dexcom G6 Medical Aides Teacher) does not apply Device 0 2- 00:00: 00 Yes [id number] Check BS continuous ly. Parvin Lee Externa l Continuous Blood Gluc Sensor (Dexcom G6 Sensor) does not apply Misc 0 2- 00:00: 00 Yes [id number] Check BS continuous ly. Parvin Knowles - Externa l Continuous Blood Gluc Transmit (Dexcom G6 Transmitter ) does not apply Misc 0 2- 00:00: 00 Yes [id number] Check BS continousl y. Parvin Greenmichaelrenita Llanosa l Gabapentin 100 MG oral Capsule 2- 00:00: 00 Yes [id number] 100mg Q.[id number] 3D Take 1 capsule (100 mg total) by mouth 3 times daily as needed (pain). Parvin Llanosa christal Continuous Blood Gluc Medical Aides Teacher (Dexcom G6 Medical Aides Teacher) does not apply Device 10-06 00:00: 00 11-28 00:00 :00 No [id number] Check BS continuous ly. Parvin Llanosa l Continuous Blood Gluc Sensor (Dexcom G6 Sensor) does not apply Misc 2 00:00: 00 11-28 00:00 :00 No [id number] Check BS continuous ly. Parvin Lee Externa l Continuous Blood Gluc Transmit (Dexcom G6 Transmitter ) does not apply Misc 2 00:00: 00 11-28 00:00 :00 No [id number] Check BS continousl y. Parvin Llanosa christal Gabapentin 100 MG oral Capsule 2- 00:00: 00 11-28 00:00 :00 No [id number] 100mg Q.[id number] 3D Take 1 capsule (100 mg total) by mouth 3 times daily as needed (pain). Parvin Lee Externa christal Acetaminoph en-Codeine 300-30 MG oral Tablet 1-12 00:00: 00 10-06 00:00 :00 No 1{tbl} Q.25D Take 1 tablet by mouth every 6 hours as needed for pain FOR PAIN. Parvin Knowles - Externsaroj siegel insulin NPH and regular human 70-30 (NOVOLIN 70/30 U-100 INSULIN) 100 unit/mL (70-30) injection 09-14 12:13: 02 09-14 00:00 :00 No 60U inject 60 Units under the skin 2 (two) times daily before breakfast and dinner. [facility] insulin NPH and regular human 70-30 (NOVOLIN 70/30 U-100 INSULIN) 100 unit/mL (70-30) injection 09-14 00:00: 00 Yes [id number] 60U inject 60 Units under the skin 2 (two) times daily before breakfast and dinner. [facility] insulin NPH and regular human 70-30 (NOVOLIN 70/30 U-100 INSULIN) 100 unit/mL (70-30) injection 09-14 00:00: 00 Yes [id number] 60U inject 60 Units under the skin 2 (two) times daily before breakfast and dinner. [facility] atorvastati n 40 mg tablet 09-14 00:00: 00 10-15 05:59 :00 No [id number] 40mg Take 1 tablet by mouth at bedtime for 30 days. [facility] lisinopriL 10 mg tablet 09-14 00:00: 00 10-15 05:59 :00 No [id number] 10mg Take 1 tablet by mouth in the morning and 1 tablet in the evening. Do all this for 30 days. [facility] atorvastati n 40 mg tablet 09-14 00:00: 00 10-15 05:59 :00 No [id number] 40mg Take 1 tablet by mouth at bedtime for 30 days. [facility] lisinopriL 10 mg tablet 09-14 00:00: 00 10-15 05:59 :00 No [id number] 10mg Take 1 tablet by mouth in the morning and 1 tablet in the evening. Do all this for 30 days. [facility] morpHINE (4 mg/mL) injection 4 mg 09-13 09:53: 10 Yes 4mg 4 mg, Slow IV Push, Q4HPRN, Starting on 09/13/22 at 0353, Until Discontinu ed, Routine, Pain (scale 7-10) [facility] atorvastati n (LIPITOR) tablet 40 mg 09-13 03:00: 00 Yes 40mg 40 mg, Oral, QHS, First dose on 09/12/22 at 2100, Until Discontinu ed, Routine [facility] lisinopriL (PRINIVIL,Z ESTRIL) tablet 10 mg 09-12 14:45: 00 Yes 10mg 10 mg, Oral, BID, First dose (after last modificati on) on 09/12/22 at 0845, Until Discontinu ed, Routine [facility] KCL (KLOR-CON M20) tablet 40 mEq 09-12 13:45: 00 09-12 14:15 :00 No 40meq 40 mEq, Oral, ONCE, 1 dose, On 09/12/22 at 0745, Routine [facility] potassium chloride in water 10 mEq/100 mL RTU 10 mEq 09-12 13:00: 00 09-12 16:20 :00 No 10meq 10 mEq, IV Piggyback, Q1H, 2 doses, First dose on 09/12/22 at 0700, Last dose on 09/12/22 at 0800, Administer over 60 Minutes, 100 mL [facility] lisinopriL (PRINIVIL,Z ESTRIL) tablet 5 mg 09-12 05:00: 00 09-12 14:35 :46 No 5mg 5 mg, Oral, BID, First dose on 09/11/22 at 2300, Until Discontinu ed, Routine [facility] lactated ringers IV infusion 1,000 mL 09-12 03:15: 00 Yes 1000mL at 150 mL/hr, 1,000 mL, IV Infusion, CONTINUOUS , Starting on 09/11/22 at 2115, Until Discontinu ed, Routine [facility] Sliding Scale Insulin - Lispro (HumaLOG) + Fsbg Testing 09-11 23:00: 00 Yes Subcutaneo us, TID MEALS+HS, First dose on 09/11/22 at 1700, Until Discontinu ed, Routine [facility] enoxaparin (LOVENOX) injection 40 mg 09-11 23:00: 00 Yes 40mg 40 mg, Subcutaneo us, DAILY, First dose on 09/11/22 at 1700, Until Discontinu ed, Routine [facility] lactated ringers IV infusion 1,000 mL 09-11 19:15: 00 09-12 03:05 :27 No 1000mL at 125 mL/hr, 1,000 mL, IV Infusion, CONTINUOUS , Starting on 09/11/22 at 1315, Until 09/11/22 at 2105, Routine [facility] lactated ringers IV infusion 1,000 mL 09-11 19:00: 00 09-11 19:56 :58 No 1000mL at 999 mL/hr, 1,000 mL, Intravenou s, ONCE, 1 dose, On 09/11/22 at 1300, Routine [facility] NaCl 0.9% (NS) IV infusion 1,000 mL 09-11 18:15: 00 09-11 19:00 :00 No 1000mL at 999 mL/hr, Intravenou s, ONCE, 1 dose, On 09/11/22 at 1215, [facility] FENTanyl PF (SUBLIMAZE (PF)) injection 50 mcg 09-11 18:05: 00 09-11 18:10 :00 No 50ug 50 mcg, Slow IV Push, ONCE, 1 dose, On 09/11/22 at 1215, [facility] ondansetron (ZOFRAN (PF)) injection 4 mg 09-11 18:05: 00 09-11 18:09 :00 No 4mg 4 mg, Slow IV Push, ONCE, 1 dose, On 09/11/22 at 1215, [facility] glucagon (GLUCAGEN DIAGNOSTIC KIT) injection 1 mg 09-11 18:04: 12 Yes 1mg 1 mg, Intramuscu lar, PRN, Starting on 09/11/22 at 1204, Until Discontinu ed, MARITA, Blood Glucose < or = 70 mg/dL and patient is unable to swallow or has mental changes. [facility] dextrose 50 % in water (D50W) injection 25 mL 09-11 18:04: 12 Yes 25mL 25 mL, Slow IV Push, PRN, Starting on 09/11/22 at 1204, Until Discontinu ed, MARITA, Blood Glucose < or = 70 mg/dL and patient is unable to swallow or has mental status changes. [facility] ondansetron (ZOFRAN (PF)) injection 4 mg 09-11 18:04: 03 Yes 4mg 4 mg, Slow IV Push, Q6HPRN, Starting on 09/11/22 at 1204, Until Discontinu ed, Routine, Nausea and Vomiting (N/V) [facility] morpHINE (2 mg/mL) injection 2 mg 09-11 18:03: 52 09-12 18:02 :52 No 2mg 2 mg, Slow IV Push, Q4HPRN, Starting on 09/11/22 at 1203, Until 09/12/22 at 1202, Routine, Pain (scale 7-10) [facility] HYDROcodone -acetaminop hen (NORCO 5) 5-325 mg tablet 1 tablet 09-11 18:03: 48 09-13 18:02 :48 No 1{tbl} 1 tablet, Oral, Q6HPRN, Starting on 09/11/22 at 1203, Until 09/13/22 at 1202, Routine, Pain (scale 4-6) [facility] acetaminoph en (TYLENOL) tablet 650 mg 09-11 18:03: 39 Yes 650mg 650 mg, Oral, Q6HPRN, Starting on 09/11/22 at 1203, Until Discontinu ed, Routine, Pain (scale 1-3) [facility] insulin NPH and regular human 70-30 (70-30 U-100 INSULIN) 100 unit/mL (70-30) injection 60 Units 09-11 18:03: 00 09-11 18:54 :00 No 60U 60 Units, Subcutaneo us, ONCE, 1 dose, On 09/11/22 at 1215, [facility] FENTanyl PF (SUBLIMAZE (PF)) injection 50 mcg 09-11 16:38: 00 09-11 16:41 :00 No 50ug 50 mcg, Slow IV Push, ONCE, 1 dose, On 09/11/22 at 1045, [facility] iopamidol (ISOVUE 370-500 mL) injection 78 mL 09-11 16:35: 00 09-11 16:45 :00 No [id number] 78mL 78 mL, Intravenou s, ONCE, 1 dose, On 09/11/22 at 1045, [facility] ondansetron (ZOFRAN (PF)) injection 4 mg 09-11 15:45: 00 09-11 15:50 :00 No [id number] 4mg 4 mg, Slow IV Push, ONCE, 1 dose, On 09/11/22 at 0945, [facility] famotidine (PEPCID (PF)) injection 20 mg 09-11 15:45: 00 09-11 15:50 :00 No [id number] 20mg 20 mg, Slow IV Push, ONCE, 1 dose, On 09/11/22 at 0945, [facility] NaCl 0.9% (NS) IV infusion 1,000 mL 09-11 15:33: 00 09-11 17:00 :00 No [id number] 1000mL at 999 mL/hr, Intravenou s, ONCE, 1 dose, On 09/11/22 at 0945, [facility] sodium chloride (NS) injection 5 mL 09-11 15:32: 59 Yes [id number] 5mL 5 mL, Intravenou s, PRN, Starting on 09/11/22 at 0932, Until Discontinu ed, Routine, IV line flushing [facility] maalox:diph enhydrAMINE :lidocaine 2 % viscous 1:1:1 ([facility]) oral suspension 15 mL 11-08 20:45: 00 11-08 20:39 :00 No 15mL 15 mL, Oral, ONCE, 1 dose, 11[facility]08[facility]20 [facility] 1445[facility] insulin regular human (HUMULIN R) injection 9 Units 11-08 20:30: 00 11-08 19:39 :00 No 9U 9 Units, Slow IV Push, ONCE, 1 dose, 11/08/20 at 1430, STAT [facility] ondansetron (ZOFRAN (PF)) injection 4 mg 11-08 19:45: 00 11-08 18:49 :00 No 4mg 4 mg, Slow IV Push, ONCE, 1 dose, 11/08/20 at 1345, [facility] morpHINE injection 4 mg 11-08 19:45: 00 11-08 18:49 :00 No 4mg 4 mg, Slow IV Push, ONCE, 1 dose, 11/08/20 at 1345, STAT [facility] NaCl 0.9% (NS) bolus infusion 1,000 mL 11-08 19:30: 00 11-08 20:37 :00 No 1000mL at 999 mL/hr, 1,000 mL, IV Infusion, ONCE, 1 dose, 11/08/20 at 1330, [facility] NaCl 0.9% (NS) bolus infusion 1,000 mL 11-08 18:30: 00 11-08 19:39 :00 No 1000mL at 999 mL/hr, 1,000 mL, IV Infusion, ONCE, 1 dose, 11/08/20 at 1230, [facility] ondansetron (ZOFRAN ODT) 4 mg disintegrat ing tablet 11-08 00:00: 00 Yes [id number] 4mg Take 1 tablet by mouth every 8 (eight) hours as needed for Nausea and Vomiting (N/V). [facility] dicyclomine 20 mg tablet 11-08 00:00: 00 Yes [id number] 20mg Take 1 tablet by mouth 4 (four) times daily as needed for Abdominal pain. [facility] ondansetron (ZOFRAN ODT) 4 mg disintegrat ing tablet 11-08 00:00: 00 09-11 00:00 :00 No [id number] 4mg Take 1 tablet by mouth every 8 (eight) hours as needed for Nausea and Vomiting (N/V). [facility] dicyclomine 20 mg tablet 11-08 00:00: 00 09-11 00:00 :00 No [id number] 20mg Take 1 tablet by mouth 4 (four) times daily as needed for Abdominal pain. [facility] No known medications No Un brendan [facility] Vital Signs Vital Name Observation Time Observation Value Comments S ource Systolic blood pressure 2023-11-29 15:36:00 115 mm[Hg] Parvin Brunsono ld - External Diastolic blood pressure 2023-11-29 15:36:00 80 mm[Hg] Parvin michaelo ld - External Heart rate 2023-11-29 15:36:00 81 /min Kel y Boyold - External Body temperature 2023-11-29 15:36:00 36.56 Zenaida Parvin Knowles - External Respiratory rate 2023-11-29 15:36:00 15 /min Parvin Knowles - External Body height 2023-11-29 15:36:00 177.8 cm Emma gallardo Seybold - External Body weight 2023-11-29 15:36:00 97.07 kg Emma gallardo Seybold - External BMI 2023-11-29 15:36:00 30.71 kg/m2 Emma Knowles - External Oxygen saturation in Arterial blood by Pulse oximetry 2023-11-29 15:36:00 100 /min Parvin Brunsono ld - External Systolic blood pressure 2023-10-06 16:21:00 135 mm[Hg] Parvin Franco ld - External Diastolic blood pressure 2023-10-06 16:21:00 90 mm[Hg] Parvin Brunsono ld - External Heart rate 2023-10-06 15:48:00 123 /min Jennifer Knowles - External Body temperature 2023-10-06 15:48:00 36.61 [...] Systolic blood pressure 2022-09-14 17:21:00 130 mm[Hg] [facility] Diastolic blood pressure 2022-09-14 17:21:00 93 mm[Hg] [facility] Heart rate 2022-09-14 17:21:00 87 /min [facility] Body temperature 2022-09-14 17:21:00 35.56 Zenaida [facility] Respiratory rate 2022-09-14 17:21:00 18 /min [facility] Oxygen saturation in Arterial blood by Pulse oximetry 2022-09-14 17:21:00 98 /min [facility] Body weight 2022-09-14 09:02:00 98.476 kg [facility] BMI 2022-09-14 09:02:00 32.06 kg/m2 [facility] Body height 2022-09-11 19:14:00 175.3 cm [facility] Systolic blood pressure 2020-11-08 21:00:00 136 mm[Hg] [facility] Diastolic blood pressure 2020-11-08 21:00:00 95 mm[Hg] [facility] Heart rate 2020-11-08 21:00:00 93 /min [facility] Respiratory rate 2020-11-08 21:00:00 16 /min [facility] Oxygen saturation in Arterial blood by Pulse oximetry 2020-11-08 21:00:00 98 /min [place] [facility] Body temperature 2020-11-08 18:12:00 36.44 Zenaida [facility] Body height 2020-11-08 18:12:00 175.3 cm [facility] Body weight 2020-11-08 18:12:00 92.987 kg [facility] BMI 2020-11-08 18:12:00 30.27 kg/m2 [facility] Procedures Procedure Date / Time Performed Performing Clinician Source POCT GLUCOSE (AUTOMATED) 2022-09-14 17:22:00 Lazaro Hunter [facility] LIPASE 2022-09-14 11:57:[address] [facility] BASIC METABOLIC PANEL (NA, K, CL, CO2, GLUCOSE, BUN, CREATININE, CA) 2022-09-14 11:57:00 Michael Jung [facility] LIPID PANEL ([id number])(TOTAL CHOLESTEROL, TRIGLYCERIDES, HDL) 2022-09-14 11:57:00 Michael Jung [facility] CBC WITH DIFF 2022-09-14 11:57:00 [facility] PO[facility] GLUCOSE (AUTOMATED) 2022-09-14 02:35[facility]22-09[facility]13 [facility]:59[facility] 2022-09-13 17:43:00 Elsa [facility] POCT GLUCOSE (AUTOMATED) 2022-09-13 13:30:00 Elsa [facility] BASIC METABOLIC PANEL (NA, K, CL, CO2, GLUCOSE, BUN, CREATININE, CA) 2022-09-13 09:26:00 Emy Hyde [facility] POCT GLUCOSE (AUTOMATED) 2022-09-12 22:34:00 [place], [facility] POCT GLUCOSE (AUTOMATED) 2022-09-12 17:15:00 Elsa [facility] POCT GLUCOSE (AUTOMATED) 2022-09-12 13:44:00 Elsa [facility] MAGNESIUM 2022-09-12 09:07:00 Elsa [facility] HEPATIC FUNCTION PANEL ([id number]) (ALB,T.PRO,BILI T,BU/BC,ALT,AST,ALK PHOS) 2022-09-12 09:07:00 Elsa [facility] BASIC METABOLIC PANEL (NA, K, CL, CO2, GLUCOSE, BUN, CREATININE, CA) 2022-09-12 09:07:00 Emy Hyde Cris [facility] LIPID PANEL (33713)(TOTAL CHOLESTEROL, TRIGLYCERIDES, HDL) 2022-09-12 09:07:00 Elsa [facility] CBC WITH DIFF 2022-09-12 09:07:00 Emy Hyde [facility] POCT GLUCOSE (AUTOMATED) 2022-09-12 09:01:00 Esa Ko [facility] POCT GLUCOSE (AUTOMATED) 2022-09-12 02:38:00 Esa Ko [facility] POCT GLUCOSE (AUTOMATED) 2022-09-11 22:42:00 Esa Ko [facility] POCT GLUCOSE (AUTOMATED) 2022-09-11 18:57:[address] [facility] POCT GLUCOSE(AGE >30DAYS) 2022-09-11 17:22:[address] [facility] POCT GLUCOSE (AUTOMATED) 2022-09-11 17:21:[facility] 2022-09-11 16:38:00 Augustin Ignacio [facility] POCT GLUCOSE (AUTOMATED) 2022-09-11 15:59:00 Augustin Ignacio [facility] LIPASE 2022-09-11 15:48:00 Augustin Ignacio [facility] COMP. METABOLIC PANEL (49004) 2022-09-11 15:48:00 Augustin Ignacio [facility] CBC WITH DIFF 2022-09-11 15:48:00 Augustin Ignacio [facility] GLYCOSYLATED HEMOGLOBIN (A1C) 2022-09-11 15:48:00 Esa Ko [facility] URINALYSIS 2022-09-11 15:46:00 [facility] CONSENT/REFUSAL FOR DIAGNOSIS AND TREATMENT 2022-09-11 15:16:37 Doctor Unassigned, [place] [facility] POCT GLUCOSE (AUTOMATED) 2020-11-08 20:26:00 [facility] 2020-11-08 18:29:00 [facility] HEPATIC FUNCTION PANEL (79949) (ALB,T.PRO,BILI T,BU/BC,ALT,AST,ALK PHOS) 2020-11-08 18:29:00 [facility]IC METABOLIC PANEL (NA, K, CL, CO2, GLUCOSE, BUN, CREATININE, CA) 2020-11-08 18:29:00 Ramses [facility] CBC WITH DIFF 2020-11-08 18:29:[address] [facility] URINALYSIS 2020-11-08 18:29:00 [facility] NOTICE OF PRIVACY PRACTICES 2020-11-08 18:06:16 Doctor Unassigned, [place] [facility] CONSENT/REFUSAL FOR DIAGNOSIS AND TREATMENT 2020-11-08 18:06:04 Doctor Unassigned, [place] [facility] Encounters Start Date/Time End Date/Time Encounter Type Admission Type Attending Clinicians Care Facility Care Department Encounter ID Source 2021-09-30 12:34:38 Outpatient [facility] [id number] [facility] 2024-02-21 15:30:00 2024-02-21 15:30:00 Outpatient BROOKLYNN AGUILAR [id number] [facility] Knowles 2024-01-23 14:15:00 2024-01-23 14:15:00 Outpatient ROCHENANCY EstebanCHERI HERNÁNDEZ [id number] [facility] 2024-01-09 10:30:00 2024-01-09 10:30:00 Outpatient PREZAS, MICHAEL HERNÁNDEZ PARVIN [id number] [facility] 2023-12-30 15:30:00 2023-12-30 15:30:00 Outpatient PREZAS, MICHAEL PARVIN HERNÁNDEZ [id number] [facility] 2023-12-27 16:30:00 2023-12-27 16:30:00 Outpatient PARVIN PARVIN [id number] Parvin [facility] 2023-11-29 10:30:00 2023-11-29 10:30:00 Outpatient PREZAS, MICHAEL PARVIN HERNÁNDEZ [id number] Parvin [facility] 2023-11-28 14:00:00 2023-11-28 14:00:00 Outpatient GENESIS MONTGOMERY PARVIN HERNÁNDEZ [id number] [facility] 2023-11-28 00:00:00 2023-11-28 00:00:00 Outpatient PREZAS, MICHAEL PARVIN HERNÁNDEZ [id number] [facility] 2023-11-07 00:00:00 2023-11-07 00:00:00 Outpatient PREZAS, MICHAEL PARVIN HERNÁNDEZ [id number] [facility] 2023-10-27 00:00:00 2023-10-27 00:00:00 Outpatient PREZAS, MICHAEL PARVIN HERNÁNDEZ [id number] [facility] 2023-10-26 00:00:00 2023-10-26 00:00:00 Outpatient PREZAS, MICHAEL PARVIN HERNÁNDEZ [id number] [facility] 2023-10-26 00:00:00 2023-10-26 00:00:00 Outpatient PREZAS, MICHAEL HERNÁNDEZ [id number] [facility] 2023-10-19 16:45:00 2023-10-19 16:45:00 Outpatient PREZAS, MICHAELFABIOLA HERNÁNDEZ [id number] [facility] 2023-10-18 14:30:00 2023-10-18 14:30:00 Outpatient PARVIN HERNÁNDEZ [id number] Parvin Knowles 2023-10-10 00:00:00 2023-10-10 00:00:00 Outpatient MICHAEL BRAVO [id number] Parvin Knowles 2023-10-07 00:00:00 2023-10-07 00:00:00 Outpatient MICHAEL BRAVO [id number] [facility] Knowles 2023-10-06 10:45:00 2023-10-06 10:45:00 Outpatient LAB90 PARVIN HERNÁNDEZ [id number] Parvin Knowles 2023-10-06 09:30:00 2023-10-06 09:30:00 Outpatient MICHAEL BRAVO [id number] Parvin Green[facility] 2023-08-24 10:15:00 2023-08-24 10:15:00 Outpatient MICHAEL BRAVO [id number] [facility] 2022-09-15 00:00:00 2022-09-15 00:00:00 Transition of Care Nabil Almanzar PLAHEAVENLY [id number] 350.1.13.10 4.2.7.2.686 [id number] [facility] 2022-09-11 09:26:00 2022-09-14 13:00:00 Inpatient X [facility] [id number] [facility] 2022-09-11 09:26:00 2022-09-14 13:00:00 Hospital Encounter Augustin Ignacio [facility] 1.2.840.114 350.1.13.10 4.2.7.2.686 [id number] [facility] 2020-11-08 12:16:00 2020-11-08 15:38:00 Emergency Syeda Persaud [facility] 1.2.840.114 350.1.13.10 4.2.7.2.686 [id number] [facility] 2020-11-08 12:06:00 2020-11-08 12:06:00 Emergency X SYEDA PERSAUD [facility] ERT [id number] [facility] 2020-11-08 00:00:00 2020-11-08 00:00:00 Orders Only Doctor Unassigned, [place] [facility] 1.2.840.114 350.1.13.10 4.2.7.2.686 [id number] [facility] Results Test Description Test Time Test Comments Results Result Co mments Source [facility] GLUCOSE (AUTOMATED)2022-09-14 02:40:24* Test Item Value Reference Range Interpretation Comme nts POCT GLU (test code = 1187378129) 191 mg/dL 70-110 H Lab Interpretation (test cod e = 09247-1) Abnormal [facility] GLUCOSE (AUTOMATED)2022-09-13 23:13:20* Test Item Value Reference Range Interpretation Comme nts POCT GLU (test code = 2793811472) 126 mg/dL 70-110 H Lab Interpretation (test cod e = 23895-2) Abnormal [facility] GLUCOSE (AUTOMATED)2022-09-13 17:51:10* Test Item Value Reference Range Interpretation Comme nts POCT GLU (test code = 7174076528) 270 mg/dL 70-110 H Lab Interpretation (test cod e = 86494-7) Abnormal [facility] GLUCOSE (AUTOMATED)2022-09-13 14:08:01* Test Item Value Reference Range Interpretation Comme nts POCT GLU (test code = 2307887818) 177 mg/dL 70-110 H Lab Interpretation (test cod e = 21892-9) Abnormal [facility] GLUCOSE (AUTOMATED)2022-09-12 22:53:55* Test Item Value Reference Range Interpretation Comme nts POCT GLU (test code = 6154527326) 207 mg/dL 70-110 H Lab Interpretation (test cod e = 27498-9) Abnormal [facility] GLUCOSE (AUTOMATED)2022-09-12 18:09:02* Test Item Value Reference Range Interpretation Comme nts POCT GLU (test code = 4157346429) 92 mg/dL 70-110 Lab Interpretation (test cod e = 03249-5) [facility] (22113)(TOTAL CHOLESTEROL, TRIGLYCERIDES, HDL)2022-09-12 14:58:08* Test Item Value Reference Range Interpretation Comme nts CHOL (test code = 7616895602) 138 mg/dL 120-200 HDL (test code = 4433760703) 23 mg/dL See_Comment L [Automated messa [employer]] The system which generated this result transmitted reference range: >=40. The reference range was not used to interpret this result as normal/abnormal. HDLC RATIO (test code = 3692527866) See_Comment H [Automated messa [employer]] The system which generated this result transmitted reference range: <=5.0. The reference range was not used to interpret this result as normal/abnormal. TRIG (test code = 3543438387) 171 mg/dL 30-170 H LDL CHOL (test code = 23612-8) 81 mg/dL See_Comment [Automated messa [employer]] The system which generated this result transmitted reference range: <=160. The reference range was not used to interpret this result as normal/abnormal. VLDL (test code = 8051491935) 34 mg/dL 5-60 Lab Interpretation (test code = 61585-0) [facility]2022-09-12 13:54:38* Test Item Value Reference Range Interpretation Comme nts POCT GLU (test code = 7292772583) 84 mg/dL 70-110 Lab Interpretation (test cod e = 68731-7) [facility] (22528) (ALB,T.PRO,BILI T,BU/BC,ALT,AST,ALK PHOS)2022-09-12 13:03:03* Test Item Value Reference Range Interpretation Comme nts TOTAL BILI (test code = 0348954051) 1.0 mg/dL 0.1-1.1 BILI UNCON (test code = 6363605062) 0.8 mg/dL 0.1-1.1 BILI CONJ (test code = 7731674393) 0.0 mg/dL 0.0-0.3 T PROTEIN (test code = 0471653175) 6.7 g/dL 6.3-8.2 ALBUMIN (test code = 9974953234) 4.0 g/dL 3.5-5.0 ALK PHOS (test code = 3151287304) 106 U/L 34-122 ALTv (test code = 1742-6) 146 U/L 5-50 H AST(SGOT) (test code = 3335259664) 81 U/L 13-40 H Lab Interpretation (test cod e = 72235-2) [facility]normal [facility]-08 13:02:43* Test Item Value Reference Range Interpretation Comme nts MAGNESIUM (test code = 2232703249) 1.8 mg/dL 1.7-2.4 Lab Interpretation (test cod e = 83479-8) [facility] (NA, K, CL, CO2, GLUCOSE, BUN, CREATININE, CA)2022-09-12 12:10:26* Test Item Value Reference Range Interpretation Comme nts NA (test code = 9806785605) 142 mmol/L 135-145 K (test code = 4537872345) 3.1 mmol/L 3.5-5.0 L CL (test code = 9964765747) 106 mmol/L 98-108 CO2 TOTAL (test code = 9041392828) 24 mmol/L 23-31 AGAP (test code = 4453407044) 2-16 BUN (test code = 3304872618) 8 mg/dL 7-23 GLUCOSE (test code = 7634477894) 73 mg/dL 70-110 CREATININE (test code = 7568408726) 0.72 mg/dL 0.60-1.25 CALCIUM (test code = 4551730883) 8.1 mg/dL 8.6-10.6 L eGFR (test code = 1782052084) mL/min/1.73m2 RAFAEL (test code = RAFAEL) Association [...] imaging tests). Lab Interpretation (test code = 72436-4) Abnormal [facility] WITH [id number] 11:46:12* Test Item Value Reference Range Interpretation Comme nts WBC (test code = 6690-2) See_Comment [[email or web address]] The system which generated this result transmitted reference range: 4.20 - 10.70 10*3/?L. The reference range was not used to interpret this result as normal/abnormal. RBC (test code = 789-8) See_Comment [[email or web address]] The system which generated this result transmitted [...] 35.0 g/dL 31.2-35.0 RDW-SD (test code = 10012-2) 36.0 fL 38.5-51.6 L RDW-CV (test code = 788-0) 11.9 % 12.1-15.4 L PLT (test code = 777-3) See_Comment [Automated messa ge] The system which generated this result transmitted reference range: 150 - 328 10*3/?L. The reference range was not used to interpret this result as normal/abnormal. MPV (test code = 23144-2) 10.7 fL 9.8-13.0 NRBC/100 WBC (test code = 5519952626) See_Comment [Automated [employer]] The system which generated this result transmitted reference range: 0.0 - 10.0 /100 WBCs. The reference range was not used to interpret this result as normal/abnormal. NRBC x10^3 (test code = 1996831794) See_Comment [Automated messa ge] The system which generated this result transmitted reference range: 10*3/?L. The reference range was not used to interpret this result as normal/abnormal. GRAN MAT (NEUT) % (test code = 770-8) 50.2 % IMM GRAN % (test code = 1017871889) 0.40 % LYMPH % (test code = 736-9) 37.0 % MONO % (test code = 5905-5) 8.3 % EOS % (test code = 713-8) 3.6 % BASO % (test code = 706-2) 0.5 % GRAN MAT x10^3(ANC) (test code = 4681655805) 4.81 10*3/uL 1.99-6.95 IMM GRAN x10^3 (test code = 5661967919) 0.04 10*3/uL 0.00-0.06 LYMPH x10^3 (test code = 731-0) 3.56 10*3/uL 1.09-3.23 H MONO x10^3 (test code = 742-7) 0.80 10*3/uL 0.36-1.02 EOS x10^3 (test code = 711-2) 0.35 10*3/uL 0.06-0.53 BASO x10^3 (test code = 704-7) 0.05 10*3/uL 0.01-0.09 Lab Interpretation (test code = 52244-8) Abnormal [facility] GLUCOSE (AUTOMATED)2022-09-12 11:19:34* Test Item Value Reference Range Interpretation Comme nts POCT GLU (test code = 7955392769) 70 mg/dL 70-110 Lab Interpretation (test cod e = 80164-9) Normal [facility] GLUCOSE (AUTOMATED)2022-09-12 02:46:59* Test Item Value Reference Range Interpretation Comme nts POCT GLU (test code = 9284534360) 90 mg/dL 70-110 Lab Interpretation (test cod e = 06393-8) Normal [facility] GLUCOSE (AUTOMATED)2022-09-11 23:13:35* Test Item Value Reference Range Interpretation Comme nts POCT GLU (test code = 1792519102) 120 mg/dL 70-110 H Lab Interpretation (test cod e = 30334-3) Abnormal [facility] Hospital[facility]cosylated Hemoglobin (A1C)2022-09-11 20:41:39* Test Item Value Reference Range Interpretation Comme nts HGB A1C (test code = 4548-4) 10.1 % 4.0-5.7 H RAFAEL (test code = RAFAEL) Reference RangesNormal: <5.7%Prediabetes: 5.7 - 6.4%Diabetes: > 6.5% Lab Interpretation (test code = 03948-4) Abnormal [facility] GLUCOSE (AUTOMATED)2022-09-11 19:01:23* Test Item Value Reference Range Interpretation Comme nts POCT GLU (test code = 7142521546) 302 mg/dL 70-110 H Lab Interpretation (test cod e = 62733-8) Abnormal [facility] GLUCOSE (AUTOMATED)2022-09-11 19:01:23* Test Item Value Reference Range Interpretation Comme nts POCT GLU (test code = 9635517309) 277 mg/dL 70-110 H Lab Interpretation (test cod e = 64641-3) Abnormal [facility] GLUCOSE (AUTOMATED)2022-09-11 19:01:23* Test Item Value Reference Range Interpretation Comme nts POCT GLU (test code = 9308000566) 283 mg/dL 70-110 H Lab Interpretation (test cod e = 39934-7) [facility] >30DAYS)2022-09-11 17:22:00* Test Item Value Reference Range Interpretation Comme nts POCT Glu (age>30days) (test code = 3342) 277 mg/dL 70-110 A Lab Interpretation (test cod e = 48622-0) Abnormal [facility] Hospital[facility] Metabolic Uenhq8613-70-26 16:11:48* Test Item Value Reference Range Interpretation Comme nts NA (test code = 6001108414) 137 mmol/L 135-145 K (test code = 6004698113) 4.5 mmol/L 3.5-5.0 CL (test code = 7547861287) 102 mmol/L 98-108 CO2 TOTAL (test code = 0770475175) 22 mmol/L 23-31 L AGAP (test code = 8197221001) 2-16 BUN (test code = 9125519831) 15 mg/dL 7-23 GLUCOSE (test code = 8455409858) 318 mg/dL 70-110 H CREATININE (test code = 7374468495) 0.76 mg/dL 0.60-1.25 TOTAL BILI (test code = 3637011147) 1.5 mg/dL 0.1-1.1 H CALCIUM (test code = 7411830171) 9.1 mg/dL 8.6-10.6 T PROTEIN (test code = 9567558601) 7.7 g/dL 6.3-8.2 ALBUMIN (test code = 0229545443) 5.0 g/dL 3.5-5.0 ALK PHOS (test code = 6012415868) 124 U/L 34-122 H ALTv (test code = 1742-6) 173 U/L 5-50 H AST(SGOT) (test code = 8980695695) 76 U/L 13-40 H eGFR (test code = 1575280201) mL/min/1.73m2 RAFAEL (test code = RAFAEL) Association [...] imaging tests). Lab Interpretation (test code = 04214-8) Abnormal [facility] HospitalLip[facility], Gorqf7466-35-72 16:11:22* Test Item Value Reference Range Interpretation Comme nts LIPASE (test code = 7785054379) 22 U/L 0-220 Lab Interpretation (test cod e = 89272-3) Normal [facility] HospitalCB with Aykngeiimcil1245-03-16 15:57:05* Test Item Value Reference Range Interpretation Comme nts WBC (test code = 6690-2) See_Comment H [Automated [employer]] The system which generated this result transmitted reference range: 4.20 - 10.70 10*3/?L. The reference range was not used to interpret this result as normal/abnormal. RBC (test code = 789-8) See_Comment [Automated [employer]] The system which generated this result transmitted [...] g/dL 31.2-35.0 H RDW-SD (test code = 19780-4) 35.5 fL 38.5-51.6 L RDW-CV (test code = 788-0) 11.8 % 12.1-15.4 L PLT (test code = 777-3) See_Comment [Automated messa ge] The system which generated this result transmitted reference range: 150 - 328 10*3/?L. The reference range was not used to interpret this result as normal/abnormal. MPV (test code = 69052-5) 10.3 fL 9.8-13.0 NRBC/100 WBC (test code = 7721533288) See_Comment [Automated [employer]] The system which generated this result transmitted reference range: 0.0 - 10.0 /100 WBCs. The reference range was not used to interpret this result as normal/abnormal. NRBC x10^3 (test code = 0558035762) See_Comment [Automated messa ge] The system which generated this result transmitted reference range: 10*3/?L. The reference range was not used to interpret this result as normal/abnormal. GRAN MAT (NEUT) % (test code = 770-8) 64.6 % IMM GRAN % (test code = 0020575455) 0.50 % LYMPH % (test code = 736-9) 25.3 % MONO % (test code = 5905-5) 7.3 % EOS % (test code = 713-8) 1.9 % BASO % (test code = 706-2) 0.4 % GRAN MAT x10^3(ANC) (test code = 9906989458) 7.62 10*3/uL 1.99-6.95 H IMM GRAN x10^3 (test code = 9989397921) 0.06 10*3/uL 0.00-0.06 LYMPH x10^3 (test code = 731-0) 2.98 10*3/uL 1.09-3.23 MONO x10^3 (test code = 742-7) 0.86 10*3/uL 0.36-1.02 EOS x10^3 (test code = 711-2) 0.22 10*3/uL 0.06-0.53 BASO x10^3 (test code = 704-7) 0.05 10*3/uL 0.01-0.09 Lab Interpretation (test code = 27141-0) Abnormal [facility] ([facility])2020-11-08 20:30:00* Test Item Value Reference Range Interpretation Comme [facility] POCT GLU (test code = 8347247897) 181 mg/dL 70-110 H Lab Interpretation (test cod e = 08828-6) Abnormal [facility] Metabolic Panel (NA, K, CL, CO2, GLUCOSE, BUN, CREATININE, CA)2020-11-08 18:48:00* Test Item Value Reference Range Interpretation Comme [facility] NA (test code = 1891028720) 134 mmol/L 135-145 L K (test code = 3253798750) 4.0 mmol/L 3.5-5 CL (test code = 1342464961) 96 mmol/L 98-108 L CO2 TOTAL (test code = 9952952824) 29 mmol/L 23-31 AGAP (test code = 8363327896) 2-16 BUN (test code = 6939081368) 10 mg/dL 7-23 GLUCOSE (test code = 9502219485) 368 mg/dL 70-110 H CREATININE (test code = 3193697746) 0.58 mg/dL 0.6-1.25 L CALCIUM (test code = 5452656832) 9.1 mg/dL 8.6-10.6 eGFR Calculation (Non-) (test code = 6224239373) mL/min/1.73m2 eGFR Calculation () (test code = 6349075312) mL/min/1.73m2 RAFAEL (test code = RAFAEL) Association [...] imaging tests). Lab Interpretation (test code = 38286-3) Abnormal [facility] Hospital[facility] Function Panel (ALB, T.PRO, BILI T, BU/BC, ALT, AST, ALK PHOS)2020-11-08 18:48:00* Test Item Value Reference Range Interpretation Comme nts TOTAL BILI (test code = 0088220234) 0.8 mg/dL 0.1-1.1 BILI UNCON (test code = 6586993368) 0.8 mg/dL 0.1-1.1 BILI CONJ (test code = 1868546698) 0.0 mg/dL 0-0.3 T PROTEIN (test code = 2593083089) 7.8 g/dL 6.3-8.2 ALBUMIN (test code = 8662792751) 4.7 g/dL 3.5-5 ALK PHOS (test code = 0196945495) 147 U/L 34-122 H ALTv (test code = 1742-6) 48 U/L 5-50 AST(SGOT) (test code = 8416977677) 42 U/L 13-40 H Lab Interpretation (test cod e = 97454-8) Abnormal [facility] HospitalLipase Wgjhw9894-24-23 18:48:00* Test Item Value Reference Range Interpretation Comme nts LIPASE (test code = 7108599357) 27 U/L 0-220 Lab Interpretation (test cod e = 92841-5) Normal [facility] HospitalUrinalysis2021-03-06 18:39:00* Test Item Value Reference Range Interpretation Comme nts APPEARANCE (test code = 6408761786) Clear Clear COLOR (test code = 7048059283) Yellow Yellow PH (test code = 9669626629) 4.8-8.0 SP GRAVITY (test code = 8561832602) 1.003-1.030 H GLU U QUAL (test code = 8439647155) 500 mg/dL Normal A BLOOD (test code = 8300464429) Negative Negative KETONES (test code = 6044553677) 5 mg/dL Negative A PROTEIN (test code = 2887-8) Negative Negative UROBILIN (test code = 4304495632) Normal Normal BILIRUBIN (test code = 9417822795) Negative Negative NITRITE (test code = 5645426817) Negative Negative LEUK ALYSHA (test code = 7603402884) Negative Negative RBC/HPF (test code = 8478959604) See_Comment [Automated messa ge] The system which generated this result transmitted reference range: 0 - 3 HPF. The reference range was not used to interpret this result as normal/abnormal. WBC/HPF (test code = 1842526079) See_Comment [Automated messa ge] The system which generated this result transmitted reference range: 0 - 5 HPF. The reference range was not used to interpret this result as normal/abnormal. BACTERIA (test code = 0105278592) Negative Negative Lab Interpretation (test code = 06443-5) Abnormal [facility] with Qkyitdzpavda4403-40-46 18:36:00* Test Item Value Reference Range Interpretation [...] g/dL 31.2-35 H RDW-SD (test code = 39375-3) 33.7 fL 38.5-51.6 L RDW-CV (test code = 788-0) 11.5 % 12.1-15.4 L PLT (test code = 777-3) See_Comment H [Automated messa ge] The system which generated this result transmitted reference range: 150 - 328 10*3/?L. The reference range was not used to interpret this result as normal/abnormal. MPV (test code = 73905-5) 10.2 fL 9.8-13 NRBC/100 WBC (test code = 3229012399) See_Comment [Automated [employer]] The system which generated this result transmitted reference range: 0.0 - 10.0 /100 WBCs. The reference range was not used to interpret this result as normal/abnormal. NRBC x10^3 (test code = 8373015008) <0.01 See_Comment [Automated messa ge] The system which generated this result transmitted reference range: 10*3/?L. The reference range was not used to interpret this result as normal/abnormal. GRAN MAT (NEUT) % (test code = 770-8) 60.3 % IMM GRAN % (test code = 0699457312) 0.70 % LYMPH % (test code = 736-9) 29.2 % MONO % (test code = 5905-5) 4.7 % EOS % (test code = 713-8) 3.9 % BASO % (test code = 706-2) 1.2 % GRAN MAT x10^3(ANC) (test code = 9662953465) 6.44 10*3/uL 1.99-6.95 IMM GRAN x10^3 (test code = 0177675893) 0.07 10*3/uL 0-0.06 H LYMPH x10^3 (test code = 731-0) 3.12 10*3/uL 1.09-3.23 MONO x10^3 (test code = 742-7) 0.50 10*3/uL 0.36-1.02 EOS x10^3 (test code = 711-2) 0.42 10*3/uL 0.06-0.53 BASO x10^3 (test code = 704-7) 0.13 10*3/uL 0.01-0.09 H Lab Interpretation (test code = 51488-8) Abnormal [facility]"
[2023-12-05] MEDS ORDERED: ONDANSETRON 4 MG/2 ML VIAL ONE (10:18)
[2023-12-05] MEDS ORDERED: MORPHINE 4 MG/ML SYR ONE (10:18)
[2023-12-05] MEDS ORDERED: NA CHLORIDE 0.9% 1,000 ML ONE ×2 (10:18→11:46)
--- NOTE | 2023-12-05 10:41 | RAD REPORT ---
EXAM DESCRIPTION: CTAbdomen Pelvis W Contrast - 12/05/2023 10:32 am CLINICAL HISTORY: ABD PAIN COMPARISON: Abdomen Pelvis W Contrast dated 04/22/2023; Abdomen Pelvis W Contrast dated 12/16/2022 ; Abdomen Pelvis W Contrast dated 06/25/2022; Abdomen Pelvis W Contrast dated 02/06/2022; CT ABD PE LVIS W CONTRAST dated 06/11/2015 TECHNIQUE: CT of the abdomen and pelvis was performed. All CT scans are performed using dose optimization technique as appropriate and may include automated exposure control or mA/KV adjustment according to patient size. FINDINGS: Lower chest: Circumferentially thickened distal esophagus likely reflecting esophagitis. Liver: Hepatic steatosis Biliary: Cholecystectomy. Mild extrahepatic biliary duct dilatation is likely related to the postchol ecystectomy state. Stomach: No significant focal abnormality. Duodenum: No significant focal abnormality. Pancreas: Pancreatic atrophy and calcifications consistent with sequela of chronic pancreatitis. Spleen: No significant abnormality. Adrenal: No suspicious lesions. Kidney/ureter: No hydronephrosis. No renal calculi. Retroperitoneum: No retroperitoneal adenopathy. Vascular: No aneurysm. Bowel: No significant focal abnormality. Normal appendix . Peritoneum: No ascites or free air. Bladder: Grossly unremarkable. Reproductive: No adnexal masses. Bones: No acute fracture. Other: n/a IMPRESSION: No acute intra-abdominal or pelvic finding. Sequela of chronic pancreatitis. No evidence of acute pancreatitis.
[2023-12-05 10:50] LABS: Albumin 4.1 g/dL (3.4-5.0); Anion Gap 12.3 mEq/L (5.0-15.0); Bilirubin Total 1.5 mg/dL (0.2-1.0); Globulin 4.2 g/dL (2.3-3.5); Potassium 3.3 mEq/L (3.5-5.1); Protein, Total 8.3 g/dL (6.4-8.2)
[2023-12-05 11:00] LABS: Absolute Basophils 0.1 K/uL (0-0.5); Absolute Eosinophils 0.1 K/uL (0-0.5); Absolute Lymphocytes (CBC) 2.5 K/uL (0.7-4.9); Absolute Monocytes 0.6 K/uL (0.1-1.3); Absolute Neutrophil 5.7 K/uL (1.8-8.0); Basophils % 1.1 % (0-1.3); Eosinophils % 1.6 % (0-4.4); Hematocrit 45.2 % (39.6-49.0); Hemoglobin 15.7 g/dL (13.6-17.9); Lymphocytes % 27.4 % (15.3-44.8); MCH 29.4 pg (27.0-35.0); MCHC 34.7 g/dL (32.0-36.0); MCV 84.5 fL (80-100); MPV 9.3 fL (7.6-11.3); Neutrophils % 62.9 % (41.7-73.7); Platelets 323 thou/uL (152-406); RBC Red Blood Cell Count 5.35 M/uL (4.33-5.43); Red Cell Distribution Width 13.1 % (12.1-15.2)
[2023-12-05 11:29] LABS: Specific Gravity > 1.030 (1.005-1.030); Sqamous Epithelial None Seen /HPF (None Seen); Urine Bacteria None Seen /HPF (<20); Urine Bilirubin NEGATIVE (Negative); Urine Blood Negative (Negative); Urine Clarity Turbid (Clear); Urine Color Yellow (Yellow); Urine Culture Reflex Order NOT NEEDED; Urine Glucose 3+ (Negative); Urine Ketones TRACE (Negative); Urine Microscopic Reflex YN ORDER UMIC; Urine Mucus 2+ /HPF (None Seen); Urine Nitrite NEGATIVE (Negative); Urine Protein 1+ (Negative); Urine RBC <5 /HPF (None Seen); Urine Urobilinogen Normal (Normal); Urine WBC <5 /HPF (<5)
--- NOTE | 2023-12-05 11:30 | RAD REPORT ---
EXAM DESCRIPTION: US - Abdomen Exam Limited - 12/05/2023 11:20 am CLINICAL HISTORY: bile duct, pancreas;Abd pain COMPARISON: No comparisons FINDINGS: Cholecystectomy. Common bile duct measures 4 millimeters which is within normal limits. Pa ncreas is obscured by bowel gas. IMPRESSION: Pancreas obscured by bowel gas. Common bile duct measures 4 millimeters which is within normal limits. Cholecystectomy.
[2023-12-05] MEDS ORDERED: KETOROLAC 30 MG/ML INJ ONE (11:45)
[2023-12-05] MEDS ORDERED: FAMOTIDINE 20 MG/2 ML VIAL IV ONE (11:46)
[2023-12-05] MEDS ORDERED: FENTANYL CITR 100 MCG/2 ML ONE (11:46)
--- NOTE | 2023-12-05 12:25 | ER ---
Nurse's Notes [facility] Name: Jimenez Patrick Age: 28 yrs Sex: Male : 1995 Arrival Date: 12/05/2023 Time: 09:52 Bed 4 Private MD: Farzad Rahman Diagnosis: Esophagitis, unspecified;Other chronic pancreatitis Presentation: 12/04 09:57 Method Of Arrival: Ambulatory db 10:00 Chief complaint: Patient states: ABD PAIN HX PANCREATITIS. Coronavirus screen: Client db denies travel out of the [place] in the last 14 days. At this time, the client does not indicate any symptoms associated with coronavirus-19. 10:00 Ebola Screen: Patient negative for fever greater than or equal to 101.5 degrees db Fahrenheit, and additional compatible Ebola Virus Disease symptoms Patient denies exposure to infectious person. Patient denies travel to an Ebola-affected area in the 21 days before illness onset. No symptoms or risks identified at this time. Initial Sepsis Screen: Does the patient meet any 2 criteria? No. Patient's initial sepsis screen is negative. Does the patient have a suspected source of infection? No. Patient's initial sepsis screen is negative. Risk Assessment: Do you want to hurt yourself or someone else? Patient reports no desire to harm self or others. Onset of symptoms was December 05, 2023. 10:00 Acuity: MOSES 3 db 10:00 Chief complaint: Patient states: Abdominal pain with nausea for 3 hours. + diaphoresis. ll1 Triage Assessment: 10:00 General: Appears in no apparent distress. uncomfortable, Behavior is calm, cooperative. db Pain: Complains of pain in abdomen. Neuro: Level of Consciousness is awake, alert, obeys commands, Oriented to person, place, time, situation. Respiratory: Airway is patent Respiratory effort is even, unlabored, Respiratory pattern is regular, symmetrical. GI: Abdomen is flat, non-distended, Reports upper abdominal pain, nausea. Historical: - Allergies: :57 NKA; ll1 - PMHx: :57 Diabetes - IDDM; Chronic Pancreatitis; Hypertensive disorder; ll1 - PSHx: :57 Cholecystectomy; I\T\D; stents x 2 in pancreas; ll1 - Immunization history:: Adult Immunizations up to date. - Infectious Disease History:: Denies. - Social history:: Smoking status: unknown. Screenin:34 [facility] ED Fall Risk Assessment (Adult) History of falling in the last 3 months, db including since admission No falls in past 3 months (0 pts) Confusion or Disorientation No (0 pts) Intoxicated or Sedated No (0 pts) Impaired Gait No (0 pts) Mobility Assist Device Used No (0 pt) Altered Elimination No (0 pt) Score/Fall Risk Level 0 - 2 = Low Risk Oriented to surroundings, Maintained a safe environment. Abuse screen: Denies threats or abuse. Denies injuries from another. Nutritional screening: No deficits noted. Tuberculosis screening: No symptoms or risk factors identified. Assessment: 10:20 Reassessment: Patient appears in no apparent distress at this time. Patient and/or db family updated on plan of care and expected duration. Pain level reassessed. Patient is alert, oriented x 3, equal unlabored respirations, skin warm/dry/pink. General: Appears in no apparent distress. comfortable, Behavior is calm, cooperative. Pain: Complains of pain in abdomen. Neuro: Level of Consciousness is awake, alert, obeys commands, Oriented to person, place, time, situation. Respiratory: Airway is patent Respiratory effort is even, unlabored, Respiratory pattern is regular, symmetrical. GI: Abdomen is flat, non-distended, Bowel sounds Abd is soft. 10:38 Reassessment: PATIENT AMBULATORY TO RESTROOM. db 11:50 Pain: Pain currently is 6 out of 10 on a pain scale. db 12:05 Reassessment: Patient appears in no apparent distress at this time. Patient and/or db family updated on plan of care and expected duration. Pain level reassessed. Patient is alert, oriented x 3, equal unlabored respirations, skin warm/dry/pink. 12:45 Reassessment: DC PENDING IV FLUIDS. db 12:59 Reassessment: No changes from previously documented assessment. Patient and/or family ll1 updated on plan of care and expected duration. Pain level reassessed. Patient is alert, oriented x 3, equal unlabored respirations, skin warm/dry/pink. Vital Signs: 10:00 BP 133 / 88; Pulse 131; Resp 18; Temp 97.3; Pulse Ox 97% on R/A; Weight 95.25 kg; ll1 Height 5 ft. 9 in. ; Pain 8/10; 10:53 BP 119 / 78; Pulse 101; Resp 18; Pulse Ox 100% on R/A; db 11:30 BP 118 / 79; Pulse 83; Resp 18; Pulse Ox 100% on R/A; Pain 8/10; db 12:41 BP 134 / 94; Pulse 88; Resp 15; Pulse Ox 99% ; ko1 13:34 BP 140 / 95; Pulse 85; Resp 15; Pulse Ox 99% ; ko1 10:00 Body Mass Index 31.01 (95.25 kg, 175.26 cm) ll1 10:00 Pain Scale: Adult ll1 11:30 Pain Scale: Adult db ED Course: 09:53 Patient arrived in ED. rg4 09:54 Farzad Rahman DO is Private Physician. rg4 09:54 Allie Chance PA-C is PHCP. sb4 09:54 Justin Sommer DO is Attending Physician. sb4 09:58 Arm band placed on. ll1 10:20 Patient placed in an exam room. db 10:29 Annmarie Campbell, RN is Primary Nurse. db 10:[address] db 10:30 Initial lab(s) drawn, by me, sent to lab. Inserted saline lock: 22 gauge in left db antecubital area, using aseptic technique. Blood collected. 10:33 CT Abd/Pelvis - IV Contrast Only In Process Unspecified. EDMS 10:34 No provider procedures requiring assistance completed. db 10:36 Triage completed. db 11:21 Abdomen Limited US In Process Unspecified. EDMS 11:55 Patient moved back from ultrasound. db 12:05 Patient has correct armband on for positive identification. Bed in low position. Call db light in reach. Side rails up X 1. Provided Education on: LABS AND PAIN MEDICATION. Pulse ox on. NIBP on. 12:25 Farzad Rahman DO is Referral Physician. sb4 13:34 IV discontinued, intact, bleeding controlled, No redness/swelling at site. Pressure ko1 dressing applied. Administered Medications: 10:25 Drug: NS 0.9% IV 1000 ml IV at 1 bolus Per protocol; 1000 mL bolus Route: IV; Rate: 1 db bolus; Site: left antecubital; 12:59 Follow up: Response: No adverse reaction; IV Status: Completed infusion; IV Intake: ll1 1000ml 10:25 Drug: Ondansetron IVP 4 mg IVP once; over 2 minutes Route: IVP; Site: left antecubital; db 12:05 Follow up: Response: No adverse reaction db 10:25 Drug: morphine IVP or IV 4 mg IVP once over 4 mins Route: IVP; Infused Over: 4 mins; db Site: left antecubital; 12:05 Follow up: Response: No adverse reaction db 11:54 Drug: NS 0.9% IV 1000 ml IV at 1 bolus Per protocol; 1000 mL bolus Route: IV; Rate: 1 db bolus; Site: left antecubital; 13:35 Follow up: Response: No adverse reaction; IV Status: Completed infusion; IV Intake: ko1 1000ml 11:55 Drug: Ketorolac IVP 30 mg IVP once Route: IVP; Site: left antecubital; db 12:59 Follow up: Response: No adverse reaction; Pain is decreased; RASS: Alert and Calm (0) ll1 11:55 Drug: fentaNYL (PF) IVP 50 mcg IVP once Route: IVP; Site: left antecubital; db 12:59 Follow up: Response: No adverse reaction; Pain is decreased; RASS: Alert and Calm (0) ll1 12:04 Drug: Famotidine IVP 20 mg IVP once; dilute with 10 mL 0.9% NaCl; give over 2 minutes db Route: IVP; Site: left antecubital; 12:59 Follow up: Response: No adverse reaction ll1 Medication: 12:05 VIS not applicable for this client. db Intake: 12:59 IV: 1000ml; Total: 1000ml. ll1 13:35 IV: 1000ml; Total: 2000ml. ko1 Outcome: 12:25 Discharge ordered by . sb4 13:35 Discharged to home ambulatory, with family, ko1 13:35 Condition: improved 13:35 Discharge instructions given to patient, family, Instructed on discharge instructions, follow up and referral plans. medication usage, Demonstrated understanding of instructions, follow-up care, medications, Prescriptions given X 2, 13:36 Patient left the ED. ko1 Signatures: Dispatcher [employer] EDMS Nilda Jordan rg4 Ramiro Gregory RN RN ll1 Dominique Huitron RN RN ko1 Annmarie Campbell RN RN db Allie Chance, PA-C PA-C sb4
--- NOTE | 2023-12-05 12:25 | EDPHYS ---
Physician Documentation [facility] Name: Jimenez Patrick Age: 28 yrs Sex: Male : 1995 Arrival Date: 12/05/2023 Time: 09:52 Bed 4 Private MD: Farzad Rahman ED Physician Justin Sommer HPI: 12/04 10:14 This 28 yrs old Male presents to ER via Unassigned with complaints of sb4 Abdominal Pain. 10:14 Patient complains of epigastric abdominal pain that started this morning. He states sb4 that it feels similar to his prior pancreatitis episodes. He denies any vomiting but does endorse nausea. Noted to be diaphoretic and tachycardic in triage. Historical: - Allergies: 09:57 NKA; ll1 - PMHx: 09:57 Diabetes - IDDM; Chronic Pancreatitis; Hypertensive disorder; ll1 - PSHx: 09:57 Cholecystectomy; I\T\D; stents x 2 in pancreas; ll1 - Immunization history:: Adult Immunizations up to date. - Infectious Disease History:: Denies. - Social history:: Smoking status: unknown. ROS: 10:14 Constitutional: Negative for fever, chills, and weight loss, sb4 10:14 Abdomen/GI: Positive for abdominal pain, nausea, 10:14 All other systems are negative, Exam: 10:14 Head/Face: Normocephalic, atraumatic. Eyes: Extra-ocular motions intact. Periorbital sb4 areas with no swelling, redness, or edema. ENT: Mucous membranes moist. Respiratory: Lungs have equal breath sounds bilaterally, clear to auscultation and percussion. No rales, rhonchi or wheezes noted. No increased work of breathing, no retractions or nasal flaring. Skin: Warm, dry with normal turgor. Normal color with no rashes, no lesions, and no evidence of cellulitis. MS/ Extremity: Pulses equal, no cyanosis. Neurovascular intact. Full, normal range of motion. Neuro: Awake and alert, GCS 15, oriented to person, place, time, and situation. Motor strength 5/5 in all extremities. Sensory grossly intact. 10:14 Constitutional: The patient appears alert, awake, diaphoretic, uncomfortable, 10:14 Cardiovascular: Rate: tachycardic, Rhythm: regular, 10:14 Abdomen/GI: Inspection: abdomen appears normal, Bowel sounds: normal, Palpation: soft, mild abdominal tenderness, in the epigastric area, Vital Signs: 10:00 BP 133 / 88; Pulse 131; Resp 18; Temp 97.3; Pulse Ox 97% on R/A; Weight 95.25 kg; ll1 Height 5 ft. 9 in. ; Pain 8/10; 10:53 BP 119 / 78; Pulse 101; Resp 18; Pulse Ox 100% on R/A; db 11:30 BP 118 / 79; Pulse 83; Resp 18; Pulse Ox 100% on R/A; Pain 8/10; db 12:41 BP 134 / 94; Pulse 88; Resp 15; Pulse Ox 99% ; ko1 13:34 BP 140 / 95; Pulse 85; Resp 15; Pulse Ox 99% ; ko1 10:00 Body Mass Index 31.01 (95.25 kg, 175.26 cm) ll1 10:00 Pain Scale: Adult ll1 11:30 Pain Scale: Adult db MDM: 10:02 Patient medically screened. sb4 10:14 Differential diagnosis: cholecystitis, Cholelithiasis, gastritis, non-specific abd sb4 pain, pancreatitis, Peptic Ulcer Disease. 12:23 Data reviewed: vital signs, nurses notes, lab test result(s), radiologic studies, I sb4 have discussed the patient's presentation/case with the attending Emergency Department Physician; and as a result, I will discharge patient. Consideration of Admission/Observation Escalation of care including admission/observation considered. Counseling: I had a detailed discussion with the patient and/or guardian regarding the historical points, exam findings, and any diagnostic results supporting the discharge/admit diagnosis, lab results, radiology results, the need for outpatient follow up, for definitive care, to return to the emergency department if symptoms worsen or persist or if there are any questions or concerns that arise at home. ED course: discussed with patient that his kidney function and liver function were slightly changed from prior visits but that the hydration will help and to follow up to have labs rechecked in 2 weeks. he understands. 12/04 10:10 Order name: CBC with Diff; Complete Time: 11:01 sb4 12/04 10:10 Order name: CMP; Complete Time: 10:52 sb4 12/04 10:10 Order name: Lipase; Complete Time: 10:52 4 12/04 10:10 Order name: Urinalysis w/ reflexes; Complete Time: 11:30 sb4 12/04 10:10 Order name: CT Abd/Pelvis - IV Contrast Only; Complete Time: 10:44 sb4 12/04 10:55 Order name: Abdomen Limited US; Complete Time: 11:30 sb4 12/04 10:10 Order name: IV Saline Lock; Complete Time: 10:30 sb4 12/04 10:10 Order name: Labs collected and sent; Complete Time: 10:30 sb4 Administered Medications: 10:25 Drug: NS 0.9% IV 1000 ml IV at 1 bolus Per protocol; 1000 mL bolus Route: IV; Rate: 1 db bolus; Site: left antecubital; 12:59 Follow up: Response: No adverse reaction; IV Status: Completed infusion; IV Intake: ll1 1000ml 10:25 Drug: Ondansetron IVP 4 mg IVP once; over 2 minutes Route: IVP; Site: left antecubital; db 12:05 Follow up: Response: No adverse reaction db 10:25 Drug: morphine IVP or IV 4 mg IVP once over 4 mins Route: IVP; Infused Over: 4 mins; db Site: left antecubital; 12:05 Follow up: Response: No adverse reaction db 11:54 Drug: NS 0.9% IV 1000 ml IV at 1 bolus Per protocol; 1000 mL bolus Route: IV; Rate: 1 db bolus; Site: left antecubital; 13:35 Follow up: Response: No adverse reaction; IV Status: Completed infusion; IV Intake: ko1 1000ml 11:55 Drug: Ketorolac IVP 30 mg IVP once Route: IVP; Site: left antecubital; db 12:59 Follow up: Response: No adverse reaction; Pain is decreased; RASS: Alert and Calm (0) ll1 11:55 Drug: fentaNYL (PF) IVP 50 mcg IVP once Route: IVP; Site: left antecubital; db 12:59 Follow up: Response: No adverse reaction; Pain is decreased; RASS: Alert and Calm (0) ll1 12:04 Drug: Famotidine IVP 20 mg IVP once; dilute with 10 mL 0.9% NaCl; give over 2 minutes db Route: IVP; Site: left antecubital; 12:59 Follow up: Response: No adverse reaction ll1 Disposition: 15:12 I was immediately available on-site in the Emergency Department for consultation in the ms3 care of the patient. Disposition Summary: 12/05/23 12:25 Discharge Ordered Notes: Location: Home sb4 Problem: new sb4 Symptoms: have improved sb4 Condition: Stable sb4 Diagnosis - Esophagitis, unspecified sb4 - Other chronic pancreatitis sb4 Followup: sb4 - With: Farzad Rahman DO - When: 1 week - Reason: Recheck today's complaints, Re-evaluation by your physician Discharge Instructions: - Discharge Summary Sheet sb4 - Esophagitis sb4 - Chronic Pancreatitis sb4 Forms: - Thank You Letter sb4 - Patient Portal Instructions sb4 - Leadership Thank You Letter sb4 Prescriptions: - Zofran 4 mg Oral Tablet - take 1 tablet ORAL route every 12 hours As needed; 20 tablet; Refills: 0, sb4 Product Selection Permitted - Pepcid 20 mg Oral Tablet - take 1 tablet ORAL route once daily; 20 tablet; Refills: 0, Product Selection sb4 Permitted Signatures: Dispatcher [employer] EDMS Ramiro Gregory RN RN ll1 Justin Sommer DO DO ms3 Annmarie Campbell RN RN Allie Paredes PAJohn PAJohn sb4 Dominique Huitron RN ko1 Corrections: (The following items were deleted from the chart) 10:11 10:11 Abdomen Pelvis W Con+CT.RAD.[id number] ordered. EDMS EDMS
[2023-12-05 19:07] VITALS: BP 140/95; TEMP 97.3; O2SAT 99
== END 2023-12-05 13:36 | disposition home or self-care (01) ==
LOC: ER 09:52
DX: K86.1 Other chronic pancreatitis (principal); K20.90 Esophagitis, unspecified without bleeding; Z96.89 Presence of other specified functional implants
CPT/HCPCS: 96361; 85025; 81001; 36415; 83690; 80053; 74177; 76705; 96375; 96374; 99285; Q9967; J3010; J2405; J7030 ×2

== ENCOUNTER 2023-12-09 10:01 | Emergency (ER) | payer OTHER ==
--- OUTSIDE RECORDS SUMMARY | 2023-12-09 10:06 | XMS REPORT | Continuity of Care Document ---
Author Name Unknown Address [address] [facility]. [address] [place] [address] [facility] Address [address] [facility] [address] [place] [address] Care Team Providers Care Registration Clerk Name Role Phone PCP, PATIENT DOES NOT HAVE A Primary Care Physic adry Unavailable BROOKLYNN AGUILAR Attending Clinician Unavailable NANCY WEST Attending Clinician UnavailMICHAEL Nogueira Attending Clinician Unavailable GENESIS MONTGOMERY Attending Clinician Unavailab le LAB90 Attending Clinician Unavailable Jenelle REYES, Nabil Basurto Attending Clinician Unavail able LAZARO HUNTER Attending Clinician Unavailable Augustin Kincaid Attending Clinician [phone] Esa Ko DO Attending Clinician [phone] Lazaro Hunter MD Attending Clinician [phone] Syeda Alberts Attending Clinician [phone] SYEDA PERSAUD Attending Clinician Unavailable Doctor Unassigned, [place] Attending Clinician U LAZARO Jolly Admitting Clinician Unavailable Lazaro Hunter MD Admitting Clinician [phone] Payers Payer Name Policy Type Policy Number Effective Date Expirati on Date Source [employer] MP [facility] 5 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 ON 9 [id number] 2023 00:00:00 Problems Condition Name Condition Details Condition Category Status Onset Date Resolution Date Last Treatment Date Treating Clinician Comments Source Current moderate episode of major depressive disorder Current moderate episode of major depressive disorder Disease Active 3-26 00:00: 00 Parvin Brunsonold - Externa l [...] HCC) Disease Active 10-06 00:00: 00 Parvin Semichaelold - Externa l HTN (hypertens ion) HTN (hypertens ion) Disease Active 10-06 00:00: 00 Parvin Brunsonold - Externa l Elevated liver function tests Elevated liver function tests Disease Active 10-06 00:00: 00 Parvin Semichaelold - Externa l Acute on chronic pancreatit is Acute on chronic pancreatit is Disease Active 09-12 00:00: 00 [facility] acute hospital Epigastric pain Epigastric pain Disease Active 09-11 00:00: 00 General acute hospital Obesity (BMI 30-39.9) Obesity (BMI 30-39.9) Disease Active 04-16 00:00: 00 [facility] acute hospital Mesenteric adenitis Mesenteric adenitis Disease Active 2009-09 00:00: 00 General acute hospital Pancreatit is Pancreatit is Disease Active 2009-09 00:00: 00 [facility] acute hospital Abdominal pain Abdominal pain Disease Active 2009-09 00:00: 00 [facility] acute hospital Other acne Other acne Disease Active 04-13 00:00: 00 [facility] acute hospital Viral warts Viral warts Disease Active 04-13 00:00: 00 Overview: Formattin g of this note might be different from the original. 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 General acute hospital Allergies, Adverse Reactions, Alerts Allergy Name Allergy Type Status Severity Reaction(s) Onset Date Inactive Date Treating Clinician Comments Source NO KNOWN ALLERGIE S Drug Class [facility] Social History Social Habit Start Date Stop Date Quantity Comments Source History SDOH Social Connections [facility] History SDOH Social Connections [facility] History SDOH Social Conne[facility] History SDOH Social Connections [facility] Sexual orientation Nicolasa Knowles - External [...] Activity MPS 2022-09-13 00:00:00 2022-09-13 00:00:00 [facility] History SDOH Financial 2022-09-13 00:00:00 2022-09-13 00:00:00 [facility] History SDOH Food Worry 2022-09-13 00:00:00 2022-09-13 00:00:00 [facility] SDOH Food Scarcity 2022-09-13 00:00:00 2022-09-13 00:00:00 [facility] History SDOH Transport Med 2022-09-13 00:00:00 2022-09-13 00:00:00 [facility] History SDOH Transport Non-Med 2022-09-13 00:00:00 2022-09-13 00:00:00 [facility] SDOH Alcohol Frequency 2022-09-13 00:00:00 2022-09-13 00:00:00 [facility] SDOH Alcohol Std Drinks 2022-09-13 00:00:00 2022-09-13 00:00:00 [facility] History SDOH Alcohol Binge 2022-09-13 00:00:00 2022-09-13 00:00:00 [facility] History SDOH Social Connections Phone 2022-09-13 00:00:00 2022-09-13 00:00:00 [facility] History SDOH Social Connections Living 2022-09-13 00:00:00 2022-09-13 00:00:00 [facility] History SDOH Physical Activity DPW 2022-09-13 00:00:00 2022-09-13 00:00:00 [facility] Exposure to SARS-CoV-2 (event) 2022-09-01 00:00:00 2022-09-11 13:58:00 Not sure [facility] Sex Assigned At 1995 00:00:00 1995 00:00:00 Parvin Knowles - [place] Smoking Status Start Date Stop Date Source Occasional tobacco smoker 2023-10-06 00:00:00 Parvin Knowles - External Ex-smoker 2022-09-12 00:00:00 2022-09-12 00:00:00 [facility]ations Ordered Medication Name Filled Medication Name Start Date Stop Date Current Medication? Ordering Clinician Indication Dosage Frequency Signature (SIG) Comments Components Source Sertraline HCl 25 MG oral Tablet - 00:00: 00 Yes [id number] 25mg Take 1 tablet (25 mg total) by mouth daily. Parvin Knowles - Externa l Insulin Glargine (Basaglar KwikPen) 100 UNIT/ML subcutaneou s Solution Pen-injecto r 11-28 00:00: 00 Yes [id number] 9101 42U Inject 42 units into the skin daily (with breakfast) 40 units sc daily. Parvin siegel Continuous Blood Gluc Sensor (Dexcom G6 Sensor) does not apply Misc 11-28 00:00: 00 Yes [id number] Check BS continuous ly. Parvin siegel Continuous Blood Gluc Transmit (Dexcom G6 Transmitter ) does not apply Misc 11-28 00:00: 00 Yes [id number] Check BS continousl y. Parvin sieegl Continuous Blood Gluc Roll Cutter (Dexcom G6 Roll Cutter) does not apply Device 11-28 00:00: 00 Yes [id number] Check BS continuous ly. Parvin siegel Mirtazapine 15 MG oral Tablet 11-17 00:00: 00 11-28 00:00 :00 No 15mg Take 1 tablet (15 mg total) by mouth nightly. Parvin siegel Insulin Pen Needle (BD Pen Needle Connie 2nd Gen) 32G X 4 MM does not apply Misc 10-28 00:00: 00 Yes [id number] 9101 Use as directed. Parvin siegel Metoprolol Tartrate (LOPRESSOR) 25 MG oral Tablet 10-27 00:00: 00 11-28 00:00 :00 No [id number] 25mg Take 1 tablet (25 mg total) by mouth daily. Parvin siegel Insulin Glargine (Basaglar KwikPen) 100 UNIT/ML subcutaneou s Solution Pen-injecto r 10-27 00:00: 00 11-28 00:00 :00 No [id number] 9101 40 units sc daily. Parvin siegel Insulin NPH Isophane & Regular (NOVOLIN 70/30 SC) 10-06 10:25: 45 10-06 00:00 :00 No 60U Inject 60 units into the skin daily. Parvin siegel Metoprolol Tartrate (LOPRESSOR) 25 MG oral Tablet 10-06 00:00: 00 Yes [id number] 25mg Take 1 tablet (25 mg total) by mouth daily. Parvin siegel Insulin Glargine (Basaglar KwikPen) 100 UNIT/ML subcutaneou s Solution Pen-injecto r 10-06 00:00: 00 Yes [id number] 9101 40 units sc daily. Parvin siegel Continuous Blood Gluc Roll Cutter (Dexcom G6 Roll Cutter) does not apply Device 10-06 00:00: 00 Yes [id number] Check BS continuous ly. Parvin siegel Continuous Blood Gluc Sensor (Dexcom G6 Sensor) does not apply Misc 10-06 00:00: 00 Yes [id number] Check BS continuous ly. Parvin siegel Continuous Blood Gluc Transmit (Dexcom G6 Transmitter ) does not apply Misc 10-06 00:00: 00 Yes [id number] Check BS continousl y. Parvin siegel Continuous Blood Gluc Roll Cutter (Dexcom G6 Roll Cutter) does not apply Device 10-06 00:00: 00 11-28 00:00 :00 No [id number] Check BS continuous ly. Parvin Llanosa l Continuous Blood Gluc Sensor (Dexcom G6 Sensor) does not apply Misc 10-06 00:00: 00 11-28 00:00 :00 No [id number] Check BS continuous ly. Parvin Llanosa l Continuous Blood Gluc Transmit (Dexcom G6 Transmitter ) does not apply Misc 10-06 00:00: 00 11-28 00:00 :00 No [id number] Check BS continousl y. Parvin siegel Gabapentin 100 MG oral Capsule 10-06 00:00: 00 11-28 00:00 :00 No [id number] 100mg Q.[id number] 3D Take 1 capsule (100 mg total) by mouth 3 times daily as needed (pain). Parvin Benson siegel Acetaminoph en-Codeine 300-30 MG oral Tablet 09-16 00:00: 00 10-06 00:00 :00 No 1{tbl} Q.25D Take 1 tablet by mouth every 6 hours as needed for pain FOR PAIN. Parvin Benson siegel insulin NPH and regular human 70-30 (NOVOLIN 70/30 U-100 INSULIN) 100 unit/mL (70-30) injection 09-14 12:13: 02 09-14 00:00 :00 No 60U inject 60 Units under the skin 2 (two) times daily before breakfast and dinner. General acute hospital insulin NPH and regular human 70-30 (NOVOLIN 70/30 U-100 INSULIN) 100 unit/mL (70-30) injection 09-14 00:00: 00 Yes [id number] 60U inject 60 Units under the skin 2 (two) times daily before breakfast and dinner. General acute hospital atorvastati n 40 mg tablet 09-14 00:00: 00 10-15 05:59 :00 No [id number] 40mg Take 1 tablet by mouth at bedtime for 30 days. General acute hospital lisinopriL 10 mg tablet 09-14 00:00: 00 10-15 05:59 :00 No [id number] 10mg Take 1 tablet by mouth in the morning and 1 tablet in the evening. Do all this for 30 days. General acute hospital morpHINE (4 mg/mL) injection 4 mg 09-13 09:53: 10 Yes 4mg 4 mg, Slow IV Push, Q4HPRN, Starting on 09/13/22 at 0353, Until Discontinu ed, Routine, Pain (scale 7-10) General acute hospital atorvastati n (LIPITOR) tablet 40 mg 09-13 03:00: 00 Yes 40mg 40 mg, Oral, QHS, First dose on Tue09/12/22 at 2100, Until Discontinu ed, Routine General acute hospital lisinopriL (PRINIVIL,Z ESTRIL) tablet 10 mg 09-12 [...] Administer over 60 Minutes, 100 mL [facility] lisinopriL (PRINIVIL,Z ESTRIL) tablet 5 mg 09-12 05:00: 00 09-12 14:35 :46 No 5mg 5 mg, Oral, BID, First dose on 09/11/22 at 2300, Until Discontinu ed, Routine [facility] lactated ringers IV infusion 1,000 mL 09-12 03:15: 00 Yes 1000mL at 150 mL/hr, 1,000 mL, IV Infusion, CONTINUOUS , Starting on 09/11/22 at 2115, Until Discontinu ed, Routine [facility] Sliding Scale Insulin - Lispro (HumaLOG) + Fsbg Testing 09-11 23:00: 00 Yes Subcutaneo us, TID MEALS+HS, First dose on 09/11/22 at 1700, Until Discontinu ed, Routine [facility] enoxaparin (LOVENOX) injection 40 mg 09-11 23:00: 00 Yes 40mg 40 mg, Subcutaneo us, DAILY, First dose on 09/11/22 at 1700, Until Discontinu ed, Routine [facility] lactated ringers IV infusion 1,000 mL 09-11 19:15: 00 09-12 03:05 :27 No 1000mL at 125 mL/hr, 1,000 mL, IV Infusion, CONTINUOUS , Starting on 09/11/22 at 1315, Until 09/11/22 at 2105, Routine General acute hospital lactated ringers IV infusion 1,000 mL 09-11 19:00: 00 09-11 19:56 :58 No 1000mL at 999 mL/hr, 1,000 mL, Intravenou s, ONCE, 1 dose, On 09/11/22 at 1300, Routine General acute hospital NaCl 0.9% (NS) IV infusion 1,000 mL 09-11 18:15: 00 09-11 19:00 :00 No 1000mL at 999 mL/hr, Intravenou s, ONCE, 1 dose, On 09/11/22 at 1215, [facility] FENTanyl PF (SUBLIMAZE (PF)) injection 50 mcg 09-11 18:05: 00 09-11 18:10 :00 No 50ug 50 mcg, Slow IV Push, ONCE, 1 dose, On 09/11/22 at 1215, [facility] ondansetron (ZOFRAN (PF)) injection 4 mg 09-11 18:05: 00 09-11 18:09 :00 No 4mg 4 mg, Slow IV Push, ONCE, 1 dose, On 09/11/22 at 1215, [facility] glucagon (GLUCAGEN DIAGNOSTIC KIT) injection 1 mg 09-11 18:04: 12 Yes 1mg 1 mg, Intramuscu lar, PRN, Starting on 09/11/22 at 1204, Until Discontinu ed, MARITA, Blood Glucose < or = 70 mg/dL and patient is unable to swallow or has mental changes. General acute hospital dextrose 50 % in water (D50W) injection 25 mL 09-11 18:04: 12 Yes 25mL 25 mL, Slow IV Push, PRN, Starting on 09/11/22 at 1204, Until Discontinu ed, MARITA, Blood Glucose < or = 70 mg/dL and patient is unable to swallow or has mental status changes. General acute hospital ondansetron (ZOFRAN (PF)) injection 4 mg 09-11 18:04: 03 Yes 4mg 4 mg, Slow IV Push, Q6HPRN, Starting on 09/11/22 at 1204, Until Discontinu ed, Routine, Nausea and Vomiting (N/V) General acute hospital morpHINE (2 mg/mL) injection 2 mg 09-11 18:03: 52 09-12 18:02 :52 No 2mg 2 mg, Slow IV Push, Q4HPRN, Starting on 09/11/22 at 1203, Until 09/12/22 at 1202, Routine, Pain (scale 7-10) General acute hospital HYDROcodone -acetaminop hen (NORCO 5) 5-325 mg tablet 1 tablet 09-11 18:03: 48 09-13 18:02 :48 No 1{tbl} 1 tablet, Oral, Q6HPRN, Starting on 09/11/22 at 1203, Until 09/13/22 at 1202, Routine, Pain (scale 4-6) General acute hospital acetaminoph en (TYLENOL) tablet 650 mg 09-11 18:03: 39 Yes 650mg 650 mg, Oral, Q6HPRN, Starting on 09/11/22 at 1203, Until Discontinu ed, Routine, Pain (scale 1-3) General acute hospital insulin NPH and regular human 70-30 (70-30 U-100 INSULIN) 100 unit/mL (70-30) injection 60 Units 09-11 18:03: 00 09-11 18:54 :00 No 60U 60 Units, Subcutaneo us, ONCE, 1 dose, On 09/11/22 at 1215, MARITA [facility] FENTanyl PF (SUBLIMAZE (PF)) injection 50 mcg 09-11 16:38: 00 09-11 16:41 :00 No 50ug 50 mcg, Slow IV Push, ONCE, 1 dose, On 09/11/22 at 1045, [facility] iopamidol (ISOVUE 370-500 mL) injection 78 mL 09-11 16:35: 00 09-11 16:45 :00 No [id number] 78mL 78 mL, Intravenou s, ONCE, 1 dose, On 09/11/22 at 1045, Routine General acute hospital ondansetron (ZOFRAN (PF)) injection 4 mg 09-11 15:45: 00 09-11 15:50 :00 No [id number] 4mg 4 mg, Slow IV Push, ONCE, 1 dose, On 09/11/22 at 0945, [facility] famotidine (PEPCID (PF)) injection 20 mg 09-11 15:45: 00 09-11 15:50 :00 No [id number] 20mg 20 mg, Slow IV Push, ONCE, 1 dose, On 09/11/22 at 0945, [facility] NaCl 0.9% (NS) IV infusion 1,000 mL 09-11 15:33: 00 09-11 17:00 :00 No [id number] 1000mL at 999 mL/hr, Intravenou s, ONCE, 1 dose, On 09/11/22 at 0945, [facility] sodium chloride (NS) injection 5 mL 09-11 15:32: 59 Yes [id number] 5mL 5 mL, Intravenou s, PRN, Starting on 09/11/22 at 0932, Until Discontinu ed, Routine, IV line flushing General acute hospital maalox:diph enhydrAMINE :lidocaine 2 % viscous 1:1:1 (FIRST-MOUT HWASH BLM) oral suspension 15 mL 11-08 20:45: 00 11-08 20:39 :00 No 15mL 15 mL, Oral, ONCE, 1 dose, 11/08/20 at 1445, [facility] insulin regular human (HUMULIN R) injection 9 Units 11-08 20:30: 00 11-08 19:39 :00 No 9U 9 Units, Slow IV Push, ONCE, 1 dose, 11/08/20 at 1430, STAT General acute hospital ondansetron (ZOFRAN (PF)) injection 4 mg 11-08 19:45: 00 11-08 18:49 :00 No 4mg 4 mg, Slow IV Push, ONCE, 1 dose, 11/08/20 at 1345, [facility] morpHINE injection 4 mg 11-08 19:45: 00 11-08 18:49 :00 No 4mg 4 mg, Slow IV Push, ONCE, 1 dose, 11/08/20 at 1345, [facility] NaCl 0.9% (NS) bolus infusion 1,000 mL 11-08 19:30: 00 11-08 20:37 :00 No 1000mL at 999 mL/hr, 1,000 mL, IV Infusion, ONCE, 1 dose, 11/08/20 at 1330, [facility] NaCl 0.9% (NS) bolus infusion 1,000 mL 11-08 18:30: 00 11-08 19:39 :00 No 1000mL at 999 mL/hr, 1,000 mL, IV Infusion, ONCE, 1 dose, 11/08/20 at 1230, [facility] ondansetron (ZOFRAN ODT) 4 mg disintegrat ing tablet 11-08 00:00: 00 09-11 00:00 :00 No [id number] 4mg Take 1 tablet by mouth every 8 (eight) hours as needed for Nausea and Vomiting (N/V). General acute hospital dicyclomine 20 mg tablet 11-08 00:00: 00 09-11 00:00 :00 No [id number] 20mg Take 1 tablet by mouth 4 (four) times daily as needed for Abdominal pain. General acute hospital No known medications No Un brendan [facility] Vital Signs Vital Name Observation Time Observation Value Comments S quentin Systolic blood pressure 2023-11-29 15:36:00 115 mm[Hg] Parvin Seybo ld - External Diastolic blood pressure 2023-11-29 15:36:00 80 mm[Hg] Parvin Seybo ld - External Heart rate 2023-11-29 15:36:00 81 /min Kelse y Seybold - External Body temperature 2023-11-29 15:36:00 36.56 Zenaida Parvin Seybold - External Respiratory rate 2023-11-29 15:36:00 15 /min Parvin Seybold - External Body height 2023-11-29 15:36:00 177.8 cm Emma ey Seybold - External Body weight 2023-11-29 15:36:00 97.07 kg Emma ey Seybold - External BMI 2023-11-29 15:36:00 30.71 kg/m2 Emma ey Seybold - External Oxygen saturation in Arterial blood by Pulse oximetry 2023-11-29 15:36:00 100 /min Parvin Seybo ld - External Systolic blood pressure 2023-10-06 16:21:00 135 mm[Hg] Parvin Seybo ld - External Diastolic blood pressure 2023-10-06 16:21:00 90 mm[Hg] Parvin Seybo ld - External Heart rate 2023-10-06 15:48:00 123 /min Petrosse y Seybold - External Body temperature 2023-10-06 15:48:00 36.61 Zenaida Parvin Seybold - External Respiratory rate 2023-10-06 15:48:00 20 /min Parvin Seybold - External Body height 2023-10-06 15:48:00 177.8 cm Emma ey Seybold - External Body weight 2023-10-06 15:48:00 95.255 kg Emma ey Seybold - External BMI 2023-10-06 15:48:00 30.13 kg/m2 Emma ey Seybold - External Oxygen saturation in Arterial blood by Pulse oximetry 2023-10-06 15:48:00 100 /min Parvin Seybo ld - External Systolic blood pressure 2022-09-14 17:21:00 130 mm[Hg] [facility] Diastolic blood pressure 2022-09-14 17:21:00 93 mm[Hg] [facility] Heart rate 2022-09-14 17:21:00 87 /min [facility] Body temperature 2022-09-14 17:21:00 35.56 Zenaida [facility] Respiratory rate 2022-09-14 17:21:00 18 /min [facility] Oxygen saturation in Arterial blood by Pulse oximetry 2022-09-14 17:21:00 98 /min [facility] Body weight 2022-09-14 09:02:00 98.476 kg [facility] BMI 2022-09-14 09:02:00 32.06 kg/m2 [facility] Body height 2022-09-11 19:14:00 175.3 cm [facility] Systolic blood pressure 2020-11-08 21:00:00 136 mm[Hg] [facility] Diastolic blood pressure 2020-11-08 21:00:00 95 mm[Hg] [facility] Heart rate 2020-11-08 21:00:00 93 /min [facility] Respiratory rate 2020-11-08 21:00:00 16 /min [facility] Oxygen saturation in Arterial blood by Pulse oximetry 2020-11-08 21:00:00 98 /min [facility] Body temperature 2020-11-08 18:12:00 36.44 Zenaida [facility] Body height 2020-11-08 18:12:00 175.3 cm [facility] Body weight 2020-11-08 18:12:00 92.987 kg [facility] BMI 2020-11-08 18:12:00 30.27 kg/m2 [facility] Procedures Procedure Date / Time Performed Performing Clinician Source POCT GLUCOSE (AUTOMATED) 2022-09-14 17:22:00 Lazaro [facility] LIPASE 2022-09-14 11:57:00 Michael Jung [facility] BASIC METABOLIC PANEL (NA, K, CL, CO2, GLUCOSE, BUN, CREATININE, CA) 2022-09-14 11:57:00 [facility] LIPID PANEL (68078)(TOTAL CHOLESTEROL, TRIGLYCERIDES, HDL) 2022-09-14 11:57:00 [facility] CBC WITH DIFF 2022-09-14 11:57:00 Michael Jung [facility] POCT GLUCOSE (AUTOMATED) 2022-09-14 02:35:00 Ovesteban [facility] POCT GLUCOSE (AUTOMATED) 2022-09-13 22:59:00 Elsa [facility] POCT GLUCOSE (AUTOMATED) 2022-09-13 17:43:00 Elsa [facility] POCT GLUCOSE (AUTOMATED) 2022-09-13 13:30:00 Elsa [facility] BASIC METABOLIC PANEL (NA, K, CL, CO2, GLUCOSE, BUN, CREATININE, CA) 2022-09-13 09:26:00 [facility] POCT GLUCOSE (AUTOMATED) 2022-09-12 22:34:00 Elsa [facility] POCT GLUCOSE (AUTOMATED) 2022-09-12 17:15:00 [facility] POCT GLUCOSE (AUTOMATED) 2022-09-12 13:44:00 Elsa [facility] MAGNESIUM 2022-09-12 09:07:00 Elsa [facility] HEPATIC FUNCTION PANEL (29757) (ALB,T.PRO,BILI T,BU/BC,ALT,AST,ALK PHOS) 2022-09-12 09:07:00 Elsa [facility] BASIC METABOLIC PANEL (NA, K, CL, CO2, GLUCOSE, BUN, CREATININE, CA) 2022-09-12 09:07:00 [facility] LIPID PANEL (00131)(TOTAL CHOLESTEROL, TRIGLYCERIDES, HDL) 2022-09-12 09:07:00 Elsa [facility] CBC WITH DIFF 2022-09-12 09:07:00 E[facility] POCT GLUCOSE (AUTOMATED) 2022-09-12 09:01:00 [facility] POCT GLUCOSE (AUTOMATED) 2022-09-12 02:38:00 Esa [facility] POCT GLUCOSE (AUTOMATED) 2022-09-11 22:42:00 Ma[facility] POCT GLUCOSE (AUTOMATED) 2022-09-11 18:57:[address] [facility] POCT GLUCOSE(AGE >30DAYS) 2022-09-11 17:22:[address] [facility] POCT GLUCOSE (AUTOMATED) 2022-09-11 17:21:[address] [facility] [address] ABDOMEN PELVIS W CONTRAST 2022-09-11 16:38:[address] [facility] POCT GLUCOSE (AUTOMATED) 2022-09-11 15:59:[address] [facility] LIPASE 2022-09-11 15:48:00 Mateus [facility] COMP. METABOLIC PANEL ([id number]) 2022-09-11 15:48:[address] [facility] CBC WITH DIFF 2022-09-11 15:48:[address] [facility] GLYCOSYLATED HEMOGLOBIN (A1C) 2022-09-11 15:48:00 Maikel [facility] URINALYSIS 2022-09-11 15:46:00 Mateus [facility] CONSENT/REFUSAL FOR DIAGNOSIS AND TREATMENT 2022-09-11 15:16:37 Doctor Unassigned, [facility] POCT GLUCOSE (AUTOMATED) 2020-11-08 20:26:00 Hung [facility] LIPASE 2020-11-08 18:29[facility] ([id number]) (ALB,T.PRO,BILI T,BU/BC,ALT,AST,ALK PHOS) 2020-11-08 18:29:[address] [facility] BASIC METABOLIC PANEL (NA, K, CL, CO2, GLUCOSE, BUN, CREATININE, CA) 2020-11-08 18:29:00 [facility] CBC WITH DIFF 2020-11-08 18:29:00 Syeda Persaud [facility] URINALYSIS 2020-11-08 18:29:00 Syeda Persaud [facility] NOTICE OF PRIVACY PRACTICES 2020-11-08 18:06:16 Doctor Unassigned, [facility] CONSENT/REFUSAL FOR DIAGNOSIS AND TREATMENT 2020-11-08 18:06:04 Doctor Unassigned, [facility] Encounters Start Date/Time End Date/Time Encounter Type Admission Type Attending [facility] Facility Care Department Encounter ID Source 2021-09-30 12:34:38 Outpatient [facility] [id number] [facility] 2024-02-21 15:30:00 2024-02-21 15:30:00 Outpatient BROOKLYNN AGUILAR [id number] [facility] 2024-01-23 14:15:00 2024-01-23 14:15:00 Outpatient NANCY WEST [id number] [facility] 2024-01-09 10:30:00 2024-01-09 10:30:00 Outpatient MICHAEL BRAVO [id number] [facility] 2023-12-30 15:30:00 2023-12-30 15:30:00 Outpatient MICHAEL BRAVO [id number] [facility] 2023-12-27 16:30:00 2023-12-27 16:30:00 Outpatient PARVIN HERNÁNDEZ [id number] [facility] 2023-12-05 00:00:00 2023-12-05 00:00:00 Outpatient MICHAEL BRAVO [id number] [facility] 2023-11-29 10:30:00 2023-11-29 10:30:00 Outpatient MICHAEL BRAVO [id number] [facility] 2023-11-28 14:00:00 2023-11-28 14:00:00 Outpatient GENEISS MONTGOMERY PARVIN [id number] [facility] 2023-11-28 00:00:00 2023-11-28 00:00:00 Outpatient PREZAS, MICHAEL HERNÁNDEZ PARVIN [id number] [facility] 2023-11-07 00:00:00 2023-11-07 00:00:00 Outpatient PREZAS, MICHAEL HERNÁNDEZ PARVIN [id number] [facility] 2023-10-27 00:00:00 2023-10-27 00:00:00 Outpatient PREZAS, MICHAEL HERNÁNDEZ PARVIN [id number] [facility] 2023-10-26 00:00:00 2023-10-26 00:00:00 Outpatient PREZAS, MICHAEL HERNÁNDEZ PARVIN [id number] [facility] 2023-10-26 00:00:00 2023-10-26 00:00:00 Outpatient PREZAS, MICHAEL HERNÁNDEZ PARVIN [id number] [facility] 2023-10-19 16:45:00 2023-10-19 16:45:00 Outpatient PREZAS, MICHAEL HERNÁNDEZ PARVIN [id number] [facility] 2023-10-18 14:30:00 2023-10-18 14:30:00 Outpatient PARVIN PARVIN [id number] [facility] 2023-10-10 00:00:00 2023-10-10 00:00:00 Outpatient PREZAS, MICHAEL PARVIN HERNÁNDEZ [id number] [facility] 2023-10-07 00:00:00 2023-10-07 00:00:00 Outpatient PREZAS, MICHAEL PARVIN HERNÁNDEZ [id number] [facility] 2023-10-06 10:45:00 2023-10-06 10:45:00 Outpatient LAB90 PARVIN HERNÁNDEZ [id number] [facility] 2023-10-06 09:30:00 2023-10-06 09:30:00 Outpatient PREZAS, MICHAEL PARVIN HERNÁNDEZ [id number] [facility] 2023-08-24 10:15:00 2023-08-24 10:15:00 Outpatient MICHAEL BRAVO [id number] [facility] 2022-09-15 00:00:00 2022-09-15 00:00:00 Transition of Care Nabil AlmanzarKaro ROUSE [id number] 350.1.13.10 [id number] [id number] General acute hospital 2022-09-11 09:26:00 2022-09-14 13:00:00 Inpatient X JACKIESTEBAN LAZARO [facility] [id number] General acute hospital 2022-09-11 09:26:00 2022-09-14 13:00:00 Hospital Encounter Augustin Ignacio, Esa Hunter [facility] 1.2840.114 350.1.13.10 4.2.7.2.686 [id number] General acute hospital 2020-11-08 12:16:00 2020-11-08 15:38:00 Emergency [facility] 1.2840.114 350.1.13.10 4.2.7.2.686 [id number] General acute hospital 2020-11-08 12:06:00 2020-11-08 12:06:00 Emergency X [facility] ERT [id number] General acute hospital 2020-11-08 00:00:00 2020-11-08 00:00:00 Orders Only Doctor Unassigned, [place] [facility] 1.2840.114 350.1.13.10 4.2.7.2.686 [id number] General acute hospital Results Test Description Test Time Test Comments Results Result [facility]-14 02:40:24* Test Item Value Reference Range Interpretation Comme nts POCT GLU (test code = 3235595627) 191 mg/dL 70-110 H Lab Interpretation (test cod e = 30420-8) Abnormal [facility] GLUCOSE (AUTOMATED)2022-09-13 23:13:20* Test Item Value Reference Range Interpretation Comme nts POCT GLU (test code = 3338778903) 126 mg/dL 70-110 H Lab Interpretation (test cod e = 63585-7) Abnormal [facility] GLUCOSE (AUTOMATED)2022-09-13 17:51:10* Test Item Value Reference Range Interpretation Comme nts POCT GLU (test code = 4514846049) 270 mg/dL 70-110 H Lab Interpretation (test cod e = 84758-9) Abnormal [facility] GLUCOSE (AUTOMATED)2022-09-13 14:08:01* Test Item Value Reference Range Interpretation Comme nts POCT GLU (test code = 2330150752) 177 mg/dL 70-110 H Lab Interpretation (test cod e = 85896-8) Abnormal [facility] GLUCOSE (AUTOMATED)2022-09-12 22:53:55* Test Item Value Reference Range Interpretation Comme nts POCT GLU (test code = 4371752181) 207 mg/dL 70-110 H Lab Interpretation (test cod e = 35575-0) Abnormal [facility] GLUCOSE (AUTOMATED)2022-09-12 18:09:02* Test Item Value Reference Range Interpretation Comme nts POCT GLU (test code = 6081682204) 92 mg/dL 70-110 Lab Interpretation (test cod e = 52948-4) [facility] (47719)(TOTAL CHOLESTEROL, TRIGLYCERIDES, HDL)2022-09-12 14:58:08* Test Item Value Reference Range Interpretation Comme nts CHOL (test code = 2043702406) 138 mg/dL 120-200 HDL (test code = 1317532322) 23 mg/dL See_Comment L [Automated messa ge] The system which generated this result transmitted reference range: >=40. The reference range was not used to interpret this result as normal/abnormal. HDLC RATIO (test code = 3926419658) See_Comment H [Automated messa ge] The system which generated this result transmitted reference range: <=5.0. The reference range was not used to interpret this result as normal/abnormal. TRIG (test code = 1492812009) 171 mg/dL 30-170 H LDL CHOL (test code = 99880-0) 81 mg/dL See_Comment [Automated [employer] BIO-NEMS] The system which generated this result transmitted reference range: <=160. The reference range was not used to interpret this result as normal/abnormal. VLDL (test code = 1031588371) 34 mg/dL 5-60 Lab Interpretation (test code = 81888-0) [facility]2022-09-12 13:54:38* Test Item Value Reference Range Interpretation Comme nts POCT GLU (test code = 8682352839) 84 mg/dL 70-110 Lab Interpretation (test cod e = 49110-3) [facility] HospitalHEPATIC FUNCTION PANEL (53036) (ALB,T.PRO,BILI T,BU/BC,ALT,AST,ALK PHOS)2022-09-12 13:03:03* Test Item Value Reference Range Interpretation Comme nts TOTAL BILI (test code = 2442945324) 1.0 mg/dL 0.1-1.1 BILI UNCON (test code = 2090030704) 0.8 mg/dL 0.1-1.1 BILI CONJ (test code = 5092403497) 0.0 mg/dL 0.0-0.3 T PROTEIN (test code = 1166378416) 6.7 g/dL 6.3-8.2 ALBUMIN (test code = 4481030567) 4.0 g/dL 3.5-5.0 ALK PHOS (test code = 0716360542) 106 U/L 34-122 ALTv (test code = 1742-6) 146 U/L 5-50 H AST(SGOT) (test code = 3647462379) 81 U/L 13-40 H Lab Interpretation (test cod e = 02180-1) [facility] 13:02:43* Test Item Value Reference Range Interpretation Comme nts MAGNESIUM (test code = 0074479224) 1.8 mg/dL 1.7-2.4 Lab Interpretation (test cod e = 04584-6) [facility]IC [facility]OLIC PANEL (NA, K, CL, CO2, GLUCOSE, BUN, CREATININE, CA)2022-09-12 12:10:26* Test Item Value Reference Range Interpretation Comme nts NA (test code = 3156924805) 142 mmol/L 135-145 K (test code = 7459177944) 3.1 mmol/L 3.5-5.0 L CL (test code = 0197435457) 106 mmol/L 98-108 CO2 TOTAL (test code = 2816543443) 24 mmol/L 23-31 AGAP (test code = 4765293444) 2-16 BUN (test code = 5520849473) 8 mg/dL 7-23 GLUCOSE (test code = 7666636657) 73 mg/dL 70-110 CREATININE (test code = 8902887893) 0.72 mg/dL 0.60-1.25 CALCIUM (test code = 6888496649) 8.1 mg/dL 8.6-10.6 L eGFR (test code = 7544214391) mL/min/1.73m2 RAFAEL (test code = RAFAEL) Association [...] imaging tests). Lab Interpretation (test code = 52635-3) Abnormal [facility] WITH [id number] 11:46:12* Test Item Value Reference Range Interpretation [...] 35.0 g/dL 31.2-35.0 RDW-SD (test code = 72923-7) 36.0 fL 38.5-51.6 L RDW-CV (test code = 788-0) 11.9 % 12.1-15.4 L PLT (test code = 777-3) See_Comment [Automated messa ge] The system which generated this result transmitted reference range: 150 - 328 10*3/?L. The reference range was not used to interpret this result as normal/abnormal. MPV (test code = 49577-6) 10.7 fL 9.8-13.0 NRBC/100 WBC (test code = 9466900190) See_Comment [Automated [employer] ssage] The system which generated this result transmitted reference range: 0.0 - 10.0 /100 WBCs. The reference range was not used to interpret this result as normal/abnormal. NRBC x10^3 (test code = 4492365896) See_Comment [Automated messa ge] The system which generated this result transmitted reference range: 10*3/?L. The reference range was not used to interpret this result as normal/abnormal. GRAN MAT (NEUT) % (test code = 770-8) 50.2 % IMM GRAN % (test code = 9734745252) 0.40 % LYMPH % (test code = 736-9) 37.0 % MONO % (test code = 5905-5) 8.3 % EOS % (test code = 713-8) 3.6 % BASO % (test code = 706-2) 0.5 % GRAN MAT x10^3(ANC) (test code = 0061220309) 4.81 10*3/uL 1.99-6.95 IMM GRAN x10^3 (test code = 8960438088) 0.04 10*3/uL 0.00-0.06 LYMPH x10^3 (test code = 731-0) 3.56 10*3/uL 1.09-3.23 H MONO x10^3 (test code = 742-7) 0.80 10*3/uL 0.36-1.02 EOS x10^3 (test code = 711-2) 0.35 10*3/uL 0.06-0.53 BASO x10^3 (test code = 704-7) 0.05 10*3/uL 0.01-0.09 Lab Interpretation (test code = 08438-1) Abnormal [facility] GLUCOSE (AUTOMATED)2022-09-12 11:19:34* Test Item Value Reference Range Interpretation Comme nts POCT GLU (test code = 4157034620) 70 mg/dL 70-110 Lab Interpretation (test cod e = 43435-6) Normal [facility] GLUCOSE (AUTOMATED)2022-09-12 02:46:59* Test Item Value Reference Range Interpretation Comme nts POCT GLU (test code = 4540548462) 90 mg/dL 70-110 Lab Interpretation (test cod e = 24207-3) Normal [facility] GLUCOSE (AUTOMATED)2022-09-11 23:13:35* Test Item Value Reference Range Interpretation Comme nts POCT GLU (test code = 2599679428) 120 mg/dL 70-110 H Lab Interpretation (test cod e = 32715-9) [facility]cosylated Hemoglobin (A1C)2022-09-11 20:41:39* Test Item Value Reference Range Interpretation Comme nts HGB A1C (test code = 4548-4) 10.1 % 4.0-5.7 H RAFAEL (test code = RAFAEL) Reference RangesNormal: <5.7%Prediabetes: 5.7 - 6.4%Diabetes: > 6.5% Lab Interpretation (test code = 03206-2) Abnormal [facility] GLUCOSE (AUTOMATED)2022-09-11 19:01:23* Test Item Value Reference Range Interpretation Comme nts POCT GLU (test code = 6637166747) 302 mg/dL 70-110 H Lab Interpretation (test cod e = 97493-9) Abnormal [facility] GLUCOSE (AUTOMATED)2022-09-11 19:01:23* Test Item Value Reference Range Interpretation Comme nts POCT GLU (test code = 1353853750) 277 mg/dL 70-110 H Lab Interpretation (test cod e = 28730-1) Abnormal [facility] GLUCOSE (AUTOMATED)2022-09-11 19:01:23* Test Item Value Reference Range Interpretation Comme nts POCT GLU (test code = 5039804311) 283 mg/dL 70-110 H Lab Interpretation (test cod e = 54768-0) Abnormal [facility] GLUCOSE(AGE >30DAYS)2022-09-11 17:22:00* Test Item Value Reference Range Interpretation Comme nts POCT Glu (age>30days) (test code = 3342) 277 mg/dL 70-110 A Lab Interpretation (test cod e = 99403-3) [facility] Metabolic [id number] 16:11:48* Test Item Value Reference Range Interpretation Comme nts NA (test code = 2211353481) 137 mmol/L 135-145 K (test code = 3789723915) 4.5 mmol/L 3.5-5.0 CL (test code = 3663417536) 102 mmol/L 98-108 CO2 TOTAL (test code = 9319915757) 22 mmol/L 23-31 L AGAP (test code = 4453076362) 2-16 BUN (test code = 3764420877) 15 mg/dL 7-23 GLUCOSE (test code = 6729703148) 318 mg/dL 70-110 H CREATININE (test code = 9685234180) 0.76 mg/dL 0.60-1.25 TOTAL BILI (test code = 5472178603) 1.5 mg/dL 0.1-1.1 H CALCIUM (test code = 1739320471) 9.1 mg/dL 8.6-10.6 T PROTEIN (test code = 0574142559) 7.7 g/dL 6.3-8.2 ALBUMIN (test code = 8685379454) 5.0 g/dL 3.5-5.0 ALK PHOS (test code = 7890197100) 124 U/L 34-122 H ALTv (test code = 1742-6) 173 U/L 5-50 H AST(SGOT) (test code = 0887701224) 76 U/L 13-40 H eGFR (test code = 9623483585) mL/min/1.73m2 RAFAEL (test code = RAFAEL) Association [...] imaging tests). Lab Interpretation (test code = 16742-0) [facility] Hospital[facility], Npuvu7822-90-17 16:11:22* Test Item Value Reference Range Interpretation Comme nts LIPASE (test code = 3723558054) 22 U/L 0-220 Lab Interpretation (test cod e = 82386-3) [facility] HospitalCBC with Ntpaiwrmzyfx4451-75-31 15:57:05* Test Item Value Reference Range Interpretation Comme nts WBC (test code = 6690-2) See_Comment H [Automated [employer] ge] The system which generated this result transmitted reference range: 4.20 - 10.70 10*3/?L. The reference range was not used to interpret this result as normal/abnormal. RBC (test code = 789-8) See_Comment [Automated [employer] ge] The system which generated this result [...] g/dL 31.2-35.0 H RDW-SD (test code = 80584-5) 35.5 fL 38.5-51.6 L RDW-CV (test code = 788-0) 11.8 % 12.1-15.4 L PLT (test code = 777-3) See_Comment [Automated [employer] ge] The system which generated this result transmitted reference range: 150 - 328 10*3/?L. The reference range was not used to interpret this result as normal/abnormal. MPV (test code = 88723-4) 10.3 fL 9.8-13.0 NRBC/100 WBC (test code = 3437468924) See_Comment [Automated me ssage] The system which generated this result transmitted reference range: 0.0 - 10.0 /100 WBCs. The reference range was not used to interpret this result as normal/abnormal. NRBC x10^3 (test code = 8670052089) See_Comment [Automated messa ge] The system which generated this result transmitted reference range: 10*3/?L. The reference range was not used to interpret this result as normal/abnormal. GRAN MAT (NEUT) % (test code = 770-8) 64.6 % IMM GRAN % (test code = 8368280449) 0.50 % LYMPH % (test code = 736-9) 25.3 % MONO % (test code = 5905-5) 7.3 % EOS % (test code = 713-8) 1.9 % BASO % (test code = 706-2) 0.4 % GRAN MAT x10^3(ANC) (test code = 3977248999) 7.62 10*3/uL 1.99-6.95 H IMM GRAN x10^3 (test code = 2733994768) 0.06 10*3/uL 0.00-0.06 LYMPH x10^3 (test code = 731-0) 2.98 10*3/uL 1.09-3.23 MONO x10^3 (test code = 742-7) 0.86 10*3/uL 0.36-1.02 EOS x10^3 (test code = 711-2) 0.22 10*3/uL 0.06-0.53 BASO x10^3 (test code = 704-7) 0.05 10*3/uL 0.01-0.09 Lab Interpretation (test code = 46338-9) [facility])2020-11-08 20:30:00* Test Item Value Reference Range Interpretation Comme [facility] POCT GLU (test code = 1985412268) 181 mg/dL 70-110 H Lab Interpretation (test cod e = 62779-7) Abnormal [facility] Metabolic Panel (NA, K, CL, CO2, GLUCOSE, BUN, CREATININE, CA)2020-11-08 18:48:00* Test Item Value Reference Range Interpretation Comme nts NA (test code = 0345306833) 134 mmol/L 135-145 L K (test code = 1971196139) 4.0 mmol/L 3.5-5 CL (test code = 4146682974) 96 mmol/L 98-108 L CO2 TOTAL (test code = 0729113208) 29 mmol/L 23-31 AGAP (test code = 0036986568) 2-16 BUN (test code = 1385491304) 10 mg/dL 7-23 GLUCOSE (test code = 3686986629) 368 mg/dL 70-110 H CREATININE (test code = 4602257298) 0.58 mg/dL 0.6-1.25 L CALCIUM (test code = 9890412626) 9.1 mg/dL 8.6-10.6 eGFR Calculation (Non-) (test code = 9287284105) mL/min/1.73m2 eGFR Calculation () (test code = 2882656696) mL/min/1.73m2 RAFAEL (test code = RAFAEL) Association [...] imaging tests). Lab Interpretation (test code = 87880-2) [facility] (ALB, T.PRO, BILI T, BU/BC, ALT, AST, ALK PHOS)2020-11-08 18:48:00* Test Item Value Reference Range Interpretation Comme nts TOTAL BILI (test code = 9727256547) 0.8 mg/dL 0.1-1.1 BILI UNCON (test code = 2370589343) 0.8 mg/dL 0.1-1.1 BILI CONJ (test code = 6734267203) 0.0 mg/dL 0-0.3 T PROTEIN (test code = 3560998971) 7.8 g/dL 6.3-8.2 ALBUMIN (test code = 0286350711) 4.7 g/dL 3.5-5 ALK PHOS (test code = 3181444287) 147 U/L 34-122 H ALTv (test code = 1742-6) 48 U/L 5-50 AST(SGOT) (test code = 9849718683) 42 U/L 13-40 H Lab Interpretation (test cod e = 93003-6) [facility] HospitalLipase Tpxmb2806-99-69 18:48:00* Test Item Value Reference Range Interpretation Comme nts LIPASE (test code = 2362646723) 27 U/L 0-220 Lab Interpretation (test cod e = 64402-6) [facility] HospitalUrinalysis2021-03-06 18:39:00* Test Item Value Reference Range Interpretation Comme nts APPEARANCE (test code = 8015367660) Clear Clear COLOR (test code = 7658980806) Yellow Yellow PH (test code = 0954243262) 4.8-8.0 SP GRAVITY (test code = 9861717351) 1.003-1.030 H GLU U QUAL (test code = 3885058282) 500 mg/dL Normal A BLOOD (test code = 6246567660) Negative Negative KETONES (test code = 5318190207) 5 mg/dL Negative A PROTEIN (test code = 2887-8) Negative Negative UROBILIN (test code = 0809757475) Normal Normal BILIRUBIN (test code = 3229224739) Negative Negative NITRITE (test code = 3725143044) Negative Negative LEUK ALYSHA (test code = 7441875077) Negative Negative RBC/HPF (test code = 3665159861) See_Comment [Automated messa ge] The system which generated this result transmitted reference range: 0 - 3 HPF. The reference range was not used to interpret this result as normal/abnormal. WBC/HPF (test code = 2996129243) See_Comment [Automated messa ge] The system which generated this result transmitted reference range: 0 - 5 HPF. The reference range was not used to interpret this result as normal/abnormal. BACTERIA (test code = 7767690515) Negative Negative Lab Interpretation (test code = 34108-7) Abnormal [facility] with Ivauohjcaxkj7538-42-71 18:36:00* Test Item Value Reference Range Interpretation [...] g/dL 31.2-35 H RDW-SD (test code = 12573-6) 33.7 fL 38.5-51.6 L RDW-CV (test code = 788-0) 11.5 % 12.1-15.4 L PLT (test code = 777-3) See_Comment H [Automated messa ge] The system which generated this result transmitted reference range: 150 - 328 10*3/?L. The reference range was not used to interpret this result as normal/abnormal. MPV (test code = 20264-2) 10.2 fL 9.8-13 NRBC/100 WBC (test code = 9662772701) See_Comment [Automated [employer] ssage] The system which generated this result transmitted reference range: 0.0 - 10.0 /100 WBCs. The reference range was not used to interpret this result as normal/abnormal. NRBC x10^3 (test code = 2863674570) <0.01 See_Comment [Automated messa ge] The system which generated this result transmitted reference range: 10*3/?L. The reference range was not used to interpret this result as normal/abnormal. GRAN MAT (NEUT) % (test code = 770-8) 60.3 % IMM GRAN % (test code = 2571369081) 0.70 % LYMPH % (test code = 736-9) 29.2 % MONO % (test code = 5905-5) 4.7 % EOS % (test code = 713-8) 3.9 % BASO % (test code = 706-2) 1.2 % GRAN MAT x10^3(ANC) (test code = 5486503921) 6.44 10*3/uL 1.99-6.95 IMM GRAN x10^3 (test code = 3166869728) 0.07 10*3/uL 0-0.06 H LYMPH x10^3 (test code = 731-0) 3.12 10*3/uL 1.09-3.23 MONO x10^3 (test code = 742-7) 0.50 10*3/uL 0.36-1.02 EOS x10^3 (test code = 711-2) 0.42 10*3/uL 0.06-0.53 BASO x10^3 (test code = 704-7) 0.13 10*3/uL 0.01-0.09 H Lab Interpretation (test code = 71134-1) [facility]"
[2023-12-09] MEDS ORDERED: ONDANSETRON 4 MG/2 ML VIAL ONE (10:15)
[2023-12-09] MEDS ORDERED: NA CHLORIDE 0.9% 1,000 ML ONE (10:15)
[2023-12-09] MEDS ORDERED: MORPHINE 4 MG/ML SYR ONE (10:15)
[2023-12-09 10:43] LABS: Absolute Basophils 0.1 K/uL (0-0.5); Absolute Eosinophils 0.3 K/uL (0-0.5); Absolute Lymphocytes (CBC) 2.1 K/uL (0.7-4.9); Absolute Monocytes 0.6 K/uL (0.1-1.3); Absolute Neutrophil 4.8 K/uL (1.8-8.0); Basophils % 1.2 % (0-1.3); Eosinophils % 3.7 % (0-4.4); Hematocrit 40.3 % (39.6-49.0); Hemoglobin 13.9 g/dL (13.6-17.9); Lymphocytes % 26.9 % (15.3-44.8); MCH 29.1 pg (27.0-35.0); MCHC 34.5 g/dL (32.0-36.0); MCV 84.4 fL (80-100); MPV 8.9 fL (7.6-11.3); Neutrophils % 61.2 % (41.7-73.7); Platelets 282 thou/uL (152-406); RBC Red Blood Cell Count 4.78 M/uL (4.33-5.43); Red Cell Distribution Width 12.9 % (12.1-15.2)
[2023-12-09 11:01] LABS: Albumin 3.3 g/dL (3.4-5.0); Anion Gap 7.6 mEq/L (5.0-15.0); Bilirubin Total 0.5 mg/dL (0.2-1.0); Globulin 3.4 g/dL (2.3-3.5); Potassium 3.6 mEq/L (3.5-5.1); Protein, Total 6.7 g/dL (6.4-8.2)
[2023-12-09] MEDS ORDERED: FENTANYL CITR 100 MCG/2 ML ONE (11:15)
--- NOTE | 2023-12-09 11:56 | EDPHYS ---
Physician Documentation [facility] Name: Jimenez Patrick Age: 28 yrs Sex: Male : 1995 Arrival Date: 12/09/2023 Time: 10:01 Bed 7 Private MD: Farzad Rahman ED Physician Dontrell Dunlap HPI: 12/08 10:22 This 28 yrs old Male presents to ER via Ambulatory with complaints of rn Abdominal Pain, Nausea. 10:22 The patient presents to the emergency department with nausea, abdominal pain. Onset: rn The symptoms/episode began/occurred this morning. Possible causes: flare up of bowel problem, Chronic pancreatitis. The symptoms are aggravated by nothing. The symptoms are alleviated by nothing. Associated signs and symptoms: Pertinent positives: abdominal pain, nausea, Pertinent negatives: fever, GI bleeding. Severity of symptoms: At their worst the symptoms were mild in the emergency department the symptoms are unchanged. The patient has experienced similar episodes in the past. Patient reports history of chronic pancreatitis, seen here 4 days ago, felt better but now abdominal pain returned this morning upon awakening. No fever or chills. No associated runny nose. No blood in stool. No vomiting.. Historical: - Allergies: 10:14 NKA; ll1 - PMHx: 10:14 Chronic Pancreatitis; Diabetes - IDDM; Hypertensive disorder; ll1 - PSHx: 10:14 Cholecystectomy; I\T\D; stents x 2 in pancreas; ll1 - Immunization history:: Adult Immunizations up to date. - Infectious Disease History:: Denies. - Social history:: Smoking status: Reported history of juuling and/or vaping. Patient denies any tobacco usage or history of. - Family history:: not pertinent. - Hospitalizations: : No recent hospitalization is reported. ROS: 10:22 Constitutional: Negative for fever, chills, and weight loss, Cardiovascular: Negative rn for chest pain, palpitations, and edema, Respiratory: Negative for shortness of breath, cough, wheezing, and pleuritic chest pain, Abdomen/GI: Positive for abdominal pain and nausea Back: Negative for injury and pain, MS/Extremity: Negative for injury and deformity, Skin: Negative for injury, rash, and discoloration, Neuro: Negative for headache, weakness, numbness, tingling, and seizure, Exam: 10:22 Constitutional: This is a well developed, well nourished patient who is awake, alert, rn and in no acute distress. Ambulatory to room without difficulty or assistance Cardiovascular: Regular rate and rhythm. No pulse deficits. Respiratory: No increased work of breathing, no retractions or nasal flaring. Abdomen/GI: Soft, mild tenderness epigastric region. Vital Signs: 10:14 BP 161 / 101; Pulse 67; Resp 18; Temp 97.6; Pulse Ox 96% on R/A; Weight 95.25 kg; ll1 Height 5 ft. 9 in. ; Pain 7/10; 11:05 BP 141 / 87; Pulse 68; Resp 14; Pulse Ox 99% ; ko1 11:07 BP 141 / 90; Pulse 71; Resp 17; Pulse Ox 97% on R/A; ap3 11:40 BP 139 / 97; Pulse 63; Resp 14; Pulse Ox 99% ; ko1 10:14 Body Mass Index 31.01 (95.25 kg, 175.26 cm) ll1 10:14 Pain Scale: Adult ll1 MDM: 10:05 Patient medically screened. rn 11:54 Differential diagnosis: Nonspecific abd pain, gastritis, pancreatitis. Data reviewed: rn vital signs, nurses notes, old medical records, lab test result(s), and as a result, I will discharge patient. Counseling: I had a detailed discussion with the patient and/or guardian regarding the historical points, exam findings, and any diagnostic results supporting the discharge/admit diagnosis, lab results, the need for outpatient follow up, to return to the emergency department if symptoms worsen or persist or if there are any questions or concerns that arise at home. Response to treatment: the patient's symptoms have markedly improved after treatment, and as a result, I will discharge patient. Special discussion: Based on the patient's Hx, exam, and Dx evaluation, there is no indication for emergent surgery or inpatient Tx. It is understood by the patient/guardian that if the Sx's persist or worsen they need to return immediately for re-evaluation. I discussed with the patient/guardian in detail that at this point there is no indication for admission to the hospital. It is understood, however, that if the symptoms persist or worsen the patient needs to return immediately for re-evaluation. ED course: No changes in testing compared to a few days ago. Just had negative CT abdomen pelvis as well as negative ultrasound a few days ago here. LFTs actually look better. Lipase normal. Pain controlled. Will discharge home as possible chronic pancreatitis.. 12/08 10:13 Order name: CBC with Diff; Complete Time: 11: rn 12/08 10:13 Order name: CMP; Complete Time: 11: rn 12/08 10:13 Order name: Lipase; Complete Time: 11: rn 12/08 10:13 Order name: IV Saline Lock; Complete Time: rn 12/08 10:13 Order name: Labs collected and sent; Complete Time: : rn Administered Medications: 10:28 Drug: NS 0.9% IV 1000 ml IV at 1 bolus Per protocol; 1000 mL bolus Route: IV; Rate: 1 ko1 bolus; Site: right antecubital; 12:00 Follow up: Response: No adverse reaction; IV Status: Completed infusion; IV Intake: ko1 1000ml 10:28 Drug: Ondansetron IVP 4 mg IVP once; over 2 minutes Route: IVP; Site: right antecubital;ko1 10:45 Follow up: Response: No adverse reaction ko1 10:28 Drug: morphine IVP or IV 4 mg IVP once over 4 mins Route: IVP; Infused Over: 4 mins; ko1 Site: right antecubital; 10:45 Follow up: Response: No adverse reaction; Pain is decreased ko1 11:16 Drug: fentaNYL (PF) IVP 50 mcg IVP once Route: IVP; Site: right antecubital; ko1 11:35 Follow up: Response: No adverse reaction; Pain is decreased ko1 Disposition Summary: 12/09/23 11:55 Discharge Ordered Notes: Location: Home rn Problem: new rn Symptoms: have improved rn Condition: Stable rn Diagnosis - Upper abdominal pain, unspecified rn - Other chronic pancreatitis rn Followup: rn - With: Private Physician - When: As needed - Reason: Recheck today's complaints, Re-evaluation by your physician Discharge Instructions: - Discharge Summary Sheet rn - Abdominal Pain, Adult rn Forms: - Medication Reconciliation Form rn - Thank You Letter rn - Antibiotic sport intern - Prescription Opioid Use rn - Patient Portal Instructions rn - Leadership Thank You Letter rn Prescriptions: - ondansetron 4 mg Oral Tablet,disintegrating - take 1 tablet ORAL route every 8 hours As needed; 10 tablet; Refills: 0, rn Product Selection Permitted - Tramadol 50 mg Oral Tablet - take 1 tablet ORAL route every 8 hours as needed; 12 tablet; Refills: 0, rn Product Selection Permitted Signatures: Dispatcher [employer] EDDontrell Molina MD MD rn Lewis, Lynsay RN RN ll1 Dominique Huitron RN RN ko1 Corrections: (The following items were deleted from the chart) 10:14 10:14 CBC+H.LAB.BRZ ordered. EDMS EDMS 10:14 10:14 COMPREHENSIVE METABOLIC PANEL+C.LAB.BRZ ordered. EDMS EDMS 10:14 10:14 LIPASE+C.LAB.BRZ ordered. EDMS EDMS
--- NOTE | 2023-12-09 11:56 | ER ---
Nurse's Notes [facility] Name: Jimenez Patrick Age: 28 yrs Sex: Male : 1995 Arrival Date: 12/09/2023 Time: 10:01 Bed 7 Private MD: Farzad Rahman Diagnosis: Upper abdominal pain, unspecified;Other chronic pancreatitis Presentation: 12/08 10:14 Chief complaint: Patient states: Abdominal pain with nausea started within the past ll1 hour. No fever. Coronavirus screen: Client denies travel out of the [place] in the last 14 days. At this time, the client does not indicate any symptoms associated with coronavirus-19. Ebola Screen: Patient denies travel to an Ebola-affected area in the 21 days before illness onset. Initial Sepsis Screen: Does the patient meet any 2 criteria? No. Patient's initial sepsis screen is negative. Does the patient have a suspected source of infection? No. Patient's initial sepsis screen is negative. Risk Assessment: Do you want to hurt yourself or someone else? Patient reports no desire to harm self or others. Onset of symptoms was December 09, 2023. 10:14 Method Of Arrival: Ambulatory ll1 10:14 Acuity: MOSES 3 ll1 Triage Assessment: 10:15 General: Appears uncomfortable, Behavior is calm, cooperative, appropriate for age. ll1 Pain: Complains of pain in abdomen Pain currently is 7 out of 10 on a pain scale. Quality of pain is described as aching. GI: Reports lower abdominal pain, upper abdominal pain, nausea. Historical: - Allergies: 10:14 NKA; ll1 - PMHx: 10:14 Chronic Pancreatitis; Diabetes - IDDM; Hypertensive disorder; ll1 - PSHx: 10:14 Cholecystectomy; I\T\D; stents x 2 in pancreas; ll1 - Immunization history:: Adult Immunizations up to date. - Infectious Disease History:: Denies. - Social history:: Smoking status: Reported history of juuling and/or vaping. Patient denies any tobacco usage or history of. - Family history:: not pertinent. - Hospitalizations: : No recent hospitalization is reported. Screenin:[facility] ED Fall Risk Assessment (Adult) History of falling in the last 3 months, ko1 including since admission No falls in past 3 months (0 pts) Confusion or Disorientation No (0 pts) Intoxicated or Sedated No (0 pts) Impaired Gait No (0 pts) Mobility Assist Device Used No (0 pt) Altered Elimination No (0 pt) Score/Fall Risk Level 0 - 2 = Low Risk Oriented to surroundings, Maintained a safe environment, Educated pt \T\ family on fall prevention, incl call for assistance when getting out of bed, Assessed \T\ reinforced patient's understanding of fall precautions, Provided non-skid footwear, Hourly rounding (assess needs \T\ fall precautionary measures) done, Used ambulatory aids as needed (educated on \T\ assisted with), Used gait belt as appropriate. Abuse screen: Denies threats or abuse. Denies injuries from another. Nutritional screening: No deficits noted. Tuberculosis screening: No symptoms or risk factors identified. Assessment: 10:25 General: Appears in no apparent distress. Behavior is calm, cooperative, appropriate ko1 for age. Pain: Complains of pain in abdomen. Neuro: No deficits noted. Cardiovascular: No deficits noted. Respiratory: No deficits noted. GI: Bowel sounds present X 4 quads. Abd is soft and non tender X 4 quads. : No deficits noted. EENT: No deficits noted. Derm: No signs and/or symptoms reported regarding the dermatologic system. Musculoskeletal: No deficits noted. Vital Signs: 10:14 BP 161 / 101; Pulse 67; Resp 18; Temp 97.6; Pulse Ox 96% on R/A; Weight 95.25 kg; ll1 Height 5 ft. 9 in. ; Pain 7/10; 11:05 BP 141 / 87; Pulse 68; Resp 14; Pulse Ox 99% ; ko1 11:07 BP 141 / 90; Pulse 71; Resp 17; Pulse Ox 97% on R/A; ap3 11:40 BP 139 / 97; Pulse 63; Resp 14; Pulse Ox 99% ; ko1 10:14 Body Mass Index 31.01 (95.25 kg, 175.26 cm) ll1 10:14 Pain Scale: Adult ll1 ED Course: 10:03 Patient arrived in ED. mr 10:03 Farzad Rahman DO is Private Physician. mr 10:05 Dontrell Dunlap MD is Attending Physician. rn 10:08 Arm band placed on Patient placed in an exam room, on a stretcher. hb 10:15 Triage completed. ll1 10:17 Warm blanket given. Pillow given. ll1 10:18 Dominique Huitron, RN is Primary Nurse. ko1 10:25 Patient has correct armband on for positive identification. Bed in low position. Call ko1 light in reach. Side rails up X 1. Pulse ox on. NIBP on. 10:25 No provider procedures requiring assistance completed. Initial lab(s) drawn, by co, ko1 sent to lab. Inserted saline lock: 20 gauge in right antecubital area, using aseptic technique. Blood collected. : CBC with Diff Sent. ko1 10: CMP Sent. ko1 : Lipase Sent. ko1 12:04 Provided Education on: na. ko1 12: IV discontinued, intact, bleeding controlled, No redness/swelling at site. Pressure ko1 dressing applied. Administered Medications: :28 Drug: NS 0.9% IV 1000 ml IV at 1 bolus Per protocol; 1000 mL bolus Route: IV; Rate: 1 ko1 bolus; Site: right antecubital; 12:00 Follow up: Response: No adverse reaction; IV Status: Completed infusion; IV Intake: ko1 1000ml 10:28 Drug: Ondansetron IVP 4 mg IVP once; over 2 minutes Route: IVP; Site: right antecubital;ko1 10:45 Follow up: Response: No adverse reaction ko1 10:28 Drug: morphine IVP or IV 4 mg IVP once over 4 mins Route: IVP; Infused Over: 4 mins; ko1 Site: right antecubital; 10:45 Follow up: Response: No adverse reaction; Pain is decreased ko1 11:16 Drug: fentaNYL (PF) IVP 50 mcg IVP once Route: IVP; Site: right antecubital; ko1 11:35 Follow up: Response: No adverse reaction; Pain is decreased ko1 Medication: 10:25 VIS not applicable for this client. ko1 Intake: 12:00 IV: 1000ml; Total: 1000ml. ko1 Outcome: 11:55 Discharge ordered by . rn 12:04 Discharged to home ambulatory, with family, ko1 12:04 Condition: stable 12:04 Discharge instructions given to patient, family, Instructed on discharge instructions, follow up and referral plans. medication usage, Demonstrated understanding of instructions, follow-up care, medications, Prescriptions given X 2, 12:05 Patient left the ED. ko1 Signatures: Sofía Cherry, Julito Vila mr Germán, MD MD mariluz Jon Heather RN RN Dorie Monzon RN RN ap3 Ramiro Gregory RN RN ll1 Dominique Huitron RN RN ko1
[2023-12-09 12:20] VITALS: TEMP 97.6
[2023-12-09 12:54] VITALS: BP 139/97; O2SAT 99
== END 2023-12-09 12:05 | disposition home or self-care (01) ==
LOC: ER 10:01
DX: K86.1 Other chronic pancreatitis (principal); I10 Essential (primary) hypertension; Z96.89 Presence of other specified functional implants
CPT/HCPCS: 96361; 85025; 36415; 83690; 80053; 96375; 96374; 99284; J3010; J2405; J7030

== ENCOUNTER 2024-01-03 22:15 | Emergency (ER) | payer OTHER ==
--- OUTSIDE RECORDS SUMMARY | 2024-01-03 22:20 | XMS REPORT | Continuity of Care Document ---
Author Name Unknown Address [address] [facility] [place] [address] [facility] Address [address] [facility] [address] [place] [address] Care Team Providers Care Embedded Developer Name Role Phone PCP, PATIENT DOES NOT HAVE A Primary Care Physic adry Unavailable BROOKLYNN AGUILAR Attending Clinician Unavailable NANCY WEST Attending Clinician UnavailMICHAEL Nogueira Attending Clinician Unavailable GENESIS MONTGOMERY Attending Clinician Unavailab le LAB90 Attending Clinician Unavailable Jenelle REYES, Nabil Basurto Attending Clinician Unavail able LAZARO HUNTER Attending Clinician Unavailable Augustin Kincaid Attending Clinician [phone] Esa Ko DO Attending Clinician [phone] Lazaro Hunter MD Attending Clinician [phone] Syeda Alberts Attending Clinician [phone] SYEDA PERSAUD Attending Clinician Unavailable Doctor Unassigned, [place] Attending Clinician U LAZAOR Jolly Admitting Clinician Unavailable Lazaro Hunter MD Admitting Clinician [phone] Payers Payer Name Policy Type Policy Number Effective Date Expirati on Date Source [employer] MP [facility] [employer] 94 ON 9 [id number] 2023 00:00:00 Problems Condition Name Condition Details [...] pancreatit is Disease Active 09-12 00:00: 00 [facility] Epigastric pain Epigastric pain Disease Active 09-11 00:00: 00 [facility] Obesity (BMI 30-39.9) Obesity (BMI 30-39.9) Disease Active 04-16 00:00: 00 [facility] Mesenteric adenitis Mesenteric adenitis Disease Active 2009-09 00:00: 00 [facility] Pancreatit is Pancreatit is Disease Active 2009-09 00:00: 00 [facility] Abdominal pain Abdominal pain Disease Active 2009-09 00:00: 00 [facility] Other acne Other acne Disease Active 04-13 00:00: 00 [facility] Viral warts Viral warts Disease Active 04-13 00:00: 00 Overview: Formattin g of this note might be different from the original. 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 [facility] Allergies, Adverse Reactions, Alerts Allergy Name Allergy Type Status Severity Reaction(s) Onset Date Inactive Date Treating Clinician Comments Source NO KNOWN ALLERGIE S [facility] Social History Social Habit Start Date Stop Date Quantity Comments Source History SDOH Social Connections Get Together [facility] History SDOH Social Connections Rastafarian [facility] History SDOH Social Connections Membership [facility] History SDOH Social Connections Meetings [facility] Sexual orientation Nicolasa Knowles - External History [...] MPS 2022-09-13 00:00:00 2022-09-13 00:00:00 3 [facility] History SDOH Financial 2022-09-13 00:00:00 2022-09-13 00:00:00 5 [facility] History SDOH Food Worry 2022-09-13 00:00:00 2022-09-13 00:00:00 1 [facility] History SDOH Food Scarcity 2022-09-13 00:00:00 2022-09-13 00:00:00 1 [facility] History SDOH Transport Med 2022-09-13 00:00:00 2022-09-13 00:00:00 2 [facility] History SDOH Transport Non-Med 2022-09-13 00:00:00 2022-09-13 00:00:00 2 [facility] History SDOH Alcohol Frequency 2022-09-13 00:00:00 2022-09-13 00:00:00 1 [facility] History SDOH Alcohol Std Drinks 2022-09-13 00:00:00 2022-09-13 00:00:00 0 [facility] History SDOH Alcohol Binge 2022-09-13 00:00:00 2022-09-13 00:00:00 1 [facility] History SDOH Social Connections Phone 2022-09-13 00:00:00 2022-09-13 00:00:00 5 [facility] History SDOH Social Connections Living 2022-09-13 00:00:00 2022-09-13 00:00:00 5 [facility] History SDOH Physical Activity DPW 2022-09-13 00:00:00 2022-09-13 00:00:00 4 [facility] Exposure to SARS-CoV-2 (event) 2022-09-01 00:00:00 2022-09-11 13:58:00 Not sure [facility] Sex Assigned At 1995 00:00:00 1995 00:00:00 Parvin Knowles - [place] Smoking Status Start Date Stop Date Source Occasional tobacco smoker 2023-10-06 00:00:00 Parvin Knowles - External Ex-smoker 2022-09-12 00:00:00 2022-09-12 00:00:00 [facility] Ordered Medication Name Filled Medication Name Start Date Stop Date Current Medication? Ordering Clinician Indication Dosage Frequency Signature (SIG) Comments Components Source Sertraline HCl 25 MG oral Tablet - 00:00: 00 Yes [id number] 25mg Take 1 tablet (25 mg total) by mouth daily. Parvin Knowles - Externa l Insulin Glargine (Basaglar KwikPen) 100 UNIT/ML subcutaneou s Solution Pen-injecto r 11-28 00:00: 00 Yes [id number] 9101 42U Inject 42 units into the skin daily (with breakfast) 40 units sc daily. Parvin siegel Continuous Blood Gluc Sensor (Dexcom G6 Sensor) does not apply Misc 11-28 00:00: 00 Yes [id number] Check BS continuous ly. Parvin siegel Continuous Blood Gluc Transmit (Dexcom G6 Transmitter ) does not apply Misc 11-28 00:00: 00 Yes [id number] Check BS continousl y. Parvin siegel Continuous Blood Gluc Cork Insulation Setter (Dexcom G6 Cork Insulation Setter) does not apply Device 11-28 00:00: 00 Yes [id number] Check BS continuous ly. Parvin siegel Mirtazapine 15 MG oral Tablet 11-17 00:00: 00 11-28 00:00 :00 No 15mg Take 1 tablet (15 mg total) by mouth nightly. Parvin siegel Insulin Pen Needle (BD Pen Needle Connie 2nd Gen) 32G X 4 MM does not apply Misc 10-28 00:00: 00 Yes [id number] 9101 Use as directed. Parvin siegel Metoprolol Tartrate (LOPRESSOR) 25 MG oral Tablet 10-27 00:00: 00 11-28 00:00 :00 No [id number] 25mg Take 1 tablet (25 mg total) by mouth daily. Parvin siegel Insulin Glargine (Basaglar KwikPen) 100 UNIT/ML subcutaneou s Solution Pen-injecto r 10-27 00:00: 00 11-28 00:00 :00 No [id number] 9101 40 units sc daily. Parvin siegel Insulin NPH Isophane & Regular (NOVOLIN 70/30 SC) 10-06 10:25: 45 10-06 00:00 :00 No 60U Inject 60 units into the skin daily. Parvin siegel Metoprolol Tartrate (LOPRESSOR) 25 MG oral Tablet 10-06 00:00: 00 Yes [id number] 25mg Take 1 tablet (25 mg total) by mouth daily. Parvin siegel Insulin Glargine (Basaglar KwikPen) 100 UNIT/ML subcutaneou s Solution Pen-injecto r 10-06 00:00: 00 Yes [id number] 9101 40 units sc daily. Parvin siegel Continuous Blood Gluc Cork Insulation Setter (Dexcom G6 Cork Insulation Setter) does not apply Device 10-06 00:00: 00 Yes [id number] Check BS continuous ly. Parvin siegel Continuous Blood Gluc Sensor (Dexcom G6 Sensor) does not apply Misc 10-06 00:00: 00 Yes [id number] Check BS continuous ly. Parvin siegel Continuous Blood Gluc Transmit (Dexcom G6 Transmitter ) does not apply Misc 10-06 00:00: 00 Yes [id number] Check BS continousl y. Parvin siegel Continuous Blood Gluc Cork Insulation Setter (Dexcom G6 Cork Insulation Setter) does not apply Device 10-06 00:00: 00 11-28 00:00 :00 No [id number] Check BS continuous ly. Parvin Llanosa l Continuous Blood Gluc Sensor (Dexcom G6 Sensor) does not apply Misc 10-06 00:00: 00 11-28 00:00 :00 No [id number] Check BS continuous ly. Parvin Llanosa l Continuous Blood Gluc Transmit (Dexcom G6 Transmitter ) does not apply Misc 10-06 00:00: 00 11-28 00:00 :00 No [id number] Check BS continousl y. Parvin siegel Gabapentin 100 MG oral Capsule 10-06 00:00: 00 11-28 00:00 :00 No [id number] 100mg Q.[id number] 3D Take 1 capsule (100 mg total) [...] (two) times daily before breakfast and dinner. [facility] insulin NPH and regular human 70-30 (NOVOLIN 70/30 U-100 INSULIN) 100 unit/mL (70-30) injection 09-14 00:00: 00 Yes [id number] 60U inject 60 Units under the skin 2 (two) times daily before breakfast and dinner. [facility] atorvastati n 40 mg tablet 09-14 00:00: 00 10-15 05:59 :00 No [id number] 40mg Take 1 tablet by mouth at bedtime for 30 days. [facility] lisinopriL 10 mg tablet 09-14 00:00: 00 10-15 05:59 :00 No [id number] 10mg Take 1 tablet by mouth in the morning and 1 tablet in the evening. Do all this for 30 days. [facility] morpHINE (4 mg/mL) injection 4 mg 09-13 09:53: 10 Yes 4mg 4 mg, Slow IV Push, Q4HPRN, Starting on 09/13/22 at 0353, Until Discontinu ed, Routine, Pain (scale 7-10) [facility] atorvastati n (LIPITOR) tablet 40 mg 09-13 03:00: 00 Yes 40mg 40 mg, Oral, QHS, First dose on Tue09/12/22 at 2100, Until Discontinu ed, Routine [facility] lisinopriL (PRINIVIL,Z ESTRIL) tablet 10 mg 09-12 14:45: 00 Yes 10mg 10 mg, Oral, BID, First dose (after last modificati on) on 09/12/22 at 0845, Until Discontinu ed, Routine [facility] KCL (KLOR-CON M20) tablet 40 mEq 09-12 13:45: 00 09-12 14:15 :00 No 40meq 40 mEq, Oral, ONCE, 1 dose, On 09/12/22 at 0745, Routine [facility] potassium chloride in water 10 mEq/100 mL RTU 10 mEq 09-12 13:00: 00 09-12 16:20 :00 No 10meq 10 mEq, IV Piggyback, Q1H, 2 doses, First dose on 09/12/22 at 0700, Last dose on Tue09/12/22 at 0800, Administer over 60 Minutes, 100 mL [facility] lisinopri[facility] (PRINIVIL,Z ESTRIL) tablet 5 mg 09-12 05:00: 00 09-12 14:35 :46 No 5mg 5 mg, Oral, BID, First dose on 09/11/22 at 2300, Until Discontinu ed, [facility] lactated ringers IV infusion 1,000 mL 09-12 03:15: 00 Yes 1000mL at 150 mL/hr, 1,000 mL, IV Infusion, CONTINUOUS , Starting on 09/11/22 at 2115, Until Discontinu ed, Routine [facility] Sliding Scale Insulin - Lispro (HumaLOG) + Fsbg Testing 09-11 23:00: 00 Yes Subcutaneo us, TID MEALS+HS, First dose on 09/11/22 at 1700, Until Discontinu ed, [facility]ine [facility] enoxaparin (LOVENOX) injection 40 mg 09-11 23:00: 00 Yes 40mg 40 mg, Subcutaneo us, DAILY, First dose on 09/11/22 at 1700, Until Discontinu ed, Routine [facility] lactated ringers IV infusion 1,000 mL 09-11 19:15: 00 09-12 03:05 :27 No 1000mL at 125 mL/hr, 1,000 mL, IV Infusion, CONTINUOUS , Starting on 09/11/22 at 1315, Until 09/11/22 at 2105, Routine [facility] lactated ringers IV infusion 1,000 mL 09-11 19:00: 00 09-11 19:56 :58 No 1000mL at 999 mL/hr, 1,000 mL, Intravenou s, ONCE, 1 dose, On 09/11/22 at 1300, Routine [facility] NaCl 0.9% (NS) IV infusion 1,000 mL 09-11 18:15: 00 09-11 19:00 :00 No 1000mL at 999 mL/hr, Intravenou s, ONCE, 1 dose, On 09/11/22 at 1215, [facility] FENTanyl PF (SUBLIMAZE (PF)) injection 50 mcg 09-11 18:05: 00 09-11 18:10 :00 No 50ug 50 mcg, Slow IV Push, ONCE, 1 dose, On 09/11/22 at 1215, [facility] ondansetron (ZOFRAN (PF)) injection 4 mg 09-11 18:05: 00 09-11 18:09 :00 No 4mg 4 mg, Slow IV Push, ONCE, 1 dose, On 09/11/22 at 1215, [facility] glucagon (GLUCAGEN DIAGNOSTIC KIT) injection 1 mg 09-11 18:04: 12 Yes 1mg 1 mg, Intramuscu lar, PRN, Starting on 09/11/22 at 1204, Until Discontinu ed, MARITA, Blood Glucose < or = 70 mg/dL and patient is unable to swallow or has mental changes. [facility] dextrose 50 % in water (D50W) injection 25 mL 09-11 18:04: 12 Yes 25mL 25 mL, Slow IV Push, PRN, Starting on 09/11/22 at 1204, Until Discontinu ed, MARITA, Blood Glucose < or = 70 mg/dL and patient is unable to swallow or has mental status changes. [facility] ondansetron (ZOFRAN (PF)) injection 4 mg 09-11 18:04: 03 Yes 4mg 4 mg, Slow IV Push, Q6HPRN, Starting on 09/11/22 at 1204, Until Discontinu ed, Routine, Nausea and Vomiting (N/V) [facility] morpHINE (2 mg/mL) injection 2 mg 09-11 18:03: 52 09-12 18:02 :52 No 2mg 2 mg, Slow IV Push, Q4HPRN, Starting on 09/11/22 at 1203, Until 09/12/22 at 1202, Routine, Pain (scale 7-10) [facility] HYDROcodone -acetaminop hen (NORCO 5) 5-325 mg tablet 1 tablet 09-11 18:03: 48 09-13 18:02 :48 No 1{tbl} 1 tablet, Oral, Q6HPRN, Starting on 09/11/22 at 1203, Until 09/13/22 at 1202, Routine, Pain (scale 4-6) [facility] acetaminoph en (TYLENOL) tablet 650 mg 09-11 18:03: 39 Yes 650mg 650 mg, Oral, Q6HPRN, Starting on 09/11/22 at 1203, Until Discontinu ed, Routine, Pain (scale 1-3) [facility] insulin NPH and regular human 70-30 (70-30 U-100 INSULIN) 100 unit/mL (70-30) injection 60 Units 09-11 18:03: 00 09-11 18:54 :00 No 60U 60 Units, Subcutaneo us, ONCE, 1 dose, On 09/11/22 at 1215, MARITA [facility] FENTanyl PF (SUBLIMAZE (PF)) injection 50 mcg 09-11 16:38: 00 09-11 16:41 :00 No 50ug 50 mcg, Slow IV Push, ONCE, 1 dose, On 09/11/22 at 1045, [facility] iopamidol (ISOVUE 370-500 mL) injection 78 mL 09-11 16:35: 00 09-11 16:45 :00 No [id number] 78mL 78 mL, Intravenou s, ONCE, 1 dose, On 09/11/22 at 1045, Routine [facility] ondansetron (ZOFRAN (PF)) injection 4 mg 09-11 15:45: 00 09-11 15:50 :00 No [id number] 4mg 4 mg, Slow IV Push, ONCE, 1 dose, On 09/11/22 at 0945, [facility] famotidine (PEPCID (PF)) injection 20 mg 09-11 15:45: 00 09-11 15:50 :00 No [id number] 20mg 20 mg, Slow IV Push, ONCE, 1 dose, On 09/11/22 at 0945, [facility] NaCl 0.9% (NS) IV infusion 1,000 mL 09-11 15:33: 00 09-11 17:00 :00 No [id number] 1000mL at 999 mL/hr, Intravenou s, ONCE, 1 dose, On 09/11/22 at 0945, [facility] sodium chloride (NS) injection 5 mL 09-11 15:32: 59 Yes [id number] 5mL 5 mL, Intravenou s, PRN, Starting on 09/11/22 at 0932, Until Discontinu ed, Routine, IV line flushing [facility] maalox:diph enhydrAMINE :lidocaine 2 % viscous 1:1:1 (FIRST-MOUT HWASH BLM) oral suspension 15 mL 11-08 20:45: 00 11-08 20:39 :00 No 15mL 15 mL, Oral, ONCE, 1 dose, 11/08/20 at 1445, [facility] insulin regular human (HUMULIN R) injection 9 Units 11-08 20:30: 00 11-08 19:39 :00 No 9U 9 Units, Slow IV Push, ONCE, 1 dose, 11/08/20 at 1430, STAT [facility] ondansetron (ZOFRAN (PF)) injection 4 mg 11-08 19:45: 00 11-08 18:49 :00 No 4mg 4 mg, Slow IV Push, ONCE, 1 dose, 11/08/20 at 1345, [facility] morpHINE injection 4 mg 11-08 19:45: 00 11-08 18:49 :00 No 4mg 4 mg, Slow IV Push, ONCE, 1 dose, 11/08/20 at 1345, [facility] NaCl 0.9% (NS) bolus infusion 1,000 mL 11-08 19:30: 00 11-08 20:37 :00 No 1000mL at 999 mL/hr, 1,000 mL, IV Infusion, ONCE, 1 dose, 11/08/20 at 1330, [facility] NaCl 0.9% (NS) bolus infusion 1,000 mL 11-08 18:30: 00 11-08 19:39 :00 No 1000mL at 999 mL/hr, 1,000 mL, IV Infusion, ONCE, 1 dose, 11/08/20 at 1230, [facility] ondansetron (ZOFRAN ODT) 4 mg disintegrat ing tablet 11-08 00:00: 00 09-11 00:00 :00 No [id number] 4mg Take 1 tablet by mouth every 8 (eight) hours as needed for Nausea and Vomiting (N/V). [facility] dicyclomine 20 mg tablet 11-08 00:00: 00 09-11 00:00 :00 No [id number] 20mg Take 1 tablet by mouth 4 (four) times daily as needed for Abdominal pain. [facility] No known medications No Un brendan [facility] Vital Signs Vital Name Observation [...] Systolic blood pressure 2022-09-14 17:21:00 130 mm[facility]Hg[facility] Diastolic blood pressure 2022-09-14 17:21:00 93 mm[Hg[facility] Heart rate 2022-09-14 17:21:00 87 /min [facility] Body temperature 2022-09-14 17:21:00 35.56 Zenaida [facility] Respiratory rate 2022-09-14 17:21:00 18 /min [facility] Oxygen saturation in Arterial blood by Pulse oximetry 2022-09-14 17:21:00 98 /min [facility] Body weight 2022-09-14 09:02:00 98.476 kg [facility] BMI 2022-09-14 09:02:00 32.06 kg/m2 [facility] Body height 2022-09-11 19:14:00 175.3 cm [facility] Systolic blood pressure 2020-11-08 21:00:00 136 mm[Hg] [facility] Diastolic blood pressure 2020-11-08 21:00:00 95 mm[Hg] [facility] Heart rate 2020-11-08 21:00:00 93 /min [facility] Respiratory rate 2020-11-08 21:00:00 16 /min [facility] Oxygen saturation in Arterial blood by Pulse oximetry 2020-11-08 21:00:00 98 /min [facility] Body temperature 2020-11-08 18:12:00 36.44 Zenaida [facility] Body height 2020-11-08 18:12:00 175.3 cm [facility] Body weight 2020-11-08 18:12:00 92.987 kg [facility] BMI 2020-11-08 18:12:00 30.27 kg/m2 [facility] Procedures Procedure Date / Time Performed Performing Clinician Source POCT GLUCOSE (AUTOMATED) 2022-09-14 17:22:00 Lazaro Hunter [facility] LIPASE 2022-09-14 11:57:[address] [facility] BASIC METABOLIC PANEL (NA, K, CL, CO2, GLUCOSE, BUN, CREATININE, CA) 2022-09-14 11:57:00 Michael Jung [facility] LIPID PANEL (81340)(TOTAL CHOLESTEROL, TRIGLYCERIDES, HDL) 2022-09-14 11:57:00 Michael Jung [facility] CBC WITH DIFF 2022-09-14 11:57:00 Michael Jung [facility] POCT GLUCOSE (AUTOMATED) 2022-09-14 02:35:00 Ovesteban [facility] POCT GLUCOSE (AUTOMATED) 2022-09-13 22:59:00 Elsa [facility] POCT GLUCOSE (AUTOMATED) 2022-09-13 17:43:00 Elsa [facility] POCT GLUCOSE (AUTOMATED) 2022-09-13 13:30:00 Elsa [facility] BASIC METABOLIC PANEL (NA, K, CL, CO2, GLUCOSE, BUN, CREATININE, CA) 2022-09-13 09:26:00 Emy Hyde [facility] POCT GLUCOSE (AUTOMATED) 2022-09-12 22:34:00 Elsa [facility] POCT GLUCOSE (AUTOMATED) 2022-09-12 17:15:00 [facility] POCT GLUCOSE (AUTOMATED) 2022-09-12 13:44:00 Elsa [facility] MAGNESIUM 2022-09-12 09:07:00 Elsa [facility] HEPATIC FUNCTION PANEL ([id number]) (ALB,T.PRO,BILI T,BU/BC,ALT,AST,ALK PHOS) 2022-09-12 09:07:00 Elsa [facility] BASIC METABOLIC PANEL (NA, K, CL, CO2, GLUCOSE, BUN, CREATININE, CA) 2022-09-12 09:07:00 Emy Hyde [facility] LIPID PANEL ([id number])(TOTAL CHOLESTEROL, TRIGLYCERIDES, HDL) 2022-09-12 09:07:00 Elsa [facility] CBC WITH DIFF 2022-09-12 09:07:00 Emy Hyde [facility] POCT GLUCOSE (AUTOMATED) 2022-09-12 09:01:00 Esa Ko [facility] POCT GLUCOSE (AUTOMATED) 2022-09-12 02:38:00 Esa Ko [facility] POCT GLUCOSE (AUTOMATED) 2022-09-11 22:42:00 Maikel [facility] POCT GLUCOSE (AUTOMATED) 2022-09-11 18:57:00 Mateus [facility] POCT GLUCOSE(AGE >30DAYS) 2022-09-11 17:22:00 Mateus [facility] POCT GLUCOSE (AUTOMATED) 2022-09-11 17:21:00 Mateus [facility] CT ABDOMEN PELVIS W CONTRAST 2022-09-11 16:38:00 Mateus [facility] POCT GLUCOSE (AUTOMATED) 2022-09-11 15:59:00 Mateus [facility] LIPASE 2022-09-11 15:48:00 Mateus [facility] COMP. METABOLIC PANEL ([id number]) 2022-09-11 15:48:00 Mateus [facility] CBC WITH DIFF 2022-09-11 15:48:00 Mateus [facility] GLYCOSYLATED HEMOGLOBIN (A1C) 2022-09-11 15:48:00 Maikel [facility] URINALYSIS 2022-09-11 15:46:00 Mateus [facility] CONSENT/REFUSAL FOR DIAGNOSIS AND TREATMENT 2022-09-11 15:16:37 Doctor Unassigned, [place] [facility] POCT GLUCOSE (AUTOMATED) 2020-11-08 20:26:00 Ramses [facility] LIPASE 2020-11-08 18:29:00 [facility]CTION PANEL ([id number]) (ALB,T.PRO,BILI T,BU/BC,ALT,AST,ALK PHOS) 2020-11-08 18:29:00 [facility] (NA, K, CL, CO2, GLUCOSE, BUN, CREATININE, CA) 2020-11-08 18:29:00 Syeda Persaud [facility] CBC WITH DIFF 2020-11-08 18:29:[address] [facility] URINALYSIS 2020-11-08 18:29:00 Syeda Persaud [facility] NOTICE OF PRIVACY PRACTICES 2020-11-08 18:06:16 Doctor Unassigned, [place] [facility] CONSENT/REFUSAL FOR DIAGNOSIS AND TREATMENT 2020-11-08 18:06:04 Doctor Unassigned, [place] [facility] Encounters Start Date/Time End Date/Time Encounter Type Admission Type Attending [facility] Facility Care Department Encounter ID Source 2021-09-30 12:34:38 Outpatient [facility] [id number] [facility] 2024-02-21 15:30:00 2024-02-21 15:30:00 Outpatient BROOKLYNN AGUILAR [id number] [facility] 2024-01-23 14:15:00 2024-01-23 14:15:00 [facility] WE[facility] [id number] [facility] 10:30:00 2024-01-09 10:30:00 Outpatient MICHAEL BRAVO [id number] [facility] 2023-12-30 15:30:00 2023-12-30 15:30:00 Outpatient MICHAEL BRAVO [id number] [facility] 2023-12-27 16:30:00 2023-12-27 16:30:00 Outpatient PARVIN HERNÁNDEZ [id number] [facility]23-12-21 00:00:00 2023-12-21 00:00:00 Outpatient MICHAEL BRAVO [id number] [facility] 2023-12-13 00:00:00 2023-12-13 00:00:00 [facility] [id number] [facility] 00:00:00 2023-12-05 00:00:00 Outpatient PREZAS, MICHAEL HERNÁNDEZ PARVIN [id number] [facility] 2023-11-29 10:30:00 2023-11-29 10:30:00 Outpatient PREZAS, MICHAEL HERNÁNDEZ PARVIN [id number] [facility] 2023-11-28 14:00:00 2023-11-28 14:00:00 Outpatient GENESIS MONTGOMERY PARVIN [id number] [facility] 2023-11-28 00:00:00 2023-11-28 00:00:00 Outpatient PREZAS, MICHAEL HERNÁNDEZ PARVIN [id number] [facility] 2023-11-07 00:00:00 2023-11-07 00:00:00 Outpatient PREZAS, MICHAEL HERNÁNDEZ PARVIN [id number] [facility] 2023-10-27 00:00:00 2023-10-27 00:00:00 Outpatient PREZAS, MICHAEL HERNÁNDEZ PARVIN [id number] [facility] 2023-10-26 00:00:00 2023-10-26 00:00:00 Outpatient PREZAS, MICHAEL HERNÁNDEZ PARVIN [id number] [facility] 2023-10-26 00:00:00 2023-10-26 00:00:00 Outpatient PREZAS, MICHAEL HERNÁNDEZ PARVIN [id number] [facility] 2023-10-19 16:45:00 2023-10-19 16:45:00 Outpatient PREZAS, MICHAEL PARVIN HERNÁNDEZ [id number] [facility] 2023-10-18 14:30:00 2023-10-18 14:30:00 Outpatient PARVIN HERNÁNDEZ [id number] [facility] 2023-10-10 00:00:00 2023-10-10 00:00:00 Outpatient PREZAS, MICHAEL PARVIN HERNÁNDEZ [id number] [facility] 2023-10-07 00:00:00 2023-10-07 00:00:00 Outpatient PREZAS, MICHAEL PARVIN HERNÁNDEZ [id number] [facility] 2023-10-06 10:45:00 2023-10-06 10:45:00 Outpatient LAB90 PARVIN HERNÁNDEZ [id number] Parvin Knowles 2023-10-06 09:30:00 2023-10-06 09:30:00 Outpatient MICHAEL BRAVO [id number] [facility] 2023-08-24 10:15:00 2023-08-24 10:15:00 Outpatient MICHAEL BRAVO PARVIN [id number] [facility] 2022-09-15 00:00:00 2022-09-15 00:00:00 Transition of Care Nabil Almanzar LISA ROUSE [id number] [facility] 2022-09-11 09:26:00 2022-09-14 13:00:00 Inpatient X [facility] [id number] [facility] 2022-09-11 09:26:00 2022-09-14 13:00:00 Hospital Encounter Augustin Ignacio [place], Jelani [facility] [id number] [facility] 2020-11-08 12:16:00 2020-11-08 15:38:00 Emergency Ramses Syeda [facility] [id number] [facility] 2020-11-08 12:06:00 2020-11-08 12:06:00 Emergency X PERSAUD SYEDA [facility] E[facility] [id number] [facility] [facility] 2020[facility]08 00:00:00 2020-11-08 00:00:00 Orders Only Doctor Unassigned, [place] [facility] [id number] [facility] Results Test Description Test Time Test Comments Results Result Co mments Source [facility] GLUCOSE (AUTOMATED)2022-09-14 02:40:24* Test Item Value Reference Range Interpretation Comme nts POCT GLU (test code = 2301047942) 191 mg/dL 70-110 H Lab Interpretation (test cod e = 93296-9) Abnormal [facility] GLUCOSE (AUTOMATED)2022-09-13 23:13:20* Test Item Value Reference Range Interpretation Comme nts POCT GLU (test code = 8334716226) 126 mg/dL 70-110 H Lab Interpretation (test cod e = 88343-1) Abnormal [facility] GLUCOSE (AUTOMATED)2022-09-13 17:51:10* Test Item Value Reference Range Interpretation Comme nts POCT GLU (test code = 5934963703) 270 mg/dL 70-110 H Lab Interpretation (test cod e = 73737-8) Abnormal [facility] GLUCOSE (AUTOMATED)2022-09-13 14:08:01* Test Item Value Reference Range Interpretation Comme nts POCT GLU (test code = 2081914793) 177 mg/dL 70-110 H Lab Interpretation (test cod e = 35525-1) Abnormal [facility] GLUCOSE (AUTOMATED)2022-09-12 22:53:55* Test Item Value Reference Range Interpretation Comme nts POCT GLU (test code = 5963875248) 207 mg/dL 70-110 H Lab Interpretation (test cod e = 88579-1) Abnormal [facility] GLUCOSE (AUTOMATED)2022-09-12 18:09:02* Test Item Value Reference Range Interpretation Comme nts POCT GLU (test code = 5440299511) 92 mg/dL 70-110 Lab Interpretation (test cod e = 05723-5) [facility]TOTAL CHOLESTEROL, TRIGLYCERIDES, HDL)2022-09-12 14:58:08* Test Item Value Reference Range Interpretation Comme nts CHOL (test code = 2689373398) 138 mg/dL 120-200 HDL (test code = 4079649457) 23 mg/dL See_Comment L [Automated [employer]SA[employer] ge] The system which generated this result transmitted reference range: >=40. The reference range was not used to interpret this result as normal/abnormal. HDLC RATIO (test code = 7305909190) See_Comment H [Automated [employer]] The system which generated this result transmitted reference range: <=5.0. The reference range was not used to interpret this result as normal/abnormal. TRIG (test code = 5878251869) 171 mg/dL 30-170 H LDL CHOL (test code = 62489-0) 81 mg/dL See_Comment [Automated [employer]] The system which generated this result transmitted reference range: <=160. The reference range was not used to interpret this result as normal/abnormal. VLDL (test code = 4652936939) 34 mg/dL 5-60 Lab Interpretation (test code = 23681-4) [facility] 13:54:38* Test Item Value Reference Range Interpretation Comme nts POCT GLU (test code = 1232482246) 84 mg/dL 70-110 Lab Interpretation (test cod e = 30246-2) [facility]12537[facility] (ALB,T.PRO,BILI T,BU/BC,ALT,AST,ALK PHOS)2022-09-12 13:03:03* Test Item Value Reference Range Interpretation Comme nts TOTAL BILI (test code = 1329641885) 1.0 mg/dL 0.1-1.1 BILI UNCON (test code = 9503073909) 0.8 mg/dL 0.1-1.1 BILI CONJ (test code = 9771243208) 0.0 mg/dL 0.0-0.3 T PROTEIN (test code = 9189452126) 6.7 g/dL 6.3-8.2 ALBUMIN (test code = 9954482655) 4.0 g/dL 3.5-5.0 ALK PHOS (test code = 4664771422) 106 U/L 34-122 ALTv (test code = 1742-6) 146 U/L 5-50 H AST(SGOT) (test code = 1005423242) 81 U/L 13-40 H Lab Interpretation (test cod e = 23697-6) [facility] 13:02:43* Test Item Value Reference Range Interpretation Comme nts MAGNESIUM (test code = 7403741213) 1.8 mg/dL 1.7-2.4 Lab Interpretation (test cod e = 77760-9) Normal [facility] METABOLIC PANEL (NA, K, CL, CO2, GLUCOSE, BUN, CREATININE, CA)2022-09-12 12:10:26* Test Item Value Reference Range Interpretation Comme nts NA (test code = 9636330692) 142 mmol/L 135-145 K (test code = 7681479348) 3.1 mmol/L 3.5-5.0 L CL (test code = 2790459354) 106 mmol/L 98-108 CO2 TOTAL (test code = 9574407954) 24 mmol/L 23-31 AGAP (test code = 3729611453) 2-16 BUN (test code = 2401139407) 8 mg/dL 7-23 GLUCOSE (test code = 0406363832) 73 mg/dL 70-110 CREATININE (test code = 0818831652) 0.72 mg/dL 0.60-1.25 CALCIUM (test code = 3409340437) 8.1 mg/dL 8.6-10.6 L eGFR (test code = 2008244704) mL/min/1.73m2 RAFAEL (test code = RAFAEL) Association [...] imaging tests). Lab Interpretation (test code = 58218-1) Abnormal [facility] WITH [id number] 11:46:12* Test Item Value Reference Range Interpretation Comme nts WBC (test code = 6690-2) See_Comment [Automated [employer]] The system which generated this result transmitted reference range: 4.20 - 10.70 10*3/?L. The reference range was not used to interpret this result as normal/abnormal. RBC (test code = 789-8) See_Comment [Automated [employer]] The system which generated this result transmitted [...] 35.0 g/dL 31.2-35.0 RDW-SD (test code = 98936-5) 36.0 fL 38.5-51.6 L RDW-CV (test code = 788-0) 11.9 % 12.1-15.4 L PLT (test code = 777-3) See_Comment [Automated [employer]] The system which generated this result transmitted reference range: 150 - 328 10*3/?L. The reference range was not used to interpret this result as normal/abnormal. MPV (test code = 94404-5) 10.7 fL 9.8-13.0 NRBC/100 WBC (test code = 3172925280) See_Comment [Automated me ssage] The system which generated this result transmitted reference range: 0.0 - 10.0 /100 WBCs. The reference range was not used to interpret this result as normal/abnormal. NRBC x10^3 (test code = 8759128341) See_Comment [Automated messa ge] The system which generated this result transmitted reference range: 10*3/?L. The reference range was not used to interpret this result as normal/abnormal. GRAN MAT (NEUT) % (test code = 770-8) 50.2 % IMM GRAN % (test code = 7927615220) 0.40 % LYMPH % (test code = 736-9) 37.0 % MONO % (test code = 5905-5) 8.3 % EOS % (test code = 713-8) 3.6 % BASO % (test code = 706-2) 0.5 % GRAN MAT x10^3(ANC) (test code = 5518935450) 4.81 10*3/uL 1.99-6.95 IMM GRAN x10^3 (test code = 5061503281) 0.04 10*3/uL 0.00-0.06 LYMPH x10^3 (test code = 731-0) 3.56 10*3/uL 1.09-3.23 H MONO x10^3 (test code = 742-7) 0.80 10*3/uL 0.36-1.02 EOS x10^3 (test code = 711-2) 0.35 10*3/uL 0.06-0.53 BASO x10^3 (test code = 704-7) 0.05 10*3/uL 0.01-0.09 Lab Interpretation (test code = 05781-3) Abnormal [facility] GLUCOSE (AUTOMATED)2022-09-12 11:19:34* Test Item Value Reference Range Interpretation Comme nts POCT GLU (test code = 8353778381) 70 mg/dL 70-110 Lab Interpretation (test cod e = 86535-1) Normal [facility] GLUCOSE (AUTOMATED)2022-09-12 02:46:59* Test Item Value Reference Range Interpretation Comme nts POCT GLU (test code = 1822427132) 90 mg/dL 70-110 Lab Interpretation (test cod e = 47203-2) Normal [facility] GLUCOSE (AUTOMATED)2022-09-11 23:13:35* Test Item Value Reference Range Interpretation Comme nts POCT GLU (test code = 0109412407) 120 mg/dL 70-110 H Lab Interpretation (test cod e = 76107-3) [facility] Center[facility]cosylated Hemoglobin (A1C)2022-09-11 20:41:39* Test Item Value Reference Range Interpretation Comme nts HGB A1C (test code = 4548-4) 10.1 % 4.0-5.7 H RAFAEL (test code = RAFAEL) Reference RangesNormal: <5.7%Prediabetes: 5.7 - 6.4%Diabetes: > 6.5% Lab Interpretation (test code = 44690-3) Abnormal [facility] GLUCOSE (AUTOMATED)2022-09-11 19:01:23* Test Item Value Reference Range Interpretation Comme nts POCT GLU (test code = 6516910713) 302 mg/dL 70-110 H Lab Interpretation (test cod e = 36176-3) Abnormal [facility] GLUCOSE (AUTOMATED)2022-09-11 19:01:23* Test Item Value Reference Range Interpretation Comme nts POCT GLU (test code = 9311994874) 277 mg/dL 70-110 H Lab Interpretation (test cod e = 75819-7) Abnormal [facility] GLUCOSE (AUTOMATED)2022-09-11 19:01:23* Test Item Value Reference Range Interpretation Comme nts POCT GLU (test code = 7056163835) 283 mg/dL 70-110 H Lab Interpretation (test cod e = 83146-2) Abnormal [facility] GLUCOSE(AGE >30DAYS)2022-09-11 17:22:00* Test Item Value Reference Range Interpretation Comme nts POCT Glu (age>30days) (test code = 3342) 277 mg/dL 70-110 A Lab Interpretation (test cod e = 61913-4) [facility] Center[facility] Metabolic [id number] 16:11:48* Test Item Value Reference Range Interpretation Comme nts NA (test code = 8029505952) 137 mmol/L 135-145 K (test code = 4024341000) 4.5 mmol/L 3.5-5.0 CL (test code = 0418850373) 102 mmol/L 98-108 CO2 TOTAL (test code = 4735278006) 22 mmol/L 23-31 L AGAP (test code = 1203922839) 2-16 BUN (test code = 0006833409) 15 mg/dL 7-23 GLUCOSE (test code = 9444679871) 318 mg/dL 70-110 H CREATININE (test code = 2149341193) 0.76 mg/dL 0.60-1.25 TOTAL BILI (test code = 9805799174) 1.5 mg/dL 0.1-1.1 H CALCIUM (test code = 0591551780) 9.1 mg/dL 8.6-10.6 T PROTEIN (test code = 5752558761) 7.7 g/dL 6.3-8.2 ALBUMIN (test code = 0874703136) 5.0 g/dL 3.5-5.0 ALK PHOS (test code = 8655399006) 124 U/L 34-122 H ALTv (test code = 1742-6) 173 U/L 5-50 H AST(SGOT) (test code = 9318954860) 76 U/L 13-40 H eGFR (test code = 6235952419) mL/min/1.73m2 RAFAEL (test code = RAFAEL) Association [...] imaging tests). Lab Interpretation (test code = 33584-8) [facility]normal [facility] CenterLipase, [id number] 16:11:22* Test Item Value Reference Range Interpretation Comme nts LIPASE (test code = 9195991011) 22 U/L 0-220 Lab Interpretation (test cod e = 22974-9) [facility] CenterCB with [id number] 15:57:05* Test Item Value Reference Range Interpretation Comme nts WBC (test code = 6690-2) See_Comment H [Automated [employer]] The system which generated this result transmitted reference range: 4.20 - 10.70 10*3/?L. The reference range was not used to interpret this result as normal/abnormal. RBC (test code = 789-8) See_Comment [Automated [employer]] The system which generated this result transmitted [...] g/dL 31.2-35.0 H RDW-SD (test code = 55973-3) 35.5 fL 38.5-51.6 L RDW-CV (test code = 788-0) 11.8 % 12.1-15.4 L PLT (test code = 777-3) See_Comment [Automated messa ge] The system which generated this result transmitted reference range: 150 - 328 10*3/?L. The reference range was not used to interpret this result as normal/abnormal. MPV (test code = 59351-8) 10.3 fL 9.8-13.0 NRBC/100 WBC (test code = 4770324859) See_Comment [Automated me ssage] The system which generated this result transmitted reference range: 0.0 - 10.0 /100 WBCs. The reference range was not used to interpret this result as normal/abnormal. NRBC x10^3 (test code = 3369454771) See_Comment [Automated messa ge] The system which generated this result transmitted reference range: 10*3/?L. The reference range was not used to interpret this result as normal/abnormal. GRAN MAT (NEUT) % (test code = 770-8) 64.6 % IMM GRAN % (test code = 7667098698) 0.50 % LYMPH % (test code = 736-9) 25.3 % MONO % (test code = 5905-5) 7.3 % EOS % (test code = 713-8) 1.9 % BASO % (test code = 706-2) 0.4 % GRAN MAT x10^3(ANC) (test code = 9091206915) 7.62 10*3/uL 1.99-6.95 H IMM GRAN x10^3 (test code = 7966266419) 0.06 10*3/uL 0.00-0.06 LYMPH x10^3 (test code = 731-0) 2.98 10*3/uL 1.09-3.23 MONO x10^3 (test code = 742-7) 0.86 10*3/uL 0.36-1.02 EOS x10^3 (test code = 711-2) 0.22 10*3/uL 0.06-0.53 BASO x10^3 (test code = 704-7) 0.05 10*3/uL 0.01-0.09 Lab Interpretation (test code = 59715-4) Abnormal [facility] GLUCOSE (AUTOMATED)2020-11-08 20:30:00* Test Item Value Reference Range Interpretation Comme nts POCT GLU (test code = 2249186881) 181 mg/dL 70-110 H Lab Interpretation (test cod e = 95285-7) Abnormal [facility] Metabolic Panel (NA, K, CL, CO2, GLUCOSE, BUN, CREATININE, CA)2020-11-08 18:48:00* Test Item Value Reference Range Interpretation Comme nts NA (test code = 4869199880) 134 mmol/L 135-145 L K (test code = 3264821289) 4.0 mmol/L 3.5-5 CL (test code = 7925151903) 96 mmol/L 98-108 L CO2 TOTAL (test code = 9856716997) 29 mmol/L 23-31 AGAP (test code = 5361606342) 2-16 BUN (test code = 5171919591) 10 mg/dL 7-23 GLUCOSE (test code = 8532576046) 368 mg/dL 70-110 H CREATININE (test code = 4313390729) 0.58 mg/dL 0.6-1.25 L CALCIUM (test code = 9984291044) 9.1 mg/dL 8.6-10.6 eGFR Calculation (Non-) (test code = 5987994534) mL/min/1.73m2 eGFR Calculation () (test code = 2730088077) mL/min/1.73m2 RAFAEL (test code = RAFAEL) Association [...] imaging tests). Lab Interpretation (test code = 10685-5) [facility] (ALB, T.PRO, BILI T, BU/BC, ALT, AST, ALK PHOS)2020-11-08 18:48:00* Test Item Value Reference Range Interpretation Comme nts TOTAL BILI (test code = 1708236006) 0.8 mg/dL 0.1-1.1 BILI UNCON (test code = 8586919400) 0.8 mg/dL 0.1-1.1 BILI CONJ (test code = 1922723478) 0.0 mg/dL 0-0.3 T PROTEIN (test code = 6679492719) 7.8 g/dL 6.3-8.2 ALBUMIN (test code = 0455795900) 4.7 g/dL 3.5-5 ALK PHOS (test code = 7862746192) 147 U/L 34-122 H ALTv (test code = 1742-6) 48 U/L 5-50 AST(SGOT) (test code = 1188002475) 42 U/L 13-40 H Lab Interpretation (test cod e = 08052-5) [facility]normal [facility] CenterLipase [id number] 18:48:00* Test Item Value Reference Range Interpretation Comme nts LIPASE (test code = 2514381429) 27 U/L 0-220 Lab Interpretation (test cod e = 15730-9) [facility] CenterUrinalysis2021-03-06 18:39:00* Test Item Value Reference Range Interpretation Comme nts APPEARANCE (test code = 3726397910) Clear Clear COLOR (test code = 7935390916) Yellow Yellow PH (test code = 6217647334) 4.8-8.0 SP GRAVITY (test code = 7300605322) 1.003-1.030 H GLU U QUAL (test code = 9082061555) 500 mg/dL Normal A BLOOD (test code = 0042286990) Negative Negative KETONES (test code = 7760875734) 5 mg/dL Negative A PROTEIN (test code = 2887-8) Negative Negative UROBILIN (test code = 7210912125) Normal Normal BILIRUBIN (test code = 5875627874) Negative Negative NITRITE (test code = 1122335147) Negative Negative LEUK ALYSHA (test code = 8387487354) Negative Negative RBC/HPF (test code = 2987623120) See_Comment [Automated messa ge] The system which generated this result transmitted reference range: 0 - 3 HPF. The reference range was not used to interpret this result as normal/abnormal. WBC/HPF (test code = 1444694058) See_Comment [Automated messa ge] The system which generated this result transmitted reference range: 0 - 5 HPF. The reference range was not used to interpret this result as normal/abnormal. BACTERIA (test code = 7475204635) Negative Negative Lab Interpretation (test code = 55560-7) Abnormal [facility] with [id number] 18:36:00* Test Item Value Reference Range Interpretation [...] g/dL 31.2-35 H RDW-SD (test code = 30908-7) 33.7 fL 38.5-51.6 L RDW-CV (test code = 788-0) 11.5 % 12.1-15.4 L PLT (test code = 777-3) See_Comment H [Automated messa ge] The system which generated this result transmitted reference range: 150 - 328 10*3/?L. The reference range was not used to interpret this result as normal/abnormal. MPV (test code = 18036-1) 10.2 fL 9.8-13 NRBC/100 WBC (test code = 5098589650) See_Comment [Automated [employer] ssage] The system which generated this result transmitted reference range: 0.0 - 10.0 /100 WBCs. The reference range was not used to interpret this result as normal/abnormal. NRBC x10^3 (test code = 5481674742) <0.01 See_Comment [Automated messa ge] The system which generated this result transmitted reference range: 10*3/?L. The reference range was not used to interpret this result as normal/abnormal. GRAN MAT (NEUT) % (test code = 770-8) 60.3 % IMM GRAN % (test code = 9981608256) 0.70 % LYMPH % (test code = 736-9) 29.2 % MONO % (test code = 5905-5) 4.7 % EOS % (test code = 713-8) 3.9 % BASO % (test code = 706-2) 1.2 % GRAN MAT x10^3(ANC) (test code = 0028892649) 6.44 10*3/uL 1.99-6.95 IMM GRAN x10^3 (test code = 4972400323) 0.07 10*3/uL 0-0.06 H LYMPH x10^3 (test code = 731-0) 3.12 10*3/uL 1.09-3.23 MONO x10^3 (test code = 742-7) 0.50 10*3/uL 0.36-1.02 EOS x10^3 (test code = 711-2) 0.42 10*3/uL 0.06-0.53 BASO x10^3 (test code = 704-7) 0.13 10*3/uL 0.01-0.09 H Lab Interpretation (test code = 89491-6) Abnormal [facility]"
[2024-01-03] MEDS ORDERED: PROMETHAZINE INJ 25 MG/ML AMP ONE (22:49)
[2024-01-03 23:12] LABS: Absolute Basophils 0.1 K/uL (0-0.5); Absolute Eosinophils 0.1 K/uL (0-0.5); Absolute Lymphocytes (CBC) 0.9 K/uL (0.7-4.9); Absolute Monocytes 0.6 K/uL (0.1-1.3); Basophils % 0.5 % (0-1.3); Eosinophils % 1.1 % (0-4.4); Hemoglobin 15.3 g/dL (13.6-17.9); Lymphocytes % 8.2 % (15.3-44.8); MCH 29.2 pg (27.0-35.0); MCHC 34.9 g/dL (32.0-36.0); MCV 83.9 fL (80-100); MPV 8.7 fL (7.6-11.3); Monocytes % 5.3 % (3.3-12.3); Neutrophils % 84.9 % (41.7-73.7); Platelets 280 thou/uL (152-406); RBC Red Blood Cell Count 5.24 M/uL (4.33-5.43)
[2024-01-03 23:31] LABS: Albumin 3.7 g/dL (3.4-5.0); Anion Gap 8.1 mEq/L (5.0-15.0); Bilirubin Total 0.7 mg/dL (0.2-1.0); Globulin 3.7 g/dL (2.3-3.5); Potassium 4.1 mEq/L (3.5-5.1); Protein, Total 7.4 g/dL (6.4-8.2)
[2024-01-03] MEDS ORDERED: KETOROLAC 30 MG/ML INJ ONE (23:38)
[2024-01-03] MEDS ORDERED: LIDOCAINE VISCOUS 2% 10ML ORAL SOLN ONE (23:38)
[2024-01-03] MEDS ORDERED: MAGNES/ALUMIN/SIMET 30ML UCUP ONE (23:38)
--- NOTE | 2024-01-03 23:42 | ER ---
Nurse's Notes [facility] Name: Jimenez Patrick Age: 28 yrs Sex: Male : 1995 Arrival Date: 01/03/2024 Time: 22:15 Bed DX3 Private MD: Diagnosis: Nausea;Other chronic pancreatitis Presentation: 01/02 22:22 Chief complaint: Patient states: pt states he is having a pancreatitis flair up. as6 Coronavirus screen: At this time, the client does not indicate any symptoms associated with coronavirus-19. Ebola Screen: No symptoms or risks identified at this time. Initial Sepsis Screen: Does the patient meet any 2 criteria? No. Patient's initial sepsis screen is negative. Does the patient have a suspected source of infection? No. Patient's initial sepsis screen is negative. Risk Assessment: Do you want to hurt yourself or someone else? Patient reports no desire to harm self or others. Onset of symptoms was January 03, 2024. 22:22 Method Of Arrival: Ambulatory as6 22:22 Acuity: MOSES 3 as6 Triage Assessment: 22:23 General: Appears in no apparent distress. comfortable, Behavior is calm, cooperative. as6 Pain: Complains of pain in abdomen. Historical: - Allergies: 22:23 NKA; as6 - PMHx: 22:23 Chronic Pancreatitis; Diabetes - IDDM; Hypertensive disorder; as6 - PSHx: 22:23 Cholecystectomy; I\T\D; stents x 2 in pancreas; as6 - Immunization history:: Adult Immunizations. - Infectious Disease History:: Denies. - Social history:: Smoking status: Reported history of juuling and/or vaping. Screenin:53 [facility] ED Fall Risk Assessment (Adult) History of falling in the last 3 months, vc1 including since admission No falls in past 3 months (0 pts) Confusion or Disorientation No (0 pts) Intoxicated or Sedated No (0 pts) Impaired Gait No (0 pts) Mobility Assist Device Used No (0 pt) Altered Elimination No (0 pt) Score/Fall Risk Level 0 - 2 = Low Risk Oriented to surroundings, Maintained a safe environment, Educated pt \T\ family on fall prevention, incl call for assistance when getting out of bed. Abuse screen: Denies threats or abuse. Nutritional screening: No deficits noted. Tuberculosis screening: No symptoms or risk factors identified. Assessment: 23:52 General: Appears in no apparent distress. uncomfortable, Behavior is calm, cooperative, vc1 appropriate for age. Pain: Complains of pain in abdomen Pain does not radiate. Pain currently is 7 out of 10 on a pain scale. Quality of pain is described as crampy. Neuro: Level of Consciousness is awake, alert, obeys commands, Oriented to person, place, time, situation, Appropriate for age Cardiovascular: No deficits noted. Heart tones S1 S2. Respiratory: Airway is patent Respiratory effort is even, unlabored, Respiratory pattern is regular, symmetrical, Breath sounds are clear bilaterally. GI: Abdomen is flat, non-distended, Reports upper abdominal pain, nausea. : No deficits noted. No signs and/or symptoms were reported regarding the genitourinary system. EENT: No deficits noted. No signs and/or symptoms were reported regarding the EENT system. Derm: No deficits noted. No signs and/or symptoms reported regarding the dermatologic system. Musculoskeletal: No deficits noted. No signs and/or symptoms reported regarding the musculoskeletal system. Vital Signs: 22:22 BP 126 / 89; Pulse 108; Resp 18 S; Temp 98.6(TE); Pulse Ox 97% on R/A; Weight 95.25 kg as6 (R); Height 5 ft. 9 in. (R); Pain 7/10; 23:51 BP 122 / 88; Pulse 103; Resp 18; Temp 98.6; Pulse Ox 98% ; vc1 22:22 Body Mass Index 31.01 (95.25 kg, 175.26 cm) as6 22:22 Pain Scale: Adult as6 ED Course: 22:18 Patient arrived in ED. ra3 22:19 Luis Ramirez PA is PHCP. cp 22:19 Ethan Harris MD is Attending Physician. cp 22:23 Triage completed. as6 22:23 Arm band placed on. as6 22:58 CBC with Diff Sent. vc1 22:58 CMP Sent. vc1 22:58 Lipase Sent. vc1 22:58 Initial lab(s) drawn, by me. vc1 22:58 Inserted saline lock: 20 gauge in right antecubital area, using aseptic technique. vc1 Blood collected. 23:41 Kendell Markham MD is Referral Physician. cp 23:51 Fadai Syed, RN is Primary Nurse. vc1 23:53 No provider procedures requiring assistance completed. IV discontinued, intact, vc1 bleeding controlled, No redness/swelling at site. Pressure dressing applied. 23:54 seen from DX chair. Provided Education on: side effects of phenergan. vc1 Administered Medications: 22:58 Drug: Promethazine IM 25 mg IM once Route: IM; Site: right deltoid; vc1 23:41 Drug: Ketorolac IVP 15 mg IVP once Route: IVP; Site: right antecubital; vc1 23:41 Drug: GI Cocktail without - (Maalox PO 30 ml, Lidocaine Mucous Membrane 2 % 15 vc1 ml) PO once Route: PO; Medication: 23:54 VIS not applicable for this client. vc1 Outcome: 23:41 Discharge ordered by MD. cp 23:54 Discharged to home ambulatory, vc1 23:54 Condition: good 23:54 Discharge instructions given to patient, Instructed on discharge instructions, follow up and referral plans. medication usage, Demonstrated understanding of instructions, follow-up care, medications, Prescriptions given X 2, 23:55 Patient left the ED. vc1 Signatures: Luis Ramirez PA PA cp Slawson, Ashby, RN RN as6 Fadia Syed, ERIC RN vc1 Arielle Phillips ra3
--- NOTE | 2024-01-03 23:42 | EDPHYS ---
Physician Documentation [facility] Name: Jimenez Patrick Age: 28 yrs Sex: Male : 1995 Arrival Date: 01/03/2024 Time: 22:15 Bed DX3 Private MD: ED Physician Ethan Harris HPI: 01/02 22:33 This 28 yrs old Male presents to ER via Ambulatory with complaints of Nausea - cp with flare up. 22:33 The patient presents to the emergency department with nausea, that is moderate, cp abdominal pain, of the epigastric area, described as constant. Onset: The symptoms/episode began/occurred today. Possible causes: flare up of bowel problem, chronic pancreatitis. Associated signs and symptoms: Pertinent negatives: anorexia, constipation, diarrhea, fever, vomiting. Severity of symptoms: in the emergency department the symptoms are unchanged despite home interventions. Historical: - Allergies: 22:23 NKA; as6 - PMHx: 22:23 Chronic Pancreatitis; Diabetes - IDDM; Hypertensive disorder; as6 - PSHx: 22:23 Cholecystectomy; I\T\D; stents x 2 in pancreas; as6 - Immunization history:: Adult Immunizations. - Infectious Disease History:: Denies. - Social history:: Smoking status: Reported history of juuling and/or vaping. ROS: 22:35 Constitutional: Negative for body aches, chills, fever, poor PO intake, cp 22:35 Eyes: Negative for injury, pain, redness, and discharge, cp 22:35 ENT: Negative for drainage from ear(s), ear pain, sore throat, difficulty swallowing, difficulty handling secretions, 22:35 Cardiovascular: Negative for chest pain, edema, palpitations, 22:35 Respiratory: Negative for cough, shortness of breath, wheezing, 22:35 Abdomen/GI: Positive for abdominal pain, nausea, of the epigastric area, Negative for vomiting, diarrhea, constipation, black/tarry stool, rectal bleeding, 22:35 Back: Negative for pain at rest, pain with movement, 22:35 : Negative for urinary symptoms, testicular pain 22:35 Neuro: Negative for altered mental status, dizziness, headache, syncope, weakness, 22:35 All other systems are negative, Exam: 22:40 Constitutional: The patient appears in no acute distress, alert, awake, comfortable, cp non-diaphoretic, non-toxic, well developed, well nourished, 22:40 Head/Face: Normocephalic, atraumatic. cp 22:40 Eyes: Periorbital structures: appear normal, Conjunctiva: normal, no exudate, no injection, Sclera: no appreciated abnormality, Lids and lashes: appear normal, bilaterally, 22:40 ENT: External ear(s): are unremarkable, Nose: is normal, Mouth: Lips: moist, Oral mucosa: pink and intact, moist, Posterior pharynx: is normal, airway is patent, no erythema, no exudate, 22:40 Neck: ROM/movement: is normal, is supple, without pain, no range of motions limitations, 22:40 Chest/axilla: Inspection: normal, Palpation: is normal, no crepitus, no tenderness, 22:40 Cardiovascular: Rate: tachycardic, Rhythm: regular, 22:40 Respiratory: the patient does not display signs of respiratory distress, Respirations: normal, no use of accessory muscles, no retractions, labored breathing, is not present, Breath sounds: are clear throughout, no decreased breath sounds, no stridor, no wheezing, 22:40 Abdomen/GI: Inspection: abdomen appears normal, Bowel sounds: active, all quadrants, Palpation: soft, in all quadrants, mild abdominal tenderness, in the epigastric area, rebound tenderness, is not appreciated, involuntary guarding, is not appreciated, 22:40 Back: pain, is absent, ROM is normal, Vital Signs: 22:22 BP 126 / 89; Pulse 108; Resp 18 S; Temp 98.6(TE); Pulse Ox 97% on R/A; Weight 95.25 kg as6 (R); Height 5 ft. 9 in. (R); Pain 7/10; 23:51 BP 122 / 88; Pulse 103; Resp 18; Temp 98.6; Pulse Ox 98% ; vc1 22:22 Body Mass Index 31.01 (95.25 kg, 175.26 cm) as6 22:22 Pain Scale: Adult as6 MDM: 22:25 Patient medically screened. cp 23:41 Data reviewed: vital signs, nurses notes, lab test result(s), and as a result, I will cp discharge patient. 23:41 Differential diagnosis: gastritis, pancreatitis, viral gastroenteritis, cp gastroenteritis, drug seeking behavior. I considered the following discharge prescriptions or medication management in the emergency department Medications were administered in the Emergency Department. See MAR. Test considered but Not performed: CT: abdomen/pelvis. Care significantly affected by the following chronic conditions: Diabetes, Hypertension, pancreatitis. Counseling: I had a detailed discussion with the patient and/or guardian regarding the historical points, exam findings, and any diagnostic results supporting the discharge/admit diagnosis, lab results, the need for outpatient follow up, a communications officer, to return to the emergency department if symptoms worsen or persist or if there are any questions or concerns that arise at home. Response to treatment: the patient's symptoms have mildly improved after treatment, and as a result, I will discharge patient. 01/02 22:27 Order name: CBC with Diff; Complete Time: 23:35 cp 01/02 22:27 Order name: CMP; Complete Time: 23:35 cp 01/02 22:27 Order name: Lipase; Complete Time: 23:35 cp 01/02 22:27 Order name: IV Saline Lock; Complete Time: 22:58 cp 01/02 22:27 Order name: Labs collected and sent; Complete Time: 22:58 cp 01/02 23:37 Order name: PO challenge; Complete Time: 23:41 cp Administered Medications: 22:58 Drug: Promethazine IM 25 mg IM once Route: IM; Site: right deltoid; vc1 23:41 Drug: Ketorolac IVP 15 mg IVP once Route: IVP; Site: right antecubital; vc1 23:41 Drug: GI Cocktail without - (Maalox PO 30 ml, Lidocaine Mucous Membrane 2 % 15 vc1 ml) PO once Route: PO; Disposition: 01/03 23:25 Co-signature as Attending Physician, Ethan Harris MD I agree with the assessment sp4 and plan of care. I reviewed the patient's care provided by the Advanced Practice Provider and agree with the diagnosis and treatment plan. Disposition Summary: 01/03/24 23:41 Discharge Ordered Notes: Location: Home cp Problem: chronic cp Symptoms: have improved cp Condition: Stable cp Diagnosis - Nausea cp - Other chronic pancreatitis cp Followup: cp - With: Kendell Markham MD - When: 1 - 2 days - Reason: Recheck today's complaints Discharge Instructions: - Discharge Summary Sheet cp - Nausea, Adult cp - Chronic Pancreatitis cp Forms: - Medication Reconciliation Form cp - Antibiotic Education cp - Prescription Opioid Use cp - Patient Portal Instructions cp - Leadership Thank You Letter cp Prescriptions: - promethazine 25 mg Oral Tablet - take 1 tablet ORAL route every 6 hours As needed; 20 tablet; Refills: 0, cp Product Selection Permitted - dicyclomine 20 mg Oral tablet - take 1 tablet ORAL route 4 times per day; 30 tablet; Refills: 0, Product cp Selection Permitted Signatures: Dispatcher [employer] EDMS Luis Ramirez PA PA cp Slawson, Ashby RN RN as6 Fadia Syed RN RN vc1 Ethan Harris MD MD sp4
[2024-01-04 00:35] VITALS: BP 122/88; TEMP 98.6; O2SAT 98
== END 2024-01-03 23:55 | disposition home or self-care (01) ==
LOC: ER 22:15
DX: K86.1 Other chronic pancreatitis (principal); Z96.89 Presence of other specified functional implants
CPT/HCPCS: 85025; 36415; 83690; 80053; 96372; 96374; 99284; J2550

== ENCOUNTER 2024-05-14 03:41 | Emergency (ER) | payer OTHER ==
--- OUTSIDE RECORDS SUMMARY | 2024-05-14 03:45 | XMS REPORT | Continuity of Care Document ---
Author Name Unknown Address [address] [facility] [place] [address] [facility] thconnect Address [address] [facility] [address] 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 Role Phone Pcp, Patient Does Not Have A Primary Care Physic adry MICHAEL BRAVO Attending Clinician Unavailable BROOKLYNN AGUILAR Attending Clinician Unavailable NANCY WEST Attending Clinician Unavailabl e Campaigns, Generic Provider Attending Clinician Unavailable ELDA THOMPSON Attending Clinician Unavailab Pablo Burch MD Attending Clinician [phone] Elda Thompson DO Attending Clinician [phone] GENESIS MONTGOMERY Attending Clinician Unavailab barbara JUARES Attending Clinician Unavailable Nabil Almanzar RN Attending Clinician Unavail able LAZARO HUNTER Attending Clinician Unavailable Augustin Kincaid Attending Clinician [phone] Esa Ko DO Attending Clinician [phone] Lazaro Hunter MD Attending Clinician [phone] Syeda Alberts Attending Clinician [phone] SYEDA PERSAUD Attending Clinician Unavailable Doctor Unassigned, Stevinson Attending Clinician U navailable LAZARO HUNTER Admitting Clinician Unavailable Lazaro Hunter MD Admitting Clinician [phone] Payers Payer Name Policy Type Policy Number Effective Date Expirati on Date Source MICHELET SAENZ [employer] 5 O [employer] 94 ON 9 [id number] 2023 00:00:00 Problems Condition Name Condition Details Condition Category Status Onset Date Resolution Date Last Treatment Date Treating Clinician Comments Source 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 Disease Active - 00:00: 00 [facility] Gastropare sis Gastropare sis Disease Active 01-06 00:00: 00 [facility] Current moderate episode of major depressive disorder Current moderate episode of major depressive disorder Disease Active 3- 00:00: 00 Parvin Seybold - Externa l DM (diabetes mellitus) (multi [...] (hypertens ion) HTN (hypertens ion) Disease Active 2- 00:00: 00 Parvin Seybold - Externa l Elevated liver function tests Elevated liver function tests Disease Active 10-06 00:00: 00 Parvin Seybold - Externa l Acute on chronic pancreatit is Acute on chronic pancreatit is Disease Active -08 00:00: 00 [facility] Epigastric pain Epigastric pain Disease Active - 00:00: 00 [facility] Obesity (BMI 30-39.9) Obesity (BMI 30-39.9) Disease Active 04-16 00:00: 00 [facility] Mesenteric adenitis Mesenteric adenitis Disease Active 2009-09 2- 00:00: 00 [facility] Pancreatit is Pancreatit is Disease Active 2009-09 00:00: 00 [facility] Abdominal pain Abdominal pain Disease Active 2009-09 00:00: 00 [facility] Other acne Other acne Disease Active 04-13 00:00: 00 [facility] Viral warts Viral warts Disease Active 04-13 00:00: 00 Overview: Formattin g of this note might be different from the original. 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 Allergies, Adverse Reactions, Alerts Allergy Name Allergy Type Status Severity Reaction(s) Onset Date Inactive Date Treating Clinician Comments Source NO KNOWN ALLERGIE S Drug Class Active [facility] Social History Social Habit Start Date Stop Date Quantity Comments Source History of tobacco use Cigarette Smoker Parvin Lee External Sexual orientation U [facility] History SDOH Social Connections Get Together [facility] History SDOH Social Connections Scientologist [facility] History SDOH Social Connections Membership [facility] History SDOH Social Connections Meetings [facility] Alcoholic beverage intake 2023-11-29 00:00:00 2023-11-29 00:00:00 Current drinker of alcohol (finding) Parvin Knowles - External Alcohol intake 2023-11-29 00:00:00 2023-11-29 00:00:00 Current drinker of alcohol (finding) Parvin Knowles - External Education - What is the highest level of school you have completed or the highest degree you have received? 2023-10-06 00:00:00 2023-10-06 00:00:00 High school graduate Parvin Knowles - External Alcohol Comment 2023-10-06 00:00:00 2023-10-06 00:00:00 occasionally Parvin Knowles - [place] Cigarettes smoked current (pack per day) - Reported 2023-10-06 00:00:00 2023-10-06 00:00:00 Parvin Chowdhury Cigarette pack-years 2023-10-06 00:00:00 2023-10-06 00:00:00 Parvin Chowdhury History SDOH Physical Activity MPS 2022-09-13 00:00:00 2022-09-13 00:00:00 3 [facility] History SDOH Financial 2022-09-13 00:00:00 2022-09-13 00:00:00 5 [facility] History SDOH Food Worry 2022-09-13 00:00:00 2022-09-13 00:00:00 1 [facility] History SDOH Food Scarcity 2022-09-13 00:00:00 2022-09-13 00:00:00 1 [facility] History SDOH Transport Med 2022-09-13 00:00:00 2022-09-13 00:00:00 2 [facility] History SDOH Transport Non-Med 2022-09-13 00:00:00 2022-09-13 00:00:00 2 [facility] History of Social function 2022-09-13 00:00:00 2022-09-13 00:00:00 [facility] History SDOH Alcohol Frequency 2022-09-13 00:00:00 2022-09-13 00:00:00 1 [facility] History SDOH Alcohol Std Drinks 2022-09-13 00:00:00 2022-09-13 00:00:00 0 [facility] History SDOH Alcohol Binge 2022-09-13 00:00:00 2022-09-13 00:00:00 1 [facility] History SDOH Social Connections Phone 2022-09-13 00:00:00 2022-09-13 00:00:00 5 [facility] History SDOH Social Connections Living 2022-09-13 00:00:00 2022-09-13 00:00:00 5 [facility] History SDOH Physical Activity DPW 2022-09-13 00:00:00 2022-09-13 00:00:00 4 [facility] Tobacco use and exposure 2022-09-12 00:00:00 2022-09-12 00:00:00 Smokeless tobacco non-user [facility] Exposure to SARS-CoV-2 (event) 2022-09-01 00:00:00 2022-09-11 13:58:00 Not sure [facility] Sex assigned at 1995 00:00:00 1995 00:00:00 Parvin Chowdhury Smoking Status Start Date Stop Date Source Occasional tobacco smoker 2023-10-06 00:00:00 Parvin Knowles - External Ex-smoker 2022-09-12 00:00:00 2022-09-12 00:00:00 [facility] Unknown if ever smoked [facility] Medications Ordered Medication Name Filled Medication Name Start Date Stop Date Current Medication? Ordering Clinician Indication Dosage Frequency Signature (SIG) Comments Components Source Insulin Glargine (Basaglar KwikPen) 100 UNIT/ML subcutaneou s Solution Pen-injecto r 01-19 00:00: 00 Yes [id number] 42U Inject 42 units into the skin daily (with breakfast) . Parvin Llanosa l NaCl 0.9% (NS) bolus infusion 500 mL 01-06 19:00: 00 01-06 19:58 :00 No 500mL at 999 mL/hr, 500 mL, IV Infusion, ONCE, 1 dose, On 01/07/24 at 1400, STAT [facility] haloperidol lactate (HALDOL) injection 2.5 mg 01-06 18:00: 00 01-06 18:14 :00 No 2.5mg 2.5 mg, Intravenou s, ONCE, 1 dose, On 01/07/24 at 1300, [facility] insulin regular human (HUMULIN R) injection 8 Units 01-06 17:45: 00 01-06 17:04 :00 No 8U 8 Units, IV Push, ONCE, 1 dose, On 01/07/24 at 1245, MARITA
In dication for insulin: Hyperglyce tess [facility] ketorolac (TORADOL) injection 15 mg 01-06 16:30: 00 01-06 16:01 :00 No 15mg 15 mg, Slow IV Push, ONCE, 1 dose, On 01/07/24 at 1130, MARITA [facility] maalox:diph enhydrAMINE :lidocaine 2 % viscous 1:1:1 (FIRST-MOUT [facility]) oral suspension 15 mL 01-06 15:30: 00 01-06 16:01 :00 No 15mL 15 mL, Oral, ONCE, 1 dose, On 01/07/24 at 1030, Routine [facility] NaCl 0.9% (NS) bolus infusion 1,000 mL 01-06 14:15: 00 01-06 16:02 :00 No 1000mL at 999 mL/hr, 1,000 mL, IV Piggyback, ONCE, 1 dose, On 01/07/24 at 0915, STAT Univers [facility] Sertraline HCl 25 MG oral Tablet 12-20 00:00: 00 Yes [id number] 25mg Take 1 tablet (25 mg total) by mouth daily. Parvin siegel Sertraline HCl 25 MG oral Tablet 11-28 00:00: 00 Yes [id number] 25mg Take 1 tablet (25 mg total) by mouth daily. Parvin siegel Insulin Glargine (Basaglar KwikPen) 100 UNIT/ML subcutaneou s Solution Pen-injecto r 11-28 00:00: 00 Yes [id number] 9101 42U Inject 42 units into the skin daily (with breakfast) 40 units sc daily. Parvin siegel Continuous Blood Gluc Sensor (Dexcom G6 Sensor) does not apply Misc 11-28 00:00: 00 Yes [id number] Check BS continuous ly. Parvin siegel Continuous Blood Gluc Transmit (Dexcom G6 Transmitter ) does not apply Misc 11-28 00:00: 00 Yes [id number] Check BS continousl y. Parvin siegel Continuous Blood Gluc Licensed Plumber (Dexcom G6 Licensed Plumber) does not apply Device 11-28 00:00: 00 Yes [id number] Check BS continuous ly. Parvin siegel Mirtazapine 15 MG oral Tablet 11-17 00:00: 00 11-28 00:00 :00 No 15mg Take 1 tablet (15 mg total) by mouth nightly. Parvin siegel Insulin Pen Needle (BD Pen Needle Connie 2nd Gen) 32G X 4 MM does not apply Misc 10-28 00:00: 00 Yes [id number] 9101 Use as directed. Parvin siegel Metoprolol Tartrate (LOPRESSOR) 25 MG oral Tablet 10-27 00:00: 00 Yes [id number] 25mg Take 1 tablet (25 mg total) by mouth daily. Parvin siegel Insulin Glargine (Basaglar KwikPen) 100 UNIT/ML subcutaneou s Solution Pen-injecto r 10-27 00:00: 00 Yes [id number] 9101 40 units sc daily. Parvin siegel Insulin NPH Isophane & Regular (NOVOLIN 70/30 SC) 10-06 10:25: 45 10-06 00:00 :00 No 60U Inject 60 units into the skin daily. Parvin siegel Metoprolol Tartrate (LOPRESSOR) 25 MG oral Tablet 10-06 00:00: 00 Yes [id number] 25mg Take 1 tablet (25 mg total) by mouth daily. Parvin siegel Insulin Glargine (Basaglar KwikPen) 100 UNIT/ML subcutaneou s Solution Pen-injecto r 10-06 00:00: 00 Yes [id number] 9101 40 units sc daily. Parvin siegel Continuous Blood Gluc Licensed Plumber (Dexcom G6 Licensed Plumber) does not apply Device 10-06 00:00: 00 Yes [id number] Check BS continuous ly. Pravin siegel Continuous Blood Gluc Sensor (Dexcom G6 Sensor) does not apply Misc 10-06 00:00: 00 Yes [id number] Check BS continuous ly. Parvin isegel Continuous Blood Gluc Transmit (Dexcom G6 Transmitter ) does not apply Misc 10-06 00:00: 00 Yes [id number] Check BS continousl y. Parvin Llanosa l Continuous Blood Gluc Licensed Plumber (Dexcom G6 Licensed Plumber) does not apply Device 10-06 00:00: 00 Yes [id number] Check BS continuous ly. Parvin Greenmichaelrenita siegel Continuous Blood Gluc Sensor (Dexcom G6 Sensor) does not apply Misc 10-06 00:00: 00 Yes [id number] Check BS continuous ly. Parvin Greenmichaelrenita Llanosa christal Continuous Blood Gluc Transmit (Dexcom G6 Transmitter ) does not apply Misc 10-06 00:00: 00 Yes [id number] Check BS continousl y. Parvin Greentheodore Gonsales christal Gabapentin 100 MG oral Capsule 10-06 00:00: 00 11-28 00:00 :00 No [id number] 100mg [id number] 3D Take 1 capsule (100 mg total) by mouth 3 times daily as needed (pain). Parvin Benson siegel Acetaminoph en-Codeine 300-30 MG oral Tablet 09-16 00:00: 00 10-06 00:00 :00 No 1{tbl} Q.25D Take 1 tablet by mouth every 6 hours as needed for pain FOR PAIN. Parvin Greenmichaelrenita Lee Ilda siegel insulin NPH and regular human 70-30 (NOVOLIN 70/30 U-100 INSULIN) 100 unit/mL (70-30) injection 09-14 12:13: 02 09-14 00:00 :00 No 60U inject 60 Units under the skin 2 (two) times daily before breakfast and dinner. [facility] insulin NPH and regular human 70-30 (NOVOLIN 70/30 U-100 INSULIN) 100 unit/mL (70-30) injection 09-14 00:00: 00 Yes [id number] 60U inject 60 Units under the skin 2 (two) times daily before breakfast and dinner. [facility] atorvastati n 40 mg tablet 09-14 00:00: 00 10-15 05:59 :00 No [id number] 40mg Take 1 tablet by mouth at bedtime for [address] [facility] lisinopriL 10 mg tablet 09-14 00:00: 00 10-15 05:59 :00 No [id number] 10mg Take 1 tablet by mouth in the morning and 1 tablet in the evening. Do all this for 30 days. Univers ity [facility] morpHINE (4 mg/mL) injection 4 mg 09-13 09:53: 10 Yes 4mg 4 mg, Slow IV Push, Q4HPRN, Starting on 09/13/22 at 0353, Until Discontinu ed, Routine, Pain (scale 7-10) [facility] atorvastati n (LIPITOR) tablet 40 mg 09-13 03:00: 00 Yes 40mg 40 mg, Oral, QHS, First dose on 09/12/22 at 2100, Until Discontinu ed, Routine Univers [facility] lisinopriL (PRINIVIL,Z ESTRIL) tablet 10 mg 09-12 14:45: 00 Yes 10mg 10 mg, Oral, BID, First dose (after last modificati on) on Tue09/12/22 at 0845, Until Discontinu ed, Routine Univers [facility] KCL (KLOR-CON M20) tablet 40 mEq 09-12 13:45: 00 09-12 14:15 :00 No 40meq 40 mEq, Oral, ONCE, 1 dose, On Tue09/12/22 at 0745, Routine [facility] potassium chloride in water 10 mEq/100 mL RTU 10 mEq 09-12 13:00: 00 09-12 16:20 :00 No 10meq 10 mEq, IV Piggyback, Q1H, 2 doses, First dose on 09/12/22 at 0700, Last dose on Tue09/12/22 at 0800, Administer over 60 Minutes, [address] [facility] lisinopriL (PRINIVIL,Z ESTRIL) tablet 5 mg 09-12 05:00: 00 09-12 14:35 :46 No 5mg 5 mg, Oral, BID, First dose on Tue09/11/22 at 2300, Until Discontinu ed, Routine [facility] lactated ringers IV infusion 1,000 mL 09-12 03:15: 00 Yes 1000mL at 150 mL/hr, 1,000 mL, IV Infusion, CONTINUOUS , Starting on 09/11/22 at 2115, Until Discontinu ed, Routine [facility] Sliding Scale Insulin - Lispro (HumaLOG) + Fsbg Testing 09-11 23:00: 00 Yes Subcutaneo us, TID MEALS+HS, First dose on 09/11/22 at 1700, Until Discontinu ed, Routine [facility] enoxaparin (LOVENOX) injection 40 mg 09-11 23:00: 00 Yes 40mg 40 mg, Subcutaneo us, DAILY, First dose on 09/11/22 at 1700, Until Discontinu ed, Routine [facility] lactated ringers IV infusion 1,000 mL 09-11 19:15: 00 09-12 03:05 :27 No 1000mL at 125 mL/hr, 1,000 mL, IV Infusion, CONTINUOUS , Starting on 09/11/22 at 1315, Until 09/11/22 at 2105, Routine Univers [facility] lactated ringers IV infusion 1,000 mL 09-11 19:00: 00 09-11 19:56 :58 No 1000mL at 999 mL/hr, 1,000 mL, Intravenou s, ONCE, 1 dose, On 09/11/22 at 1300, Routine [facility] NaCl 0.9% (NS) IV infusion 1,000 mL 09-11 18:15: 00 09-11 19:00 :00 No 1000mL at 999 mL/hr, Intravenou s, ONCE, 1 dose, [facility] F[facility] (SUBLIMAZE (PF)) injection 50 mcg 09-11 18:05: 00 09-11 18:10 :00 No 50ug 50 mcg, Slow IV Push, ONCE, 1 dose, On 09/11/22 at 1215, [facility] ondansetron (ZOFRAN (PF)) injection 4 mg 09-11 18:05: 00 09-11 18:09 :00 No 4mg 4 mg, Slow IV Push, ONCE, 1 dose, On 09/11/22 at 1215, MARITA [facility] glucagon (GLUCAGEN DIAGNOSTIC KIT) injection 1 mg 09-11 18:04: 12 Yes 1mg 1 mg, Intramuscu lar, PRN, Starting on 09/11/22 at 1204, Until Discontinu ed, MARITA, Blood Glucose < or = 70 mg/dL and patient is unable to swallow or has mental changes. [facility] dextrose 50 % in water (D50W) injection 25 mL 09-11 18:04: 12 Yes 25mL 25 mL, Slow IV Push, PRN, Starting on 09/11/22 at 1204, Until Discontinu ed, MARITA, Blood Glucose < or = 70 mg/dL and patient is unable to swallow or has mental status changes. [facility] ondansetron (ZOFRAN (PF)) injection 4 mg 09-11 18:04: 03 Yes 4mg 4 mg, Slow IV Push, Q6HPRN, Starting on 09/11/22 at 1204, Until Discontinu ed, Routine, Nausea and Vomiting (N/V) [facility] morpHINE (2 mg/mL) injection 2 mg 09-11 18:03: 52 09-12 18:02 :52 No 2mg 2 mg, Slow IV Push, Q4HPRN, Starting on 09/11/22 at 1203, Until 09/12/22 at 1202, Routine, Pain (scale 7-10) [facility] HYDROcodone -acetaminop hen (NORCO 5) 5-325 mg tablet 1 tablet 09-11 18:03: 48 09-13 18:02 :48 No 1{tbl} 1 tablet, Oral, Q6HPRN, Starting on 09/11/22 at 1203, Until 09/13/22 at 1202, Routine, Pain (scale 4-6) [facility] acetaminoph en (TYLENOL) tablet 650 mg 09-11 18:03: 39 Yes 650mg 650 mg, Oral, Q6HPRN, Starting on 09/11/22 at 1203, Until Discontinu ed, Routine, Pain (scale 1-3) [facility] insulin NPH and regular human 70-30 (70-30 U-100 INSULIN) 100 unit/mL (70-30) injection 60 Units 09-11 18:03: 00 09-11 18:54 :00 No 60U 60 Units, Subcutaneo us, ONCE, 1 dose, [facility]11[facility]22 [facility] 1215[facility] FENTanyl PF (SUBLIMAZE (PF)) injection 50 mcg 09-11 16:38: 00 09-11 16:41 :00 No 50ug 50 mcg, Slow IV Push, ONCE, 1 dose, On 09/11/22 at 1045, [facility] iopamidol (ISOVUE 370-500 mL) injection 78 mL 09-11 16:35: 00 09-11 16:45 :00 No [id number] 78mL 78 mL, Intravenou s, ONCE, 1 dose, On 09/11/22 at 1045, Routine [facility] ondansetron (ZOFRAN (PF)) injection 4 mg 09-11 15:45: 00 09-11 15:50 :00 No [id number] 4mg 4 mg, Slow IV Push, ONCE, 1 dose, On 09/11/22 at 0945, [facility] famotidine (PEPCID (PF)) injection 20 mg 09-11 15:45: 00 09-11 15:50 :00 No [id number] 20mg 20 mg, Slow IV Push, ONCE, 1 dose, On 09/11/22 at 0945, [facility] NaCl 0.9% (NS) IV infusion 1,000 mL 09-11 15:33: 00 09-11 17:00 :00 No [id number] 1000mL at 999 mL/hr, Intravenou s, ONCE, 1 dose, On 09/11/22 at 0945, [facility] sodium chloride (NS) injection 5 mL 09-11 15:32: 59 Yes [id number] 5mL 5 mL, Intravenou s, PRN, Starting on 09/11/22 at 0932, Until Discontinu ed, Routine, IV line flushing [facility] maalox:diph enhydrAMINE :lidocaine 2 % viscous 1:1:1 (FIRST[facility]MOUT [facility]) oral suspension 15 mL 11-08 20:45: 00 11-08 20:39 :00 No 15mL 15 mL, Oral, ONCE, 1 dose, 11/08/20 at 1445, [facility] insulin regular human (HUMULIN R) injection 9 Units 11-08 20:30: 00 11-08 19:39 :00 No 9U 9 Units, Slow IV Push, ONCE, 1 dose, 11/08/20 at 1430, STAT [facility] ondansetron (ZOFRAN (PF)) injection 4 mg 11-08 19:45: 00 11-08 18:49 :00 No 4mg 4 mg, Slow IV Push, ONCE, 1 dose, 11/08/20 at 1345, [facility] morpHINE injection 4 mg 11-08 19:45: 00 11-08 18:49 :00 No 4mg 4 mg, Slow IV Push, ONCE, 1 dose, 11/08/20 at 1345, STAT [facility] NaCl 0.9% (NS) bolus infusion 1,000 mL 11-08 19:30: 00 11-08 20:37 :00 No 1000mL at 999 mL/hr, 1,000 mL, IV Infusion, ONCE, 1 dose, 11/08/20 at 1330, [facility] NaCl 0.9% (NS) bolus infusion 1,000 mL 11-08 18:30: 00 11-08 19:39 :00 No 1000mL at 999 mL/hr, 1,000 mL, IV Infusion, ONCE, 1 dose, 11/08/20 at 1230, MARITA [facility] ondansetron (ZOFRAN ODT) 4 mg disintegrat ing tablet 11-08 00:00: 00 09-11 00:00 :00 No [id number] 4mg Take 1 tablet by mouth every 8 (eight) hours as needed for Nausea and Vomiting (N/V). [facility] dicyclomine 20 mg tablet 11-08 00:00: 00 09-11 00:00 :00 No [id number] 20mg Take 1 tablet by mouth 4 (four) times daily as needed for Abdominal pain. [facility] No known medications [facility] Vital Signs Vital Name Observation Time Observation Value Comments S ource Systolic blood pressure 2024-01-07 20:00:00 118 mm[Hg] [facility] Diastolic blood pressure 2024-01-07 20:00:00 91 mm[Hg] [facility] Heart rate 2024-01-07 20:00:00 82 /min [facility] Respiratory rate 2024-01-07 20:00:00 16 /min [facility] Oxygen saturation in Arterial blood by Pulse oximetry 2024-01-07 20:00:00 97 /min [facility] Body temperature 2024-01-07 13:13:00 36.94 Zenaida [facility] Body weight 2024-01-07 13:13:00 95.255 kg [facility] BMI 2024-01-07 13:13:00 31.01 kg/m2 [facility] Body height 2024-01-07 13:11:00 175.3 cm [facility] Systolic blood pressure 2023-11-29 15:36:00 115 mm[Hg] Parvin brown - External Diastolic blood pressure 2023-11-29 15:36:00 80 mm[Hg] Parvin brown - External Heart rate 2023-11-29 15:36:00 81 /min Jennifer Knowles - External Body temperature 2023-11-29 15:36:00 36.56 [...] Heart rate 2023-10-06 15:48:00 123 /min Jennifer y Seybold - External Body temperature 2023-10-06 [...] Pulse oximetry 2023-10-06 15:48:00 100 /min Parvin Greenybo ld - External Systolic blood pressure 2022-09-14 17:21:00 130 mm[Hg] [facility] Diastolic blood pressure 2022-09-14 17:21:00 93 mm[Hg] [facility] Heart rate 2022-09-14 17:21:00 87 /min [facility] Body temperature 2022-09-14 17:21:00 35.56 Zenaida [facility] Respiratory rate 2022-09-14 17:21:00 18 /min [facility] Oxygen saturation in Arterial blood by Pulse oximetry 2022-09-14 17:21:00 98 /min [facility] Body weight 2022-09-14 09:02:00 98.476 kg [facility] BMI 2022-09-14 09:02:00 32.06 kg/m2 [facility] Body height 2022-09-11 19:14:00 175.3 cm [facility] Systolic blood pressure 2020-11-08 21:00:00 136 mm[Hg] [facility] Diastolic blood pressure 2020-11-08 21:00:00 95 mm[Hg] [facility] Heart rate 2020-11-08 21:00:00 93 /min [facility] Respiratory rate 2020-11-08 21:00:00 16 /min [facility] Oxygen saturation in Arterial blood by Pulse oximetry 2020-11-08 21:00:00 98 /min [facility] Body temperature 2020-11-08 18:12:00 36.44 Zenaida [facility] Body height 2020-11-08 18:12:00 175.3 cm [facility] Body weight 2020-11-08 18:12:00 92.987 kg [facility] BMI 2020-11-08 18:12:00 30.27 kg/m2 [facility] Procedures Procedure Date / Time Performed Performing Clinician Source POCT GLUCOSE (AUTOMATED) 2024-01-07 19:35:[address] [facility] URINE DRUG (IMMUNOASSAY) - COMPREHENSIVE DRUG SCREEN 2024-01-07 18:28:[address] [facility] URINALYSIS 2024-01-07 18:28:00 Ferhco Baugh [facility] POCT GLUCOSE (AUTOMATED) 2024-01-07 17:37:[address] [facility] LIPASE 2024-01-07 13:41:00 Fercho Baugh [facility] COMP. METABOLIC PANEL ([id number]) 2024-01-07 13:41:00 Lupis [facility] CBC WITH DIFF 2024-01-07 13:41:00 Fercho Baugh [facility] POCT GLUCOSE (AUTOMATED) 2022-09-14 17:22:00 Jadiel Hunter [facility] LIPASE 2022-09-14 11:57:00 Michael Jung [facility] BASIC METABOLIC PANEL (NA, K, CL, CO2, GLUCOSE, BUN, CREATININE, CA) 2022-09-14 11:57:00 Michael Jung [facility] LIPID PANEL ([id number])(TOTAL CHOLESTEROL, TRIGLYCERIDES, HDL) 2022-09-14 11:57:00 Michael Jung [facility] CBC WITH DIFF 2022-09-14 11:57:00 Michael Jung [facility] POCT GLUCOSE (AUTOMATED) 2022-09-14 02:35:00 Jadiel Hunter [facility] POCT GLUCOSE (AUTOMATED) 2022-09-13 22:59:00 Jadiel Hunter [facility] POCT GLUCOSE (AUTOMATED) 2022-09-13 17:43:00 Jadiel Hunter [facility] POCT GLUCOSE (AUTOMATED) 2022-09-13 13:30:00 Jadiel Hunter yazmin [facility] BASIC METABOLIC PANEL (NA, K, CL, CO2, GLUCOSE, BUN, CREATININE, CA) 2022-09-13 09:26:00 Emy Hyde [facility] POCT GLUCOSE (AUTOMATED) 2022-09-12 22:34:00 Jadiel Hunter [facility] POCT GLUCOSE (AUTOMATED) 2022-09-12 17:15:00 Jadiel Hunter yazmin [facility] POCT GLUCOSE (AUTOMATED) 2022-09-12 13:44:00 Jadiel Hunter [facility] MAGNESIUM 2022-09-12 09:07:00 Lazaro Hunter [facility] HEPATIC FUNCTION PANEL ([id number]) (ALB,T.PRO,BILI T,BU/BC,ALT,AST,ALK PHOS) 2022-09-12 09:07:00 [place], [facility] (NA, K, CL, CO2, GLUCOSE, BUN, CREATININE, CA) 2022-09-12 09:07:00 Emy Hyde [facility] LIPID PANEL (60968)(TOTAL CHOLESTEROL, TRIGLYCERIDES, HDL) 2022-09-12 09:07:00 Lazaro Hunter [facility] CBC WITH DIFF 2022-09-12 09:07:00 Emy Hyde [facility] POCT GLUCOSE (AUTOMATED) 2022-09-12 09:01:00 Salma Ko [facility] POCT GLUCOSE (AUTOMATED) 2022-09-12 02:38:00 Salma Ko [facility] POCT GLUCOSE (AUTOMATED) 2022-09-11 22:42:00 Salma Ko [facility] POCT GLUCOSE (AUTOMATED) 2022-09-11 18:57:00 Mateus [facility] POCT GLUCOSE(AGE >30DAYS) 2022-09-11 17:22:00 Mateus [facility] POCT GLUCOSE (AUTOMATED) 2022-09-11 17:21:00 Mateus [facility] CT ABDOMEN PELVIS W CONTRAST 2022-09-11 16:38:00 Mateus [facility] POCT GLUCOSE (AUTOMATED) 2022-09-11 15:59:00 Mateus [facility] LIPASE 2022-09-11 15:48:00 Augustin Ignacio [facility] COMP. METABOLIC PANEL (94764) 2022-09-11 15:48:00 [facility]FF 2022-09-11 15:48:00 Augustin Ignacio [facility] GLYCOSYLATED HEMOGLOBIN (A1C) 2022-09-11 15:48:00 Esa Ko [facility] URINALYSIS 2022-09-11 15:46:00 Augustin Ignacio [facility] CONSENT/REFUSAL FOR DIAGNOSIS AND TREATMENT 2022-09-11 15:16:37 Doctor Unassigned, Stevinson [facility] POCT GLUCOSE (AUTOMATED) 2020-11-08 20:26:00 Syeda Persaud [facility] LIPASE 2020-11-08 18:29:00 [facility] (99330) (ALB,T.PRO,BILI T,BU/BC,ALT,AST,ALK PHOS) 2020-11-08 18:29:[facility] (NA, K, CL, CO2, GLUCOSE, BUN, CREATININE, CA) 2020-11-08 18:29:00 [facility]FF 2020-11-08 18:29:00 Syeda Persaud [facility] URINALYSIS 2020-11-08 18:29:00 Syeda Persaud [facility] NOTICE OF PRIVACY PRACTICES 2020-11-08 18:06:16 Doctor Unassigned, Stevinson [facility] CONSENT/REFUSAL FOR DIAGNOSIS AND TREATMENT 2020-11-08 18:06:04 Doctor Unassigned, Stevinson [facility] Encounters Start Date/Time End Date/Time Encounter Type Admission Type Attending [facility] Care Facility Care Department Encounter ID Source 2021-09-30 12:34:38 Outpatient [facility] [id number] [facility] 2024-05-10 00:00:00 2024-05-10 00:00:00 Outpatient MICHAEL BRAVO [id number] [facility] 2024-04-01 00:00:00 2024-04-01 00:00:00 Outpatient MICHAEL BRAVO [id number] [facility] 2024-03-30 00:00:00 2024-03-30 00:00:00 Outpatient MICHAEL BRAVO [id number] [facility] 2024-03-29 00:00:00 2024-03-29 00:00:00 Outpatient MICHAEL BRAVO [id number] [facility] 2024-03-27 00:00:00 2024-03-27 00:00:00 Outpatient MICHAEL BRAVO [id number] [facility] 2024-03-16 00:00:00 2024-03-16 00:00:00 Outpatient MICHAEL BRAVO [id number] [facility] 2024-02-28 16:15:00 2024-02-28 16:15:00 Outpatient PARVIN HERNÁNDEZ [id number] [facility] 2024-02-28 00:00:00 2024-02-28 00:00:00 Outpatient MENGZAMICHAEL Saini [id number] [facility] 2024-02-27 00:00:00 2024-02-27 00:00:00 Outpatient PREZAMICHAEL Saini [id number] [facility] 2024-02-27 00:00:00 2024-02-27 00:00:00 Outpatient PREZAMICHAEL Saini PARVIN [id number] [facility] 2024-02-21 15:30:00 2024-02-21 15:30:00 Outpatient BROOKLYNN AGUILAR PARVIN [id number] [facility] 2024-02-21 00:00:00 2024-02-21 00:00:00 Outpatient ANTWONBROOKLYNN Basurto PARVIN [id number] [facility] 2024-01-23 14:15:00 2024-01-23 14:15:00 Outpatient NANCY WEST PARVIN PARVIN [id number] [facility] 2024-01-20 00:00:00 2024-01-20 00:00:00 Outpatient MICHAEL BRAVO PARVIN [id number] [facility] 2024-01-18 00:00:00 2024-01-18 11:18:00 Letter (Out) Campaigns, Generic Provider [facility] 1.2.840.114 350.1.13.10 4.2.7.2.[id number] [facility] 2024-01-10 00:00:00 2024-01-10 00:00:00 Outpatient MICHAEL BRAVO PARVIN [id number] [facility] 2024-01-09 10:30:00 2024-01-09 10:30:00 Outpatient PREZAS, MICHAEL PARVIN HERNÁNDEZ [id number] [facility] 2024-01-07 08:13:00 2024-01-07 15:06:00 Emergency ELDA DUMONT [facility] ERT [id number] [facility] 2024-01-07 08:13:00 2024-01-07 15:06:00 Emergency Pablo [facility] 1.2.840.114 350.1.13.10 4.2.7.2.[id number] [facility] 2023-12-30 15:30:00 2023-12-30 15:30:00 Outpatient PREZAS, MICHAELFABIOLA HERNÁNDEZ [id number] [facility] 2023-12-27 16:30:00 2023-12-27 16:30:00 Outpatient PARVIN HERNÁNDEZ [id number] [facility] 2023-12-21 00:00:00 2023-12-21 00:00:00 Outpatient PREZAParveen, MICHAEL HERNÁNDEZ [id number] [facility] 2023-12-13 00:00:00 2023-12-13 00:00:00 Outpatient PREZAS, MICHAEL HERNÁNDEZ [id number] [facility] 2023-12-05 00:00:00 2023-12-05 00:00:00 Outpatient PREZAParveen, MICHAEL HERNÁNDEZ [id number] [facility] 2023-11-29 10:30:00 2023-11-29 10:30:00 Outpatient PREZAS MICHAEL HERNÁNDEZ [id number] [facility] 2023-11-28 14:00:00 2023-11-28 14:00:00 Outpatient GENESIS MONTGOMERY [id number] [facility] 2023-11-28 00:00:00 2023-11-28 00:00:00 Outpatient PREZAParveen, MICHAEL HERNÁNDEZ [id number] [facility] 2023-11-07 00:00:00 2023-11-07 00:00:00 Outpatient PREZAS, MICHAEL HERNÁNDEZ [id number] [facility] 2023-10-27 00:00:00 2023-10-27 00:00:00 Outpatient PREZAS, MICHAEL HERNÁNDEZ [id number] [facility] 2023-10-26 00:00:00 2023-10-26 00:00:00 Outpatient PREZAS, MICHAEL HERNÁNDEZ [id number] [facility] 2023-10-26 00:00:00 2023-10-26 00:00:00 Outpatient PREZAS, MICHAEL HERNÁNDEZ [id number] [facility] 2023-10-19 16:45:00 2023-10-19 16:45:00 Outpatient PREZAS, MICHAEL HERNÁNDEZ [id number] [facility] 2023-10-18 14:30:00 2023-10-18 14:30:00 Outpatient PARVIN HERNÁNDEZ [id number] [facility] 2023-10-10 00:00:00 2023-10-10 00:00:00 Outpatient PREZAS, MICHAEL HERNÁNDEZ [id number] [facility] 2023-10-07 00:00:00 2023-10-07 00:00:00 Outpatient PREZAS, MICHAEL HERNÁNDEZ [id number] [facility] 2023-10-06 10:45:00 2023-10-06 10:45:00 Outpatient LAB90 PARVIN MONTEIROSEY [id number] [facility] 2023-10-06 09:30:00 2023-10-06 09:30:00 Outpatient PREZAS, MICHAEL MONTEIROSEY [id number] [facility] 2023-08-24 10:15:00 2023-08-24 10:15:00 Outpatient PREZAS, MICHAEL MONTEIROSEY [id number] [facility] 2022-09-15 00:00:00 2022-09-15 00:00:00 Transition of Care Nabil Almanzar 1.2.840.114 350.1.13.10 4.2.7.2.[id number] [facility] 2022-09-11 09:26:00 2022-09-14 13:00:00 Inpatient X LAZARO HUNTER [facility] [id number] [facility] 2022-09-11 09:26:00 2022-09-14 13:00:00 Hospital Encounter Augustin Ignacio, Lazaro Quach [facility] 1.2.840.114 350.1.13.10 4.2.7.2.[id number] [facility] 2020-11-08 12:16:00 2020-11-08 15:38:00 Emergency Carolyn Persaudanne [facility] 1.2.840.114 350.1.13.10 4.2.7.2.[id number] [facility] 2020-11-08 12:06:00 2020-11-08 12:06:00 Emergency X CAROLYN PERSAUDANNE [facility] ERT [id number] [facility] 2020-11-08 00:00:00 2020-11-08 00:00:00 Orders Only Doctor Unassigned, Stevinson [facility] 1.2.840.114 350.1.13.10 4.2.7.2.[id number] [facility] Results Test Description Test Time Test Comments Results Result Co mments Source [facility] GLUCOSE(AGE >30DAYS)2024-01-07 19:35:00* Test Item Value Reference Range Interpretation Comme [facility] POCT Glu (age>30days) (test code = 3342) 171 mg/dL 70-110 A Lab Interpretation (test cod e = 59938-5) Abnormal [facility] GLUCOSE (AUTOMATED)2024-01-07 17:39:20* Test Item Value Reference Range Interpretation Comme [facility] POCT GLU (test code = 1697129970) 155 mg/dL 70-110 H Lab Interpretation (test cod e = 11772-5) [facility]normal [facility] 14:35:51* Test Item Value Reference Range Interpretation Comme [facility] LIPASE (test code = 3741133861) 18 U/L 0-220 Lab Interpretation (test cod e = 40962-6) Normal [facility] (04057)2024-01-07 14:35:51* Test Item Value Reference Range Interpretation Comme nts NA (test code = 2152168648) 139 mmol/L 135-145 K (test code = 9094323546) 3.6 mmol/L 3.5-5.0 CL (test code = 0032483251) 100 mmol/L 98-108 CO2 TOTAL (test code = 0865818384) 24 mmol/L 23-31 AGAP (test code = 6191253007) 15 2-16 BUN (test code = 0279304466) 9 mg/dL 7-23 GLUCOSE (test code = 7310008369) 315 mg/dL 70-110 H CREATININE (test code = 2160-0) 0.68 mg/dL 0.60-1.25 TOTAL BILI (test code = 7961840959) 1.1 mg/dL 0.1-1.1 CALCIUM (test code = 5486553929) 9.2 mg/dL 8.6-10.6 T PROTEIN (test code = 6813300244) 7.5 g/dL 6.3-8.2 ALBUMIN (test code = 3030030652) 4.4 g/dL 3.5-5.0 ALK PHOS (test code = 2856315897) 156 U/L 34-122 H ALTv (test code = 1742-6) 62 U/L 5-50 H AST(SGOT) (test code = 8682478511) 52 U/L 13-40 H eGFR (test code = 61839-8) 129.0 mL/min/1.73m2 CKD-EPI eGFR (2020). Assuming creatinine has been stable day-to-day for at least three months, the eGFR indicates Category G1 (>= 90 mL/min/1.73 m2) Lab Interpretation (test code = 01577-2) [facility]normal [facility] [id number] 14:09:10* Test Item Value Reference Range Interpretation Comme nts WBC (test code = 6690-2) 8.89 4.20-10.70 RBC (test code = 789-8) 5.34 4.26-5.52 HGB (test code = 718-7) 15.4 g/dL 12.2-16.4 HCT (test code = 4544-3) 42.2 % 38.4-49.3 MCV (test code = 787-2) 79.0 fL 81.7-95.6 L MCH (test code = 785-6) 28.8 pg 26.1-32.7 MCHC (test code = 786-4) 36.5 g/dL 31.2-35.0 H RDW-SD (test code = 54470-6) 33.4 fL 38.5-51.6 L RDW-CV (test code = 788-0) 11.8 % 12.1-15.4 L PLT (test code = 777-3) 286 150-328 MPV (test code = 74873-5) 11.2 fL 9.8-13.0 NRBC/100 WBC (test code = 7063063623) 0.0 0.0-10.0 NRBC x10^3 (test code = 9770623199) See_Comment [Automated messa ge] The system which generated this result transmitted reference range: 10*3/?L. The reference range was not used to interpret this result as normal/abnormal. GRAN MAT (NEUT) % (test code = 770-8) 65.3 % IMM GRAN % (test code = 2312656590) 0.40 % LYMPH % (test code = 736-9) 21.8 % MONO % (test code = 5905-5) 11.1 % EOS % (test code = 713-8) 1.0 % BASO % (test code = 706-2) 0.4 % GRAN MAT x10^3(ANC) (test code = 6463379163) 5.79 10*3/uL 1.99-6.95 IMM GRAN x10^3 (test code = 5071433594) 0.04 10*3/uL 0.00-0.06 LYMPH x10^3 (test code = 731-0) 1.94 10*3/uL 1.09-3.23 MONO x10^3 (test code = 742-7) 0.99 10*3/uL 0.36-1.02 EOS x10^3 (test code = 711-2) 0.09 10*3/uL 0.06-0.53 BASO x10^3 (test code = 704-7) 0.04 10*3/uL 0.01-0.09 Lab Interpretation (test code = 96493-6) Abnormal [facility] GLUCOSE (AUTOMATED)2022-09-14 18:35:20* Test Item Value Reference Range Interpretation Comme nts POCT GLU (test code = 1856581405) 283 mg/dL 70-110 H Lab Interpretation (test cod e = 44198-6) Abnormal [facility] GLUCOSE (AUTOMATED)2022-09-14 02:40:24* Test Item Value Reference Range Interpretation Comme nts POCT GLU (test code = 9294525958) 191 mg/dL 70-110 H Lab Interpretation (test cod e = 56434-6) Abnormal [facility] GLUCOSE (AUTOMATED)2022-09-13 23:13:20* Test Item Value Reference Range Interpretation Comme nts POCT GLU (test code = 8758332715) 126 mg/dL 70-110 H Lab Interpretation (test cod e = 12735-7) Abnormal [facility] GLUCOSE (AUTOMATED)2022-09-13 17:51:10* Test Item Value Reference Range Interpretation Comme nts POCT GLU (test code = 5087083442) 270 mg/dL 70-110 H Lab Interpretation (test cod e = 93996-7) Abnormal [facility] GLUCOSE (AUTOMATED)2022-09-13 14:08:01* Test Item Value Reference Range Interpretation Comme nts POCT GLU (test code = 4935641325) 177 mg/dL 70-110 H Lab Interpretation (test cod e = 04431-3) Abnormal [facility] GLUCOSE (AUTOMATED)2022-09-12 22:53:55* Test Item Value Reference Range Interpretation Comme nts POCT GLU (test code = 2959356754) 207 mg/dL 70-110 H Lab Interpretation (test cod e = 49285-0) Abnormal [facility] GLUCOSE (AUTOMATED)2022-09-12 18:09:02* Test Item Value Reference Range Interpretation Comme nts POCT GLU (test code = 2170485098) 92 mg/dL 70-110 Lab Interpretation (test cod e = 87244-3) Normal [facility]ress[facility] PAN[facility] (85869)(TOTAL CHOLESTEROL, TRIGLYCERIDES, HDL)2022-09-12 14:58:08* Test Item Value Reference Range Interpretation Comme nts CHOL (test code = 8732832146) 138 mg/dL 120-200 HDL (test code = 9283004653) 23 mg/dL See_Comment L [Automated messa ge] The system which generated this result transmitted reference range: >=40. The reference range was not used to interpret this result as normal/abnormal. HDLC RATIO (test code = 6861159934) See_Comment H [Automated messa ge] The system which generated this result transmitted reference range: <=5.0. The reference range was not used to interpret this result as normal/abnormal. TRIG (test code = 4166855879) 171 mg/dL 30-170 H LDL CHOL (test code = 91842-9) 81 mg/dL See_Comment [Automated messa ge] The system which generated this result transmitted reference range: <=160. The reference range was not used to interpret this result as normal/abnormal. VLDL (test code = 4023072752) 34 mg/dL 5-60 Lab Interpretation (test code = 55882-4) Abnormal [facility]2022-09-12 13:54:38* Test Item Value Reference Range Interpretation Comme nts POCT GLU (test code = 5369230799) 84 mg/dL 70-110 Lab Interpretation (test cod e = 84399-7) Normal [facility] FUNCTION PANEL (18168) (ALB,T.PRO,BILI T,BU/BC,ALT,AST,ALK PHOS)2022-09-12 13:03:03* Test Item Value Reference Range Interpretation Comme nts TOTAL BILI (test code = 2208786687) 1.0 mg/dL 0.1-1.1 BILI UNCON (test code = 7903034080) 0.8 mg/dL 0.1-1.1 BILI CONJ (test code = 2001670415) 0.0 mg/dL 0.0-0.3 T PROTEIN (test code = 9105763502) 6.7 g/dL 6.3-8.2 ALBUMIN (test code = 1838117096) 4.0 g/dL 3.5-5.0 ALK PHOS (test code = 2626313595) 106 U/L 34-122 ALTv (test code = 1742-6) 146 U/L 5-50 H AST(SGOT) (test code = 1287138644) 81 U/L 13-40 H Lab Interpretation (test cod e = 96893-9) Abnormal [facility]2023-[facility]-08 13:02:43* Test Item Value Reference Range Interpretation Comme nts MAGNESIUM (test code = 0071223508) 1.8 mg/dL 1.7-2.4 Lab Interpretation (test cod e = 93091-9) Normal [facility] (NA, K, CL, CO2, GLUCOSE, BUN, CREATININE, CA)2022-09-12 12:10:26* Test Item Value Reference Range Interpretation Comme nts NA (test code = 4467610260) 142 mmol/L 135-145 K (test code = 4084112559) 3.1 mmol/L 3.5-5.0 L CL (test code = 0920271283) 106 mmol/L 98-108 CO2 TOTAL (test code = 5873014100) 24 mmol/L 23-31 AGAP (test code = 2086298831) 2-16 BUN (test code = 8037521958) 8 mg/dL 7-23 GLUCOSE (test code = 8452943377) 73 mg/dL 70-110 CREATININE (test code = 2139398082) 0.72 mg/dL 0.60-1.25 CALCIUM (test code = 9121753187) 8.1 mg/dL 8.6-10.6 L eGFR (test code = 6173798037) mL/min/1.73m2 RAFAEL (test code = RAFAEL) Association [...] imaging tests). Lab Interpretation (test code = 84753-4) [facility] WITH [id number] 11:46:12* Test Item Value Reference Range Interpretation Comme nts WBC (test code = 6690-2) See_Comment [[employer])] The system which generated this result transmitted reference range: 4.20 - 10.70 10*3/?L. The reference range was not used to interpret this result as normal/abnormal. RBC (test code = 789-8) See_Comment [[employer])] The system which generated this result transmitted [...] 35.0 g/dL 31.2-35.0 RDW-SD (test code = 61525-5) 36.0 fL 38.5-51.6 L RDW-CV (test code = 788-0) 11.9 % 12.1-15.4 L PLT (test code = 777-3) See_Comment [Automated messa ge] The system which generated this result transmitted reference range: 150 - 328 10*3/?L. The reference range was not used to interpret this result as normal/abnormal. MPV (test code = 90218-3) 10.7 fL 9.8-13.0 NRBC/100 WBC (test code = 7209831823) See_Comment [Automated nubelo ssage] The system which generated this result transmitted reference range: 0.0 - 10.0 /100 WBCs. The reference range was not used to interpret this result as normal/abnormal. NRBC x10^3 (test code = 4120791596) See_Comment [Automated messa ge] The system which generated this result transmitted reference range: 10*3/?L. The reference range was not used to interpret this result as normal/abnormal. GRAN MAT (NEUT) % (test code = 770-8) 50.2 % IMM GRAN % (test code = 3553160090) 0.40 % LYMPH % (test code = 736-9) 37.0 % MONO % (test code = 5905-5) 8.3 % EOS % (test code = 713-8) 3.6 % BASO % (test code = 706-2) 0.5 % GRAN MAT x10^3(ANC) (test code = 8237738447) 4.81 10*3/uL 1.99-6.95 IMM GRAN x10^3 (test code = 8481133269) 0.04 10*3/uL 0.00-0.06 LYMPH x10^3 (test code = 731-0) 3.56 10*3/uL 1.09-3.23 H MONO x10^3 (test code = 742-7) 0.80 10*3/uL 0.36-1.02 EOS x10^3 (test code = 711-2) 0.35 10*3/uL 0.06-0.53 BASO x10^3 (test code = 704-7) 0.05 10*3/uL 0.01-0.09 Lab Interpretation (test code = 12419-0) Abnormal [facility] GLUCOSE (AUTOMATED)2022-09-12 11:19:34* Test Item Value Reference Range Interpretation Comme nts POCT GLU (test code = 2001647102) 70 mg/dL 70-110 Lab Interpretation (test cod e = 86987-8) Normal [facility] GLUCOSE (AUTOMATED)2022-09-12 02:46:59* Test Item Value Reference Range Interpretation Comme nts POCT GLU (test code = 1440592599) 90 mg/dL 70-110 Lab Interpretation (test cod e = 30347-0) Normal [facility] GLUCOSE (AUTOMATED)2022-09-11 23:13:35* Test Item Value Reference Range Interpretation Comme nts POCT GLU (test code = 3880022136) 120 mg/dL 70-110 H Lab Interpretation (test cod e = 35131-5) Abnormal [facility]ress[facility]cosylated Hemoglobin (A1C)2022-09-11 20:41:39* Test Item Value Reference Range Interpretation Comme nts HGB A1C (test code = 4548-4) 10.1 % 4.0-5.7 H RAFAEL (test code = RAFAEL) Reference RangesNormal: <5.7%Prediabetes: 5.7 - 6.4%Diabetes: > 6.5% Lab Interpretation (test code = 11184-1) Abnormal [facility] GLUCOSE (AUTOMATED)2022-09-11 19:01:23* Test Item Value Reference Range Interpretation Comme nts POCT GLU (test code = 5902960403) 302 mg/dL 70-110 H Lab Interpretation (test cod e = 62937-4) Abnormal [facility] GLUCOSE (AUTOMATED)2022-09-11 19:01:23* Test Item Value Reference Range Interpretation Comme nts POCT GLU (test code = 7778533468) 277 mg/dL 70-110 H Lab Interpretation (test cod e = 41447-2) Abnormal [facility] GLUCOSE (AUTOMATED)2022-09-11 19:01:23* Test Item Value Reference Range Interpretation Comme nts POCT GLU (test code = 2852269605) 283 mg/dL 70-110 H Lab Interpretation (test cod e = 14181-6) Abnormal [facility] >30DAYS)2022-09-11 17:22:00* Test Item Value Reference Range Interpretation Comme nts POCT Glu (age>30days) (test code = 3342) 277 mg/dL 70-110 A Lab Interpretation (test cod e = 83978-3) Abnormal [facility]ress[facility] Metabolic [id number] 16:11:48* Test Item Value Reference Range Interpretation Comme nts NA (test code = 1263623730) 137 mmol/L 135-145 K (test code = 9158983530) 4.5 mmol/L 3.5-5.0 CL (test code = 6939865887) 102 mmol/L 98-108 CO2 TOTAL (test code = 1000257439) 22 mmol/L 23-31 L AGAP (test code = 6371242583) 2-16 BUN (test code = 8738397706) 15 mg/dL 7-23 GLUCOSE (test code = 3870839259) 318 mg/dL 70-110 H CREATININE (test code = 1445011691) 0.76 mg/dL 0.60-1.25 TOTAL BILI (test code = 9021385909) 1.5 mg/dL 0.1-1.1 H CALCIUM (test code = 7445741357) 9.1 mg/dL 8.6-10.6 T PROTEIN (test code = 7270429969) 7.7 g/dL 6.3-8.2 ALBUMIN (test code = 3725936666) 5.0 g/dL 3.5-5.0 ALK PHOS (test code = 4936394528) 124 U/L 34-122 H ALTv (test code = 1742-6) 173 U/L 5-50 H AST(SGOT) (test code = 6805770059) 76 U/L 13-40 H eGFR (test code = 0701406743) mL/min/1.73m2 RAFAEL (test code = RAFAEL) Association [...] imaging tests). Lab Interpretation (test code = 34428-3) Abnormal [facility]ress[facility], [id number] 16:11:22* Test Item Value Reference Range Interpretation Comme [facility] LIPASE (test code = 3346436564) 22 U/L 0-220 Lab Interpretation (test cod e = 21322-6) Normal [facility]ressCBC with Leveuoymnsch7991-64-86 15:57:05* Test Item Value Reference Range Interpretation Comme nts WBC (test code = 6690-2) See_Comment H [Automated [employer]] The system which generated this result transmitted reference range: 4.20 - 10.70 10*3/?L. The reference range was not used to interpret this result as normal/abnormal. RBC (test code = 789-8) See_Comment [Automated [employer]] The system which generated this result transmitted [...] g/dL 31.2-35.0 H RDW-SD (test code = 42002-6) 35.5 fL 38.5-51.6 L RDW-CV (test code = 788-0) 11.8 % 12.1-15.4 L PLT (test code = 777-3) See_Comment [Automated [employer]] The system which generated this result transmitted reference range: 150 - 328 10*3/?L. The reference range was not used to interpret this result as normal/abnormal. MPV (test code = 36696-8) 10.3 fL 9.8-13.0 NRBC/100 WBC (test code = 6212349182) See_Comment [Automated [employer]] The system which generated this result transmitted reference range: 0.0 - 10.0 /100 WBCs. The reference range was not used to interpret this result as normal/abnormal. NRBC x10^3 (test code = 4159007556) See_Comment [Automated [employer]] The system which generated this result transmitted reference range: 10*3/?L. The reference range was not used to interpret this result as normal/abnormal. GRAN MAT (NEUT) % (test code = 770-8) 64.6 % IMM GRAN % (test code = 7046953064) 0.50 % LYMPH % (test code = 736-9) 25.3 % MONO % (test code = 5905-5) 7.3 % EOS % (test code = 713-8) 1.9 % BASO % (test code = 706-2) 0.4 % GRAN MAT x10^3(ANC) (test code = 7138883675) 7.62 10*3/uL 1.99-6.95 H IMM GRAN x10^3 (test code = 3103238816) 0.06 10*3/uL 0.00-0.06 LYMPH x10^3 (test code = 731-0) 2.98 10*3/uL 1.09-3.23 MONO x10^3 (test code = 742-7) 0.86 10*3/uL 0.36-1.02 EOS x10^3 (test code = 711-2) 0.22 10*3/uL 0.06-0.53 BASO x10^3 (test code = 704-7) 0.05 10*3/uL 0.01-0.09 Lab Interpretation (test code = 10686-5) [facility]-08 20:30:00* Test Item Value Reference Range Interpretation Comme [facility] POCT GLU (test code = 3788352216) 181 mg/dL 70-110 H Lab Interpretation (test cod e = 82440-8) Abnormal [facility] Metabolic Panel (NA, K, CL, CO2, GLUCOSE, BUN, CREATININE, CA)2020-11-08 18:48:00* Test Item Value Reference Range Interpretation Comme [facility] NA (test code = 3367104765) 134 mmol/L 135-145 L K (test code = 0628403798) 4.0 mmol/L 3.5-5 CL (test code = 5837855061) 96 mmol/L 98-108 L CO2 TOTAL (test code = 4761342110) 29 mmol/L 23-31 AGAP (test code = 4120702048) 2-16 BUN (test code = 0694064385) 10 mg/dL 7-23 GLUCOSE (test code = 4592840390) 368 mg/dL 70-110 H CREATININE (test code = 5916977438) 0.58 mg/dL 0.6-1.25 L CALCIUM (test code = 5727727998) 9.1 mg/dL 8.6-10.6 eGFR Calculation (Non-) (test code = 8221539911) mL/min/1.73m2 eGFR Calculation () (test code = 3233516662) mL/min/1.73m2 RAFAEL (test code = RAFAEL) Association [...] imaging tests). Lab Interpretation (test code = 92378-2) [facility]normal [facility] (ALB, T.PRO, BILI T, BU/BC, ALT, AST, ALK PHOS)2020-11-08 18:48:00* Test Item Value Reference Range Interpretation Comme nts TOTAL BILI (test code = 8827312024) 0.8 mg/dL 0.1-1.1 BILI UNCON (test code = 9260213549) 0.8 mg/dL 0.1-1.1 BILI CONJ (test code = 2797189533) 0.0 mg/dL 0-0.3 T PROTEIN (test code = 7327470423) 7.8 g/dL 6.3-8.2 ALBUMIN (test code = 0523931393) 4.7 g/dL 3.5-5 ALK PHOS (test code = 1682970941) 147 U/L 34-122 H ALTv (test code = 1742-6) 48 U/L 5-50 AST(SGOT) (test code = 4789802814) 42 U/L 13-40 H Lab Interpretation (test cod e = 07527-9) Abnormal [facility] [id number] 18:48:00* Test Item Value Reference Range Interpretation Comme nts LIPASE (test code = 6057626842) 27 U/L 0-220 Lab Interpretation (test cod e = 00132-4) Normal [facility]2021-[facility]-06 18:39:00* Test Item Value Reference Range Interpretation Comme nts APPEARANCE (test code = 8533392073) Clear Clear COLOR (test code = 5035840885) Yellow Yellow PH (test code = 6429495830) 4.8-8.0 SP GRAVITY (test code = 2548927523) 1.003-1.030 H GLU U QUAL (test code = 1954627914) 500 mg/dL Normal A BLOOD (test code = 9526723080) Negative Negative KETONES (test code = 5983417642) 5 mg/dL Negative A PROTEIN (test code = 2887-8) Negative Negative UROBILIN (test code = 5290350804) Normal Normal BILIRUBIN (test code = 4857818677) Negative Negative NITRITE (test code = 0503510519) Negative Negative LEUK ALYSHA (test code = 4231771389) Negative Negative RBC/HPF (test code = 2776834888) See_Comment [Automated [employer] ge] The system which generated this result transmitted reference range: 0 - 3 HPF. The reference range was not used to interpret this result as normal/abnormal. WBC/HPF (test code = 1694568867) See_Comment [Automated [employer]] The system which generated this result transmitted reference range: 0 - 5 HPF. The reference range was not used to interpret this result as normal/abnormal. BACTERIA (test code = 3636576227) Negative Negative Lab Interpretation (test code = 19668-2) Abnormal [facility] with [id number] 18:36:00* Test Item Value Reference Range Interpretation Comme nts WBC (test code = 6690-2) See_Comment [Automated [employer]] The system which generated this result transmitted reference range: 4.20 - 10.70 10*3/?L. The reference range was not used to interpret this result as normal/abnormal. RBC (test code = 789-8) See_Comment H [Automated [employer]] The system which generated this result [...] g/dL 31.2-35 H RDW-SD (test code = 59247-5) 33.7 fL 38.5-51.6 L RDW-CV (test code = 788-0) 11.5 % 12.1-15.4 L PLT (test code = 777-3) See_Comment H [Automated [employer]] The system which generated this result transmitted reference range: 150 - 328 10*3/?L. The reference range was not used to interpret this result as normal/abnormal. MPV (test code = 46235-9) 10.2 fL 9.8-13 NRBC/100 WBC (test code = 0896736306) See_Comment [Automated nubelo ssage] The system which generated this result transmitted reference range: 0.0 - 10.0 /100 WBCs. The reference range was not used to interpret this result as normal/abnormal. NRBC x10^3 (test code = 7573703956) <0.01 See_Comment [Automated [employer]] The system which generated this result transmitted reference range: 10*3/?L. The reference range was not used to interpret this result as normal/abnormal. GRAN MAT (NEUT) % (test code = 770-8) 60.3 % IMM GRAN % (test code = 5933625957) 0.70 % LYMPH % (test code = 736-9) 29.2 % MONO % (test code = 5905-5) 4.7 % EOS % (test code = 713-8) 3.9 % BASO % (test code = 706-2) 1.2 % GRAN MAT x10^3(ANC) (test code = 6639170063) 6.44 10*3/uL 1.99-6.95 IMM GRAN x10^3 (test code = 1565850927) 0.07 10*3/uL 0-0.06 H LYMPH x10^3 (test code = 731-0) 3.12 10*3/uL 1.09-3.23 MONO x10^3 (test code = 742-7) 0.50 10*3/uL 0.36-1.02 EOS x10^3 (test code = 711-2) 0.42 10*3/uL 0.06-0.53 BASO x10^3 (test code = 704-7) 0.13 10*3/uL 0.01-0.09 H Lab Interpretation (test code = 43342-5) Abnormal [facility] Notes Date/Time Note Provider Source 2024-01-07 12:39:09 Bedside glucose 155. Donita García RN [facility] 2024-01-07 08:29:00 Jimenez Caal is a 28 year old male presents to ED with complaints of abdominal pain, N/V/D x 2 days. Patient reports hx of pancreatitis, states "I think I'm having a flare up." Patient points to midepigastric area when identifying pain, repots tenderness, and rates pain 7 out 10. Patient is AAoX4, RR e/u on RA, NAD. [facility] 2024-01-07 08:12:17 Jimenez Caal is a 28 year old male who presents to the ED ambulatory with complaints of abdominal pain and vomiting x3 days pt reports vomiting 5 times today AOx4. Respirations even and unlabored. Skin warm and dry. NAD noted. Patient to room for further evaluation. Kojo Art RN [facility]
[2024-05-14] MEDS ORDERED: ONDANSETRON 4 MG/2 ML VIAL ONE (04:01)
[2024-05-14] MEDS ORDERED: NA CHLORIDE 0.9% 1,000 ML ONE (04:01)
[2024-05-14] MEDS ORDERED: MORPHINE 4 MG/ML SYR ONE (04:01)
[2024-05-14 04:18] LABS: Absolute Basophils 0.1 K/uL (0-0.5); Absolute Eosinophils 0.3 K/uL (0-0.5); Absolute Lymphocytes (CBC) 2.6 K/uL (0.7-4.9); Absolute Monocytes 0.6 K/uL (0.1-1.3); Absolute Neutrophil 4.9 K/uL (1.8-8.0); Basophils % 0.8 % (0-1.3); Eosinophils % 3.7 % (0-4.4); Hematocrit 44.9 % (39.6-49.0); Hemoglobin 15.5 g/dL (13.6-17.9); Lymphocytes % 30.7 % (15.3-44.8); MCH 29.3 pg (27.0-35.0); MCHC 34.4 g/dL (32.0-36.0); MCV 85.2 fL (80-100); Monocytes % 7.3 % (3.3-12.3); Neutrophils % 57.5 % (41.7-73.7); Nucleated Red Blood Cells % 0.1 % (0-0); Platelets 326 thou/uL (152-406); RBC Red Blood Cell Count 5.27 M/uL (4.33-5.43); Red Cell Distribution Width 12.6 % (12.1-15.2)
[2024-05-14 04:30] LABS: Albumin 3.4 g/dL (3.4-5.0); Bilirubin Total 0.8 mg/dL (0.2-1.0); Globulin 3.5 g/dL (2.3-3.5); Protein, Total 6.9 g/dL (6.4-8.2)
--- NOTE | 2024-05-14 06:18 | ER ---
Nurse's Notes [facility] [place], [place] Name: Jimenez Patrick Age: 28 yrs Sex: Male : 1995 Arrival Date: 05/14/2024 Time: 03:41 Bed 18 Private MD: Farzad Rahman Diagnosis: Noninfective gastroenteritis and colitis, unspecified Presentation: 05/14 03:56 Chief complaint: Patient states: I think I am having a pancreatitis flair up. It jb4 started last night and I have chronic pancreatitis. Coronavirus screen: At this time, the client does not indicate any symptoms associated with coronavirus-19. Ebola Screen: No symptoms or risks identified at this time. Initial Sepsis Screen: Does the patient meet any 2 criteria? No. Patient's initial sepsis screen is negative. Does the patient have a suspected source of infection? No. Patient's initial sepsis screen is negative. Risk Assessment: Do you want to hurt yourself or someone else? Patient reports no desire to harm self or others. Onset of symptoms was May 14, 2024. Transition of care: patient was not received from another setting of care. 03:56 Method Of Arrival: Ambulatory jb4 03:56 Acuity: MOSES 3 jb4 Historical: - Allergies: 03:59 NKA; jb4 - Home Meds: 03:59 insulin 40 units BID [Active]; jb4 - PMHx: 03:59 Chronic Pancreatitis; Diabetes - IDDM; Hypertensive disorder; jb4 - PSHx: 03:59 I\T\D; Cholecystectomy; stents x 2 in pancreas; jb4 - Immunization history:: Adult Immunizations not up to date. - Infectious Disease History:: Denies. - Social history:: Smoking status: Reported history of juuling and/or vaping. Screenin:09 [facility] ED Fall Risk Assessment (Adult) History of falling in the last 3 months, bm8 including since admission No falls in past 3 months (0 pts) Confusion or Disorientation No (0 pts) Intoxicated or Sedated No (0 pts) Impaired Gait No (0 pts) Mobility Assist Device Used No (0 pt) Altered Elimination No (0 pt) Score/Fall Risk Level 0 - 2 = Low Risk Oriented to surroundings, Maintained a safe environment, Educated pt \T\ family on fall prevention, incl call for assistance when getting out of bed, Assessed \T\ reinforced patient's understanding of fall precautions, Hourly rounding (assess needs \T\ fall precautionary measures) done, Used ambulatory aids as needed (educated on \T\ assisted with), Used gait belt as appropriate. Abuse screen: Denies threats or abuse. Nutritional screening: No deficits noted. Tuberculosis screening: No symptoms or risk factors identified. Assessment: 04:09 General: Appears in no apparent distress. comfortable, Behavior is calm, cooperative, bm8 appropriate for age. Pain: Complains of pain in epigastric area Pain currently is 6 out of 10 on a pain scale. Neuro: Level of Consciousness is awake, alert, obeys commands, Oriented to person, place, time, situation, Appropriate for age. Cardiovascular: Denies chest pain, Capillary refill < 3 seconds Patient's skin is warm and dry. Respiratory: Airway is patent Respiratory effort is even, unlabored, Respiratory pattern is regular, symmetrical, Breath sounds are clear bilaterally. GI: Abdomen is flat, non-distended, Bowel sounds present X 4 quads. Abdomen is tender to palpation in epigastric area. : No signs and/or symptoms were reported regarding the genitourinary system. EENT: No signs and/or symptoms were reported regarding the EENT system. Derm: No signs and/or symptoms reported regarding the dermatologic system. Musculoskeletal: No signs and/or symptoms reported regarding the musculoskeletal system. 04:48 Reassessment: Patient appears in no apparent distress at this time. Patient and/or bm8 family updated on plan of care and expected duration. Pain level reassessed. Patient is alert, oriented x 3, equal unlabored respirations, skin warm/dry/pink. Patient states feeling better. Patient states symptoms have improved. 05:46 Reassessment: Patient and/or family updated on plan of care and expected duration. Pain rg5 level reassessed. Patient is alert, oriented x 3, equal unlabored respirations, skin warm/dry/pink. Patient states feeling better. Patient states symptoms have improved. 06:17 Reassessment: Patient and/or family updated on plan of care and expected duration. Pain rg5 level reassessed. Patient is alert, oriented x 3, equal unlabored respirations, skin warm/dry/pink. Patient states feeling better. Patient states symptoms have improved. Vital Signs: 03:56 BP 129 / 83; Pulse 75; Resp 16; Temp 96.9(TE); Pulse Ox 100% on R/A; Weight 88 kg (R); jb4 Height 5 ft. 9 in. ; 04:48 BP 122 / 80; Pulse 65; Resp 17; Temp 97; Pulse Ox 100% ; Pain 2/10; bm8 05:44 BP 119 / 83; Pulse 64; Resp 18; Pulse Ox 100% on R/A; Pain 4/10; rg5 06:17 BP 114 / 78; Pulse 68; Resp 17; Pain 0/10; rg5 03:56 Body Mass Index 28.65 (88.00 kg, 175.26 cm) jb4 04:48 Pain Scale: Adult bm8 05:44 Pain Scale: Adult rg5 06:17 Pain Scale: Adult rg5 Rebecca Coma Score: 04:09 Eye Response: spontaneous(4). Motor Response: obeys commands(6). Verbal Response: bm8 oriented(5). Total: 15. 04:48 Eye Response: spontaneous(4). Motor Response: obeys commands(6). Verbal Response: bm8 oriented(5). Total: 15. ED Course: 03:44 Patient arrived in ED. jj6 03:45 Farzad Rahman DO is Private Physician. jj6 03:45 Nas Tovar MD is Attending Physician. ec2 03:59 Triage completed. jb4 03:59 Gold Tripp, RN is Primary Nurse. bm8 03:59 Arm band placed on right wrist. jb4 04:09 Patient has correct armband on for positive identification. Placed in gown. Bed in low bm8 position. Call light in reach. Side rails up X 1. Adult w/ patient. Client placed on continuous cardiac and pulse oximetry monitoring. NIBP monitoring applied. Pulse ox on. NIBP on. Door closed. Noise minimized. Warm blanket given. Pillow given. Verbal reassurance given. Head of bed elevated. 04:12 No provider procedures requiring assistance completed. Initial lab(s) drawn, by rocío merino sent to lab. Inserted saline lock: 20 gauge in right forearm, using aseptic technique. Blood collected. Flushed with 10 mL NS. Patient maintains SpO2 saturation greater than 95% on room air. 04:48 Report given to Juan Jose, RN. bm8 05:10 CT Abd/Pelvis - IV Contrast Only In Process Unspecified. EDMS 06:17 Farzad Rahman DO is Referral Physician. ec2 06:27 Provided Education on: er post care. rg5 06:27 IV discontinued, bleeding controlled, No redness/swelling at site. Pressure dressing rg5 applied. Administered Medications: 04:09 Drug: NS 0.9% IV 1000 ml IV at 1 bolus Per protocol; 1000 mL bolus Route: IV; Rate: 1 bm8 bolus; Site: right forearm; 05:15 Follow up: IV Status: Completed infusion; IV Intake: 1000ml rg5 04:09 Drug: Ondansetron IVP 4 mg IVP once; over 2 minutes Route: IVP; Site: right forearm; bm8 05:15 Follow up: Response: No adverse reaction rg5 04:09 Drug: morphine IVP or IV 4 mg IVP once over 4 mins Route: IVP; Infused Over: 4 mins; bm8 Site: right forearm; 05:15 Follow up: Response: No adverse reaction; Pain is decreased rg5 Medication: 04:09 VIS not applicable for this client. bm8 Intake: 05:15 IV: 1000ml; Total: 1000ml. rg5 Outcome: 06:17 Discharge ordered by MD. ec2 06:27 Discharged to home ambulatory, rg5 06:27 Condition: stable 06:27 Discharge instructions given to patient, Instructed on discharge instructions, follow up and referral plans. Demonstrated understanding of instructions, follow-up care, medications, Prescriptions given X 2, 06:28 Patient left the ED. rg5 Signatures: Dispatcher [employer] EDTN Jomar Jacome, RN RN jb4 Kaye Sanders6 Nas Tovar MD MD ec2 Gold Tripp RN RN bm8 Juan Jose Hansen, RN RN rg5
--- NOTE | 2024-05-14 06:18 | EDPHYS ---
Physician Documentation [facility] Name: Jimenez Patrick Age: 28 yrs Sex: Male : 1995 Arrival Date: 05/14/2024 Time: 03:41 Bed 18 Private MD: Farzad Rahman ED Physician Nas Tovar HPI: 05/14 03:55 This 28 yrs old Male presents to ER via Unassigned with complaints of ec2 Abdominal Pain. 03:55 Patient with history of chronic pancreatitis arrives today for abdominal pain onset of ec2 yesterday. Reports of associated nausea. History of cholecystectomy, history of diabetes. . Historical: - Allergies: 03:59 NKA; jb4 - Home Meds: 03:59 insulin 40 units BID [Active]; jb4 - PMHx: 03:59 Chronic Pancreatitis; Diabetes - IDDM; Hypertensive disorder; jb4 - PSHx: 03:59 I\T\D; Cholecystectomy; stents x 2 in pancreas; jb4 - Immunization history:: Adult Immunizations not up to date. - Infectious Disease History:: Denies. - Social history:: Smoking status: Reported history of juuling and/or vaping. ROS: 03:55 Constitutional: as per hpi ec2 Exam: 03:55 Constitutional: GEN: NAD Head: atraumatic Eyes: EOMI Ears: External ears are ec2 normal. CV: regular rate LUNGS: no respiratory distress ABD: non-distended SKIN: no evidence of rashes MSK: no evidence of trauma Vital Signs: 03:56 BP 129 / 83; Pulse 75; Resp 16; Temp 96.9(TE); Pulse Ox 100% on R/A; Weight 88 kg (R); jb4 Height 5 ft. 9 in. ; 04:48 BP 122 / 80; Pulse 65; Resp 17; Temp 97; Pulse Ox 100% ; Pain 2/10; bm8 05:44 BP 119 / 83; Pulse 64; Resp 18; Pulse Ox 100% on R/A; Pain 4/10; rg5 06:17 BP 114 / 78; Pulse 68; Resp 17; Pain 0/10; rg5 03:56 Body Mass Index 28.65 (88.00 kg, 175.26 cm) jb4 04:48 Pain Scale: Adult bm8 05:44 Pain Scale: Adult rg5 06:17 Pain Scale: Adult rg5 Sadi Coma Score: 04:09 Eye Response: spontaneous(4). Motor Response: obeys commands(6). Verbal Response: bm8 oriented(5). Total: 15. 04:48 Eye Response: spontaneous(4). Motor Response: obeys commands(6). Verbal Response: bm8 oriented(5). Total: 15. MDM: 03:53 Patient medically screened. ec2 03:55 Data reviewed: vital signs. ED course: Patient arrives today for evaluation of upper ec2 abdominal pain. Examination remarkable for well-appearing nontoxic and vigorous otherwise in no acute distress with a reassuring examination. Obtain lab work, CT imaging and treat the patient's pain. Differential includes acute on chronic pancreatitis, gastritis, abdominal infection.. 04:31 ED course: Metabolic profile is reassuring. Lipase is within normal ranges, CBC ec2 reassuring. Pending CT imaging. . 06:14 ED course: CT abdomen pelvis shows gastroenteritis, hepatic steatosis noted, no acute ec2 pancreatitis. . 06:17 ED course: On reassessment patient is well-appearing no acute distress will discharge ec2 home return precaution given. 05/14 03:53 Order name: CBC with Diff; Complete Time: 04:31 ec2 0909 03:53 Order name: CMP; Complete Time: 04:31 ec2 09/09 03:53 Order name: Lipase; Complete Time: 04:31 ec2 09/09 03:53 Order name: CT Abd/Pelvis - IV Contrast Only ec2 05/14 03:53 Order name: IV Saline Lock; Complete Time: 03:59 ec2 05/14 03:53 Order name: Labs collected and sent; Complete Time: 03:59 ec2 Administered Medications: 04:09 Drug: NS 0.9% IV 1000 ml IV at 1 bolus Per protocol; 1000 mL bolus Route: IV; Rate: 1 bm8 bolus; Site: right forearm; 05:15 Follow up: IV Status: Completed infusion; IV Intake: 1000ml 5 04:09 Drug: Ondansetron IVP 4 mg IVP once; over 2 minutes Route: IVP; Site: right forearm; bm8 05:15 Follow up: Response: No adverse reaction 5 04:09 Drug: morphine IVP or IV 4 mg IVP once over 4 mins Route: IVP; Infused Over: 4 mins; bm8 Site: right forearm; 05:15 Follow up: Response: No adverse reaction; Pain is decreased rg5 Disposition Summary: 05/14/24 06:17 Discharge Ordered Notes: Location: Home ec2 Condition: Stable ec2 Diagnosis - Noninfective gastroenteritis and colitis, unspecified ec2 Followup: ec2 - With: Farzad Rahman DO - When: - Reason: Recheck today's complaints Discharge Instructions: - Discharge Summary Sheet ec2 - Viral Gastroenteritis, Adult, Pcfu-oj-Uend ec2 Forms: - Medication Reconciliation Form ec2 - Antibiotic Education ec2 - Prescription Opioid Use ec2 - Patient Portal Instructions ec2 - Leadership Thank You Letter ec2 Prescriptions: - Zofran 4 mg Oral Tablet - take 1 tablet ORAL route every 12 hours As needed; 20 tablet; Refills: 0, ec2 Product Selection Permitted - dicyclomine 10 mg Oral capsule - take 1 capsule ORAL route 3 times per day; 15 capsule; Refills: 0, Product ec2 Selection Permitted Signatures: Dispatcher [employer] Jomar Vega, RN RN jb4 Nas Tovar MD MD ec2 Gold Tripp, RN RN bm8 Juan Jose Hansen RN rg5 Corrections: (The following items were deleted from the chart) 03:54 03:54 CBC+H.LAB.BRZ ordered. EDMS EDMS 03:54 03:54 COMPREHENSIVE METABOLIC PANEL+C.LAB.BRZ ordered. EDMS EDMS 03:54 03:54 LIPASE+C.LAB.BRZ ordered. EDMS EDMS
[2024-05-14 06:37] VITALS: O2SAT 100
[2024-05-14 06:43] VITALS: TEMP 97
[2024-05-14 06:54] VITALS: BP 114/78
--- NOTE | 2024-05-14 19:04 | RAD REPORT ---
EXAM DESCRIPTION: CT ABDOMEN PELVIS WITH IV CONTRAST CLINICAL HISTORY: Abdominal pain. COMPARISON: CT Abdomen pelvis 12/05/2023. TECHNIQUE: CT images of the abdomen and pelvis obtained following adminstration of intravenous contr ast. Multiplanar reformats were provided. Dose-optimization techniques such as automated exposure con trol, iterative reconstruction, and mA and/or kV adjustment for patient size was utilized for this ex amination. FINDINGS: LOWER CHEST: Unremarkable. LIVER: Diffuse fatty infiltration of the liver without focal lesion. BILIARY: Unremarkable. PANCREAS: Pancreatic atrophy and calcifications consistent with sequela of chronic pancreatitis. No a cute pancreatitis. SPLEEN: Unremarkable. ADRENALS: Unremarkable. KIDNEYS/URETERS: Unremarkable. BOWEL/STOMACH: Slight mucosal enhancement of stomach, several small bowel loops and terminal ileum, s uspicious for gastroenteritis. There is fecal material in distal small bowel, likely reflecting ileus . No bowel obstruction. Njqy-eh-jzibgetu colonic stool burden. APPENDIX: Normal. MESENTERY/PERITONEUM: No free fluid or free air. No focal collection. RETROPERITONEUM: No adenopathy. URINARY BLADDER: Unremarkable. REPRODUCTIVE: Unremarkable. VASCULAR: Unremarkable. ABDOMINAL/PELVIC WALL: Unremarkable. BONES: Unremarkable. IMPRESSION: 1. Slight mucosal enhancement of stomach, several small bowel loops and terminal ileum , suspicious for gastroenteritis. 2. Hepatic steatosis. 3. Sequela of chronic pancreatitis. No evidence of acute pancreatitis. Electronically signed by: Shayna Sahu MD 05/14/2024 06:10 AM CDT Due to temporary technical issues with the PACS/Fluency reporting system, reports are being signed by the in house radiologists without review as a courtesy to insure prompt reporting. The interpreting radiologist is fully responsible for the content of the report.
== END 2024-05-14 06:28 | disposition home or self-care (01) ==
LOC: ER 03:41
DX: K52.9 Noninfective gastroenteritis and colitis, unspecified (principal); E11.9 Type 2 diabetes mellitus without complications; Z79.4 Long term (current) use of insulin; Z96.89 Presence of other specified functional implants; I10 Essential (primary) hypertension
CPT/HCPCS: 96361; 85025; 36415; 83690; 80053; 74177; 96375; 96374; 99284; Q9967; J2405; J7030

== ENCOUNTER 2024-06-27 21:46 | Emergency (ER) | payer OTHER ==
--- OUTSIDE RECORDS SUMMARY | 2024-06-27 21:53 | XMS REPORT | Continuity of Care Document ---
Author Name Unknown Address [address] [facility] [address] [place] [address] [facility] thconnect Address [address] [facility] [place] [address] Care Team Providers Care Fabrication Supervisor Name Role Phone Pcp, Patient Does Not Have A Primary Care Physic adry MICHAEL BRAVO Attending Clinician Unavailable BROOKLYNN AGUILAR Attending Clinician Unavailable NANCY WEST Attending Clinician Unavailabl e Campaigns, Generic Provider Attending Clinician Unavailable ELDA THOMPSON Attending Clinician Unavailab Pablo Burch MD Attending Clinician [phone] Elda Thompson DO Attending Clinician [phone] GENESIS MONTGOMERY Attending Clinician Unavailab barbara JUARES Attending Clinician Unavailable Nabil Almanzar RN Attending Clinician Unavail able LAZARO HUNTER Attending Clinician Unavailable Augustin Kincaid Attending Clinician + [phone] Esa Ko DO Attending Clinician [phone] Lazaro Hunter MD Attending Clinician [phone] Syeda Alberts Attending Clinician [phone]- [phone] SYEDA PERSAUD Attending Clinician Unavailable Doctor Unassigned, Gause Attending Clinician U navailable LAZARO HUNTER Admitting Clinician Unavailable Lazaro Hunter MD Admitting Clinician [phone] Payers Payer Name Policy Type Policy Number Effective Date Expirati on Date Source MICHELET HANSON SILVER 5 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 94 ON 9 [id number] 2023 00:00:00 Problems Condition Name Condition Details Condition Category Status Onset Date Resolution Date Last Treatment Date Treating Clinician Comments Source 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 Disease Active - 00:00: 00 [facility] Gastropare sis Gastropare sis Disease Active 01-06 00:00: 00 [facility] Current moderate episode of major depressive disorder Current moderate episode of major depressive disorder Disease Active 3- 00:00: 00 Parvin Brunsonold - Externa l DM (diabetes mellitus) (multi HCC) DM (diabetes mellitus) (multi HCC) Disease Active - 00:00: 00 Parvin Brunsonold - Externa l Type 1 diabetes mellitus with hyperglyce tess (multi HCC) Type 1 diabetes mellitus with hyperglyce tess (multi HCC) Disease Active 10-06 00:00: 00 Parvin Semichaelold - Externa l Chronic pancreatit is (multi HCC) Chronic pancreatit is (multi HCC) Disease Active 2- 00:00: 00 Parvin Brunsonold - Externa l HTN (hypertens ion) HTN (hypertens ion) Disease Active 2- 00:00: 00 Parvin Brnusonold - Externa l Elevated liver function tests Elevated liver function tests Disease Active - 00:00: 00 Parvin Brunsonold - Externa l Acute on chronic pancreatit is Acute on chronic pancreatit is Disease Active 1-08 00:00: 00 [facility] Epigastric pain Epigastric pain Disease Active 1- 00:00: 00 [facility] Obesity (BMI 30-39.9) Obesity (BMI 30-39.9) Disease Active -12 00:00: 00 [facility] Mesenteric adenitis Mesenteric adenitis Disease Active 2009-09 2- 00:00: 00 [facility] Pancreatit is Pancreatit is Disease Active 2009-09 00:00: 00 [facility] Abdominal pain Abdominal pain Disease Active 2009-09 00:00: 00 [facility] Other acne Other acne Disease Active 04-13 00:00: 00 [facility] Viral warts Viral warts Disease Active 04-13 00:00: 00 Overview: Formattin g of this note might be different from the original. Right [id number] Diagnosis Term Material Movers Utility [facility] Allergies, Adverse Reactions, Alerts Allergy Name Allergy Type Status Severity Reaction(s) Onset Date Inactive Date Treating Clinician Comments Source NO KNOWN ALLERGIE S Drug Class Active [facility] Social History Social Habit Start Date Stop Date Quantity Comments Source History of tobacco use Cigarette Smoker Parvin Lee External Sexual orientation U [facility] History SDOH Social Connections Get Together [facility] History SDOH Social Connections Confucianist [facility] History SDOH Social Connections Membership [facility] History SDOH Social Connections Meetings [facility] Alcoholic beverage intake 2023-11-29 00:00:00 2023-11-29 00:00:00 [...] Cigarette pack-years 2023-10-06 00:00:00 2023-10-06 00:00:00 Parvin Lee External History SDOH Physical Activity MPS 2022-09-13 00:00:00 2022-09-13 00:00:00 3 [facility] History SDOH Financial 2022-09-13 00:00:00 2022-09-13 00:00:00 5 [facility] History SDOH Food Worry 2022-09-13 00:00:00 2022-09-13 00:00:00 1 [facility] History SDOH Food Scarcity 2022-09-13 00:00:00 2022-09-13 00:00:00 1 [facility] History SDOH Transport Med 2022-09-13 00:00:00 2022-09-13 00:00:00 2 [facility] History SDOH Transport Non-Med 2022-09-13 00:00:00 2022-09-13 00:00:00 2 [facility] History of Social function 2022-09-13 00:00:00 2022-09-13 00:00:00 [facility] History SDOH Alcohol Frequency 2022-09-13 00:00:00 2022-09-13 00:00:00 1 [facility] History SDOH Alcohol Std Drinks 2022-09-13 00:00:00 2022-09-13 00:00:00 0 [facility] History SDOH Alcohol Binge 2022-09-13 00:00:00 2022-09-13 00:00:00 1 [facility] History SDOH Social Connections Phone 2022-09-13 00:00:00 2022-09-13 00:00:00 5 [facility] History SDOH Social Connections Living 2022-09-13 00:00:00 2022-09-13 00:00:00 5 [facility] History SDOH Physical Activity DPW 2022-09-13 00:00:00 2022-09-13 00:00:00 4 [facility] Tobacco use and exposure 2022-09-12 00:00:00 2022-09-12 00:00:00 Smokeless tobacco non-user [facility] Exposure to SARS-CoV-2 (event) 2022-09-01 00:00:00 2022-09-11 13:58:00 Not sure [facility] Sex assigned at 1995 00:00:00 1995 00:00:00 Parvin Chowdhury Smoking Status Start Date Stop Date Source Occasional tobacco smoker 2023-10-06 00:00:00 Parvin Knowles - External Ex-smoker 2022-09-12 00:00:00 2022-09-12 00:00:00 [facility] Unknown if ever smoked [facility] Medications Ordered Medication Name Filled Medication Name Start Date Stop Date Current Medication? Ordering Clinician Indication Dosage Frequency Signature (SIG) Comments Components Source Insulin Glargine (Basaglar KwikPen) 100 UNIT/ML subcutaneou s Solution Pen-injecto r 01-19 00:00: 00 Yes [id number] 42U Inject 42 units into the skin daily (with breakfast) . Parvin Llanosa l NaCl 0.9% (NS) bolus infusion 500 mL 01-06 19:00: 00 01-06 19:58 :00 No 500mL at 999 mL/hr, 500 mL, IV Infusion, ONCE, 1 dose, On 01/07/24 at 1400, STAT [facility] haloperidol lactate (HALDOL) injection 2.5 mg 01-06 18:00: 00 01-06 18:14 :00 No 2.5mg 2.5 mg, Intravenou s, ONCE, 1 dose, On 01/07/24 at 1300, [facility] insulin regular human (HUMULIN R) injection 8 Units 01-06 17:45: 00 01-06 17:04 :00 No 8U 8 Units, IV Push, ONCE, 1 dose, On 01/07/24 at 1245, MARITA
In dication for insulin: Hyperglyce tess [facility] ketorolac (TORADOL) injection 15 mg 01-06 16:30: 00 01-06 16:01 :00 No 15mg 15 mg, Slow IV Push, ONCE, 1 dose, On 01/07/24 at 1130, MARITA [facility] maalox:diph enhydrAMINE :lidocaine 2 % viscous 1:1:1 ([facility]) oral suspension 15 mL 01-06 15:30: 00 01-06 16:01 :00 No 15mL 15 mL, Oral, ONCE, 1 dose, On 01/07/24 at 1030, Routine [facility] NaCl 0.9% (NS) bolus infusion 1,000 mL 01-06 14:15: 00 01-06 16:02 :00 No 1000mL at 999 mL/hr, 1,000 mL, IV Piggyback, ONCE, 1 dose, On 01/07/24 at 0915, STAT [facility] Sertraline HCl 25 MG oral Tablet 12-20 00:00: 00 Yes [id number] 25mg Take 1 tablet (25 mg total) by mouth daily. Parvin siegel Sertraline HCl 25 MG oral Tablet 11-28 00:00: 00 Yes [id number] 25mg Take 1 tablet (25 mg total) by mouth daily. Parvin siegel Insulin Glargine (Basaglar KwikPen) 100 UNIT/ML subcutaneou s Solution Pen-injecto r 11-28 00:00: 00 Yes [id number] 9101 42U Inject 42 units into the skin daily (with breakfast) 40 units sc daily. Parvin siegel Continuous Blood Gluc Sensor (Dexcom G6 Sensor) does not apply Misc 11-28 00:00: 00 Yes [id number] Check BS continuous ly. Parvin siegel Continuous Blood Gluc Transmit (Dexcom G6 Transmitter ) does not apply Misc 11-28 00:00: 00 Yes [id number] Check BS continousl y. Parvin siegel Continuous Blood Gluc Telegraph Office Manager (Dexcom G6 Telegraph Office Manager) does not apply Device 11-28 00:00: 00 Yes [id number] Check BS continuous ly. Parvin siegel Mirtazapine 15 MG oral Tablet 11-17 00:00: 00 11-28 00:00 :00 No 15mg Take 1 tablet (15 mg total) by mouth nightly. Parvin siegel Insulin Pen Needle (BD Pen Needle Connie 2nd Gen) 32G X 4 MM does not apply Misc 10-28 00:00: 00 Yes [id number] 9101 Use as directed. Parvin siegel Metoprolol Tartrate (LOPRESSOR) 25 MG oral Tablet 10-27 00:00: 00 Yes [id number] 25mg Take 1 tablet (25 mg total) by mouth daily. Parvin siegel Insulin Glargine (Basaglar KwikPen) 100 UNIT/ML subcutaneou s Solution Pen-injecto r 10-27 00:00: 00 Yes [id number] 9101 40 units sc daily. Parvin siegel Insulin NPH Isophane & Regular (NOVOLIN 70/30 SC) 10-06 10:25: 45 10-06 00:00 :00 No 60U Inject 60 units into the skin daily. Parvin siegel Metoprolol Tartrate (LOPRESSOR) 25 MG oral Tablet 10-06 00:00: 00 Yes [id number] 25mg Take 1 tablet (25 mg total) by mouth daily. Parvin siegel Insulin Glargine (Basaglar KwikPen) 100 UNIT/ML subcutaneou s Solution Pen-injecto r 10-06 00:00: 00 Yes [id number] 9101 40 units sc daily. Parvin siegel Continuous Blood Gluc Telegraph Office Manager (Dexcom G6 Telegraph Office Manager) does not apply Device 10-06 00:00: 00 Yes [id number] Check BS continuous ly. Parvin siegel Continuous Blood Gluc Sensor (Dexcom G6 Sensor) does not apply Misc 10-06 00:00: 00 Yes [id number] Check BS continuous ly. Parvin siegel Continuous Blood Gluc Transmit (Dexcom G6 Transmitter ) does not apply Misc 10-06 00:00: 00 Yes [id number] Check BS continousl y. Parvin Llanosa christal Continuous Blood Gluc Telegraph Office Manager (Dexcom G6 Telegraph Office Manager) does not apply Device 10-06 00:00: 00 Yes [id number] Check BS continuous ly. Parvin Greenmichaelrenita Gonsales christal Continuous Blood Gluc Sensor (Dexcom G6 Sensor) does not apply Misc 10-06 00:00: 00 Yes [id number] Check BS continuous ly. Parvin Greenmichaelrenita Llanosa christal Continuous Blood Gluc Transmit (Dexcom G6 Transmitter ) does not apply Misc 10-06 00:00: 00 Yes [id number] Check BS continousl y. Parvin Greentheodore Rosa Ilda siegel Gabapentin 100 MG oral Capsule 10-06 00:00: 00 11-28 00:00 :00 No [id number] 100mg [id number] 3D Take 1 capsule (100 mg total) [...] (two) times daily before breakfast and dinner. [facility] insulin NPH and regular human 70-30 (NOVOLIN 70/30 U-100 INSULIN) 100 unit/mL (70-30) injection 09-14 00:00: 00 Yes [id number] 60U inject 60 Units under the skin 2 (two) times daily before breakfast and dinner. [facility] atorvastati n 40 mg tablet 09-14 00:00: 00 10-15 05:59 :00 No [id number] 40mg Take 1 tablet by mouth at bedtime for 30 days. [facility] lisinopriL 10 mg tablet 09-14 00:00: 00 10-15 05:59 :00 No [id number] 10mg Take 1 tablet by mouth in the morning and 1 tablet in the evening. Do all this for 30 days. [facility] morpHINE (4 mg/mL) injection 4 mg 09-13 09:53: 10 Yes 4mg 4 mg, Slow IV Push, Q4HPRN, Starting on Tue09/13/22 at 0353, Until Discontinu ed, Routine, Pain (scale 7-10) [facility] atorvastati n (LIPITOR) tablet 40 mg 09-13 03:00: 00 Yes 40mg 40 mg, Oral, QHS, First dose on 09/12/22 at 2100, Until Discontinu ed, Routine [facility] lisinopriL (PRINIVIL,Z ESTRIL) tablet 10 mg 09-12 14:45: 00 Yes 10mg 10 mg, Oral, BID, First dose (after last modificati on) on 09/12/22 at 0845, Until Discontinu ed, Routine [facility] KCL (KLOR-CON M20) tablet 40 mEq 09-12 13:45: 00 09-12 14:15 :00 No 40meq 40 mEq, Oral, ONCE, 1 dose, On Tue09/12/22 at 0745, Routine [facility] potassium chloride in water 10 mEq/100 mL RTU 10 mEq 09-12 13:00: 00 09-12 16:20 :00 No 10meq 10 mEq, IV Piggyback, Q1H, 2 doses, First dose on 09/12/22 at 0700, Last dose on 09/12/22 at 0800, Administer over 60 Minutes, 100 mL [facility] lisinopriL (PRINIVIL,Z ESTRIL) tablet 5 mg 09-12 05:00: 00 09-12 14:35 :46 No 5mg 5 mg, Oral, BID, First dose on Tue09/11/22 at 2300, Until Discontinu ed, Routine [facility] lactated ringers IV infusion 1,000 mL 09-12 03:15: 00 Yes 1000mL at 150 mL/hr, 1,000 mL, IV Infusion, CONTINUOUS , Starting on 09/11/22 at 2115, Until Discontinu ed, Routine [facility] Sliding Scale Insulin - Lispro (HumaLOG) + Fsbg Testing 09-11 23:00: 00 Yes Subcutaneo us, TID MEALS+HS, First dose on 09/11/22 at 1700, Until Discontinu ed, Routine [facility] enoxaparin (LOVENOX) injection 40 mg 09-11 23:00: 00 Yes 40mg 40 mg, Subcutaneo us, DAILY, First dose on 09/11/22 at 1700, Until Discontinu ed, Routine [facility] lactated ringers IV infusion 1,000 mL 09-11 19:15: 00 09-12 03:05 :27 No 1000mL at 125 mL/hr, 1,000 mL, IV Infusion, CONTINUOUS , Starting on 09/11/22 at 1315, Until 09/11/22 at 2105, Routine [facility] lactated ringers IV infusion 1,000 mL 09-11 19:00: 00 09-11 19:56 :58 No 1000mL at 999 mL/hr, 1,000 mL, Intravenou s, ONCE, 1 dose, On 09/11/22 at 1300, Routine [facility] NaCl 0.9% (NS) IV infusion 1,000 mL 09-11 18:15: 00 09-11 19:00 :00 No 1000mL at 999 mL/hr, Intravenou s, ONCE, 1 dose, On 09/11/22 at 1215, MARITA [facility] FENTanyl PF (SUBLIMAZE (PF)) injection 50 mcg 09-11 18:05: 00 09-11 18:10 :00 No 50ug 50 mcg, Slow IV Push, ONCE, 1 dose, On 09/11/22 at 1215, [facility] ondansetron (ZOFRAN (PF)) injection 4 mg 09-11 18:05: 00 09-11 18:09 :00 No 4mg 4 mg, Slow IV Push, ONCE, 1 dose, On 09/11/22 at 1215, MARITA [facility] glucagon (GLUCAGEN DIAGNOSTIC KIT) injection 1 mg 09-11 18:04: 12 Yes 1mg 1 mg, Intramuscu lar, PRN, Starting on 09/11/22 at 1204, Until Discontinu ed, MARITA, Blood Glucose < or = 70 mg/dL and patient is unable to swallow or has mental changes. [facility] dextrose 50 % in water (D50W) injection 25 mL 09-11 18:04: 12 Yes 25mL 25 mL, Slow IV Push, PRN, Starting on 09/11/22 at 1204, Until Discontinu ed, MARITA, Blood Glucose < or = 70 mg/dL and patient is unable to swallow or has mental status changes. [facility] ondansetron (ZOFRAN (PF)) injection 4 mg 09-11 18:04: 03 Yes 4mg 4 mg, Slow IV Push, Q6HPRN, Starting on 09/11/22 at 1204, Until Discontinu ed, Routine, Nausea and Vomiting (N/V) [facility] morpHINE (2 mg/mL) injection 2 mg 09-11 18:03: 52 09-12 18:02 :52 No 2mg 2 mg, Slow IV Push, Q4HPRN, Starting on 09/11/22 at 1203, Until 09/12/22 at 1202, Routine, Pain (scale 7-10) [facility] HYDROcodone -acetaminop hen (NORCO 5) 5-325 mg tablet 1 tablet 09-11 18:03: 48 09-13 18:02 :48 No 1{tbl} 1 tablet, Oral, Q6HPRN, Starting on 09/11/22 at 1203, Until 09/13/22 at 1202, Routine, Pain (scale 4-6) [facility] acetaminoph en (TYLENOL) tablet 650 mg 09-11 18:03: 39 Yes 650mg 650 mg, Oral, Q6HPRN, Starting on 09/11/22 at 1203, Until Discontinu ed, Routine, Pain (scale 1-3) [facility] insulin NPH and regular human 70-30 (70-30 U-100 INSULIN) 100 unit/mL (70-30) injection 60 Units 09-11 18:03: 00 09-11 18:54 :00 No 60U 60 Units, Subcutaneo us, ONCE, 1 dose, On 09/11/22 at 1215, [facility] FENTanyl PF (SUBLIMAZE (PF)) injection 50 mcg 09-11 16:38: 00 09-11 16:41 :00 No 50ug 50 mcg, Slow IV Push, ONCE, 1 dose, On 09/11/22 at 1045, [facility] iopamidol (ISOVUE 370-500 mL) injection 78 mL 09-11 16:35: 00 09-11 16:45 :00 No [id number] 78mL 78 mL, Intravenou s, ONCE, 1 dose, On 09/11/22 at 1045, Routine [facility] ondansetron (ZOFRAN (PF)) injection 4 mg 09-11 15:45: 00 09-11 15:50 :00 No [id number] 4mg 4 mg, Slow IV Push, ONCE, 1 dose, On 09/11/22 at 0945, [facility] famotidine (PEPCID (PF)) injection 20 mg 09-11 15:45: 00 09-11 15:50 :00 No [id number] 20mg 20 mg, Slow IV Push, ONCE, 1 dose, On 09/11/22 at 0945, [facility] NaCl 0.9% (NS) IV infusion 1,000 mL 09-11 15:33: 00 09-11 17:00 :00 No [id number] 1000mL at 999 mL/hr, Intravenou s, ONCE, 1 dose, On 09/11/22 at 0945, [facility] sodium chloride (NS) injection 5 mL 09-11 15:32: 59 Yes [id number] 5mL 5 mL, Intravenou s, PRN, Starting on 09/11/22 at 0932, Until Discontinu ed, Routine, IV line flushing [facility] maalox:diph enhydrAMINE :lidocaine 2 % viscous 1:1:1 ([facility]) oral suspension 15 mL 11-08 20:45: 00 11-08 20:39 :00 No 15mL 15 mL, Oral, ONCE, 1 dose, 11/08/20 at 1445, [facility] insulin regular human (HUMULIN R) injection 9 Units 11-08 20:30: 00 11-08 19:39 :00 No 9U 9 Units, Slow IV Push, ONCE, 1 dose, 11/08/20 at 1430, STAT [facility] ondansetron (ZOFRAN (PF)) injection 4 mg 11-08 19:45: 00 11-08 18:49 :00 No 4mg 4 mg, Slow IV Push, ONCE, 1 dose, 11/08/20 at 1345, [facility] morpHINE injection 4 mg 11-08 19:45: 00 11-08 18:49 :00 No 4mg 4 mg, Slow IV Push, ONCE, 1 dose, 11/08/20 at 1345, STAT [facility] NaCl 0.9% (NS) bolus infusion 1,000 mL 11-08 19:30: 00 11-08 20:37 :00 No 1000mL at 999 mL/hr, 1,000 mL, IV Infusion, ONCE, 1 dose, 11/08/20 at 1330, [facility] NaCl 0.9% (NS) bolus infusion 1,000 mL 11-08 18:30: 00 11-08 19:39 :00 No 1000mL at 999 mL/hr, 1,000 mL, IV Infusion, ONCE, 1 dose, 11/08/20 at 1230, MARITA [facility] ondansetron (ZOFRAN ODT) 4 mg disintegrat ing tablet 11-08 00:00: 00 09-11 00:00 :00 No [id number] 4mg Take 1 tablet by mouth every 8 (eight) hours as needed for Nausea and Vomiting (N/V). [facility] dicyclomine 20 mg tablet 11-08 00:00: 00 09-11 00:00 :00 No [id number] 20mg Take 1 tablet by mouth 4 (four) times daily as needed for Abdominal pain. [facility] No known medications No Un [facility] Vital Signs Vital Name Observation Time Observation Value Comments S ource Systolic blood pressure 2024-01-07 20:00:00 118 mm[Hg] [facility] Diastolic blood pressure 2024-01-07 20:00:00 91 mm[Hg] [facility] Heart rate 2024-01-07 20:00:00 82 /min [facility] Respiratory rate 2024-01-07 20:00:00 16 /min [facility] Oxygen saturation in Arterial blood by Pulse oximetry 2024-01-07 20:00:00 97 /min [facility] Body temperature 2024-01-07 13:13:00 36.94 Zenaida [facility] Body weight 2024-01-07 13:13:00 95.255 kg [facility] BMI 2024-01-07 13:13:00 31.01 kg/m2 [facility] Body height 2024-01-07 13:11:00 175.3 cm [facility] Systolic blood pressure 2023-11-29 15:36:00 115 [...] External BMI 2023-11-29 15:36:00 30.71 kg/m2 Emma gallardo Seybold - External Oxygen saturation in Arterial blood by Pulse oximetry 2023-11-29 15:36:00 100 /min Parvin Seybo ld - External Systolic blood pressure 2023-10-06 16:21:00 135 mm[Hg] Parvin Seybo ld - External Diastolic blood pressure 2023-10-06 16:21:00 90 mm[Hg] Parvin Seybo ld - External Heart rate 2023-10-06 15:48:00 123 /min Jennifer davenport Seybold - External Body temperature 2023-10-06 15:48:00 [...] Systolic blood pressure 2022-09-14 17:21:00 130 mm[Hg] [facility] Diastolic blood pressure 2022-09-14 17:21:00 93 mm[Hg] [facility] Heart rate 2022-09-14 17:21:00 87 /min [facility] Body temperature 2022-09-14 17:21:00 35.56 Zenaida [facility] Respiratory rate 2022-09-14 17:21:00 18 /min [facility] Oxygen saturation in Arterial blood by Pulse oximetry 2022-09-14 17:21:00 98 /min [facility] Body weight 2022-09-14 09:02:00 98.476 kg [facility] BMI 2022-09-14 09:02:00 32.06 kg/m2 [facility] Body height 2022-09-11 19:14:00 175.3 cm [facility] Systolic blood pressure 2020-11-08 21:00:00 136 mm[Hg] [facility] Diastolic blood pressure 2020-11-08 21:00:00 95 mm[Hg] [facility] Heart rate 2020-11-08 21:00:00 93 /min [facility] Respiratory rate 2020-11-08 21:00:00 16 /min [facility] Oxygen saturation in Arterial blood by Pulse oximetry 2020-11-08 21:00:00 98 /min [facility] Body temperature 2020-11-08 18:12:00 36.44 Zenaida [facility] Body height 2020-11-08 18:12:00 175.3 cm [facility] Body weight 2020-11-08 18:12:00 92.987 kg [facility] BMI 2020-11-08 18:12:00 30.27 kg/m2 [facility] Procedures Procedure Date / Time Performed Performing Clinician Source POCT GLUCOSE (AUTOMATED) 2024-01-07 19:35:00 Donna [facility] URINE DRUG (IMMUNOASSAY) - COMPREHENSIVE DRUG SCREEN 2024-01-07 18:28:00 Donna [facility] URINALYSIS 2024-01-07 18:28:00 Fercho Baugh [facility] POCT GLUCOSE (AUTOMATED) 2024-01-07 17:37:00 Donna [facility] LIPASE 2024-01-07 13:41:00 Fercho Baugh [facility] COMP. METABOLIC PANEL ([id number]) 2024-01-07 13:41:00 Lupis Fercho [facility] CBC WITH DIFF 2024-01-07 13:41[facility] 2022-09-14 17:22:00 Jadiel Hunter [facility] LIPASE 2022-09-14 11:57:00 Michael Jung [facility] BASIC METABOLIC PANEL (NA, K, CL, CO2, GLUCOSE, BUN, CREATININE, CA) 2022-09-14 11:57:00 Michael Jung [facility] LIPID PANEL ([id number])(TOTAL CHOLESTEROL, TRIGLYCERIDES, HDL) 2022-09-14 11:57:00 Michael Jung [facility] CBC WITH DIFF 2022-09-14 11:57:00 Michael Jung [facility] POCT GLUCOSE (AUTOMATED) 2022-09-14 02:35:00 Jadiel Hunter [facility] POCT GLUCOSE (AUTOMATED) 2022-09-13 22:59:00 Jadiel Hunter [facility] POCT GLUCOSE (AUTOMATED) 2022-09-13 17:43:00 Jadiel Hunter [facility] POCT GLUCOSE (AUTOMATED) 2022-09-13 13:30:00 Jadiel Hunter yazmin [facility] BASIC METABOLIC PANEL (NA, K, CL, CO2, GLUCOSE, BUN, CREATININE, CA) 2022-09-13 09:26:00 Emy Hyde [facility] POCT GLUCOSE (AUTOMATED) 2022-09-12 22:34:00 Jadiel Hunter [facility] POCT GLUCOSE (AUTOMATED) 2022-09-12 17:15:00 Jadiel Hunter yazmin [facility] POCT GLUCOSE (AUTOMATED) 2022-09-12 13:44:00 Jadiel Hunter [facility] MAGNESIUM 2022-09-12 09:07:00 Lazaro Hunter [facility] HEPATIC FUNCTION PANEL ([id number]) (ALB,T.PRO,BILI T,BU/BC,ALT,AST,ALK PHOS) 2022-09-12 09:07:00 [place] (NA, K, CL, CO2, GLUCOSE, BUN, CREATININE, CA) 2022-09-12 09:07:00 Emy Hyde [facility] LIPID PANEL ([id number])(TOTAL CHOLESTEROL, TRIGLYCERIDES, HDL) 2022-09-12 09:07:00 Lazaro Hunter [facility] CBC WITH DIFF 2022-09-12 09:07:00 Emy Hyde [facility] POCT GLUCOSE (AUTOMATED) 2022-09-12 09:01:00 Salma Ko [facility] POCT GLUCOSE (AUTOMATED) 2022-09-12 02:38:00 Salma Ko [facility] POCT GLUCOSE (AUTOMATED) 2022-09-11 22:42:00 Salma Ko [facility] POCT GLUCOSE (AUTOMATED) 2022-09-11 18:57:00 Mateus [facility] POCT GLUCOSE(AGE >30DAYS) 2022-09-11 17:22:00 Mateus [facility] POCT GLUCOSE (AUTOMATED) 2022-09-11 17:21:[address] [facility] CT ABDOMEN PELVIS W CONTRAST 2022-09-11 16:38:00 Mateus [facility] POCT GLUCOSE (AUTOMATED) 2022-09-11 15:59:00 Mateus [facility] LIPASE 2022-09-11 15:48:00 [facility] COMP. METABOLIC PANEL (98550) 2022-09-11 15:48:00 Augustin Ignacio [facility] CBC WITH DIFF 2022-09-11 15:48:00 Augustin Ignacio [facility] GLYCOSYLATED HEMOGLOBIN (A1C) 2022-09-11 15:48:00 Esa Ko [facility] URINALYSIS 2022-09-11 15:46:00 [facility] CONSENT/REFUSAL FOR DIAGNOSIS AND TREATMENT 2022-09-11 15:16:37 Doctor Unassigned, Gause [facility] POCT GLUCOSE (AUTOMATED) 2020-11-08 20:26:00 Syeda Persaud [facility] LIPASE 2020-11-08 18:29:00 [facility] (34223[facility] (ALB,T.PRO,BILI T,BU/BC,ALT,AST,ALK PHOS) 2020-11-08 18:29:00 [facility] (NA, K, CL, CO2, GLUCOSE, BUN, CREATININE, CA) 2020-11-08 18:29:00 Ramses [facility] CBC WITH DIFF 2020-11-08 18:29:00 Persaud Syeda [facility] URINALYSIS 2020-11-08 18:29[facility]AC[facility] PRACT[facility] 2020-11-08 18:06:16 Doctor Unassigned, [facility] CONSENT/REFUSAL FOR DIAGNOSIS AND TREATMENT 2020-11-08 18:06:04 Doctor Unassigned, [facility] Encounters Start Date/Time End Date/Time Encounter Type Admission Type Attending [facility] Care Facility Care Department Encounter ID Source 2021-09-30 12:34:[address] [facility] [id number] [facility] 2024-05-10 00:00:00 2024-05-10 00:00:00 Outpatient MICHAEL BRAVO [id number] [facility] 2024-04-01 00:00:00 2024-04-01 00:00:00 Outpatient MICHAEL BRAVO [id number] [facility] 2024-03-30 00:00:00 2024-03-30 00:00:00 Outpatient MICHAEL BRAVO [id number] [facility] 2024-03-29 00:00:00 2024-03-29 00:00:00 Outpatient MICHAEL BRAVO [id number] [facility] 2024-03-27 00:00:00 2024-03-27 00:00:00 Outpatient MICHAEL BRAVO [id number] [facility] 2024-03-16 00:00:00 2024-03-16 00:00:00 Outpatient MICHAEL BRAVO [id number] [facility] 2024-02-28 16:15:00 2024-02-28 16:15:00 Outpatient PARVIN HERNÁNDEZ [id number] [facility] 2024-02-28 00:00:00 2024-02-28 00:00:00 Outpatient PREZAMICHAEL Saini [id number] [facility] 2024-02-27 00:00:00 2024-02-27 00:00:00 Outpatient PREZAMICHAEL Saini [id number] [facility] 2024-02-27 00:00:00 2024-02-27 00:00:00 Outpatient PREZAMICHAEL Saini PARVIN [id number] [facility] 2024-02-21 15:30:00 2024-02-21 15:30:00 Outpatient BROOKLYNN AGUILAR PARVIN [id number] [facility] 2024-02-21 00:00:00 2024-02-21 00:00:00 Outpatient ANTWONBROOKLYNN Basurto PARVIN [id number] [facility] 2024-01-23 14:15:00 2024-01-23 14:15:00 Outpatient NANCY WESTSEY PARVIN [id number] [facility] 2024-01-20 00:00:00 2024-01-20 00:00:00 Outpatient MICHAEL BRAVO PAR[facility]IN [id number] [facility] 2024-01-18 00:00:00 2024-01-18 11:18:00 Letter (Out) Campaigns, Generic Provider [facility] 1.2.840.114 350.1.13.10 4.2.7.2.686 [id number] [facility] 2024-01-10 00:00:00 2024-01-10 00:00:00 Outpatient MICHAEL BRAVO PARVIN [id number] [facility] 2024-01-09 10:30:00 2024-01-09 10:30:00 Outpatient PREZASMICHAEL PARVIN HERNÁNDEZ [id number] [facility] 2024-01-07 08:13:00 2024-01-07 15:06:00 Emergency ELDA DUMONT [facility] ERT [id number] [facility] 2024-01-07 08:13:00 2024-01-07 15:06:00 Emergency Pablo [facility] 1.2.840.114 350.1.13.10 4.2.7.2.686 [id number] [facility] 2023-12-30 15:30:00 2023-12-30 15:30:00 Outpatient PREZAS, MICHAELFABIOLA HERNÁNDEZ [id number] [facility] 2023-12-27 16:30:00 2023-12-27 16:30:00 Outpatient PARVIN HERNÁNDEZ [id number] [facility] 2023-12-21 00:00:00 2023-12-21 00:00:00 Outpatient PREZAParveen, MICHAEL HERNÁNDEZ [id number] [facility] 2023-12-13 00:00:00 2023-12-13 00:00:00 Outpatient PREZAS, MICHAELFABIOLA HERNÁNDEZ [id number] [facility] 2023-12-05 00:00:00 2023-12-05 00:00:00 Outpatient PREZAParveen MICHAEL HERNÁNDEZ [id number] [facility] 2023-11-29 10:30:00 2023-11-29 10:30:00 Outpatient PREZAParveen MICHAEL HERNÁNDEZ [id number] [facility] 2023-11-28 14:00:00 2023-11-28 14:00:00 Outpatient GENESIS MONTGOMERY [id number] [facility] 2023-11-28 00:00:00 2023-11-28 00:00:00 Outpatient PREZAMICHAEL Saini [id number] [facility] 2023-11-07 00:00:00 2023-11-07 00:00:00 Outpatient PREZAS, MICHAEL HERNÁNDEZ [id number] [facility] 2023-10-27 00:00:00 2023-10-27 00:00:00 Outpatient PREZAS, MICHAEL HERNÁNDEZ [id number] [facility] 2023-10-26 00:00:00 2023-10-26 00:00:00 Outpatient PREZAS, MICHAEL HERNÁNDEZ [id number] [facility] 2023-10-26 00:00:00 2023-10-26 00:00:00 Outpatient PREZAS, MICHAEL HERNÁNDEZ [id number] [facility] 2023-10-19 16:45:00 2023-10-19 16:45:00 Outpatient PREZAS, MICHAEL HERNÁNDEZ [id number] [facility] 2023-10-18 14:30:00 2023-10-18 14:30:00 Outpatient PARVIN HERNÁNDEZ [id number] [facility] 2023-10-10 00:00:00 2023-10-10 00:00:00 Outpatient PREZAS, MICHAEL HERNÁNDEZ [id number] [facility] 2023-10-07 00:00:00 2023-10-07 00:00:00 Outpatient PREZAS, MICHAEL HERNÁNDEZ [id number] [facility] 2023-10-06 10:45:00 2023-10-06 10:45:00 Outpatient LAB90 PARVIN MONTEIROSEY [id number] [facility] 2023-10-06 09:30:00 2023-10-06 09:30:00 Outpatient PREZAS, MICHAEL MONTEIROSEY [id number] [facility] 2023-08-24 10:15:00 2023-08-24 10:15:00 Outpatient PREZAS, MICHAEL HERNÁNDEZ PARVIN [id number] [facility] 2022-09-15 00:00:00 2022-09-15 00:00:00 Transition of Care Nabil Almanzar 1.2.840.114 350.1.13.10 4.2.7.2.686 [id number] [facility] 2022-09-11 09:26:00 2022-09-14 13:00:00 Inpatient X LAZARO HUNTER [facility] [id number] [facility] 2022-09-11 09:26:00 2022-09-14 13:00:00 Hospital Encounter Mateus Frankvenita Ko, Lazaro Quach [facility] 1.2.840.114 350.1.13.10 4.2.7.2.686 [id number] [facility] 2020-11-08 12:16:00 2020-11-08 15:38:00 Emergency Carolyn [facility] 1.2.840.114 350.1.13.10 4.2.7.2.686 [id number] [facility] 2020-11-08 12:06:00 2020-11-08 12:06:00 Emergency X CAROLYN PERSAUDANNE [facility] ERT [id number] [facility] 2020-11-08 00:00:00 2020-11-08 00:00:00 Orders Only Doctor Unassigned, Gause [facility] 1.2.840.114 350.1.13.10 4.2.7.2.686 [id number] [facility] Results Test Description Test Time Test Comments Results Result Co mments Source [facility] GLUCOSE(AGE >30DAYS)2024-01-07 19:35:00* Test Item Value Reference Range Interpretation Comme [facility] POCT Glu (age>30days) (test code = 3342) 171 mg/dL 70-110 A Lab Interpretation (test cod e = 60563-9) Abnormal [facility] GLUCOSE (AUTOMATED)2024-01-07 17:39:20* Test Item Value Reference Range Interpretation Comme [facility] POCT GLU (test code = 5663907490) 155 mg/dL 70-110 H Lab Interpretation (test cod e = 26450-0) [facility] 14:35:51* Test Item Value Reference Range Interpretation Comme nts LIPASE (test code = 7475610767) 18 U/L 0-220 Lab Interpretation (test cod e = 48138-0) [facility] (57580)2024-01-07 14:35:51* Test Item Value Reference Range Interpretation Comme nts NA (test code = 5722566589) 139 mmol/L 135-145 K (test code = 0945189638) 3.6 mmol/L 3.5-5.0 CL (test code = 7389569953) 100 mmol/L 98-108 CO2 TOTAL (test code = 8511270582) 24 mmol/L 23-31 AGAP (test code = 1712120666) 15 2-16 BUN (test code = 3843156929) 9 mg/dL 7-23 GLUCOSE (test code = 2471786404) 315 mg/dL 70-110 H CREATININE (test code = 2160-0) 0.68 mg/dL 0.60-1.25 TOTAL BILI (test code = 1138111564) 1.1 mg/dL 0.1-1.1 CALCIUM (test code = 9154615115) 9.2 mg/dL 8.6-10.6 T PROTEIN (test code = 4658986359) 7.5 g/dL 6.3-8.2 ALBUMIN (test code = 1970648437) 4.4 g/dL 3.5-5.0 ALK PHOS (test code = 7704570255) 156 U/L 34-122 H ALTv (test code = 1742-6) 62 U/L 5-50 H AST(SGOT) (test code = 2562403962) 52 U/L 13-40 H eGFR (test code = 46426-7) 129.0 mL/min/1.73m2 CKD-EPI eGFR (2020). Assuming creatinine has been stable day-to-day for at least three months, the eGFR indicates Category G1 (>= 90 mL/min/1.73 m2) Lab Interpretation (test code = 14605-0) [facility] [id number] 14:09:10* Test Item Value Reference Range Interpretation [...] g/dL 31.2-35.0 H RDW-SD (test code = 75189-3) 33.4 fL 38.5-51.6 L RDW-CV (test code = 788-0) 11.8 % 12.1-15.4 L PLT (test code = 777-3) 286 150-328 MPV (test code = 32292-5) 11.2 fL 9.8-13.0 NRBC/100 WBC (test code = 1407766133) 0.0 0.0-10.0 NRBC x10^3 (test code = 9269060740) See_Comment [Automated messa ge] The system which generated this result transmitted reference range: 10*3/?L. The reference range was not used to interpret this result as normal/abnormal. GRAN MAT (NEUT) % (test code = 770-8) 65.3 % IMM GRAN % (test code = 9569943540) 0.40 % LYMPH % (test code = 736-9) 21.8 % MONO % (test code = 5905-5) 11.1 % EOS % (test code = 713-8) 1.0 % BASO % (test code = 706-2) 0.4 % GRAN MAT x10^3(ANC) (test code = 3372441258) 5.79 10*3/uL 1.99-6.95 IMM GRAN x10^3 (test code = 5154166899) 0.04 10*3/uL 0.00-0.06 LYMPH x10^3 (test code = 731-0) 1.94 10*3/uL 1.09-3.23 MONO x10^3 (test code = 742-7) 0.99 10*3/uL 0.36-1.02 EOS x10^3 (test code = 711-2) 0.09 10*3/uL 0.06-0.53 BASO x10^3 (test code = 704-7) 0.04 10*3/uL 0.01-0.09 Lab Interpretation (test code = 26005-1) Abnormal [facility] GLUCOSE (AUTOMATED)2022-09-14 18:35:20* Test Item Value Reference Range Interpretation Comme nts POCT GLU (test code = 1421174304) 283 mg/dL 70-110 H Lab Interpretation (test cod e = 48345-5) Abnormal [facility] GLUCOSE (AUTOMATED)2022-09-14 02:40:24* Test Item Value Reference Range Interpretation Comme nts POCT GLU (test code = 5099234964) 191 mg/dL 70-110 H Lab Interpretation (test cod e = 17790-3) Abnormal [facility] GLUCOSE (AUTOMATED)2022-09-13 23:13:20* Test Item Value Reference Range Interpretation Comme nts POCT GLU (test code = 2706165950) 126 mg/dL 70-110 H Lab Interpretation (test cod e = 37976-7) Abnormal [facility] GLUCOSE (AUTOMATED)2022-09-13 17:51:10* Test Item Value Reference Range Interpretation Comme nts POCT GLU (test code = 2219080268) 270 mg/dL 70-110 H Lab Interpretation (test cod e = 20393-4) Abnormal [facility] GLUCOSE (AUTOMATED)2022-09-13 14:08:01* Test Item Value Reference Range Interpretation Comme nts POCT GLU (test code = 6918910874) 177 mg/dL 70-110 H Lab Interpretation (test cod e = 98605-2) Abnormal [facility] GLUCOSE (AUTOMATED)2022-09-12 22:53:55* Test Item Value Reference Range Interpretation Comme nts POCT GLU (test code = 4781922483) 207 mg/dL 70-110 H Lab Interpretation (test cod e = 27645-2) Abnormal [facility] GLUCOSE (AUTOMATED)2022-09-12 18:09:02* Test Item Value Reference Range Interpretation Comme nts POCT GLU (test code = 5915898916) 92 mg/dL 70-110 Lab Interpretation (test cod e = 08835-6) [facility]TOTAL CHOLESTEROL, TRIGLYCERIDES, HDL)2022-09-12 14:58:08* Test Item Value Reference Range Interpretation Comme nts CHOL (test code = 1717016831) 138 mg/dL 120-200 HDL (test code = 0334924015) 23 mg/dL See_Comment L [Automated messa ge] The system which generated this result transmitted reference range: >=40. The reference range was not used to interpret this result as normal/abnormal. HDLC RATIO (test code = 5198184905) See_Comment H [Automated messa ge] The system which generated this result transmitted reference range: <=5.0. The reference range was not used to interpret this result as normal/abnormal. TRIG (test code = 2047690665) 171 mg/dL 30-170 H LDL CHOL (test code = 75135-4) 81 mg/dL See_Comment [Automated messa ge] The system which generated this result transmitted reference range: <=160. The reference range was not used to interpret this result as normal/abnormal. VLDL (test code = 2593219980) 34 mg/dL 5-60 Lab Interpretation (test code = 58908-9) Abnormal [facility] GLUCOSE (AUTOMATED)2022-09-12 13:54:38* Test Item Value Reference Range Interpretation Comme nts POCT GLU (test code = 8078921540) 84 mg/dL 70-110 Lab Interpretation (test cod e = 37457-0) Normal [facility]79734[facility] (ALB,T.PRO,BILI T,BU/BC,ALT,AST,ALK PHOS)2022-09-12 13:03:03* Test Item Value Reference Range Interpretation Comme nts TOTAL BILI (test code = 2949748254) 1.0 mg/dL 0.1-1.1 BILI UNCON (test code = 6003335042) 0.8 mg/dL 0.1-1.1 BILI CONJ (test code = 1457926244) 0.0 mg/dL 0.0-0.3 T PROTEIN (test code = 8735016393) 6.7 g/dL 6.3-8.2 ALBUMIN (test code = 4419147361) 4.0 g/dL 3.5-5.0 ALK PHOS (test code = 2451609303) 106 U/L 34-122 ALTv (test code = 1742-6) 146 U/L 5-50 H AST(SGOT) (test code = 7765155199) 81 U/L 13-40 H Lab Interpretation (test cod e = 53757-7) [facility]normal [facility] 13:02:43* Test Item Value Reference Range Interpretation Comme nts MAGNESIUM (test code = 5495641671) 1.8 mg/dL 1.7-2.4 Lab Interpretation (test cod e = 96368-7) [facility] (NA, K, CL, CO2, GLUCOSE, BUN, CREATININE, CA)2022-09-12 12:10:26* Test Item Value Reference Range Interpretation Comme nts NA (test code = 3827608603) 142 mmol/L 135-145 K (test code = 4494371809) 3.1 mmol/L 3.5-5.0 L CL (test code = 1598914008) 106 mmol/L 98-108 CO2 TOTAL (test code = 7174163628) 24 mmol/L 23-31 AGAP (test code = 0413094243) 2-16 BUN (test code = 2940845624) 8 mg/dL 7-23 GLUCOSE (test code = 4596123545) 73 mg/dL 70-110 CREATININE (test code = 8718233714) 0.72 mg/dL 0.60-1.25 CALCIUM (test code = 1930029598) 8.1 mg/dL 8.6-10.6 L eGFR (test code = 6644142327) mL/min/1.73m2 RAFAEL (test code = RAFAEL) Association [...] imaging tests). Lab Interpretation (test code = 03023-8) Abnormal [facility] WITH [id number] 11:46:12* Test Item Value Reference Range Interpretation Comme nts WBC (test code = 6690-2) See_Comment [Appetas] The system which generated this result transmitted reference range: 4.20 - 10.70 10*3/?L. The reference range was not used to interpret this result as normal/abnormal. RBC (test code = 789-8) See_Comment [[employer]et[employer]] The system which generated this result transmitted [...] 35.0 g/dL 31.2-35.0 RDW-SD (test code = 25602-4) 36.0 fL 38.5-51.6 L RDW-CV (test code = 788-0) 11.9 % 12.1-15.4 L PLT (test code = 777-3) See_Comment [Automated messa ge] The system which generated this result transmitted reference range: 150 - 328 10*3/?L. The reference range was not used to interpret this result as normal/abnormal. MPV (test code = 46575-0) 10.7 fL 9.8-13.0 NRBC/100 WBC (test code = 8083534489) See_Comment [Automated mAPPn ssage] The system which generated this result transmitted reference range: 0.0 - 10.0 /100 WBCs. The reference range was not used to interpret this result as normal/abnormal. NRBC x10^3 (test code = 6609035347) See_Comment [Automated messa ge] The system which generated this result transmitted reference range: 10*3/?L. The reference range was not used to interpret this result as normal/abnormal. GRAN MAT (NEUT) % (test code = 770-8) 50.2 % IMM GRAN % (test code = 0573225381) 0.40 % LYMPH % (test code = 736-9) 37.0 % MONO % (test code = 5905-5) 8.3 % EOS % (test code = 713-8) 3.6 % BASO % (test code = 706-2) 0.5 % GRAN MAT x10^3(ANC) (test code = 2901553352) 4.81 10*3/uL 1.99-6.95 IMM GRAN x10^3 (test code = 0035250685) 0.04 10*3/uL 0.00-0.06 LYMPH x10^3 (test code = 731-0) 3.56 10*3/uL 1.09-3.23 H MONO x10^3 (test code = 742-7) 0.80 10*3/uL 0.36-1.02 EOS x10^3 (test code = 711-2) 0.35 10*3/uL 0.06-0.53 BASO x10^3 (test code = 704-7) 0.05 10*3/uL 0.01-0.09 Lab Interpretation (test code = 86500-8) Abnormal [facility] GLUCOSE (AUTOMATED)2022-09-12 11:19:34* Test Item Value Reference Range Interpretation Comme nts POCT GLU (test code = 0394464931) 70 mg/dL 70-110 Lab Interpretation (test cod e = 43518-0) Normal [facility] GLUCOSE (AUTOMATED)2022-09-12 02:46:59* Test Item Value Reference Range Interpretation Comme nts POCT GLU (test code = 2023944971) 90 mg/dL 70-110 Lab Interpretation (test cod e = 69810-8) Normal [facility] GLUCOSE (AUTOMATED)2022-09-11 23:13:35* Test Item Value Reference Range Interpretation Comme nts POCT GLU (test code = 8031897434) 120 mg/dL 70-110 H Lab Interpretation (test cod e = 51805-8) [facility]normal [facility]2022-09-11 20:41:39* Test Item Value Reference Range Interpretation Comme nts HGB A1C (test code = 4548-4) 10.1 % 4.0-5.7 H RAFAEL (test code = RAFAEL) Reference RangesNormal: <5.7%Prediabetes: 5.7 - 6.4%Diabetes: > 6.5% Lab Interpretation (test code = 80609-6) Abnormal [facility] GLUCOSE (AUTOMATED)2022-09-11 19:01:23* Test Item Value Reference Range Interpretation Comme nts POCT GLU (test code = 6901263624) 302 mg/dL 70-110 H Lab Interpretation (test cod e = 82023-0) Abnormal [facility] GLUCOSE (AUTOMATED)2022-09-11 19:01:23* Test Item Value Reference Range Interpretation Comme nts POCT GLU (test code = 0002981960) 277 mg/dL 70-110 H Lab Interpretation (test cod e = 67153-6) Abnormal [facility] GLUCOSE (AUTOMATED)2022-09-11 19:01:23* Test Item Value Reference Range Interpretation Comme nts POCT GLU (test code = 0300842482) 283 mg/dL 70-110 H Lab Interpretation (test cod e = 51757-3) [facility] >30DAYS[facility]2022-09-11 17:22:00* Test Item Value Reference Range Interpretation Comme nts POCT Glu (age>30days) (test code = 3342) 277 mg/dL 70-110 A Lab Interpretation (test cod e = 01919-1) [facility]normal [facility] [id number] 16:11:48* Test Item Value Reference Range Interpretation Comme nts NA (test code = 8017037261) 137 mmol/L 135-145 K (test code = 4885429672) 4.5 mmol/L 3.5-5.0 CL (test code = 6488766746) 102 mmol/L 98-108 CO2 TOTAL (test code = 5732554077) 22 mmol/L 23-31 L AGAP (test code = 2082093471) 2-16 BUN (test code = 1449299638) 15 mg/dL 7-23 GLUCOSE (test code = 2278632070) 318 mg/dL 70-110 H CREATININE (test code = 4568725283) 0.76 mg/dL 0.60-1.25 TOTAL BILI (test code = 6317446212) 1.5 mg/dL 0.1-1.1 H CALCIUM (test code = 5244457719) 9.1 mg/dL 8.6-10.6 T PROTEIN (test code = 0821922238) 7.7 g/dL 6.3-8.2 ALBUMIN (test code = 2886670928) 5.0 g/dL 3.5-5.0 ALK PHOS (test code = 6319955621) 124 U/L 34-122 H ALTv (test code = 1742-6) 173 U/L 5-50 H AST(SGOT) (test code = 9601268715) 76 U/L 13-40 H eGFR (test code = 2150684311) mL/min/1.73m2 RAFAEL (test code = RAFAEL) Association [...] imaging tests). Lab Interpretation (test code = 31845-8) [facility]normal [facility], [id number] 16:11:22* Test Item Value Reference Range Interpretation Comme [facility] LIPASE (test code = 5307035996) 22 U/L 0-220 Lab Interpretation (test cod e = 79407-3) Normal [facility] with Pozmhvzqxbsi9829-85-09 15:57:05* Test Item Value Reference Range Interpretation Comme nts WBC (test code = 6690-2) See_Comment H [Automated [employer]] The system which generated this result transmitted reference range: 4.20 - 10.70 10*3/?L. The reference range was not used to interpret this result as normal/abnormal. RBC (test code = 789-8) See_Comment [Automated [email or web address]] The system which generated this result transmitted [...] g/dL 31.2-35.0 H RDW-SD (test code = 07466-6) 35.5 fL 38.5-51.6 L RDW-CV (test code = 788-0) 11.8 % 12.1-15.4 L PLT (test code = 777-3) See_Comment [Automated [employer] ge] The system which generated this result transmitted reference range: 150 - 328 10*3/?L. The reference range was not used to interpret this result as normal/abnormal. MPV (test code = 36356-9) 10.3 fL 9.8-13.0 NRBC/100 WBC (test code = 9683329675) See_Comment [Automated mAPPn ssage] The system which generated this result transmitted reference range: 0.0 - 10.0 /100 WBCs. The reference range was not used to interpret this result as normal/abnormal. NRBC x10^3 (test code = 4587734010) See_Comment [Automated [employer]] The system which generated this result transmitted reference range: 10*3/?L. The reference range was not used to interpret this result as normal/abnormal. GRAN MAT (NEUT) % (test code = 770-8) 64.6 % IMM GRAN % (test code = 7121700148) 0.50 % LYMPH % (test code = 736-9) 25.3 % MONO % (test code = 5905-5) 7.3 % EOS % (test code = 713-8) 1.9 % BASO % (test code = 706-2) 0.4 % GRAN MAT x10^3(ANC) (test code = 2334367690) 7.62 10*3/uL 1.99-6.95 H IMM GRAN x10^3 (test code = 7729251755) 0.06 10*3/uL 0.00-0.06 LYMPH x10^3 (test code = 731-0) 2.98 10*3/uL 1.09-3.23 MONO x10^3 (test code = 742-7) 0.86 10*3/uL 0.36-1.02 EOS x10^3 (test code = 711-2) 0.22 10*3/uL 0.06-0.53 BASO x10^3 (test code = 704-7) 0.05 10*3/uL 0.01-0.09 Lab Interpretation (test code = 29393-3) [facility]normal [facility]2020-11-08 20:30:00* Test Item Value Reference Range Interpretation Comme nts POCT GLU (test code = 6945638553) 181 mg/dL 70-110 H Lab Interpretation (test cod e = 20605-0) Abnormal [facility] Metabolic Panel (NA, K, CL, CO2, GLUCOSE, BUN, CREATININE, CA)2020-11-08 18:48:00* Test Item Value Reference Range Interpretation Comme [facility] NA (test code = 3091908977) 134 mmol/L 135-145 L K (test code = 2673060832) 4.0 mmol/L 3.5-5 CL (test code = 6544272649) 96 mmol/L 98-108 L CO2 TOTAL (test code = 5796193780) 29 mmol/L 23-31 AGAP (test code = 4610559700) 2-16 BUN (test code = 5574100541) 10 mg/dL 7-23 GLUCOSE (test code = 0015455172) 368 mg/dL 70-110 H CREATININE (test code = 1691676596) 0.58 mg/dL 0.6-1.25 L CALCIUM (test code = 1038126633) 9.1 mg/dL 8.6-10.6 eGFR Calculation (Non-) (test code = 3442789888) mL/min/1.73m2 eGFR Calculation () (test code = 4819656690) mL/min/1.73m2 RAFAEL (test code = RAFAEL) Association [...] imaging tests). Lab Interpretation (test code = 38927-2) [facility] (ALB, T.PRO, BILI T, BU/BC, ALT, AST, ALK PHOS)2020-11-08 18:48:00* Test Item Value Reference Range Interpretation Comme nts TOTAL BILI (test code = 3441654110) 0.8 mg/dL 0.1-1.1 BILI UNCON (test code = 2479386764) 0.8 mg/dL 0.1-1.1 BILI CONJ (test code = 5403425430) 0.0 mg/dL 0-0.3 T PROTEIN (test code = 7265070388) 7.8 g/dL 6.3-8.2 ALBUMIN (test code = 6692770242) 4.7 g/dL 3.5-5 ALK PHOS (test code = 1407729869) 147 U/L 34-122 H ALTv (test code = 1742-6) 48 U/L 5-50 AST(SGOT) (test code = 1457571324) 42 U/L 13-40 H Lab Interpretation (test cod e = 87785-2) [facility] [id number] 18:48:00* Test Item Value Reference Range Interpretation Comme nts LIPASE (test code = 1640292079) 27 U/L 0-220 Lab Interpretation (test cod e = 84955-4) [facility] 18:39:00* Test Item Value Reference Range Interpretation Comme nts APPEARANCE (test code = 6432384113) Clear Clear COLOR (test code = 8489524899) Yellow Yellow PH (test code = 1887319984) 4.8-8.0 SP GRAVITY (test code = 0426742875) 1.003-1.030 H GLU U QUAL (test code = 8754193576) 500 mg/dL Normal A BLOOD (test code = [id number]) Negative Negative KETONES (test code = 6840070011) 5 mg/dL Negative A PROTEIN (test code = 2887-8) Negative Negative UROBILIN (test code = 8138667781) Normal Normal BILIRUBIN (test code = 0711784704) Negative Negative NITRITE (test code = 7942983715) Negative Negative LEUK ALYSHA (test code = 6364675542) Negative Negative RBC/HPF (test code = 9839926599) See_Comment [[employer]] The system which generated this result transmitted reference range: 0 - 3 HPF. The reference range was not used to interpret this result as normal/abnormal. WBC/HPF (test code = 0711406305) See_Comment [[employer]] The system which generated this result transmitted reference range: 0 - 5 HPF. The reference range was not used to interpret this result as normal/abnormal. BACTERIA (test code = 6511798852) Negative Negative Lab Interpretation (test code = 65271-0) [facility] [id number] 18:36:00* Test Item Value Reference Range Interpretation Comme nts WBC (test code = 6690-2) See_Comment [[employer]] The system which generated this result transmitted reference range: 4.20 - 10.70 10*3/?L. The reference range was not used to interpret this result as normal/abnormal. RBC (test code = 789-8) See_Comment H [[employer]] The system which generated this result [...] g/dL 31.2-35 H RDW-SD (test code = 87405-5) 33.7 fL 38.5-51.6 L RDW-CV (test code = 788-0) 11.5 % 12.1-15.4 L PLT (test code = 777-3) See_Comment H [[employer]] The system which generated this result transmitted reference range: 150 - 328 10*3/?L. The reference range was not used to interpret this result as normal/abnormal. MPV (test code = 85910-9) 10.2 fL 9.8-13 NRBC/100 WBC (test code = 8282063880) See_Comment [Automated [employer]] The system which generated this result transmitted reference range: 0.0 - 10.0 /100 WBCs. The reference range was not used to interpret this result as normal/abnormal. NRBC x10^3 (test code = 9859595803) <0.01 See_Comment [[employer]] The system which generated this result transmitted reference range: 10*3/?L. The reference range was not used to interpret this result as normal/abnormal. GRAN MAT (NEUT) % (test code = 770-8) 60.3 % IMM GRAN % (test code = 8996413334) 0.70 % LYMPH % (test code = 736-9) 29.2 % MONO % (test code = 5905-5) 4.7 % EOS % (test code = 713-8) 3.9 % BASO % (test code = 706-2) 1.2 % GRAN MAT x10^3(ANC) (test code = 9382651375) 6.44 10*3/uL 1.99-6.95 IMM GRAN x10^3 (test code = 1249390130) 0.07 10*3/uL 0-0.06 H LYMPH x10^3 (test code = 731-0) 3.12 10*3/uL 1.09-3.23 MONO x10^3 (test code = 742-7) 0.50 10*3/uL 0.36-1.02 EOS x10^3 (test code = 711-2) 0.42 10*3/uL 0.06-0.53 BASO x10^3 (test code = 704-7) 0.13 10*3/uL 0.01-0.09 H Lab Interpretation (test code = 58430-7) Abnormal [facility] Notes Date/Time Note Provider Source 2024-01-07 12:39:09 Bedside glucose 155. Donita García RN [facility] 2024-01-07 08:29:00 Jimenez Caal is a 28 year old male presents to ED with complaints of abdominal pain, N/V/D x 2 days. Patient reports hx of pancreatitis, states "I think I'm having a flare up." Patient points to midepigastric area when identifying pain, repots tenderness, and rates pain 7 out 10. Patient is AAoX4, RR e/u on RA, NAD. [facility] 2024-01-07 08:12:17 Jimenez Caal is a 28 year old male who presents to the ED ambulatory with complaints of abdominal pain and vomiting x3 days pt reports vomiting 5 times today AOx4. Respirations even and unlabored. Skin warm and dry. NAD noted. Patient to room for further evaluation. Kojo Art RN [facility]
[2024-06-27] MEDS ORDERED: NA CHLORIDE 0.9% 1,000 ML ONE (23:34)
[2024-06-27 23:45] LABS: Absolute Basophils 0.1 K/uL (0-0.5); Absolute Eosinophils 0.1 K/uL (0-0.5); Absolute Lymphocytes (CBC) 2.6 K/uL (0.7-4.9); Absolute Monocytes 0.6 K/uL (0.1-1.3); Absolute Neutrophil 4.9 K/uL (1.8-8.0); Basophils % 1.2 % (0-1.3); Eosinophils % 1.5 % (0-4.4); Hematocrit 44.6 % (39.6-49.0); Hemoglobin 15.4 g/dL (13.6-17.9); Lymphocytes % 30.7 % (15.3-44.8); MCH 29.3 pg (27.0-35.0); MCHC 34.5 g/dL (32.0-36.0); MPV 9.3 fL (7.6-11.3); Monocytes % 7.6 % (3.3-12.3); Platelets 281 thou/uL (152-406); RBC Red Blood Cell Count 5.25 M/uL (4.33-5.43); Red Cell Distribution Width 12.5 % (12.1-15.2)
[2024-06-27 23:57] LABS: Albumin 4.1 g/dL (3.4-5.0); Anion Gap 11.3 mEq/L (5.0-15.0); Bilirubin Total 1.4 mg/dL (0.2-1.0); Globulin 4.1 g/dL (2.3-3.5); Potassium 4.3 mEq/L (3.5-5.1); Protein, Total 8.2 g/dL (6.4-8.2)
[2024-06-27 23:59] LABS: Specific Gravity > 1.030 (1.005-1.030); Sqamous Epithelial <5 /HPF (None Seen); Urine Bacteria None Seen /HPF (<20); Urine Bilirubin NEGATIVE (Negative); Urine Blood Negative (Negative); Urine Clarity Clear (Clear); Urine Color Colorless (Yellow); Urine Culture Reflex Order NOT NEEDED; Urine Glucose 4+ (Over) (Negative); Urine Ketones NEGATIVE (Negative); Urine Microscopic Reflex YN ORDER UMIC; Urine Mucus Slight /HPF (None Seen); Urine Nitrite NEGATIVE (Negative); Urine Protein NEGATIVE (Negative); Urine RBC <5 /HPF (None Seen); Urine Urobilinogen Normal (Normal); Urine WBC None Seen /HPF (<5); Urine pH 5.5 (5.0-7.0)
[2024-06-28] MEDS ORDERED: INSULIN REGULAR (HUMAN) 100 UNIT/ML ONE (00:11)
[2024-06-28] MEDS ORDERED: DICYCLOMINE HCL 20 MG/2 ML AMP IM ONE (00:34)
[2024-06-28] MEDS ORDERED: FAMOTIDINE 20 MG/2 ML VIAL IV ONE (00:34)
[2024-06-28] MEDS ORDERED: DICYCLOMINE HCL 10 MG CAP ONE (00:39)
--- NOTE | 2024-06-28 00:44 | ER ---
Nurse's Notes [facility] Name: Jimenez Patrick Age: 28 yrs Sex: Male : 1995 Arrival Date: 06/27/2024 Time: 21:46 Bed 14 Private MD: Farzad Rahman Diagnosis: Hyperglycemia, unspecified Presentation: 06/27 21:59 Chief complaint: Patient states: Has been out of insulin for the last 4 days. Pt also cm10 complaining of abdominal pain. BGL in triage >500. Coronavirus screen: Client denies travel out of the [place] in the last 14 days. Ebola Screen: Patient denies travel to an Ebola-affected area in the 21 days before illness onset. No symptoms or risks identified at this time. Initial Sepsis Screen: Does the patient meet any 2 criteria? HR > 90 bpm. Does the patient have a suspected source of infection? No. Patient's initial sepsis screen is negative. Risk Assessment: Do you want to hurt yourself or someone else? Patient reports no desire to harm self or others. Onset of symptoms was June 27, 2024. 21:59 Method Of Arrival: Ambulatory cm10 21:59 Acuity: MOSES 3 cm10 Triage Assessment: 22:01 General: Appears in no apparent distress. comfortable, Behavior is calm, cooperative. cm10 Neuro: No deficits noted. Level of Consciousness is awake, alert, obeys commands, Oriented to person, place, time, situation, Appropriate for age. Respiratory: No deficits noted. Airway is patent Respiratory effort is even, unlabored, Respiratory pattern is regular, symmetrical. Historical: - Allergies: 22:01 NKA; cm10 - PMHx: 22:01 Chronic Pancreatitis; Diabetes - IDDM; Hypertensive disorder; cm10 - PSHx: 22:01 Cholecystectomy; I\T\D; stents x 2 in pancreas; cm10 - Immunization history:: Adult Immunizations up to date. - Infectious Disease History:: Denies. - Social history:: Smoking status: Reported history of juuling and/or vaping. Screenin:00 [facility] ED Fall Risk Assessment (Adult) History of falling in the last 3 months, rg5 including since admission No falls in past 3 months (0 pts) Confusion or Disorientation No (0 pts) Intoxicated or Sedated No (0 pts) Impaired Gait No (0 pts) Mobility Assist Device Used No (0 pt) Altered Elimination No (0 pt) Score/Fall Risk Level 0 - 2 = Low Risk Oriented to surroundings, Maintained a safe environment, Hourly rounding (assess needs \T\ fall precautionary measures) done. Abuse screen: Denies threats or abuse. Nutritional screening: No deficits noted. Tuberculosis screening: No symptoms or risk factors identified. Assessment: 22:10 General: Appears in no apparent distress. comfortable, Behavior is calm, cooperative, rg5 appropriate for age. 22:10 Pain: Complains of pain in epigastric area Pain currently is 6 out of 10 on a pain rg5 scale. Quality of pain is described as aching, Pain began 4 hours ago. Neuro: Level of Consciousness is awake, alert, obeys commands, Oriented to person, place, time. Cardiovascular: Heart tones S1 S2 Capillary refill < 3 seconds Patient's skin is warm and dry. Respiratory: Airway is patent Trachea midline Respiratory effort is even, unlabored, Respiratory pattern is regular, symmetrical. GI: Abdomen is round non-distended, Bowel sounds present X 4 quads. Abd is soft and non tender. : No signs and/or symptoms were reported regarding the genitourinary system. EENT: No deficits noted. Derm: Skin is intact, Skin is dry, Skin is normal. Musculoskeletal: Circulation, motion, and sensation intact. Range of motion: intact in all extremities. 23:00 Reassessment: Patient and/or family updated on plan of care and expected duration. Pain rg5 level reassessed. Patient is alert, oriented x 3, equal unlabored respirations, skin warm/dry/pink. 06/28 00:00 Reassessment: Patient and/or family updated on plan of care and expected duration. Pain rg5 level reassessed. Patient is alert, oriented x 3, equal unlabored respirations, skin warm/dry/pink. 01:00 Reassessment: Patient and/or family updated on plan of care and expected duration. Pain rg5 level reassessed. Patient is alert, oriented x 3, equal unlabored respirations, skin warm/dry/pink. Vital Signs: 06/27 21:59 BP 133 / 98; Pulse 105; Resp 19; Temp 98.6(O); Pulse Ox 100% ; Weight 90.72 kg; Height cm10 5 ft. 9 in. ; Pain 6/10; 22:00 BP 123 / 75; Pulse 68; Resp 17; Temp 98; Pulse Ox 95% on R/A; Pain 6/10; rg5 21:59 Body Mass Index 29.53 (90.72 kg, 175.26 cm) cm10 21:59 Pain Scale: Adult cm10 22:00 Pain Scale: Adult rg5 [place] Coma Score: 22:00 Eye Response: spontaneous(4). Motor Response: obeys commands(6). Verbal Response: rg5 oriented(5). Total: 15. ED Course: 21:53 Patient arrived in ED. gm2 21:53 Farzad Rahman DO is Private Physician. gm2 21:56 Marianela Moyer FNP-C is [facility]. kb 21:56 Ethan Harris MD is Attending Physician. kb 22:00 Triage completed. cm10 22:00 Patient has correct armband on for positive identification. Bed in low position. Call rg5 light in reach. Side rails up X 1. 22:00 No provider procedures requiring assistance completed. rg5 22:01 Arm band placed on left wrist. Patient placed in an exam room, on a stretcher. cm10 23:03 Juan Jose Hansen, RN is Primary Nurse. rg5 23:33 Inserted saline lock: 20 gauge in right antecubital area, using aseptic technique. oe Blood collected. Flushed with 10 mL NS. 06/28 01:19 Provided Education on: post er care. rg5 01:19 IV discontinued. rg5 Administered Medications: 06/27 23:37 Drug: NS 0.9% IV 1000 ml IV at 1 bolus Per protocol; to be given as a bolus over 60 rg5 minutes Route: IV; Rate: 1 bolus; Site: right antecubital; 06/28 01:00 Follow up: IV Status: Completed infusion; IV Intake: 1000ml rg5 00:00 Drug: NS 0.9% IV 1000 ml IV at 1000 ml once; to be given as a bolus over 60 minutes rg5 Route: IV; Rate: 1000 ml; Site: right antecubital; 00:00 Follow up: IV Status: Completed infusion; IV Intake: 1000ml rg5 00:12 Drug: Insulin Regular Human IVP 10 units IVP once {Co-Signature: kj2 (Myesha Santana RN).} Route: IVP; Site: right antecubital; 00:31 Follow up: Response: No adverse reaction cg 00:37 Drug: Famotidine IVP 20 mg IVP once; dilute with 10 mL 0.9% NaCl; give over 2 minutes rg5 Route: IVP; Site: right antecubital; 01:21 Follow up: Response: No adverse reaction rg5 00:37 Drug: Dicyclomine PO 20 mg PO once Route: PO; rg5 01:21 Follow up: Response: No adverse reaction rg5 Medication: 06/27 22:00 VIS not applicable for this client. rg5 Point of Care Testing: Blood Glucose: 22:01 Blood Glucose: High (>450 mg/dL); cm10 Ranges: Intake: 06/28 00:00 IV: 1000ml; Total: 1000ml. rg5 01:00 IV: 1000ml; Total: 2000ml. rg5 Outcome: 00:43 Discharge ordered by . kb 01:19 Discharged to home ambulatory, rg5 01:19 Condition: stable rg5 01:19 Discharge instructions given to patient, 01:22 Patient left the ED. rg5 Signatures: Marianela Moyer, MALA-C ASSISTANT PROGRAM MANAGER-Carlene Guillen, RN RN Nilay Linares Clarissa, RN RN cm10 Kat Ortega 2 Juan Jose Hansen RN RN rg5 Myesha Santana RN kj2
--- NOTE | 2024-06-28 00:44 | EDPHYS ---
Physician Documentation [facility] Name: Jimenez Patrick Age: 28 yrs Sex: Male : 1995 Arrival Date: 06/27/2024 Time: 21:46 Bed 14 Private MD: Farzad Rahman ED Physician Ethan Harris HPI: 06/28 00:16 This 28 yrs old Male presents to ER via Ambulatory with complaints of High kb Blood Sugar, Patient is unable to obtain his insulin from any local pharmacy. he has been out 4 days, Abdominal Pain. 00:16 Pt is a 28 year old male who presents for high blood sugar. States he has been out of kb his insulin for 4 days and his meter was reading high. Reports upper abd pain which could be related to chronic pancreatitis. Denies nausea, vomiting, diarrhea. Historical: - Allergies: 06/27 22:01 NKA; cm10 - PMHx: 22:01 Chronic Pancreatitis; Diabetes - IDDM; Hypertensive disorder; cm10 - PSHx: 22:01 Cholecystectomy; I\T\D; stents x 2 in pancreas; cm10 - Immunization history:: Adult Immunizations up to date. - Infectious Disease History:: Denies. - Social history:: Smoking status: Reported history of juuling and/or vaping. ROS: 06/28 00:17 Constitutional: As per HPI kb Exam: 00:17 Constitutional: This is a well developed, well nourished patient who is awake, alert, kb and in no acute distress. Head/Face: Normocephalic, atraumatic. ENT: Moist Mucous membranes Cardiovascular: Regular rate Respiratory: Respirations even and unlabored. No increased work of breathing. Talking in full sentences Abdomen/GI: Soft, non-tender. No distention Skin: Warm, dry with normal turgor. Normal color. MS/ Extremity: Pulses equal, no cyanosis. Neurovascular intact. Full, normal range of motion. Neuro: Awake and alert, GCS 15, oriented to person, place, time, and situation. Vital Signs: 06/27 21:59 BP 133 / 98; Pulse 105; Resp 19; Temp 98.6(O); Pulse Ox 100% ; Weight 90.72 kg; Height cm10 5 ft. 9 in. ; Pain 6/10; 22:00 BP 123 / 75; Pulse 68; Resp 17; Temp 98; Pulse Ox 95% on R/A; Pain 6/10; rg5 21:59 Body Mass Index 29.53 (90.72 kg, 175.26 cm) cm10 21:59 Pain Scale: Adult cm10 22:00 Pain Scale: Adult rg5 [place] Coma Score: 22:00 Eye Response: spontaneous(4). Motor Response: obeys commands(6). Verbal Response: rg5 oriented(5). Total: 15. MDM: 21:56 Medical Screening Exam initiated kb 06/28 00:18 Differential diagnosis: DKA, hyperglycemia. Data reviewed: vital signs, nurses notes. kb 00:43 Counseling: I had a detailed discussion with the patient and/or guardian regarding the kb historical points, exam findings, and any diagnostic results supporting the discharge/admit diagnosis, lab results, the need for outpatient follow up, a family practitioner, to return to the emergency department if symptoms worsen or persist or if there are any questions or concerns that arise at home. 06/27 22:10 Order name: Glucose, Ancillary Testing; Complete Time: 22:11 EDMS 06/27 22:12 Order name: CBC with Diff; Complete Time: 23:49 kb 06/27 22:12 Order name: CMP; Complete Time: 23:59 kb 06/27 22:12 Order name: Lipase; Complete Time: 23:59 kb 06/27 22:12 Order name: Urinalysis w/ reflexes; Complete Time: 00:00 kb 06/28 00:38 Order name: Glucose, Ancillary Testing; Complete Time: 00:42 EDMS 06/27 22:12 Order name: IV Saline Lock; Complete Time: 23:38 kb 06/27 22:12 Order name: Labs collected and sent; Complete Time: 23:38 kb Administered Medications: 06/27 23:37 Drug: NS 0.9% IV 1000 ml IV at 1 bolus Per protocol; to be given as a bolus over 60 rg5 minutes Route: IV; Rate: 1 bolus; Site: right antecubital; 06/28 01:00 Follow up: IV Status: Completed infusion; IV Intake: 1000ml rg5 00:00 Drug: NS 0.9% IV 1000 ml IV at 1000 ml once; to be given as a bolus over 60 minutes rg5 Route: IV; Rate: 1000 ml; Site: right antecubital; 00:00 Follow up: IV Status: Completed infusion; IV Intake: 1000ml rg5 00:12 Drug: Insulin Regular Human IVP 10 units IVP once {Co-Signature: kj2 (Max Myesha rg5 RN).} Route: IVP; Site: right antecubital; 00:31 Follow up: Response: No adverse reaction cg 00:37 Drug: Famotidine IVP 20 mg IVP once; dilute with 10 mL 0.9% NaCl; give over 2 minutes rg5 Route: IVP; Site: right antecubital; 01:21 Follow up: Response: No adverse reaction rg5 00:37 Drug: Dicyclomine PO 20 mg PO once Route: PO; rg5 01:21 Follow up: Response: No adverse reaction rg5 Point of Care Testing: Blood Glucose: 06/27 22:01 Blood Glucose: High (>450 mg/dL); cm10 Ranges: Critical Glucose Levels:Adult <50 mg/dl or >400 mg/dl <40 mg/dl or >180 mg/dl Disposition: 06/28 01:10 Co-signature as Attending Physician, Ethan Harris MD I agree with the assessment sp4 and plan of care. I reviewed the patient's care provided by Advanced Practice Provider \T\ agree w/ the diagnosis \T\ care plan. I personally saw the pt \T\ performed a substantive portion of the visit, incldng all aspects of the (History/Exam/Medical Decision Making). Disposition Summary: 06/28/24 00:43 Discharge Ordered Notes: Location: Home Condition: Stable kb Diagnosis - Hyperglycemia, unspecified kb Followup: kb - With: Emergency Department - When: As needed - Reason: Worsening of condition Followup: kb - With: Private Physician - When: 2 - 3 days - Reason: Recheck today's complaints, Continuance of care, Re-evaluation by your physician Discharge Instructions: - Discharge Summary Sheet kb - Hyperglycemia, [id number] kb Forms: - Medication Reconciliation Form kb - Antibiotic Education kb - Prescription Opioid Use kb - Patient Portal Instructions kb - Leadership Thank You Letter kb - Work release form mr Signatures: Dispatcher [employer] Marianela Bullock, SULY MEDEIROS-Ethan Kemp MD MD sp4 Rachel Woodward RN RN cm10 Juan Jose Hansen RN RN rg5 Carlene Jordan RN cg Myesha Santana RN kj2 Corrections: (The following items were deleted from the chart) 06/27 22:12 22:12 CBC+H.LAB.BRZ ordered. EDMS EDMS 22:12 22:12 COMPREHENSIVE METABOLIC PANEL+C.LAB.BRZ ordered. EDMS EDMS 22:12 22:12 LIPASE+C.LAB.BRZ ordered. EDMS EDMS 22:12 22:12 Urinalysis+U.LAB.BRZ ordered. EDMS EDMS
[2024-06-28 12:21] VITALS: BP 123/75; TEMP 98; O2SAT 95
== END 2024-06-28 01:22 | disposition home or self-care (01) ==
LOC: ER 21:46
DX: E11.65 Type 2 diabetes mellitus with hyperglycemia (principal); R10.10 Upper abdominal pain, unspecified
CPT/HCPCS: 96361; 85025; 81001; 36415; 82947 ×3; 83690; 80053; 96375; 96374; 99284; J0500; J7030

== ENCOUNTER 2024-10-26 07:44 | Emergency (ER) | payer OTHER ==
--- OUTSIDE RECORDS SUMMARY | 2024-10-26 07:49 | XMS REPORT | Continuity of Care Document ---
Author Name Unknown Address [address] [facility]. [address] [place] [address] [facility] thconnect Address [address] [facility] [address] [place] [address] Care Team Providers Care Box Sealing Machine Catcher Name Role Phone Pcp, Patient Does Not Have A Primary Care Physic adry MICHAEL BRAVO Attending Clinician Unavailable BROOKLYNN AGUILAR Attending Clinician Unavailable NANCY WEST Attending Clinician Unavailabl e Campaigns, Generic Provider Attending Clinician Unavailable ELDA THOMPSON Attending Clinician Unavailab Pablo Burch MD Attending Clinician [phone] Elda Thompson DO Attending Clinician [phone] GENESIS MONTGOMERY Attending Clinician Unavailab barbara JUARES Attending Clinician Unavailable Nabil Almanzar RN Attending Clinician Unavail able LAZARO HUNTER Attending Clinician Unavailable Augustin Kincaid Attending Clinician [phone] Esa Ko DO Attending Clinician [phone] Lazaro Hunter MD Attending Clinician [phone] Syeda Alberts Attending Clinician [phone] SYEDA PERSAUD Attending Clinician Unavailable Doctor Unassigned, Gahanna Attending Clinician U navailable LAAZRO HUNTER Admitting Clinician Unavailable Lazaro Hunter MD Admitting Clinician [phone] Payers Payer Name Policy Type Policy Number Effective Date Expirati on Date Source MICHELET MP [employer] 94 ON 9 [id number] 2023 00:00:00 Problems Condition Name Condition Details Condition Category Status Onset Date Resolution Date Last Treatment Date Treating Clinician Comments Source 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 Disease Active - 00:00: 00 [facility] Gastropare sis Gastropare sis Disease Active 01-06 00:00: 00 [facility] Current moderate episode of major depressive disorder Current moderate episode of major depressive disorder Disease Active 3- 00:00: 00 Parvin Semichaelold - Externa l Elevated liver function tests [...] is Disease Active -08 00:00: 00 [facility] Epigastric pain Epigastric pain Disease Active - 00:00: 00 [facility] Obesity (BMI 30-39.9) Obesity (BMI 30-39.9) Disease Active 04-16 00:00: 00 [facility] Mesenteric adenitis Mesenteric adenitis Disease Active 2009-09 2- 00:00: 00 [facility] Pancreatit is Pancreatit is Disease Active 2009-09 00:00: 00 [facility] Abdominal pain Abdominal pain Disease Active 2009-09 00:00: 00 [facility] Other acne Other acne Disease Active 04-13 00:00: 00 [facility] Viral warts Viral warts Disease Active 04-13 00:00: 00 Overview: Formattin g of this note might be different from the original. 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 Allergies, Adverse Reactions, Alerts Allergy Name Allergy Type Status Severity Reaction(s) Onset Date Inactive Date Treating Clinician Comments Source NO KNOWN ALLERGIE S Drug Class Active [facility] Social History Social Habit Start Date Stop Date Quantity Comments Source History of tobacco use Cigarette Smoker Parvin Lee External Sexual orientation [facility] History SDOH Social Connections Get Together [facility] History SDOH Social Connections Faith [facility] History SDOH Social Connections [...] [facility] Unknown if ever smoked [facility] Medications Ordered Medication Name Filled Medication Name Start Date Stop Date Current Medication? Ordering Clinician Indication Dosage Frequency Signature (SIG) Comments Components Source Insulin Glargine (Basaglar KwikPen) 100 UNIT/ML subcutaneou s Solution Pen-injecto r 01-19 00:00: 00 Yes [id number] 42U Inject 42 units into the skin daily (with breakfast) . Parvin Llanosa l NaCl 0.9% (NS) bolus infusion 500 mL 01-06 19:00: 00 01-06 19:58 :00 No 500mL at 999 mL/hr, 500 mL, IV Infusion, ONCE, 1 dose, On 01/07/24 at 1400, STAT [facility] haloperidol lactate (HALDOL) injection 2.5 mg 01-06 18:00: 00 01-06 18:14 :00 No 2.5mg 2.5 mg, Intravenou s, ONCE, 1 dose, On 01/07/24 at 1300, [facility] insulin regular human (HUMULIN R) injection 8 Units 01-06 17:45: 00 01-06 17:04 :00 No 8U 8 Units, IV Push, ONCE, 1 dose, On 01/07/24 at 1245, MARITA
In dication for insulin: Hyperglyce tess [facility] ketorolac (TORADOL) injection 15 mg 01-06 16:30: 00 01-06 16:01 :00 No 15mg 15 mg, Slow IV Push, ONCE, 1 dose, On 01/07/24 at 1130, MARITA [facility] maalox:diph enhydrAMINE :lidocaine 2 % viscous 1:1:1 ([facility]) oral suspension 15 mL 01-06 15:30: 00 01-06 16:01 :00 No 15mL 15 mL, Oral, ONCE, 1 dose, On 01/07/24 at 1030, Routine [facility] NaCl 0.9% (NS) bolus infusion 1,000 mL 01-06 14:15: 00 01-06 16:02 :00 No 1000mL at 999 mL/hr, 1,000 mL, IV Piggyback, ONCE, 1 dose, On 01/07/24 at 0915, STAT [facility] Sertraline HCl 25 MG oral Tablet 12-20 00:00: 00 Yes [id number] 25mg Take 1 tablet (25 mg total) by mouth daily. Parvin siegel Sertraline HCl 25 MG oral Tablet 11-28 00:00: 00 Yes [id number] 25mg Take 1 tablet (25 mg total) by mouth daily. Parvin siegel Insulin Glargine (Basaglar KwikPen) 100 UNIT/ML subcutaneou s Solution Pen-injecto r 11-28 00:00: 00 Yes [id number] 9101 42U Inject 42 units into the skin daily (with breakfast) 40 units sc daily. Parvin siegel Continuous Blood Gluc Sensor (Dexcom G6 Sensor) does not apply Misc 11-28 00:00: 00 Yes [id number] Check BS continuous ly. Parvin siegel Continuous Blood Gluc Transmit (Dexcom G6 Transmitter ) does not apply Misc 11-28 00:00: 00 Yes [id number] Check BS continousl y. Parvin siegel Continuous Blood Gluc Senior Speech Pathologist (Dexcom G6 Senior Speech Pathologist) does not apply Device 11-28 00:00: 00 Yes [id number] Check BS continuous ly. Parvin siegel Mirtazapine 15 MG oral Tablet 11-17 00:00: 00 11-28 00:00 :00 No 15mg Take 1 tablet (15 mg total) by mouth nightly. Parvin siegel Insulin Pen Needle (BD Pen Needle Connie 2nd Gen) 32G X 4 MM does not apply Misc 10-28 00:00: 00 Yes [id number] 9101 Use as directed. Parvin siegel Metoprolol Tartrate (LOPRESSOR) 25 MG oral Tablet 10-27 00:00: 00 Yes [id number] 25mg Take 1 tablet (25 mg total) by mouth daily. Parvin siegel Insulin Glargine (Basaglar KwikPen) 100 UNIT/ML subcutaneou s Solution Pen-injecto r 10-27 00:00: 00 Yes [id number] 9101 40 units sc daily. Parvin siegel Insulin NPH Isophane & Regular (NOVOLIN 70/30 SC) 10-06 10:25: 45 10-06 00:00 :00 No 60U Inject 60 units into the skin daily. Parvin siegel Metoprolol Tartrate (LOPRESSOR) 25 MG oral Tablet 10-06 00:00: 00 Yes [id number] 25mg Take 1 tablet (25 mg total) by mouth daily. Parvin siegel Insulin Glargine (Basaglar KwikPen) 100 UNIT/ML subcutaneou s Solution Pen-injecto r 10-06 00:00: 00 Yes [id number] 9101 40 units sc daily. Parvin siegel Continuous Blood Gluc Senior Speech Pathologist (Dexcom G6 Senior Speech Pathologist) does not apply Device 10-06 00:00: 00 Yes [id number] Check BS continuous ly. Parvin siegel Continuous Blood Gluc Sensor (Dexcom G6 Sensor) does not apply Misc 10-06 00:00: 00 Yes [id number] Check BS continuous ly. Parvin siegel Continuous Blood Gluc Transmit (Dexcom G6 Transmitter ) does not apply Misc 10-06 00:00: 00 Yes [id number] Check BS continousl y. Parvin Llanosa l Continuous Blood Gluc Senior Speech Pathologist (Dexcom G6 Senior Speech Pathologist) does not apply Device 10-06 00:00: 00 Yes [id number] Check BS continuous ly. Parvin Greenmichaelrenita siegel Continuous Blood Gluc Sensor (Dexcom G6 Sensor) does not apply Misc 10-06 00:00: 00 Yes [id number] Check BS continuous ly. Parvin Greenmichaelrenita Llanosa christal Continuous Blood Gluc Transmit (Dexcom G6 Transmitter ) does not apply Misc 10-06 00:00: 00 Yes [id number] Check BS continousl y. Parvin Greentheodore Gonsales christal Gabapentin 100 MG oral Capsule 10-06 00:00: 00 11-28 00:00 :00 No [id number] 100mg [id number] 3D Take 1 capsule (100 mg total) [...] times daily before breakfast and dinner. [facility] insulin NPH and regular human 70-30 (NOVOLIN 70/30 U-100 INSULIN) 100 unit/mL (70-30) injection 09-14 00:00: 00 Yes [id number] 60U inject 60 Units under the skin 2 (two) times daily before breakfast and dinner. [facility] atorvastati n 40 mg tablet 09-14 00:00: 00 10-15 05:59 :00 No [id number] 40mg Take 1 tablet by mouth at bedtime for [address] [facility] lisinopriL 10 mg tablet 09-14 00:00: 00 10-15 05:59 :00 No [id number] 10mg Take 1 tablet by mouth in the morning and 1 tablet in the evening. Do all this for 30 days. Univers ity [facility] morpHINE (4 mg/mL) injection 4 mg 09-13 09:53: 10 Yes 4mg 4 mg, Slow IV Push, Q4HPRN, Starting on 09/13/22 at 0353, Until Discontinu ed, Routine, Pain (scale 7-10) [facility] atorvastati n (LIPITOR) tablet 40 mg 09-13 03:00: 00 Yes 40mg 40 mg, Oral, QHS, First dose on 09/12/22 at 2100, Until Discontinu ed, Routine [facility] lisinopriL (PRINIVIL,Z ESTRIL) tablet 10 mg 09-12 14:45: 00 Yes 10mg 10 mg, Oral, BID, First dose (after last modificati on) on Tue09/12/22 at 0845, Until Discontinu ed, Routine [facility] KCL (KLOR-CON M20) tablet 40 mEq 09-12 13:45: 00 09-12 14:15 :00 No 40meq 40 mEq, Oral, ONCE, 1 dose, On Tue09/12/22 at 0745, Routine [facility] potassium chloride in water 10 mEq/100 mL RTU 10 mEq 09-12 13:00: 00 09-12 16:20 :00 No 10meq 10 mEq, IV Piggyback, Q1H, 2 doses, First dose on 09/12/22 at 0700, Last dose on Tue09/12/22 at 0800, Administer over 60 Minutes, [address] [facility] lisinopriL (PRINIVIL,Z ESTRIL) tablet 5 mg 09-12 05:00: 00 09-12 14:35 :46 No 5mg 5 mg, Oral, BID, First dose on Tue09/11/22 at 2300, Until Discontinu ed, Routine [facility] lactated ringers IV infusion 1,000 mL 09-12 03:15: 00 Yes 1000mL at 150 mL/hr, 1,000 mL, IV Infusion, CONTINUOUS , Starting on 09/11/22 at 2115, Until Discontinu ed, Routine [facility] Sliding Scale Insulin - Lispro (HumaLOG) + Fsbg Testing 09-11 23:00: 00 Yes Subcutaneo us, TID MEALS+HS, First dose on 09/11/22 at 1700, Until Discontinu ed, Routine [facility] enoxaparin (LOVENOX) injection 40 mg 09-11 23:00: 00 Yes 40mg 40 mg, Subcutaneo us, DAILY, First dose on 09/11/22 at 1700, Until Discontinu ed, Routine [facility] lactated ringers IV infusion 1,000 mL 09-11 19:15: 00 09-12 03:05 :27 No 1000mL at 125 mL/hr, 1,000 mL, IV Infusion, CONTINUOUS , Starting on 09/11/22 at 1315, Until 09/11/22 at 2105, Routine [facility] lactated ringers IV infusion 1,000 mL 09-11 19:00: 00 09-11 19:56 :58 No 1000mL at 999 mL/hr, 1,000 mL, Intravenou s, ONCE, 1 dose, On 09/11/22 at 1300, Routine [facility] NaCl 0.9% (NS) IV infusion 1,000 mL 09-11 18:15: 00 09-11 19:00 :00 No 1000mL at 999 mL/hr, Intravenou s, ONCE, 1 dose, [facility]22 [facility] 1215[facility] F[facility] (SUBLIMAZE (PF)) injection 50 mcg 09-11 18:05: 00 09-11 18:10 :00 No 50ug 50 mcg, Slow IV Push, ONCE, 1 dose, On 09/11/22 at 1215, [facility] ondansetron (ZOFRAN (PF)) injection 4 mg 09-11 18:05: 00 09-11 18:09 :00 No 4mg 4 mg, Slow IV Push, ONCE, 1 dose, On 09/11/22 at 1215, MARITA [facility] glucagon (GLUCAGEN DIAGNOSTIC KIT) injection 1 mg 09-11 18:04: 12 Yes 1mg 1 mg, Intramuscu lar, PRN, Starting on 09/11/22 at 1204, Until Discontinu ed, MARITA, Blood Glucose < or = 70 mg/dL and patient is unable to swallow or has mental changes. [facility] dextrose 50 % in water (D50W) injection 25 mL 09-11 18:04: 12 Yes 25mL 25 mL, Slow IV Push, PRN, Starting on 09/11/22 at 1204, Until Discontinu ed, MARITA, Blood Glucose < or = 70 mg/dL and patient is unable to swallow or has mental status changes. [facility] ondansetron (ZOFRAN (PF)) injection 4 mg 09-11 18:04: 03 Yes 4mg 4 mg, Slow IV Push, Q6HPRN, Starting on 09/11/22 at 1204, Until Discontinu ed, Routine, Nausea and Vomiting (N/V) [facility] morpHINE (2 mg/mL) injection 2 mg 09-11 18:03: 52 09-12 18:02 :52 No 2mg 2 mg, Slow IV Push, Q4HPRN, Starting on 09/11/22 at 1203, Until 09/12/22 at 1202, Routine, Pain (scale 7-10) [facility] HYDROcodone -acetaminop hen (NORCO 5) 5-325 mg tablet 1 tablet 09-11 18:03: 48 09-13 18:02 :48 No 1{tbl} 1 tablet, Oral, Q6HPRN, Starting on 09/11/22 at 1203, Until 09/13/22 at 1202, Routine, Pain (scale 4-6) [facility] acetaminoph en (TYLENOL) tablet 650 mg 09-11 18:03: 39 Yes 650mg 650 mg, Oral, Q6HPRN, Starting on 09/11/22 at 1203, Until Discontinu ed, Routine, Pain (scale 1-3) [facility] insulin NPH and regular human 70-30 (70-30 U-100 INSULIN) 100 unit/mL (70-30) injection 60 Units 09-11 18:03: 00 09-11 18:54 :00 No 60U 60 Units, Subcutaneo us, ONCE, 1 dose, [facility] 09/11/22 [facility] 1215[facility] FENTanyl PF (SUBLIMAZE (PF)) injection 50 mcg 09-11 16:38: 00 09-11 16:41 :00 No 50ug 50 mcg, Slow IV Push, ONCE, 1 dose, On 09/11/22 at 1045, [facility] iopamidol (ISOVUE 370-500 mL) injection 78 mL 09-11 16:35: 00 09-11 16:45 :00 No [id number] 78mL 78 mL, Intravenou s, ONCE, 1 dose, On 09/11/22 at 1045, Routine [facility] ondansetron (ZOFRAN (PF)) injection 4 mg 09-11 15:45: 00 09-11 15:50 :00 No [id number] 4mg 4 mg, Slow IV Push, ONCE, 1 dose, On 09/11/22 at 0945, [facility] famotidine (PEPCID (PF)) injection 20 mg 09-11 15:45: 00 09-11 15:50 :00 No [id number] 20mg 20 mg, Slow IV Push, ONCE, 1 dose, On 09/11/22 at 0945, [facility] NaCl 0.9% (NS) IV infusion 1,000 mL 09-11 15:33: 00 09-11 17:00 :00 No [id number] 1000mL at 999 mL/hr, Intravenou s, ONCE, 1 dose, On 09/11/22 at 0945, [facility] sodium chloride (NS) injection 5 mL 09-11 15:32: 59 Yes [id number] 5mL 5 mL, Intravenou s, PRN, Starting on 09/11/22 at 0932, Until Discontinu ed, Routine, IV line flushing [facility] maalox:diph enhydrAMINE :lidocaine 2 % viscous 1:1:1 ([facility]) oral suspension 15 mL 11-08 20:45: 00 11-08 20:39 :00 No 15mL 15 mL, Oral, ONCE, 1 dose, 11/08/20 at 1445, [facility] insulin regular human (HUMULIN R) injection 9 Units 11-08 20:30: 00 11-08 19:39 :00 No 9U 9 Units, Slow IV Push, ONCE, 1 dose, 11/08/20 at 1430, STAT [facility] ondansetron (ZOFRAN (PF)) injection 4 mg 11-08 19:45: 00 11-08 18:49 :00 No 4mg 4 mg, Slow IV Push, ONCE, 1 dose, 11/08/20 at 1345, [facility] morpHINE injection 4 mg 11-08 19:45: 00 11-08 18:49 :00 No 4mg 4 mg, Slow IV Push, ONCE, 1 dose, 11/08/20 at 1345, STAT [facility] NaCl 0.9% (NS) bolus infusion 1,000 mL 11-08 19:30: 00 11-08 20:37 :00 No 1000mL at 999 mL/hr, 1,000 mL, IV Infusion, ONCE, 1 dose, 11/08/20 at 1330, [facility] NaCl 0.9% (NS) bolus infusion 1,000 mL 11-08 18:30: 00 11-08 19:39 :00 No 1000mL at 999 mL/hr, 1,000 mL, IV Infusion, ONCE, 1 dose, 11/08/20 at 1230, MARITA [facility] ondansetron (ZOFRAN ODT) 4 mg disintegrat ing tablet 11-08 00:00: 00 09-11 00:00 :00 No [id number] 4mg Take 1 tablet by mouth every 8 (eight) hours as needed for Nausea and Vomiting (N/V). [facility] dicyclomine 20 mg tablet 11-08 00:00: 00 09-11 00:00 :00 No [id number] 20mg Take 1 tablet by mouth 4 (four) times daily as needed for Abdominal pain. [facility] No known medications No [facility] Vital Signs Vital Name Observation Time Observation Value Comments S ource Systolic blood pressure 2024-01-07 20:00:00 118 mm[Hg] [facility] Diastolic blood pressure 2024-01-07 20:00:00 91 mm[Hg] [facility] Heart rate 2024-01-07 20:00:00 82 /min [facility] Respiratory rate 2024-01-07 20:00:00 16 /min [facility] Oxygen saturation in Arterial blood by Pulse oximetry 2024-01-07 20:00:00 97 /min [facility] Body temperature 2024-01-07 13:13:00 36.94 Zenaida [facility] Body weight 2024-01-07 13:13:00 95.255 kg [facility] BMI 2024-01-07 13:13:00 31.01 kg/m2 [facility] Body height 2024-01-07 13:11:00 175.3 cm [facility] Systolic blood pressure 2023-11-29 15:36:00 115 mm[Hg] [...] Systolic blood pressure 2022-09-14 17:21:00 130 mm[Hg] [facility] Diastolic blood pressure 2022-09-14 17:21:00 93 mm[Hg] [facility] Heart rate 2022-09-14 17:21:00 87 /min [facility] Body temperature 2022-09-14 17:21:00 35.56 Zenaida [facility] Respiratory rate 2022-09-14 17:21:00 18 /min [facility] Oxygen saturation in Arterial blood by Pulse oximetry 2022-09-14 17:21:00 98 /min [facility] Body weight 2022-09-14 09:02:00 98.476 kg [facility] BMI 2022-09-14 09:02:00 32.06 kg/m2 [facility] Body height 2022-09-11 19:14:00 175.3 cm [facility] Systolic blood pressure 2020-11-08 21:00:00 136 mm[Hg] [facility] Diastolic blood pressure 2020-11-08 21:00:00 95 mm[Hg] [facility] Heart rate 2020-11-08 21:00:00 93 /min [facility] Respiratory rate 2020-11-08 21:00:00 16 /min [facility] Oxygen saturation in Arterial blood by Pulse oximetry 2020-11-08 21:00:00 98 /min [facility] Body temperature 2020-11-08 18:12:00 36.44 Zenaida [facility] Body height 2020-11-08 18:12:00 175.3 cm [facility] Body weight 2020-11-08 18:12:00 92.987 kg [facility] BMI 2020-11-08 18:12:00 30.27 kg/m2 [facility] Procedures Procedure Date / Time Performed Performing Clinician Source POCT GLUCOSE (AUTOMATED) 2024-01-07 19:35:00 Donna [facility] URINE DRUG (IMMUNOASSAY) - COMPREHENSIVE DRUG SCREEN 2024-01-07 18:28:00 Donna [facility] URINALYSIS 2024-01-07 18:28:00 Fercho Baugh [facility] POCT GLUCOSE (AUTOMATED) 2024-01-07 17:37:00 Donna [facility] LIPASE 2024-01-07 13:41:00 Fercho Baugh [facility] COMP. METABOLIC PANEL ([id number]) 2024-01-07 13:41:00 Lupis [facility] CBC WITH DIFF 2024-01-07 13:41:[address] [facility] POCT GLUCOSE (AUTOMATED) 2022-09-14 17:22:00 Jadiel Hunter [facility] LIPASE 2022-09-14 11:57:00 Michael Jung [facility] BASIC METABOLIC PANEL (NA, K, CL, CO2, GLUCOSE, BUN, CREATININE, CA) 2022-09-14 11:57:00 Michael Jung [facility] LIPID PANEL ([id number])(TOTAL CHOLESTEROL, TRIGLYCERIDES, HDL) 2022-09-14 11:57:00 Michael Jung [facility] CBC WITH DIFF 2022-09-14 11:57:00 Michael Jung [facility] POCT GLUCOSE (AUTOMATED) 2022-09-14 02:35:00 Jadiel Hunter [facility] POCT GLUCOSE (AUTOMATED) 2022-09-13 22:59:00 Jadiel Hunter [facility] POCT GLUCOSE (AUTOMATED) 2022-09-13 17:43:00 Jadiel Hunter [facility] POCT GLUCOSE (AUTOMATED) 2022-09-13 13:30:00 Jadiel Hunter [facility] 2022-09-12 09:07:00 Lazaro Hunter [facility] HEPATIC FUNCTION PANEL ([id number]) (ALB,T.PRO,BILI T,BU/BC,ALT,AST,ALK PHOS) 2022-09-12 09:07:00 [place] (NA, K, CL, CO2, GLUCOSE, BUN, CREATININE, CA) 2022-09-12 09:07:00 Emy Hyde [facility] LIPID PANEL ([id number])(TOTAL CHOLESTEROL, TRIGLYCERIDES, HDL) 2022-09-12 09:07:00 Lazaro Hunter [facility] CBC WITH DIFF 2022-09-12 09:07:00 Emy Hyde [facility] POCT GLUCOSE (AUTOMATED) 2022-09-12 09:01:00 Salma Ko [facility] POCT GLUCOSE (AUTOMATED) 2022-09-12 02:38:00 Salma Ko [facility] POCT GLUCOSE (AUTOMATED) 2022-09-11 22:42:00 Salma Ko [facility] POCT GLUCOSE (AUTOMATED) 2022-09-11 18:57:00 [facility] POCT GLUCOSE(AGE >30DAYS) 2022-09-11 17:22:00 [facility] POCT GLUCOSE (AUTOMATED) 2022-09-11 17:21:[address] [facility] [address] ABDOMEN PELVIS W CONTRAST 2022-09-11 16:38:00 Mate[facility] POCT GLUCOSE (AUTOMATED) 2022-09-11 15:59:00 [facility] LIPASE 2022-09-11 15:48:00 [facility] COMP. METABOLIC PANEL ([id number]) 2022-09-11 15:48:00 [facility] 2022-09-11 15:48:00 Augustin Ignacio [facility] GLYCOSYLATED HEMOGLOBIN (A1C) 2022-09-11 15:48:00 Esa Ko [facility] URINALYSIS 2022-09-11 15:46:00 Augustin Ignacio [facility] CONSENT/REFUSAL FOR DIAGNOSIS AND TREATMENT 2022-09-11 15:16:37 Doctor Unassigned, Gahanna [facility] POCT GLUCOSE (AUTOMATED) 2020-11-08 20:26:00 Syeda Persaud [facility] LIPASE 2020-11-08 18:29:00 [facility] ([id number]) (ALB,T.PRO,BILI T,BU/BC,ALT,AST,ALK PHOS) 2020-11-08 18:29:00 [facility] (NA, K, CL, CO2, GLUCOSE, BUN, CREATININE, CA) 2020-11-08 18:29:00 [facility]FF 2020-11-08 18:29:00 PersaudSyeda parsons [facility] URINALYSIS 2020-11-08 18:29:00 [facility] NOTICE OF PRIVACY PRACTICES 2020-11-08 18:06:16 Doctor Unassigned, Gahanna [facility] CONSENT/REFUSAL FOR DIAGNOSIS AND TREATMENT 2020-11-08 18:06:04 Doctor Unassigned, Gahanna [facility] Encounters Start Date/Time End Date/Time Encounter Type Admission Type Attending [facility] Care Facility Care Department Encounter ID Source 2021-09-30 12:34:38 Outpatient [facility] [id number] [facility] 2024-08-08 00:00:00 2024-08-08 00:00:00 Outpatient MICHAEL BRAVO [id number] [facility] 2024-05-10 00:00:00 2024-05-10 00:00:00 Outpatient MICHAEL BRAVO [id number] [facility] 2024-04-01 00:00:00 2024-04-01 00:00:00 Outpatient MICHAEL BRAVO [id number] [facility] 2024-03-30 00:00:00 2024-03-30 00:00:00 Outpatient MICHAEL BRAVO [id number] [facility] 2024-03-29 00:00:00 2024-03-29 00:00:00 Outpatient MICHAEL BRAVO [id number] [facility] 2024-03-27 00:00:00 2024-03-27 00:00:00 Outpatient PREZAMICHAEL Saini [id number] [facility] 2024-03-16 00:00:00 2024-03-16 00:00:00 Outpatient PREZAMICHAEL Saini [id number] [facility] 2024-02-28 16:15:00 2024-02-28 16:15:00 Outpatient PARVIN HERNÁNDEZ [id number] [facility] 2024-02-28 00:00:00 2024-02-28 00:00:00 Outpatient PREZAMICHAEL Saini [id number] [facility] 2024-02-27 00:00:00 2024-02-27 00:00:00 Outpatient PREZASMICHAEL [id number] [facility] 2024-02-27 00:00:00 2024-02-27 00:00:00 Outpatient PREZAMICHAEL Saini [id number] [facility] 2024-02-21 15:30:00 2024-02-21 15:30:00 Outpatient BROOKLYNN AGUILAR PARVIN [id number] [facility] 2024-02-21 00:00:00 2024-02-21 00:00:00 Outpatient RODRIGORICHARDBROOKLYNN Basurto PARVIN [id number] [facility] 2024-01-23 14:15:00 2024-01-23 14:15:00 Outpatient NANCY WEST PARVIN PARVIN [id number] [facility] 2024-01-20 00:00:00 2024-01-20 00:00:00 Outpatient MICHAEL BRAVO PARVIN [id number] [facility] 2024-01-18 00:00:00 2024-01-18 11:18:00 Letter (Out) Campaigns, Generic Provider [facility] [id number] 350.1.13.10 4.2.7.2.[id number] [facility] 2024-01-10 00:00:00 2024-01-10 00:00:00 Outpatient PREZAMICHAEL Saini PARVIN HERNÁNDEZ [id number] [facility] 2024-01-09 10:30:00 2024-01-09 10:30:00 Outpatient PREZAMICHAEL Saini PARVIN HERNÁNDEZ [id number] [facility] 2024-01-07 08:13:00 2024-01-07 15:06:00 Emergency X ELDA [facility]ON [facility] [id number] [facility] 2024-01-07 08:13:00 2024-01-07 15:06:00 Emergency Pablo [facility] [id number] 350.1.13.10 4.2.7.2.[id number] [facility] 2023-12-30 15:30:00 2023-12-30 15:30:00 Outpatient PREZARIGOBERTO SainiFABIOLA HERNÁNDEZ [id number] [facility] 2023-12-27 16:30:00 2023-12-27 16:30:00 Outpatient PARVIN HERNÁNDEZ [id number] [facility] 2023-12-21 00:00:00 2023-12-21 00:00:00 Outpatient PREZAParveen MICHAEL HERNÁNDEZ [id number] [facility] 2023-12-13 00:00:00 2023-12-13 00:00:00 Outpatient PREZAS MICHAEL HERNÁNDEZ [id number] [facility] 2023-12-05 00:00:00 2023-12-05 00:00:00 Outpatient PREZAParveen MICHAEL HERNÁNDEZ [id number] [facility] 2023-11-29 10:30:00 2023-11-29 10:30:00 Outpatient PREZAParveen MICHAEL HERNÁNDEZ [id number] [facility] 2023-11-28 14:00:00 2023-11-28 14:00:00 Outpatient GENESIS MONTGOMERY [id number] [facility] 2023-11-28 00:00:00 2023-11-28 00:00:00 Outpatient PREZAS, MICHAEL HERNÁNDEZ PARVIN [id number] [facility] 2023-11-07 00:00:00 2023-11-07 00:00:00 Outpatient PREZAS, MICHAEL HERNÁNDEZ [id number] [facility] 2023-10-27 00:00:00 2023-10-27 00:00:00 Outpatient PREZAS, MICHAEL HERNÁNDEZ PARVIN [id number] [facility]23-10-26 00:00:00 2023-10-26 00:00:00 Outpatient PREZAS, MICHAEL HERNÁNDEZ PARVIN [id number] [facility] 2023-10-26 00:00:00 2023-10-26 00:00:00 Outpatient PREZAS, MICHAEL HERNÁNDEZ PARVIN [id number] [facility] 2023-10-19 16:45:00 2023-10-19 16:45:00 Outpatient PREZAS, MICHAEL HERNÁNDEZ PARVIN [id number] [facility] 2023-10-18 14:30:00 2023-10-18 14:30:00 Outpatient PARVIN PARVIN [id number] [facility] 2023-10-10 00:00:00 2023-10-10 00:00:00 Outpatient PREZAS, MICHAEL HERNÁNDEZ PARVIN [id number] [facility] 2023-10-07 00:00:00 2023-10-07 00:00:00 Outpatient PREZAS, MICHAEL PARVIN PARVIN [id number] [facility] 2023-10-06 10:45:00 2023-10-06 10:45:00 Outpatient LABVeena PARVIN HERNÁNDEZ [id number] [facility] 2023-10-06 09:30:00 2023-10-06 09:30:00 Outpatient PREZAS, MICHAEL PARVIN HERNÁNDEZ [id number] [facility] 2023-08-24 10:15:00 2023-08-24 10:15:00 Outpatient PREZAS, MICHAEL PARVIN HERNÁNDEZ [id number] [facility] 2022-09-15 00:00:00 2022-09-15 00:00:00 Transition of Care Jenelle Nabil ROUSE 1.2840.114 350.1.13.10 4.2.7.2.[id number] [facility] 2022-09-11 09:26:00 2022-09-14 13:00:00 [facility] [id number] [facility] 2022-09-11 09:26:00 2022-09-14 13:00:00 Hospital Encounter LibiabrittanyAugustin, [facility] 1.2840.114 350.1.13.10 4.2.7.2.[id number] [facility] 2020-11-08 12:16:00 2020-11-08 15:38:00 Emergency Ramses [facility] 1.2840.114 350.1.13.10 4.2.7.2.[id number] [facility] 2020-11-08 12:06:00 2020-11-08 12:06:00 Emergency X SYEDA PERSAUD [facility] ERT [id number] [facility] 2020-11-08 00:00:00 2020-11-08 00:00:00 Orders Only Doctor Unassigned, Gahanna [facility] 1.2840.114 350.1.13.10 4.2.7.2.[id number] [facility] Results Test Description Test Time Test Comments Results Result Co mments Source [facility] GLUCOSE(AGE >30DAYS)2024-01-07 19:35:00* Test Item Value Reference Range Interpretation Comme nts POCT Glu (age>30days) (test code = 3342) 171 mg/dL 70-110 A Lab Interpretation (test cod e = 67674-1) Abnormal [facility] GLUCOSE (AUTOMATED)2024-01-07 17:39:20* Test Item Value Reference Range Interpretation Comme nts POCT GLU (test code = 1799376941) 155 mg/dL 70-110 H Lab Interpretation (test cod e = 39245-5) [facility] 14:35:51* Test Item Value Reference Range Interpretation Comme nts LIPASE (test code = 8378284746) 18 U/L 0-220 Lab Interpretation (test cod e = 32362-3) Normal [facility] (36654)2024-01-07 14:35:51* Test Item Value Reference Range Interpretation Comme nts NA (test code = 7632558757) 139 mmol/L 135-145 K (test code = 7150329800) 3.6 mmol/L 3.5-5.0 CL (test code = 7170884163) 100 mmol/L 98-108 CO2 TOTAL (test code = 2833588248) 24 mmol/L 23-31 AGAP (test code = 2556428711) 15 2-16 BUN (test code = 0442423673) 9 mg/dL 7-23 GLUCOSE (test code = 5332872273) 315 mg/dL 70-110 H CREATININE (test code = 2160-0) 0.68 mg/dL 0.60-1.25 TOTAL BILI (test code = 8333339257) 1.1 mg/dL 0.1-1.1 CALCIUM (test code = 8261082486) 9.2 mg/dL 8.6-10.6 T PROTEIN (test code = 2474348461) 7.5 g/dL 6.3-8.2 ALBUMIN (test code = 1340722612) 4.4 g/dL 3.5-5.0 ALK PHOS (test code = 6552610755) 156 U/L 34-122 H ALTv (test code = 1742-6) 62 U/L 5-50 H AST(SGOT) (test code = 1737796392) 52 U/L 13-40 H eGFR (test code = 06350-7) 129.0 mL/min/1.73m2 CKD-EPI eGFR (2020). Assuming creatinine has been stable day-to-day for at least three months, the eGFR indicates Category G1 (>= 90 mL/min/1.73 m2) Lab Interpretation (test code = 68747-9) Abnormal [facility] with [id number] 14:09:10* Test Item Value Reference Range Interpretation [...] g/dL 31.2-35.0 H RDW-SD (test code = 05615-9) 33.4 fL 38.5-51.6 L RDW-CV (test code = 788-0) 11.8 % 12.1-15.4 L PLT (test code = 777-3) 286 150-328 MPV (test code = 04416-4) 11.2 fL 9.8-13.0 NRBC/100 WBC (test code = 8314538253) 0.0 0.0-10.0 NRBC x10^3 (test code = 5712606787) See_Comment [Automated messa ge] The system which generated this result transmitted reference range: 10*3/?L. The reference range was not used to interpret this result as normal/abnormal. GRAN MAT (NEUT) % (test code = 770-8) 65.3 % IMM GRAN % (test code = 7092794676) 0.40 % LYMPH % (test code = 736-9) 21.8 % MONO % (test code = 5905-5) 11.1 % EOS % (test code = 713-8) 1.0 % BASO % (test code = 706-2) 0.4 % GRAN MAT x10^3(ANC) (test code = 2775352370) 5.79 10*3/uL 1.99-6.95 IMM GRAN x10^3 (test code = 0868004134) 0.04 10*3/uL 0.00-0.06 LYMPH x10^3 (test code = 731-0) 1.94 10*3/uL 1.09-3.23 MONO x10^3 (test code = 742-7) 0.99 10*3/uL 0.36-1.02 EOS x10^3 (test code = 711-2) 0.09 10*3/uL 0.06-0.53 BASO x10^3 (test code = 704-7) 0.04 10*3/uL 0.01-0.09 Lab Interpretation (test code = 10925-6) Abnormal [facility] GLUCOSE (AUTOMATED)2022-09-14 18:35:20* Test Item Value Reference Range Interpretation Comme nts POCT GLU (test code = 9845588497) 283 mg/dL 70-110 H Lab Interpretation (test cod e = 03676-8) Abnormal [facility] GLUCOSE (AUTOMATED)2022-09-14 02:40:24* Test Item Value Reference Range Interpretation Comme nts POCT GLU (test code = 2441818386) 191 mg/dL 70-110 H Lab Interpretation (test cod e = 96632-8) Abnormal [facility] GLUCOSE (AUTOMATED)2022-09-13 23:13:20* Test Item Value Reference Range Interpretation Comme nts POCT GLU (test code = 2700005667) 126 mg/dL 70-110 H Lab Interpretation (test cod e = 29088-3) Abnormal [facility] GLUCOSE (AUTOMATED)2022-09-13 17:51:10* Test Item Value Reference Range Interpretation Comme nts POCT GLU (test code = 7584585286) 270 mg/dL 70-110 H Lab Interpretation (test cod e = 51484-0) Abnormal [facility] GLUCOSE (AUTOMATED)2022-09-13 14:08:01* Test Item Value Reference Range Interpretation Comme nts POCT GLU (test code = 4949767470) 177 mg/dL 70-110 H Lab Interpretation (test cod e = 52380-3) Abnormal [facility] GLUCOSE (AUTOMATED)2022-09-12 22:53:55* Test Item Value Reference Range Interpretation Comme nts POCT GLU (test code = 6280633588) 207 mg/dL 70-110 H Lab Interpretation (test cod e = 05945-4) Abnormal [facility] GLUCOSE (AUTOMATED)2022-09-12 18:09:02* Test Item Value Reference Range Interpretation Comme nts POCT GLU (test code = 7644020097) 92 mg/dL 70-110 Lab Interpretation (test cod e = 19724-9) [facility]TOTAL CHOLESTEROL, TRIGLYCERIDES, HDL)2022-09-12 14:58:08* Test Item Value Reference Range Interpretation Comme nts CHOL (test code = 6557143254) 138 mg/dL 120-200 HDL (test code = 6762180649) 23 mg/dL See_Comment L [Automated messa ge] The system which generated this result transmitted reference range: >=40. The reference range was not used to interpret this result as normal/abnormal. HDLC RATIO (test code = 6846060733) See_Comment H [Automated messa ge] The system which generated this result transmitted reference range: <=5.0. The reference range was not used to interpret this result as normal/abnormal. TRIG (test code = 4824211103) 171 mg/dL 30-170 H LDL CHOL (test code = 03355-0) 81 mg/dL See_Comment [Automated messa ge] The system which generated this result transmitted reference range: <=160. The reference range was not used to interpret this result as normal/abnormal. VLDL (test code = 3889194142) 34 mg/dL 5-60 Lab Interpretation (test code = 64298-3) Abnormal [facility] GLUCOSE (AUTOMATED)2022-09-12 13:54:38* Test Item Value Reference Range Interpretation Comme nts POCT GLU (test code = 2182342664) 84 mg/dL 70-110 Lab Interpretation (test cod e = 10633-5) Normal [facility]98806[facility] (ALB,T.PRO,BILI T,BU/BC,ALT,AST,ALK PHOS)2022-09-12 13:03:03* Test Item Value Reference Range Interpretation Comme nts TOTAL BILI (test code = 5740993501) 1.0 mg/dL 0.1-1.1 BILI UNCON (test code = 9933753993) 0.8 mg/dL 0.1-1.1 BILI CONJ (test code = 3629872561) 0.0 mg/dL 0.0-0.3 T PROTEIN (test code = 5962540988) 6.7 g/dL 6.3-8.2 ALBUMIN (test code = 4605517071) 4.0 g/dL 3.5-5.0 ALK PHOS (test code = 0891211523) 106 U/L 34-122 ALTv (test code = 1742-6) 146 U/L 5-50 H AST(SGOT) (test code = 3640258846) 81 U/L 13-40 H Lab Interpretation (test cod e = 38149-5) [facility]normal [facility] 13:02:43* Test Item Value Reference Range Interpretation Comme nts MAGNESIUM (test code = 9272722444) 1.8 mg/dL 1.7-2.4 Lab Interpretation (test cod e = 24774-0) [facility] (NA, K, CL, CO2, GLUCOSE, BUN, CREATININE, CA)2022-09-12 12:10:26* Test Item Value Reference Range Interpretation Comme nts NA (test code = 2338313309) 142 mmol/L 135-145 K (test code = 0523543527) 3.1 mmol/L 3.5-5.0 L CL (test code = 5425043391) 106 mmol/L 98-108 CO2 TOTAL (test code = 3201248344) 24 mmol/L 23-31 AGAP (test code = 7853126635) 2-16 BUN (test code = 3960925643) 8 mg/dL 7-23 GLUCOSE (test code = 3807663185) 73 mg/dL 70-110 CREATININE (test code = 8529980610) 0.72 mg/dL 0.60-1.25 CALCIUM (test code = 2717654465) 8.1 mg/dL 8.6-10.6 L eGFR (test code = 2518622717) mL/min/1.73m2 RAFAEL (test code = RAFAEL) Association [...] imaging tests). Lab Interpretation (test code = 96534-1) Abnormal [facility] WITH VPEF4860-47-79 11:46:12* Test Item Value Reference Range Interpretation Comme nts WBC (test code = 6690-2) See_Comment [[employer]] The system which generated this result transmitted reference range: 4.20 - 10.70 10*3/?L. The reference range was not used to interpret this result as normal/abnormal. RBC (test code = 789-8) See_Comment [Automated [employer]] The system which generated this result transmitted [...] 35.0 g/dL 31.2-35.0 RDW-SD (test code = 26970-6) 36.0 fL 38.5-51.6 L RDW-CV (test code = 788-0) 11.9 % 12.1-15.4 L PLT (test code = 777-3) See_Comment [Automated messa ge] The system which generated this result transmitted reference range: 150 - 328 10*3/?L. The reference range was not used to interpret this result as normal/abnormal. MPV (test code = 40625-6) 10.7 fL 9.8-13.0 NRBC/100 WBC (test code = 0069664387) See_Comment [Automated [employer] ssage] The system which generated this result transmitted reference range: 0.0 - 10.0 /100 WBCs. The reference range was not used to interpret this result as normal/abnormal. NRBC x10^3 (test code = 7323520042) See_Comment [Automated messa ge] The system which generated this result transmitted reference range: 10*3/?L. The reference range was not used to interpret this result as normal/abnormal. GRAN MAT (NEUT) % (test code = 770-8) 50.2 % IMM GRAN % (test code = 9216914846) 0.40 % LYMPH % (test code = 736-9) 37.0 % MONO % (test code = 5905-5) 8.3 % EOS % (test code = 713-8) 3.6 % BASO % (test code = 706-2) 0.5 % GRAN MAT x10^3(ANC) (test code = 6769000182) 4.81 10*3/uL 1.99-6.95 IMM GRAN x10^3 (test code = 7464533975) 0.04 10*3/uL 0.00-0.06 LYMPH x10^3 (test code = 731-0) 3.56 10*3/uL 1.09-3.23 H MONO x10^3 (test code = 742-7) 0.80 10*3/uL 0.36-1.02 EOS x10^3 (test code = 711-2) 0.35 10*3/uL 0.06-0.53 BASO x10^3 (test code = 704-7) 0.05 10*3/uL 0.01-0.09 Lab Interpretation (test code = 67770-1) Abnormal [facility] GLUCOSE (AUTOMATED)2022-09-12 11:19:34* Test Item Value Reference Range Interpretation Comme nts POCT GLU (test code = 1499717116) 70 mg/dL 70-110 Lab Interpretation (test cod e = 72973-7) Normal [facility] GLUCOSE (AUTOMATED)2022-09-12 02:46:59* Test Item Value Reference Range Interpretation Comme nts POCT GLU (test code = 1253611813) 90 mg/dL 70-110 Lab Interpretation (test cod e = 83147-5) Normal [facility] GLUCOSE (AUTOMATED)2022-09-11 23:13:35* Test Item Value Reference Range Interpretation Comme nts POCT GLU (test code = 1869307787) 120 mg/dL 70-110 H Lab Interpretation (test cod e = 97280-9) [facility]normal [facility]A1C)2022-09-11 20:41:39* Test Item Value Reference Range Interpretation Comme nts HGB A1C (test code = 4548-4) 10.1 % 4.0-5.7 H RAFAEL (test code = RAFAEL) Reference RangesNormal: <5.7%Prediabetes: 5.7 - 6.4%Diabetes: > 6.5% Lab Interpretation (test code = 69700-8) Abnormal [facility] GLUCOSE (AUTOMATED)2022-09-11 19:01:23* Test Item Value Reference Range Interpretation Comme nts POCT GLU (test code = 6860332042) 302 mg/dL 70-110 H Lab Interpretation (test cod e = 90970-9) Abnormal [facility] GLUCOSE (AUTOMATED)2022-09-11 19:01:23* Test Item Value Reference Range Interpretation Comme nts POCT GLU (test code = 1708883860) 277 mg/dL 70-110 H Lab Interpretation (test cod e = 31197-4) Abnormal [facility] GLUCOSE (AUTOMATED)2022-09-11 19:01:23* Test Item Value Reference Range Interpretation Comme nts POCT GLU (test code = 7562952912) 283 mg/dL 70-110 H Lab Interpretation (test cod e = 83521-4) Abnormal [facility] GLUCOSE(AGE >30DAYS)2022-09-11 17:22:00* Test Item Value Reference Range Interpretation Comme nts POCT Glu (age>30days) (test code = 3342) 277 mg/dL 70-110 A Lab Interpretation (test cod e = 26794-0) [facility] Metabolic Pxibw3024-77-79 16:11:48* Test Item Value Reference Range Interpretation Comme nts NA (test code = 2865004931) 137 mmol/L 135-145 K (test code = 8560360282) 4.5 mmol/L 3.5-5.0 CL (test code = 2440437966) 102 mmol/L 98-108 CO2 TOTAL (test code = 4046652952) 22 mmol/L 23-31 L AGAP (test code = 9193224116) 2-16 BUN (test code = 3973435103) 15 mg/dL 7-23 GLUCOSE (test code = 3713973156) 318 mg/dL 70-110 H CREATININE (test code = 9366857082) 0.76 mg/dL 0.60-1.25 TOTAL BILI (test code = 0210842860) 1.5 mg/dL 0.1-1.1 H CALCIUM (test code = 6623072910) 9.1 mg/dL 8.6-10.6 T PROTEIN (test code = 6748468982) 7.7 g/dL 6.3-8.2 ALBUMIN (test code = 7937163108) 5.0 g/dL 3.5-5.0 ALK PHOS (test code = 6623690277) 124 U/L 34-122 H ALTv (test code = 1742-6) 173 U/L 5-50 H AST(SGOT) (test code = 8968959238) 76 U/L 13-40 H eGFR (test code = 4176523641) mL/min/1.73m2 RAFAEL (test code = RAFAEL) Association [...] imaging tests). Lab Interpretation (test code = 06621-5) [facility], Xurjg1914-81-12 16:11:22* Test Item Value Reference Range Interpretation Comme nts LIPASE (test code = 3367154186) 22 U/L 0-220 Lab Interpretation (test cod e = 20736-4) Normal [facility] with Qghdbbjxjybj7620-67-90 15:57:05* Test Item Value Reference Range Interpretation Comme nts WBC (test code = 6690-2) See_Comment H [Automated [employer]] The system which generated this result transmitted reference range: 4.20 - 10.70 10*3/?L. The reference range was not used to interpret this result as normal/abnormal. RBC (test code = 789-8) See_Comment [Automated [employer]] The system which generated this result transmitted [...] g/dL 31.2-35.0 H RDW-SD (test code = 88020-8) 35.5 fL 38.5-51.6 L RDW-CV (test code = 788-0) 11.8 % 12.1-15.4 L PLT (test code = 777-3) See_Comment [Automated messa ge] The system which generated this result transmitted reference range: 150 - 328 10*3/?L. The reference range was not used to interpret this result as normal/abnormal. MPV (test code = 66153-3) 10.3 fL 9.8-13.0 NRBC/100 WBC (test code = 4895301131) See_Comment [Automated [employer] ssage] The system which generated this result transmitted reference range: 0.0 - 10.0 /100 WBCs. The reference range was not used to interpret this result as normal/abnormal. NRBC x10^3 (test code = 7352601419) See_Comment [Automated messa ge] The system which generated this result transmitted reference range: 10*3/?L. The reference range was not used to interpret this result as normal/abnormal. GRAN MAT (NEUT) % (test code = 770-8) 64.6 % IMM GRAN % (test code = 8235076798) 0.50 % LYMPH % (test code = 736-9) 25.3 % MONO % (test code = 5905-5) 7.3 % EOS % (test code = 713-8) 1.9 % BASO % (test code = 706-2) 0.4 % GRAN MAT x10^3(ANC) (test code = 0806610926) 7.62 10*3/uL 1.99-6.95 H IMM GRAN x10^3 (test code = 5936355151) 0.06 10*3/uL 0.00-0.06 LYMPH x10^3 (test code = 731-0) 2.98 10*3/uL 1.09-3.23 MONO x10^3 (test code = 742-7) 0.86 10*3/uL 0.36-1.02 EOS x10^3 (test code = 711-2) 0.22 10*3/uL 0.06-0.53 BASO x10^3 (test code = 704-7) 0.05 10*3/uL 0.01-0.09 Lab Interpretation (test code = 05558-6) [facility]2020-11-08 20:30:00* Test Item Value Reference Range Interpretation Comme [facility] POCT GLU (test code = 8129716422) 181 mg/dL 70-110 H Lab Interpretation (test cod e = 99521-8) Abnormal [facility] Metabolic Panel (NA, K, CL, CO2, GLUCOSE, BUN, CREATININE, CA)2020-11-08 18:48:00* Test Item Value Reference Range Interpretation Comme [facility] NA (test code = 3253956847) 134 mmol/L 135-145 L K (test code = 4402912239) 4.0 mmol/L 3.5-5 CL (test code = 1008756434) 96 mmol/L 98-108 L CO2 TOTAL (test code = 5397806710) 29 mmol/L 23-31 AGAP (test code = 8314591187) 2-16 BUN (test code = 5598803933) 10 mg/dL 7-23 GLUCOSE (test code = 5117348144) 368 mg/dL 70-110 H CREATININE (test code = 4444669145) 0.58 mg/dL 0.6-1.25 L CALCIUM (test code = 9253418477) 9.1 mg/dL 8.6-10.6 eGFR Calculation (Non-) (test code = 1255408679) mL/min/1.73m2 eGFR Calculation () (test code = 0824883861) mL/min/1.73m2 RAFAEL (test code = RAFAEL) Association [...] imaging tests). Lab Interpretation (test code = 70937-8) [facility]normal [facility] (ALB, T.PRO, BILI T, BU/BC, ALT, AST, ALK PHOS)2020-11-08 18:48:00* Test Item Value Reference Range Interpretation Comme nts TOTAL BILI (test code = 8879849254) 0.8 mg/dL 0.1-1.1 BILI UNCON (test code = 0775033199) 0.8 mg/dL 0.1-1.1 BILI CONJ (test code = 6468609780) 0.0 mg/dL 0-0.3 T PROTEIN (test code = 5541777855) 7.8 g/dL 6.3-8.2 ALBUMIN (test code = 8809236974) 4.7 g/dL 3.5-5 ALK PHOS (test code = 9089104235) 147 U/L 34-122 H ALTv (test code = 1742-6) 48 U/L 5-50 AST(SGOT) (test code = 9777100172) 42 U/L 13-40 H Lab Interpretation (test cod e = 23401-6) [facility]normal [facility] Bmycz7286-49-07 18:48:00* Test Item Value Reference Range Interpretation Comme nts LIPASE (test code = 5066537700) 27 U/L 0-220 Lab Interpretation (test cod e = 46659-4) Normal [facility] Henderson[facility]inalysis[facility]21[facility] 18:39:00* Test Item Value Reference Range Interpretation Comme nts APPEARANCE (test code = 0226276313) Clear Clear COLOR (test code = 0144083973) Yellow Yellow PH (test code = 5375407903) 4.8-8.0 SP GRAVITY (test code = 1143442363) 1.003-1.030 H GLU U QUAL (test code = 6302693543) 500 mg/dL Normal A BLOOD (test code = 2701072638) Negative Negative KETONES (test code = 5247571255) 5 mg/dL Negative A PROTEIN (test code = 2887-8) Negative Negative UROBILIN (test code = 8260215994) Normal Normal BILIRUBIN (test code = 5086206251) Negative Negative NITRITE (test code = 3620166495) Negative Negative LEUK ALYSHA (test code = 2623400013) Negative Negative RBC/HPF (test code = 3731809994) See_Comment [Automated [employer]] The system which generated this result transmitted reference range: 0 - 3 HPF. The reference range was not used to interpret this result as normal/abnormal. WBC/HPF (test code = 7427353423) See_Comment [Automated [employer]] The system which generated this result transmitted reference range: 0 - 5 HPF. The reference range was not used to interpret this result as normal/abnormal. BACTERIA (test code = 6902542805) Negative Negative Lab Interpretation (test code = 61395-3) [facility] [id number] 18:36:00* Test Item Value Reference Range Interpretation Comme nts WBC (test code = 6690-2) See_Comment [Automated [employer]] The system which generated this result [...] g/dL 31.2-35 H RDW-SD (test code = 82329-0) 33.7 fL 38.5-51.6 L RDW-CV (test code = 788-0) 11.5 % 12.1-15.4 L PLT (test code = 777-3) See_Comment H [Automated messa ge] The system which generated this result transmitted reference range: 150 - 328 10*3/?L. The reference range was not used to interpret this result as normal/abnormal. MPV (test code = 14023-7) 10.2 fL 9.8-13 NRBC/100 WBC (test code = 7262577893) See_Comment [Automated [employer]] The system which generated this result transmitted reference range: 0.0 - 10.0 /100 WBCs. The reference range was not used to interpret this result as normal/abnormal. NRBC x10^3 (test code = 6271149251) <0.01 See_Comment [Automated messa ge] The system which generated this result transmitted reference range: 10*3/?L. The reference range was not used to interpret this result as normal/abnormal. GRAN MAT (NEUT) % (test code = 770-8) 60.3 % IMM GRAN % (test code = 3344689710) 0.70 % LYMPH % (test code = 736-9) 29.2 % MONO % (test code = 5905-5) 4.7 % EOS % (test code = 713-8) 3.9 % BASO % (test code = 706-2) 1.2 % GRAN MAT x10^3(ANC) (test code = 0810268036) 6.44 10*3/uL 1.99-6.95 IMM GRAN x10^3 (test code = 2805682737) 0.07 10*3/uL 0-0.06 H LYMPH x10^3 (test code = 731-0) 3.12 10*3/uL 1.09-3.23 MONO x10^3 (test code = 742-7) 0.50 10*3/uL 0.36-1.02 EOS x10^3 (test code = 711-2) 0.42 10*3/uL 0.06-0.53 BASO x10^3 (test code = 704-7) 0.13 10*3/uL 0.01-0.09 H Lab Interpretation (test code = 42866-6) Abnormal [facility] Notes Date/Time Note Provider Source 2024-01-07 12:39:09 Bedside glucose 155. Donita García RN [facility] 2024-01-07 08:29:00 Jimenez Caal is a 28 year old male presents to ED with complaints of abdominal pain, N/V/D x 2 days. Patient reports hx of pancreatitis, states "I think I'm having a flare up." Patient points to midepigastric area when identifying pain, repots tenderness, and rates pain 7 out 10. Patient is AAoX4, RR e/u on RA, NAD. [facility] 2024-01-07 08:12:17 Jimenez Caal is a 28 year old male who presents to the ED ambulatory with complaints of abdominal pain and vomiting x3 days pt reports vomiting 5 times today AOx4. Respirations even and unlabored. Skin warm and dry. NAD noted. Patient to room for further evaluation. Kojo Art RN [facility]
[2024-10-26] MEDS ORDERED: MORPHINE 4 MG/ML SYR ONE (08:06)
[2024-10-26] MEDS ORDERED: ONDANSETRON 4 MG/2 ML VIAL ONE (08:06)
[2024-10-26] MEDS ORDERED: NA CHLORIDE 0.9% 1,000 ML ONE (08:06)
[2024-10-26] MEDS ORDERED: FAMOTIDINE 20 MG/2 ML VIAL IV ONE (08:06)
[2024-10-26 08:38] LABS: Absolute Basophils 0.1 K/uL (0-0.5); Absolute Eosinophils 0.1 K/uL (0-0.5); Absolute Lymphocytes (CBC) 1.8 K/uL (0.7-4.9); Absolute Monocytes 0.5 K/uL (0.1-1.3); Absolute Neutrophil 5.3 K/uL (1.8-8.0); Eosinophils % 1.3 % (0-4.4); Hematocrit 43.7 % (39.6-49.0); Hemoglobin 15.2 g/dL (13.6-17.9); Lymphocytes % 22.9 % (15.3-44.8); MCH 29.3 pg (27.0-35.0); MCHC 34.7 g/dL (32.0-36.0); MCV 84.2 fL (80-100); MPV 8.6 fL (7.6-11.3); Monocytes % 6.8 % (3.3-12.3); Nucleated Red Blood Cells % 0.3 % (0-0); Platelets 238 thou/uL (152-406); RBC Red Blood Cell Count 5.19 M/uL (4.33-5.43); Red Cell Distribution Width 12.9 % (12.1-15.2)
[2024-10-26 08:52] LABS: Albumin 3.8 g/dL (3.4-5.0); Albumin/Globulin Ratio 1.1 (1.1-1.8); Anion Gap 10.3 mEq/L (5.0-15.0); Globulin 3.6 g/dL (2.3-3.5); Potassium 3.3 mEq/L (3.5-5.1); Protein, Total 7.4 g/dL (6.4-8.2)
--- NOTE | 2024-10-26 09:03 | RAD REPORT ---
EXAMINATION: CT ABDOMEN AND PELVIS WITH CONTRAST CLINICAL INDICATION: ABD PAIN TECHNIQUE: CT abdomen and pelvis was performed, after the administration of IV contrast, as per [facility] protocol. Axial, sagittal and coronal reconstructions were obtained. One or more of the following dose reduction techniques were used: Automated exposure control, adjustment of the mA and k V according to patient size, and iterative reconstruction. Unless otherwise specified, incidental findings do not require dedicated imaging follow-up. COMPARISON: 05/14/2024 FINDINGS: LOWER CHEST: The visualized lung bases are clear. Subtle thickening of the distal esophagus. LIVER: Mild fatty liver is present. No focal lesion or biliary dilatation is seen. Cholecystectomy clips. SPLEEN: Normal size. No focal lesion. PANCREAS: Irregular dilatation of the pancreatic duct with numerous calcifications compatible with ch ronic pancreatitis. ADRENALS: Normal; no mass. KIDNEYS: Normal size and contour. No hydronephrosis. GASTROINTESTINAL TRACT: No evidence of free air, significant intra-abdominal free fluid, bowel obstru ction or abscess. Mild stool is retained throughout the colon. APPENDIX: Normal appendix. LYMPH NODES: No lymphadenopathy. MUSCULOSKELETAL: No acute or suspicious osseous abnormality. ADDITIONAL FINDINGS: None. IMPRESSION: No acute abnormalities seen in the abdomen or pelvis. Stigmata of chronic pancreatitis noted.
[2024-10-26 10:02] LABS: Sqamous Epithelial <5 /HPF (None Seen); Urine Bacteria None Seen /HPF (<20); Urine Bilirubin NEGATIVE (Negative); Urine Blood Negative (Negative); Urine Clarity Clear (Clear); Urine Color Light-Yellow (Yellow); Urine Culture Reflex Order NOT NEEDED; Urine Glucose 4+ (Negative); Urine Ketones 3+ (Negative); Urine Microscopic Reflex YN ORDER UMIC; Urine Mucus Slight /HPF (None Seen); Urine Nitrite NEGATIVE (Negative); Urine Protein NEGATIVE (Negative); Urine RBC None Seen /HPF (None Seen); Urine Urobilinogen Normal (Normal); Urine WBC <5 /HPF (<5); Urine pH 6.5 (5.0-7.0)
[2024-10-26 10:07] LABS: Specific Gravity > 1.030 (1.005-1.030)
--- NOTE | 2024-10-26 11:44 | ER ---
Nurse's Notes [facility] Name: Jimenez Patrick Age: 29 yrs Sex: Male : 1995 Arrival Date: 10/26/2024 Time: 07:44 Bed 13 Private MD: Diagnosis: Epigastric abdominal tenderness;Other chronic pancreatitis;Vomiting Presentation: 10/26 08:00 Chief complaint: Patient states: abd pain and nausea that began 3 hours ago. HX of ss chronic pancreatitis. Pt states, "I think it's a flare up.". Coronavirus screen: Client denies travel out of the [place] in the last 14 days. Ebola Screen: Patient denies exposure to infectious person. Patient denies travel to an Ebola-affected area in the 21 days before illness onset. Initial Sepsis Screen: Does the patient meet any 2 criteria? No. Patient's initial sepsis screen is negative. Does the patient have a suspected source of infection? No. Patient's initial sepsis screen is negative. Risk Assessment: Do you want to hurt yourself or someone else? Patient reports no desire to harm self or others. Onset of symptoms was October 26, 2024. 08:00 Method Of Arrival: Ambulatory ss 08:00 Acuity: MOESS 3 ss Historical: - Allergies: 08:02 NKA; ss - PMHx: 08:02 Chronic Pancreatitis; Diabetes - IDDM; Hypertensive disorder; ss - PSHx: 08:02 Cholecystectomy; I\\T\\D; stents x 2 in pancreas; ss - Immunization history:: Client reports having NOT received the Covid vaccine. - Infectious Disease History:: Denies. - Social history:: Smoking status: Patient denies any tobacco usage or history of. Screenin:00 [facility] ED Fall Risk Assessment (Adult) History of falling in the last 3 months, db including since admission No falls in past 3 months (0 pts) Confusion or Disorientation No (0 pts) Intoxicated or Sedated No (0 pts) Impaired Gait No (0 pts) Mobility Assist Device Used No (0 pt) Altered Elimination No (0 pt) Score/Fall Risk Level 0 - 2 = Low Risk Oriented to surroundings, Maintained a safe environment. Abuse screen: Denies threats or abuse. Denies injuries from another. Nutritional screening: No deficits noted. Tuberculosis screening: No symptoms or risk factors identified. Assessment: 08:34 Reassessment: Patient appears in no apparent distress at this time. Patient and/or db family updated on plan of care and expected duration. Pain level reassessed. Patient is alert, oriented x 3, equal unlabored respirations, skin warm/dry/pink. General: Appears in no apparent distress. comfortable, Behavior is calm, cooperative. Neuro: Level of Consciousness is awake, alert, obeys commands, Oriented to person, place, time, situation. Respiratory: Airway is patent Respiratory effort is even, unlabored, Respiratory pattern is regular, symmetrical. 11:36 Reassessment: Patient appears in no apparent distress at this time. Patient and/or db family updated on plan of care and expected duration. Pain level reassessed. Patient is alert, oriented x 3, equal unlabored respirations, skin warm/dry/pink. Pain: Denies pain. GI: Bowel sounds Abd is soft. 12:19 Reassessment: Patient appears in no apparent distress at this time. Patient and/or db family updated on plan of care and expected duration. Pain level reassessed. Patient is alert, oriented x 3, equal unlabored respirations, skin warm/dry/pink. Vital Signs: 07:56 BP 157 / 101; Pulse 65; Resp 18; Pulse Ox 99% on R/A; db 08:00 BP 157 / 101; Pulse 83; Resp 14; Temp 98(O); Pulse Ox 98% on R/A; Weight 92.08 kg; ss Height 5 ft. 9 in. ; Pain 6/10; 08:30 BP 158 / 106; Pulse 81; Resp 18; Pulse Ox 98% on R/A; db 08:30 BP 158 / 106; Pulse 81; Resp 18; Pulse Ox 98% on R/A; db 09:45 BP 160 / 112; Pulse 66; Resp 18; Pulse Ox 99% on R/A; db 11:30 BP 150 / 96; Pulse 68; Resp 18; Pulse Ox 99% on R/A; db 12:00 BP 142 / 96; Pulse 72; Resp 18; Pulse Ox 99% on R/A; db 08:00 Body Mass Index 29.98 (92.08 kg, 175.26 cm) 08:00 Pain Scale: Adult ED Course: 07:50 Patient arrived in ED. mr 07:52 Luis Laura MD is Attending Physician. [facility] 07:57 Annmarie Campbell, RN is Primary Nurse. db 08:02 Triage completed. ss 08:02 Arm band placed on right wrist. ss 08:20 Inserted saline lock: 20 gauge in right antecubital area, using aseptic technique. db Blood collected. Flushed with 10 mL NS. 08:55 CT Abd/Pelvis - IV Contrast Only In Process Unspecified. EDMS 10:01 Patient has correct armband on for positive identification. Call light in reach. Side db rails up X 1. Pulse ox on. NIBP on. Warm blanket given. Pillow given. 11:43 Char Levi MD is Referral Physician. [facility] 12:19 Provided Education on: DISCHARGE AND FOLLOWUP. db 12:19 No provider procedures requiring assistance completed. IV discontinued, intact, db bleeding controlled, No redness/swelling at site. Administered Medications: 08:20 Drug: NS 0.9% IV 1000 ml IV at 1 bolus Per protocol; to be given as a bolus over 60 db minutes Route: IV; Rate: 1 bolus; Site: right antecubital; 12:20 Follow up: Response: No adverse reaction; IV Status: Completed infusion; IV Intake: db 1000ml 08:22 Drug: Famotidine IVP 20 mg IVP once; dilute with 10 mL 0.9% NaCl; give over 2 minutes db Route: IVP; Site: right antecubital; 12:20 Follow up: Response: No adverse reaction db 08:22 Drug: Ondansetron IVP 4 mg IVP once; over 2 minutes Route: IVP; Site: right antecubital;db 12:21 Follow up: Response: No adverse reaction db 08:22 Drug: morphine IVP or IV 4 mg IVP once over 4 mins Route: IVP; Infused Over: 4 mins; db Site: right antecubital; 12:21 Follow up: Response: No adverse reaction db Medication: 12:19 VIS not applicable for this client. db Intake: 12:20 IV: 1000ml; Total: 1000ml. db Outcome: 11:43 Discharge ordered by . [facility] 12:19 Discharged to home ambulatory, db 12:19 Condition: stable 12:19 Discharge instructions given to patient, Instructed on discharge instructions, follow up and referral plans. Prescriptions given X 4, 12:21 Patient left the ED. db Signatures: Dispatcher [employer] Luis Reynoso MD MD cha Rivera, Sofía, [facility] Reg mr Mikaela Buck, ERIC RN Annmarie Cervantes RN RN db
--- NOTE | 2024-10-26 11:44 | EDPHYS ---
Physician Documentation [facility] Name: Jimenez Patrick Age: 29 yrs Sex: Male : 1995 Arrival Date: 10/26/2024 Time: 07:44 Bed 13 Private MD: ARMIDA Physician Luis Laura HPI: 10/26 11:38 This 29 yrs old Male presents to ER via Ambulatory with complaints of salbador Abdominal Pain, Vomiting. 11:38 The patient presents to the emergency department with nausea, vomiting, abdominal pain, salbador of the epigastric area, right upper quadrant and left upper quadrant. Onset: The symptoms/episode began/occurred 2 day(s) ago. Possible causes: unknown, CHRONIC PANCREATITIS. The symptoms are aggravated by food , The symptoms are alleviated by remaining still. Associated signs and symptoms: Pertinent positives: abdominal pain, nausea, vomiting. Severity of symptoms: At their worst the symptoms were moderate in the emergency department the symptoms are unchanged. The patient has experienced similar episodes in the past, multiple times. Historical: - Allergies: 08:02 NKA; ss - PMHx: 08:02 Chronic Pancreatitis; Diabetes - IDDM; Hypertensive disorder; ss - PSHx: 08:02 Cholecystectomy; I\T\D; stents x 2 in pancreas; ss - Immunization history:: Client reports having NOT received the Covid vaccine. - Infectious Disease History:: Denies. - Social history:: Smoking status: Patient denies any tobacco usage or history of. ROS: 11:39 Constitutional: Negative for fever, chills, and weight loss, Eyes: Negative for injury, salbador pain, redness, and discharge, ENT: Negative for injury, pain, and discharge, Neck: Negative for injury, pain, and swelling, Cardiovascular: Negative for chest pain, palpitations, and edema, Respiratory: Negative for shortness of breath, cough, wheezing, and pleuritic chest pain, Back: Negative for injury and pain, : Negative for injury, bleeding, discharge, and swelling, MS/Extremity: Negative for injury and deformity, Skin: Negative for injury, rash, and discoloration, Neuro: Negative for headache, weakness, numbness, tingling, and seizure, Psych: Negative for depression, anxiety, suicide ideation, homicidal ideation, and hallucinations, Allergy/Immunology: Negative for hives, rash, and allergies, Endocrine: Negative for neck swelling, polydipsia, polyuria, polyphagia, and marked weight changes, Hematologic/Lymphatic: Negative for swollen nodes, abnormal bleeding, and unusual bruising, 11:39 Abdomen/GI: Positive for abdominal pain, nausea and vomiting, of the epigastric area, right upper quadrant and left upper quadrant, Exam: 11:39 Constitutional: This is a well developed, well nourished patient who is awake, alert, salbador and in no acute distress. Head/Face: Normocephalic, atraumatic. Eyes: Pupils equal round and reactive to light, extra-ocular motions intact. Lids and lashes normal. Conjunctiva and sclera are non-icteric and not injected. Cornea within normal limits. Periorbital areas with no swelling, redness, or edema. ENT: Nares patent. No nasal discharge, no septal abnormalities noted. Tympanic membranes are normal and external auditory canals are clear. Oropharynx with no redness, swelling, or masses, exudates, or evidence of obstruction, uvula midline. Mucous membranes moist. Neck: Trachea midline, no thyromegaly or masses palpated, and no cervical lymphadenopathy. Supple, full range of motion without nuchal rigidity, or vertebral point tenderness. No Meningismus. Chest/axilla: Normal chest wall appearance and motion. Nontender with no deformity. No lesions are appreciated. Cardiovascular: Regular rate and rhythm with a normal S1 and S2. No gallops, murmurs, or rubs. Normal PMI, no JVD. No pulse deficits. Respiratory: Lungs have equal breath sounds bilaterally, clear to auscultation and percussion. No rales, rhonchi or wheezes noted. No increased work of breathing, no retractions or nasal flaring. Back: No spinal tenderness. No costovertebral tenderness. Full range of motion. Male : Normal genitalia with no discharge or lesions. Skin: Warm, dry with normal turgor. Normal color with no rashes, no lesions, and no evidence of cellulitis. MS/ Extremity: Pulses equal, no cyanosis. Neurovascular intact. Full, normal range of motion., bilateral aka Neuro: Awake and alert, GCS 15, oriented to person, place, time, and situation. Cranial nerves II-XII grossly intact. Motor strength 5/5 in all extremities. Sensory grossly intact. Cerebellar exam normal. Normal gait. Psych: Awake, alert, with orientation to person, place and time. Behavior, mood, and affect are within normal limits. 11:39 Abdomen/GI: Inspection: abdomen appears normal, Bowel sounds: normal, Palpation: mild abdominal tenderness, in the epigastric area, right upper quadrant and left upper quadrant, Liver: is firm, Hernia: not appreciated, Vital Signs: 07:56 BP 157 / 101; Pulse 65; Resp 18; Pulse Ox 99% on R/A; db 08:00 BP 157 / 101; Pulse 83; Resp 14; Temp 98(O); Pulse Ox 98% on R/A; Weight 92.08 kg; ss Height 5 ft. 9 in. ; Pain 6/10; 08:30 BP 158 / 106; Pulse 81; Resp 18; Pulse Ox 98% on R/A; db 08:30 BP 158 / 106; Pulse 81; Resp 18; Pulse Ox 98% on R/A; db 09:45 BP 160 / 112; Pulse 66; Resp 18; Pulse Ox 99% on R/A; db 11:30 BP 150 / 96; Pulse 68; Resp 18; Pulse Ox 99% on R/A; db 12:00 BP 142 / 96; Pulse 72; Resp 18; Pulse Ox 99% on R/A; db 08:00 Body Mass Index 29.98 (92.08 kg, 175.26 cm) ss 08:00 Pain Scale: Adult ss MDM: 07:52 Medical Screening Exam initiated salbador 11:41 Differential diagnosis: Nonspecific abd pain, gastritis, cholecystitis, pancreatitis, salbador appendicitis, viral gastroenteritis, gastroenteritis, appendicitis, bowel obstruction, cholecystitis, Cholelithiasis, diverticulitis, gastritis, gastroesophageal reflux disease. Data reviewed: vital signs, nurses notes, lab test result(s), radiologic studies, CT scan. Consideration of Admission/Observation Escalation of care including admission/observation considered. I considered the following discharge prescriptions or medication management in the emergency department Medications were administered in the Emergency Department. See MAR. Independent interpretation of the following test(s) in the Emergency Department CT Scan: My interpretation is CT ABD/ PEL. Historians other than the Patient: PT WELL INFORMED. Care significantly affected by the following chronic conditions: Diabetes, Hypertension, CHRONIC PANCREATITIS. 10/26 07:53 Order name: CBC with Diff; Complete Time: 11:28 [facility] 10/26 07:53 Order name: CMP; Complete Time: 11:28 [facility] 10/26 07:53 Order name: Lipase; Complete Time: : [facility] 10/26 07:53 Order name: Urinalysis w/ reflexes; Complete Time: 11: [facility] 10/26 07:53 Order name: CT Abd/Pelvis - IV Contrast Only; Complete Time: 11: [facility] 10/26 07:53 Order name: IV Saline Lock; Complete Time: 08: [facility] 10/26 07:53 Order name: Labs collected and sent; Complete Time: 08: [facility] Administered Medications: 08:20 Drug: NS 0.9% IV 1000 ml IV at 1 bolus Per protocol; to be given as a bolus over 60 db minutes Route: IV; Rate: 1 bolus; Site: right antecubital; 12:20 Follow up: Response: No adverse reaction; IV Status: Completed infusion; IV Intake: db 1000ml 08:22 Drug: Famotidine IVP 20 mg IVP once; dilute with 10 mL 0.9% NaCl; give over 2 minutes db Route: IVP; Site: right antecubital; 12:20 Follow up: Response: No adverse reaction db 08:22 Drug: Ondansetron IVP 4 mg IVP once; over 2 minutes Route: IVP; Site: right antecubital;db 12:21 Follow up: Response: No adverse reaction db 08:22 Drug: morphine IVP or IV 4 mg IVP once over 4 mins Route: IVP; Infused Over: 4 mins; db Site: right antecubital; 12:21 Follow up: Response: No adverse reaction db Disposition Summary: 10/26/24 11:43 Discharge Ordered Notes: Location: Home salbador Problem: new salbador Symptoms: have improved salbador Condition: Stable salbador Diagnosis - Epigastric abdominal tenderness salbador - Other chronic pancreatitis salbador - Vomiting salbador Followup: salbador - With: Private Physician - When: 2 - 3 days - Reason: Recheck today's complaints, Continuance of care, Re-evaluation by your physician Followup: salbador - With: Char Levi MD - When: 2 - 3 days - Reason: Recheck today's complaints, Continuance of care, Re-evaluation by your physician Discharge Instructions: - Discharge Summary Sheet salbador - Abdominal Pain, Adult salbador - Acute Pancreatitis salbador - Acute Pancreatitis, [id number] salbador - Abdominal Pain, Adult, [id number] salbador - Chronic Pancreatitis salbador - Pancreatitis Eating Plan [facility] Forms: - Medication Reconciliation Form salbador - Antibiotic Education salbador - Prescription Opioid Use salbador - Patient Portal Instructions [facility] - Leadership Thank You Letter salbador - Work release form db Prescriptions: - ondansetron 4 mg Oral Tablet,disintegrating - take 1 tablet ORAL route every 6 hours for 5 days; 20 tablet; Refills: 0, [facility] Product Selection Permitted - Pepcid 20 mg Oral tablet - take 1 tablet ORAL route every 12 hours for 21 days; 42 tablet; Refills: 0, [facility] Product Selection Permitted - promethazine 25 mg Oral tablet - take 1 tablet ORAL route every 6 hours As needed FOR INTRACTABLE NAUSEA AND salbador VOMITING; 20 tablet; Refills: 0, Product Selection Permitted - dicyclomine 20 mg Oral tablet - take 1 tablet ORAL route 4 times per day; 28 tablet; Refills: 0, Product [facility] Selection Permitted Signatures: Dispatcher [employer] EDLuis Gonzales MD MD cha Blanchard, [place], ERIC RN Annmarie Campbell RN RN db Corrections: (The following items were deleted from the chart) 07:53 07:53 Abdomen Pelvis W [id number].[id number] ordered. EDMS EDMS
[2024-10-27 04:26] VITALS: TEMP 98
[2024-10-27 04:30] VITALS: O2SAT 99
[2024-10-27 04:33] VITALS: BP 142/96
== END 2024-10-26 12:21 | disposition home or self-care (01) ==
LOC: ER 07:44
DX: R10.816 Epigastric abdominal tenderness (principal); R11.10 Vomiting, unspecified; K86.1 Other chronic pancreatitis; E11.9 Type 2 diabetes mellitus without complications; I10 Essential (primary) hypertension
CPT/HCPCS: 85025; 81001; 36415; 83690; 80053; 74177; Q9967; J2405; J7030; 96361; 96374; 96375; 99284

== ENCOUNTER 2025-04-14 17:39 | Emergency (ER) | payer OTHER ==
--- OUTSIDE RECORDS SUMMARY | 2025-04-14 17:46 | XMS REPORT | Continuity of Care Document ---
Author Name Unknown Address [address] [facility] [place] [address] [facility] Address [address] [facility] [place] [address] Care Team Providers Care Pharmacy Scheduler Name Role Phone Pcp, Patient Does Not Have A Primary Care Physic adry Campaigns, Generic Provider Attending Clinician Unavailable CARLOS SANCHES Attending Clinician Unavailable JIM TRUONG Attending Clinician Unavailable JIM TRUONG Attending Clinician Unavailable MICHAEL BRAVO Attending Clinician Unavailable BROOKLYNN AGUILAR Attending Clinician Unavailable NANCY WEST Attending Clinician Unavailabl bret Campaigns, Generic Provider Attending Clinician Unavailable ELDA THOMPSON Attending Clinician Unavailab Pablo Burch MD Attending Clinician + [phone] Elda Thompson DO Attending Clinician +[phone] GENESIS MONTGOMERY Attending Clinician Unavailab barbara LAB90 Attending Clinician Unavailable Nabil Almanzar RN Attending Clinician Unavail able LAZARO HUNTER Attending Clinician Unavailable Augustin Kincaid Attending Clinician + [phone] Esa Ko DO Attending Clinician [phone] Lazaro Hunter MD Attending Clinician [phone] Syeda Alberts Attending Clinician + [phone] SYEDA PERSAUD Attending Clinician Unavailable Doctor Unassigned, [place] Attending Clinician U aceailJIM Jaquez Admitting Clinician Unavailable LAZARO HUNTER Admitting Clinician Unavailable Lazaro Hunter MD Admitting Clinician Payers Payer Name Policy Type Policy Number Effective Date Expirati on Date Source MICHELET MP [facility] S[facility] 5 O GRAPE PICKER 94 ON 9 [id number] 2023 00:00:00 Problems Condition Name Condition Details Condition Category Status Onset Date Resolution Date Last Treatment Date Treating Clinician Comments Source 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 Disease Active - 00:00: 00 [facility] Gastropare sis Gastropare sis Disease Active 5- 00:00: 00 [facility] Current moderate episode of major depressive disorder Current moderate episode of major depressive disorder Disease Active 3-26 00:00: 00 Parvin Semichaelold - Externa l Elevated liver function tests Elevated liver function tests Disease Active - 00:00: 00 Parvin Seybold - Externa l DM (diabetes mellitus) (multi HCC) DM (diabetes mellitus) (multi HCC) Disease Active - 00:00: 00 Parvin Seybold - Externa l Type 1 diabetes mellitus with hyperglyce tess (multi HCC) Type 1 diabetes mellitus with hyperglyce tess (multi HCC) Disease Active - 00:00: 00 Parvin Seybold - Externa l Chronic pancreatit is (multi HCC) Chronic pancreatit is (multi HCC) Disease Active 2- 00:00: 00 Parvin Seybold - Externa l HTN (hypertens ion) HTN (hypertens ion) Disease Active 2- 00:00: 00 Parvin Seybold - Externa l Acute on chronic pancreatit is Acute on chronic pancreatit is Disease Active -08 00:00: 00 [facility] Epigastric pain Epigastric pain Disease Active - 00:00: 00 [facility] Obesity (BMI 30-39.9) Obesity (BMI 30-39.9) Disease Active - 00:00: 00 [facility] Mesenteric adenitis [...] might be different from the original. 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 [facility] Allergies, Adverse Reactions, Alerts Allergy Name Allergy Type Status Severity Reaction(s) Onset Date Inactive Date Treating Clinician Comments Source NO KNOWN ALLERGIE S Drug Class Active [facility] Social History Social Habit Start Date Stop Date Quantity Comments Source History of tobacco use Cigarette Smoker Parvin Lee External [facility] of Occupation [facility] History SDOH Social Connections Get Together [facility] History SDOH Social Connections Mosque [facility] History SDOH Social Connections Membership [facility] History SDMS Social Connections Meetings [facility] Alcoholic beverage intake 2023-11-29 00:00:00 2023-11-29 00:00:00 Current drinker of alcohol (finding) Parvin Knowles - External Alcohol intake 2023-11-29 00:00:00 2023-11-29 00:00:00 Current drinker of alcohol (finding) Parvin Lee External Education - What is the highest level of school you have completed or the highest degree you have received? 2023-10-06 00:00:00 2023-10-06 00:00:00 High school graduate Parvin Lee External Alcohol Comment 2023-10-06 00:00:00 2023-10-06 00:00:00 occasionally Parvin Chowdhury Cigarettes smoked current (pack per day) - Reported 2023-10-06 00:00:00 2023-10-06 00:00:00 Parvin Chowdhury Cigarette pack-years 2023-10-06 00:00:00 2023-10-06 00:00:00 Parvin Setheodore - External History SDOH Physical Activity MPS 2022-09-13 00:00:00 2022-09-13 00:00:00 3 [facility] History SDOH Financial 2022-09-13 00:00:00 2022-09-13 00:00:00 5 [facility] History SDOH Food Worry 2022-09-13 00:00:00 2022-09-13 00:00:00 1 [facility] History SDOH Food Scarcity 2022-09-13 00:00:00 2022-09-13 00:00:00 1 [facility] History SDOH Transport Med 2022-09-13 00:00:00 2022-09-13 00:00:00 2 [facility] History SDOH Transport Non-Med 2022-09-13 00:00:00 2022-09-13 00:00:00 2 [facility] History of Social function 2022-09-13 00:00:00 2022-09-13 00:00:00 [facility] History SDOH Alcohol Frequency 2022-09-13 00:00:00 2022-09-13 00:00:00 1 [facility] History SDOH Alcohol Std Drinks 2022-09-13 00:00:00 2022-09-13 00:00:00 0 [facility] History SDOH Alcohol Binge 2022-09-13 00:00:00 2022-09-13 00:00:00 1 [facility] History SDOH Social Connections Phone 2022-09-13 00:00:00 2022-09-13 00:00:00 5 [facility] History SDOH Social Connections Living 2022-09-13 00:00:00 2022-09-13 00:00:00 5 [facility] History SDOH Physical Activity DPW 2022-09-13 00:00:00 2022-09-13 00:00:00 4 [facility] Tobacco use and exposure 2022-09-12 00:00:00 2022-09-12 00:00:00 Smokeless tobacco non-user [facility] Exposure to SARS-CoV-2 (event) 2022-09-01 00:00:00 2022-09-11 13:58:00 Not sure [facility] Sex assigned at 1995 00:00:00 1995 00:00:00 Parvin Knowles - External Smoking Status Start Date Stop Date Source Occasional tobacco smoker 2023-10-06 00:00:00 Parvin Knowles - External Ex-smoker 2022-09-12 00:00:00 2022-09-12 00:00:00 [facility] Unknown if ever smoked [facility] Medications Ordered Medication Name Filled Medication Name Start Date Stop Date Current Medication? Ordering Clinician Indication Dosage Frequency Signature (SIG) Comments Components Source ketorolac (TORADOL) tablet 10 mg ketorolac (TORADOL) tablet 10 mg 02-08 03:30: 00 02-08 02:53 :00 Yes 10mg 10 mg, Oral, ONCE, 1 dose, On Tue02/07/25 at 2230, Routine [facility] naproxen (NAPROSYN) 500 mg tablet 02-07 00:00: 00 Yes [id number] 500mg Take 1 tablet by mouth in the morning and 1 tablet in the evening. Take with meals. [facility] amoxicillin -pot clavulanate 875-125 mg per tablet 02-07 00:00: 00 Yes [id number] 1{tbl} Take 1 tablet by mouth in the morning and 1 tablet in the evening. [facility] ondansetron 4 mg disintegrat ing tablet 11-15 00:00: 00 Yes [id number] 4mg Take 1 tablet by mouth every 8 (eight) hours as needed for Nausea and Vomiting (N/V). [facility] Insulin Glargine (Basaglar KwikPen) 100 UNIT/ML subcutaneou s Solution Pen-injecto r 01-19 00:00: 00 Yes [id number] 9101 42U Inject 42 units into the skin daily (with breakfast) . Parvin Lee Externa l NaCl 0.9% (NS) bolus infusion 500 mL 01-06 19:00: 00 01-06 19:58 :00 No 500mL at 999 mL/hr, 500 mL, IV Infusion, ONCE, 1 dose, On 01/07/24 at 1400, STAT [facility] haloperidol lactate (HALDOL) injection 2.5 mg 01-06 18:00: 00 01-06 18:14 :00 No 2.5mg 2.5 mg, Intravenou s, ONCE, 1 dose, On 01/07/24 at 1300, [facility] insulin regular human (HUMULIN R) injection 8 Units 01-06 17:45: 00 01-06 17:04 :00 No 8U 8 Units, IV Push, ONCE, 1 dose, On 01/07/24 at 1245, MARITA
In dication for insulin: Hyperglyce tess [facility] ketorolac (TORADOL) injection 15 mg 01-06 16:30: 00 01-06 16:01 :00 No 15mg 15 mg, Slow IV Push, ONCE, 1 dose, On 01/07/24 at 1130, MARITA [facility] maalox:diph enhydrAMINE :lidocaine 2 % viscous 1:1:1 (FIRST-MOUT HWASH BLM) oral suspension 15 mL 01-06 15:30: 00 01-06 16:01 :00 No 15mL 15 mL, Oral, ONCE, 1 dose, On 01/07/24 at 1030, Routine [facility] NaCl 0.9% (NS) bolus infusion 1,000 mL 01-06 14:15: 00 01-06 16:02 :00 No 1000mL at 999 mL/hr, 1,000 mL, IV Piggyback, ONCE, 1 dose, On 01/07/24 at 0915, [facility] Sertraline HCl 25 MG oral Tablet -17 00:00: 00 Yes [id number] 25mg Take 1 tablet (25 mg total) by mouth daily. Parvin siegel Sertraline HCl 25 MG oral Tablet 3-26 00:00: 00 Yes [id number] 25mg Take 1 tablet (25 mg total) by mouth daily. Parvin siegel Insulin Glargine (Basaglar KwikPen) 100 UNIT/ML subcutaneou s Solution Pen-injecto r 11-28 00:00: 00 Yes [id number] 9101 42U Inject 42 units into the skin daily (with breakfast) 40 units sc daily. Parvin siegel Continuous Blood Gluc Sensor (Dexcom G6 Sensor) does not apply Misc 11-28 00:00: 00 Yes [id number] Check BS continuous ly. Parvin siegel Continuous Blood Gluc Transmit (Dexcom G6 Transmitter ) does not apply Misc 11-28 00:00: 00 Yes [id number] Check BS continousl y. Parvin siegel Continuous Blood Gluc Gasoline Catalyst Operator (Dexcom G6 Gasoline Catalyst Operator) does not apply Device 11-28 00:00: 00 Yes [id number] Check BS continuous ly. Parvin siegel Mirtazapine 15 MG oral Tablet 11-17 00:00: 00 11-28 00:00 :00 No 15mg Take 1 tablet (15 mg total) by mouth nightly. Parvin siegel Insulin Pen Needle (BD Pen Needle Connie 2nd Gen) 32G X 4 MM does not apply Misc 10-28 00:00: 00 Yes [id number] 9101 Use as directed. Parvin siegel Metoprolol Tartrate (LOPRESSOR) 25 MG oral Tablet 10-27 00:00: 00 Yes [id number] 25mg Take 1 tablet (25 mg total) by mouth daily. Parvin siegel Insulin Glargine (Basaglar KwikPen) 100 UNIT/ML subcutaneou s Solution Pen-injecto r 10-27 00:00: 00 Yes [id number] 9101 40 units sc daily. Parvin siegel Insulin NPH Isophane & Regular (NOVOLIN 70/30 SC) 10-06 10:25: 45 10-06 00:00 :00 No 60U Inject 60 units into the skin daily. Parvin siegel Metoprolol Tartrate (LOPRESSOR) 25 MG oral Tablet 10-06 00:00: 00 Yes [id number] 25mg Take 1 tablet (25 mg total) by mouth daily. Parvin siegel Insulin Glargine (Basaglar KwikPen) 100 UNIT/ML subcutaneou s Solution Pen-injecto r 10-06 00:00: 00 Yes [id number] 9101 40 units sc daily. Parvin siegel Continuous Blood Gluc Gasoline Catalyst Operator (Dexcom G6 Gasoline Catalyst Operator) does not apply Device 10-06 00:00: 00 Yes [id number] Check BS continuous ly. Parvin siegel Continuous Blood Gluc Sensor (Dexcom G6 Sensor) does not apply Misc 10-06 00:00: 00 Yes [id number] Check BS continuous ly. Parvin siegel Continuous Blood Gluc Transmit (Dexcom G6 Transmitter ) does not apply Misc 10-06 00:00: 00 Yes [id number] Check BS continousl y. Parvin siegel Continuous Blood Gluc Gasoline Catalyst Operator (Dexcom G6 Gasoline Catalyst Operator) does not apply Device 10-06 00:00: 00 Yes [id number] Check BS continuous ly. Parvin siegel Continuous Blood Gluc Sensor (Dexcom G6 Sensor) does not apply Misc 10-06 00:00: 00 Yes [id number] Check BS continuous ly. Parvin lLanosa christal Continuous Blood Gluc Transmit (Dexcom G6 Transmitter ) does not apply Misc 0 10-06 00:00: 00 Yes [id number] Check BS continousl y. Parvin siegel Gabapentin 100 MG oral Capsule 10-06 00:00: 00 11-28 00:00 :00 No [id number] 100mg Q.[id number] 3D Take 1 capsule (100 mg total) [...] unit/mL (70-30) injection 09-14 00:00: 00 Yes [id number] 60U inject 60 Units under the skin 2 (two) times daily before breakfast and dinner. [facility] atorvastati n 40 mg tablet 09-14 00:00: 00 10-15 05:59 :00 No [id number] 40mg Take 1 tablet by mouth at bedtime for 30 days. [facility] lisinopriL 10 mg tablet 09-14 00:00: 00 10-15 05:59 :00 No [id number] 10mg Take 1 tablet by mouth in [...] Tue09/12/22 at 2100, Until Discontinu ed, Routine [facility] lisinopriL (PRINIVIL,Z ESTRIL) tablet 10 mg 09-12 14:45: 00 Yes 10mg 10 mg, Oral, BID, First dose (after last modificati on) on 09/12/22 at 0845, Until Discontinu ed, Routine [facility] KCL (KLOR-CON M20) tablet 40 mEq 09-12 13:45: 00 09-12 14:15 :00 No 40meq 40 mEq, Oral, ONCE, 1 dose, On 09/12/22 at 0745, Routine [facility] potassium chloride in water 10 mEq/100 mL RTU 10 mEq 09-12 13:00: 00 09-12 16:20 :00 No 10meq 10 mEq, IV Piggyback, Q1H, 2 doses, First dose on 09/12/22 at 0700, Last dose on Tue09/12/22 at 0800, Administer over 60 Minutes, 100 mL [facility] lisinopriL (PRINIVIL,Z ESTRIL) tablet 5 mg 09-12 05:00: 00 09-12 14:35 :46 No 5mg 5 mg, Oral, BID, First dose on 09/11/22 at 2300, Until Discontinu ed, Routine [facility] lactated ringers IV infusion 1,000 mL 09-12 03:15: 00 Yes 1000mL at 150 mL/hr, 1,000 mL, IV Infusion, CONTINUOUS , Starting on 09/11/22 at 2115, Until Discontinu ed, Routine [facility] Sliding Scale Insulin - Lispro (HumaLOG) + Fsbg Testing 09-11 23:00: 00 Yes Subcutaneo us, TID MEALS+HS, First dose on 09/11/22 at 1700, Until Discontinu ed, Routine [facility] enoxaparin (LOVENOX) injection 40 mg 09-11 23:00: 00 Yes 40mg 40 mg, Subcutaneo us, DAILY, First dose on 09/11/22 at 1700, Until Discontinu ed, Routine [facility] lactated ringers IV infusion 1,000 mL 09-11 19:15: 00 09-12 03:05 :27 No 1000mL at 125 mL/hr, 1,000 mL, IV Infusion, CONTINUOUS , Starting on 09/11/22 at 1315, Until 09/11/22 at 2105, Routine [facility] lactated ringers IV infusion 1,000 mL 09-11 19:00: 00 09-11 19:56 :58 No 1000mL at 999 mL/hr, 1,000 mL, Intravenou s, ONCE, 1 dose, On 09/11/22 at 1300, Routine [facility] NaCl 0.9% (NS) IV infusion 1,000 mL 09-11 18:15: 00 09-11 19:00 :00 No 1000mL at 999 mL/hr, Intravenou s, ONCE, 1 dose, On 09/11/22 at 1215, MARITA [facility] FENTanyl PF (SUBLIMAZE (PF)) injection 50 mcg 09-11 18:05: 00 09-11 18:10 :00 No 50ug 50 mcg, Slow IV Push, ONCE, 1 dose, On 09/11/22 at 1215, MARITA [facility] ondansetron (ZOFRAN (PF)) injection 4 mg 09-11 18:05: 00 09-11 18:09 :00 No 4mg 4 mg, Slow IV Push, ONCE, 1 dose, On 09/11/22 at 1215, MARITA [facility] glucagon (GLUCAGEN DIAGNOSTIC KIT) injection 1 [...] to swallow or has mental status changes. [facility] ondansetron (ZOFRAN (PF)) injection 4 mg 09-11 18:04: 03 Yes 4mg 4 mg, Slow IV Push, Q6HPRN, Starting on 09/11/22 at 1204, Until Discontinu ed, Routine, Nausea and Vomiting (N/V) [facility] morpHINE (2 mg/mL) injection 2 mg 09-11 18:03: 52 09-12 18:02 :52 No 2mg 2 mg, Slow IV Push, Q4HPRN, Starting on 09/11/22 at 1203, Until 09/12/22 at 1202, Routine, Pain (scale 7-10) [facility] HYDROcodone -acetaminop hen (NORCO 5) [...] Until Discontinu ed, Routine, Pain (scale 1-3) [facility] insulin NPH and regular human 70-30 (70-30 U-100 INSULIN) 100 unit/mL (70-30) injection 60 Units 09-11 18:03: 00 09-11 18:54 :00 No 60U 60 Units, Subcutaneo us, ONCE, 1 dose, On 09/11/22 at 1215, MARITA [facility] FENTanyl PF (SUBLIMAZE (PF)) injection 50 mcg 09-11 16:38: 00 09-11 16:41 :00 No 50ug 50 mcg, Slow IV Push, ONCE, 1 dose, On 09/11/22 at 1045, [facility] iopamidol (ISOVUE 370-500 mL) injection 78 mL 09-11 16:35: 00 09-11 16:45 :00 No [id number] 78mL 78 mL, Intravenou s, ONCE, 1 dose, On 09/11/22 at 1045, Routine [facility] ondansetron (ZOFRAN (PF)) injection 4 mg 09-11 15:45: 00 09-11 15:50 :00 No [id number] 4mg 4 mg, Slow IV Push, ONCE, 1 dose, On 09/11/22 at 0945, [facility] famotidine (PEPCID (PF)) injection 20 mg 09-11 15:45: 00 09-11 15:50 :00 No [id number] 20mg 20 mg, Slow IV Push, ONCE, 1 dose, On 09/11/22 at 0945, [facility] NaCl 0.9% (NS) IV infusion 1,000 mL 09-11 15:33: 00 09-11 17:00 :00 No [id number] 1000mL at 999 mL/hr, Intravenou s, ONCE, 1 dose, On 09/11/22 at 0945, [facility] sodium chloride (NS) injection 5 mL 09-11 15:32: 59 Yes [id number] 5mL 5 mL, Intravenou s, PRN, Starting on 09/11/22 at 0932, Until Discontinu ed, Routine, IV line flushing [facility] maalox:diph enhydrAMINE :lidocaine 2 % viscous 1:1:1 (FIRST-MOUT HWASH BLM) oral suspension 15 mL 11-08 20:45: 00 11-08 20:39 :00 No 15mL 15 mL, Oral, ONCE, 1 dose, 11/08/20 at 1445, [facility] insulin regular human (HUMULIN R) injection 9 Units 11-08 20:30: 00 11-08 19:39 :00 No 9U 9 Units, Slow IV Push, ONCE, 1 dose, 11/08/20 at 1430, [facility] ondansetron (ZOFRAN (PF)) injection 4 mg 11-08 19:45: 00 11-08 18:49 :00 No 4mg 4 mg, Slow IV Push, ONCE, 1 dose, 11/08/20 at 1345, [facility] morpHINE injection 4 mg 11-08 19:45: 00 11-08 18:49 :00 No 4mg 4 mg, Slow IV Push, ONCE, 1 dose, 11/08/20 at 1345, [facility] NaCl 0.9% (NS) bolus infusion 1,000 mL 11-08 19:30: 00 11-08 20:37 :00 No 1000mL at 999 mL/hr, 1,000 mL, IV Infusion, ONCE, 1 dose, 11/08/20 at 1330, [facility] NaCl 0.9% (NS) bolus infusion 1,000 mL 11-08 18:30: 00 11-08 19:39 :00 No 1000mL at 999 mL/hr, 1,000 mL, IV Infusion, ONCE, 1 dose, 11/08/20 at 1230, [facility] ondansetron (ZOFRAN ODT) 4 mg disintegrat ing tablet 11-08 00:00: 00 09-11 00:00 :00 No [id number] 4mg Take 1 tablet by mouth every 8 (eight) hours as needed for Nausea and Vomiting (N/V). [facility] dicyclomine 20 mg tablet 11-08 00:00: 00 09-11 00:00 :00 No [id number] 20mg Take 1 tablet by mouth 4 (four) times daily as needed for Abdominal pain. [facility] No known medications No Un [facility] Vital Signs Vital Name Observation Time Observation Value Comments S ource Systolic blood pressure 2025-02-08 01:51:00 145 mm[Hg] [facility] Diastolic blood pressure 2025-02-08 01:51:00 89 mm[Hg] [facility] Heart rate 2025-02-08 01:51:00 100 /[facility] Body temperature 2025-02-08 01:51:00 36.67 Zenaida [facility] Respiratory rate 2025-02-08 01:51:00 20 /min [facility] Body height 2025-02-08 01:51:00 175.3 cm [facility] Body weight 2025-02-08 01:51:00 90.719 kg [facility] BMI 2025-02-08 01:51:00 29.53 kg/m2 [facility] Oxygen saturation in Arterial blood by Pulse oximetry 2025-02-08 01:51:00 100 /min [facility] Systolic blood pressure 2024-01-07 20:00:00 118 mm[Hg] [facility] Diastolic blood pressure 2024-01-07 20:00:00 91 mm[Hg] [facility] Heart rate 2024-01-07 20:00:00 82 /min [facility] Respiratory rate 2024-01-07 20:00:00 16 /min [facility] Oxygen saturation in Arterial blood by Pulse oximetry 2024-01-07 20:00:00 97 /min [facility] Body temperature 2024-01-07 13:13:00 36.94 Zenaida [facility] Body weight 2024-01-07 13:13:00 95.255 kg [facility] BMI 2024-01-07 13:13:00 31.01 kg/m2 [facility] Body height 2024-01-07 13:11:00 175.3 cm [facility] Systolic blood pressure 2023-11-29 15:36:00 115 mm[Hg] Parvin Franco ld - External Diastolic blood pressure 2023-11-29 15:36:00 80 mm[Hg] Parvin Franco ld - External Heart rate 2023-11-29 15:36:00 [...] Systolic blood pressure 2022-09-14 17:21:00 130 mm[Hg] [facility] Diastolic blood pressure 2022-09-14 17:21:00 93 mm[Hg] [facility] Heart rate 2022-09-14 17:21:00 87 /min [facility] Body temperature 2022-09-14 17:21:00 35.56 Zenaida [facility] Respiratory rate 2022-09-14 17:21:00 18 /min [facility] Oxygen saturation in Arterial blood by Pulse oximetry 2022-09-14 17:21:00 98 /min [facility] Body weight 2022-09-14 09:02:00 98.476 kg [facility] BMI 2022-09-14 09:02:00 32.06 kg/m2 [facility] Body height 2022-09-11 19:14:00 175.3 cm [facility] Systolic blood pressure 2020-11-08 21:00:00 136 mm[Hg] [facility] Diastolic blood pressure 2020-11-08 21:00:00 95 mm[Hg] [facility] Heart rate 2020-11-08 21:00:00 93 /min [facility] Respiratory rate 2020-11-08 21:00:00 16 /min [facility] Oxygen saturation in Arterial blood by Pulse oximetry 2020-11-08 21:00:00 98 /min [facility] Body temperature 2020-11-08 18:12:00 36.44 Zenaida [facility] Body height 2020-11-08 18:12:00 175.3 cm [facility] Body weight 2020-11-08 18:12:00 92.987 kg [facility] BMI 2020-11-08 18:12:00 30.27 kg/m2 [facility] Procedures Procedure Date / Time Performed Performing Clinician Source POCT GLUCOSE (AUTOMATED) 2024-01-07 19:35:00 Donna [facility] URINE DRUG (IMMUNOASSAY) - COMPREHENSIVE DRUG SCREEN 2024-01-07 18:28:00 Donna [facility] URINALYSIS 2024-01-07 18:28:00 Fercho Baugh [facility] POCT GLUCOSE (AUTOMATED) 2024-01-07 17:37:00 Elda Thompson [facility] LIPASE 2024-01-07 13:41:00 Fercho Baugh [facility] COMP. METABOLIC PANEL ([id number]) 2024-01-07 13:41:00 Fercho Baugh [facility] CBC WITH DIFF 2024-01-07 13:41:00 Fercho Baugh [facility] POCT GLUCOSE (AUTOMATED) 2022-09-14 17:22:00 Jadiel Hunter [facility] LIPASE 2022-09-14 11:57:00 Michael Jung [facility] BASIC METABOLIC PANEL (NA, K, CL, CO2, GLUCOSE, BUN, CREATININE, CA) 2022-09-14 11:57:00 Michael Jung [facility] LIPID PANEL ([id number])(TOTAL CHOLESTEROL, TRIGLYCERIDES, HDL) 2022-09-14 11:57:00 Michael Jung [facility] CBC WITH DIFF 2022-09-14 11:57:00 Michael Jung [facility] POCT GLUCOSE (AUTOMATED) 2022-09-14 02:35:00 Jadiel Hunter [facility] POCT GLUCOSE (AUTOMATED) 2022-09-13 22:59:00 Jadiel Hunter [facility] POCT GLUCOSE (AUTOMATED) 2022-09-13 17:43:00 Jadiel Hunter [facility] POCT GLUCOSE (AUTOMATED) 2022-09-13 13:30:00 Jadiel Hunter yazmin [facility] BASIC METABOLIC PANEL (NA, K, CL, CO2, GLUCOSE, BUN, CREATININE, CA) 2022-09-13 09:26:00 Emy Hyde [facility] POCT GLUCOSE (AUTOMATED) 2022-09-12 22:34:00 Jadiel Hunter [facility] POCT GLUCOSE (AUTOMATED) 2022-09-12 17:15:00 Jadiel Hunter [facility] POCT GLUCOSE (AUTOMATED) 2022-09-12 13:44:00 Jadiel Hunter [facility] MAGNESIUM 2022-09-12 09:07:00 Lazaro Hunter [facility] HEPATIC FUNCTION PANEL ([id number]) (ALB,T.PRO,BILI T,BU/BC,ALT,AST,ALK PHOS) 2022-09-12 09:07:00 Lazaro Hunter [facility] BASIC METABOLIC PANEL (NA, K, CL, CO2, GLUCOSE, BUN, CREATININE, CA) 2022-09-12 09:07:00 Emy Hyde [facility] LIPID PANEL ([id number])(TOTAL CHOLESTEROL, TRIGLYCERIDES, HDL) 2022-09-12 09:07:00 Lazaro Hunter [facility] CBC WITH DIFF 2022-09-12 09:07:00 Emy Hyde [facility] POCT GLUCOSE (AUTOMATED) 2022-09-12 09:01:00 Tierney Ko [facility] POCT GLUCOSE (AUTOMATED) 2022-09-12 02:38:00 [facility] POCT GLUCOSE (AUTOMATED) 2022-09-11 22:42:00 Tierney Ko [facility] POCT GLUCOSE (AUTOMATED) 2022-09-11 18:57:00 [facility](AGE >30DAYS) 2022-09-11 17:22:00 Mateus [facility] POCT GLUCOSE (AUTOMATED) 2022-09-11 17:21:00 [facility] PELVIS W CONTRAST 2022-09-11 16:38:00 Mateus [facility] POCT GLUCOSE (AUTOMATED) 2022-09-11 15:59:00 Augustin Ignacio [facility] LIPASE 2022-09-11 15:48:[address] [facility] COMP. METABOLIC PANEL (02122) 2022-09-11 15:48:00 Augustin Ignacio [facility] CBC WITH DIFF 2022-09-11 15:48:00 Augustin Ignacio [facility] GLYCOSYLATED HEMOGLOBIN (A1C) 2022-09-11 15:48:00 Esa Ko [facility] URINALYSIS 2022-09-11 15:46:[address] CONSENT/REFUSAL FOR DIAGNOSIS AND TREATMENT 2022-09-11 15:16:37 Doctor Unassigned, [place] [facility] POCT GLUCOSE (AUTOMATED) 2020-11-08 20:26:00 Syeda Persaud [facility] LIPASE 2020-11-08 18:29[facility] (08708[facility] (ALB,T.PRO,BILI T,BU/BC,ALT,AST,ALK PHOS) 2020-11-08 18:29:00 Syeda Persaud [facility] BASIC METABOLIC PANEL (NA, K, CL, CO2, GLUCOSE, BUN, CREATININE, CA) 2020-11-08 18:29:00 [facility] 2020-11-08 18:29:00 Syeda Persaud [facility] URINALYSIS 2020-11-08 18:29:00 Ramses [facility] NOTICE OF PRIVACY PRACTICES 2020-11-08 18:06:16 Doctor Unassigned, [place] [facility] CONSENT/REFUSAL FOR DIAGNOSIS AND TREATMENT 2020-11-08 18:06:04 Doctor Unassigned, [place] [facility] Encounters Start Date/Time End Date/Time Encounter Type Admission Type Attending [facility] Care Facility Care Department Encounter ID Source 2021-09-30 12:34:38 [id number] [facility] 2025-02-20 00:00:00 2025-02-20 12:02:02 Letter (Out) Campaigns, Generic Provider Campaigns, Generic Provider [facility] (CARLOS) 1.2.840.114 350.1.13.10 4.2.7.2.686 [id number] [facility] 2025-02-07 20:52:00 2025-02-07 21:53:00 Emergency X CARLOS SANCHES [facility] ERT [id number] [facility] 2024-11-15 02:03:00 2024-11-15 05:48:00 Emergency X JIM TRUONG PAUL [facility] ERT [id number] [facility] 2024-08-08 00:00:00 2024-08-08 00:00:00 Outpatient PREZAS, MICHAEL HERNÁNDEZ PARVIN [id number] [facility] 2024-05-10 00:00:00 2024-05-10 00:00:00 Outpatient PREZAS, MICHAEL HERNÁNDEZ [id number] [facility] 2024-04-01 00:00:00 2024-04-01 00:00:00 Outpatient PREZAS, MICHAEL HERNÁNDEZ [id number] [facility] 2024-03-30 00:00:00 2024-03-30 00:00:00 Outpatient PREZAS, MICHAEL HERNÁNDEZ PARVIN [id number] [facility] 2024-03-29 00:00:00 2024-03-29 00:00:00 Outpatient PREZAS, MICHAEL HERNÁNDEZ PARVIN [id number] [facility] 2024-03-27 00:00:00 2024-03-27 00:00:00 Outpatient PREZAS, MICHAEL HERNÁNDEZ PARVIN [id number] [facility] 2024-03-16 00:00:00 2024-03-16 00:00:00 Outpatient PREZAS, MICHAEL HERNÁNDEZ PARVIN [id number] [facility] 2024-02-28 16:15:00 2024-02-28 16:15:00 Outpatient PARVIN PARVIN [id number] [facility] 2024-02-28 00:00:00 2024-02-28 00:00:00 Outpatient PREZAS, MICHAEL HERNÁNDEZ PARVIN [id number] [facility] 2024-02-27 00:00:00 2024-02-27 00:00:00 Outpatient PREZAS, MICHAEL HERNÁNDEZ PARVIN [id number] [facility] 2024-02-27 00:00:00 2024-02-27 00:00:00 Outpatient PREZAS, MICHAEL PARVIN PARVIN [id number] Parvin [facility] 2024-02-21 15:30:00 2024-02-21 15:30:00 Outpatient BROOKLYNN AGUILAR [id number] [facility] 2024-02-21 00:00:00 2024-02-21 00:00:00 Outpatient BROOKLYNN AGUILAR PARVIN HERNÁNDEZ [id number] Parvin [facility] 2024-01-23 14:15:00 2024-01-23 14:15:00 Outpatient NANCY WEST PARVIN HERNÁNDEZ [id number] Parvin [facility] 2024-01-20 00:00:00 2024-01-20 00:00:00 Outpatient MICHAEL BRAVO [id number] [facility] 2024-01-18 00:00:00 2024-01-18 11:18:00 Letter (Out) Campaigns, Generic Provider [facility] 1.2.840.114 350.1.13.10 4.2.7.2.686 [id number] [facility] 2024-01-10 00:00:00 2024-01-10 00:00:00 Outpatient MICHAEL BRAVO [id number] [facility] 2024-01-09 10:30:00 2024-01-09 10:30:00 Outpatient MICHAEL BRAVO [id number] [facility] 2024-01-07 08:13:00 2024-01-07 15:06:00 Emergency ELDA DUMONT [facility] [id number] [facility] 2024-01-07 08:13:00 2024-01-07 15:06:00 Emergency Pablo [facility] 1..840.114 350.1.13.10 4.2.7.2.686 [id number] [facility] 2023-12-30 15:30:00 2023-12-30 15:30:00 Outpatient MICHAEL BRAVO [id number] [facility] 2023-12-27 16:30:00 2023-12-27 16:30:00 Outpatient PARVIN HERNÁNDEZ [id number] [facility] 2023-12-21 00:00:00 2023-12-21 00:00:00 Outpatient MICHAEL BRAVO [id number] [facility] 2023-12-13 00:00:00 2023-12-13 00:00:00 Outpatient PREZAS, MICHAEL HERNÁNDEZ PARVIN [id number] [facility] 2023-12-05 00:00:00 2023-12-05 00:00:00 Outpatient PREZAS, MICHAEL HERNÁNDEZ PARVIN [id number] [facility] 2023-11-29 10:30:00 2023-11-29 10:30:00 Outpatient PREZAS, MICHAEL HERNÁNDEZ PARVIN [id number] [facility] 2023-11-28 14:00:00 2023-11-28 14:00:00 Outpatient VALENTINA, GENESIS HERNÁNDEZ PARVIN [id number] [facility] 2023-11-28 00:00:00 2023-11-28 00:00:00 Outpatient PREZAS, MICHAEL PARVIN HERNÁNDEZ [id number] [facility] 2023-11-07 00:00:00 2023-11-07 00:00:00 Outpatient PREZAS, MICHALE HERNÁNDEZ PARVIN [id number] [facility] 2023-10-27 00:00:00 2023-10-27 00:00:00 Outpatient PREZAS, MICHAEL PARVIN HERNÁNDEZ [id number] [facility] 2023-10-26 00:00:00 2023-10-26 00:00:00 Outpatient PREZAS, MICHAEL PARVIN HERNÁNDEZ [id number] [facility] 2023-10-26 00:00:00 2023-10-26 00:00:00 Outpatient PREZAS, MICHAEL PARVIN HERNÁNDEZ [id number] [facility] 2023-10-19 16:45:00 2023-10-19 16:45:00 Outpatient PREZAS, MICHAEL PARVIN HERNÁNDEZ [id number] [facility] 2023-10-18 14:30:00 2023-10-18 14:30:00 Outpatient PARVIN HERNÁNDEZ [id number] [facility] 2023-10-10 00:00:00 2023-10-10 00:00:00 Outpatient PREZAS, MICHAEL PARVIN HERNÁNDEZ [id number] [facility] 2023-10-07 00:00:00 2023-10-07 00:00:00 Outpatient PREZAMICHAEL Saini [id number] [facility] 2023-10-06 10:45:00 2023-10-06 10:45:00 Outpatient LAB90 PARVIN HERNÁNDEZ [id number] [facility] 2023-10-06 09:30:00 2023-10-06 09:30:00 Outpatient PREZAMICHAEL Saini [id number] [facility] 2023-08-24 10:15:00 2023-08-24 10:15:00 Outpatient MICHAEL BRAVO [id number] [facility] 2022-09-15 00:00:00 2022-09-15 00:00:00 Transition of Care Nabil Almanzar 1..840.114 350.1.13.10 4.2.7.2.686 [id number] [facility] 2022-09-11 09:26:00 2022-09-14 13:00:00 Inpatient X LAZARO HUNTER [facility] [id number] [facility] 2022-09-11 09:26:00 2022-09-14 13:00:00 Hospital Encounter Augustin Ignacio [place] [facility] 1..840.114 350.1.13.10 4.2.7.2.686 [id number] [facility] 2020-11-08 12:16:00 2020-11-08 15:38:00 Emergency Syeda Persaud [facility] 1.2.840.114 350.1.13.10 4.2.7.2.686 [id number] [facility] 2020-11-08 12:06:00 2020-11-08 12:06:00 Emergency X SYEDA PERSAUD [facility] ERT [id number] [facility] 2020-11-08 00:00:00 2020-11-08 00:00:00 Orders Only Doctor Unassigned, [place] [facility] 1.2.840.114 350.1.13.10 4.2.7.2.686 [id number] [facility] Results Test Description Test Time Test Comments Results Result Co mments Source [facility] GLUCOSE(AGE >30DAYS)2024-01-07 19:35:00* Test Item Value Reference Range Interpretation Comme [facility] POCT Glu (age>30days) (test code = 3342) 171 mg/dL 70-110 A Lab Interpretation (test cod e = 54073-8) Abnormal [facility] GLUCOSE (AUTOMATED)2024-01-07 17:39:20* Test Item Value Reference Range Interpretation Comme [facility] POCT GLU (test code = 6309503328) 155 mg/dL 70-110 H Lab Interpretation (test cod e = 62656-8) [facility] 14:35:51* Test Item Value Reference Range Interpretation Comme [facility] LIPASE (test code = 1682634125) 18 U/L 0-220 Lab Interpretation (test cod e = 38268-0) Normal [facility]. Metabolic Panel (57999)2024-01-07 14:35:51* Test Item Value Reference Range Interpretation Comme nts NA (test code = 9769682164) 139 mmol/L 135-145 K (test code = 3042068510) 3.6 mmol/L 3.5-5.0 CL (test code = 0337605708) 100 mmol/L 98-108 CO2 TOTAL (test code = 2343618026) 24 mmol/L 23-31 AGAP (test code = 2055571023) 15 2-16 BUN (test code = 1604356607) 9 mg/dL 7-23 GLUCOSE (test code = 2231099145) 315 mg/dL 70-110 H CREATININE (test code = 2160-0) 0.68 mg/dL 0.60-1.25 TOTAL BILI (test code = 9406106783) 1.1 mg/dL 0.1-1.1 CALCIUM (test code = 1867097339) 9.2 mg/dL 8.6-10.6 T PROTEIN (test code = 0120284559) 7.5 g/dL 6.3-8.2 ALBUMIN (test code = 8285809250) 4.4 g/dL 3.5-5.0 ALK PHOS (test code = 1580819668) 156 U/L 34-122 H ALTv (test code = 1742-6) 62 U/L 5-50 H AST(SGOT) (test code = 1595085775) 52 U/L 13-40 H eGFR (test code = 51343-1) 129.0 mL/min/1.73m2 CKD-EPI eGFR (2020). Assuming creatinine has been stable day-to-day for at least three months, the eGFR indicates Category G1 (>= 90 mL/min/1.73 m2) Lab Interpretation (test code = 49300-1) Abnormal [facility] with [id number] 14:09:10* Test Item Value Reference Range Interpretation [...] g/dL 31.2-35.0 H RDW-SD (test code = 32726-6) 33.4 fL 38.5-51.6 L RDW-CV (test code = 788-0) 11.8 % 12.1-15.4 L PLT (test code = 777-3) 286 150-328 MPV (test code = 95261-4) 11.2 fL 9.8-13.0 NRBC/100 WBC (test code = 2210722729) 0.0 0.0-10.0 NRBC x10^3 (test code = 6261046348) See_Comment [Automated messa ge] The system which generated this result transmitted reference range: 10*3/?L. The reference range was not used to interpret this result as normal/abnormal. GRAN MAT (NEUT) % (test code = 770-8) 65.3 % IMM GRAN % (test code = 9067077250) 0.40 % LYMPH % (test code = 736-9) 21.8 % MONO % (test code = 5905-5) 11.1 % EOS % (test code = 713-8) 1.0 % BASO % (test code = 706-2) 0.4 % GRAN MAT x10^3(ANC) (test code = 8496894242) 5.79 10*3/uL 1.99-6.95 IMM GRAN x10^3 (test code = 9990987514) 0.04 10*3/uL 0.00-0.06 LYMPH x10^3 (test code = 731-0) 1.94 10*3/uL 1.09-3.23 MONO x10^3 (test code = 742-7) 0.99 10*3/uL 0.36-1.02 EOS x10^3 (test code = 711-2) 0.09 10*3/uL 0.06-0.53 BASO x10^3 (test code = 704-7) 0.04 10*3/uL 0.01-0.09 Lab Interpretation (test code = 18568-1) Abnormal [facility] GLUCOSE (AUTOMATED)2022-09-14 18:35:20* Test Item Value Reference Range Interpretation Comme nts POCT GLU (test code = 1003505166) 283 mg/dL 70-110 H Lab Interpretation (test cod e = 62078-0) Abnormal [facility] GLUCOSE (AUTOMATED)2022-09-14 02:40:24* Test Item Value Reference Range Interpretation Comme nts POCT GLU (test code = 3047078567) 191 mg/dL 70-110 H Lab Interpretation (test cod e = 33497-4) Abnormal [facility] GLUCOSE (AUTOMATED)2022-09-13 23:13:20* Test Item Value Reference Range Interpretation Comme nts POCT GLU (test code = 5623724503) 126 mg/dL 70-110 H Lab Interpretation (test cod e = 60700-7) Abnormal [facility] GLUCOSE (AUTOMATED)2022-09-13 17:51:10* Test Item Value Reference Range Interpretation Comme nts POCT GLU (test code = 6424755584) 270 mg/dL 70-110 H Lab Interpretation (test cod e = 62157-2) Abnormal [facility] GLUCOSE (AUTOMATED)2022-09-13 14:08:01* Test Item Value Reference Range Interpretation Comme nts POCT GLU (test code = 0747468395) 177 mg/dL 70-110 H Lab Interpretation (test cod e = 74079-0) Abnormal [facility] GLUCOSE (AUTOMATED)2022-09-12 22:53:55* Test Item Value Reference Range Interpretation Comme nts POCT GLU (test code = 7295926349) 207 mg/dL 70-110 H Lab Interpretation (test cod e = 59898-5) Abnormal [facility] GLUCOSE (AUTOMATED)2022-09-12 18:09:02* Test Item Value Reference Range Interpretation Comme nts POCT GLU (test code = 7043451171) 92 mg/dL 70-110 Lab Interpretation (test cod e = 97675-1) [facility]TOTAL CHOLESTEROL, TRIGLYCERIDES, HDL)2022-09-12 14:58:08* Test Item Value Reference Range Interpretation Comme nts CHOL (test code = 4216221016) 138 mg/dL 120-200 HDL (test code = 9402110610) 23 mg/dL See_Comment L [Automated messa ge] The system which generated this result transmitted reference range: >=40. The reference range was not used to interpret this result as normal/abnormal. HDLC RATIO (test code = 2567194612) See_Comment H [Automated messa ge] The system which generated this result transmitted reference range: <=5.0. The reference range was not used to interpret this result as normal/abnormal. TRIG (test code = 5409252649) 171 mg/dL 30-170 H LDL CHOL (test code = 27587-5) 81 mg/dL See_Comment [Automated messa ge] The system which generated this result transmitted reference range: <=160. The reference range was not used to interpret this result as normal/abnormal. VLDL (test code = 4844047941) 34 mg/dL 5-60 Lab Interpretation (test code = 11317-7) [facility]12 13:54:38* Test Item Value Reference Range Interpretation Comme nts POCT GLU (test code = 0949825197) 84 mg/dL 70-110 Lab Interpretation (test cod e = 70614-9) [facility] (27718) (ALB,T.PRO,BILI T,BU/BC,ALT,AST,ALK PHOS)2022-09-12 13:03:03* Test Item Value Reference Range Interpretation Comme nts TOTAL BILI (test code = 8822536416) 1.0 mg/dL 0.1-1.1 BILI UNCON (test code = 1613757695) 0.8 mg/dL 0.1-1.1 BILI CONJ (test code = 3391637754) 0.0 mg/dL 0.0-0.3 T PROTEIN (test code = 2033088031) 6.7 g/dL 6.3-8.2 ALBUMIN (test code = 4838264158) 4.0 g/dL 3.5-5.0 ALK PHOS (test code = 8358133201) 106 U/L 34-122 ALTv (test code = 1742-6) 146 U/L 5-50 H AST(SGOT) (test code = 7715359405) 81 U/L 13-40 H Lab Interpretation (test cod e = 20726-5) [facility] 13:02:43* Test Item Value Reference Range Interpretation Comme nts MAGNESIUM (test code = 4035656146) 1.8 mg/dL 1.7-2.4 Lab Interpretation (test cod e = 07056-2) [facility] (NA, K, CL, CO2, GLUCOSE, BUN, CREATININE, CA)2022-09-12 12:10:26* Test Item Value Reference Range Interpretation Comme nts NA (test code = 9901683615) 142 mmol/L 135-145 K (test code = 5804089056) 3.1 mmol/L 3.5-5.0 L CL (test code = 3616178988) 106 mmol/L 98-108 CO2 TOTAL (test code = 5663505381) 24 mmol/L 23-31 AGAP (test code = 2482599339) 2-16 BUN (test code = 8990855671) 8 mg/dL 7-23 GLUCOSE (test code = 8685315714) 73 mg/dL 70-110 CREATININE (test code = 3324080812) 0.72 mg/dL 0.60-1.25 CALCIUM (test code = 6510745519) 8.1 mg/dL 8.6-10.6 L eGFR (test code = 8444914999) mL/min/1.73m2 RAFAEL (test code = RAFAEL) Association [...] imaging tests). Lab Interpretation (test code = 10599-2) Abnormal [facility] WITH [id number] 11:46:12* Test Item Value Reference Range Interpretation [...] 35.0 g/dL 31.2-35.0 RDW-SD (test code = 44641-8) 36.0 fL 38.5-51.6 L RDW-CV (test code = 788-0) 11.9 % 12.1-15.4 L PLT (test code = 777-3) See_Comment [Automated messa ge] The system which generated this result transmitted reference range: 150 - 328 10*3/?L. The reference range was not used to interpret this result as normal/abnormal. MPV (test code = 11751-9) 10.7 fL 9.8-13.0 NRBC/100 WBC (test code = 1977989248) See_Comment [Automated ELENZA ssage] The system which generated this result transmitted reference range: 0.0 - 10.0 /100 WBCs. The reference range was not used to interpret this result as normal/abnormal. NRBC x10^3 (test code = 0729393199) See_Comment [Automated messa ge] The system which generated this result transmitted reference range: 10*3/?L. The reference range was not used to interpret this result as normal/abnormal. GRAN MAT (NEUT) % (test code = 770-8) 50.2 % IMM GRAN % (test code = 3773880582) 0.40 % LYMPH % (test code = 736-9) 37.0 % MONO % (test code = 5905-5) 8.3 % EOS % (test code = 713-8) 3.6 % BASO % (test code = 706-2) 0.5 % GRAN MAT x10^3(ANC) (test code = 1994117964) 4.81 10*3/uL 1.99-6.95 IMM GRAN x10^3 (test code = 2753667421) 0.04 10*3/uL 0.00-0.06 LYMPH x10^3 (test code = 731-0) 3.56 10*3/uL 1.09-3.23 H MONO x10^3 (test code = 742-7) 0.80 10*3/uL 0.36-1.02 EOS x10^3 (test code = 711-2) 0.35 10*3/uL 0.06-0.53 BASO x10^3 (test code = 704-7) 0.05 10*3/uL 0.01-0.09 Lab Interpretation (test code = 06279-8) Abnormal [facility] GLUCOSE (AUTOMATED)2022-09-12 11:19:34* Test Item Value Reference Range Interpretation Comme nts POCT GLU (test code = 3495801764) 70 mg/dL 70-110 Lab Interpretation (test cod e = 37780-8) Normal [facility] GLUCOSE (AUTOMATED)2022-09-12 02:46:59* Test Item Value Reference Range Interpretation Comme nts POCT GLU (test code = 6083608573) 90 mg/dL 70-110 Lab Interpretation (test cod e = 17803-1) Normal [facility] GLUCOSE (AUTOMATED)2022-09-11 23:13:35* Test Item Value Reference Range Interpretation Comme nts POCT GLU (test code = 3440988308) 120 mg/dL 70-110 H Lab Interpretation (test cod e = 80889-3) Abnormal [facility] Center[facility]cosylated Hemoglobin (A1C)2022-09-11 20:41:39* Test Item Value Reference Range Interpretation Comme nts HGB A1C (test code = 4548-4) 10.1 % 4.0-5.7 H RAFAEL (test code = RAFAEL) Reference RangesNormal: <5.7%Prediabetes: 5.7 - 6.4%Diabetes: > 6.5% Lab Interpretation (test code = 46223-2) Abnormal [facility] GLUCOSE (AUTOMATED)2022-09-11 19:01:23* Test Item Value Reference Range Interpretation Comme nts POCT GLU (test code = 2914933872) 302 mg/dL 70-110 H Lab Interpretation (test cod e = 51640-8) Abnormal [facility] GLUCOSE (AUTOMATED)2022-09-11 19:01:23* Test Item Value Reference Range Interpretation Comme nts POCT GLU (test code = 0398296965) 277 mg/dL 70-110 H Lab Interpretation (test cod e = 84540-1) Abnormal [facility] GLUCOSE (AUTOMATED)2022-09-11 19:01:23* Test Item Value Reference Range Interpretation Comme nts POCT GLU (test code = 8422801359) 283 mg/dL 70-110 H Lab Interpretation (test cod e = 48473-5) Abnormal [facility] GLUCOSE(AGE >30DAYS)2022-09-11 17:22:00* Test Item Value Reference Range Interpretation Comme nts POCT Glu (age>30days) (test code = 3342) 277 mg/dL 70-110 A Lab Interpretation (test cod e = 46618-0) [facility]normal [facility] Met[facility] [id number] 16:11:48* Test Item Value Reference Range Interpretation Comme nts NA (test code = 3184083598) 137 mmol/L 135-145 K (test code = 4993068297) 4.5 mmol/L 3.5-5.0 CL (test code = 8470078475) 102 mmol/L 98-108 CO2 TOTAL (test code = 8530289190) 22 mmol/L 23-31 L AGAP (test code = 4711383950) 2-16 BUN (test code = 4462913503) 15 mg/dL 7-23 GLUCOSE (test code = 9927348581) 318 mg/dL 70-110 H CREATININE (test code = 8297433079) 0.76 mg/dL 0.60-1.25 TOTAL BILI (test code = 6048823717) 1.5 mg/dL 0.1-1.1 H CALCIUM (test code = 6382753565) 9.1 mg/dL 8.6-10.6 T PROTEIN (test code = 0353939413) 7.7 g/dL 6.3-8.2 ALBUMIN (test code = 3860038061) 5.0 g/dL 3.5-5.0 ALK PHOS (test code = 5367800582) 124 U/L 34-122 H ALTv (test code = 1742-6) 173 U/L 5-50 H AST(SGOT) (test code = 6678952312) 76 U/L 13-40 H eGFR (test code = 8014437204) mL/min/1.73m2 RAFAEL (test code = RAFAEL) Association [...] imaging tests). Lab Interpretation (test code = 07021-7) Abnormal [facility], Ciovu9887-12-27 16:11:22* Test Item Value Reference Range Interpretation Comme nts LIPASE (test code = 2796872875) 22 U/L 0-220 Lab Interpretation (test cod e = 02881-3) Normal [facility] with Qdkagaekqrxi2884-75-31 15:57:05* Test Item Value Reference Range Interpretation [...] g/dL 31.2-35.0 H RDW-SD (test code = 68447-3) 35.5 fL 38.5-51.6 L RDW-CV (test code = 788-0) 11.8 % 12.1-15.4 L PLT (test code = 777-3) See_Comment [Automated messa ge] The system which generated this result transmitted reference range: 150 - 328 10*3/?L. The reference range was not used to interpret this result as normal/abnormal. MPV (test code = 44892-3) 10.3 fL 9.8-13.0 NRBC/100 WBC (test code = 4010140852) See_Comment [Automated ELENZA ssage] The system which generated this result transmitted reference range: 0.0 - 10.0 /100 WBCs. The reference range was not used to interpret this result as normal/abnormal. NRBC x10^3 (test code = 4532966834) See_Comment [Automated messa ge] The system which generated this result transmitted reference range: 10*3/?L. The reference range was not used to interpret this result as normal/abnormal. GRAN MAT (NEUT) % (test code = 770-8) 64.6 % IMM GRAN % (test code = 3526095821) 0.50 % LYMPH % (test code = 736-9) 25.3 % MONO % (test code = 5905-5) 7.3 % EOS % (test code = 713-8) 1.9 % BASO % (test code = 706-2) 0.4 % GRAN MAT x10^3(ANC) (test code = 8746354370) 7.62 10*3/uL 1.99-6.95 H IMM GRAN x10^3 (test code = 0612469203) 0.06 10*3/uL 0.00-0.06 LYMPH x10^3 (test code = 731-0) 2.98 10*3/uL 1.09-3.23 MONO x10^3 (test code = 742-7) 0.86 10*3/uL 0.36-1.02 EOS x10^3 (test code = 711-2) 0.22 10*3/uL 0.06-0.53 BASO x10^3 (test code = 704-7) 0.05 10*3/uL 0.01-0.09 Lab Interpretation (test code = 34028-0) [facility] 20:30:00* Test Item Value Reference Range Interpretation Comme nts POCT GLU (test code = 7510699227) 181 mg/dL 70-110 H Lab Interpretation (test cod e = 21624-3) Abnormal [facility] Metabolic Panel (NA, K, CL, CO2, GLUCOSE, BUN, CREATININE, CA)2020-11-08 18:48:00* Test Item Value Reference Range Interpretation Comme nts NA (test code = 8834719528) 134 mmol/L 135-145 L K (test code = 9532714999) 4.0 mmol/L 3.5-5 CL (test code = 8520546428) 96 mmol/L 98-108 L CO2 TOTAL (test code = 4356186142) 29 mmol/L 23-31 AGAP (test code = 7587549314) 2-16 BUN (test code = 2215750356) 10 mg/dL 7-23 GLUCOSE (test code = 0960256848) 368 mg/dL 70-110 H CREATININE (test code = 0794403195) 0.58 mg/dL 0.6-1.25 L CALCIUM (test code = 5435677645) 9.1 mg/dL 8.6-10.6 eGFR Calculation (Non-) (test code = 4870684910) mL/min/1.73m2 eGFR Calculation () (test code = 6053316211) mL/min/1.73m2 RAFAEL (test code = RAFAEL) Association [...] imaging tests). Lab Interpretation (test code = 68755-1) [facility] (ALB, T.PRO, BILI T, BU/BC, ALT, AST, ALK PHOS)2020-11-08 18:48:00* Test Item Value Reference Range Interpretation Comme nts TOTAL BILI (test code = 7553656941) 0.8 mg/dL 0.1-1.1 BILI UNCON (test code = 0342070824) 0.8 mg/dL 0.1-1.1 BILI CONJ (test code = 1620173966) 0.0 mg/dL 0-0.3 T PROTEIN (test code = 3731803683) 7.8 g/dL 6.3-8.2 ALBUMIN (test code = 1686361146) 4.7 g/dL 3.5-5 ALK PHOS (test code = 1279171373) 147 U/L 34-122 H ALTv (test code = 1742-6) 48 U/L 5-50 AST(SGOT) (test code = 9352922231) 42 U/L 13-40 H Lab Interpretation (test cod e = 63091-8) [facility] Pyjcq7659-92-30 18:48:00* Test Item Value Reference Range Interpretation Comme nts LIPASE (test code = 9330596112) 27 U/L 0-220 Lab Interpretation (test cod e = 67200-6) [facility] Test Item Value Reference Range Interpretation Comme nts APPEARANCE (test code = 1900540764) Clear Clear COLOR (test code = 1133093280) Yellow Yellow PH (test code = 0652816793) 4.8-8.0 SP GRAVITY (test code = 3778058790) 1.003-1.030 H GLU U QUAL (test code = 3286237723) 500 mg/dL Normal A BLOOD (test code = 8854804079) Negative Negative KETONES (test code = 9637263391) 5 mg/dL Negative A PROTEIN (test code = 2887-8) Negative Negative UROBILIN (test code = 8292912120) Normal Normal BILIRUBIN (test code = 2921348376) Negative Negative NITRITE (test code = 7063986766) Negative Negative LEUK ALYSHA (test code = 2284313893) Negative Negative RBC/HPF (test code = 0328133474) See_Comment [Automated messa ge] The system which generated this result transmitted reference range: 0 - 3 HPF. The reference range was not used to interpret this result as normal/abnormal. WBC/HPF (test code = 6226011613) See_Comment [Automated messa ge] The system which generated this result transmitted reference range: 0 - 5 HPF. The reference range was not used to interpret this result as normal/abnormal. BACTERIA (test code = 1767624222) Negative Negative Lab Interpretation (test code = 35773-6) Abnormal [facility] with Actmntuoknab7258-02-48 18:36:00* Test Item Value Reference Range Interpretation [...] g/dL 31.2-35 H RDW-SD (test code = 35336-9) 33.7 fL 38.5-51.6 L RDW-CV (test code = 788-0) 11.5 % 12.1-15.4 L PLT (test code = 777-3) See_Comment H [Automated messa ge] The system which generated this result transmitted reference range: 150 - 328 10*3/?L. The reference range was not used to interpret this result as normal/abnormal. MPV (test code = 11371-6) 10.2 fL 9.8-13 NRBC/100 WBC (test code = 1455487990) See_Comment [Automated me ssage] The system which generated this result transmitted reference range: 0.0 - 10.0 /100 WBCs. The reference range was not used to interpret this result as normal/abnormal. NRBC x10^3 (test code = 1457404056) <0.01 See_Comment [Automated messa ge] The system which generated this result transmitted reference range: 10*3/?L. The reference range was not used to interpret this result as normal/abnormal. GRAN MAT (NEUT) % (test code = 770-8) 60.3 % IMM GRAN % (test code = 9957293793) 0.70 % LYMPH % (test code = 736-9) 29.2 % MONO % (test code = 5905-5) 4.7 % EOS % (test code = 713-8) 3.9 % BASO % (test code = 706-2) 1.2 % GRAN MAT x10^3(ANC) (test code = 0306196556) 6.44 10*3/uL 1.99-6.95 IMM GRAN x10^3 (test code = 6986887043) 0.07 10*3/uL 0-0.06 H LYMPH x10^3 (test code = 731-0) 3.12 10*3/uL 1.09-3.23 MONO x10^3 (test code = 742-7) 0.50 10*3/uL 0.36-1.02 EOS x10^3 (test code = 711-2) 0.42 10*3/uL 0.06-0.53 BASO x10^3 (test code = 704-7) 0.13 10*3/uL 0.01-0.09 H Lab Interpretation (test code = 13328-6) Abnormal [facility] Notes Date/Time Note Provider Source 2025-02-07 21:53:44 Patient provided with discharge instructions, prescription information, and follow up information. Pt verbalizes understanding and able to teach back instructions. Pt ambulatory out of dept with steady gait. Juan Jose Quinn RN [facility] 2025-02-07 20:47:33 Jimenez Caal is a 29 year old male presents to triage ambulatory with complaint of gum infection making face swell. Patient has been treating with otc meds but getting worse. Patient diabetic Marybeth Maguire RN [facility] 2025-02-07 20:44:43 Patient called no answer [facility] 2024-01-07 12:39:09 Bedside glucose 155. Donita García RN [facility] 2024-01-07 08:29:00 Jimenez Caal is a 28 year old male presents to ED with complaints of abdominal pain, N/V/D x 2 days. Patient reports hx of pancreatitis, states "I think I'm having a flare up." Patient points to midepigastric area when identifying pain, repots tenderness, and rates pain 7 out 10. Patient is AAoX4, RR e/u on RA, NAD. [facility] 2024-01-07 08:12:17 Jimenez Caal is a 28 year old male who presents to the ED ambulatory with complaints of abdominal pain and vomiting x3 days pt reports vomiting 5 times today AOx4. Respirations even and unlabored. Skin warm and dry. NAD noted. Patient to room for further evaluation. Kojo Art RN [facility]
[2025-04-14] MEDS ORDERED: MORPHINE 4 MG/ML SYR ONE ×2 (18:24→20:51)
[2025-04-14] MEDS ORDERED: ONDANSETRON 4 MG/2 ML VIAL ONE (18:24)
[2025-04-14] MEDS ORDERED: NA CHLORIDE 0.9% 1,000 ML ONE (18:25)
[2025-04-14 19:21] LABS: Absolute Lymphocytes (CBC) 1.8 K/uL (0.7-4.9); Hematocrit 43.8 % (39.6-49.0); Hemoglobin 15.2 g/dL (13.6-17.9); MCH 29.4 pg (27.0-35.0); MCHC 34.7 g/dL (32.0-36.0); MCV 84.8 fL (80-100); MPV 9.5 fL (7.6-11.3); Nucleated RBC Absolute Count 0.0 (0-0); Nucleated Red Blood Cells % 0.3 % (0-0); RBC Red Blood Cell Count 5.17 M/uL (4.33-5.43); White Blood Count 7.10 thou/uL (4.3-10.9)
[2025-04-14 21:05] LABS: ALT/SGPT 40.0 U/L (16-61); AST/SGOT 21.0 U/L (15-37); Albumin 3.5 g/dL (3.4-5.0); Albumin/Globulin Ratio 1.0 (1.1-1.8); Alkaline Phosphatase 129.0 U/L (45-117); Anion Gap 8.0 mEq/L (5.0-15.0); BUN Blood Urea Nitrogen 13.0 mg/dL (7-18); Globulin 3.5 g/dL (2.3-3.5); Glucose Level 297.0 mg/dL (74-106); Lipase 15.0 U/L (13-75); Potassium 4.0 mEq/L (3.5-5.1)
--- NOTE | 2025-04-14 21:25 | EDPHYS ---
Physician Documentation [facility] Name: Jimenez Patrick Age: 29 yrs Sex: Male : 1995 Arrival Date: 04/14/2025 Time: 17:39 Bed 17 Private MD: ED Physician Elizabeth Holly HPI: 04/14 18:51 This 29 yrs old Male presents to ER via Ambulatory with complaints of kb Abdominal Pain - WITH HISTORY OF PANCREATITIS. 18:51 Patient is a 29-year-old male who presents for upper abdominal pain started last night kb around 9:00. States he has a history of chronic pancreatitis and this feels similar. Denies nausea or vomiting. States has been taking ibuprofen with no relief.. Historical: - Allergies: 17:56 NKA; jb4 - Home Meds: 20:15 Humulin 70/30 U-100 Insulin 100 unit/mL (70-30) Sub-Q crtg [Active]; insulin 40 units ss12 BID [Active]; - PMHx: 17:56 Chronic Pancreatitis; Diabetes - IDDM; Hypertensive disorder; jb4 - PSHx: 17:56 I\T\D; Cholecystectomy; stents x 2 in pancreas; jb4 - Immunization history:: Adult Immunizations not up to date. - Infectious Disease History:: Denies. - Social history:: Smoking status: Reported history of juuling and/or vaping. ROS: 18:50 Constitutional: As per HPI kb Exam: 18:50 Constitutional: This is a well developed, well nourished patient who is awake, alert, kb and in no acute distress. Head/Face: Normocephalic, atraumatic. ENT: Moist Mucous membranes Cardiovascular: Regular rate Respiratory: Respirations even and unlabored. No increased work of breathing. Talking in full sentences Skin: Warm, dry with normal turgor. Normal color. MS/ Extremity: Pulses equal, no cyanosis. Neurovascular intact. Full, normal range of motion. Neuro: Awake and alert, GCS 15, oriented to person, place, time, and situation. 18:50 Abdomen/GI: Inspection: abdomen appears normal, Bowel sounds: normal, Palpation: soft, in all quadrants, mild abdominal tenderness, in the epigastric area, right upper quadrant and left upper quadrant, Vital Signs: 17:55 BP 130 / 90; Pulse 89; Resp 16; Temp 97.5(TE); Pulse Ox 100% on R/A; Weight 85.28 kg; jb4 Height 5 ft. 9 in. (R); Pain 6/10; 19:19 BP 120 / 81; Pulse 68; Resp 16 S; Pulse Ox 100% on R/A; ss12 20:15 BP 131 / 90; Pulse 63; Resp 16 S; Pulse Ox 100% on R/A; ss12 21:00 BP 128 / 82; Pulse 74; Resp 16; Pulse Ox 100% on R/A; ss12 17:55 Body Mass Index 27.76 (85.28 kg, 175.26 cm) jb4 17:55 Pain Scale: Adult jb4 MDM: 17:47 Medical Screening Exam initiated kb 21:20 Differential diagnosis: gastritis, non-specific abd pain, pancreatitis. Data reviewed: vital signs, nurses notes. Test considered but Not performed: CT: ct abd considered but vital signs stable, pt is nontoxic in appearance, labs reassuring, pt has had this pain several times in the past. Counseling: I had a detailed discussion with the patient and/or guardian regarding the historical points, exam findings, and any diagnostic results supporting the discharge/admit diagnosis, lab results, the need for outpatient follow up, a family practitioner, to return to the emergency department if symptoms worsen or persist or if there are any questions or concerns that arise at home. 04/14 17:49 Order name: CBC with Diff; Complete Time: 19:36 4 04/14 17:49 Order name: CMP; Complete Time: 21:11 [facility] 04/14 17:49 Order name: Lipase; Complete Time: 21:11 [facility] 04/14 17:49 Order name: IV Saline Lock; Complete Time: 18:43 [facility] 04/14 17:49 Order name: Labs collected and sent; Complete Time: 18:43 4 Administered Medications: 18:43 Drug: Ondansetron IVP 4 mg IVP once; over 2 minutes Route: IVP; Site: right antecubital;bp 19:00 Follow up: Response: No adverse reaction; Nausea is decreased 12 18:43 Drug: morphine IVP or IV 4 mg IVP once over 4 mins Route: IVP; Infused Over: 4 mins; bp Site: right antecubital; 19:00 Follow up: Response: No adverse reaction; Pain is decreased ss12 18:43 Drug: NS 0.9% IV 1000 ml IV at 1 bolus Per protocol; to be given as a bolus over 60 bp minutes Route: IV; Rate: 1 bolus; Site: right antecubital; 20:54 Follow up: IV Status: Completed infusion; IV Intake: 1000ml ss12 21:02 Drug: morphine IVP or IV 4 mg IVP once over 4 mins Route: IVP; Infused Over: 4 mins; tb4 Site: right antecubital; 21:27 Follow up: Response: No adverse reaction; Pain is decreased ss12 Disposition Summary: 04/14/25 21:25 Discharge Ordered Notes: Location: Home kb Condition: Stable kb Diagnosis - Upper abdominal pain, unspecified kb Followup: kb - With: Emergency Department - When: As needed - Reason: Worsening of condition Followup: kb - With: Private Physician - When: 2 - 3 days - Reason: Recheck today's complaints, Continuance of care, Re-evaluation by your physician Discharge Instructions: - Discharge Summary Sheet kb - Abdominal Pain, Adult, [id number] kb - Chronic Pancreatitis kb Forms: - Medication Reconciliation Form kb - Antibiotic Education kb - Prescription Opioid Use kb - Patient Portal Instructions kb - Leadership Thank You Letter kb Signatures: Dispatcher [employer] Marianela Bullock, SULY MEDEIROS-Jomar Cabral, RN RN jb4 Charlie Jonas, RN RN Karissa Morley, RN RN tb4 Mariluz Mcgraw RN RN ss12
--- NOTE | 2025-04-14 21:25 | ER ---
Nurse's Notes [facility] Name: Jimenez Patrick Age: 29 yrs Sex: Male : 1995 Arrival Date: 04/14/2025 Time: 17:39 Bed 17 Private MD: Diagnosis: Upper abdominal pain, unspecified Presentation: 04/14 17:55 Chief complaint: Patient states: I am having abdominal pain. I was doing fine until I jb4 ate some pizza and I think my pancreatitis is flairing up. Coronavirus screen: At this time, the client does not indicate any symptoms associated with coronavirus-19. Ebola Screen: No symptoms or risks identified at this time. Initial Sepsis Screen: Does the patient meet any 2 criteria? No. Patient's initial sepsis screen is negative. Does the patient have a suspected source of infection? No. Patient's initial sepsis screen is negative. Risk Assessment: Do you want to hurt yourself or someone else? Patient reports no desire to harm self or others. Onset of symptoms was April 14, 2025. Transition of care: patient was not received from another setting of care. 17:55 Method Of Arrival: Ambulatory 4 17:55 Acuity: MOSES 3 jb4 Triage Assessment: 18:44 General: Appears in no apparent distress. Behavior is cooperative, appropriate for age, bp anxious. Pain: Complains of pain in abdomen. EENT: No deficits noted. Neuro: Level of Consciousness is awake, alert, obeys commands, Oriented to Appropriate for age. Cardiovascular: Rhythm is sinus rhythm. Respiratory: No deficits noted. GI: Reports upper abdominal pain. : No signs and/or symptoms were reported regarding the genitourinary system. Derm: No deficits noted. Musculoskeletal: No deficits noted. Historical: - Allergies: 17:56 NKA; jb4 - Home Meds: 20:15 Humulin 70/30 U-100 Insulin 100 unit/mL (70-30) Sub-Q crtg [Active]; insulin 40 units ss12 BID [Active]; - PMHx: 17:56 Chronic Pancreatitis; Diabetes - IDDM; Hypertensive disorder; jb4 - PSHx: 17:56 I\T\D; Cholecystectomy; stents x 2 in pancreas; jb4 - Immunization history:: Adult Immunizations not up to date. - Infectious Disease History:: Denies. - Social history:: Smoking status: Reported history of juuling and/or vaping. Screenin:14 [facility] ED Fall Risk Assessment (Adult) History of falling in the last 3 months, ss12 including since admission No falls in past 3 months (0 pts) Confusion or Disorientation No (0 pts) Intoxicated or Sedated No (0 pts) Impaired Gait No (0 pts) Mobility Assist Device Used No (0 pt) Altered Elimination No (0 pt) Score/Fall Risk Level 0 - 2 = Low Risk Oriented to surroundings, Maintained a safe environment, Educated pt \T\ family on fall prevention, incl call for assistance when getting out of bed, Assessed \T\ reinforced patient's understanding of fall precautions. Abuse screen: Denies threats or abuse. Denies injuries from another. Nutritional screening: No deficits noted. Tuberculosis screening: No symptoms or risk factors identified. Assessment: 19:00 General: Appears in no apparent distress. comfortable, Behavior is calm, cooperative, ss12 quiet. Pain: Complains of pain in right upper quadrant and left upper quadrant Pain does not radiate. Pain currently is 4 out of 10 on a pain scale. Quality of pain is described as aching, throbbing. Neuro: No deficits noted. Level of Consciousness is awake, alert, obeys commands, Oriented to person, place, time, situation. Cardiovascular: No deficits noted. Denies nausea. Respiratory: No deficits noted. Airway is patent Respiratory effort is even, unlabored, Respiratory pattern is regular, symmetrical. GI: No deficits noted. Abdomen is flat, non-distended, Bowel sounds present X 4 quads. hypoactive in right upper quadrant Abd is soft and non tender. 19:00 : No deficits noted. No signs and/or symptoms were reported regarding the ss12 genitourinary system. EENT: No deficits noted. No signs and/or symptoms were reported regarding the EENT system. Derm: No deficits noted. No signs and/or symptoms reported regarding the dermatologic system. Derm: Skin is intact, Skin is dry, Skin is pink, warm \T\ dry. normal. Musculoskeletal: No deficits noted. No signs and/or symptoms reported regarding the musculoskeletal system. 20:07 Reassessment: Patient appears in no apparent distress at this time. Patient and/or ss12 family updated on plan of care and expected duration. Pain level reassessed. Patient is alert, oriented x 3, equal unlabored respirations, skin warm/dry/pink. 21:10 Reassessment: Patient appears in no apparent distress at this time. Patient and/or ss12 family updated on plan of care and expected duration. Pain level reassessed. Patient is alert, oriented x 3, equal unlabored respirations, skin warm/dry/pink. Vital Signs: 17:55 BP 130 / 90; Pulse 89; Resp 16; Temp 97.5(TE); Pulse Ox 100% on R/A; Weight 85.28 kg; jb4 Height 5 ft. 9 in. (R); Pain 6/10; 19:19 BP 120 / 81; Pulse 68; Resp 16 S; Pulse Ox 100% on R/A; ss12 20:15 BP 131 / 90; Pulse 63; Resp 16 S; Pulse Ox 100% on R/A; ss12 21:00 BP 128 / 82; Pulse 74; Resp 16; Pulse Ox 100% on R/A; ss12 17:55 Body Mass Index 27.76 (85.28 kg, 175.26 cm) jb4 17:55 Pain Scale: Adult jb4 ED Course: 17:44 Patient arrived in ED. gl 17:47 Marianela Moyer FNP-C is [facility]. kb 17:47 Elizabeth Holly MD is Attending Physician. kb 17:56 Triage completed. jb4 17:56 Arm band placed on right wrist. jb4 18:26 Charlie Jonas, RN is Primary Nurse. bp 18:45 Initial lab(s) drawn, by me, sent to lab. Inserted saline lock: 20 gauge in right bp forearm, using aseptic technique. Blood collected. Flushed with 10 mL NS. 20:15 Patient has correct armband on for positive identification. Provided Education on: plan ss12 of care. 20:15 No provider procedures requiring assistance completed. ss12 21:27 IV discontinued, intact, bleeding controlled, No redness/swelling at site. Pressure ss12 dressing applied. Administered Medications: 18:43 Drug: Ondansetron IVP 4 mg IVP once; over 2 minutes Route: IVP; Site: right antecubital;bp 19:00 Follow up: Response: No adverse reaction; Nausea is decreased ss12 18:43 Drug: morphine IVP or IV 4 mg IVP once over 4 mins Route: IVP; Infused Over: 4 mins; bp Site: right antecubital; 19:00 Follow up: Response: No adverse reaction; Pain is decreased ss12 18:43 Drug: NS 0.9% IV 1000 ml IV at 1 bolus Per protocol; to be given as a bolus over 60 bp minutes Route: IV; Rate: 1 bolus; Site: right antecubital; 20:54 Follow up: IV Status: Completed infusion; IV Intake: 1000ml ss12 21:02 Drug: morphine IVP or IV 4 mg IVP once over 4 mins Route: IVP; Infused Over: 4 mins; tb4 Site: right antecubital; 21:27 Follow up: Response: No adverse reaction; Pain is decreased ss12 Medication: 20:15 VIS not applicable for this client. ss12 Intake: 20:54 IV: 1000ml; Total: 1000ml. ss12 Outcome: 21:25 Discharge ordered by . kb 21:27 Discharged to home ambulatory, ss12 21:27 Condition: stable 21:27 Discharge instructions given to patient, family, Instructed on discharge instructions, follow up and referral plans. Demonstrated understanding of instructions, follow-up care, 21:34 Patient left the ED. ss12 Signatures: Marianela Moyer, ARTIFICIAL FLY TIER-C ARTIFICIAL FLY TIER-Ckb Jomar Jacome, RN RN jb4 Charlie Jonas, RN RN bp Mamie Villar, Julito Reg Karissa Cross, RN RN tb4 Mariluz Mcgraw, ERIC RN ss12 Corrections: (The following items were deleted from the chart) 20:08 19:20 Reassessment: ss12 ss12 20:14 19:00 GI: No deficits noted. Abdomen is flat, non-distended, Bowel sounds present X 4 ss12 quads. hypoactive in right upper quadrant Abd is soft and non tender ss12
[2025-04-14 22:00] VITALS: TEMP 97.5; O2SAT 100
[2025-04-14 22:04] VITALS: BP 128/82
== END 2025-04-14 21:34 | disposition home or self-care (01) ==
LOC: ER 17:39
DX: R10.12 Left upper quadrant pain (principal); E11.9 Type 2 diabetes mellitus without complications; Z79.4 Long term (current) use of insulin; Z96.89 Presence of other specified functional implants
CPT/HCPCS: 96361; 85025; 36415; 83690; 80053; 96375; 96374; 99284; J2405; J7030